=== PATIENT | female | born 1960 | race Two or more races ===

== ENCOUNTER 2017-02-20 11:14 | Inpatient (IN) | payer OTHER ==
[2017-02-20 12:19] VITALS: BMI 22.8
--- NOTE | 2017-02-20 14:28 | HP ---
CIWA Score - CIWA Score Nausea/Vomitin Muscle Tremors: 3 Anxiety: 3 Agitation: 3 Paroxysmal Sweats: 3 Orientation: 0-Oriented Tacttile Disturbances: 2-Mild Itch/Numbness/Burn Auditory Disturbances: 2-Mild Harshness/Frighten Visual Disturbances: 0-None Headache: 2-Mild CIWA-Ar Total Score: 21 Admission ROS BHS - HPI Chief Complaint: i need help to stop drinking alcohol,mmtp Allergies/Adverse Reactions: Allergies Allergy/AdvReac Type Severity Reaction Status Date / Time No Known Allergies Allergy Verified 02/20/17 14:02 History of Present Illness: this 56 years old female with alcohol depenence,seeking detox,withdrawal symptom ,mmtp 75 mgs/day, last medicated today, never been in detox before anxiety,depression,insomnia longest period of sobriety 20 years - Ebola screening Have you traveled outside of the country in the last 21 days: No (N) Have you had contact with anyone from an Ebola affected area: No Have you been sick,other than usual withdrawal symptoms: No Do you have a fever: No - Review of Systems Constitutional: No Symptoms Reported, Chills, Malaise, Night Sweats, Changes in sleep, Weakness, Unintentional Wgt. Loss EENT: reports: Nose Congestion Respiratory: reports: No Symptoms reported Cardiac: reports: No Symptoms Reported GI: reports: Diarrhea, Nausea, Poor Appetite, Vomiting, Abdominal cramping : reports: No Symptoms Reported Musculoskeletal: reports: Back Pain, Muscle Pain Integumentary: reports: Dryness Neuro: reports: Headache, Tremors Endocrine: reports: No Symptoms Reported Hematology: reports: No Symptoms Reported Psychiatric: reports: Anxious, Depressed Patient History - Patient Medical History Hx Asthma: No Hx Chronic Obstructive Pulmonary Disease (COPD): No Hx Cancer: No Hx Cardiac Disorders: No Hx Congestive Heart Failure: No Hx Hypertension: No Hx Hypercholesterolemia: No Hx Pacemaker: No HX Cerebrovascular Accident: No Hx Seizures: No Hx Dementia: No Hx Diabetes: No Hx Gastrointestinal Disorders: No Hx Genitourinary Disorders: No Hx Sexually Transmitted Disorders: No Hx Renal Disease (ESRD): No Hx Thyroid Disease: No Hx Human Immunodeficiency Virus (HIV): Yes (since 2009) Hx Hepatitis C: Yes Hx Depression: Yes (anxiety) Hx Suicide Attempt: No Hx Bipolar Disorder: No Hx Schizophrenia: No Other Medical History: n suicidal,no homicidal - Patient Surgical History Past Surgical History: No - PPD History Previous Implant?: Yes Documented Results: Negative w/o proof Implanted On Prior [facility] Admission?: No PPD to be Administered?: Yes - Reproductive History Patient : No - Smoking Cessation Smoking history: Current every day smoker Have you smoked in the past 12 months: Yes Aproximately how many cigarettes per day: 8 Hx Chewing Tobacco Use: No Initiated information on smoking cessation: Yes 'Breaking Loose' booklet given: 02/20/17 - Substance & Tx. History Hx Alcohol Use: Yes Hx Substance Use: Yes Substance Use Type: Alcohol, Heroin Hx Substance Use Treatment: No - Substances Abused Alcohol Route: Oral Frequency: Daily Amount used: 1 AND 1/2 PINTS VODKA Age of first use: 15 Date of Last Use: 02/20/17 Heroin Route: Inhalation Frequency: 1-3 times last 30 days Amount used: 1 BAG Age of first use: 25 Date of Last Use: 02/19/17 Family Disease History - Family Disease History Family Disease History: Other: Father (alcohol,), Mother ( hiv) Admission Physical Exam [facility] - Vital Signs Vital Signs: Vital Signs - 24 hr 02/20/17 12:17 Temperature 98 F Pulse Rate 83 Respiratory 18 Rate Blood Pressure 108/74 - Physical General Appearance: Yes: Moderate Distress, Tremorous, Irritable, Sweating HEENTM: Yes: Normal ENT Inspection, [place], Pharynx Normal Respiratory: Yes: Lungs Clear, Normal Breath Sounds, No Respiratory Distress Neck: Yes: Within Normal Limits, Supple, Trachea in good position Breast: Yes: Breast Exam Deferred Cardiology: Yes: Within Normal Limits, Regular Rhythm, Regular Rate, S1, S2 Abdominal: Yes: Within Normal Limits, Normal Bowel Sounds, Non Tender, Flat, Soft Genitourinary: Yes: Within Normal Limits Back: Yes: Muscle Spasm Musculoskeletal: Yes: Back pain, Muscle Pain Extremities: Yes: Tremors 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: Yes: client support coordinator II-XII NML intact, Fully Oriented, Alert, Motor Strength 5/5 Integumentary: Yes: Dry Lymphatic: Yes: Within Normal Limits - Diagnostic (1) Alcohol dependence with uncomplicated withdrawal Current Visit: Yes Status: Acute (2) Alcohol dependence with intoxication Current Visit: Yes Status: Acute (3) HIV (human immunodeficiency virus infection) Current Visit: Yes Status: Acute (4) Methadone maintenance therapy patient Current Visit: Yes Status: Acute (5) Weight loss Current Visit: Yes Status: Acute (6) Insomnia secondary to depression with anxiety Current Visit: Yes Status: Acute Cleared for Admission [facility] - Detox or Rehab [facility] Level of Care: Medically Managed Detox Regimen/Protocol: Librium [facility] Breath Alcohol Content Breath Alcohol Content: 0.464 Urine Pregancy Test - Result Urine Test Results: Negative- NO Line Present Urine Drug Screen - Results Drug Screen Negative: No Urine Drug Screen Results: OPI-Opiates, MTD-Methadone, TCA-Tricyclic Antidepress
[2017-02-20] MEDS ORDERED: MAGNESIUM CITRATE 300 ML BOTTLE PO PRN (14:38)
[2017-02-20] MEDS ORDERED: LOPERAMIDE HCL 2 MG CAPSULE PO PRN (14:38)
[2017-02-20] MEDS ORDERED: ACETAMINOPHEN 325 MG TABLET (FP) PO PRN (14:38)
[2017-02-20] MEDS ORDERED: MENTHOL/PHENOL 1 EACH UD MM PRN (14:38)
[2017-02-20] MEDS ORDERED: chlordiazePOXIDE HCL 25 MG CAPSULE PO PRN (14:38)
[2017-02-20] MEDS ORDERED: IBUPROFEN 400 MG TABLET (FP) PO PRN (14:38)
[2017-02-20] MEDS ORDERED: hydrOXYzine PAMOATE 25 MG CAPSULE (FP) PO PRN (14:38)
[2017-02-20] MEDS ORDERED: P-EPHED 60MG/TRIPROLIDI 2.5MG TABLET PO PRN (14:38)
[2017-02-20] MEDS ORDERED: guaiFENesin/D-METHORPHAN HB 10 ML UNIT-DOSE CUPS PO PRN (14:38)
[2017-02-20] MEDS ORDERED: MAGNESIUM HYDROX 2400MG/30ML ORAL SUSPENSION 30 ML CUP PO PRN (14:38)
[2017-02-20] MEDS ORDERED: MAG HYDROX/AL HYDROX/SIMETH 30 ML UNIT-DOSE CUP PO PRN (14:38)
[2017-02-20] MEDS ORDERED: chlordiazePOXIDE HCL 25 MG CAPSULE PO ONE (15:29)
[2017-02-20 16:56] LABS: URINE APPEARANCE CLEAR; URINE BILIRUBIN NEGATIVE (NEGATIVE); URINE BLOOD 1+ (NEGATIVE); URINE COLOR STRAW; URINE GLUCOSE (UA) NEGATIVE (NEGATIVE); URINE KETONE NEGATIVE (NEGATIVE); URINE LEUK ESTERASE NEGATIVE (NEGATIVE); URINE NITRITE NEGATIVE (NEGATIVE); URINE PROTEIN NEGATIVE (NEGATIVE); URINE UROBILINOGEN NEGATIVE mg/dL (0.2-1.0)
[2017-02-20] MEDS: chlordiazePOXIDE HCL 25 MG CAPSULE PO SCH ×2 (17:05→22:08)
[2017-02-20 17:08] LABS: EPI CELLS RARE /HPF (FEW)
[2017-02-20] MEDS: NICOTINE 14 MG/24 HOURS TOPICAL PATCH TD SCH (17:11)
--- NOTE | 2017-02-20 18:31 | CONSULT ---
[facility] Psychiatric Consult - Data Date of interview: 02/20/17 Admission source: [facility] Identifying data: Pt. is a 56 year old single, mother of two, and currently unemployed. This is patient's first admission to [facility]. Pt. admitted to for heroin and alcohol dependence. Substance Abuse History: Following information confirmed with Ms. Sequeira: - Smoking Cessation. Smoking history: Current every day smoker. Have you smoked in the past 12 months: Yes. Aproximately how many cigarettes per day: 8. Hx Chewing Tobacco Use: No. Initiated information on smoking cessation: Yes. ' Breaking Loose' booklet given: 02/20/17. - Substance & Tx. History. Hx Alcohol Use: Yes. Hx Substance Use: Yes. Substance Use Type: Alcohol, Heroin. Hx Substance Use Treatment: No. - Substances Abused. Alcohol. Route: Oral. Frequency: Daily. Amount used: 1 AND 1/2 PINTS VODKA. Age of first use : 15. Date of Last Use: 02/20/17. Heroin. Route: Inhalation. Frequency: 1 -3 times last 30 days. Amount used: 1 BAG. Age of first use: 25. Date of Last Use: 02/19/17 Medical History: Hep C, HIV Psychiatric History: Pt. denies h/o psychiatric hospitalizations. Reports seeing a psychiatrist at [facility], [place] on [address] [place] [address] 3-4 months ago but is currently looking for a new provider. Pt. is currently prescribed amitriptyline 25mg po daily (reports non adherent to amitriptyline), lexapro 20mg and trazodone 100mg (reports taking trazodone 50mg at home). Reports taking lexapro and trazodone two days ago. Pt. stated she was diagnosed as Bipolar diorder but disagreed with the diagnosis. Pt. denies h/o suicide attempt. Physical/Sexual Abuse/Trauma History: Denies. Mental Status Exam - Mental Status Exam Alert and Oriented to: Time, Place, Person Cognitive Function: Good Patient Appearance: Unkempt Mood: Euthymic Affect: Mood Congruent Patient Behavior: Talkative, Cooperative Speech Pattern: Appropriate Voice Loudness: Normal Thought Process: Circumstantial Thought Disorder: Not Present Hallucinations: Denies Suicidal Ideation: Denies Homicidal Ideation: Denies Insight/Judgement: Poor Sleep: Poorly Appetite: Fair Muscle strength/Tone: Normal Gait/Station: Normal Psychiatric Findings - Problem List ([place] 1, 2,3) (1) Alcohol dependence with uncomplicated withdrawal Current Visit: Yes Status: Acute (2) Opioid dependence Current Visit: Yes Status: Acute (3) Bipolar disorder Current Visit: Yes Status: Chronic Comment: Self reports. (4) Methadone maintenance therapy patient Current Visit: Yes Status: Acute - Initial Treatment Plan Initial Treatment Plan: Psychoeducation provided. Detoxification provided. Lexapro 20mg po daily + Trazodone 50mg qhs ordered for insomnia. Verbal consent given. Pharmacy claims reviewed. Benefits and side effects discussed. Will continue to monitor patient.
[2017-02-20] MEDS: THIAMINE HCL 100 MG TABLET (FP) PO SCH (22:08)
[2017-02-20] MEDS: traZODone HCL 50 MG TABLET (FP) PO SCH (22:08)
[2017-02-21] MEDS: chlordiazePOXIDE HCL 25 MG CAPSULE PO SCH ×4 (05:34→22:01)
--- NOTE | 2017-02-21 09:13 | EKG ---
Test Reason : Blood Pressure : / mmHG Vent. Rate : 081 BPM Atrial Rate : 081 BPM P-R Int : 176 ms QRS Dur : 080 ms QT Int : 388 ms P-R-T Axes : 061 062 061 degrees QTc Int : 450 ms NORMAL SINUS RHYTHM POSSIBLE LEFT ATRIAL ENLARGEMENT NONSPECIFIC ST ABNORMALITY ABNORMAL ECG NO PREVIOUS ECGS AVAILABLE Confirmed by DORY ELENA MD ([id number]) on 02/21/2017 9:12:51 AM Referred By: Confirmed By:DORY ELENA MD
[2017-02-21 09:51] LABS: HEMOGLOBIN 12.6 GM/dL (10.7-15.3); MCH 28.4 pg (25.7-33.7); MCHC 31.5 g/dl (32.0-36.0); MEAN CELL VOLUME 90.2 fl (80-96); MEAN PLT VOLUME 8.4 fl (7.5-11.1); PLATELET COUNT 195 K/MM3 (134-434); RBC 4.43 M/mm3 (3.60-5.2); WHITE BLOOD COUNT 3.7 K/mm3 (4.0-10.0)
[2017-02-21 10:05] LABS: CHLORIDE 103 mmol/L (98-107); POTASSIUM 4.6 mmol/L (3.5-5.1); SODIUM 139 mmol/L (136-145)
[2017-02-21 10:24] LABS: ALBUMIN 3.6 g/dl (3.4-5.0); ALK PHOS 108 U/L (45-117); ANION GAP 2 (8-16); BILIRUBIN,TOTAL 0.6 mg/dL (0.2-1.0); BLOOD UREA NITROGEN 19 mg/dL (7-18); CALCIUM 8.9 mg/dL (8.5-10.1); CO2 34 mmol/L (21-32); CREATININE 0.6 mg/dL (0.55-1.02); GLUCOSE,RANDOM 90 mg/dL (74-106); SGOT/AST 44 U/L (15-37); SGPT/ALT 56 U/L (12-78)
[2017-02-21] MEDS: PRENATAL VITAMINS W/ FOLIC ACID TABLET (FP) PO SCH (10:33)
[2017-02-21] MEDS: ESCITALOPRAM OXALATE 20 MG TABLET (FP) PO SCH (10:33)
[2017-02-21] MEDS: NICOTINE 14 MG/24 HOURS TOPICAL PATCH TD SCH (10:34)
[2017-02-21] MEDS ORDERED: METHADONE HCL 10 MG TABLET PO ONE (10:42)
[2017-02-21] MEDS ORDERED: METHADONE 40 MG, METHADONE 30 MG PO ONE (10:48)
[2017-02-21] MEDS ORDERED: METHADONE HCL 40 MG DISPERSABLE TABLET ONE (11:16)
[2017-02-21] MEDS ORDERED: METHADONE HCL 10 MG TABLET ONE (11:17)
--- NOTE | 2017-02-21 11:38 | PN ---
S CIWA - CIWA Score Nausea/Vomitin-No Nausea/No Vomiting Muscle Tremors: 4-Moderate,w/Arms Extend Anxiety: 3 Agitation: 3 Paroxysmal Sweats: 3 Orientation: 0-Oriented Tacttile Disturbances: 0-None Auditory Disturbances: 0-None Visual Disturbances: 0-None Headache: 1-Very Mild CIWA-Ar Total Score: 14 S Progress Note (SOAP) Subjective: agitation sweats shakes interrupted sleep body aches Objective: 02/21/17 11:37 Vital Signs Temperature 99.5 F 02/21/17 10:12 Pulse Rate 89 02/21/17 10:12 Respiratory Rate 18 02/21/17 10:12 Blood Pressure 113/82 02/21/17 10:12 O2 Sat by Pulse Oximetry (%) Laboratory Tests 02/20/17 02/21/17 02/21/17 15:00 07:00 07:00 WBC 3.7 L RBC 4.43 Hgb 12.6 Hct 40.0 MCV 90.2 MCH 28.4 MCHC 31.5 L RDW 15.0 Plt Count 195 MPV 8.4 Sodium 139 Potassium 4.6 Chloride 103 Carbon Dioxide 34 H Anion Gap 2 L BUN 19 H Creatinine 0.6 Creat Clearance w eGFR > 60 Random Glucose 90 Calcium 8.9 Total Bilirubin 0.6 AST 44 H ALT 56 Alkaline Phosphatase 108 Total Protein 7.0 Albumin 3.6 Urine Color Straw Urine Appearance Clear Urine pH 6.0 Ur Specific [place] 1.005 Urine Protein Negative Urine Glucose (UA) Negative Urine Ketones Negative Urine Blood 1+ H Urine Nitrite Negative Urine Bilirubin Negative Urine Urobilinogen Negative Ur Leukocyte Esterase Negative Urine WBC (Auto) <1 Urine RBC (Auto) None Ur Epithelial Cells Rare aaox3 ambulating no acute distress Assessment: 02/21/17 11:38 withdrawal sx Plan: continue detox increase fluids
[2017-02-21] MEDS: traZODone HCL 50 MG TABLET (FP) PO SCH (22:01)
[2017-02-21] MEDS: THIAMINE HCL 100 MG TABLET (FP) PO SCH (22:01)
[2017-02-22] MEDS ORDERED: METHADONE HCL 40 MG DISPERSABLE TABLET ONE (05:16)
[2017-02-22] MEDS ORDERED: METHADONE HCL 10 MG TABLET ONE (05:16)
[2017-02-22] MEDS: chlordiazePOXIDE HCL 25 MG CAPSULE PO SCH ×2 (05:46→10:31)
[2017-02-22] MEDS ORDERED: METHADONE 40 MG, METHADONE 30 MG PO SCH (06:00)
[2017-02-22] MEDS ORDERED: METHADONE HCL 40 MG DISPERSABLE TABLET PO SCH (06:00)
--- NOTE | 2017-02-22 10:19 | PN ---
S CIWA - CIWA Score Nausea/Vomitin Muscle Tremors: 3 Anxiety: 2 Agitation: 2 Paroxysmal Sweats: 1-Minimal Palms Moist Orientation: 0-Oriented Tacttile Disturbances: 1-Very Mild Itch/Numbness Auditory Disturbances: 1-Very Mild Visual Disturbances: 0-None Headache: 1-Very Mild CIWA-Ar Total Score: 14 BHS Progress Note (SOAP) Subjective: ALERT,IRRITABLE,LESS TREMOR,ANXIOUS Objective: 02/22/17 10:17 Vital Signs Temperature 98.1 F 02/22/17 06:00 Pulse Rate 65 02/22/17 06:00 Respiratory Rate 18 02/22/17 06:00 Blood Pressure 122/79 02/22/17 06:00 O2 Sat by Pulse Oximetry (%) Laboratory Last Values WBC 3.7 K/mm3 (4.0-10.0) L 02/21/17 07:00 RBC 4.43 M/mm3 (3.60-5.2) 02/21/17 07:00 Hgb 12.6 GM/dL (10.7-15.3) 02/21/17 07:00 Hct 40.0 % (32.4-45.2) 02/21/17 07:00 MCV 90.2 fl (80-96) 02/21/17 07:00 MCH 28.4 pg (25.7-33.7) 02/21/17 07:00 MCHC 31.5 g/dl (32.0-36.0) L 02/21/17 07:00 RDW 15.0 % (11.6-15.6) 02/21/17 07:00 Plt Count 195 K/MM3 (134-434) 02/21/17 07:00 MPV 8.4 fl (7.5-11.1) 02/21/17 07:00 Sodium 139 mmol/L (136-145) 02/21/17 07:00 Potassium 4.6 mmol/L (3.5-5.1) 02/21/17 07:00 Chloride 103 mmol/L (98-107) 02/21/17 07:00 Carbon Dioxide 34 mmol/L (21-32) H 02/21/17 07:00 Anion Gap 2 (8-16) L 02/21/17 07:00 BUN 19 mg/dL (7-18) H 02/21/17 07:00 Creatinine 0.6 mg/dL (0.55-1.02) 02/21/17 07:00 Creat Clearance w eGFR > 60 (>60) 02/21/17 07:00 Random Glucose 90 mg/dL (74-106) 02/21/17 07:00 Calcium 8.9 mg/dL (8.5-10.1) 02/21/17 07:00 Total Bilirubin 0.6 mg/dL (0.2-1.0) 02/21/17 07:00 AST 44 U/L (15-37) H 02/21/17 07:00 ALT 56 U/L (12-78) 02/21/17 07:00 Alkaline Phosphatase 108 U/L (45-117) 02/21/17 07:00 Total Protein 7.0 g/dl (6.4-8.2) 02/21/17 07:00 Albumin 3.6 g/dl (3.4-5.0) 02/21/17 07:00 Urine Color Straw 02/20/17 15:00 Urine Appearance Clear 02/20/17 15:00 Urine pH 6.0 (5.0-8.0) 02/20/17 15:00 Ur Specific [place] 1.005 (1.001-1.035) 02/20/17 15:00 Urine Protein Negative (NEGATIVE) 02/20/17 15:00 Urine Glucose (UA) Negative (NEGATIVE) 02/20/17 15:00 Urine Ketones Negative (NEGATIVE) 02/20/17 15:00 Urine Blood 1+ (NEGATIVE) H 02/20/17 15:00 Urine Nitrite Negative (NEGATIVE) 02/20/17 15:00 Urine Bilirubin Negative (NEGATIVE) 02/20/17 15:00 Urine Urobilinogen Negative mg/dL (0.2-1.0) 02/20/17 15:00 Ur Leukocyte Esterase Negative (NEGATIVE) 02/20/17 15:00 Urine WBC (Auto) <1 /hpf (3-5) 02/20/17 15:00 Urine RBC (Auto) None /hpf (0-3) 02/20/17 15:00 Ur Epithelial Cells Rare /HPF (FEW) 02/20/17 15:00 RPR Titer Nonreactive (NONREACTIVE) 02/21/17 07:00 Assessment: 02/22/17 10:18 WITHDRAWAL SYMPTOM Plan: CONTINUE DETOX,PATIENT IS ON METHADONE MAINTENANCE 70 MGS/DAY,WILL DISCHARGE PATIENT AT 0700AM ON 02/23/17 TO GET METHADONE DOSE FOR Saturday02/24/17 AND Sat02/25/17
[2017-02-22] MEDS: PRENATAL VITAMINS W/ FOLIC ACID TABLET (FP) PO SCH (10:30)
[2017-02-22] MEDS: ESCITALOPRAM OXALATE 20 MG TABLET (FP) PO SCH (10:30)
[2017-02-22] MEDS: NICOTINE 14 MG/24 HOURS TOPICAL PATCH TD SCH (10:31)
[2017-02-22 10:40] VITALS: BP 117/84; PULSE 94; TEMP 98.2
--- NOTE | 2017-02-22 11:12 | PN ---
[facility] Progress Note Note: PATIENT DID NOT WANT TO COMPLETE TREATMENT,SIGNED RELEASE AMA,SEEN BY COUNSELOR, DID NOT WANT TO WAIT
--- NOTE | 2017-02-22 11:16 | DS ---
[facility] Detox Discharge Summary Admission Date: 02/20/17 Discharge Date: 02/22/17 - History Present History: Alcohol Dependence, Sedative Dependence Additional Comments: PATIENT SIGNED RELEASE AMA,SEEN BY COUNSELOR,WILL FOLLOW UP WITH HER PMD Pertinent Past History: HIV MMTP WEIGHT LOSS INSOMNIA - Physical Exam Results Vital Signs: Vital Signs Temperature 98.2 F 02/22/17 10:39 Pulse Rate 94 H 02/22/17 10:39 Respiratory Rate 18 02/22/17 10:39 Blood Pressure 117/84 02/22/17 10:39 O2 Sat by Pulse Oximetry (%) Pertinent Admission Physical Exam Findings: WITHDRAWAL SYMPTOM AND FINDING - Treatment Patient has Accepted a Rehab Referral to: DECLINED - Medication Discharge Medications: Ambulatory Orders Amitriptyline HCl [Elavil -] 25 mg PO HS PRN 02/20/17 Escitalopram Oxalate [Lexapro -] 20 mg PO DAILY 02/20/17 Trazodone HCl [Desyrel -] 50 mg PO HS 02/20/17 - Diagnosis (1) Alcohol dependence with uncomplicated withdrawal Current Visit: Yes Status: Chronic (2) Alcohol dependence with intoxication Current Visit: Yes Status: Chronic Qualifiers: Complication of substance-induced condition: uncomplicated Qualified Code(s ): F10.220 - Alcohol dependence with intoxication, uncomplicated (3) HIV (human immunodeficiency virus infection) Current Visit: Yes Status: Chronic (4) Methadone maintenance therapy patient Current Visit: Yes Status: Chronic (5) Weight loss Current Visit: Yes Status: Acute (6) Insomnia secondary to depression with anxiety Current Visit: Yes Status: Acute - AMA Did Patient Leave Against Medical Advice: Yes
[2017-02-22] MEDS ORDERED: chlordiazePOXIDE 5 MG CAPSULE PO SCH (17:00)
[2017-02-23] MEDS ORDERED: chlordiazePOXIDE HCL 10 MG CAPSULE PO SCH (17:00)
== END 2017-02-22 11:30 | disposition home or self-care (01) | DRG 773 ==
LOC: YASAS 11:14 → Y6N 15:16
PROVIDERS: ADMIT Internal Medicine; ATTEND Internal Medicine
PROC: HZ2ZZZZ Detoxification Services for Substance Abuse Treatment (ICD-10-PCS; principal; 2017-02-20)
DX: F11.20 Opioid dependence, uncomplicated (principal); F10.230 Alcohol dependence with withdrawal, uncomplicated; F41.8 Other specified anxiety disorders; F31.9 Bipolar disorder, unspecified; B18.2 Chronic viral hepatitis C; Z21 Asymptomatic human immunodeficiency virus [HIV] infection status; R63.4 Abnormal weight loss; Z68.22 Body mass index [BMI] 22.0-22.9, adult
CPT/HCPCS: 36415; 80053; 81003; 81015; 85027; 86593; 93005; 93010

== ENCOUNTER 2017-05-15 14:20 | Inpatient (IN) | payer OTHER ==
[2017-05-15 16:27] VITALS: BMI 21.0
--- NOTE | 2017-05-15 17:21 | HP ---
CIWA Score - CIWA Score Nausea/Vomitin Muscle Tremors: 2 Anxiety: 2 Agitation: 2 Paroxysmal Sweats: 2 Orientation: 1-Uncertain about Date Tacttile Disturbances: 2-Mild Itch/Numbness/Burn Auditory Disturbances: 1-Very Mild Visual Disturbances: 1-Very Mild Sensitivity Headache: 2-Mild CIWA-Ar Total Score: 17 Admission ROS BHS - HPI Chief Complaint: WITHDRAWAL SYMPTOMS Allergies/Adverse Reactions: Allergies Allergy/AdvReac Type Severity Reaction Status Date / Time No Known Allergies Allergy Verified 02/20/17 14:02 History of Present Illness: 57 Y.O. WOMAN WITH AN EXTENSIVE HISTORY OF ALCOHOL ASSISTANCE IS HERE FOR DETOX. SHE WAS LAST HERE IN February, BUT LEFT AMA. LONGEST PERIOD SOBER HAS BEEN 10 YEARS AND REPORTS RELAPSING 1 YEAR AGO. SHE IS CURRENTLY ENROLLED AT [facility]S MMTP AND STATES LDM ON 05/15/17 AT 70MG. Exam Limitations: Intoxication - Ebola screening Have you traveled outside of the country in the last 21 days: No Have you had contact with anyone from an Ebola affected area: No Have you been sick,other than usual withdrawal symptoms: No Do you have a fever: No - Review of Systems Constitutional: Chills, Loss of Appetite, Unintentional Wgt. Loss EENT: reports: Nose Congestion Respiratory: reports: Shortness of Breath Cardiac: reports: No Symptoms Reported GI: reports: Nausea : reports: No Symptoms Reported Musculoskeletal: reports: Back Pain, Neck Pain Integumentary: reports: No Symptoms Reported Neuro: reports: Tremors Endocrine: reports: No Symptoms Reported Hematology: reports: Anemia Psychiatric: reports: Anxious Other Systems: Reviewed and Negative Patient History - Patient Medical History Hx Anemia: Yes (AILEEN ) Hx Asthma: No Hx Chronic Obstructive Pulmonary Disease (COPD): No Hx Cancer: No Hx Cardiac Disorders: No Hx Congestive Heart Failure: No Hx Hypertension: No Hx Hypercholesterolemia: No Hx Pacemaker: No HX Cerebrovascular Accident: No Hx Seizures: No Hx Dementia: No Hx Diabetes: No Hx Gastrointestinal Disorders: No Hx Liver Disease: Yes Hx Genitourinary Disorders: No Hx Sexually Transmitted Disorders: No Hx Renal Disease (ESRD): No Hx Thyroid Disease: No Hx Human Immunodeficiency Virus (HIV): Yes (since 2009) Hx Hepatitis C: Yes Hx Depression: Yes (anxiety) Hx Suicide Attempt: No Hx Bipolar Disorder: No Hx Schizophrenia: No - Patient Surgical History Past Surgical History: No - PPD History Previous Implant?: Yes Documented Results: Negative w/o proof Implanted On Prior R Admission?: No PPD to be Administered?: Yes - Reproductive History Patient is a Female of Child Bearing Age (11 -55 yrs old): No Patient : No - Smoking Cessation Smoking history: Current every day smoker Have you smoked in the past 12 months: Yes Aproximately how many cigarettes per day: 8 Hx Chewing Tobacco Use: No Initiated information on smoking cessation: Yes 'Breaking Loose' booklet given: 05/15/17 - Substance & Tx. History Hx Alcohol Use: Yes Hx Substance Use: Yes Substance Use Type: Alcohol Hx Substance Use Treatment: Yes (DETOX: 02/2017 LEFT AMA; MMTP ) - Substances Abused Alcohol Route: Oral Frequency: Daily Amount used: 1 PINT OF LIQUOR Age of first use: 14 Date of Last Use: 05/15/17 Family Disease History - Family Disease History Family Disease History: Other: Father (alcohol,), Mother ( hiv) Admission Physical Exam [facility] - Vital Signs Vital Signs: Vital Signs - 24 hr 05/15/17 16:26 Temperature 97.7 F Pulse Rate 85 Respiratory 18 Rate Blood Pressure 100/64 - Physical General Appearance: Yes: Disheveled, Intoxicated, Tremorous, Anxious HEENTM: Yes: Hearing grossly Normal, Normal ENT Inspection, Normocephalic, Rhinorrhea Respiratory: Yes: Chest Non-Tender, Lungs Clear, Normal Breath Sounds, No Respiratory Distress, No Accessory Muscle Use Neck: Yes: No masses,lesions,Nodules, Trachea in good position Breast: Yes: Breast Exam Deferred Cardiology: Yes: Regular Rhythm, Regular Rate Abdominal: Yes: Non Tender, Flat Genitourinary: Yes: Other (NO COMPLAINTS REPORTED) Back: Yes: Normal Inspection Musculoskeletal: Yes: full range of Motion, Gait Steady Extremities: Yes: Normal Inspection, Normal Range of Motion 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: Yes: Alert, Normal Response Integumentary: Yes: Dry, Warm Lymphatic: Yes: Within Normal Limits - Diagnostic (1) Nicotine dependence Current Visit: Yes Status: Chronic (2) Alcohol dependence with uncomplicated withdrawal Current Visit: Yes Status: Chronic (3) HIV (human immunodeficiency virus infection) Current Visit: Yes Status: Chronic (4) Methadone maintenance therapy patient Current Visit: Yes Status: Chronic Cleared for Admission [facility] - Detox or Rehab [facility] Level of Care: Medically Managed Detox Regimen/Protocol: Librium [facility] Breath Alcohol Content Breath Alcohol Content: 0.257 Urine Pregancy Test - Result Urine Test Results: Negative- NO Line Present Urine Drug Screen - Results Drug Screen Negative: No Urine Drug Screen Results: JAYLEN-Cocaine, OPI-Opiates, BZO-Benzodiazepines, MTD- Methadone
[2017-05-15] MEDS ORDERED: MAG HYDROX/AL HYDROX/SIMETH 30 ML UNIT-DOSE CUP PO PRN (17:36)
[2017-05-15] MEDS ORDERED: chlordiazePOXIDE HCL 25 MG CAPSULE PO PRN (17:36)
[2017-05-15] MEDS ORDERED: LOPERAMIDE HCL 2 MG CAPSULE PO PRN (17:36)
[2017-05-15] MEDS ORDERED: IBUPROFEN 400 MG TABLET (FP) PO PRN (17:36)
[2017-05-15] MEDS ORDERED: MENTHOL/PHENOL 1 EACH UD MM PRN (17:36)
[2017-05-15] MEDS ORDERED: MAGNESIUM CITRATE 300 ML BOTTLE PO PRN (17:36)
[2017-05-15] MEDS ORDERED: NICOTINE POLACRILEX 2 MG GUM BUC PRN (17:36)
[2017-05-15] MEDS ORDERED: ACETAMINOPHEN 325 MG TABLET (FP) PO PRN (17:36)
[2017-05-15] MEDS ORDERED: MAGNESIUM HYDROX 2400MG/30ML ORAL SUSPENSION 30 ML CUP PO PRN (17:36)
[2017-05-15] MEDS ORDERED: guaiFENesin/D-METHORPHAN HB 10 ML UNIT-DOSE CUPS PO PRN (17:36)
[2017-05-15] MEDS ORDERED: hydrOXYzine PAMOATE 50 MG CAPSULE (FP) PO PRN (17:36)
[2017-05-15] MEDS ORDERED: chlordiazePOXIDE HCL 25 MG CAPSULE PO ONE (17:36)
[2017-05-15] MEDS: P-EPHED 60MG/TRIPROLIDI 2.5MG TABLET PO PRN (20:10)
[2017-05-15] MEDS ORDERED: MELATONIN 5 MG TABLETS PO PRN (22:00)
[2017-05-15] MEDS: THIAMINE HCL 100 MG TABLET (FP) PO SCH (22:27)
[2017-05-15] MEDS: chlordiazePOXIDE HCL 25 MG CAPSULE PO SCH (22:27)
[2017-05-15 22:49] LABS: URINE APPEARANCE CLEAR; URINE BILIRUBIN NEGATIVE (<2.0 mg/dL); URINE BLOOD NEGATIVE (NEGATIVE); URINE COLOR LTYELLOW; URINE GLUCOSE (UA) NEGATIVE (NEGATIVE); URINE KETONE NEGATIVE (NEGATIVE); URINE LEUK ESTERASE TRACE (NEGATIVE); URINE NITRITE NEGATIVE (NEGATIVE); URINE PROTEIN NEGATIVE (NEGATIVE); URINE UROBILINOGEN NEGATIVE mg/dL (0.2-1.0)
[2017-05-15 22:55] LABS: EPI CELLS RARE /HPF (FEW); URINE BACTERIA RARE /hpf (NONE SEEN); URINE HYALINE CAST 10 /lpf; URINE MUCUS RARE
[2017-05-16] MEDS: chlordiazePOXIDE HCL 25 MG CAPSULE PO SCH ×4 (05:09→22:19)
--- NOTE | 2017-05-16 07:34 | CONSULT ---
[facility] Psychiatric Consult - Data Date of interview: 05/16/17 Admission source: [facility] Identifying data: This is 57 years old female, single mother of two, living with brother, unemployed , on SSI, with no psychiatric hospitalization history, is here for detox due to Alcohol intoxication,. Patient on MMTP, with history of Alcohol, Nicotine, Cocaine, Opioids, Benzo abuse/dependence as well. Substance Abuse History: Urine Drug Screen Results: JAYLEN-Cocaine, OPI-Opiates, BZO-Benzodiazepines, MTD-Methadone. Smoking history: Current every day smoker. Have you smoked in the past 12 months: Yes. Aproximately how many cigarettes per day: 8. Hx Chewing Tobacco Use: No. Initiated information on smoking cessation: Yes. 'Breaking Loose' booklet given: 05/15/17. - Substance & Tx. History. Hx Alcohol Use: Yes. Hx Substance Use: Yes. Substance Use Type: Alcohol. Hx Substance Use Treatment: Yes (DETOX: 02/2017 LEFT AMA; MMTP ). - Substances Abused. Alcohol. Route: Oral. Frequency: Daily. Amount used: 1 PINT OF LIQUOR. Age of first use: 14. Date of Last Use: 05/15/17 Medical History: MMTP 70mg per day, HIV+ history Psychiatric History: Patient reports anxiety and depression history, reports taking prior to admission: Lexapro 20mg poqd, as per computer has been on: Lexapro 20mg poqd. Trazodone 50mg po qhs. As per computer there is a history of Bipolar Disorder. Denies suicidal, Homicidal history. Elavil 25mg po qhs Physical/Sexual Abuse/Trauma History: Denies Additional Comment: Urine Drug Screen Results: JAYLEN-Cocaine, OPI-Opiates, BZO- Benzodiazepines, MTD-Methadone. Lexapro 20mg poqd. Trazodone 50mg po qhs. Elavil 25mg po qhs Mental Status Exam - Mental Status Exam Alert and Oriented to: Person Cognitive Function: Fair Patient Appearance: Unkempt Mood: Anxious Affect: Mood Congruent Patient Behavior: Cooperative Speech Pattern: Appropriate Voice Loudness: Mildly Soft/Quiet Thought Process: Circumstantial Thought Disorder: Being Controlled Hallucinations: Denies Suicidal Ideation: Denies Homicidal Ideation: Denies Insight/Judgement: Fair Sleep: Difficulty falling asleep Appetite: Fair Muscle strength/Tone: Normal Gait/Station: Shuffling Additional Comments: Lexapro 20mg poqd. Trazodone 50mg po qhs. Elavil 25mg po qhs Psychiatric Findings - Problem List ([place] 1, 2,3) (1) Drug-induced mood disorder Current Visit: Yes Status: Acute (2) Alcohol dependence with uncomplicated withdrawal Current Visit: Yes Status: Chronic (3) Methadone maintenance therapy patient Current Visit: Yes Status: Chronic (4) Alcohol dependence with intoxication Current Visit: No Status: Chronic Qualifiers: Complication of substance-induced condition: uncomplicated Qualified Code(s ): F10.220 - Alcohol dependence with intoxication, uncomplicated (5) Bipolar disorder Current Visit: No Status: Chronic Comment: Self reports. - Initial Treatment Plan Initial Treatment Plan: Lexapro 20mg poqd
[2017-05-16] MEDS ORDERED: METHADONE HCL 40 MG DISPERSABLE TABLET PO SCH (08:30)
[2017-05-16] MEDS ORDERED: METHADONE HCL 40 MG DISPERSABLE TABLET ONE (09:18)
[2017-05-16] MEDS ORDERED: METHADONE HCL 10 MG TABLET ONE (09:19)
--- NOTE | 2017-05-16 09:33 | PN ---
S CIWA - CIWA Score Nausea/Vomitin Muscle Tremors: 3 Anxiety: 3 Agitation: 2 Paroxysmal Sweats: 1-Minimal Palms Moist Orientation: 0-Oriented Tacttile Disturbances: 1-Very Mild Itch/Numbness Auditory Disturbances: 1-Very Mild Visual Disturbances: 0-None Headache: 2-Mild CIWA-Ar Total Score: 16 BHS Progress Note (SOAP) Subjective: ALERT,IRRITABLE,ANXIOUS,INTERRUPTED SLEEP,TREMOR,PAIN IN THE BODY AND BACK Objective: 05/16/17 09:31 Vital Signs Temperature 98.2 F 05/16/17 06:10 Pulse Rate 71 05/16/17 08:00 Respiratory Rate 18 05/16/17 08:00 Blood Pressure 135/81 05/16/17 06:10 O2 Sat by Pulse Oximetry (%) EKG NSR,NORMAL ECG 05/16/17 09:31 Laboratory Last Values Urine Color Ltyellow 05/15/17 22:30 Urine Appearance Clear 05/15/17 22:30 Urine pH 7.0 (5.0-8.0) 05/15/17 22:30 Ur Specific [place] 1.010 (1.001-1.035) 05/15/17 22:30 Urine Protein Negative (NEGATIVE) 05/15/17 22:30 Urine Glucose (UA) Negative (NEGATIVE) 05/15/17 22:30 Urine Ketones Negative (NEGATIVE) 05/15/17 22:30 Urine Blood Negative (NEGATIVE) 05/15/17 22:30 Urine Nitrite Negative (NEGATIVE) 05/15/17 22:30 Urine Bilirubin Negative (<2.0 mg/dL) 05/15/17 22:30 Urine Urobilinogen Negative mg/dL (0.2-1.0) 05/15/17 22:30 Ur Leukocyte Esterase Trace (NEGATIVE) 05/15/17 22:30 Urine WBC (Auto) 1 /hpf (3-5) 05/15/17 22:30 Urine RBC (Auto) None /hpf (0-3) 05/15/17 22:30 Ur Epithelial Cells Rare /HPF (FEW) 05/15/17 22:30 Urine Bacteria Rare /hpf (NONE SEEN) 05/15/17 22:30 Hyaline Casts 10 /lpf 05/15/17 22:30 Urine Mucus Rare 05/15/17 22:30 LABS PENDING Assessment: 05/16/17 09:32 WITHDRAWAL SYMPTOM Plan: CONTINUE DETOX
[2017-05-16] MEDS: METHADONE 40 MG, METHADONE 30 MG PO SCH (10:10)
[2017-05-16] MEDS: ESCITALOPRAM OXALATE 20 MG TABLET (FP) PO SCH (10:10)
[2017-05-16] MEDS: NICOTINE 14 MG/24 HOURS TOPICAL PATCH TD SCH (10:11)
[2017-05-16] MEDS: PRENATAL VITAMINS W/ FOLIC ACID TABLET (FP) PO SCH (10:11)
[2017-05-16 10:33] LABS: HEMATOCRIT 36.9 % (32.4-45.2); MCH 29.4 pg (25.7-33.7); MCHC 32.4 g/dl (32.0-36.0); MEAN CELL VOLUME 90.8 fl (80-96); MEAN PLT VOLUME 8.6 fl (7.5-11.1); PLATELET COUNT 189 K/MM3 (134-434); RBC 4.07 M/mm3 (3.60-5.2); RDW 15.4 % (11.6-15.6); WHITE BLOOD COUNT 3.6 K/mm3 (4.0-10.0)
[2017-05-16 10:57] LABS: ALBUMIN 3.5 g/dl (3.4-5.0); ALK PHOS 94 U/L (45-117); ANION GAP 7 (8-16); BILIRUBIN,TOTAL 0.3 mg/dL (0.2-1.0); BLOOD UREA NITROGEN 18 mg/dL (7-18); CALCIUM 9.1 mg/dL (8.5-10.1); CHLORIDE 104 mmol/L (98-107); CO2 33 mmol/L (21-32); CREATININE 0.6 mg/dL (0.55-1.02); GLUCOSE,RANDOM 80 mg/dL (74-106); POTASSIUM 4.8 mmol/L (3.5-5.1); SGOT/AST 29 U/L (15-37); SGPT/ALT 31 U/L (12-78); SODIUM 144 mmol/L (136-145); TOT PROT 6.8 g/dl (6.4-8.2)
--- NOTE | 2017-05-16 11:08 | EKG ---
Test Reason : Blood Pressure : / mmHG Vent. Rate : 079 BPM Atrial Rate : 079 BPM P-R Int : 138 ms QRS Dur : 086 ms QT Int : 382 ms P-R-T Axes : 071 071 062 degrees QTc Int : 438 ms NORMAL SINUS RHYTHM NORMAL ECG WHEN COMPARED WITH ECG OF 20-FEB-2017 17:00, NO SIGNIFICANT CHANGE WAS FOUND Confirmed by TIRSO CORDON MD ([id number]) on 05/16/2017 11:08:01 AM Referred By: Niranjan ROJAS Confirmed By:TIRSO CORDON MD
[2017-05-16] MEDS: THIAMINE HCL 100 MG TABLET (FP) PO SCH (22:19)
[2017-05-17] MEDS ORDERED: METHADONE HCL 40 MG DISPERSABLE TABLET ONE (04:40)
[2017-05-17] MEDS ORDERED: METHADONE HCL 10 MG TABLET ONE (04:41)
[2017-05-17] MEDS: chlordiazePOXIDE HCL 25 MG CAPSULE PO SCH ×3 (06:00→17:43)
[2017-05-17] MEDS: METHADONE 40 MG, METHADONE 30 MG PO SCH (06:00)
--- NOTE | 2017-05-17 10:10 | PN ---
S CIWA - CIWA Score Nausea/Vomitin Muscle Tremors: 3 Anxiety: 3 Agitation: 2 Paroxysmal Sweats: 1-Minimal Palms Moist Orientation: 0-Oriented Tacttile Disturbances: 1-Very Mild Itch/Numbness Auditory Disturbances: 1-Very Mild Visual Disturbances: 0-None Headache: 2-Mild CIWA-Ar Total Score: 16 BHS Progress Note (SOAP) Subjective: ALERT,IRRITABLE,ANXIOUS,INTERRUPTED SLEEP,TREMOR Objective: 05/17/17 10:09 Vital Signs Temperature 97.7 F 05/17/17 06:30 Pulse Rate 57 L 05/17/17 06:30 Respiratory Rate 18 05/17/17 06:30 Blood Pressure 119/77 05/17/17 06:30 O2 Sat by Pulse Oximetry (%) 05/17/17 10:09 Laboratory Last Values WBC 3.6 K/mm3 (4.0-10.0) L 05/16/17 07:00 RBC 4.07 M/mm3 (3.60-5.2) 05/16/17 07:00 Hgb 12.0 GM/dL (10.7-15.3) 05/16/17 07:00 Hct 36.9 % (32.4-45.2) 05/16/17 07:00 MCV 90.8 fl (80-96) 05/16/17 07:00 MCH 29.4 pg (25.7-33.7) 05/16/17 07:00 MCHC 32.4 g/dl (32.0-36.0) 05/16/17 07:00 RDW 15.4 % (11.6-15.6) 05/16/17 07:00 Plt Count 189 K/MM3 (134-434) 05/16/17 07:00 MPV 8.6 fl (7.5-11.1) 05/16/17 07:00 Sodium 144 mmol/L (136-145) 05/16/17 07:00 Potassium 4.8 mmol/L (3.5-5.1) 05/16/17 07:00 Chloride 104 mmol/L (98-107) 05/16/17 07:00 Carbon Dioxide 33 mmol/L (21-32) H 05/16/17 07:00 Anion Gap 7 (8-16) L 05/16/17 07:00 BUN 18 mg/dL (7-18) 05/16/17 07:00 Creatinine 0.6 mg/dL (0.55-1.02) 05/16/17 07:00 Creat Clearance w eGFR > 60 (>60) 05/16/17 07:00 Random Glucose 80 mg/dL (74-106) 05/16/17 07:00 Calcium 9.1 mg/dL (8.5-10.1) 05/16/17 07:00 Total Bilirubin 0.3 mg/dL (0.2-1.0) D 05/16/17 07:00 AST 29 U/L (15-37) 05/16/17 07:00 ALT 31 U/L (12-78) 05/16/17 07:00 Alkaline Phosphatase 94 U/L (45-117) 05/16/17 07:00 Total Protein 6.8 g/dl (6.4-8.2) 05/16/17 07:00 Albumin 3.5 g/dl (3.4-5.0) 05/16/17 07:00 Urine Color Ltyellow 05/15/17 22:30 Urine Appearance Clear 05/15/17 22:30 Urine pH 7.0 (5.0-8.0) 05/15/17 22:30 Ur Specific [place] 1.010 (1.001-1.035) 05/15/17 22:30 Urine Protein Negative (NEGATIVE) 05/15/17 22:30 Urine Glucose (UA) Negative (NEGATIVE) 05/15/17 22:30 Urine Ketones Negative (NEGATIVE) 05/15/17 22:30 Urine Blood Negative (NEGATIVE) 05/15/17 22:30 Urine Nitrite Negative (NEGATIVE) 05/15/17 22:30 Urine Bilirubin Negative (<2.0 mg/dL) 05/15/17 22:30 Urine Urobilinogen Negative mg/dL (0.2-1.0) 05/15/17 22:30 Ur Leukocyte Esterase Trace (NEGATIVE) 05/15/17 22:30 Urine WBC (Auto) 1 /hpf (3-5) 05/15/17 22:30 Urine RBC (Auto) None /hpf (0-3) 05/15/17 22:30 Ur Epithelial Cells Rare /HPF (FEW) 05/15/17 22:30 Urine Bacteria Rare /hpf (NONE SEEN) 05/15/17 22:30 Hyaline Casts 10 /lpf 05/15/17 22:30 Urine Mucus Rare 05/15/17 22:30 RPR Titer Nonreactive (NONREACTIVE) 05/16/17 07:00 Assessment: 05/17/17 10:10 WITHDRAWAL SYMPTOM Plan: CONTINUE DETOX
[2017-05-17] MEDS: ESCITALOPRAM OXALATE 20 MG TABLET (FP) PO SCH (10:31)
[2017-05-17] MEDS: NICOTINE 14 MG/24 HOURS TOPICAL PATCH TD SCH (10:31)
[2017-05-17] MEDS: PRENATAL VITAMINS W/ FOLIC ACID TABLET (FP) PO SCH (10:31)
[2017-05-17] MEDS: chlordiazePOXIDE 5 MG CAPSULE PO SCH (22:08)
[2017-05-17] MEDS: THIAMINE HCL 100 MG TABLET (FP) PO SCH (22:09)
[2017-05-18] MEDS ORDERED: METHADONE HCL 40 MG DISPERSABLE TABLET ONE (04:10)
[2017-05-18] MEDS ORDERED: METHADONE HCL 10 MG TABLET ONE (04:11)
[2017-05-18] MEDS: METHADONE 40 MG, METHADONE 30 MG PO SCH (05:19)
[2017-05-18] MEDS: chlordiazePOXIDE 5 MG CAPSULE PO SCH ×3 (05:20→17:51)
[2017-05-18] MEDS: ESCITALOPRAM OXALATE 20 MG TABLET (FP) PO SCH (10:16)
[2017-05-18] MEDS: PRENATAL VITAMINS W/ FOLIC ACID TABLET (FP) PO SCH (10:16)
[2017-05-18] MEDS: NICOTINE 14 MG/24 HOURS TOPICAL PATCH TD SCH (10:16)
--- NOTE | 2017-05-18 15:48 | PN ---
S Progress Note (SOAP) Subjective: Irritable, anxiety, interrupted sleep, generalized muscle aches Objective: 05/18/17 15:47 Vital Signs - 8 hr 05/18/17 05/18/17 10:00 15:09 Temperature 97.9 F 97.9 F Pulse Rate 72 65 Respiratory 16 20 Rate Blood Pressure 96/71 94/57 Laboratory Last Values WBC 3.6 K/mm3 (4.0-10.0) L 05/16/17 07:00 RBC 4.07 M/mm3 (3.60-5.2) 05/16/17 07:00 Hgb 12.0 GM/dL (10.7-15.3) 05/16/17 07:00 Hct 36.9 % (32.4-45.2) 05/16/17 07:00 MCV 90.8 fl (80-96) 05/16/17 07:00 MCH 29.4 pg (25.7-33.7) 05/16/17 07:00 MCHC 32.4 g/dl (32.0-36.0) 05/16/17 07:00 RDW 15.4 % (11.6-15.6) 05/16/17 07:00 Plt Count 189 K/MM3 (134-434) 05/16/17 07:00 MPV 8.6 fl (7.5-11.1) 05/16/17 07:00 Sodium 144 mmol/L (136-145) 05/16/17 07:00 Potassium 4.8 mmol/L (3.5-5.1) 05/16/17 07:00 Chloride 104 mmol/L (98-107) 05/16/17 07:00 Carbon Dioxide 33 mmol/L (21-32) H 05/16/17 07:00 Anion Gap 7 (8-16) L 05/16/17 07:00 BUN 18 mg/dL (7-18) 05/16/17 07:00 Creatinine 0.6 mg/dL (0.55-1.02) 05/16/17 07:00 Creat Clearance w eGFR > 60 (>60) 05/16/17 07:00 Random Glucose 80 mg/dL (74-106) 05/16/17 07:00 Calcium 9.1 mg/dL (8.5-10.1) 05/16/17 07:00 Total Bilirubin 0.3 mg/dL (0.2-1.0) D 05/16/17 07:00 AST 29 U/L (15-37) 05/16/17 07:00 ALT 31 U/L (12-78) 05/16/17 07:00 Alkaline Phosphatase 94 U/L (45-117) 05/16/17 07:00 Total Protein 6.8 g/dl (6.4-8.2) 05/16/17 07:00 Albumin 3.5 g/dl (3.4-5.0) 05/16/17 07:00 Urine Color Ltyellow 05/15/17 22:30 Urine Appearance Clear 05/15/17 22:30 Urine pH 7.0 (5.0-8.0) 05/15/17 22:30 Ur Specific [place] 1.010 (1.001-1.035) 05/15/17 22:30 Urine Protein Negative (NEGATIVE) 05/15/17 22:30 Urine Glucose (UA) Negative (NEGATIVE) 05/15/17 22:30 Urine Ketones Negative (NEGATIVE) 05/15/17 22:30 Urine Blood Negative (NEGATIVE) 05/15/17 22:30 Urine Nitrite Negative (NEGATIVE) 05/15/17 22:30 Urine Bilirubin Negative (<2.0 mg/dL) 05/15/17 22:30 Urine Urobilinogen Negative mg/dL (0.2-1.0) 05/15/17 22:30 Ur Leukocyte Esterase Trace (NEGATIVE) 05/15/17 22:30 Urine WBC (Auto) 1 /hpf (3-5) 05/15/17 22:30 Urine RBC (Auto) None /hpf (0-3) 05/15/17 22:30 Ur Epithelial Cells Rare /HPF (FEW) 05/15/17 22:30 Urine Bacteria Rare /hpf (NONE SEEN) 05/15/17 22:30 Hyaline Casts 10 /lpf 05/15/17 22:30 Urine Mucus Rare 05/15/17 22:30 RPR Titer Nonreactive (NONREACTIVE) 05/16/17 07:00 Labs noted Assessment: 05/18/17 15:47 Withdrawal sx Plan: Continue detox
[2017-05-18] MEDS: P-EPHED 60MG/TRIPROLIDI 2.5MG TABLET PO PRN (17:51)
[2017-05-18] MEDS: THIAMINE HCL 100 MG TABLET (FP) PO SCH (22:15)
[2017-05-18] MEDS: chlordiazePOXIDE HCL 10 MG CAPSULE PO SCH (22:15)
[2017-05-19] MEDS: chlordiazePOXIDE HCL 10 MG CAPSULE PO SCH (05:47)
[2017-05-19] MEDS ORDERED: METHADONE HCL 10 MG TABLET ONE (05:48)
[2017-05-19] MEDS ORDERED: METHADONE HCL 40 MG DISPERSABLE TABLET ONE (05:48)
[2017-05-19] MEDS: METHADONE 40 MG, METHADONE 30 MG PO SCH (05:48)
--- NOTE | 2017-05-19 09:05 | DS ---
[facility] Detox Discharge Summary Admission Date: 05/15/17 Discharge Date: 05/19/17 - History Present History: Alcohol Dependence Additional Comments: 57 years old female admitted for alcohol withdrawal completed detox regimen tolerated well denies alcohol withdrawal sx patient agrees to go to care counseling program patient is alert oriented x 3 no acute distress - Physical Exam Results Vital Signs: Vital Signs Temperature 97.7 F 05/19/17 06:00 Pulse Rate 74 05/19/17 06:00 Respiratory Rate 18 05/19/17 06:00 Blood Pressure 127/77 05/19/17 06:00 O2 Sat by Pulse Oximetry (%) Pertinent Admission Physical Exam Findings: withdrawal sx Vital Signs Temperature 97.7 F 05/19/17 06:00 Pulse Rate 74 05/19/17 06:00 Respiratory Rate 18 05/19/17 06:00 Blood Pressure 127/77 05/19/17 06:00 O2 Sat by Pulse Oximetry (%) Laboratory Last Values WBC 3.6 K/mm3 (4.0-10.0) L 05/16/17 07:00 RBC 4.07 M/mm3 (3.60-5.2) 05/16/17 07:00 Hgb 12.0 GM/dL (10.7-15.3) 05/16/17 07:00 Hct 36.9 % (32.4-45.2) 05/16/17 07:00 MCV 90.8 fl (80-96) 05/16/17 07:00 MCH 29.4 pg (25.7-33.7) 05/16/17 07:00 MCHC 32.4 g/dl (32.0-36.0) 05/16/17 07:00 RDW 15.4 % (11.6-15.6) 05/16/17 07:00 Plt Count 189 K/MM3 (134-434) 05/16/17 07:00 MPV 8.6 fl (7.5-11.1) 05/16/17 07:00 Sodium 144 mmol/L (136-145) 05/16/17 07:00 Potassium 4.8 mmol/L (3.5-5.1) 05/16/17 07:00 Chloride 104 mmol/L (98-107) 05/16/17 07:00 Carbon Dioxide 33 mmol/L (21-32) H 05/16/17 07:00 Anion Gap 7 (8-16) L 05/16/17 07:00 BUN 18 mg/dL (7-18) 05/16/17 07:00 Creatinine 0.6 mg/dL (0.55-1.02) 05/16/17 07:00 Creat Clearance w eGFR > 60 (>60) 05/16/17 07:00 Random Glucose 80 mg/dL (74-106) 05/16/17 07:00 Calcium 9.1 mg/dL (8.5-10.1) 05/16/17 07:00 Total Bilirubin 0.3 mg/dL (0.2-1.0) D 05/16/17 07:00 AST 29 U/L (15-37) 05/16/17 07:00 ALT 31 U/L (12-78) 05/16/17 07:00 Alkaline Phosphatase 94 U/L (45-117) 05/16/17 07:00 Total Protein 6.8 g/dl (6.4-8.2) 05/16/17 07:00 Albumin 3.5 g/dl (3.4-5.0) 05/16/17 07:00 Urine Color Ltyellow 05/15/17 22:30 Urine Appearance Clear 05/15/17 22:30 Urine pH 7.0 (5.0-8.0) 05/15/17 22:30 Ur Specific [place] 1.010 (1.001-1.035) 05/15/17 22:30 Urine Protein Negative (NEGATIVE) 05/15/17 22:30 Urine Glucose (UA) Negative (NEGATIVE) 05/15/17 22:30 Urine Ketones Negative (NEGATIVE) 05/15/17 22:30 Urine Blood Negative (NEGATIVE) 05/15/17 22:30 Urine Nitrite Negative (NEGATIVE) 05/15/17 22:30 Urine Bilirubin Negative (<2.0 mg/dL) 05/15/17 22:30 Urine Urobilinogen Negative mg/dL (0.2-1.0) 05/15/17 22:30 Ur Leukocyte Esterase Trace (NEGATIVE) 05/15/17 22:30 Urine WBC (Auto) 1 /hpf (3-5) 05/15/17 22:30 Urine RBC (Auto) None /hpf (0-3) 05/15/17 22:30 Ur Epithelial Cells Rare /HPF (FEW) 05/15/17 22:30 Urine Bacteria Rare /hpf (NONE SEEN) 05/15/17 22:30 Hyaline Casts 10 /lpf 05/15/17 22:30 Urine Mucus Rare 05/15/17 22:30 RPR Titer Nonreactive (NONREACTIVE) 05/16/17 07:00 lab noted - Treatment Hospital Course: Detox Protocol Followed, Detoxed Safely, Responded well, Discharged Condition Good, Rehab Referral Accepted Patient has Accepted a Rehab Referral to: care counseling intensive out patient program - Medication Discharge Medications: Ambulatory Orders Amitriptyline HCl [Elavil -] 25 mg PO HS PRN 02/20/17 traZODone HCL [Desyrel -] 50 mg PO HS 02/20/17 Escitalopram Oxalate [Lexapro -] 20 mg PO DAILY #30 tablet 05/16/17 Methadone [Dolophine -] 70 mg PO DAILY 05/19/17 - Diagnosis (1) Nicotine dependence Current Visit: Yes Status: Acute Qualifiers: Nicotine product type: cigarettes Substance use status: in withdrawal Qualified Code(s): F17.213 - Nicotine dependence, cigarettes, with withdrawal (2) Alcohol dependence with uncomplicated withdrawal Current Visit: Yes Status: Acute (3) Bipolar disorder Current Visit: Yes Status: Suspected Qualifiers: Active/Remission status: in partial remission Most recent bipolar episode type: mixed Qualified Code(s): F31.77 - Bipolar disorder, in partial remission , most recent episode mixed (4) HIV (human immunodeficiency virus infection) Current Visit: Yes Status: Chronic (5) Weight loss Current Visit: Yes Status: Acute - AMA Did Patient Leave Against Medical Advice: No
[2017-05-19 09:56] VITALS: BP 96/62; PULSE 76; TEMP 98.8
== END 2017-05-19 08:55 | disposition home or self-care (01) | DRG 773 ==
LOC: YASAS 14:20 → Y6N 18:47
PROVIDERS: ADMIT Internal Medicine; ATTEND Internal Medicine
PROC: HZ2ZZZZ Detoxification Services for Substance Abuse Treatment (ICD-10-PCS; principal; 2017-05-15)
DX: F11.20 Opioid dependence, uncomplicated (principal); F10.230 Alcohol dependence with withdrawal, uncomplicated; F17.213 Nicotine dependence, cigarettes, with withdrawal; F31.77 Bipolar disorder, in partial remission, most recent episode mixed; Z21 Asymptomatic human immunodeficiency virus [HIV] infection status; B18.2 Chronic viral hepatitis C; D50.8 Other iron deficiency anemias; R63.4 Abnormal weight loss; Z68.21 Body mass index [BMI] 21.0-21.9, adult
CPT/HCPCS: 36415; 80053; 81003; 81015; 85027; 86593; 93005; 93010

== ENCOUNTER 2017-06-29 10:05 | Inpatient (IN) | payer OTHER ==
[2017-06-29 11:12] VITALS: BMI 21.5
--- NOTE | 2017-06-29 17:28 | HP ---
CIWA Score - CIWA Score Nausea/Vomitin Muscle Tremors: 6 Anxiety: 4-Mod. Anxious/Guarded Agitation: 4-Moderately Restless Paroxysmal Sweats: 3 Orientation: 0-Oriented Tacttile Disturbances: 0-None Auditory Disturbances: 0-None Visual Disturbances: 0-None Headache: 1-Very Mild CIWA-Ar Total Score: 21 Admission ROS S - HPI Chief Complaint: "I can't do this no more Allergies/Adverse Reactions: Allergies Allergy/AdvReac Type Severity Reaction Status Date / Time No Known Allergies Allergy Verified 02/20/17 14:02 History of Present Illness: 57 y/o female with a very long history of alcohol addiction presents requesting detox from Alcohol. Pt not a good historian as her mood is labile and she keeps crying, getting agitated and raising her voice when asked question. HAs been to detox previously at [facility] Per Staff, pt keeps going to [employer] to go drink more. DRAGAN increased from .204 to ).322. Pt tremulous and has unsteady gait. Pt is on methadone therapy - 70mg daily (pending verification), states she was medicated today and presents with her dose from the program for tomorrow Denies SI/HI Denies med hx nor taking any medication although hx of HIV documented in system. Hx of anxiety but states she is not compliant of meds Exam Limitations: Intoxication - Ebola screening Have you traveled outside of the country in the last 21 days: No (N) Have you had contact with anyone from an Ebola affected area: No Have you been sick,other than usual withdrawal symptoms: No Do you have a fever: No - Review of Systems Constitutional: Loss of Appetite, Unintentional Wgt. Loss EENT: reports: Nose Congestion Respiratory: reports: No Symptoms reported Cardiac: reports: No Symptoms Reported GI: reports: Nausea : reports: No Symptoms Reported Musculoskeletal: reports: Joint Pain (Chronic R elbow pain) Neuro: reports: Unsteady Gait Endocrine: reports: No Symptoms Reported Hematology: reports: Anemia Psychiatric: reports: Agitated, Anxious, Depressed (crying at intake, denies SI) Other Systems: Reviewed and Negative Patient History - Patient Medical History Hx Anemia: Yes (AILEEN ) Hx Asthma: No Hx Chronic Obstructive Pulmonary Disease (COPD): No Hx Cancer: No Hx Cardiac Disorders: No Hx Congestive Heart Failure: No Hx Hypertension: No Hx Hypercholesterolemia: No Hx Pacemaker: No HX Cerebrovascular Accident: No Hx Seizures: No Hx Dementia: No Hx Diabetes: No Hx Gastrointestinal Disorders: No Hx Liver Disease: Yes Hx Genitourinary Disorders: No Hx Sexually Transmitted Disorders: No Hx Renal Disease (ESRD): No Hx Thyroid Disease: No Hx Human Immunodeficiency Virus (HIV): Yes (since 2009) Hx Hepatitis C: Yes Hx Depression: Yes Hx Suicide Attempt: No Hx Bipolar Disorder: No Hx Schizophrenia: No - Patient Surgical History Past Surgical History: No - PPD History Previous Implant?: Yes Documented Results: Negative w/proof Date: 05/17/17 PPD to be Administered?: No - Smoking Cessation Smoking history: Current every day smoker Have you smoked in the past 12 months: Yes Aproximately how many cigarettes per day: 8 Hx Chewing Tobacco Use: No Initiated information on smoking cessation: Yes 'Breaking Loose' booklet given: 06/29/17 - Substance & Tx. History Hx Alcohol Use: Yes Substance Use Type: Alcohol - Substances Abused Alcohol Route: Oral Frequency: Daily Amount used: 1 - 2 pints Age of first use: 12 Date of Last Use: 06/29/17 Family Disease History - Family Disease History Family Disease History: Other: Father (alcohol,), Mother ( hiv) Admission Physical Exam BHS - Vital Signs Vital Signs: Vital Signs - 24 hr 06/29/17 11:10 Temperature 96.8 F L Pulse Rate 76 Respiratory 18 Rate Blood Pressure 136/102 - Physical General Appearance: Yes: Disheveled, Alcohol on Breath, Intoxicated, Irritable HEENTM: Yes: Within Normal Limits Respiratory: Yes: Lungs Clear, Normal Breath Sounds, No Accessory Muscle Use Neck: Yes: No masses,lesions,Nodules, Trachea in good position Breast: Yes: Breast Exam Deferred Cardiology: Yes: Regular Rate Abdominal: Yes: Non Tender, Distended Genitourinary: Yes: Within Normal Limits Back: Yes: Normal Inspection Musculoskeletal: Yes: full range of Motion, Other (unsteady gait) Extremities: Yes: Normal Capillary Refill, Normal Inspection 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: Yes: Fully Oriented, Alert, Other (agitated) Integumentary: Yes: Mottled Lymphatic: Yes: Within Normal Limits - Diagnostic (1) Alcohol dependence with uncomplicated withdrawal Current Visit: Yes Status: Acute (2) Nicotine dependence Current Visit: Yes Status: Acute Qualifiers: Nicotine product type: cigarettes Substance use status: in withdrawal Qualified Code(s): F17.213 - Nicotine dependence, cigarettes, with withdrawal (3) Drug-induced mood disorder Current Visit: Yes Status: Suspected (4) Methadone maintenance therapy patient Current Visit: No Status: Chronic Cleared for Admission [facility] - Detox or Rehab [facility] Level of Care: Medically Managed Detox Regimen/Protocol: Librium [facility] Breath Alcohol Content Breath Alcohol Content: 0.204 Urine Pregancy Test - Result Urine Test Results: Negative- NO Line Present Urine Drug Screen - Results Drug Screen Negative: No Urine Drug Screen Results: OPI-Opiates, BZO-Benzodiazepines, MTD-Methadone
[2017-06-29] MEDS ORDERED: LOPERAMIDE HCL 2 MG CAPSULE PO PRN (18:11)
[2017-06-29] MEDS ORDERED: ACETAMINOPHEN 325 MG TABLET (FP) PO PRN (18:11)
[2017-06-29] MEDS ORDERED: MAGNESIUM CITRATE 300 ML BOTTLE PO PRN (18:11)
[2017-06-29] MEDS ORDERED: chlordiazePOXIDE HCL 25 MG CAPSULE PO ONE (18:11)
[2017-06-29] MEDS ORDERED: MAGNESIUM HYDROX 2400MG/30ML ORAL SUSPENSION 30 ML CUP PO PRN (18:11)
[2017-06-29] MEDS ORDERED: MAG HYDROX/AL HYDROX/SIMETH 30 ML UNIT-DOSE CUP PO PRN (18:11)
[2017-06-29] MEDS ORDERED: hydrOXYzine PAMOATE 50 MG CAPSULE (FP) PO PRN (18:11)
[2017-06-29] MEDS ORDERED: IBUPROFEN 400 MG TABLET (FP) PO PRN (18:11)
[2017-06-29] MEDS ORDERED: NICOTINE POLACRILEX 2 MG GUM BC PRN (18:11)
[2017-06-29] MEDS ORDERED: guaiFENesin/D-METHORPHAN HB 10 ML UNIT-DOSE CUPS PO PRN (18:11)
[2017-06-29] MEDS ORDERED: P-EPHED 60MG/TRIPROLIDI 2.5MG TABLET PO PRN (18:11)
[2017-06-29] MEDS ORDERED: chlordiazePOXIDE HCL 25 MG CAPSULE PO PRN (18:11)
[2017-06-29] MEDS ORDERED: MENTHOL/PHENOL 1 EACH UD MM PRN (18:11)
--- NOTE | 2017-06-29 18:17 | PN ---
BHS Progress Note Note: 70mg one methadone po one time ordered, to be given from pt's bottle that she brought in. Subsequent doses will be given upon verification on saturday
[2017-06-29] MEDS: NICOTINE 14 MG/24 HOURS TOPICAL PATCH TD SCH (19:26)
[2017-06-29] MEDS ORDERED: MELATONIN 5 MG TABLETS PO PRN (22:00)
[2017-06-29] MEDS: THIAMINE HCL 100 MG TABLET (FP) PO SCH (22:32)
[2017-06-29] MEDS: chlordiazePOXIDE HCL 25 MG CAPSULE PO SCH (22:33)
[2017-06-30] MEDS ORDERED: METHADONE HCL 10 MG TABLET PO ONE (06:00)
[2017-06-30] MEDS: chlordiazePOXIDE HCL 25 MG CAPSULE PO SCH ×4 (06:06→22:44)
[2017-06-30] MEDS: NICOTINE 14 MG/24 HOURS TOPICAL PATCH TD SCH (10:48)
[2017-06-30] MEDS: PRENATAL VITAMINS W/ FOLIC ACID TABLET (FP) PO SCH (10:48)
[2017-06-30 11:05] LABS: URINE APPEARANCE CLEAR; URINE BILIRUBIN NEGATIVE (<2.0 mg/dL); URINE BLOOD NEGATIVE (NEGATIVE); URINE COLOR STRAW; URINE GLUCOSE (UA) NEGATIVE (NEGATIVE); URINE KETONE NEGATIVE (NEGATIVE); URINE LEUK ESTERASE TRACE (NEGATIVE); URINE NITRITE NEGATIVE (NEGATIVE); URINE PROTEIN NEGATIVE (NEGATIVE); URINE UROBILINOGEN NEGATIVE mg/dL (0.2-1.0)
[2017-06-30 11:25] LABS: EPI CELLS FEW /HPF (FEW); URINE BACTERIA RARE /hpf (NONE SEEN)
--- NOTE | 2017-06-30 12:36 | PN ---
S CIWA - CIWA Score Nausea/Vomitin-No Nausea/No Vomiting Muscle Tremors: 3 Anxiety: 3 Agitation: 4-Moderately Restless Paroxysmal Sweats: 3 Orientation: 0-Oriented Tacttile Disturbances: 0-None Auditory Disturbances: 0-None Visual Disturbances: 0-None Headache: 0-None Present CIWA-Ar Total Score: 13 BHS Progress Note (SOAP) Subjective: sweats body aches interrupted sleep agitation Objective: 06/30/17 12:35 Vital Signs Temperature 98.2 F 06/30/17 10:28 Pulse Rate 73 06/30/17 10:30 Respiratory Rate 18 06/30/17 10:30 Blood Pressure 113/76 06/30/17 10:28 O2 Sat by Pulse Oximetry (%) Laboratory Tests 06/30/17 09:20 Urine Color Straw Urine Appearance Clear Urine pH 7.0 Ur Specific [place] 1.006 Urine Protein Negative Urine Glucose (UA) Negative Urine Ketones Negative Urine Blood Negative Urine Nitrite Negative Urine Bilirubin Negative Urine Urobilinogen Negative Ur Leukocyte Esterase Trace Urine WBC (Auto) <1 Urine RBC (Auto) 1 Ur Epithelial Cells Few Urine Bacteria Rare rest of labs pending aaox3 ambulating no acute distress Assessment: 06/30/17 12:36 withdrawal sx Plan: continue detox increase fluids f/u pending labs
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
[2017-06-30] MEDS: THIAMINE HCL 100 MG TABLET (FP) PO SCH (22:44)
[2017-07-01] MEDS: chlordiazePOXIDE HCL 25 MG CAPSULE PO SCH ×3 (05:50→17:32)
[2017-07-01] MEDS ORDERED: METHADONE HCL 40 MG DISPERSABLE TABLET PO SCH ×2 (08:47→10:00)
[2017-07-01] MEDS ORDERED: METHADONE HCL 40 MG DISPERSABLE TABLET ONE (09:08)
[2017-07-01] MEDS ORDERED: METHADONE HCL 10 MG TABLET ONE (09:08)
[2017-07-01] MEDS: METHADONE 40 MG, METHADONE 30 MG PO SCH (09:58)
[2017-07-01] MEDS: NICOTINE 14 MG/24 HOURS TOPICAL PATCH TD SCH (09:59)
[2017-07-01] MEDS: PRENATAL VITAMINS W/ FOLIC ACID TABLET (FP) PO SCH (09:59)
[2017-07-01 10:51] LABS: CHLORIDE 105 mmol/L (98-107); POTASSIUM 4.6 mmol/L (3.5-5.1); SODIUM 138 mmol/L (136-145)
[2017-07-01 10:57] LABS: ALBUMIN 3.6 g/dl (3.4-5.0); ALK PHOS 98 U/L (45-117); ANION GAP 4 (8-16); BILIRUBIN,TOTAL 0.6 mg/dL (0.2-1.0); BLOOD UREA NITROGEN 17 mg/dL (7-18); CALCIUM 9.2 mg/dL (8.5-10.1); CO2 29 mmol/L (21-32); CREATININE 0.6 mg/dL (0.55-1.02); GLUCOSE,RANDOM 87 mg/dL (74-106); SGOT/AST 23 U/L (15-37); SGPT/ALT 29 U/L (12-78)
[2017-07-01 10:58] LABS: BASO % 1.3 % (0-2.0); EOS % 3.6 % (0-4.5); HEMATOCRIT 38.1 % (32.4-45.2); HEMOGLOBIN 12.6 GM/dL (10.7-15.3); MCH 29.3 pg (25.7-33.7); MEAN CELL VOLUME 88.7 fl (80-96); MEAN PLT VOLUME 8.9 fl (7.5-11.1); MONO % 10.9 % (3.8-10.2); NEUT % 43.2 % (42.8-82.8); PLATELET COUNT 217 K/MM3 (134-434); RBC 4.29 M/mm3 (3.60-5.2); RDW 14.5 % (11.6-15.6); WHITE BLOOD COUNT 4.2 K/mm3 (4.0-10.0)
--- NOTE | 2017-07-01 12:05 | PN ---
S CIWA - CIWA Score Nausea/Vomitin-Mild Nausea/No Vomiting Muscle Tremors: 4-Moderate,w/Arms Extend Anxiety: 3 Agitation: 3 Paroxysmal Sweats: 1-Minimal Palms Moist Orientation: 0-Oriented Tacttile Disturbances: 0-None Auditory Disturbances: 0-None Visual Disturbances: 0-None Headache: 0-None Present CIWA-Ar Total Score: 12 BHS Progress Note (SOAP) Subjective: tremor sweat trouble sleep at night anxiety restlessness Objective: 07/01/17 12:04 Vital Signs Temperature 98.1 F 07/01/17 09:49 Pulse Rate 68 07/01/17 09:49 Respiratory Rate 18 07/01/17 09:49 Blood Pressure 96/75 07/01/17 09:49 O2 Sat by Pulse Oximetry (%) Laboratory Last Values WBC 4.2 K/mm3 (4.0-10.0) 07/01/17 07:00 RBC 4.29 M/mm3 (3.60-5.2) 07/01/17 07:00 Hgb 12.6 GM/dL (10.7-15.3) 07/01/17 07:00 Hct 38.1 % (32.4-45.2) 07/01/17 07:00 MCV 88.7 fl (80-96) 07/01/17 07:00 MCH 29.3 pg (25.7-33.7) 07/01/17 07:00 MCHC 33.0 g/dl (32.0-36.0) 07/01/17 07:00 RDW 14.5 % (11.6-15.6) 07/01/17 07:00 Plt Count 217 K/MM3 (134-434) 07/01/17 07:00 MPV 8.9 fl (7.5-11.1) 07/01/17 07:00 Neutrophils % 43.2 % (42.8-82.8) 07/01/17 07:00 Lymphocytes % 41.0 % (8-40) H 07/01/17 07:00 Monocytes % 10.9 % (3.8-10.2) H 07/01/17 07:00 Eosinophils % 3.6 % (0-4.5) 07/01/17 07:00 Basophils % 1.3 % (0-2.0) 07/01/17 07:00 Sodium 138 mmol/L (136-145) 07/01/17 07:00 Potassium 4.6 mmol/L (3.5-5.1) 07/01/17 07:00 Chloride 105 mmol/L (98-107) 07/01/17 07:00 Carbon Dioxide 29 mmol/L (21-32) 07/01/17 07:00 Anion Gap 4 (8-16) L 07/01/17 07:00 BUN 17 mg/dL (7-18) 07/01/17 07:00 Creatinine 0.6 mg/dL (0.55-1.02) 07/01/17 07:00 Creat Clearance w eGFR > 60 (>60) 07/01/17 07:00 Random Glucose 87 mg/dL (74-106) 07/01/17 07:00 Calcium 9.2 mg/dL (8.5-10.1) 07/01/17 07:00 Total Bilirubin 0.6 mg/dL (0.2-1.0) D 07/01/17 07:00 AST 23 U/L (15-37) 07/01/17 07:00 ALT 29 U/L (12-78) 07/01/17 07:00 Alkaline Phosphatase 98 U/L (45-117) 07/01/17 07:00 Total Protein 7.0 g/dl (6.4-8.2) 07/01/17 07:00 Albumin 3.6 g/dl (3.4-5.0) 07/01/17 07:00 Urine Color Straw 06/30/17 09:20 Urine Appearance Clear 06/30/17 09:20 Urine pH 7.0 (5.0-8.0) 06/30/17 09:20 Ur Specific [place] 1.006 (1.001-1.035) 06/30/17 09:20 Urine Protein Negative (NEGATIVE) 06/30/17 09:20 Urine Glucose (UA) Negative (NEGATIVE) 06/30/17 09:20 Urine Ketones Negative (NEGATIVE) 06/30/17 09:20 Urine Blood Negative (NEGATIVE) 06/30/17 09:20 Urine Nitrite Negative (NEGATIVE) 06/30/17 09:20 Urine Bilirubin Negative (<2.0 mg/dL) 06/30/17 09:20 Urine Urobilinogen Negative mg/dL (0.2-1.0) 06/30/17 09:20 Ur Leukocyte Esterase Trace (NEGATIVE) 06/30/17 09:20 Urine WBC (Auto) <1 /hpf (3-5) 06/30/17 09:20 Urine RBC (Auto) 1 /hpf (0-3) 06/30/17 09:20 Ur Epithelial Cells Few /HPF (FEW) 06/30/17 09:20 Urine Bacteria Rare /hpf (NONE SEEN) 06/30/17 09:20 RPR Titer Nonreactive (NONREACTIVE) 07/01/17 07:00 lab noted Assessment: 07/01/17 12:04 withdrawal sx Plan: continue detox
[2017-07-01] MEDS: THIAMINE HCL 100 MG TABLET (FP) PO SCH (22:38)
[2017-07-01] MEDS: chlordiazePOXIDE 5 MG CAPSULE PO SCH (22:38)
--- NOTE | 2017-07-02 00:50 | EKG ---
Test Reason : Blood Pressure : / mmHG Vent. Rate : 071 BPM Atrial Rate : 071 BPM P-R Int : 148 ms QRS Dur : 088 ms QT Int : 406 ms P-R-T Axes : 067 066 052 degrees QTc Int : 441 ms NORMAL SINUS RHYTHM NORMAL ECG WHEN COMPARED WITH ECG OF 15-MAY-2017 19:50, NO SIGNIFICANT CHANGE WAS FOUND Confirmed by JATINDER HERNANDEZ MD ([id number]) on 07/02/2017 12:50:38 AM Referred By: Confirmed By:JATINDER HERNANDEZ MD
[2017-07-02] MEDS ORDERED: METHADONE HCL 10 MG TABLET ONE (05:01)
[2017-07-02] MEDS ORDERED: METHADONE HCL 40 MG DISPERSABLE TABLET ONE (05:01)
[2017-07-02] MEDS: METHADONE 40 MG, METHADONE 30 MG PO SCH (06:06)
[2017-07-02] MEDS: chlordiazePOXIDE 5 MG CAPSULE PO SCH ×2 (06:06→10:41)
[2017-07-02] MEDS ORDERED: METHADONE HCL 40 MG DISPERSABLE TABLET PO SCH (08:38)
[2017-07-02 09:26] VITALS: BP 102/64; PULSE 75; TEMP 97.9
--- NOTE | 2017-07-02 09:51 | PN ---
[facility] Progress Note (SOAP) Subjective: feeling better no tremor less sweat social with peers in day room Objective: 07/02/17 09:49 Vital Signs Temperature 97.9 F 07/02/17 09:25 Pulse Rate 75 07/02/17 09:25 Respiratory Rate 20 07/02/17 09:25 Blood Pressure 102/64 07/02/17 09:25 O2 Sat by Pulse Oximetry (%) Laboratory Last Values WBC 4.2 K/mm3 (4.0-10.0) 07/01/17 07:00 RBC 4.29 M/mm3 (3.60-5.2) 07/01/17 07:00 Hgb 12.6 GM/dL (10.7-15.3) 07/01/17 07:00 Hct 38.1 % (32.4-45.2) 07/01/17 07:00 MCV 88.7 fl (80-96) 07/01/17 07:00 MCH 29.3 pg (25.7-33.7) 07/01/17 07:00 MCHC 33.0 g/dl (32.0-36.0) 07/01/17 07:00 RDW 14.5 % (11.6-15.6) 07/01/17 07:00 Plt Count 217 K/MM3 (134-434) 07/01/17 07:00 MPV 8.9 fl (7.5-11.1) 07/01/17 07:00 Neutrophils % 43.2 % (42.8-82.8) 07/01/17 07:00 Lymphocytes % 41.0 % (8-40) H 07/01/17 07:00 Monocytes % 10.9 % (3.8-10.2) H 07/01/17 07:00 Eosinophils % 3.6 % (0-4.5) 07/01/17 07:00 Basophils % 1.3 % (0-2.0) 07/01/17 07:00 Sodium 138 mmol/L (136-145) 07/01/17 07:00 Potassium 4.6 mmol/L (3.5-5.1) 07/01/17 07:00 Chloride 105 mmol/L (98-107) 07/01/17 07:00 Carbon Dioxide 29 mmol/L (21-32) 07/01/17 07:00 Anion Gap 4 (8-16) L 07/01/17 07:00 BUN 17 mg/dL (7-18) 07/01/17 07:00 Creatinine 0.6 mg/dL (0.55-1.02) 07/01/17 07:00 Creat Clearance w eGFR > 60 (>60) 07/01/17 07:00 Random Glucose 87 mg/dL (74-106) 07/01/17 07:00 Calcium 9.2 mg/dL (8.5-10.1) 07/01/17 07:00 Total Bilirubin 0.6 mg/dL (0.2-1.0) D 07/01/17 07:00 AST 23 U/L (15-37) 07/01/17 07:00 ALT 29 U/L (12-78) 07/01/17 07:00 Alkaline Phosphatase 98 U/L (45-117) 07/01/17 07:00 Total Protein 7.0 g/dl (6.4-8.2) 07/01/17 07:00 Albumin 3.6 g/dl (3.4-5.0) 07/01/17 07:00 Urine Color Straw 06/30/17 09:20 Urine Appearance Clear 06/30/17 09:20 Urine pH 7.0 (5.0-8.0) 06/30/17 09:20 Ur Specific [place] 1.006 (1.001-1.035) 06/30/17 09:20 Urine Protein Negative (NEGATIVE) 06/30/17 09:20 Urine Glucose (UA) Negative (NEGATIVE) 06/30/17 09:20 Urine Ketones Negative (NEGATIVE) 06/30/17 09:20 Urine Blood Negative (NEGATIVE) 06/30/17 09:20 Urine Nitrite Negative (NEGATIVE) 06/30/17 09:20 Urine Bilirubin Negative (<2.0 mg/dL) 06/30/17 09:20 Urine Urobilinogen Negative mg/dL (0.2-1.0) 06/30/17 09:20 Ur Leukocyte Esterase Trace (NEGATIVE) 06/30/17 09:20 Urine WBC (Auto) <1 /hpf (3-5) 06/30/17 09:20 Urine RBC (Auto) 1 /hpf (0-3) 06/30/17 09:20 Ur Epithelial Cells Few /HPF (FEW) 06/30/17 09:20 Urine Bacteria Rare /hpf (NONE SEEN) 06/30/17 09:20 RPR Titer Nonreactive (NONREACTIVE) 07/01/17 07:00 lab noted Assessment: 07/02/17 09:50 mild withdrawal sx Plan: medically supervised detox
[2017-07-02] MEDS: PRENATAL VITAMINS W/ FOLIC ACID TABLET (FP) PO SCH (10:41)
[2017-07-02] MEDS: NICOTINE 14 MG/24 HOURS TOPICAL PATCH TD SCH (10:42)
--- NOTE | 2017-07-02 13:18 | DS ---
[facility] Detox Discharge Summary Admission Date: 06/29/17 Discharge Date: 07/02/17 - History Present History: Alcohol Dependence Additional Comments: 57 years old female admitted 06/29/17 for alcohol withdrawal sx denies alcohol withdrawal sx after lunch wants to begin [facility] patient determines to maintain sober through recovery process - Physical Exam Results Vital Signs: Vital Signs Temperature 97.9 F 07/02/17 09:25 Pulse Rate 75 07/02/17 09:25 Respiratory Rate 20 07/02/17 09:25 Blood Pressure 102/64 07/02/17 09:25 O2 Sat by Pulse Oximetry (%) Pertinent Admission Physical Exam Findings: withdrawal sx Vital Signs Temperature 97.9 F 07/02/17 09:25 Pulse Rate 75 07/02/17 09:25 Respiratory Rate 20 07/02/17 09:25 Blood Pressure 102/64 07/02/17 09:25 O2 Sat by Pulse Oximetry (%) Laboratory Last Values WBC 4.2 K/mm3 (4.0-10.0) 07/01/17 07:00 RBC 4.29 M/mm3 (3.60-5.2) 07/01/17 07:00 Hgb 12.6 GM/dL (10.7-15.3) 07/01/17 07:00 Hct 38.1 % (32.4-45.2) 07/01/17 07:00 MCV 88.7 fl (80-96) 07/01/17 07:00 MCH 29.3 pg (25.7-33.7) 07/01/17 07:00 MCHC 33.0 g/dl (32.0-36.0) 07/01/17 07:00 RDW 14.5 % (11.6-15.6) 07/01/17 07:00 Plt Count 217 K/MM3 (134-434) 07/01/17 07:00 MPV 8.9 fl (7.5-11.1) 07/01/17 07:00 Neutrophils % 43.2 % (42.8-82.8) 07/01/17 07:00 Lymphocytes % 41.0 % (8-40) H 07/01/17 07:00 Monocytes % 10.9 % (3.8-10.2) H 07/01/17 07:00 Eosinophils % 3.6 % (0-4.5) 07/01/17 07:00 Basophils % 1.3 % (0-2.0) 07/01/17 07:00 Sodium 138 mmol/L (136-145) 07/01/17 07:00 Potassium 4.6 mmol/L (3.5-5.1) 07/01/17 07:00 Chloride 105 mmol/L (98-107) 07/01/17 07:00 Carbon Dioxide 29 mmol/L (21-32) 07/01/17 07:00 Anion Gap 4 (8-16) L 07/01/17 07:00 BUN 17 mg/dL (7-18) 07/01/17 07:00 Creatinine 0.6 mg/dL (0.55-1.02) 07/01/17 07:00 Creat Clearance w eGFR > 60 (>60) 07/01/17 07:00 Random Glucose 87 mg/dL (74-106) 07/01/17 07:00 Calcium 9.2 mg/dL (8.5-10.1) 07/01/17 07:00 Total Bilirubin 0.6 mg/dL (0.2-1.0) D 07/01/17 07:00 AST 23 U/L (15-37) 07/01/17 07:00 ALT 29 U/L (12-78) 07/01/17 07:00 Alkaline Phosphatase 98 U/L (45-117) 07/01/17 07:00 Total Protein 7.0 g/dl (6.4-8.2) 07/01/17 07:00 Albumin 3.6 g/dl (3.4-5.0) 07/01/17 07:00 Urine Color Straw 06/30/17 09:20 Urine Appearance Clear 06/30/17 09:20 Urine pH 7.0 (5.0-8.0) 06/30/17 09:20 Ur Specific [place] 1.006 (1.001-1.035) 06/30/17 09:20 Urine Protein Negative (NEGATIVE) 06/30/17 09:20 Urine Glucose (UA) Negative (NEGATIVE) 06/30/17 09:20 Urine Ketones Negative (NEGATIVE) 06/30/17 09:20 Urine Blood Negative (NEGATIVE) 06/30/17 09:20 Urine Nitrite Negative (NEGATIVE) 06/30/17 09:20 Urine Bilirubin Negative (<2.0 mg/dL) 06/30/17 09:20 Urine Urobilinogen Negative mg/dL (0.2-1.0) 06/30/17 09:20 Ur Leukocyte Esterase Trace (NEGATIVE) 06/30/17 09:20 Urine WBC (Auto) <1 /hpf (3-5) 06/30/17 09:20 Urine RBC (Auto) 1 /hpf (0-3) 06/30/17 09:20 Ur Epithelial Cells Few /HPF (FEW) 06/30/17 09:20 Urine Bacteria Rare /hpf (NONE SEEN) 06/30/17 09:20 RPR Titer Nonreactive (NONREACTIVE) 07/01/17 07:00 lab noted - Treatment Hospital Course: Detox Protocol Followed, Detoxed Safely, Responded well, Discharged Condition Good, Rehab Referral Accepted Patient has Accepted a Rehab Referral to: [facility] - Medication Discharge Medications: Ambulatory Orders Amitriptyline HCl [Elavil -] 25 mg PO HS PRN 02/20/17 Escitalopram Oxalate [Lexapro -] 20 mg PO DAILY #30 tablet 05/16/17 Methadone [Dolophine -] 70 mg PO DAILY 05/19/17 - Diagnosis (1) Alcohol dependence with uncomplicated withdrawal Current Visit: Yes Status: Acute (2) HIV (human immunodeficiency virus infection) Current Visit: Yes Status: Chronic (3) 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
[2017-07-02] MEDS ORDERED: chlordiazePOXIDE HCL 10 MG CAPSULE PO SCH (23:00)
== END 2017-07-02 13:30 | disposition home or self-care (01) | DRG 773 ==
LOC: YASAS 10:05 → Y6N 18:26
PROVIDERS: ADMIT Surgery; ATTEND Surgery
PROC: HZ2ZZZZ Detoxification Services for Substance Abuse Treatment (ICD-10-PCS; principal; 2017-06-29)
DX: F11.20 Opioid dependence, uncomplicated (principal); F10.230 Alcohol dependence with withdrawal, uncomplicated; F17.213 Nicotine dependence, cigarettes, with withdrawal; F19.24 Other psychoactive substance dependence with psychoactive substance-induced mood disorder; F32.9 Major depressive disorder, single episode, unspecified; F51.05 Insomnia due to other mental disorder; Z21 Asymptomatic human immunodeficiency virus [HIV] infection status; B18.2 Chronic viral hepatitis C
CPT/HCPCS: 36415; 80053; 81003; 81015; 85025; 86593; 93005; 93010

== ENCOUNTER 2017-08-21 11:55 | Inpatient (IN) | payer OTHER ==
[2017-08-21 12:56] VITALS: BMI 21.5
--- NOTE | 2017-08-21 13:06 | HP ---
CIWA Score - CIWA Score Nausea/Vomitin-Mild Nausea/No Vomiting Muscle Tremors: 2 Anxiety: 4-Mod. Anxious/Guarded Agitation: 4-Moderately Restless Paroxysmal Sweats: 1-Minimal Palms Moist Orientation: 2-Disoriented Date<2 days Tacttile Disturbances: 2-Mild Itch/Numbness/Burn Auditory Disturbances: 0-None Visual Disturbances: 0-None Headache: 0-None Present CIWA-Ar Total Score: 16 Admission ROS S - HPI Chief Complaint: alcohol withdrawal sx Allergies/Adverse Reactions: Allergies Allergy/AdvReac Type Severity Reaction Status Date / Time No Known Allergies Allergy Verified 08/21/17 13:09 History of Present Illness: 57 years old female with long history of alcohol nicotine dependence has hiv since 2001 no ART since the diagnosis weight loss gerd and bipolar methadone maintenance 70 mg po daily is admitted to detox Exam Limitations: No Limitations - Ebola screening Have you traveled outside of the country in the last 21 days: No (N) Have you had contact with anyone from an Ebola affected area: No Have you been sick,other than usual withdrawal symptoms: No Do you have a fever: No - Review of Systems Constitutional: Loss of Appetite, Changes in sleep, Unintentional Wgt. Loss, Unexplained wgt Loss EENT: reports: Blurred Vision (need eye glasses) Respiratory: reports: SOB with Exertion Cardiac: reports: No Symptoms Reported GI: reports: Nausea, Poor Appetite, Poor Fluid Intake, Indigestion, Abdominal cramping : reports: No Symptoms Reported Musculoskeletal: reports: No Symptoms Reported Integumentary: reports: No Symptoms Reported Neuro: reports: Tremors Endocrine: reports: No Symptoms Reported Hematology: reports: No Symptoms Reported Psychiatric: reports: Judgement Intact, Orientated x3, Anxious, Depressed Other Systems: Reviewed and Negative Patient History - Patient Medical History Hx Anemia: Yes (AILEEN ) Hx Asthma: No Hx Chronic Obstructive Pulmonary Disease (COPD): No Hx Cancer: No Hx Cardiac Disorders: No Hx Congestive Heart Failure: No Hx Hypertension: No Hx Hypercholesterolemia: No Hx Pacemaker: No HX Cerebrovascular Accident: No Hx Seizures: No Hx Dementia: No Hx Diabetes: No Hx Gastrointestinal Disorders: No Hx Liver Disease: Yes Hx Genitourinary Disorders: No Hx Sexually Transmitted Disorders: No Hx Renal Disease (ESRD): No Hx Thyroid Disease: No Hx Human Immunodeficiency Virus (HIV): Yes (since 2009) Hx Hepatitis C: No (negative at methadone maintenance program) Hx Depression: No Hx Suicide Attempt: No Hx Bipolar Disorder: Yes Hx Schizophrenia: No - Patient Surgical History Past Surgical History: No - PPD History Previous Implant?: Yes Documented Results: Negative w/proof Implanted On Prior [facility] Admission?: Yes Date: 05/17/17 Results: 0 mm PPD to be Administered?: No - Reproductive History Patient is a Female of Child Bearing Age (11 -55 yrs old): No Patient : No - Smoking Cessation Smoking history: Current every day smoker Have you smoked in the past 12 months: Yes Aproximately how many cigarettes per day: 8 Cigars Per Day: 0 Hx Chewing Tobacco Use: No Initiated information on smoking cessation: Yes 'Breaking Loose' booklet given: 08/21/17 - Substance & Tx. History Hx Alcohol Use: Yes Hx Substance Use: Yes Substance Use Type: Alcohol, Heroin, Opiates Hx Substance Use Treatment: Yes (06/2017 [facility] Family Disease History - Family Disease History Family Disease History: Other: Father (alcohol,), Mother ( hiv) , Sister (hiv ) Admission Physical Exam S - Vital Signs Vital Signs: Vital Signs - 24 hr 08/21/17 12:52 Temperature 97.2 F L Pulse Rate 79 Respiratory 16 Rate Blood Pressure 116/76 - Physical General Appearance: Yes: Appropriately Dressed, Mild Distress, Alcohol on Breath , Tremorous, Irritable, Sweating, Anxious HEENTM: Yes: Hearing grossly Normal, Normocephalic, Normal Voice Respiratory: Yes: Chest Non-Tender, No Respiratory Distress, No Accessory Muscle Use, Hyperresonant, Inspiration Neck: Yes: Supple, Trachea in good position Breast: Yes: Breasts Symetrical, No Discharge Cardiology: Yes: Regular Rhythm, Regular Rate, S1, S2 Abdominal: Yes: Non Tender, Flat, Increased Bowel Sounds Genitourinary: Yes: Within Normal Limits Back: Yes: Normal Inspection Musculoskeletal: Yes: full range of Motion, Gait Steady, Back pain (chronic), Muscle Pain (chronic right wrist) Extremities: Yes: Normal Inspection, Normal Range of Motion, Non-Tender, Tremors 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: Yes: Fully Oriented, Alert, Motor Strength 5/5, Normal Response, Depressed Affect Integumentary: Yes: Warm Lymphatic: Yes: Within Normal Limits - Diagnostic (1) Alcohol dependence with uncomplicated withdrawal Current Visit: Yes Status: Acute (2) Nicotine dependence Current Visit: Yes Status: Acute Qualifiers: Nicotine product type: cigarettes Substance use status: in withdrawal Qualified Code(s): F17.213 - Nicotine dependence, cigarettes, with withdrawal (3) Weight loss Current Visit: Yes Status: Acute (4) HIV (human immunodeficiency virus infection) Current Visit: Yes Status: Chronic Comment: no medication (5) Methadone maintenance therapy patient Current Visit: Yes Status: Chronic Comment: 70 mg daily (6) Bipolar disorder Current Visit: Yes Status: Suspected Qualifiers: Active/Remission status: in partial remission Most recent bipolar episode type: mixed Qualified Code(s): F31.77 - Bipolar disorder, in partial remission , most recent episode mixed Comment: Self reports. Cleared for Admission S - Detox or Rehab [facility] Level of Care: Medically Managed Detox Regimen/Protocol: Librium [facility] Breath Alcohol Content Breath Alcohol Content: 0.294 Urine Pregancy Test - Result Urine Test Results: Negative- NO Line Present Urine Drug Screen - Control Is Test Valid: Yes - Results Drug Screen Negative: No Urine Drug Screen Results: OPI-Opiates, BZO-Benzodiazepines, MTD-Methadone
[2017-08-21] MEDS ORDERED: guaiFENesin/D-METHORPHAN HB 10 ML UNIT-DOSE CUPS PO PRN (13:15)
[2017-08-21] MEDS ORDERED: LOPERAMIDE HCL 2 MG CAPSULE PO PRN (13:15)
[2017-08-21] MEDS ORDERED: MAGNESIUM CITRATE 300 ML BOTTLE PO PRN (13:15)
[2017-08-21] MEDS ORDERED: IBUPROFEN 400 MG TABLET (FP) PO PRN (13:15)
[2017-08-21] MEDS ORDERED: MAGNESIUM HYDROX 2400MG/30ML ORAL SUSPENSION 30 ML CUP PO PRN (13:15)
[2017-08-21] MEDS ORDERED: ACETAMINOPHEN 325 MG TABLET (FP) PO PRN (13:15)
[2017-08-21] MEDS ORDERED: MAG HYDROX/AL HYDROX/SIMETH 30 ML UNIT-DOSE CUP PO PRN (13:15)
[2017-08-21] MEDS ORDERED: MENTHOL/PHENOL 1 EACH UD MM PRN (13:15)
[2017-08-21] MEDS ORDERED: chlordiazePOXIDE HCL 25 MG CAPSULE PO PRN (13:15)
[2017-08-21] MEDS ORDERED: P-EPHED 60MG/TRIPROLIDI 2.5MG TABLET PO PRN (13:15)
[2017-08-21] MEDS ORDERED: NICOTINE POLACRILEX 2 MG GUM BUC PRN (13:18)
[2017-08-21] MEDS ORDERED: ALBUTEROL SO4 8 GM HFA INHALER IH PRN (13:18)
[2017-08-21] MEDS: RANITIDINE HCL 150 MG TABLET (FP) PO SCH ×2 (15:09→22:23)
[2017-08-21] MEDS: NICOTINE 14 MG/24 HOURS TOPICAL PATCH TD SCH (15:12)
[2017-08-21] MEDS: guaiFENesin 600 MG TABLET.ER (FP) PO SCH ×2 (15:36→22:23)
[2017-08-21] MEDS: chlordiazePOXIDE HCL 25 MG CAPSULE PO SCH ×2 (16:56→22:23)
[2017-08-21] MEDS ORDERED: MELATONIN 5 MG TABLETS PO PRN (22:00)
[2017-08-21] MEDS: THIAMINE HCL 100 MG TABLET (FP) PO SCH (22:23)
[2017-08-22] MEDS: chlordiazePOXIDE HCL 25 MG CAPSULE PO SCH ×4 (06:27→22:15)
--- NOTE | 2017-08-22 07:34 | CONSULT ---
[facility] Psychiatric Consult - Data Date of interview: 08/22/17 Admission source: [facility] Identifying data: This is 57 years old female, single mother of two, living with family, on SSI, with history of Bipolar nDisorder, with no psychiatric hospitalization history, with long history of alcohol nicotine dependence, reporting withdrawal symptoms and seeking for detox. Substance Abuse History: - Smoking Cessation. Smoking history: Current every day smoker. Have you smoked in the past 12 months: Yes. Aproximately how many cigarettes per day: 8. Cigars Per Day: 0. Hx Chewing Tobacco Use: No. Initiated information on smoking cessation: Yes. 'Breaking Loose' booklet given : 08/21/17. - Substance & Tx. History. Hx Alcohol Use: Yes. Hx Substance Use : Yes. Substance Use Type: Alcohol, Heroin, Opiates. Hx Substance Use Treatment: Yes (06/2017 [facility] Medical History: MMTP 70mg per day, Weight loss history, HIV+ history Psychiatric History: Patient reports history of Bipolar duisorder, reports no0 suicidal, homicidial history, reports taking prior to admission: Lexaoro 20mg poqd. Trazodone 100mg po qhs. Patient willing to restart above medications Physical/Sexual Abuse/Trauma History: Denies Additional Comment: Lexaoro 20mg poqd. Trazodone 100mg po qhs Mental Status Exam - Mental Status Exam Alert and Oriented to: Person Cognitive Function: Fair Patient Appearance: Well Groomed Mood: Apprehensive Affect: Mood Congruent Patient Behavior: Cooperative Speech Pattern: Appropriate Voice Loudness: Normal Thought Process: Goal Oriented Thought Disorder: Being Controlled Hallucinations: Denies Suicidal Ideation: Denies Homicidal Ideation: Denies Insight/Judgement: Fair Sleep: Difficulty falling asleep Appetite: Fair Muscle strength/Tone: Normal Gait/Station: Normal Additional Comments: Lexaoro 20mg poqd. Trazodone 100mg po qhs Psychiatric Findings - Problem List ([place] 1, 2,3) (1) Alcohol dependence with uncomplicated withdrawal Current Visit: Yes Status: Acute (2) Nicotine dependence Current Visit: Yes Status: Acute Qualifiers: Nicotine product type: cigarettes Substance use status: in withdrawal Qualified Code(s): F17.213 - Nicotine dependence, cigarettes, with withdrawal (3) Weight loss Current Visit: Yes Status: Acute (4) HIV (human immunodeficiency virus infection) Current Visit: Yes Status: Chronic Comment: no medication (5) Bipolar disorder Current Visit: Yes Status: Suspected Qualifiers: Active/Remission status: in partial remission Most recent bipolar episode type: mixed Qualified Code(s): F31.77 - Bipolar disorder, in partial remission , most recent episode mixed Comment: Self reports. (6) Alcohol dependence with intoxication Current Visit: No Status: Chronic Qualifiers: Complication of substance-induced condition: uncomplicated Qualified Code(s ): F10.220 - Alcohol dependence with intoxication, uncomplicated (7) Drug-induced mood disorder Current Visit: No Status: Suspected - Initial Treatment Plan Initial Treatment Plan: Lexaoro 20mg poqd. Trazodone 100mg po qhs
--- NOTE | 2017-08-22 09:25 | PN ---
[facility] CIWA - CIWA Score Nausea/Vomitin-Mild Nausea/No Vomiting Muscle Tremors: 4-Moderate,w/Arms Extend Anxiety: 4-Mod. Anxious/Guarded Agitation: 4-Moderately Restless Paroxysmal Sweats: 1-Minimal Palms Moist Orientation: 0-Oriented Tacttile Disturbances: 0-None Auditory Disturbances: 0-None Visual Disturbances: 0-None Headache: 0-None Present CIWA-Ar Total Score: 14 BHS Progress Note (SOAP) Subjective: sweat tremor anxiety restlessness irritable gi distress Objective: 08/22/17 09:27 Vital Signs Temperature 97.9 F 08/22/17 07:48 Pulse Rate 73 08/22/17 08:00 Respiratory Rate 18 08/22/17 08:00 Blood Pressure 133/80 08/22/17 07:48 O2 Sat by Pulse Oximetry (%) lab not available Assessment: 08/22/17 09:28 withdrawal sx Plan: continue detox
[2017-08-22] MEDS ORDERED: METHADONE HCL 40 MG DISPERSABLE TABLET PO SCH (10:00)
[2017-08-22 10:16] LABS: HEMATOCRIT 38.5 % (32.4-45.2); HEMOGLOBIN 12.5 GM/dL (10.7-15.3); MCH 29.1 pg (25.7-33.7); MCHC 32.4 g/dl (32.0-36.0); MEAN CELL VOLUME 89.7 fl (80-96); MEAN PLT VOLUME 8.5 fl (7.5-11.1); PLATELET COUNT 226 K/MM3 (134-434); RBC 4.29 M/mm3 (3.60-5.2); RDW 15.4 % (11.6-15.6); WHITE BLOOD COUNT 6.5 K/mm3 (4.0-10.0)
[2017-08-22] MEDS: guaiFENesin 600 MG TABLET.ER (FP) PO SCH ×2 (10:26→22:53)
[2017-08-22] MEDS: NICOTINE 14 MG/24 HOURS TOPICAL PATCH TD SCH (10:26)
[2017-08-22] MEDS: PRENATAL VITAMINS W/ FOLIC ACID TABLET (FP) PO SCH (10:26)
[2017-08-22] MEDS: ESCITALOPRAM OXALATE 20 MG TABLET (FP) PO SCH (10:26)
[2017-08-22] MEDS: RANITIDINE HCL 150 MG TABLET (FP) PO SCH ×2 (10:26→22:16)
[2017-08-22] MEDS ORDERED: METHADONE HCL 40 MG DISPERSABLE TABLET ONE (10:28)
[2017-08-22] MEDS ORDERED: METHADONE HCL 10 MG TABLET ONE (10:28)
[2017-08-22] MEDS: METHADONE 40 MG, METHADONE 30 MG PO SCH (10:29)
[2017-08-22 10:33] LABS: CHLORIDE 106 mmol/L (98-107); POTASSIUM 4.5 mmol/L (3.5-5.1); SODIUM 143 mmol/L (136-145)
[2017-08-22 10:54] LABS: URINE APPEARANCE SLCLOUDY; URINE BILIRUBIN NEGATIVE (<2.0 mg/dL); URINE COLOR AMBER; URINE GLUCOSE (UA) NEGATIVE (NEGATIVE); URINE KETONE NEGATIVE (NEGATIVE); URINE LEUK ESTERASE TRACE (NEGATIVE); URINE NITRITE NEGATIVE (NEGATIVE)
[2017-08-22 11:03] LABS: ALBUMIN 4.2 g/dl (3.4-5.0); ALK PHOS 129 U/L (45-117); ANION GAP 8 (8-16); BILIRUBIN,TOTAL 0.3 mg/dL (0.2-1.0); BLOOD UREA NITROGEN 19 mg/dL (7-18); CALCIUM 9.3 mg/dL (8.5-10.1); CO2 29 mmol/L (21-32); CREATININE 0.9 mg/dL (0.55-1.02); GLUCOSE,RANDOM 111 mg/dL (74-106); SGOT/AST 37 U/L (15-37); SGPT/ALT 44 U/L (12-78)
[2017-08-22 11:07] LABS: URINE PROTEIN 1+ (NEGATIVE)
[2017-08-22 11:32] LABS: CALCIUM OXALATE CRYSTALS MODERATE /hpf (NONE SEEN); EPI CELLS RARE /HPF (FEW); URINE HYALINE CAST 143 /lpf; URINE MUCUS RARE
--- NOTE | 2017-08-22 12:11 | EKG ---
Test Reason : Blood Pressure : / mmHG Vent. Rate : 076 BPM Atrial Rate : 076 BPM P-R Int : 150 ms QRS Dur : 084 ms QT Int : 380 ms P-R-T Axes : 070 067 039 degrees QTc Int : 427 ms NORMAL SINUS RHYTHM NORMAL ECG WHEN COMPARED WITH ECG OF 29-JUN-2017 19:29, NO SIGNIFICANT CHANGE WAS FOUND Confirmed by TIRSO CORDON MD ([id number]) on 08/22/2017 12:10:51 PM Referred By: Confirmed By:TIRSO CORDON MD
[2017-08-22] MEDS: THIAMINE HCL 100 MG TABLET (FP) PO SCH (22:15)
[2017-08-22] MEDS: traZODone HCL 50 MG TABLET (FP) PO SCH (22:15)
[2017-08-23] MEDS: chlordiazePOXIDE HCL 25 MG CAPSULE PO SCH ×2 (05:40→10:45)
--- NOTE | 2017-08-23 09:54 | PN ---
[facility] CIWA - CIWA Score Nausea/Vomitin-No Nausea/No Vomiting Muscle Tremors: 1-None Visible, but [place] Anxiety: 3 Agitation: 3 Paroxysmal Sweats: 1-Minimal Palms Moist Orientation: 0-Oriented Tacttile Disturbances: 1-Very Mild Itch/Numbness Auditory Disturbances: 0-None Visual Disturbances: 1-Very Mild Sensitivity Headache: 1-Very Mild CIWA-Ar Total Score: 11 S Progress Note (SOAP) Subjective: c/o anxious, interrupted sleep, chills Objective: 08/23/17 09:52 Vital Signs Temperature 97.9 F 08/23/17 07:46 Pulse Rate 60 08/23/17 07:46 Respiratory Rate 18 08/23/17 07:46 Blood Pressure 112/62 08/23/17 07:46 O2 Sat by Pulse Oximetry (%) Laboratory Last Values WBC 6.5 K/mm3 (4.0-10.0) 08/22/17 06:00 RBC 4.29 M/mm3 (3.60-5.2) 08/22/17 06:00 Hgb 12.5 GM/dL (10.7-15.3) 08/22/17 06:00 Hct 38.5 % (32.4-45.2) 08/22/17 06:00 MCV 89.7 fl (80-96) 08/22/17 06:00 MCH 29.1 pg (25.7-33.7) 08/22/17 06:00 MCHC 32.4 g/dl (32.0-36.0) 08/22/17 06:00 RDW 15.4 % (11.6-15.6) 08/22/17 06:00 Plt Count 226 K/MM3 (134-434) 08/22/17 06:00 MPV 8.5 fl (7.5-11.1) 08/22/17 06:00 Sodium 143 mmol/L (136-145) 08/22/17 06:00 Potassium 4.5 mmol/L (3.5-5.1) 08/22/17 06:00 Chloride 106 mmol/L (98-107) 08/22/17 06:00 Carbon Dioxide 29 mmol/L (21-32) 08/22/17 06:00 Anion Gap 8 (8-16) 08/22/17 06:00 BUN 19 mg/dL (7-18) H 08/22/17 06:00 Creatinine 0.9 mg/dL (0.55-1.02) 08/22/17 06:00 Creat Clearance w eGFR > 60 (>60) 08/22/17 06:00 Random Glucose 111 mg/dL (74-106) H 08/22/17 06:00 Calcium 9.3 mg/dL (8.5-10.1) 08/22/17 06:00 Total Bilirubin 0.3 mg/dL (0.2-1.0) 08/22/17 06:00 AST 37 U/L (15-37) 08/22/17 06:00 ALT 44 U/L (12-78) 08/22/17 06:00 Alkaline Phosphatase 129 U/L (45-117) H 08/22/17 06:00 Total Protein 8.0 g/dl (6.4-8.2) 08/22/17 06:00 Albumin 4.2 g/dl (3.4-5.0) 08/22/17 06:00 Urine Color [place] 08/22/17 08:30 Urine Appearance Slcloudy 08/22/17 08:30 Urine pH 6.0 (5.0-8.0) 08/22/17 08:30 Ur Specific [place] 1.023 (1.001-1.035) 08/22/17 08:30 Urine Protein 1+ (NEGATIVE) H 08/22/17 08:30 Urine Glucose (UA) Negative (NEGATIVE) 08/22/17 08:30 Urine Ketones Negative (NEGATIVE) 08/22/17 08:30 Urine Blood Negative (NEGATIVE) 08/22/17 08:30 Urine Nitrite Negative (NEGATIVE) 08/22/17 08:30 Urine Bilirubin Negative (<2.0 mg/dL) 08/22/17 08:30 Urine Urobilinogen 2.0 mg/dL (0.2-1.0) H 08/22/17 08:30 Ur Leukocyte Esterase Trace (NEGATIVE) 08/22/17 08:30 Urine WBC (Auto) None /hpf (3-5) 08/22/17 08:30 Urine RBC (Auto) 2 /hpf (0-3) 08/22/17 08:30 Ur Epithelial Cells Rare /HPF (FEW) 08/22/17 08:30 Calcium Oxalate Crystal Moderate /hpf (NONE SEEN) 08/22/17 08:30 Hyaline Casts 143 /lpf 08/22/17 08:30 Urine Mucus Rare 08/22/17 08:30 RPR Titer Nonreactive (NONREACTIVE) 08/22/17 06:00 08/23/17 09:53 AOx3 no distress no adventitious breath sounds ambulating in the unit without limitations Assessment: 08/23/17 09:53 withdrawal sx Plan: increase fluids continue to monitor
[2017-08-23] MEDS ORDERED: METHADONE HCL 40 MG DISPERSABLE TABLET ONE (10:04)
[2017-08-23] MEDS ORDERED: METHADONE HCL 10 MG TABLET ONE (10:04)
[2017-08-23] MEDS: PRENATAL VITAMINS W/ FOLIC ACID TABLET (FP) PO SCH (10:45)
[2017-08-23] MEDS: RANITIDINE HCL 150 MG TABLET (FP) PO SCH ×2 (10:45→22:18)
[2017-08-23] MEDS: guaiFENesin 600 MG TABLET.ER (FP) PO SCH ×2 (10:46→22:18)
[2017-08-23] MEDS: ESCITALOPRAM OXALATE 20 MG TABLET (FP) PO SCH (10:46)
[2017-08-23] MEDS: METHADONE 40 MG, METHADONE 30 MG PO SCH (10:46)
[2017-08-23] MEDS: NICOTINE 14 MG/24 HOURS TOPICAL PATCH TD SCH (10:46)
[2017-08-23] MEDS: chlordiazePOXIDE 5 MG CAPSULE PO SCH ×2 (17:18→22:18)
[2017-08-23] MEDS: THIAMINE HCL 100 MG TABLET (FP) PO SCH (22:17)
[2017-08-23] MEDS: traZODone HCL 50 MG TABLET (FP) PO SCH (22:18)
[2017-08-24] MEDS: chlordiazePOXIDE 5 MG CAPSULE PO SCH ×2 (05:30→10:49)
[2017-08-24] MEDS: ESCITALOPRAM OXALATE 20 MG TABLET (FP) PO SCH (10:49)
[2017-08-24] MEDS: PRENATAL VITAMINS W/ FOLIC ACID TABLET (FP) PO SCH (10:49)
[2017-08-24] MEDS: RANITIDINE HCL 150 MG TABLET (FP) PO SCH ×2 (10:49→23:13)
[2017-08-24] MEDS ORDERED: METHADONE HCL 10 MG TABLET ONE (10:51)
[2017-08-24] MEDS ORDERED: METHADONE HCL 40 MG DISPERSABLE TABLET ONE (10:51)
[2017-08-24] MEDS: METHADONE 40 MG, METHADONE 30 MG PO SCH (10:52)
[2017-08-24] MEDS: NICOTINE 14 MG/24 HOURS TOPICAL PATCH TD SCH (10:52)
[2017-08-24] MEDS: guaiFENesin 600 MG TABLET.ER (FP) PO SCH ×2 (14:48→23:13)
[2017-08-24] MEDS: chlordiazePOXIDE HCL 10 MG CAPSULE PO SCH ×2 (18:09→23:13)
--- NOTE | 2017-08-24 22:52 | PN ---
[facility] Progress Note (SOAP) Subjective: Shakes sleep disturbance sweats Objective: 08/24/17 In room sleeping Arouses to deep verbal stimuli Not in acute distress Vital Signs Vital Signs Temperature 98.1 F 08/24/17 22:17 Pulse Rate 65 08/24/17 22:17 Respiratory Rate 18 08/24/17 22:17 Blood Pressure 94/66 08/24/17 22:17 O2 Sat by Pulse Oximetry (%) Assessment: 08/24/17 withdrawal sx Plan: continue detox
[2017-08-24] MEDS: THIAMINE HCL 100 MG TABLET (FP) PO SCH (23:12)
[2017-08-24] MEDS: traZODone HCL 50 MG TABLET (FP) PO SCH (23:15)
[2017-08-25] MEDS: chlordiazePOXIDE HCL 10 MG CAPSULE PO SCH (06:10)
[2017-08-25 06:48] VITALS: BP 137/67; PULSE 68; TEMP 97.7
--- NOTE | 2017-08-25 08:30 | DS ---
[facility] Detox Discharge Summary Admission Date: 08/21/17 Discharge Date: 08/25/17 - History Present History: Alcohol Dependence Additional Comments: 57 years old female admitted on 08/21/17 for alcohol withdrawal sx completed alcohol detox regimen tolerated well denies alcohol withdrawal sx alert oriented x 3 no acute distress [facility] for medical mental and addiction issues - Physical Exam Results Vital Signs: Vital Signs Temperature 97.7 F 08/25/17 06:00 Pulse Rate 68 08/25/17 06:00 Respiratory Rate 18 08/25/17 06:00 Blood Pressure 137/67 08/25/17 06:00 O2 Sat by Pulse Oximetry (%) Pertinent Admission Physical Exam Findings: alcohol withdrawal sx Vital Signs Temperature 97.7 F 08/25/17 06:00 Pulse Rate 68 08/25/17 06:00 Respiratory Rate 18 08/25/17 06:00 Blood Pressure 137/67 08/25/17 06:00 O2 Sat by Pulse Oximetry (%) Laboratory Last Values WBC 6.5 K/mm3 (4.0-10.0) 08/22/17 06:00 RBC 4.29 M/mm3 (3.60-5.2) 08/22/17 06:00 Hgb 12.5 GM/dL (10.7-15.3) 08/22/17 06:00 Hct 38.5 % (32.4-45.2) 08/22/17 06:00 MCV 89.7 fl (80-96) 08/22/17 06:00 MCH 29.1 pg (25.7-33.7) 08/22/17 06:00 MCHC 32.4 g/dl (32.0-36.0) 08/22/17 06:00 RDW 15.4 % (11.6-15.6) 08/22/17 06:00 Plt Count 226 K/MM3 (134-434) 08/22/17 06:00 MPV 8.5 fl (7.5-11.1) 08/22/17 06:00 Sodium 143 mmol/L (136-145) 08/22/17 06:00 Potassium 4.5 mmol/L (3.5-5.1) 08/22/17 06:00 Chloride 106 mmol/L (98-107) 08/22/17 06:00 Carbon Dioxide 29 mmol/L (21-32) 08/22/17 06:00 Anion Gap 8 (8-16) 08/22/17 06:00 BUN 19 mg/dL (7-18) H 08/22/17 06:00 Creatinine 0.9 mg/dL (0.55-1.02) 08/22/17 06:00 Creat Clearance w eGFR > 60 (>60) 08/22/17 06:00 Random Glucose 111 mg/dL (74-106) H 08/22/17 06:00 Calcium 9.3 mg/dL (8.5-10.1) 08/22/17 06:00 Total Bilirubin 0.3 mg/dL (0.2-1.0) 08/22/17 06:00 AST 37 U/L (15-37) 08/22/17 06:00 ALT 44 U/L (12-78) 08/22/17 06:00 Alkaline Phosphatase 129 U/L (45-117) H 08/22/17 06:00 Total Protein 8.0 g/dl (6.4-8.2) 08/22/17 06:00 Albumin 4.2 g/dl (3.4-5.0) 08/22/17 06:00 Urine Color [place] 08/22/17 08:30 Urine Appearance Slcloudy 08/22/17 08:30 Urine pH 6.0 (5.0-8.0) 08/22/17 08:30 Ur Specific [place] 1.023 (1.001-1.035) 08/22/17 08:30 Urine Protein 1+ (NEGATIVE) H 08/22/17 08:30 Urine Glucose (UA) Negative (NEGATIVE) 08/22/17 08:30 Urine Ketones Negative (NEGATIVE) 08/22/17 08:30 Urine Blood Negative (NEGATIVE) 08/22/17 08:30 Urine Nitrite Negative (NEGATIVE) 08/22/17 08:30 Urine Bilirubin Negative (<2.0 mg/dL) 08/22/17 08:30 Urine Urobilinogen 2.0 mg/dL (0.2-1.0) H 08/22/17 08:30 Ur Leukocyte Esterase Trace (NEGATIVE) 08/22/17 08:30 Urine WBC (Auto) None /hpf (3-5) 08/22/17 08:30 Urine RBC (Auto) 2 /hpf (0-3) 08/22/17 08:30 Ur Epithelial Cells Rare /HPF (FEW) 08/22/17 08:30 Calcium Oxalate Crystal Moderate /hpf (NONE SEEN) 08/22/17 08:30 Hyaline Casts 143 /lpf 08/22/17 08:30 Urine Mucus Rare 08/22/17 08:30 RPR Titer Nonreactive (NONREACTIVE) 08/22/17 06:00 lab noted increase oral fluid - Treatment Hospital Course: Detox Protocol Followed, Detoxed Safely, Responded well, Discharged Condition Good, Rehab Referral Accepted Patient has Accepted a [facility] - Medication Discharge Medications: Ambulatory Orders Escitalopram Oxalate [Lexapro -] 20 mg PO DAILY #30 tablet 05/16/17 Methadone [Dolophine -] 70 mg PO DAILY 05/19/17 Escitalopram Oxalate [Lexapro -] 20 mg PO DAILY #30 tablet 08/22/17 Trazodone HCl 50 mg PO HS #30 tablet 08/22/17 - Diagnosis (1) Alcohol dependence with uncomplicated withdrawal Status: Acute (2) Nicotine dependence Status: Acute Qualifiers: Nicotine product type: cigarettes Substance use status: in withdrawal Qualified Code(s): F17.213 - Nicotine dependence, cigarettes, with withdrawal (3) Weight loss Status: Acute (4) HIV (human immunodeficiency virus infection) Status: Chronic (5) Methadone maintenance therapy patient Status: Chronic (6) Bipolar disorder Status: Suspected Qualifiers: Active/Remission status: in partial remission Most recent bipolar episode type: mixed Qualified Code(s): F31.77 - Bipolar disorder, in partial remission , most recent episode mixed - AMA Did Patient Leave Against Medical Advice: No
[2017-08-25] MEDS ORDERED: METHADONE HCL 40 MG DISPERSABLE TABLET ONE (08:57)
[2017-08-25] MEDS ORDERED: METHADONE HCL 10 MG TABLET ONE (08:58)
[2017-08-25] MEDS: PRENATAL VITAMINS W/ FOLIC ACID TABLET (FP) PO SCH (09:17)
[2017-08-25] MEDS: METHADONE 40 MG, METHADONE 30 MG PO SCH (09:17)
[2017-08-25] MEDS: guaiFENesin 600 MG TABLET.ER (FP) PO SCH (09:17)
[2017-08-25] MEDS: RANITIDINE HCL 150 MG TABLET (FP) PO SCH (09:17)
[2017-08-25] MEDS: ESCITALOPRAM OXALATE 20 MG TABLET (FP) PO SCH (09:17)
== END 2017-08-25 09:24 | disposition home or self-care (01) | DRG 773 ==
LOC: YASAS 11:55 → Y6N 13:49
PROVIDERS: ADMIT Surgery; ATTEND Surgery
PROC: HZ2ZZZZ Detoxification Services for Substance Abuse Treatment (ICD-10-PCS; principal; 2017-08-21)
DX: F10.230 Alcohol dependence with withdrawal, uncomplicated (principal); F11.20 Opioid dependence, uncomplicated; F17.210 Nicotine dependence, cigarettes, uncomplicated; F19.24 Other psychoactive substance dependence with psychoactive substance-induced mood disorder; F31.77 Bipolar disorder, in partial remission, most recent episode mixed; F32.9 Major depressive disorder, single episode, unspecified; Z21 Asymptomatic human immunodeficiency virus [HIV] infection status; R63.4 Abnormal weight loss; Z68.21 Body mass index [BMI] 21.0-21.9, adult; D50.9 Iron deficiency anemia, unspecified
CPT/HCPCS: 36415; 80053; 81003; 81015; 85027; 86593; 93005; 93010

== ENCOUNTER 2017-11-13 14:59 | Inpatient (IN) | payer OTHER ==
[2017-11-13 15:25] VITALS: BMI 21.5
--- NOTE | 2017-11-13 16:29 | HP ---
CIWA Score - CIWA Score Nausea/Vomitin Muscle Tremors: 2 Anxiety: 4-Mod. Anxious/Guarded Agitation: 3 Paroxysmal Sweats: 1-Minimal Palms Moist Orientation: 1-Uncertain about Date (no distress) Tacttile Disturbances: 1-Very Mild Itch/Numbness Auditory Disturbances: 0-None Visual Disturbances: 1-Very Mild Sensitivity Headache: 0-None Present CIWA-Ar Total Score: 16 Admission ROS BHS - HPI Chief Complaint: alcohol withdrawal symptoms Allergies/Adverse Reactions: Allergies Allergy/AdvReac Type Severity Reaction Status Date / Time No Known Allergies Allergy Verified 09/20/17 11:06 History of Present Illness: 57 yo female with hx of nicotine, heroin (nasal), and alcohol dependence is here seeking detox, this is one of multiple admissions. Last detox [facility] 09/20/17 -09/24/17. MMTP: [facility] on methadone 70 mg , last mediated today. Dose pending verification. Hx: HIV+ (declines tx), Anemia, depression and anxiety. Denies suicidal / homicidal ideation. Denies hx of seizures or blackouts. Hx of overdose x 1, one two months ago. Denies any legal troubles at this time. Denies any significant period of sobriety. Exam Limitations: No Limitations - Ebola screening Have you traveled outside of the country in the last 21 days: No Have you had contact with anyone from an Ebola affected area: No Have you been sick,other than usual withdrawal symptoms: No - Review of Systems Constitutional: Chills, Loss of Appetite, Other (weight fluctuates) EENT: reports: Hearing Loss (right ear), Other (nose bleeds in AM) Respiratory: reports: No Symptoms reported Cardiac: reports: No Symptoms Reported GI: reports: Nausea, Poor Fluid Intake, Indigestion, Abdominal cramping : reports: No Symptoms Reported Musculoskeletal: reports: No Symptoms Reported Integumentary: reports: Pruritus Neuro: reports: No Symptoms reported Endocrine: reports: Increased Thirst Hematology: reports: See HPI Psychiatric: reports: Orientated x3, Anxious, other (anxiety accompanied with chest pain and SOB, non-adherent with psych treatment) Other Systems: Reviewed and Negative Patient History - Patient Medical History Hx Anemia: Yes (AILEEN non compliance) Hx Asthma: No Hx Chronic Obstructive Pulmonary Disease (COPD): No Hx Cancer: No Hx Cardiac Disorders: No Hx Congestive Heart Failure: No Hx Hypertension: No Hx Hypercholesterolemia: No Hx Pacemaker: No HX Cerebrovascular Accident: No Hx Seizures: No Hx Dementia: No Hx Diabetes: No Hx Gastrointestinal Disorders: No Hx Liver Disease: Yes Hx Genitourinary Disorders: No Hx Sexually Transmitted Disorders: No Hx Renal Disease (ESRD): No Hx Thyroid Disease: No Hx Human Immunodeficiency Virus (HIV): Yes (since 2001, declines medication tx) Hx Hepatitis C: No (negative at methadone maintenance program) Hx Depression: Yes Hx Suicide Attempt: No Hx Bipolar Disorder: Yes Hx Schizophrenia: No - Patient Surgical History Past Surgical History: No Hx Neurologic Surgery: No Hx Cataract Extraction: No Hx Cardiac Surgery: No Hx Lung Surgery: No Hx Breast Surgery: No Hx Breast Biopsy: No Hx Abdominal Surgery: No Hx Appendectomy: No Hx Cholecystectomy: No Hx Genitourinary Surgery: No Hx Section: No Hx Orthopedic Surgery: Yes (fx right hand 2018) Anesthesia Reaction: No - PPD History Previous Implant?: No Documented Results: Negative w/proof Date: 05/17/17 Results: 0mm PPD to be Administered?: No - Smoking Cessation Smoking history: Current every day smoker Have you smoked in the past 12 months: Yes Aproximately how many cigarettes per day: 10 Cigars Per Day: 0 Hx Chewing Tobacco Use: No Initiated information on smoking cessation: Yes 'Breaking Loose' booklet given: 11/13/17 - Substance & Tx. History Hx Alcohol Use: Yes Hx Substance Use: Yes Substance Use Type: Alcohol Hx Substance Use Treatment: Yes ([facility] 09/20/17 -09/24/17) - Substances Abused Alcohol Route: Oral Frequency: Daily Amount used: 1.5 pint Liquor Age of first use: 13 Date of Last Use: 11/13/17 Cocaine Route: Inhalation Frequency: 1-3 times last 30 days Amount used: $10 Age of first use: 57 Date of Last Use: 11/10/17 Family Disease History - Family Disease History Family Disease History: Other: Father (alcohol,), Mother ( hiv) , Sister (hiv ) Admission Physical Exam BHS - Vital Signs Vital Signs: Vital Signs - 24 hr 11/13/17 15:16 Temperature 99.1 F Pulse Rate 80 Respiratory 18 Rate Blood Pressure 96/60 - Physical General Appearance: Yes: Disheveled, Mild Distress, Irritable, Anxious, Other ( unkempt) HEENTM: Yes: EOMI, Normal ENT Inspection, Normal Voice, [place], Pharynx Normal, Tm 's normal, Other ([place] right ear) Respiratory: Yes: Chest Non-Tender, Lungs Clear, Normal Breath Sounds, No Respiratory Distress, No Accessory Muscle Use Neck: Yes: Within Normal Limits Breast: Yes: Breast Exam Deferred Cardiology: Yes: Regular Rhythm, Regular Rate Abdominal: Yes: Within Normal Limits Genitourinary: Yes: Within Normal Limits Back: Yes: Normal Inspection Musculoskeletal: Yes: full range of Motion, Gait Steady, Pelvis Stable Extremities: Yes: Normal Capillary Refill, Normal Inspection, Normal Range of Motion, Non-Tender 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: Yes: client care representative II-XII NML intact, Fully Oriented, Alert, Motor Strength 5/5, Depressed Affect Integumentary: Yes: Normal Color, Warm, Moist Lymphatic: Yes: Within Normal Limits - Diagnostic (1) Opioid dependence on agonist therapy Current Visit: Yes Status: Chronic Comment: On Methadone 70 mg qd, dose pending verification (2) Alcohol dependence with uncomplicated withdrawal Current Visit: Yes Status: Acute (3) HIV (human immunodeficiency virus infection) Current Visit: Yes Status: Chronic Comment: Patient reports she does not want treatment (4) Nicotine dependence Current Visit: Yes Status: Chronic Qualifiers: Nicotine product type: cigarettes Substance use status: uncomplicated Qualified Code(s): F17.210 - Nicotine dependence, cigarettes, uncomplicated Cleared for Admission [facility] - Detox or Rehab [facility] Level of Care: Medically Managed Detox Regimen/Protocol: Librium [facility] Breath Alcohol Content Breath Alcohol Content: 0.256 Urine Pregancy Test - Result Urine Test Results: Negative- NO Line Present Urine Drug Screen - Results Drug Screen Negative: No Urine Drug Screen Results: JAYLEN-Cocaine, OPI-Opiates, BZO-Benzodiazepines, MTD- Methadone, OXY-Oxycodone, FEN-Fentanyl
[2017-11-13] MEDS ORDERED: LOPERAMIDE HCL 2 MG CAPSULE PO PRN (16:38)
[2017-11-13] MEDS ORDERED: ACETAMINOPHEN 325 MG TABLET (FP) PO PRN (16:38)
[2017-11-13] MEDS ORDERED: chlordiazePOXIDE HCL 25 MG CAPSULE PO PRN (16:38)
[2017-11-13] MEDS ORDERED: MAGNESIUM HYDROX 2400MG/30ML ORAL SUSPENSION 30 ML CUP PO PRN (16:38)
[2017-11-13] MEDS ORDERED: IBUPROFEN 400 MG TABLET (FP) PO PRN (16:38)
[2017-11-13] MEDS ORDERED: MAG HYDROX/AL HYDROX/SIMETH 30 ML UNIT-DOSE CUP PO PRN (16:38)
[2017-11-13] MEDS ORDERED: MENTHOL/PHENOL 1 EACH UD MM PRN (16:38)
[2017-11-13] MEDS ORDERED: MAGNESIUM CITRATE 300 ML BOTTLE PO PRN (16:38)
[2017-11-13] MEDS ORDERED: hydrOXYzine PAMOATE 50 MG CAPSULE (FP) PO PRN (16:38)
[2017-11-13] MEDS ORDERED: NICOTINE POLACRILEX 2 MG GUM BC PRN (16:38)
[2017-11-13] MEDS ORDERED: guaiFENesin/D-METHORPHAN HB 10 ML UNIT-DOSE CUPS PO PRN (16:38)
[2017-11-13] MEDS ORDERED: chlordiazePOXIDE HCL 25 MG CAPSULE PO ONE (18:00)
[2017-11-13] MEDS: P-EPHED 60MG/TRIPROLIDI 2.5MG TABLET PO PRN (19:56)
[2017-11-13] MEDS ORDERED: MELATONIN 5 MG TABLETS PO PRN (22:00)
[2017-11-13] MEDS: chlordiazePOXIDE HCL 25 MG CAPSULE PO SCH (22:10)
[2017-11-13] MEDS: THIAMINE HCL 100 MG TABLET (FP) PO SCH (22:10)
[2017-11-14] MEDS: chlordiazePOXIDE HCL 25 MG CAPSULE PO SCH ×4 (06:19→22:27)
--- NOTE | 2017-11-14 08:39 | PN ---
S Progress Note Note: Vital Signs Temperature 97.9 F 11/14/17 06:49 Pulse Rate 74 11/14/17 07:59 Respiratory Rate 16 11/14/17 07:59 Blood Pressure 133/78 11/14/17 06:49 O2 Sat by Pulse Oximetry (%) MMTP: [facility] , on methadone dose 70 mg, last medicated 11/13/17. Dose verified by Keren Thomas with Mina Edward RN
[2017-11-14] MEDS ORDERED: METHADONE HCL 10 MG TABLET PO SCH (08:45)
[2017-11-14] MEDS ORDERED: METHADONE HCL 40 MG DISPERSABLE TABLET ONE (09:09)
[2017-11-14] MEDS ORDERED: METHADONE HCL 10 MG TABLET ONE (09:10)
[2017-11-14] MEDS: METHADONE 40 MG, METHADONE 30 MG PO SCH (09:21)
[2017-11-14 09:52] LABS: URINE APPEARANCE CLEAR; URINE BILIRUBIN NEGATIVE (<2.0 mg/dL); URINE COLOR YELLOW; URINE GLUCOSE (UA) NEGATIVE (NEGATIVE); URINE KETONE NEGATIVE (NEGATIVE); URINE LEUK ESTERASE NEGATIVE (NEGATIVE); URINE NITRITE NEGATIVE (NEGATIVE); URINE PROTEIN NEGATIVE (NEGATIVE); URINE UROBILINOGEN NEGATIVE mg/dL (0.2-1.0)
[2017-11-14 09:58] LABS: HEMATOCRIT 38.5 % (32.4-45.2); HEMOGLOBIN 12.1 GM/dL (10.7-15.3); MCH 28.2 pg (25.7-33.7); MCHC 31.5 g/dl (32.0-36.0); MEAN CELL VOLUME 89.6 fl (80-96); MEAN PLT VOLUME 8.4 fl (7.5-11.1); PLATELET COUNT 212 K/MM3 (134-434); RDW 15.5 % (11.6-15.6); WHITE BLOOD COUNT 4.1 K/mm3 (4.0-10.0)
--- NOTE | 2017-11-14 10:00 | PN ---
S CIWA - CIWA Score Nausea/Vomitin-No Nausea/No Vomiting Muscle Tremors: 3 Anxiety: 3 Agitation: 3 Paroxysmal Sweats: 2 Orientation: 0-Oriented Tacttile Disturbances: 1-Very Mild Itch/Numbness Auditory Disturbances: 0-None Visual Disturbances: 0-None Headache: 0-None Present CIWA-Ar Total Score: 12 BHS Progress Note (SOAP) Subjective: c/o of feeling anxious, interrupted sleep, chills and sweats Objective: 11/14/17 09:58 Vital Signs Temperature 98.2 F 11/14/17 09:57 Pulse Rate 67 11/14/17 09:57 Respiratory Rate 18 11/14/17 09:57 Blood Pressure 126/85 11/14/17 09:57 O2 Sat by Pulse Oximetry (%) Laboratory Last Values Urine Color Yellow 11/14/17 07:00 Urine Appearance Clear 11/14/17 07:00 Urine pH 7.0 (5.0-8.0) 11/14/17 07:00 Ur Specific [place] 1.019 (1.001-1.035) 11/14/17 07:00 Urine Protein Negative (NEGATIVE) 11/14/17 07:00 Urine Glucose (UA) Negative (NEGATIVE) 11/14/17 07:00 Urine Ketones Negative (NEGATIVE) 11/14/17 07:00 Urine Blood Negative (NEGATIVE) 11/14/17 07:00 Urine Nitrite Negative (NEGATIVE) 11/14/17 07:00 Urine Bilirubin Negative (<2.0 mg/dL) 11/14/17 07:00 Urine Urobilinogen Negative mg/dL (0.2-1.0) 11/14/17 07:00 Ur Leukocyte Esterase Negative (NEGATIVE) 11/14/17 07:00 additional labs pending Aox3 anxious, pacing, no distress no adventitious breath sounds full ROM ambulating in the unit independently Assessment: 11/14/17 09:59 withdrawal sx Plan: continue detox increase PO fluids continue to monitor
[2017-11-14 10:08] LABS: ALBUMIN 3.7 g/dl (3.4-5.0); ALK PHOS 105 U/L (45-117); ANION GAP 5 MMOL/L (8-16); BILIRUBIN,TOTAL 0.4 mg/dL (0.2-1); BLOOD UREA NITROGEN 15 mg/dL (7-18); CALCIUM 9.8 mg/dL (8.5-10.1); CHLORIDE 100 mmol/L (98-107); CO2 34 mmol/L (21-32); CREATININE 0.6 mg/dL (0.55-1.3); GLUCOSE,RANDOM 79 mg/dL (74-106); POTASSIUM 4.9 mmol/L (3.5-5.1); SGOT/AST 29 U/L (15-37); SGPT/ALT 34 U/L (13-61); SODIUM 140 mmol/L (136-145); TOT PROT 7.6 g/dl (6.4-8.2)
[2017-11-14] MEDS: PRENATAL VITAMINS W/ FOLIC ACID TABLET (FP) PO SCH (10:28)
[2017-11-14] MEDS: NICOTINE 14 MG/24 HOURS TOPICAL PATCH TD SCH (10:28)
--- NOTE | 2017-11-14 14:10 | CONSULT ---
[facility] Psychiatric Consult - Data Date of interview: 11/14/17 Admission source: [facility] Identifying data: Patient is a 57 year old single female, mother of two, domiciled, unemployed, and is supported by [facility]. This is one of multiple admissions for patient. Patient admitted to for alcohol dependence. Substance Abuse History: Smoking Cessation. Smoking history: Current every day smoker. Have you smoked in the past 12 months: Yes. Aproximately how many cigarettes per day: 10. Cigars Per Day: 0. Hx Chewing Tobacco Use: No. Initiated information on smoking cessation: Yes. 'Breaking Loose' booklet given : 11/13/17. - Substance & Tx. History. Hx Alcohol Use: Yes. Hx Substance Use : Yes. Substance Use Type: Alcohol. Hx Substance Use Treatment: Yes ([facility] 09/20 -09/24/17). - Substances Abused. Alcohol. Route: Oral. Frequency: Daily. Amount used: 1.5 pint Liquor. Age of first use: 13. Date of Last Use: 11/13/17. Cocaine. Route: Inhalation. Frequency: 1-3 times last 30 days. Amount used: $10. Age of first use: 57. Date of Last Use: 11/10/17 Medical History: Anemia, HIV, fracture right hand (2018) Psychiatric History: Patient's first psychiatric contact was in 2004 for depression at an outpatient clinic. Most recent outpatient psychiatric care was provided three months ago at the [facility] in [place]. During previous detox admission in september 2017 patient stated 2017 was her most recent OPD. Patient is on methadone maintenance of 70mg daily at [facility]. She receives refill from her primary care physician. Most recent prescription of lexapro and amitriptyline was sent to patient's pharmacy in October of 2017. Patient denies h/o suicide attempt. Physical/Sexual Abuse/Trauma History: denies. Mental Status Exam - Mental Status Exam Alert and Oriented to: Time, Place, Person Cognitive Function: Good Patient Appearance: Well Groomed Mood: Euthymic Affect: Mood Congruent Patient Behavior: Appropriate, Cooperative Speech Pattern: Appropriate Voice Loudness: Normal Thought Process: Intact, Goal Oriented Thought Disorder: Not Present Hallucinations: Denies Suicidal Ideation: Denies Homicidal Ideation: Denies Insight/Judgement: Poor Sleep: Poorly Appetite: Fair Muscle strength/Tone: Normal Gait/Station: Normal Psychiatric Findings - Problem List ([place] 1, 2,3) (1) Substance induced mood disorder Current Visit: Yes Status: Acute (2) Alcohol dependence with uncomplicated withdrawal Current Visit: Yes Status: Acute (3) Opioid dependence on agonist therapy Current Visit: Yes Status: Chronic Comment: On Methadone 70 mg qd, dose pending verification (4) Substance-induced sleep disorder Current Visit: Yes Status: Acute (5) Mood disorder Current Visit: Yes Status: Chronic (6) Cocaine dependence Current Visit: No Status: Chronic - Initial Treatment Plan Initial Treatment Plan: Psychoeducation provided. Detoxification in progress. Will order lexapro 20mg + trazodone 50mg qhs. (Pt refusing to accept amitriptyline) Benefits and side effects discussed. Verbal consent given.
[2017-11-14] MEDS: ESCITALOPRAM OXALATE 20 MG TABLET (FP) PO SCH (14:32)
--- NOTE | 2017-11-14 22:20 | EKG ---
Test Reason : Blood Pressure : / mmHG Vent. Rate : 082 BPM Atrial Rate : 082 BPM P-R Int : 144 ms QRS Dur : 088 ms QT Int : 396 ms P-R-T Axes : 062 068 062 degrees QTc Int : 462 ms NORMAL SINUS RHYTHM NORMAL ECG WHEN COMPARED WITH ECG OF 20-SEP-2017 13:49, NO SIGNIFICANT CHANGE WAS FOUND Confirmed by ALICE JEONG MD ([id number]) on 11/14/2017 10:19:46 PM Referred By: Confirmed By:ALICE JEONG MD
[2017-11-14] MEDS: THIAMINE HCL 100 MG TABLET (FP) PO SCH (22:27)
[2017-11-14] MEDS: traZODone HCL 50 MG TABLET (FP) PO SCH (22:27)
[2017-11-15] MEDS ORDERED: METHADONE HCL 40 MG DISPERSABLE TABLET ONE (05:03)
[2017-11-15] MEDS ORDERED: METHADONE HCL 10 MG TABLET ONE (05:04)
[2017-11-15] MEDS: chlordiazePOXIDE HCL 25 MG CAPSULE PO SCH ×3 (05:32→17:26)
[2017-11-15] MEDS: METHADONE 40 MG, METHADONE 30 MG PO SCH (05:32)
[2017-11-15] MEDS: ESCITALOPRAM OXALATE 20 MG TABLET (FP) PO SCH (10:17)
[2017-11-15] MEDS: NICOTINE 14 MG/24 HOURS TOPICAL PATCH TD SCH (10:17)
[2017-11-15] MEDS: PRENATAL VITAMINS W/ FOLIC ACID TABLET (FP) PO SCH (10:17)
--- NOTE | 2017-11-15 13:46 | PN ---
S CIWA - CIWA Score Nausea/Vomitin-No Nausea/No Vomiting Muscle Tremors: 2 Anxiety: 1-Mildly Anxious Agitation: 1-Slight > Activity Paroxysmal Sweats: No Perspiration Orientation: 0-Oriented Tacttile Disturbances: 0-None Auditory Disturbances: 0-None Visual Disturbances: 0-None Headache: 1-Very Mild CIWA-Ar Total Score: 5 BHS Progress Note (SOAP) Subjective: PATIENT MILDLY ANXIOUS, PACING ON UNIT. C/O MILD SHAKES Objective: 11/15/17 13:43 Vital Signs Temperature 97.9 F 11/15/17 09:34 Pulse Rate 71 11/15/17 09:34 Respiratory Rate 18 11/15/17 09:34 Blood Pressure 116/78 11/15/17 09:34 O2 Sat by Pulse Oximetry (%) Laboratory Tests 11/14/17 11/14/17 11/14/17 07:00 07:00 07:00 WBC 4.1 RBC 4.30 Hgb 12.1 Hct 38.5 MCV 89.6 MCH 28.2 MCHC 31.5 L RDW 15.5 Plt Count 212 MPV 8.4 Sodium 140 Potassium 4.9 Chloride 100 Carbon Dioxide 34 H Anion Gap 5 L BUN 15 Creatinine 0.6 Creat Clearance w eGFR > 60 Random Glucose 79 Calcium 9.8 Total Bilirubin 0.4 AST 29 ALT 34 Alkaline Phosphatase 105 Total Protein 7.6 Albumin 3.7 Urine Color Urine Appearance Urine pH Ur Specific [place] Urine Protein Urine Glucose (UA) Urine Ketones Urine Blood Urine Nitrite Urine Bilirubin Urine Urobilinogen Ur Leukocyte Esterase RPR Titer Nonreactive 11/14/17 07:00 WBC RBC Hgb Hct MCV MCH MCHC RDW Plt Count MPV Sodium Potassium Chloride Carbon Dioxide Anion Gap BUN Creatinine Creat Clearance w eGFR Random Glucose Calcium Total Bilirubin AST ALT Alkaline Phosphatase Total Protein Albumin Urine Color Yellow Urine Appearance Clear Urine pH 7.0 Ur Specific [place] 1.019 Urine Protein Negative Urine Glucose (UA) Negative Urine Ketones Negative Urine Blood Negative Urine Nitrite Negative Urine Bilirubin Negative Urine Urobilinogen Negative Ur Leukocyte Esterase Negative RPR Titer ALERT AND ORIENTED SKIN WARM AND DRY AMB AD SALONI EXT MILD TREMORS Assessment: 11/15/17 13:45 WITHDRAWAL SYNDROME Plan: DETOX CONTINUED ENSURE 120ML PO BID CONTINUE TO MONITOR
[2017-11-15] MEDS: traZODone HCL 50 MG TABLET (FP) PO SCH (22:28)
[2017-11-15] MEDS: chlordiazePOXIDE 5 MG CAPSULE PO SCH (22:28)
[2017-11-15] MEDS: THIAMINE HCL 100 MG TABLET (FP) PO SCH (22:28)
[2017-11-16] MEDS ORDERED: METHADONE HCL 10 MG TABLET ONE (05:35)
[2017-11-16] MEDS ORDERED: METHADONE HCL 40 MG DISPERSABLE TABLET ONE (05:35)
[2017-11-16] MEDS: METHADONE 40 MG, METHADONE 30 MG PO SCH (05:53)
[2017-11-16] MEDS: chlordiazePOXIDE 5 MG CAPSULE PO SCH ×3 (05:53→17:15)
[2017-11-16] MEDS: PRENATAL VITAMINS W/ FOLIC ACID TABLET (FP) PO SCH (10:08)
[2017-11-16] MEDS: ESCITALOPRAM OXALATE 20 MG TABLET (FP) PO SCH (10:09)
[2017-11-16] MEDS: NICOTINE 14 MG/24 HOURS TOPICAL PATCH TD SCH (10:11)
--- NOTE | 2017-11-16 13:47 | PN ---
BHS Progress Note Note: PATIENT FEELS WELL. MILDLY ANXIOUS. Vital Signs Temperature 99.0 F 11/16/17 10:42 Pulse Rate 78 11/16/17 10:42 Respiratory Rate 18 11/16/17 10:42 Blood Pressure 96/76 11/16/17 10:42 O2 Sat by Pulse Oximetry (%) Laboratory Tests 11/14/17 11/14/17 11/14/17 07:00 07:00 07:00 WBC 4.1 RBC 4.30 Hgb 12.1 Hct 38.5 MCV 89.6 MCH 28.2 MCHC 31.5 L RDW 15.5 Plt Count 212 MPV 8.4 Sodium 140 Potassium 4.9 Chloride 100 Carbon Dioxide 34 H Anion Gap 5 L BUN 15 Creatinine 0.6 Creat Clearance w eGFR > 60 Random Glucose 79 Calcium 9.8 Total Bilirubin 0.4 AST 29 ALT 34 Alkaline Phosphatase 105 Total Protein 7.6 Albumin 3.7 Urine Color Urine Appearance Urine pH Ur Specific [place] Urine Protein Urine Glucose (UA) Urine Ketones Urine Blood Urine Nitrite Urine Bilirubin Urine Urobilinogen Ur Leukocyte Esterase RPR Titer Nonreactive 11/14/17 07:00 WBC RBC Hgb Hct MCV MCH MCHC RDW Plt Count MPV Sodium Potassium Chloride Carbon Dioxide Anion Gap BUN Creatinine Creat Clearance w eGFR Random Glucose Calcium Total Bilirubin AST ALT Alkaline Phosphatase Total Protein Albumin Urine Color Yellow Urine Appearance Clear Urine pH 7.0 Ur Specific [place] 1.019 Urine Protein Negative Urine Glucose (UA) Negative Urine Ketones Negative Urine Blood Negative Urine Nitrite Negative Urine Bilirubin Negative Urine Urobilinogen Negative Ur Leukocyte Esterase Negative RPR Titer ALERT AND ORIENTED SKIN WARM AND DRY AMB AD SALONI EXT NO TREMORS OR EDEMA
[2017-11-16] MEDS: traZODone HCL 50 MG TABLET (FP) PO SCH (22:33)
[2017-11-16] MEDS: chlordiazePOXIDE HCL 10 MG CAPSULE PO SCH (22:34)
[2017-11-16] MEDS: THIAMINE HCL 100 MG TABLET (FP) PO SCH (22:34)
[2017-11-16] MEDS: P-EPHED 60MG/TRIPROLIDI 2.5MG TABLET PO PRN (23:31)
[2017-11-17] MEDS ORDERED: METHADONE HCL 40 MG DISPERSABLE TABLET ONE (04:30)
[2017-11-17] MEDS ORDERED: METHADONE HCL 10 MG TABLET ONE (04:30)
[2017-11-17] MEDS: METHADONE 40 MG, METHADONE 30 MG PO SCH (05:26)
[2017-11-17] MEDS: chlordiazePOXIDE HCL 10 MG CAPSULE PO SCH ×2 (05:27→10:28)
[2017-11-17] MEDS: ESCITALOPRAM OXALATE 20 MG TABLET (FP) PO SCH (10:28)
[2017-11-17] MEDS: PRENATAL VITAMINS W/ FOLIC ACID TABLET (FP) PO SCH (10:28)
[2017-11-17] MEDS: NICOTINE 14 MG/24 HOURS TOPICAL PATCH TD SCH (10:29)
[2017-11-17 10:38] VITALS: BP 104/75; PULSE 85; TEMP 98.1
--- NOTE | 2017-11-17 11:22 | DS ---
[facility] Detox Discharge Summary Admission Date: 11/13/17 Discharge Date: 11/17/17 - History Present History: Alcohol Dependence Additional Comments: 57 years old female admitted 11/15/17 for alcohol withdrawal sx completed alcohol detox regimen tolerated well denies alcohol withdrawal sx alert oriented x 3 no acute distress aftercare [facility] - Physical Exam Results Vital Signs: Vital Signs Temperature 98.1 F 11/17/17 10:37 Pulse Rate 85 11/17/17 10:37 Respiratory Rate 18 11/17/17 10:37 Blood Pressure 104/75 11/17/17 10:37 O2 Sat by Pulse Oximetry (%) Pertinent Admission Physical Exam Findings: alcohol withdrawal sx Vital Signs Temperature 98.1 F 11/17/17 10:37 Pulse Rate 85 11/17/17 10:37 Respiratory Rate 18 11/17/17 10:37 Blood Pressure 104/75 11/17/17 10:37 O2 Sat by Pulse Oximetry (%) Laboratory Last Values WBC 4.1 K/mm3 (4.0-10.0) 11/14/17 07:00 RBC 4.30 M/mm3 (3.60-5.2) 11/14/17 07:00 Hgb 12.1 GM/dL (10.7-15.3) 11/14/17 07:00 Hct 38.5 % (32.4-45.2) 11/14/17 07:00 MCV 89.6 fl (80-96) 11/14/17 07:00 MCH 28.2 pg (25.7-33.7) 11/14/17 07:00 MCHC 31.5 g/dl (32.0-36.0) L 11/14/17 07:00 RDW 15.5 % (11.6-15.6) 11/14/17 07:00 Plt Count 212 K/MM3 (134-434) 11/14/17 07:00 MPV 8.4 fl (7.5-11.1) 11/14/17 07:00 Sodium 140 mmol/L (136-145) 11/14/17 07:00 Potassium 4.9 mmol/L (3.5-5.1) 11/14/17 07:00 Chloride 100 mmol/L (98-107) 11/14/17 07:00 Carbon Dioxide 34 mmol/L (21-32) H 10/04/18 07:00 Anion Gap 5 MMOL/L (8-16) L 11/14/17 07:00 BUN 15 mg/dL (7-18) 11/14/17 07:00 Creatinine 0.6 mg/dL (0.55-1.3) 11/14/17 07:00 Creat Clearance w eGFR > 60 (>60) 11/14/17 07:00 Random Glucose 79 mg/dL (74-106) 11/14/17 07:00 Calcium 9.8 mg/dL (8.5-10.1) 11/14/17 07:00 Total Bilirubin 0.4 mg/dL (0.2-1) 11/14/17 07:00 AST 29 U/L (15-37) 11/14/17 07:00 ALT 34 U/L (13-61) 11/14/17 07:00 Alkaline Phosphatase 105 U/L (45-117) 11/14/17 07:00 Total Protein 7.6 g/dl (6.4-8.2) 11/14/17 07:00 Albumin 3.7 g/dl (3.4-5.0) 11/14/17 07:00 Urine Color Yellow 11/14/17 07:00 Urine Appearance Clear 11/14/17 07:00 Urine pH 7.0 (5.0-8.0) 11/14/17 07:00 Ur Specific [place] 1.019 (1.001-1.035) 11/14/17 07:00 Urine Protein Negative (NEGATIVE) 11/14/17 07:00 Urine Glucose (UA) Negative (NEGATIVE) 11/14/17 07:00 Urine Ketones Negative (NEGATIVE) 11/14/17 07:00 Urine Blood Negative (NEGATIVE) 11/14/17 07:00 Urine Nitrite Negative (NEGATIVE) 11/14/17 07:00 Urine Bilirubin Negative (<2.0 mg/dL) 11/14/17 07:00 Urine Urobilinogen Negative mg/dL (0.2-1.0) 11/14/17 07:00 Ur Leukocyte Esterase Negative (NEGATIVE) 11/14/17 07:00 RPR Titer Nonreactive (NONREACTIVE) 11/14/17 07:00 lab noted - Treatment Hospital Course: Detox Protocol Followed Patient has Accepted a Rehab Referral to: [facility] - Medication Discharge Medications: Ambulatory Orders Methadone [Dolophine -] 70 mg PO DAILY 05/19/17 Escitalopram Oxalate [Lexapro -] 20 mg PO DAILY #30 tablet 08/22/17 traZODone HCL [Trazodone HCl] 50 mg PO HS 09/20/17 - Diagnosis (1) Alcohol dependence with uncomplicated withdrawal Status: Acute (2) Substance induced mood disorder Status: Suspected (3) Weight loss Status: Acute (4) HIV (human immunodeficiency virus infection) Status: Chronic (5) Methadone maintenance therapy patient Status: Chronic (6) Nicotine dependence Status: Acute Qualifiers: Nicotine product type: cigarettes Substance use status: in withdrawal Qualified Code(s): F17.213 - Nicotine dependence, cigarettes, with withdrawal - AMA Did Patient Leave Against Medical Advice: No
== END 2017-11-17 11:00 | disposition other institution (70) | DRG 773 ==
LOC: YASAS 14:59 → Y6N 17:43
PROC: HZ2ZZZZ Detoxification Services for Substance Abuse Treatment (ICD-10-PCS; principal; 2017-11-13)
DX: F10.230 Alcohol dependence with withdrawal, uncomplicated (principal); F14.20 Cocaine dependence, uncomplicated; F11.20 Opioid dependence, uncomplicated; F17.213 Nicotine dependence, cigarettes, with withdrawal; F19.282 Other psychoactive substance dependence with psychoactive substance-induced sleep disorder; F19.24 Other psychoactive substance dependence with psychoactive substance-induced mood disorder; F31.9 Bipolar disorder, unspecified; F39 Unspecified mood [affective] disorder; Z21 Asymptomatic human immunodeficiency virus [HIV] infection status; D50.9 Iron deficiency anemia, unspecified; R63.4 Abnormal weight loss; Z68.21 Body mass index [BMI] 21.0-21.9, adult; Z87.81 Personal history of (healed) traumatic fracture
CPT/HCPCS: 36415; 80053; 81003; 85027; 86593; 93005; 93010

== ENCOUNTER 2017-11-17 11:09 | Inpatient (IN) | payer OTHER ==
--- NOTE | 2017-11-17 11:23 | HP ---
[facility] Rehab Assess/Revision - Admission History Admitted to Rehab from: [facility] Date of Admission to Rehab: 11/17/17 - Vital signs Vital Signs: Vital Signs Period Temp Pulse Resp BP Sys/Castaneda Pulse Ox Last 24 Hr 98.1 F 67 18 108/73 - Findings Detox History & Physical reviewed: Yes Concur with findings: Yes Comments/Additional Findings: transferred from detox to rehab admission as per protocol Inpatient Rehab Admission - Initial Determination Are CD services needed?: Yes Free of communicable disease: Yes Not in need of hospitalization: Yes - Rehab Admission Criteria Previous failed treatment: Yes Poor recovery environment: Yes Comorbidities: Yes Lacks judgement: No Patient is meeting Inpatient Rehab admission criteria:: Yes
[2017-11-17 11:24] VITALS: BMI 22.8
[2017-11-17] MEDS ORDERED: MAGNESIUM CITRATE 300 ML BOTTLE PO PRN (14:04)
[2017-11-17] MEDS ORDERED: MENTHOL/PHENOL 1 EACH UD MM PRN (14:04)
[2017-11-17] MEDS ORDERED: LOPERAMIDE HCL 2 MG CAPSULE PO PRN (14:04)
[2017-11-17] MEDS ORDERED: P-EPHED 60MG/TRIPROLIDI 2.5MG TABLET PO PRN (14:04)
[2017-11-17] MEDS ORDERED: NICOTINE POLACRILEX 2 MG GUM BUC PRN (14:04)
[2017-11-17] MEDS ORDERED: MAGNESIUM HYDROX 2400MG/30ML ORAL SUSPENSION 30 ML CUP PO PRN (14:04)
[2017-11-17] MEDS ORDERED: MAG HYDROX/AL HYDROX/SIMETH 30 ML UNIT-DOSE CUP PO PRN (14:04)
[2017-11-17] MEDS ORDERED: IBUPROFEN 400 MG TABLET (FP) PO PRN (14:04)
[2017-11-17] MEDS ORDERED: NICOTINE 14 MG/24 HOURS TOPICAL PATCH TD PRN (14:04)
[2017-11-17] MEDS ORDERED: guaiFENesin/D-METHORPHAN HB 10 ML UNIT-DOSE CUPS PO PRN (14:04)
[2017-11-17] MEDS ORDERED: ACETAMINOPHEN 325 MG TABLET (FP) PO PRN (14:04)
[2017-11-17] MEDS: THIAMINE HCL 100 MG TABLET (FP) PO SCH (21:04)
[2017-11-17] MEDS: traZODone HCL 50 MG TABLET (FP) PO SCH (21:04)
[2017-11-17] MEDS ORDERED: MELATONIN 5 MG TABLETS PO PRN (22:00)
[2017-11-18] MEDS: PRENATAL VITAMINS W/ FOLIC ACID TABLET (FP) PO SCH (09:30)
[2017-11-18] MEDS: ESCITALOPRAM OXALATE 20 MG TABLET (FP) PO SCH (09:30)
[2017-11-18] MEDS ORDERED: METHADONE HCL 40 MG DISPERSABLE TABLET PO SCH (10:00)
[2017-11-18] MEDS ORDERED: METHADONE HCL 10 MG TABLET ONE (10:30)
[2017-11-18] MEDS ORDERED: METHADONE HCL 40 MG DISPERSABLE TABLET ONE (10:30)
[2017-11-18] MEDS: METHADONE 40 MG, METHADONE 30 MG PO SCH (10:32)
--- NOTE | 2017-11-18 11:47 | HP ---
Psychiatrist Admission - Data Date of interview: 11/18/17 Admission source: [address] [place] [address] Identifying data: Jill cuello the first admission to [address] [place] [address] rehabilitation for this single H mother of 2 sons,resides with familiy, supported by [facility]. Medical History: Significant for HIV+. Vital Signs: Vital Signs - 24 hr 11/18/17 11/18/17 11/18/17 00:30 03:30 06:52 Temperature 97.7 F Pulse Rate 70 Respiratory 16 16 16 Rate Blood Pressure 99/67 Allergies/Adverse Reactions: Allergies Allergy/AdvReac Type Severity Reaction Status Date / Time No Known Allergies Allergy Verified 09/20/17 11:06 Date of last physical exam: 11/20/17 Concur with the findings of this exam: Yes - Substance Abuse/Tx History Hx Alcohol Use: Yes (drinking since 17 yo,vodka,beer) Hx Substance Use: Yes (cocaine since 20 yp,heroin since 20 1 bag daily,MMT 70 mg ) Substance Use Type: Alcohol, Cocaine, Opiates Hx Substance Use Treatment: Yes (this is the first inpatient group home ) Mental Status Exam - Mental Status Exam Alert and Oriented to: Time, Place, Person Cognitive Function: Grossly Intact Patient Appearance: Unkempt Mood: Anxious Affect: Labile Patient Behavior: Cooperative Speech Pattern: Clear Voice Loudness: Normal Thought Process: Goal Oriented Thought Disorder: Not Present Hallucinations: Denies Suicidal Ideation: Denies Homicidal Ideation: Denies Insight/Judgement: Fair Sleep: Fair Appetite: Fair Muscle strength/Tone: Normal Gait/Station: Normal Psychiatric Findings - Problem List ([place] 1, 2,3) (1) Nicotine dependence Current Visit: Yes Status: Chronic Qualifiers: Nicotine product type: cigarettes Substance use status: in withdrawal Qualified Code(s): F17.213 - Nicotine dependence, cigarettes, with withdrawal (2) Opiate dependence Current Visit: Yes Status: Chronic (3) Cocaine dependence Current Visit: Yes Status: Chronic (4) Bipolar disorder Current Visit: Yes Status: Chronic (5) Opioid dependence on agonist therapy Current Visit: Yes Status: Chronic Comment: On Methadone 70 mg qd, dose pending verification (6) HIV (human immunodeficiency virus infection) Current Visit: Yes Status: Acute - Initial Treatment Plan Initial Treatment Plan: Continue current medications as per plan.
[2017-11-18] MEDS ORDERED: hydrOXYzine PAMOATE 50 MG CAPSULE (FP) PO PRN (11:49)
[2017-11-18] MEDS: traZODone HCL 50 MG TABLET (FP) PO SCH (21:15)
[2017-11-18] MEDS: THIAMINE HCL 100 MG TABLET (FP) PO SCH (21:15)
[2017-11-19 06:45] VITALS: BP 107/71; PULSE 71; TEMP 97.9
[2017-11-19] MEDS ORDERED: METHADONE HCL 40 MG DISPERSABLE TABLET ONE (09:08)
[2017-11-19] MEDS ORDERED: METHADONE HCL 10 MG TABLET ONE (09:08)
[2017-11-19] MEDS: PRENATAL VITAMINS W/ FOLIC ACID TABLET (FP) PO SCH (09:10)
[2017-11-19] MEDS: ESCITALOPRAM OXALATE 20 MG TABLET (FP) PO SCH (09:10)
[2017-11-19] MEDS: METHADONE 40 MG, METHADONE 30 MG PO SCH (09:10)
== END 2017-11-19 10:14 | disposition left against medical advice (07) | DRG 770 ==
LOC: YASAS 11:09 → Y3E 11:10
PROVIDERS: ADMIT Psychiatry & Neurology Psychiatry; ATTEND Psychiatry & Neurology Psychiatry
PROC: HZ42ZZZ Group Counseling for Substance Abuse Treatment, Cognitive-Behavioral (ICD-10-PCS; principal; 2017-11-17)
DX: F11.20 Opioid dependence, uncomplicated (principal); F14.20 Cocaine dependence, uncomplicated; F17.213 Nicotine dependence, cigarettes, with withdrawal; F31.9 Bipolar disorder, unspecified; Z21 Asymptomatic human immunodeficiency virus [HIV] infection status

== ENCOUNTER 2017-12-21 14:24 | Inpatient (IN) | payer OTHER ==
[2017-12-21 14:38] VITALS: BMI 23.3
--- NOTE | 2017-12-21 14:42 | HP ---
CIWA Score Nausea/Vomitin Muscle Tremors: 2 Anxiety: 2 Agitation: 2 Paroxysmal Sweats: No Perspiration Orientation: 0-Oriented Tacttile Disturbances: 1-Very Mild Itch/Numbness Auditory Disturbances: 1-Very Mild Visual Disturbances: 1-Very Mild Sensitivity Headache: 2-Mild CIWA-Ar Total Score: 13 - Admission Criteria OASAS Guidelines: Admission for Medically Managed Detox: Requires at least one of the followin. CIWA greater than 12 2. Seizures within the past 24 hours 3. Delirium tremens within the past 24 hours 4. Hallucinations within the past 24 hours 5. Acute intervention needed for co occurring medical disorder 6. Acute intervention needed for co occurring psychiatric disorder 7. Severe withdrawal that cannot be handled at a lower level of care (continued vomiting, continued diarrhea, abnormal vital signs) requiring intravenous medication and/or fluids 8. Patient presents the following: CIWA greater than 12 Admission Criteria Met: Admission criteria met Admission ROS [facility] - HPI Chief Complaint: i need help to stop drinking alcohol Allergies/Adverse Reactions: Allergies Allergy/AdvReac Type Severity Reaction Status Date / Time No Known Allergies Allergy Verified 12/21/17 15:05 History of Present Illness: this 57 years old female with alcohol dependence,seeking detox,withdrawal symptom,last detox 11/13/17 to 11/17/17 [facility] and rehab not completed on methadone maintenance 70 mgs/day,last medicated today,has bottle to take home for tomorrow bipolar and insomnia nicotine dependence weight loss no significant period of sobriety Exam Limitations: No Limitations - Ebola screening Have you traveled outside of the country in the last 21 days: No - Review of Systems Constitutional: Loss of Appetite, Malaise, Night Sweats, Changes in sleep, Weakness, Unintentional Wgt. Loss EENT: reports: Nose Congestion Respiratory: reports: No Symptoms reported Cardiac: reports: Palpitations GI: reports: Nausea, Poor Appetite, Abdominal cramping : reports: No Symptoms Reported Musculoskeletal: reports: Back Pain, Muscle Pain Integumentary: reports: Dryness Neuro: reports: Headache, Tremors Endocrine: reports: No Symptoms Reported Hematology: reports: Anemia Psychiatric: reports: No Sypmtoms Reported, Judgement Intact, Mood/Affect Appropiate, Orientated x3, Anxious (insomnia,bipolar disorder), Depressed Patient History - Patient Medical History Hx Anemia: Yes (non compliance) Hx Asthma: No Hx Chronic Obstructive Pulmonary Disease (COPD): No Hx Cancer: No Hx Cardiac Disorders: No Hx Congestive Heart Failure: No Hx Hypertension: No Hx Hypercholesterolemia: No Hx Pacemaker: No HX Cerebrovascular Accident: No Hx Seizures: No Hx Dementia: No Hx Diabetes: No Hx Gastrointestinal Disorders: No Hx Liver Disease: Yes Hx Genitourinary Disorders: No Hx Sexually Transmitted Disorders: Yes (HIV + since 2001) Hx Renal Disease (ESRD): No Hx Thyroid Disease: No Hx Human Immunodeficiency Virus (HIV): Yes (since 2001, declines medication tx) Hx Hepatitis C: No (negative at methadone maintenance program) Hx Depression: Yes Hx Suicide Attempt: No Hx Bipolar Disorder: Yes Hx Schizophrenia: No Other Medical History: no suicidal,no homicidal - Patient Surgical History Past Surgical History: No Hx Neurologic Surgery: No Hx Cataract Extraction: No Hx Cardiac Surgery: No Hx Lung Surgery: No Hx Breast Surgery: No Hx Breast Biopsy: No Hx Abdominal Surgery: No Hx Appendectomy: No Hx Cholecystectomy: No Hx Genitourinary Surgery: No Hx Section: No Hx Orthopedic Surgery: Yes (fx right hand 2018) Anesthesia Reaction: No - PPD History Previous Implant?: Yes Documented Results: Negative w/proof Implanted On Prior [facility] Admission?: Yes Date: 05/17/17 Results: 0mm PPD to be Administered?: No - Reproductive History Patient is a Female of Child Bearing Age (11 -55 yrs old): No Patient : No - Smoking Cessation Smoking history: Current every day smoker Have you smoked in the past 12 months: Yes Aproximately how many cigarettes per day: 10 Cigars Per Day: 0 Hx Chewing Tobacco Use: No Initiated information on smoking cessation: Yes 'Breaking Loose' booklet given: 12/21/17 - Substance & Tx. History Hx Alcohol Use: Yes Hx Substance Use: No Substance Use Type: Alcohol Hx Substance Use Treatment: Yes ([facility] 11/13/17 to 11/17/17) - Substances Abused Alcohol Route: Oral Frequency: Daily Amount used: 2pints of vodka Age of first use: 15 Date of Last Use: 12/21/17 Family Disease History - Family Disease History Family Disease History: Other: Father (alcohol,), Mother ( hiv) , Sister (hiv ) Admission Physical Exam [facility] - Vital Signs Vital Signs: Vital Signs Temperature 98 F 12/21/17 14:36 Pulse Rate 91 H 11/10/18 14:36 Respiratory Rate 18 12/21/17 14:36 Blood Pressure 127/72 12/21/17 14:36 O2 Sat by Pulse Oximetry (%) - Physical General Appearance: Yes: Moderate Distress, Tremorous, Irritable, Anxious HEENTM: Yes: Normal ENT Inspection, [place], Pharynx Normal Respiratory: Yes: Within Normal Limits, Lungs Clear, Normal Breath Sounds Neck: Yes: Within Normal Limits, Supple, Trachea in good position Breast: Yes: Breast Exam Deferred Cardiology: Yes: Within Normal Limits, Regular Rhythm, Regular Rate, S1, S2 Abdominal: Yes: Within Normal Limits, Normal Bowel Sounds, Non Tender, Flat, Soft Genitourinary: Yes: Within Normal Limits Back: Yes: Muscle Spasm Musculoskeletal: Yes: Back pain, Muscle Pain Extremities: Yes: Tremors 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, Fully Oriented, Alert, Motor Strength 5/5 Integumentary: Yes: Dry Lymphatic: Yes: Within Normal Limits - Diagnostic (1) Alcohol dependence with uncomplicated withdrawal Current Visit: No Status: Acute (2) Weight loss Current Visit: No Status: Acute (3) Alcohol dependence with intoxication Current Visit: No Status: Chronic Qualifiers: Complication of substance-induced condition: uncomplicated Qualified Code(s ): F10.220 - Alcohol dependence with intoxication, uncomplicated (4) Bipolar disorder Current Visit: No Status: Chronic (5) HIV (human immunodeficiency virus infection) Current Visit: No Status: Chronic Comment: Patient reports she does not want treatment (6) Methadone maintenance therapy patient Current Visit: No Status: Chronic Comment: 70 mg daily (7) Nicotine dependence Current Visit: No Status: Chronic Qualifiers: Nicotine product type: cigarettes Substance use status: in withdrawal Qualified Code(s): F17.213 - Nicotine dependence, cigarettes, with withdrawal Cleared for Admission [facility] - Detox or Rehab [facility] Level of Care: Medically Managed Detox Regimen/Protocol: Librium [facility] Breath Alcohol Content Breath Alcohol Content: 0.310
[2017-12-21] MEDS ORDERED: P-EPHED 60MG/TRIPROLIDI 2.5MG TABLET PO PRN (15:34)
[2017-12-21] MEDS ORDERED: guaiFENesin/D-METHORPHAN HB 10 ML UNIT-DOSE CUPS PO PRN (15:34)
[2017-12-21] MEDS ORDERED: MENTHOL/PHENOL 1 EACH UD MM PRN (15:34)
[2017-12-21] MEDS ORDERED: MAGNESIUM CITRATE 300 ML BOTTLE PO PRN (15:34)
[2017-12-21] MEDS ORDERED: ACETAMINOPHEN 325 MG TABLET (FP) PO PRN (15:34)
[2017-12-21] MEDS ORDERED: MAG HYDROX/AL HYDROX/SIMETH 30 ML UNIT-DOSE CUP PO PRN (15:34)
[2017-12-21] MEDS ORDERED: hydrOXYzine PAMOATE 25 MG CAPSULE (FP) PO PRN (15:34)
[2017-12-21] MEDS ORDERED: IBUPROFEN 400 MG TABLET (FP) PO PRN (15:34)
[2017-12-21] MEDS ORDERED: MAGNESIUM HYDROX 2400MG/30ML ORAL SUSPENSION 30 ML CUP PO PRN (15:34)
[2017-12-21] MEDS ORDERED: chlordiazePOXIDE HCL 25 MG CAPSULE PO PRN (15:34)
[2017-12-21] MEDS ORDERED: LOPERAMIDE HCL 2 MG CAPSULE PO PRN (15:34)
[2017-12-21] MEDS: chlordiazePOXIDE HCL 25 MG CAPSULE PO SCH ×2 (17:41→22:13)
[2017-12-21] MEDS: NICOTINE 21 MG/24 HOURS TOPICAL PATCH TD SCH (17:45)
[2017-12-21] MEDS: THIAMINE HCL 100 MG TABLET (FP) PO SCH (22:13)
[2017-12-21] MEDS: MELATONIN 5 MG TABLETS PO PRN (22:13)
[2017-12-22 01:48] LABS: URINE APPEARANCE CLOUDY; URINE BILIRUBIN NEGATIVE (<2.0 mg/dL); URINE COLOR YELLOW; URINE GLUCOSE (UA) NEGATIVE (NEGATIVE); URINE KETONE NEGATIVE (NEGATIVE); URINE LEUK ESTERASE NEGATIVE (NEGATIVE); URINE NITRITE NEGATIVE (NEGATIVE); URINE PROTEIN NEGATIVE (NEGATIVE); URINE UROBILINOGEN NEGATIVE mg/dL (0.2-1.0)
[2017-12-22] MEDS: chlordiazePOXIDE HCL 25 MG CAPSULE PO SCH ×4 (05:54→22:39)
[2017-12-22] MEDS ORDERED: METHADONE HCL 10 MG TABLET PO ONE (06:00)
[2017-12-22] MEDS ORDERED: METHADONE 40 MG, METHADONE 30 MG PO ONE (06:45)
[2017-12-22] MEDS ORDERED: METHADONE HCL 40 MG DISPERSABLE TABLET ONE (06:58)
[2017-12-22] MEDS ORDERED: METHADONE HCL 10 MG TABLET ONE (06:58)
[2017-12-22] MEDS: NICOTINE 21 MG/24 HOURS TOPICAL PATCH TD SCH (10:32)
[2017-12-22] MEDS: PRENATAL VITAMINS W/ FOLIC ACID TABLET (FP) PO SCH (10:32)
[2017-12-22 10:53] LABS: HEMOGLOBIN 12.3 GM/dL (10.7-15.3); MCH 28.2 pg (25.7-33.7); MCHC 31.6 g/dl (32.0-36.0); MEAN CELL VOLUME 89.5 fl (80-96); MEAN PLT VOLUME 8.2 fl (7.5-11.1); PLATELET COUNT 208 K/MM3 (134-434); RBC 4.36 M/mm3 (3.60-5.2); RDW 15.9 % (11.6-15.6); WHITE BLOOD COUNT 3.7 K/mm3 (4.0-10.0)
[2017-12-22 10:56] LABS: ALBUMIN 3.8 g/dl (3.4-5.0); ALK PHOS 125 U/L (45-117); ANION GAP 4 MMOL/L (8-16); BILIRUBIN,TOTAL 0.4 mg/dL (0.2-1); BLOOD UREA NITROGEN 17 mg/dL (7-18); CALCIUM 9.3 mg/dL (8.5-10.1); CHLORIDE 100 mmol/L (98-107); CO2 35 mmol/L (21-32); CREATININE 0.7 mg/dL (0.55-1.3); GLUCOSE,RANDOM 89 mg/dL (74-106); POTASSIUM 4.5 mmol/L (3.5-5.1); SGOT/AST 39 U/L (15-37); SGPT/ALT 38 U/L (13-61); SODIUM 138 mmol/L (136-145); TOT PROT 7.5 g/dl (6.4-8.2)
--- NOTE | 2017-12-22 15:03 | PN ---
[facility] CIWA - CIWA Score Nausea/Vomitin-Mild Nausea/No Vomiting Muscle Tremors: 2 Anxiety: 2 Agitation: 3 Paroxysmal Sweats: 1-Minimal Palms Moist Orientation: 1-Uncertain about Date Tacttile Disturbances: 0-None Auditory Disturbances: 0-None Visual Disturbances: 0-None Headache: 0-None Present CIWA-Ar Total Score: 10 S Progress Note (SOAP) Subjective: 8th admission for alcohol withdrawal sx mostly weekend admission AMA from rehab +HIV but not taking medication stated that she has ID follow up routinely for virus load patient is in methadone program of 70 mg po daily Objective: 12/22/17 15:06 Vital Signs Temperature 98.0 F 12/22/17 14:22 Pulse Rate 77 12/22/17 14:22 Respiratory Rate 16 12/22/17 14:22 Blood Pressure 126/81 12/22/17 14:22 O2 Sat by Pulse Oximetry (%) Laboratory Last Values WBC 3.7 K/mm3 (4.0-10.0) L 12/22/17 07:30 RBC 4.36 M/mm3 (3.60-5.2) 12/22/17 07:30 Hgb 12.3 GM/dL (10.7-15.3) 12/22/17 07:30 Hct 39.0 % (32.4-45.2) 12/22/17 07:30 MCV 89.5 fl (80-96) 12/22/17 07:30 MCH 28.2 pg (25.7-33.7) 12/22/17 07:30 MCHC 31.6 g/dl (32.0-36.0) L 12/22/17 07:30 RDW 15.9 % (11.6-15.6) H 12/22/17 07:30 Plt Count 208 K/MM3 (134-434) 12/22/17 07:30 MPV 8.2 fl (7.5-11.1) 12/22/17 07:30 Sodium 138 mmol/L (136-145) 12/22/17 07:30 Potassium 4.5 mmol/L (3.5-5.1) 12/22/17 07:30 Chloride 100 mmol/L (98-107) 12/22/17 07:30 Carbon Dioxide 35 mmol/L (21-32) H 12/22/17 07:30 Anion Gap 4 MMOL/L (8-16) L 12/22/17 07:30 BUN 17 mg/dL (7-18) 12/22/17 07:30 Creatinine 0.7 mg/dL (0.55-1.3) 12/22/17 07:30 Creat Clearance w eGFR > 60 (>60) 12/22/17 07:30 Random Glucose 89 mg/dL (74-106) 12/22/17 07:30 Calcium 9.3 mg/dL (8.5-10.1) 12/22/17 07:30 Total Bilirubin 0.4 mg/dL (0.2-1) 12/22/17 07:30 AST 39 U/L (15-37) H 12/22/17 07:30 ALT 38 U/L (13-61) 12/22/17 07:30 Alkaline Phosphatase 125 U/L (45-117) H 12/22/17 07:30 Total Protein 7.5 g/dl (6.4-8.2) 12/22/17 07:30 Albumin 3.8 g/dl (3.4-5.0) 12/22/17 07:30 Urine Color Yellow 12/21/17 23:31 Urine Appearance Cloudy 12/21/17 23:31 Urine pH 7.0 (5.0-8.0) 12/21/17 23:31 Ur Specific [place] 1.016 (1.010-1.035) 12/21/17 23:31 Urine Protein Negative (NEGATIVE) 12/21/17 23:31 Urine Glucose (UA) Negative (NEGATIVE) 12/21/17 23:31 Urine Ketones Negative (NEGATIVE) 12/21/17 23:31 Urine Blood Negative (NEGATIVE) 12/21/17 23:31 Urine Nitrite Negative (NEGATIVE) 12/21/17 23:31 Urine Bilirubin Negative (<2.0 mg/dL) 12/21/17 23:31 Urine Urobilinogen Negative mg/dL (0.2-1.0) 12/21/17 23:31 Ur Leukocyte Esterase Negative (NEGATIVE) 12/21/17 23:31 RPR Titer Nonreactive (NONREACTIVE) 12/22/17 07:30 lab noted Assessment: 12/22/17 15:06 withdrawal sx Plan: continue detox
--- NOTE | 2017-12-22 19:31 | EKG ---
Test Reason : Blood Pressure : / mmHG Vent. Rate : 085 BPM Atrial Rate : 085 BPM P-R Int : 146 ms QRS Dur : 086 ms QT Int : 372 ms P-R-T Axes : 067 064 060 degrees QTc Int : 442 ms NORMAL SINUS RHYTHM NORMAL ECG WHEN COMPARED WITH ECG OF 13-NOV-2017 18:03, NO SIGNIFICANT CHANGE WAS FOUND Confirmed by JATINDER HERNANDEZ MD ([id number]) on 12/22/2017 7:31:32 PM Referred By: Nikki Fried Confirmed By:JATINDER HERNANDEZ MD
[2017-12-22] MEDS: THIAMINE HCL 100 MG TABLET (FP) PO SCH (22:39)
[2017-12-22] MEDS: MELATONIN 5 MG TABLETS PO PRN (22:39)
[2017-12-23] MEDS: chlordiazePOXIDE HCL 25 MG CAPSULE PO SCH ×2 (05:39→10:34)
[2017-12-23 09:51] VITALS: BP 117/84; PULSE 76; TEMP 98.2
[2017-12-23] MEDS: PRENATAL VITAMINS W/ FOLIC ACID TABLET (FP) PO SCH (10:34)
[2017-12-23] MEDS: NICOTINE 21 MG/24 HOURS TOPICAL PATCH TD SCH (10:35)
--- NOTE | 2017-12-23 10:42 | PN ---
[facility] CIWA - CIWA Score Nausea/Vomitin-No Nausea/No Vomiting Muscle Tremors: 3 Anxiety: 3 Agitation: 3 Paroxysmal Sweats: 3 Orientation: 0-Oriented Tacttile Disturbances: 0-None Auditory Disturbances: 0-None Visual Disturbances: 0-None Headache: 0-None Present CIWA-Ar Total Score: 12 [facility] Progress Note (SOAP) Subjective: agitation sweats chills body aches Objective: 12/23/17 10:41 Vital Signs Temperature 98.2 F 12/23/17 09:50 Pulse Rate 76 12/23/17 09:50 Respiratory Rate 16 12/23/17 09:50 Blood Pressure 117/84 12/23/17 09:50 O2 Sat by Pulse Oximetry (%) Laboratory Tests 12/21/17 12/22/17 12/22/17 23:31 07:30 07:30 WBC 3.7 L RBC 4.36 Hgb 12.3 Hct 39.0 MCV 89.5 MCH 28.2 MCHC 31.6 L RDW 15.9 H Plt Count 208 MPV 8.2 Sodium 138 Potassium 4.5 Chloride 100 Carbon Dioxide 35 H Anion Gap 4 L BUN 17 Creatinine 0.7 Creat Clearance w eGFR > 60 Random Glucose 89 Calcium 9.3 Total Bilirubin 0.4 AST 39 H ALT 38 Alkaline Phosphatase 125 H Total Protein 7.5 Albumin 3.8 Urine Color Yellow Urine Appearance Cloudy Urine pH 7.0 Ur Specific [place] 1.016 Urine Protein Negative Urine Glucose (UA) Negative Urine Ketones Negative Urine Blood Negative Urine Nitrite Negative Urine Bilirubin Negative Urine Urobilinogen Negative Ur Leukocyte Esterase Negative RPR Titer 12/22/17 07:30 WBC RBC Hgb Hct MCV MCH MCHC RDW Plt Count MPV Sodium Potassium Chloride Carbon Dioxide Anion Gap BUN Creatinine Creat Clearance w eGFR Random Glucose Calcium Total Bilirubin AST ALT Alkaline Phosphatase Total Protein Albumin Urine Color Urine Appearance Urine pH Ur Specific [place] Urine Protein Urine Glucose (UA) Urine Ketones Urine Blood Urine Nitrite Urine Bilirubin Urine Urobilinogen Ur Leukocyte Esterase RPR Titer Nonreactive aaox3 ambulating no acute distress Assessment: 12/23/17 10:41 withdrawal sx Plan: continue detox increase fluids d/c in am
--- NOTE | 2017-12-23 15:29 | DS ---
[facility] Detox Discharge Summary Admission Date: 12/21/17 - History Present History: Alcohol Dependence - Physical Exam Results Vital Signs: Vital Signs Temperature 98.2 F 12/23/17 09:50 Pulse Rate 76 12/23/17 09:50 Respiratory Rate 16 12/23/17 09:50 Blood Pressure 117/84 12/23/17 09:50 O2 Sat by Pulse Oximetry (%) - Treatment Hospital Course: Responded well, Discharged Condition Good - Medication Discharge Medications: Ambulatory Orders Methadone [Dolophine -] 70 mg PO DAILY 05/19/17 Escitalopram Oxalate [Lexapro -] 20 mg PO DAILY #30 tablet 08/22/17 traZODone HCL [Trazodone HCl] 50 mg PO HS 09/20/17 - AMA Did Patient Leave Against Medical Advice: Yes (going home then to her MMTP program)
--- NOTE | 2017-12-23 15:29 | PN ---
[facility] Progress Note Note: pt is on a MMTP program last medicated at her program on saturday with a take home bottle for saturday. Pt was pending methadone verification and RN tried to call her program several times with no avail. Pt signed out today and will be going to her program for reinstatement. Pt states she felt fine no s/s of withdrawal at this time. Pt also states her PCP ordered librium for her in the past and has medication at home if she needed to take librium. Pt signed out AMA.
[2017-12-23] MEDS ORDERED: chlordiazePOXIDE 5 MG CAPSULE PO SCH (17:00)
[2017-12-24] MEDS ORDERED: chlordiazePOXIDE HCL 10 MG CAPSULE PO SCH (17:00)
== END 2017-12-23 11:31 | disposition left against medical advice (07) | DRG 770 ==
LOC: YASAS 14:24 → Y6N 15:30
PROC: HZ2ZZZZ Detoxification Services for Substance Abuse Treatment (ICD-10-PCS; principal; 2017-12-21)
DX: F10.230 Alcohol dependence with withdrawal, uncomplicated (principal); F11.20 Opioid dependence, uncomplicated; F17.210 Nicotine dependence, cigarettes, uncomplicated; F31.9 Bipolar disorder, unspecified; G47.00 Insomnia, unspecified; Z21 Asymptomatic human immunodeficiency virus [HIV] infection status; D64.9 Anemia, unspecified; R63.4 Abnormal weight loss; Z68.23 Body mass index [BMI] 23.0-23.9, adult
CPT/HCPCS: 36415; 80053; 81003; 85027; 86593; 93005; 93010

== ENCOUNTER 2018-02-21 10:14 | Inpatient (IN) | payer OTHER ==
[2018-02-21 12:22] VITALS: BMI 21.9
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
[2018-02-21] MEDS ORDERED: chlordiazePOXIDE HCL 25 MG CAPSULE PO PRN (14:30)
[2018-02-21] MEDS ORDERED: MAGNESIUM CITRATE 300 ML BOTTLE PO PRN (14:30)
[2018-02-21] MEDS ORDERED: MAGNESIUM HYDROX 2400MG/30ML ORAL SUSPENSION 30 ML CUP PO PRN (14:30)
[2018-02-21] MEDS ORDERED: MAG HYDROX/AL HYDROX/SIMETH 30 ML UNIT-DOSE CUP PO PRN (14:30)
[2018-02-21] MEDS ORDERED: P-EPHED 60MG/TRIPROLIDI 2.5MG TABLET PO PRN (14:30)
[2018-02-21] MEDS ORDERED: ACETAMINOPHEN 325 MG TABLET (FP) PO PRN (14:30)
[2018-02-21] MEDS ORDERED: guaiFENesin/D-METHORPHAN HB 10 ML UNIT-DOSE CUPS PO PRN (14:30)
[2018-02-21] MEDS ORDERED: NICOTINE POLACRILEX 2 MG GUM BUC PRN (14:30)
[2018-02-21] MEDS ORDERED: MENTHOL/PHENOL 1 EACH UD MM PRN (14:30)
[2018-02-21] MEDS ORDERED: IBUPROFEN 400 MG TABLET (FP) PO PRN (14:30)
[2018-02-21] MEDS ORDERED: ALBUTEROL SO4 0.083% IH SOL 2.5 MG/3 ML VIAL.NEB. NEB PRN (14:32)
[2018-02-21] MEDS: chlordiazePOXIDE HCL 25 MG CAPSULE PO SCH ×2 (17:44→22:05)
[2018-02-21] MEDS: AMOX TR/POT CLAV 875MG/125MG TABLETS (FP) PO SCH (17:44)
[2018-02-21] MEDS ORDERED: MELATONIN 5 MG TABLETS PO PRN (22:00)
[2018-02-21] MEDS: THIAMINE HCL 100 MG TABLET (FP) PO SCH (22:05)
[2018-02-21] MEDS: traZODone HCL 50 MG TABLET (FP) PO SCH (22:06)
[2018-02-21] MEDS: ALBUTEROL SO4 8 GM HFA INHALER IH PRN (22:08)
[2018-02-22] MEDS ORDERED: METHADONE HCL 10 MG TABLET ONE (04:06)
[2018-02-22] MEDS ORDERED: METHADONE HCL 40 MG DISPERSABLE TABLET ONE (04:07)
[2018-02-22] MEDS: METHADONE 40 MG, METHADONE 20 MG PO SCH (05:55)
[2018-02-22] MEDS: chlordiazePOXIDE HCL 25 MG CAPSULE PO SCH ×4 (05:56→22:04)
[2018-02-22] MEDS ORDERED: METHADONE HCL 10 MG TABLET PO SCH (06:00)
[2018-02-22] MEDS: AMOX TR/POT CLAV 875MG/125MG TABLETS (FP) PO SCH ×2 (07:22→17:50)
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
[2018-02-22] MEDS: PRENATAL VITAMINS W/ FOLIC ACID TABLET (FP) PO SCH (10:34)
[2018-02-22 11:05] LABS: HEMATOCRIT 40.2 % (32.4-45.2); HEMOGLOBIN 12.5 GM/dL (10.7-15.3); MCH 28.3 pg (25.7-33.7); MCHC 31.2 g/dl (32.0-36.0); MEAN CELL VOLUME 90.9 fl (80-96); MEAN PLT VOLUME 8.8 fl (7.5-11.1); PLATELET COUNT 214 K/MM3 (134-434); RBC 4.43 M/mm3 (3.60-5.2); RDW 16.3 % (11.6-15.6)
[2018-02-22 11:06] LABS: ALBUMIN 4.5 g/dl (3.4-5.0); ALK PHOS 140 U/L (45-117); ANION GAP 9 MMOL/L (8-16); BILIRUBIN,TOTAL 0.4 mg/dL (0.2-1); BLOOD UREA NITROGEN 12 mg/dL (7-18); CALCIUM 9.6 mg/dL (8.5-10.1); CHLORIDE 105 mmol/L (98-107); CO2 28 mmol/L (21-32); CREATININE 0.7 mg/dL (0.55-1.3); GLUCOSE,RANDOM 89 mg/dL (74-106); POTASSIUM 4.1 mmol/L (3.5-5.1); SGOT/AST 38 U/L (15-37); SGPT/ALT 39 U/L (13-61); SODIUM 142 mmol/L (136-145); TOT PROT 8.2 g/dl (6.4-8.2)
[2018-02-22] MEDS: ESCITALOPRAM OXALATE 20 MG TABLET (FP) PO SCH (12:36)
[2018-02-22] MEDS: NICOTINE 14 MG/24 HOURS TOPICAL PATCH TD SCH (13:21)
--- NOTE | 2018-02-22 16:13 | PN ---
[facility] CIWA - CIWA Score Nausea/Vomitin-No Nausea/No Vomiting Muscle Tremors: None Anxiety: 2 Agitation: 0-Normal Activity Paroxysmal Sweats: 3 Orientation: 2-Disoriented Date<2 days Tacttile Disturbances: 0-None Auditory Disturbances: 1-Very Mild Visual Disturbances: 3-Moderate Sensitivity Headache: 0-None Present CIWA-Ar Total Score: 11 S Progress Note (SOAP) Subjective: Constipation, Body Aches, Sweating. Objective: PATIENT A & O X 2 (UNCERTAIN ABOUT CURRENT DAY / DATE). PATIENT OBSERVED AMBULATING ON UNIT. IN NO ACUTE DISTRESS. 02/22/18 16:11 Vital Signs Temperature 97.9 F 02/22/18 13:56 Pulse Rate 69 02/22/18 15:30 Respiratory Rate 18 02/22/18 15:30 Blood Pressure 123/76 02/22/18 13:56 O2 Sat by Pulse Oximetry (%) Laboratory Tests 02/22/18 02/22/18 05:40 05:40 WBC 5.0 RBC 4.43 Hgb 12.5 Hct 40.2 MCV 90.9 MCH 28.3 MCHC 31.2 L RDW 16.3 H Plt Count 214 MPV 8.8 Sodium 142 Potassium 4.1 Chloride 105 Carbon Dioxide 28 Anion Gap 9 BUN 12 Creatinine 0.7 Creat Clearance w eGFR > 60 Random Glucose 89 Calcium 9.6 Total Bilirubin 0.4 AST 38 H ALT 39 Alkaline Phosphatase 140 H Total Protein 8.2 Albumin 4.5 LABS NOTED. ADMISSION RPR RESULT PENDING. 02/22/18 16:12 Assessment: 02/22/18 16:11 WITHDRAWAL SYMPTOMS. Plan: CONTINUE DETOX. INCREASE DAILY PO FLUID INTAKE. PRN MOM FOR CONSTIPATION.
[2018-02-22] MEDS: ALBUTEROL SO4 8 GM HFA INHALER IH PRN (20:40)
[2018-02-22] MEDS: traZODone HCL 50 MG TABLET (FP) PO SCH (22:04)
[2018-02-22] MEDS: THIAMINE HCL 100 MG TABLET (FP) PO SCH (22:04)
[2018-02-23] MEDS ORDERED: METHADONE HCL 40 MG DISPERSABLE TABLET ONE (04:48)
[2018-02-23] MEDS ORDERED: METHADONE HCL 10 MG TABLET ONE (04:48)
[2018-02-23] MEDS: METHADONE 40 MG, METHADONE 20 MG PO SCH (05:22)
[2018-02-23] MEDS: chlordiazePOXIDE HCL 25 MG CAPSULE PO SCH ×2 (05:22→10:08)
[2018-02-23] MEDS: AMOX TR/POT CLAV 875MG/125MG TABLETS (FP) PO SCH ×2 (07:26→16:55)
[2018-02-23] MEDS: ESCITALOPRAM OXALATE 20 MG TABLET (FP) PO SCH (10:08)
[2018-02-23] MEDS: NICOTINE 14 MG/24 HOURS TOPICAL PATCH TD SCH (10:08)
[2018-02-23] MEDS: PRENATAL VITAMINS W/ FOLIC ACID TABLET (FP) PO SCH (10:08)
[2018-02-23] MEDS: chlordiazePOXIDE 5 MG CAPSULE PO SCH ×2 (16:55→22:00)
--- NOTE | 2018-02-23 17:29 | PN ---
S CIWA - CIWA Score Nausea/Vomitin Muscle Tremors: 3 Anxiety: 3 Agitation: 3 Paroxysmal Sweats: 3 Orientation: 0-Oriented Tacttile Disturbances: 0-None Auditory Disturbances: 0-None Visual Disturbances: 0-None Headache: 0-None Present CIWA-Ar Total Score: 14 BHS Progress Note (SOAP) Subjective: Anxious, sweating, interrupted sleep Objective: 02/23/18 17:28 Last Vital Signs Temp Pulse Resp BP Pulse Ox 98.6 F 67 20 102/74 02/23/18 14:25 02/23/18 14:25 02/23/18 14:25 02/23/18 14:25 Laboratory Tests 02/22/18 02/22/18 02/22/18 05:40 05:40 05:40 WBC 5.0 RBC 4.43 Hgb 12.5 Hct 40.2 MCV 90.9 MCH 28.3 MCHC 31.2 L RDW 16.3 H Plt Count 214 MPV 8.8 Sodium 142 Potassium 4.1 Chloride 105 Carbon Dioxide 28 Anion Gap 9 BUN 12 Creatinine 0.7 Creat Clearance w eGFR > 60 Random Glucose 89 Calcium 9.6 Total Bilirubin 0.4 AST 38 H ALT 39 Alkaline Phosphatase 140 H Total Protein 8.2 Albumin 4.5 RPR Titer Nonreactive Labs reviewed Assessment: 02/23/18 17:28 Withdrawal symptoms Plan: Continue detox Encouraged PO water intake
[2018-02-23] MEDS: THIAMINE HCL 100 MG TABLET (FP) PO SCH (22:00)
[2018-02-23] MEDS: traZODone HCL 50 MG TABLET (FP) PO SCH (22:00)
[2018-02-24] MEDS ORDERED: METHADONE HCL 10 MG TABLET ONE (04:18)
[2018-02-24] MEDS ORDERED: METHADONE HCL 40 MG DISPERSABLE TABLET ONE (04:19)
[2018-02-24] MEDS: chlordiazePOXIDE 5 MG CAPSULE PO SCH ×2 (05:50→10:15)
[2018-02-24] MEDS: METHADONE 40 MG, METHADONE 20 MG PO SCH (05:51)
[2018-02-24] MEDS: AMOX TR/POT CLAV 875MG/125MG TABLETS (FP) PO SCH ×2 (07:20→17:05)
[2018-02-24] MEDS: ESCITALOPRAM OXALATE 20 MG TABLET (FP) PO SCH (10:15)
[2018-02-24] MEDS: NICOTINE 14 MG/24 HOURS TOPICAL PATCH TD SCH (10:15)
[2018-02-24] MEDS: PRENATAL VITAMINS W/ FOLIC ACID TABLET (FP) PO SCH (10:15)
--- NOTE | 2018-02-24 11:01 | PN ---
[facility] Progress Note (SOAP) Subjective: feeling better mild tremor less sweat no gi distress discuss aftercare with staff Objective: 02/24/18 10:59 Vital Signs Temperature 98.2 F 02/24/18 09:31 Pulse Rate 76 02/24/18 09:31 Respiratory Rate 18 02/24/18 09:31 Blood Pressure 96/72 02/24/18 09:31 O2 Sat by Pulse Oximetry (%) Laboratory Last Values WBC 5.0 K/mm3 (4.0-10.0) 02/22/18 05:40 RBC 4.43 M/mm3 (3.60-5.2) 02/22/18 05:40 Hgb 12.5 GM/dL (10.7-15.3) 02/22/18 05:40 Hct 40.2 % (32.4-45.2) 02/22/18 05:40 MCV 90.9 fl (80-96) 02/22/18 05:40 MCH 28.3 pg (25.7-33.7) 02/22/18 05:40 MCHC 31.2 g/dl (32.0-36.0) L 02/22/18 05:40 RDW 16.3 % (11.6-15.6) H 02/22/18 05:40 Plt Count 214 K/MM3 (134-434) 02/22/18 05:40 MPV 8.8 fl (7.5-11.1) 02/22/18 05:40 Sodium 142 mmol/L (136-145) 02/22/18 05:40 Potassium 4.1 mmol/L (3.5-5.1) 02/22/18 05:40 Chloride 105 mmol/L (98-107) 02/22/18 05:40 Carbon Dioxide 28 mmol/L (21-32) 02/22/18 05:40 Anion Gap 9 MMOL/L (8-16) 02/22/18 05:40 BUN 12 mg/dL (7-18) 02/22/18 05:40 Creatinine 0.7 mg/dL (0.55-1.3) 02/22/18 05:40 Creat Clearance w eGFR > 60 (>60) 02/22/18 05:40 Random Glucose 89 mg/dL (74-106) 02/22/18 05:40 Calcium 9.6 mg/dL (8.5-10.1) 02/22/18 05:40 Total Bilirubin 0.4 mg/dL (0.2-1) 02/22/18 05:40 AST 38 U/L (15-37) H 02/22/18 05:40 ALT 39 U/L (13-61) 02/22/18 05:40 Alkaline Phosphatase 140 U/L (45-117) H 02/22/18 05:40 Total Protein 8.2 g/dl (6.4-8.2) 02/22/18 05:40 Albumin 4.5 g/dl (3.4-5.0) 02/22/18 05:40 RPR Titer Nonreactive (NONREACTIVE) 02/22/18 05:40 lab noted Assessment: 02/24/18 11:00 mild withdrawal sx chronic bp below 100 Plan: continue detox increase oral fluid
[2018-02-24] MEDS: chlordiazePOXIDE HCL 10 MG CAPSULE PO SCH ×2 (17:05→22:00)
[2018-02-24] MEDS: THIAMINE HCL 100 MG TABLET (FP) PO SCH (22:00)
[2018-02-24] MEDS: traZODone HCL 50 MG TABLET (FP) PO SCH (22:00)
[2018-02-25] MEDS ORDERED: METHADONE HCL 10 MG TABLET ONE (04:24)
[2018-02-25] MEDS ORDERED: METHADONE HCL 40 MG DISPERSABLE TABLET ONE (04:24)
[2018-02-25] MEDS: chlordiazePOXIDE HCL 10 MG CAPSULE PO SCH (05:36)
[2018-02-25] MEDS: METHADONE 40 MG, METHADONE 20 MG PO SCH (05:36)
[2018-02-25 06:19] VITALS: BP 103/70; PULSE 66; TEMP 97.3
[2018-02-25] MEDS: AMOX TR/POT CLAV 875MG/125MG TABLETS (FP) PO SCH (07:32)
--- NOTE | 2018-02-25 17:08 | DS ---
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 THUS, PRE- DISCHARGE MEDICAL ASSESSMENT UNABLE TO BE DONE. PER PATIENT'S COUNSELOR ( KELLY GAINES), PATIENT DECLINED AFTERCARE REFERRAL. Pertinent Past History: History of Anemia, Asthma, H.I.V., History of Liver Disease, History of Depression, History of Bipolar Disorder, Nicotine Dependence, M.M.T.P. - Physical Exam Results Vital Signs: Vital Signs Temperature 97.3 F L 02/25/18 06:18 Pulse Rate 66 02/25/18 06:18 Respiratory Rate 18 02/25/18 06:18 Blood Pressure 103/70 02/25/18 06:18 O2 Sat by Pulse Oximetry (%) Pertinent Admission Physical Exam Findings: WITHDRAWAL SYMPTOMS. Laboratory Tests 02/22/18 02/22/18 02/22/18 05:40 05:40 05:40 WBC 5.0 RBC 4.43 Hgb 12.5 Hct 40.2 MCV 90.9 MCH 28.3 MCHC 31.2 L RDW 16.3 H Plt Count 214 MPV 8.8 Sodium 142 Potassium 4.1 Chloride 105 Carbon Dioxide 28 Anion Gap 9 BUN 12 Creatinine 0.7 Creat Clearance w eGFR > 60 Random Glucose 89 Calcium 9.6 Total Bilirubin 0.4 AST 38 H ALT 39 Alkaline Phosphatase 140 H Total Protein 8.2 Albumin 4.5 RPR Titer Nonreactive LABS NOTED. - Treatment Hospital Course: Detox Protocol Followed, Responded well Patient has Accepted a Rehab Referral to: PATIENT DECLINED AFTERCARE REFERRAL. - Medication Discharge Medications: Ambulatory Orders Escitalopram Oxalate [Lexapro -] 20 mg PO DAILY #30 tablet 08/22/17 traZODone HCL [Trazodone HCl] 50 mg PO HS 09/20/17 Albuterol Sulfate Inhaler - [Ventolin HFA Inhaler -] 2 inh PO Q4H PRN #1 inhaler 02/24/18 - Diagnosis (1) Alcohol dependence with uncomplicated withdrawal Status: Acute (2) Asthma Status: Acute Qualifiers: Asthma severity: mild Asthma persistence: intermittent (3) Opioid dependence on agonist therapy Status: Acute (4) HIV (human immunodeficiency virus infection) Status: Chronic (5) Methadone maintenance therapy patient Status: Chronic (6) Nicotine dependence Status: Chronic Qualifiers: Nicotine product type: cigarettes Substance use status: in withdrawal Qualified Code(s): F17.213 - Nicotine dependence, cigarettes, with withdrawal (7) Alcohol dependence with intoxication Status: Acute Qualifiers: Complication of substance-induced condition: uncomplicated Qualified Code(s ): F10.220 - Alcohol dependence with intoxication, uncomplicated (8) Substance-induced sleep disorder Status: Acute (9) Depression Status: Chronic Qualifiers: Depression Type: unspecified Qualified Code(s): F32.9 - Major depressive disorder, single episode, unspecified - AMA Did Patient Leave Against Medical Advice: No
== END 2018-02-25 08:42 | disposition home or self-care (01) | DRG 773 ==
LOC: YASAS 10:14 → Y3N 14:36
PROC: HZ2ZZZZ Detoxification Services for Substance Abuse Treatment (ICD-10-PCS; principal; 2018-02-21)
DX: F10.230 Alcohol dependence with withdrawal, uncomplicated (principal); F11.20 Opioid dependence, uncomplicated; F17.213 Nicotine dependence, cigarettes, with withdrawal; F19.282 Other psychoactive substance dependence with psychoactive substance-induced sleep disorder; F31.9 Bipolar disorder, unspecified; Z21 Asymptomatic human immunodeficiency virus [HIV] infection status; J45.20 Mild intermittent asthma, uncomplicated; Z86.2 Personal history of diseases of the blood and blood-forming organs and certain disorders involving the immune mechanism; Z87.19 Personal history of other diseases of the digestive system
CPT/HCPCS: 36415; 80053; 85027; 86593

== ENCOUNTER 2018-03-28 10:46 | Inpatient (IN) | payer OTHER ==
[2018-03-28 11:05] VITALS: BMI 22.6
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
[2018-03-28] MEDS ORDERED: chlordiazePOXIDE HCL 25 MG CAPSULE PO PRN (11:54)
[2018-03-28] MEDS ORDERED: ACETAMINOPHEN 325 MG TABLET (FP) PO PRN (11:54)
[2018-03-28] MEDS ORDERED: MAGNESIUM CITRATE 300 ML BOTTLE PO PRN (11:54)
[2018-03-28] MEDS ORDERED: MAGNESIUM HYDROX 2400MG/30ML ORAL SUSPENSION 30 ML CUP PO PRN (11:54)
[2018-03-28] MEDS ORDERED: MENTHOL/PHENOL 1 EACH UD MM PRN (11:54)
[2018-03-28] MEDS ORDERED: guaiFENesin/D-METHORPHAN HB 10 ML UNIT-DOSE CUPS PO PRN (11:54)
[2018-03-28] MEDS ORDERED: IBUPROFEN 400 MG TABLET (FP) PO PRN (11:54)
[2018-03-28] MEDS ORDERED: MAG HYDROX/AL HYDROX/SIMETH 30 ML UNIT-DOSE CUP PO PRN (11:54)
[2018-03-28] MEDS ORDERED: NICOTINE POLACRILEX 2 MG GUM BUC PRN (11:54)
[2018-03-28] MEDS: chlordiazePOXIDE HCL 25 MG CAPSULE PO SCH ×2 (17:11→22:11)
[2018-03-28] MEDS ORDERED: ALBUTEROL SO4 0.083% IH SOL 2.5 MG/3 ML VIAL.NEB. NEB PRN (18:56)
[2018-03-28] MEDS: P-EPHED 60MG/TRIPROLIDI 2.5MG TABLET PO PRN (20:06)
[2018-03-28] MEDS: ALBUTEROL SO4 8 GM HFA INHALER IH PRN (20:07)
[2018-03-28] MEDS: MELATONIN 5 MG TABLETS PO PRN (22:11)
[2018-03-28] MEDS: THIAMINE HCL 100 MG TABLET (FP) PO SCH (22:11)
[2018-03-29] MEDS: chlordiazePOXIDE HCL 25 MG CAPSULE PO SCH ×4 (06:46→22:11)
[2018-03-29] MEDS ORDERED: METHADONE HCL 5 MG TABLET PO SCH ×2 (10:00→10:19)
--- NOTE | 2018-03-29 10:00 | PN ---
S CIWA - CIWA Score Nausea/Vomitin-Mild Nausea/No Vomiting Muscle Tremors: 1-None Visible, but [place] Anxiety: 1-Mildly Anxious Agitation: 1-Slight > Activity Paroxysmal Sweats: No Perspiration Orientation: 0-Oriented Tacttile Disturbances: 0-None Auditory Disturbances: 0-None Visual Disturbances: 0-None Headache: 0-None Present CIWA-Ar Total Score: 4 BHS Progress Note (SOAP) Subjective: pt states would like nicotine patch 7mg, and would like to continue trazodone and lexapro-was getting this as outpt O: Vital Signs - 24 hr 03/28/18 03/28/18 03/28/18 11:01 16:00 16:30 Temperature 97.7 F Pulse Rate 86 90 88 Respiratory 20 18 Rate Blood Pressure 143/80 03/28/18 03/28/18 03/28/18 17:00 17:30 18:00 Temperature 98.4 F Pulse Rate 86 82 82 Respiratory 18 18 18 Rate Blood Pressure 107/69 03/28/18 03/28/18 03/28/18 18:30 19:00 19:30 Temperature Pulse Rate 88 84 82 Respiratory 18 18 18 Rate Blood Pressure 03/28/18 03/28/18 03/28/18 20:00 20:30 21:00 Temperature Pulse Rate 82 82 77 Respiratory 18 Rate Blood Pressure 03/28/18 03/28/18 03/28/18 21:30 22:00 22:30 Temperature Pulse Rate 77 77 76 Respiratory Rate Blood Pressure 03/28/18 03/28/18 03/28/18 22:48 23:00 23:30 Temperature 98.8 F Pulse Rate 77 76 75 Respiratory 18 18 18 Rate Blood Pressure 157/98 03/29/18 03/29/18 03/29/18 00:00 00:16 00:30 Temperature Pulse Rate 75 75 74 Respiratory 18 18 18 Rate Blood Pressure 141/95 03/29/18 03/29/18 03/29/18 01:00 01:30 02:00 Temperature Pulse Rate 74 78 78 Respiratory 18 18 18 Rate Blood Pressure 03/29/18 03/29/18 03/29/18 02:30 03:00 03:30 Temperature Pulse Rate 77 77 75 Respiratory 18 18 18 Rate Blood Pressure 02/16/19 02/16/19 02/16/19 04:00 04:30 05:00 Temperature Pulse Rate 75 74 74 Respiratory 18 18 18 Rate Blood Pressure 03/29/18 03/29/18 03/29/18 05:30 06:00 06:30 Temperature Pulse Rate 75 75 75 Respiratory Rate Blood Pressure 03/29/18 03/29/18 03/29/18 07:00 07:30 08:00 Temperature Pulse Rate 74 74 74 Respiratory Rate Blood Pressure 03/29/18 03/29/18 08:51 09:50 Temperature 97.9 F 98 F Pulse Rate 74 80 Respiratory 16 18 Rate Blood Pressure 121/81 149/97 labs- pedning a/p: continue alcohol detox protocol- pt doing well, nicotine patch 7mg, lexapro and trazodone ordered
[2018-03-29] MEDS: PRENATAL VITAMINS W/ FOLIC ACID TABLET (FP) PO SCH (10:13)
[2018-03-29] MEDS ORDERED: METHADONE HCL 40 MG DISPERSABLE TABLET PO SCH (10:45)
[2018-03-29] MEDS: ESCITALOPRAM OXALATE 20 MG TABLET (FP) PO SCH (11:24)
[2018-03-29] MEDS: NICOTINE 7 MG/24 HOURS TOPICAL PATCH TD SCH (11:25)
[2018-03-29 11:28] LABS: ALBUMIN 4.2 g/dl (3.4-5.0); ALK PHOS 118 U/L (45-117); ANION GAP 7 MMOL/L (8-16); BILIRUBIN,TOTAL 0.2 mg/dL (0.2-1); BLOOD UREA NITROGEN 15 mg/dL (7-18); CALCIUM 9.6 mg/dL (8.5-10.1); CHLORIDE 106 mmol/L (98-107); CO2 30 mmol/L (21-32); CREATININE 0.6 mg/dL (0.55-1.3); GLUCOSE,RANDOM 103 mg/dL (74-106); SGOT/AST 34 U/L (15-37); SGPT/ALT 38 U/L (13-61); SODIUM 143 mmol/L (136-145); TOT PROT 7.7 g/dl (6.4-8.2)
[2018-03-29 11:29] LABS: HEMATOCRIT 36.9 % (32.4-45.2); HEMOGLOBIN 12.5 GM/dL (10.7-15.3); MCH 30.7 pg (25.7-33.7); MCHC 33.9 g/dl (32.0-36.0); MEAN CELL VOLUME 90.5 fl (80-96); MEAN PLT VOLUME 8.7 fl (7.5-11.1); PLATELET COUNT 215 K/MM3 (134-434); RBC 4.08 M/mm3 (3.60-5.2); RDW 15.6 % (11.6-15.6); WHITE BLOOD COUNT 4.2 K/mm3 (4.0-10.0)
[2018-03-29] MEDS ORDERED: METHADONE HCL 10 MG TABLET PO ONE (11:30)
[2018-03-29] MEDS: ALBUTEROL SO4 8 GM HFA INHALER IH PRN (21:24)
[2018-03-29] MEDS: P-EPHED 60MG/TRIPROLIDI 2.5MG TABLET PO PRN (21:26)
[2018-03-29] MEDS: THIAMINE HCL 100 MG TABLET (FP) PO SCH (22:11)
[2018-03-29] MEDS: traZODone HCL 50 MG TABLET (FP) PO SCH (22:12)
[2018-03-29] MEDS: MELATONIN 5 MG TABLETS PO PRN (22:12)
[2018-03-30] MEDS ORDERED: METHADONE HCL 40 MG DISPERSABLE TABLET ONE (04:55)
[2018-03-30] MEDS ORDERED: METHADONE HCL 10 MG TABLET ONE (04:56)
[2018-03-30] MEDS: METHADONE 40 MG, METHADONE 10 MG PO SCH (05:38)
[2018-03-30] MEDS: chlordiazePOXIDE HCL 25 MG CAPSULE PO SCH ×2 (05:39→10:16)
[2018-03-30] MEDS ORDERED: METHADONE HCL 5 MG TABLET PO SCH (06:00)
[2018-03-30] MEDS: ESCITALOPRAM OXALATE 20 MG TABLET (FP) PO SCH (10:15)
[2018-03-30] MEDS: PRENATAL VITAMINS W/ FOLIC ACID TABLET (FP) PO SCH (10:15)
[2018-03-30] MEDS: NICOTINE 7 MG/24 HOURS TOPICAL PATCH TD SCH (10:16)
--- NOTE | 2018-03-30 13:48 | PN ---
S CIWA - CIWA Score Nausea/Vomitin-No Nausea/No Vomiting Muscle Tremors: None Anxiety: 2 Agitation: 3 Paroxysmal Sweats: 2 Orientation: 0-Oriented Tacttile Disturbances: 2-Mild Itch/Numbness/Burn Auditory Disturbances: 0-None Visual Disturbances: 0-None Headache: 1-Very Mild CIWA-Ar Total Score: 10 BHS Progress Note (SOAP) Subjective: PATIENT C/O MILD HEADACHE, NUMBNESS/TINGLING TO EXTEMITIES AND ANXIETY Objective: 03/30/18 13:47 Laboratory Tests 03/29/18 03/29/18 03/29/18 06:00 06:00 06:00 WBC 4.2 RBC 4.08 Hgb 12.5 Hct 36.9 MCV 90.5 MCH 30.7 MCHC 33.9 RDW 15.6 Plt Count 215 MPV 8.7 Sodium 143 Potassium 4.0 Chloride 106 Carbon Dioxide 30 Anion Gap 7 L BUN 15 Creatinine 0.6 Creat Clearance w eGFR > 60 Random Glucose 103 Calcium 9.6 Total Bilirubin 0.2 AST 34 ALT 38 Alkaline Phosphatase 118 H Total Protein 7.7 Albumin 4.2 RPR Titer Nonreactive Laboratory Tests 03/29/18 03/29/18 03/29/18 06:00 06:00 06:00 WBC 4.2 RBC 4.08 Hgb 12.5 Hct 36.9 MCV 90.5 MCH 30.7 MCHC 33.9 RDW 15.6 Plt Count 215 MPV 8.7 Sodium 143 Potassium 4.0 Chloride 106 Carbon Dioxide 30 Anion Gap 7 L BUN 15 Creatinine 0.6 Creat Clearance w eGFR > 60 Random Glucose 103 Calcium 9.6 Total Bilirubin 0.2 AST 34 ALT 38 Alkaline Phosphatase 118 H Total Protein 7.7 Albumin 4.2 RPR Titer Nonreactive Vital Signs Temperature 98.1 F 03/30/18 09:40 Pulse Rate 84 03/30/18 09:40 Respiratory Rate 16 03/30/18 09:40 Blood Pressure 106/77 03/30/18 09:40 O2 Sat by Pulse Oximetry (%) PE: ALERT AND ORIENTED X 3 SKIN WARM AND DRY EXT NO VISIBLE EDEMA/TREMORS AMB AD SALONI MILDLY ANXIOUS Assessment: 03/30/18 13:48 ETOH WITHDRAWAL SX Plan: CONTINUE DETOX ENCOURAGE FLUIDS CONTINUE TO MONITOR CLINICALLY
[2018-03-30] MEDS: chlordiazePOXIDE 5 MG CAPSULE PO SCH ×2 (17:16→22:07)
[2018-03-30] MEDS: P-EPHED 60MG/TRIPROLIDI 2.5MG TABLET PO PRN (17:38)
[2018-03-30] MEDS: THIAMINE HCL 100 MG TABLET (FP) PO SCH (22:07)
[2018-03-30] MEDS: ALBUTEROL SO4 8 GM HFA INHALER IH PRN (22:07)
[2018-03-30] MEDS: MELATONIN 5 MG TABLETS PO PRN (22:07)
[2018-03-30] MEDS: traZODone HCL 50 MG TABLET (FP) PO SCH (22:07)
[2018-03-31] MEDS ORDERED: METHADONE HCL 10 MG TABLET ONE (04:24)
[2018-03-31] MEDS ORDERED: METHADONE HCL 40 MG DISPERSABLE TABLET ONE (04:24)
[2018-03-31] MEDS: chlordiazePOXIDE 5 MG CAPSULE PO SCH ×2 (05:33→10:05)
[2018-03-31] MEDS: METHADONE 40 MG, METHADONE 10 MG PO SCH (05:33)
[2018-03-31] MEDS: ESCITALOPRAM OXALATE 20 MG TABLET (FP) PO SCH (10:05)
[2018-03-31] MEDS: PRENATAL VITAMINS W/ FOLIC ACID TABLET (FP) PO SCH (10:05)
--- NOTE | 2018-03-31 11:09 | PN ---
BHS Progress Note (SOAP) Subjective: sweats anxiety Objective: 03/31/18 11:08 Vital Signs Temperature 98.1 F 03/31/18 09:58 Pulse Rate 80 03/31/18 09:58 Respiratory Rate 16 03/31/18 09:58 Blood Pressure 111/72 03/31/18 09:58 O2 Sat by Pulse Oximetry (%) aaox3 ambulating no acute distress Assessment: 03/31/18 11:08 mild withdrawal sx Plan: continue detox increase fluids d/c in am
[2018-03-31] MEDS: NICOTINE 7 MG/24 HOURS TOPICAL PATCH TD SCH (12:12)
[2018-03-31] MEDS: chlordiazePOXIDE HCL 10 MG CAPSULE PO SCH ×2 (17:12→22:18)
[2018-03-31] MEDS: ALBUTEROL SO4 8 GM HFA INHALER IH PRN (22:18)
[2018-03-31] MEDS: THIAMINE HCL 100 MG TABLET (FP) PO SCH (22:19)
[2018-03-31] MEDS: MELATONIN 5 MG TABLETS PO PRN (22:19)
[2018-03-31] MEDS: traZODone HCL 50 MG TABLET (FP) PO SCH (22:19)
[2018-04-01] MEDS ORDERED: METHADONE HCL 10 MG TABLET ONE (03:01)
[2018-04-01] MEDS ORDERED: METHADONE HCL 40 MG DISPERSABLE TABLET ONE (03:01)
[2018-04-01] MEDS: METHADONE 40 MG, METHADONE 10 MG PO SCH (05:51)
[2018-04-01] MEDS: chlordiazePOXIDE HCL 10 MG CAPSULE PO SCH (05:51)
[2018-04-01 06:34] VITALS: BP 110/64; PULSE 69; TEMP 97.9
--- NOTE | 2018-04-01 09:53 | DS ---
[facility] Detox Discharge Summary Admission Date: 03/28/18 Discharge Date: 04/01/18 - History Present History: Alcohol Dependence, Cocaine Dependence, Opioid Dependence, MMTP - Physical Exam Results Vital Signs: Vital Signs Temperature 97.9 F 04/01/18 06:00 Pulse Rate 69 04/01/18 06:00 Respiratory Rate 16 04/01/18 06:00 Blood Pressure 110/64 04/01/18 06:00 O2 Sat by Pulse Oximetry (%) - Treatment Hospital Course: Detox Protocol Followed, Detoxed Safely, Responded well, Discharged Condition Good, Rehab Referral Accepted - Medication Discharge Medications: Ambulatory Orders Escitalopram Oxalate [Lexapro -] 20 mg PO DAILY #30 tablet 08/22/17 traZODone HCL [Trazodone HCl] 50 mg PO HS 09/20/17 Albuterol Sulfate Inhaler - [Ventolin HFA Inhaler -] 2 inh PO Q4H PRN #1 inhaler 02/24/18 - Diagnosis (1) Alcohol dependence with uncomplicated withdrawal Current Visit: Yes Status: Chronic (2) Asthma Current Visit: Yes Status: Chronic Qualifiers: Asthma severity: mild Asthma persistence: intermittent (3) Insomnia secondary to depression with anxiety Current Visit: Yes Status: Chronic (4) Bipolar disorder Current Visit: No Status: Chronic (5) Cocaine dependence Current Visit: Yes Status: Chronic Qualifiers: Substance use status: uncomplicated Qualified Code(s): F14.20 - Cocaine dependence, uncomplicated (6) HIV (human immunodeficiency virus infection) Current Visit: Yes Status: Chronic Qualifiers: HIV symptom status: unspecified Qualified Code(s): B20 - Human immunodeficiency virus [HIV] disease (7) MDD (major depressive disorder) Current Visit: No Status: Chronic (8) Methadone maintenance therapy patient Current Visit: Yes Status: Chronic (9) Mood disorder Current Visit: No Status: Chronic (10) Nicotine dependence Current Visit: Yes Status: Chronic Qualifiers: Nicotine product type: cigarettes Substance use status: uncomplicated Qualified Code(s): F17.210 - Nicotine dependence, cigarettes, uncomplicated (11) Bipolar disorder Current Visit: No Status: Suspected Qualifiers: Active/Remission status: in partial remission Most recent bipolar episode type: mixed Qualified Code(s): F31.77 - Bipolar disorder, in partial remission , most recent episode mixed (12) Drug-induced mood disorder Current Visit: No Status: Suspected (13) Substance induced mood disorder Current Visit: No Status: Suspected - AMA Did Patient Leave Against Medical Advice: No (referred to MMTP program)
== END 2018-04-01 09:11 | disposition home or self-care (01) | DRG 773 ==
LOC: YASAS 10:46 → Y6N 13:00
PROVIDERS: ADMIT Surgery; ATTEND Surgery
PROC: HZ2ZZZZ Detoxification Services for Substance Abuse Treatment (ICD-10-PCS; principal; 2018-03-28)
DX: F10.230 Alcohol dependence with withdrawal, uncomplicated (principal); F10.220 Alcohol dependence with intoxication, uncomplicated; F11.20 Opioid dependence, uncomplicated; F14.20 Cocaine dependence, uncomplicated; F17.210 Nicotine dependence, cigarettes, uncomplicated; F51.05 Insomnia due to other mental disorder; F33.9 Major depressive disorder, recurrent, unspecified; F39 Unspecified mood [affective] disorder; F19.24 Other psychoactive substance dependence with psychoactive substance-induced mood disorder; Z21 Asymptomatic human immunodeficiency virus [HIV] infection status; J45.909 Unspecified asthma, uncomplicated; D64.9 Anemia, unspecified; Z91.14 Patient's other noncompliance with medication regimen
CPT/HCPCS: 36415; 80053; 85027; 86593

== ENCOUNTER 2018-05-14 12:31 | Inpatient (IN) | payer OTHER ==
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
[2018-05-14] MEDS ORDERED: MAG HYDROX/AL HYDROX/SIMETH 30 ML UNIT-DOSE CUP PO PRN (14:41)
[2018-05-14] MEDS ORDERED: ACETAMINOPHEN 325 MG TABLET (FP) PO PRN ×2 (14:41)
[2018-05-14] MEDS ORDERED: chlordiazePOXIDE HCL 25 MG CAPSULE PO PRN (14:41)
[2018-05-14] MEDS ORDERED: IBUPROFEN 400 MG TABLET (FP) PO PRN (14:41)
[2018-05-14] MEDS ORDERED: MAGNESIUM HYDROX 2400MG/30ML ORAL SUSPENSION 30 ML CUP PO PRN (14:41)
[2018-05-14] MEDS ORDERED: BISMUTH SUBSALICYLATE 524 MG/30 ML UD PO PRN (14:41)
[2018-05-14] MEDS ORDERED: NICOTINE POLACRILEX 2 MG GUM BUC PRN (14:41)
[2018-05-14] MEDS ORDERED: MELATONIN 5 MG TABLETS PO PRN (14:41)
[2018-05-14] MEDS ORDERED: MENTHOL/PHENOL 1 EACH UD MM PRN (14:41)
[2018-05-14] MEDS ORDERED: hydrOXYzine PAMOATE 25 MG CAPSULE (FP) PO PRN (14:41)
[2018-05-14] MEDS ORDERED: MAGNESIUM CITRATE 300 ML BOTTLE PO PRN (14:41)
[2018-05-14] MEDS ORDERED: METHOCARBAMOL 500 MG TABLET PO PRN (14:41)
[2018-05-14] MEDS: NICOTINE 14 MG/24 HOURS TOPICAL PATCH TD SCH (16:01)
[2018-05-14 17:05] LABS: HEMATOCRIT 38.4 % (32.4-45.2); HEMOGLOBIN 12.4 GM/dL (10.7-15.3); MCH 29.6 pg (25.7-33.7); MCHC 32.4 g/dl (32.0-36.0); MEAN CELL VOLUME 91.2 fl (80-96); MEAN PLT VOLUME 8.5 fl (7.5-11.1); PLATELET COUNT 187 K/MM3 (134-434); RBC 4.21 M/mm3 (3.60-5.2); RDW 16.2 % (11.6-15.6); WHITE BLOOD COUNT 4.8 K/mm3 (4.0-10.0)
[2018-05-14 17:12] LABS: ALK PHOS 117 U/L (45-117); ANION GAP 9 MMOL/L (8-16); BILIRUBIN,TOTAL 0.2 mg/dL (0.2-1); BLOOD UREA NITROGEN 17 mg/dL (7-18); CHLORIDE 104 mmol/L (98-107); CO2 30 mmol/L (21-32); CREATININE 0.9 mg/dL (0.55-1.3); GLUCOSE,RANDOM 96 mg/dL (74-106); POTASSIUM 4.1 mmol/L (3.5-5.1); SGOT/AST 38 U/L (15-37); SGPT/ALT 40 U/L (13-61); SODIUM 143 mmol/L (136-145); TOT PROT 7.7 g/dl (6.4-8.2)
[2018-05-14 17:38] LABS: URINE APPEARANCE CLEAR; URINE BILIRUBIN NEGATIVE (NEGATIVE); URINE COLOR YELLOW; URINE GLUCOSE (UA) NEGATIVE (NEGATIVE); URINE KETONE NEGATIVE (NEGATIVE); URINE LEUK ESTERASE TRACE (NEGATIVE); URINE NITRITE NEGATIVE (NEGATIVE); URINE PROTEIN NEGATIVE (NEGATIVE); URINE UROBILINOGEN 0.2 mg/dL (0.2-1.0)
[2018-05-14] MEDS: chlordiazePOXIDE HCL 25 MG CAPSULE PO SCH ×2 (17:45→22:21)
[2018-05-14 18:13] LABS: URINE RBC 2.4 /hpf (0-4)
[2018-05-14 18:14] LABS: EPI CELLS 7.3 /HPF (0-5); URINE BACTERIA 11.5 /hpf (NEGATIVE); URINE CASTS NONE SEEN /hpf (0-8)
[2018-05-14] MEDS: THIAMINE HCL 100 MG TABLET (FP) PO SCH (22:21)
[2018-05-14] MEDS: traZODone HCL 50 MG TABLET (FP) PO SCH (22:21)
[2018-05-14] MEDS: ALBUTEROL SO4 8 GM HFA INHALER IH PRN (22:22)
[2018-05-15] MEDS: chlordiazePOXIDE HCL 25 MG CAPSULE PO SCH ×4 (05:53→22:26)
[2018-05-15] MEDS: NICOTINE 14 MG/24 HOURS TOPICAL PATCH TD SCH (10:27)
[2018-05-15] MEDS: ESCITALOPRAM OXALATE 20 MG TABLET (FP) PO SCH (10:27)
[2018-05-15] MEDS: PRENATAL VITAMINS W/ FOLIC ACID TABLET (FP) PO SCH (10:27)
--- NOTE | 2018-05-15 10:45 | PN ---
[facility] CIWA - CIWA Score Nausea/Vomitin-No Nausea/No Vomiting Muscle Tremors: 3 Anxiety: 3 Agitation: 3 Paroxysmal Sweats: 3 Orientation: 0-Oriented Tacttile Disturbances: 0-None Auditory Disturbances: 0-None Visual Disturbances: 0-None Headache: 0-None Present CIWA-Ar Total Score: 12 S Progress Note (SOAP) Subjective: sweats shakes interrupted sleep body aches Objective: 05/15/18 11:08 Vital Signs Temperature 98.3 F 05/15/18 10:33 Pulse Rate 77 05/15/18 10:33 Respiratory Rate 18 05/15/18 10:33 Blood Pressure 114/78 05/15/18 10:33 O2 Sat by Pulse Oximetry (%) Laboratory Tests 05/14/18 05/14/18 05/14/18 14:10 14:10 14:10 WBC 4.8 RBC 4.21 Hgb 12.4 Hct 38.4 MCV 91.2 MCH 29.6 MCHC 32.4 RDW 16.2 H Plt Count 187 MPV 8.5 Sodium 143 Potassium 4.1 Chloride 104 Carbon Dioxide 30 Anion Gap 9 BUN 17 Creatinine 0.9 Creat Clearance w eGFR 64.09 Random Glucose 96 Calcium 9.0 Total Bilirubin 0.2 AST 38 H ALT 40 Alkaline Phosphatase 117 Total Protein 7.7 Albumin 4.0 Urine Color Urine Appearance Urine pH Ur Specific [place] Urine Protein Urine Glucose (UA) Urine Ketones Urine Blood Urine Nitrite Urine Bilirubin Urine Urobilinogen Ur Leukocyte Esterase Urine WBC (Auto) Urine RBC (Auto) Urine Casts (Auto) U Epithel Cells (Auto) Urine Bacteria (Auto) RPR Titer Nonreactive 05/14/18 15:40 WBC RBC Hgb Hct MCV MCH MCHC RDW Plt Count MPV Sodium Potassium Chloride Carbon Dioxide Anion Gap BUN Creatinine Creat Clearance w eGFR Random Glucose Calcium Total Bilirubin AST ALT Alkaline Phosphatase Total Protein Albumin Urine Color Yellow Urine Appearance Clear Urine pH 7.0 Ur Specific [place] 1.010 Urine Protein Negative Urine Glucose (UA) Negative Urine Ketones Negative Urine Blood Negative Urine Nitrite Negative Urine Bilirubin Negative Urine Urobilinogen 0.2 Ur Leukocyte Esterase Trace Urine WBC (Auto) 1.0 Urine RBC (Auto) 2.4 Urine Casts (Auto) None seen U Epithel Cells (Auto) 7.3 Urine Bacteria (Auto) 11.5 RPR Titer aaox3 ambulating no acute distress Assessment: 05/15/18 11:08 withdrawal sx Plan: continue detox increase fluids
[2018-05-15] MEDS ORDERED: PNEUMOC 13-VAL CONJ-DIP CRM/PF 0.5 ML DISP.SYRIN IM ONE (12:00)
[2018-05-15] MEDS ORDERED: METHADONE HCL 10 MG TABLET PO ONE (12:22)
[2018-05-15] MEDS ORDERED: METHADONE 40 MG, METHADONE 30 MG PO ONE (12:45)
[2018-05-15] MEDS ORDERED: METHADONE HCL 40 MG DISPERSABLE TABLET ONE (12:46)
[2018-05-15] MEDS ORDERED: METHADONE HCL 10 MG TABLET ONE (12:46)
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
[2018-05-15] MEDS: ALBUTEROL SO4 8 GM HFA INHALER IH PRN ×2 (18:18→22:25)
[2018-05-15] MEDS: traZODone HCL 50 MG TABLET (FP) PO SCH (22:26)
[2018-05-15] MEDS: THIAMINE HCL 100 MG TABLET (FP) PO SCH (22:26)
[2018-05-16] MEDS ORDERED: METHADONE HCL 40 MG DISPERSABLE TABLET ONE (04:34)
[2018-05-16] MEDS ORDERED: METHADONE HCL 10 MG TABLET ONE (04:34)
[2018-05-16] MEDS: METHADONE 40 MG, METHADONE 30 MG PO SCH (05:14)
[2018-05-16] MEDS: chlordiazePOXIDE HCL 25 MG CAPSULE PO SCH ×2 (05:14→10:16)
[2018-05-16] MEDS ORDERED: METHADONE HCL 40 MG DISPERSABLE TABLET PO SCH (06:00)
[2018-05-16] MEDS: ESCITALOPRAM OXALATE 20 MG TABLET (FP) PO SCH (10:16)
[2018-05-16] MEDS: NICOTINE 14 MG/24 HOURS TOPICAL PATCH TD SCH (10:16)
[2018-05-16] MEDS: PRENATAL VITAMINS W/ FOLIC ACID TABLET (FP) PO SCH (10:16)
--- NOTE | 2018-05-16 14:06 | PN ---
[facility] CIWA - CIWA Score Nausea/Vomitin-No Nausea/No Vomiting Muscle Tremors: 3 Anxiety: 1-Mildly Anxious Agitation: 2 Paroxysmal Sweats: 3 Orientation: 0-Oriented Tacttile Disturbances: 0-None Auditory Disturbances: 0-None Visual Disturbances: 0-None Headache: 0-None Present CIWA-Ar Total Score: 9 BHS Progress Note (SOAP) Subjective: anxiety sweats interrupted sleep Objective: 05/16/18 14:05 Vital Signs Temperature 98.1 F 05/16/18 13:42 Pulse Rate 65 05/16/18 13:42 Respiratory Rate 17 05/16/18 13:42 Blood Pressure 101/70 05/16/18 13:42 O2 Sat by Pulse Oximetry (%) Laboratory Tests 05/14/18 05/14/18 05/14/18 14:10 14:10 14:10 WBC 4.8 RBC 4.21 Hgb 12.4 Hct 38.4 MCV 91.2 MCH 29.6 MCHC 32.4 RDW 16.2 H Plt Count 187 MPV 8.5 Sodium 143 Potassium 4.1 Chloride 104 Carbon Dioxide 30 Anion Gap 9 BUN 17 Creatinine 0.9 Creat Clearance w eGFR 64.09 Random Glucose 96 Calcium 9.0 Total Bilirubin 0.2 AST 38 H ALT 40 Alkaline Phosphatase 117 Total Protein 7.7 Albumin 4.0 Urine Color Urine Appearance Urine pH Ur Specific [place] Urine Protein Urine Glucose (UA) Urine Ketones Urine Blood Urine Nitrite Urine Bilirubin Urine Urobilinogen Ur Leukocyte Esterase Urine WBC (Auto) Urine RBC (Auto) Urine Casts (Auto) U Epithel Cells (Auto) Urine Bacteria (Auto) RPR Titer Nonreactive 05/14/18 15:40 WBC RBC Hgb Hct MCV MCH MCHC RDW Plt Count MPV Sodium Potassium Chloride Carbon Dioxide Anion Gap BUN Creatinine Creat Clearance w eGFR Random Glucose Calcium Total Bilirubin AST ALT Alkaline Phosphatase Total Protein Albumin Urine Color Yellow Urine Appearance Clear Urine pH 7.0 Ur Specific [place] 1.010 Urine Protein Negative Urine Glucose (UA) Negative Urine Ketones Negative Urine Blood Negative Urine Nitrite Negative Urine Bilirubin Negative Urine Urobilinogen 0.2 Ur Leukocyte Esterase Trace Urine WBC (Auto) 1.0 Urine RBC (Auto) 2.4 Urine Casts (Auto) None seen U Epithel Cells (Auto) 7.3 Urine Bacteria (Auto) 11.5 RPR Titer labs noted aaox3 ambulating no acute distress Assessment: 05/16/18 14:06 mild withdrawal sx Plan: continue detox increase fluids
[2018-05-16] MEDS ORDERED: chlordiazePOXIDE HCL 10 MG CAPSULE PO PRN (17:00)
[2018-05-16] MEDS: chlordiazePOXIDE HCL 10 MG CAPSULE PO SCH ×2 (17:24→22:33)
[2018-05-16] MEDS: traZODone HCL 50 MG TABLET (FP) PO SCH (22:33)
[2018-05-16] MEDS: THIAMINE HCL 100 MG TABLET (FP) PO SCH (22:33)
[2018-05-17] MEDS ORDERED: METHADONE HCL 40 MG DISPERSABLE TABLET ONE (04:46)
[2018-05-17] MEDS ORDERED: METHADONE HCL 10 MG TABLET ONE (04:47)
[2018-05-17] MEDS: chlordiazePOXIDE HCL 10 MG CAPSULE PO SCH ×3 (05:32→17:41)
[2018-05-17] MEDS: METHADONE 40 MG, METHADONE 30 MG PO SCH (05:32)
[2018-05-17] MEDS: PRENATAL VITAMINS W/ FOLIC ACID TABLET (FP) PO SCH (10:05)
[2018-05-17] MEDS: NICOTINE 14 MG/24 HOURS TOPICAL PATCH TD SCH (10:05)
[2018-05-17] MEDS: ESCITALOPRAM OXALATE 20 MG TABLET (FP) PO SCH (10:06)
--- NOTE | 2018-05-17 18:17 | PN ---
[facility] Progress Note (SOAP) Subjective: sweats requesting to be discharged tomorrow so she can get to her methadone program on saturday Explained to her that tomorrow is her discharge date. Objective: 05/17/18 18:16 A & O x 3 gait steady Vital Signs Temperature 98.2 F 05/17/18 17:51 Pulse Rate 67 05/17/18 17:51 Respiratory Rate 18 05/17/18 17:51 Blood Pressure 110/66 05/17/18 17:51 O2 Sat by Pulse Oximetry (%) Assessment: 05/17/18 18:16 withdrawal sx Plan: continue detox for d/c in the a.m
[2018-05-17] MEDS: traZODone HCL 50 MG TABLET (FP) PO SCH (22:22)
[2018-05-17] MEDS: THIAMINE HCL 100 MG TABLET (FP) PO SCH (22:22)
[2018-05-18] MEDS: chlordiazePOXIDE HCL 10 MG CAPSULE PO SCH (05:34)
[2018-05-18] MEDS: METHADONE 40 MG, METHADONE 30 MG PO SCH (05:35)
[2018-05-18] MEDS ORDERED: METHADONE HCL 40 MG DISPERSABLE TABLET ONE (05:35)
[2018-05-18] MEDS ORDERED: METHADONE HCL 10 MG TABLET ONE (05:35)
[2018-05-18 09:34] VITALS: BP 91/66; PULSE 70; TEMP 98.1
--- NOTE | 2018-05-18 12:26 | DS ---
[facility] Detox Discharge Summary Admission Date: 05/14/18 Discharge Date: 05/18/18 - History Present History: Alcohol Dependence, MMTP Additional Comments: Patient completed detox successfully and was discharged safely. Patient is A/A/ Ox3, in nad, vss, ambulatory. Patient instructed to follow up with her PCP within 1-2 weeks in which she verbalized understanding. Noted with hypotension: asymptomatic, encouraged PO water hydration and follow up with PCP. Pertinent Past History: Alcohol dependence Opioid dependence on MMTP Nicotine dependence Anemia Asthma, mild intermittent Liver disease HIV disease Depression - Physical Exam Results Vital Signs: Vital Signs Temperature 98.1 F 05/18/18 09:34 Pulse Rate 70 05/18/18 09:34 Respiratory Rate 18 05/18/18 09:34 Blood Pressure 91/66 05/18/18 09:34 O2 Sat by Pulse Oximetry (%) Pertinent Admission Physical Exam Findings: Withdrawal symptoms Laboratory Tests 05/14/18 05/14/18 05/14/18 14:10 14:10 14:10 WBC 4.8 RBC 4.21 Hgb 12.4 Hct 38.4 MCV 91.2 MCH 29.6 MCHC 32.4 RDW 16.2 H Plt Count 187 MPV 8.5 Sodium 143 Potassium 4.1 Chloride 104 Carbon Dioxide 30 Anion Gap 9 BUN 17 Creatinine 0.9 Creat Clearance w eGFR 64.09 Random Glucose 96 Calcium 9.0 Total Bilirubin 0.2 AST 38 H ALT 40 Alkaline Phosphatase 117 Total Protein 7.7 Albumin 4.0 Urine Color Urine Appearance Urine pH Ur Specific [place] Urine Protein Urine Glucose (UA) Urine Ketones Urine Blood Urine Nitrite Urine Bilirubin Urine Urobilinogen Ur Leukocyte Esterase Urine WBC (Auto) Urine RBC (Auto) Urine Casts (Auto) U Epithel Cells (Auto) Urine Bacteria (Auto) RPR Titer Nonreactive 05/14/18 15:40 WBC RBC Hgb Hct MCV MCH MCHC RDW Plt Count MPV Sodium Potassium Chloride Carbon Dioxide Anion Gap BUN Creatinine Creat Clearance w eGFR Random Glucose Calcium Total Bilirubin AST ALT Alkaline Phosphatase Total Protein Albumin Urine Color Yellow Urine Appearance Clear Urine pH 7.0 Ur Specific [place] 1.010 Urine Protein Negative Urine Glucose (UA) Negative Urine Ketones Negative Urine Blood Negative Urine Nitrite Negative Urine Bilirubin Negative Urine Urobilinogen 0.2 Ur Leukocyte Esterase Trace Urine WBC (Auto) 1.0 Urine RBC (Auto) 2.4 Urine Casts (Auto) None seen U Epithel Cells (Auto) 7.3 Urine Bacteria (Auto) 11.5 RPR Titer Labs reviewed - Treatment Hospital Course: Detox Protocol Followed, Detoxed Safely, Responded well, Discharged Condition Good - Medication Discharge Medications: Ambulatory Orders Escitalopram Oxalate [Lexapro -] 20 mg PO DAILY #30 tablet 08/22/17 traZODone HCL [Trazodone HCl] 50 mg PO HS 09/20/17 Albuterol Sulfate Inhaler - [Ventolin HFA Inhaler -] 2 inh PO Q4H PRN #1 inhaler 02/24/18 Tuberculin Ppd 5 Tu/0.1ML [Tubersol ([facility] Only)] 250 tu ID ONCE #1 unit 04/29 - Diagnosis (1) Anemia Status: Chronic (2) 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 (3) Alcohol dependence with uncomplicated withdrawal Status: Acute (4) Asthma Status: Chronic Qualifiers: Asthma severity: mild Asthma persistence: intermittent (5) HIV (human immunodeficiency virus infection) Status: Chronic Qualifiers: HIV symptom status: unspecified Qualified Code(s): B20 - Human immunodeficiency virus [HIV] disease (6) Nicotine dependence Status: Chronic Qualifiers: Nicotine product type: cigarettes Substance use status: uncomplicated Qualified Code(s): F17.210 - Nicotine dependence, cigarettes, uncomplicated (7) Opioid dependence on agonist therapy Status: Chronic (8) Hypotension Status: Acute - AMA Did Patient Leave Against Medical Advice: No (F/U with PCP within 1-2 weeks)
== END 2018-05-18 09:40 | disposition home or self-care (01) | DRG 773 ==
LOC: YASAS 12:31 → Y6N 15:33
PROVIDERS: ADMIT Surgery; ATTEND Surgery
PROC: HZ2ZZZZ Detoxification Services for Substance Abuse Treatment (ICD-10-PCS; principal; 2018-05-14)
DX: F10.230 Alcohol dependence with withdrawal, uncomplicated (principal); F11.20 Opioid dependence, uncomplicated; F17.210 Nicotine dependence, cigarettes, uncomplicated; F31.77 Bipolar disorder, in partial remission, most recent episode mixed; F19.24 Other psychoactive substance dependence with psychoactive substance-induced mood disorder; Z21 Asymptomatic human immunodeficiency virus [HIV] infection status; I95.9 Hypotension, unspecified; J45.20 Mild intermittent asthma, uncomplicated; D64.9 Anemia, unspecified; K70.9 Alcoholic liver disease, unspecified; R63.4 Abnormal weight loss; Z68.21 Body mass index [BMI] 21.0-21.9, adult
CPT/HCPCS: 36415; 80053; 81003; 85027; 86593

== ENCOUNTER 2018-06-02 22:42 | Inpatient (IN) | payer OTHER ==
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
[2018-06-03] MEDS ORDERED: MAG HYDROX/AL HYDROX/SIMETH 30 ML UNIT-DOSE CUP PO PRN (01:12)
[2018-06-03] MEDS ORDERED: MAGNESIUM CITRATE 300 ML BOTTLE PO PRN (01:12)
[2018-06-03] MEDS ORDERED: IBUPROFEN 400 MG TABLET (FP) PO PRN (01:12)
[2018-06-03] MEDS ORDERED: ALBUTEROL SO4 8 GM HFA INHALER IH PRN (01:12)
[2018-06-03] MEDS ORDERED: NICOTINE POLACRILEX 2 MG GUM BUC PRN (01:12)
[2018-06-03] MEDS ORDERED: ACETAMINOPHEN 325 MG TABLET (FP) PO PRN ×2 (01:12)
[2018-06-03] MEDS ORDERED: BISMUTH SUBSALICYLATE 524 MG/30 ML UD PO PRN (01:12)
[2018-06-03] MEDS ORDERED: hydrOXYzine PAMOATE 25 MG CAPSULE (FP) PO PRN (01:12)
[2018-06-03] MEDS ORDERED: MAGNESIUM HYDROX 2400MG/30ML ORAL SUSPENSION 30 ML CUP PO PRN (01:12)
[2018-06-03] MEDS ORDERED: MENTHOL/PHENOL 1 EACH UD MM PRN (01:12)
[2018-06-03] MEDS ORDERED: METHOCARBAMOL 500 MG TABLET PO PRN (01:12)
[2018-06-03] MEDS ORDERED: chlordiazePOXIDE HCL 25 MG CAPSULE PO PRN (01:12)
[2018-06-03] MEDS: chlordiazePOXIDE HCL 25 MG CAPSULE PO SCH ×4 (06:44→22:02)
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
[2018-06-03] MEDS ORDERED: METHADONE HCL 10 MG TABLET PO ONE (08:36)
[2018-06-03] MEDS ORDERED: METHADONE 40 MG, METHADONE 20 MG PO ONE (09:00)
[2018-06-03] MEDS ORDERED: METHADONE HCL 10 MG TABLET ONE (09:29)
[2018-06-03] MEDS ORDERED: METHADONE HCL 40 MG DISPERSABLE TABLET ONE (09:29)
[2018-06-03] MEDS: NICOTINE 14 MG/24 HOURS TOPICAL PATCH TD SCH (10:05)
[2018-06-03] MEDS: PRENATAL VITAMINS W/ FOLIC ACID TABLET (FP) PO SCH (10:05)
[2018-06-03] MEDS: ESCITALOPRAM OXALATE 20 MG TABLET (FP) PO SCH (11:29)
--- NOTE | 2018-06-03 13:52 | PN ---
S CIWA - CIWA Score Nausea/Vomitin-No Nausea/No Vomiting Muscle Tremors: 3 Anxiety: 3 Agitation: 4-Moderately Restless Paroxysmal Sweats: 3 Orientation: 0-Oriented Tacttile Disturbances: 0-None Auditory Disturbances: 0-None Visual Disturbances: 0-None Headache: 0-None Present CIWA-Ar Total Score: 13 BHS Progress Note (SOAP) Subjective: irritable agitation sweats shakes body aches Objective: 06/03/18 13:51 Vital Signs Temperature 98.1 F 06/03/18 13:16 Pulse Rate 75 06/03/18 13:16 Respiratory Rate 18 06/03/18 13:16 Blood Pressure 149/89 06/03/18 13:16 O2 Sat by Pulse Oximetry (%) labs pending aaox3 ambulating no acute distress Assessment: 06/03/18 13:52 withdrawal sx Plan: continue detox increase fluids pending labs
[2018-06-03] MEDS: traZODone HCL 50 MG TABLET (FP) PO SCH (22:02)
[2018-06-03] MEDS: THIAMINE HCL 100 MG TABLET (FP) PO SCH (22:02)
[2018-06-04] MEDS ORDERED: METHADONE HCL 10 MG TABLET ONE (05:03)
[2018-06-04] MEDS ORDERED: METHADONE HCL 40 MG DISPERSABLE TABLET ONE (05:03)
[2018-06-04] MEDS: chlordiazePOXIDE HCL 25 MG CAPSULE PO SCH ×4 (06:00→22:23)
[2018-06-04] MEDS ORDERED: METHADONE HCL 40 MG DISPERSABLE TABLET PO SCH (06:00)
[2018-06-04] MEDS: METHADONE 40 MG, METHADONE 20 MG PO SCH (06:00)
[2018-06-04] MEDS: PRENATAL VITAMINS W/ FOLIC ACID TABLET (FP) PO SCH (10:25)
[2018-06-04] MEDS: ESCITALOPRAM OXALATE 20 MG TABLET (FP) PO SCH (10:25)
[2018-06-04] MEDS: NICOTINE 14 MG/24 HOURS TOPICAL PATCH TD SCH (10:26)
--- NOTE | 2018-06-04 12:01 | PN ---
S CIWA - CIWA Score Nausea/Vomitin-No Nausea/No Vomiting Muscle Tremors: 3 Anxiety: 3 Agitation: 3 Paroxysmal Sweats: 3 Orientation: 0-Oriented Tacttile Disturbances: 0-None Auditory Disturbances: 0-None Visual Disturbances: 0-None Headache: 0-None Present CIWA-Ar Total Score: 12 BHS Progress Note (SOAP) Subjective: sweats chills body aches irritable Objective: 06/04/18 12:02 Vital Signs Temperature 98.4 F 06/04/18 10:39 Pulse Rate 71 06/04/18 10:39 Respiratory Rate 18 06/04/18 10:39 Blood Pressure 111/71 06/04/18 10:39 O2 Sat by Pulse Oximetry (%) Laboratory Tests 06/03/18 00:55 POC Urine HCG, Qual Negative rest of labs pending aaox3 ambulating no acute distress Assessment: 06/04/18 12:02 withdrawal sx Plan: continue detox increase fluids pending labs
[2018-06-04 12:08] LABS: HEMATOCRIT 40.3 % (32.4-45.2); HEMOGLOBIN 13.1 GM/dL (10.7-15.3); MCH 29.8 pg (25.7-33.7); MCHC 32.6 g/dl (32.0-36.0); MEAN CELL VOLUME 91.2 fl (80-96); MEAN PLT VOLUME 8.5 fl (7.5-11.1); PLATELET COUNT 240 K/MM3 (134-434); RBC 4.42 M/mm3 (3.60-5.2); RDW 15.1 % (11.6-15.6)
[2018-06-04 12:22] LABS: ALBUMIN 3.9 g/dl (3.4-5.0); ALK PHOS 122 U/L (45-117); ANION GAP 5 MMOL/L (8-16); BILIRUBIN,TOTAL 0.7 mg/dL (0.2-1); BLOOD UREA NITROGEN 11 mg/dL (7-18); CHLORIDE 99 mmol/L (98-107); CO2 33 mmol/L (21-32); CREATININE 0.7 mg/dL (0.55-1.3); GLUCOSE,RANDOM 118 mg/dL (74-106); POTASSIUM 4.2 mmol/L (3.5-5.1); SGOT/AST 33 U/L (15-37); SGPT/ALT 37 U/L (13-61); SODIUM 137 mmol/L (136-145); TOT PROT 7.8 g/dl (6.4-8.2)
[2018-06-04] MEDS: THIAMINE HCL 100 MG TABLET (FP) PO SCH (22:23)
[2018-06-04] MEDS: traZODone HCL 50 MG TABLET (FP) PO SCH (22:24)
[2018-06-05] MEDS ORDERED: chlordiazePOXIDE HCL 10 MG CAPSULE PO PRN (05:00)
[2018-06-05] MEDS ORDERED: METHADONE HCL 10 MG TABLET ONE (05:38)
[2018-06-05] MEDS ORDERED: METHADONE HCL 40 MG DISPERSABLE TABLET ONE (05:39)
[2018-06-05] MEDS: METHADONE 40 MG, METHADONE 20 MG PO SCH (05:40)
[2018-06-05] MEDS: chlordiazePOXIDE HCL 10 MG CAPSULE PO SCH ×4 (05:40→22:09)
[2018-06-05] MEDS: ESCITALOPRAM OXALATE 20 MG TABLET (FP) PO SCH (10:06)
[2018-06-05] MEDS: NICOTINE 14 MG/24 HOURS TOPICAL PATCH TD SCH (10:06)
[2018-06-05] MEDS: PRENATAL VITAMINS W/ FOLIC ACID TABLET (FP) PO SCH (10:06)
--- NOTE | 2018-06-05 12:19 | PN ---
S CIWA - CIWA Score Nausea/Vomitin-No Nausea/No Vomiting Muscle Tremors: 3 Anxiety: 2 Agitation: 2 Paroxysmal Sweats: 1-Minimal Palms Moist Orientation: 0-Oriented Tacttile Disturbances: 0-None Auditory Disturbances: 0-None Visual Disturbances: 0-None Headache: 0-None Present CIWA-Ar Total Score: 8 BHS Progress Note (SOAP) Subjective: sweats anxiety Objective: 06/05/18 12:19 Vital Signs Temperature 98.2 F 06/05/18 11:08 Pulse Rate 73 06/05/18 11:08 Respiratory Rate 18 06/05/18 11:08 Blood Pressure 116/53 L 06/05/18 11:08 O2 Sat by Pulse Oximetry (%) aaox3 ambulating no acute distress Assessment: 06/05/18 12:19 mild withdrawal sx Plan: continue detox increase fluids
[2018-06-05] MEDS: THIAMINE HCL 100 MG TABLET (FP) PO SCH (22:09)
[2018-06-05] MEDS: MELATONIN 5 MG TABLETS PO PRN (22:10)
[2018-06-05] MEDS: traZODone HCL 50 MG TABLET (FP) PO SCH (22:10)
[2018-06-06] MEDS ORDERED: METHADONE HCL 10 MG TABLET ONE (04:58)
[2018-06-06] MEDS ORDERED: METHADONE HCL 40 MG DISPERSABLE TABLET ONE (04:58)
[2018-06-06] MEDS: chlordiazePOXIDE HCL 10 MG CAPSULE PO SCH ×2 (05:48→17:42)
[2018-06-06] MEDS: METHADONE 40 MG, METHADONE 20 MG PO SCH (05:48)
[2018-06-06] MEDS: PRENATAL VITAMINS W/ FOLIC ACID TABLET (FP) PO SCH (10:08)
[2018-06-06] MEDS: NICOTINE 14 MG/24 HOURS TOPICAL PATCH TD SCH (10:08)
[2018-06-06] MEDS: ESCITALOPRAM OXALATE 20 MG TABLET (FP) PO SCH (10:08)
--- NOTE | 2018-06-06 11:24 | PN ---
S CIWA - CIWA Score Nausea/Vomitin-No Nausea/No Vomiting Muscle Tremors: 1-None Visible, but [place] Anxiety: 1-Mildly Anxious Agitation: 2 Paroxysmal Sweats: No Perspiration Orientation: 0-Oriented Tacttile Disturbances: 0-None Auditory Disturbances: 0-None Visual Disturbances: 0-None Headache: 0-None Present CIWA-Ar Total Score: 4 BHS Progress Note (SOAP) Subjective: anxiety Objective: 06/06/18 11:22 Vital Signs Temperature 98.6 F 06/06/18 09:25 Pulse Rate 86 06/06/18 09:25 Respiratory Rate 18 06/06/18 09:25 Blood Pressure 92/64 06/06/18 09:25 O2 Sat by Pulse Oximetry (%) aaox3 ambulating no acute distress Assessment: 06/06/18 11:22 mild withdrawal sx Plan: d/c in am at 7am as per pt request pt want to reinstate tomorrow at her [facility] program to bulk picker her saturday bottle.
[2018-06-06] MEDS: THIAMINE HCL 100 MG TABLET (FP) PO SCH (22:15)
[2018-06-06] MEDS: MELATONIN 5 MG TABLETS PO PRN (22:16)
[2018-06-06] MEDS: traZODone HCL 50 MG TABLET (FP) PO SCH (22:17)
[2018-06-07] MEDS ORDERED: METHADONE HCL 10 MG TABLET ONE (04:50)
[2018-06-07] MEDS ORDERED: METHADONE HCL 40 MG DISPERSABLE TABLET ONE (04:50)
[2018-06-07] MEDS: METHADONE 40 MG, METHADONE 20 MG PO SCH (06:05)
[2018-06-07] MEDS: chlordiazePOXIDE HCL 10 MG CAPSULE PO SCH (06:06)
[2018-06-07 07:01] VITALS: BP 123/66; PULSE 74; TEMP 98.1
--- NOTE | 2018-06-07 09:46 | DS ---
[facility] Detox Discharge Summary Admission Date: 06/03/18 Discharge Date: 06/07/18 - History Present History: Alcohol Dependence, [facility] - Physical Exam Results Vital Signs: Vital Signs Temperature 98.1 F 06/07/18 07:00 Pulse Rate 74 06/07/18 07:00 Respiratory Rate 16 06/07/18 07:00 Blood Pressure 123/66 06/07/18 07:00 O2 Sat by Pulse Oximetry (%) - Treatment Hospital Course: Detox Protocol Followed, Detoxed Safely, Responded well, Discharged Condition Good, Rehab Referral Accepted - Medication Discharge Medications: Ambulatory Orders Escitalopram Oxalate [Lexapro -] 20 mg PO DAILY #30 tablet 08/22/17 traZODone HCL [Trazodone HCl] 50 mg PO HS 09/20/17 Albuterol Sulfate Inhaler - [Ventolin HFA Inhaler -] 2 inh PO Q4H PRN #1 inhaler 02/24/18 Tuberculin Ppd 5 Tu/0.1ML [Tubersol ([facility] Only)] 250 tu ID ONCE #1 unit 04/29 - Diagnosis (1) Alcohol dependence with uncomplicated intoxication Status: Chronic (2) Alcohol-induced mood disorder Status: Acute (3) Alcohol-induced sleep disorder Status: Acute (4) Substance induced mood disorder Status: Acute (5) Weight loss Status: Acute (6) Anemia Status: Chronic (7) Asthma Status: Chronic Qualifiers: Asthma severity: mild Asthma persistence: intermittent (8) Bipolar disorder Status: Chronic (9) Cocaine dependence Status: Chronic Qualifiers: Substance use status: uncomplicated Qualified Code(s): F14.20 - Cocaine dependence, uncomplicated (10) Depressive disorder Status: Chronic (11) HIV (human immunodeficiency virus infection) Status: Chronic Qualifiers: HIV symptom status: unspecified Qualified Code(s): B20 - Human immunodeficiency virus [HIV] disease (12) Insomnia secondary to depression with anxiety Status: Chronic (13) 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 (14) MDD (major depressive disorder) Status: Chronic (15) MDD (major depressive disorder) Status: Chronic (16) Methadone maintenance therapy patient Status: Chronic (17) Mood disorder Status: Chronic (18) Nicotine dependence Status: Chronic Qualifiers: Nicotine product type: cigarettes Substance use status: uncomplicated Qualified Code(s): F17.210 - Nicotine dependence, cigarettes, uncomplicated (19) Opioid dependence on agonist therapy Status: Chronic (20) Bipolar disorder Status: Suspected Qualifiers: Active/Remission status: in partial remission Most recent bipolar episode type: mixed Qualified Code(s): F31.77 - Bipolar disorder, in partial remission , most recent episode mixed (21) Drug-induced mood disorder Status: Suspected - AMA Did Patient Leave Against Medical Advice: No (referred to [facility])
== END 2018-06-07 07:23 | disposition home or self-care (01) | DRG 773 ==
LOC: YASAS 22:42 → Y6N 06-03 01:20
PROVIDERS: ADMIT Surgery; ATTEND Surgery
PROC: HZ2ZZZZ Detoxification Services for Substance Abuse Treatment (ICD-10-PCS; principal; 2018-06-03)
DX: F10.230 Alcohol dependence with withdrawal, uncomplicated (principal); F14.20 Cocaine dependence, uncomplicated; F11.20 Opioid dependence, uncomplicated; F17.210 Nicotine dependence, cigarettes, uncomplicated; F10.282 Alcohol dependence with alcohol-induced sleep disorder; F10.24 Alcohol dependence with alcohol-induced mood disorder; F19.24 Other psychoactive substance dependence with psychoactive substance-induced mood disorder; F31.77 Bipolar disorder, in partial remission, most recent episode mixed; F51.05 Insomnia due to other mental disorder; D64.9 Anemia, unspecified; J45.20 Mild intermittent asthma, uncomplicated; K70.9 Alcoholic liver disease, unspecified; R63.4 Abnormal weight loss; Z68.21 Body mass index [BMI] 21.0-21.9, adult
CPT/HCPCS: 36415; 80053; 81025; 85027; 86593

== ENCOUNTER 2018-06-30 12:50 | Inpatient (IN) | payer OTHER ==
[2018-06-30 15:58] VITALS: BMI 21.2
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
[2018-06-30] MEDS ORDERED: IBUPROFEN 400 MG TABLET (FP) PO PRN (18:33)
[2018-06-30] MEDS ORDERED: chlordiazePOXIDE HCL 25 MG CAPSULE PO PRN (18:33)
[2018-06-30] MEDS ORDERED: MENTHOL/PHENOL 1 EACH UD MM PRN (18:33)
[2018-06-30] MEDS ORDERED: chlordiazePOXIDE HCL 25 MG CAPSULE PO ONE (18:33)
[2018-06-30] MEDS ORDERED: hydrOXYzine PAMOATE 25 MG CAPSULE (FP) PO PRN (18:33)
[2018-06-30] MEDS ORDERED: traZODone HCL 50 MG TABLET (FP) PO PRN (18:33)
[2018-06-30] MEDS ORDERED: METHOCARBAMOL 500 MG TABLET PO PRN (18:33)
[2018-06-30] MEDS ORDERED: MAG HYDROX/AL HYDROX/SIMETH 30 ML UNIT-DOSE CUP PO PRN (18:33)
[2018-06-30] MEDS ORDERED: MAGNESIUM CITRATE 300 ML BOTTLE PO PRN (18:33)
[2018-06-30] MEDS ORDERED: BISMUTH SUBSALICYLATE 524 MG/30 ML UD PO PRN (18:33)
[2018-06-30] MEDS ORDERED: ACETAMINOPHEN 325 MG TABLET (FP) PO PRN ×2 (18:33)
[2018-06-30] MEDS ORDERED: MELATONIN 5 MG TABLETS PO PRN (18:33)
[2018-06-30] MEDS ORDERED: MAGNESIUM HYDROX 2400MG/30ML ORAL SUSPENSION 30 ML CUP PO PRN (18:33)
[2018-06-30] MEDS ORDERED: ONDANSETRON *ODT* 4 MG TABLET SL ONE (22:43)
[2018-06-30] MEDS: THIAMINE HCL 100 MG TABLET (FP) PO SCH (23:07)
[2018-06-30] MEDS: chlordiazePOXIDE HCL 25 MG CAPSULE PO SCH (23:07)
[2018-07-01] MEDS: chlordiazePOXIDE HCL 25 MG CAPSULE PO SCH ×4 (05:34→22:05)
[2018-07-01] MEDS ORDERED: ESCITALOPRAM OXALATE 10 MG TABLET (FP) ONE (08:12)
[2018-07-01] MEDS ORDERED: METHADONE HCL 10 MG TABLET ONE (09:51)
[2018-07-01] MEDS ORDERED: METHADONE HCL 40 MG DISPERSABLE TABLET ONE (09:52)
[2018-07-01] MEDS ORDERED: METHADONE HCL 10 MG TABLET PO ONE (10:00)
[2018-07-01] MEDS ORDERED: METHADONE 40 MG, METHADONE 30 MG PO ONE (10:00)
[2018-07-01] MEDS: PRENATAL VITAMINS W/ FOLIC ACID TABLET (FP) PO SCH (10:03)
[2018-07-01] MEDS: ESCITALOPRAM OXALATE 20 MG TABLET (FP) PO SCH (10:03)
[2018-07-01 10:04] LABS: HEMATOCRIT 39.5 % (32.4-45.2); HEMOGLOBIN 12.8 GM/dL (10.7-15.3); MCH 29.4 pg (25.7-33.7); MCHC 32.4 g/dl (32.0-36.0); MEAN CELL VOLUME 90.8 fl (80-96); MEAN PLT VOLUME 8.5 fl (7.5-11.1); PLATELET COUNT 198 K/MM3 (134-434); RBC 4.36 M/mm3 (3.60-5.2); RDW 16.1 % (11.6-15.6); WHITE BLOOD COUNT 3.4 K/mm3 (4.0-10.0)
[2018-07-01] MEDS: NICOTINE 14 MG/24 HOURS TOPICAL PATCH TD SCH (10:04)
[2018-07-01 10:11] LABS: BILIRUBIN,TOTAL 0.8 mg/dL (0.2-1); CALCIUM 9.6 mg/dL (8.5-10.1); CREATININE 0.8 mg/dL (0.55-1.3); TOT PROT 7.8 g/dl (6.4-8.2)
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
--- NOTE | 2018-07-01 12:45 | PN ---
[facility] CIWA - CIWA Score Nausea/Vomitin-Mild Nausea/No Vomiting Muscle Tremors: 4-Moderate,w/Arms Extend Anxiety: 3 Agitation: 4-Moderately Restless Paroxysmal Sweats: 1-Minimal Palms Moist Orientation: 2-Disoriented Date<2 days Tacttile Disturbances: 0-None Auditory Disturbances: 0-None Visual Disturbances: 0-None Headache: 1-Very Mild CIWA-Ar Total Score: 16 S Progress Note (SOAP) Subjective: doing ok with librium detox protocol headaches tired low energy tremor Objective: 07/01/18 12:46 Vital Signs Temperature 97.7 F 07/01/18 09:14 Pulse Rate 80 07/01/18 11:00 Respiratory Rate 18 07/01/18 11:00 Blood Pressure 114/70 07/01/18 09:14 O2 Sat by Pulse Oximetry (%) Laboratory Last Values WBC 3.4 K/mm3 (4.0-10.0) L 07/01/18 07:00 RBC 4.36 M/mm3 (3.60-5.2) 07/01/18 07:00 Hgb 12.8 GM/dL (10.7-15.3) 07/01/18 07:00 Hct 39.5 % (32.4-45.2) 07/01/18 07:00 MCV 90.8 fl (80-96) 07/01/18 07:00 MCH 29.4 pg (25.7-33.7) 07/01/18 07:00 MCHC 32.4 g/dl (32.0-36.0) 07/01/18 07:00 RDW 16.1 % (11.6-15.6) H 07/01/18 07:00 Plt Count 198 K/MM3 (134-434) 07/01/18 07:00 MPV 8.5 fl (7.5-11.1) 07/01/18 07:00 Sodium 137 mmol/L (136-145) 07/01/18 07:00 Potassium 5.0 mmol/L (3.5-5.1) 07/01/18 07:00 Chloride 99 mmol/L (98-107) 07/01/18 07:00 Carbon Dioxide 35 mmol/L (21-32) H 07/01/18 07:00 Anion Gap 2 MMOL/L (8-16) L 07/01/18 07:00 BUN 18 mg/dL (7-18) 07/01/18 07:00 Creatinine 0.8 mg/dL (0.55-1.3) 07/01/18 07:00 Est GFR (CKD-EPI)AfAm 93.53 07/01/18 07:00 Est GFR (CKD-EPI)NonAf 80.70 07/01/18 07:00 Random Glucose 121 mg/dL (74-106) H 07/01/18 07:00 Calcium 9.6 mg/dL (8.5-10.1) 07/01/18 07:00 Total Bilirubin 0.8 mg/dL (0.2-1) 07/01/18 07:00 AST 44 U/L (15-37) H 07/01/18 07:00 ALT 43 U/L (13-61) 07/01/18 07:00 Alkaline Phosphatase 126 U/L (45-117) H 07/01/18 07:00 Total Protein 7.8 g/dl (6.4-8.2) 07/01/18 07:00 Albumin 4.0 g/dl (3.4-5.0) 07/01/18 07:00 RPR Titer Nonreactive (NONREACTIVE) 07/01/18 07:00 lab noted Assessment: 07/01/18 12:46 withdrawal sx Plan: continue detox methadone 70 mg po daily
[2018-07-01 13:39] LABS: EPI CELLS 0.2 /HPF (0-5/HPF); HYALINE CASTS 2 /lpf (0-8); URINE APPEARANCE CLEAR; URINE BACTERIA 2.4 /hpf (NEGATIVE); URINE BILIRUBIN NEGATIVE (NEGATIVE); URINE COLOR YELLOW; URINE GLUCOSE (UA) NEGATIVE (NEGATIVE); URINE KETONE NEGATIVE (NEGATIVE); URINE LEUK ESTERASE NEGATIVE (NEGATIVE); URINE NITRITE NEGATIVE (NEGATIVE); URINE PROTEIN NEGATIVE (NEGATIVE); URINE RBC 2 /hpf (0-4); URINE UROBILINOGEN 0.2 mg/dL (0.2-1.0); URINE WBC 1 /hpf (0-5)
[2018-07-01 13:40] LABS: HCG,QUALITATIVE URINE NEGATIVE
[2018-07-01] MEDS ORDERED: guaiFENesin 200 MG/10 ML 10 ML UNIT-DOSE CUPS PO PRN (17:15)
[2018-07-01] MEDS: ALBUTEROL SO4 8 GM HFA INHALER IH PRN (19:13)
[2018-07-01] MEDS: traZODone HCL 50 MG TABLET (FP) PO SCH (22:05)
[2018-07-01] MEDS: THIAMINE HCL 100 MG TABLET (FP) PO SCH (22:06)
[2018-07-02] MEDS ORDERED: METHADONE HCL 40 MG DISPERSABLE TABLET ONE (04:02)
[2018-07-02] MEDS ORDERED: METHADONE HCL 10 MG TABLET ONE (04:02)
[2018-07-02] MEDS ORDERED: METHADONE HCL 10 MG TABLET PO SCH (06:00)
[2018-07-02] MEDS: chlordiazePOXIDE HCL 25 MG CAPSULE PO SCH ×3 (06:08→17:24)
[2018-07-02] MEDS: METHADONE 40 MG, METHADONE 30 MG PO SCH (06:08)
[2018-07-02] MEDS ORDERED: ESCITALOPRAM OXALATE 10 MG TABLET (FP) ONE (09:48)
[2018-07-02] MEDS: ESCITALOPRAM OXALATE 20 MG TABLET (FP) PO SCH (10:01)
[2018-07-02] MEDS: PRENATAL VITAMINS W/ FOLIC ACID TABLET (FP) PO SCH (10:01)
[2018-07-02] MEDS: NICOTINE 14 MG/24 HOURS TOPICAL PATCH TD SCH (10:01)
--- NOTE | 2018-07-02 12:27 | PN ---
[facility] CIWA - CIWA Score Nausea/Vomitin-No Nausea/No Vomiting Muscle Tremors: None Anxiety: 2 Agitation: 0-Normal Activity Paroxysmal Sweats: 2 Orientation: 0-Oriented Tacttile Disturbances: 1-Very Mild Itch/Numbness Auditory Disturbances: 2-Mild Harshness/Frighten Visual Disturbances: 2-Mild Sensitivity Headache: 0-None Present CIWA-Ar Total Score: 9 S Progress Note (SOAP) Subjective: Constipation, Stomach Cramping, Sweating. Objective: PATIENT A & O X 3, OBSERVED AMBULATING ON UNIT UNASSISTED. IN NO ACUTE DISTRESS. 07/02/18 12:25 Vital Signs Temperature 96.2 F L 07/02/18 09:33 Pulse Rate 62 07/02/18 09:33 Respiratory Rate 18 07/02/18 09:33 Blood Pressure 114/72 07/02/18 09:33 O2 Sat by Pulse Oximetry (%) Laboratory Tests 06/30/18 07/01/18 07/01/18 10:48 07:00 07:00 WBC 3.4 L RBC 4.36 Hgb 12.8 Hct 39.5 MCV 90.8 MCH 29.4 MCHC 32.4 RDW 16.1 H Plt Count 198 MPV 8.5 Sodium 137 Potassium 5.0 Chloride 99 Carbon Dioxide 35 H Anion Gap 2 L BUN 18 Creatinine 0.8 Est GFR (CKD-EPI)AfAm 93.53 Est GFR (CKD-EPI)NonAf 80.70 Random Glucose 121 H Calcium 9.6 Total Bilirubin 0.8 AST 44 H ALT 43 Alkaline Phosphatase 126 H Total Protein 7.8 Albumin 4.0 Urine Color Yellow Urine Appearance Clear Urine pH 5.0 D Ur Specific [place] 1.009 L Urine Protein Negative Urine Glucose (UA) Negative Urine Ketones Negative Urine Blood Trace Urine Nitrite Negative Urine Bilirubin Negative Urine Urobilinogen 0.2 Ur Leukocyte Esterase Negative Urine WBC (Auto) 1 Urine RBC (Auto) 2 Urine Casts (Auto) 2 U Epithel Cells (Auto) 0.2 Urine Bacteria (Auto) 2.4 Urine HCG, Qual Negative RPR Titer 07/01/18 07:00 WBC RBC Hgb Hct MCV MCH MCHC RDW Plt Count MPV Sodium Potassium Chloride Carbon Dioxide Anion Gap BUN Creatinine Est GFR (CKD-EPI)AfAm Est GFR (CKD-EPI)NonAf Random Glucose Calcium Total Bilirubin AST ALT Alkaline Phosphatase Total Protein Albumin Urine Color Urine Appearance Urine pH Ur Specific [place] Urine Protein Urine Glucose (UA) Urine Ketones Urine Blood Urine Nitrite Urine Bilirubin Urine Urobilinogen Ur Leukocyte Esterase Urine WBC (Auto) Urine RBC (Auto) Urine Casts (Auto) U Epithel Cells (Auto) Urine Bacteria (Auto) Urine HCG, Qual RPR Titer Nonreactive LABS NOTED. PATIENT HAS HAD LOW WBC AND ELEVATED LIVER ENZYME LEVELS ON PREVIOUS ADMISSIONS. 07/02/18 12:28 Assessment: 07/02/18 12:25 WITHDRAWAL SYMPTOMS. LEUKOPENIA. ELEVATED LIVER ENZYMES (AST, AP). 07/02/18 12:28 Plan: CONTINUE DETOX. INCREASE DAILY PO FLUID / WATER INTAKE. PRN MOM FOR CONSTIPATION.
[2018-07-02] MEDS: THIAMINE HCL 100 MG TABLET (FP) PO SCH (22:27)
[2018-07-02] MEDS: traZODone HCL 50 MG TABLET (FP) PO SCH (22:27)
[2018-07-02] MEDS: chlordiazePOXIDE HCL 10 MG CAPSULE PO SCH (22:27)
[2018-07-02] MEDS ORDERED: chlordiazePOXIDE HCL 10 MG CAPSULE PO PRN (23:00)
[2018-07-03] MEDS ORDERED: METHADONE HCL 10 MG TABLET ONE (04:38)
[2018-07-03] MEDS ORDERED: METHADONE HCL 40 MG DISPERSABLE TABLET ONE (04:39)
[2018-07-03] MEDS: METHADONE 40 MG, METHADONE 30 MG PO SCH (05:57)
[2018-07-03] MEDS: chlordiazePOXIDE HCL 10 MG CAPSULE PO SCH ×4 (05:57→22:21)
[2018-07-03] MEDS ORDERED: ESCITALOPRAM OXALATE 10 MG TABLET (FP) ONE (09:45)
[2018-07-03] MEDS: PRENATAL VITAMINS W/ FOLIC ACID TABLET (FP) PO SCH (10:18)
[2018-07-03] MEDS: ESCITALOPRAM OXALATE 20 MG TABLET (FP) PO SCH (10:18)
[2018-07-03] MEDS: ALBUTEROL SO4 8 GM HFA INHALER IH PRN (10:19)
[2018-07-03] MEDS: NICOTINE 14 MG/24 HOURS TOPICAL PATCH TD SCH (10:20)
--- NOTE | 2018-07-03 16:06 | PN ---
S CIWA - CIWA Score Nausea/Vomitin-Mild Nausea/No Vomiting Muscle Tremors: 2 Anxiety: 1-Mildly Anxious Agitation: 1-Slight > Activity Paroxysmal Sweats: 1-Minimal Palms Moist Orientation: 0-Oriented Tacttile Disturbances: 0-None Auditory Disturbances: 0-None Visual Disturbances: 0-None Headache: 0-None Present CIWA-Ar Total Score: 6 BHS Progress Note (SOAP) Subjective: doing better today social with peers in day room tolerate food and fluid well Objective: 07/03/18 16:06 Vital Signs Temperature 97.7 F 07/03/18 13:28 Pulse Rate 71 07/03/18 13:28 Respiratory Rate 18 07/03/18 13:28 Blood Pressure 107/71 07/03/18 13:28 O2 Sat by Pulse Oximetry (%) Laboratory Last Values WBC 3.4 K/mm3 (4.0-10.0) L 07/01/18 07:00 RBC 4.36 M/mm3 (3.60-5.2) 07/01/18 07:00 Hgb 12.8 GM/dL (10.7-15.3) 07/01/18 07:00 Hct 39.5 % (32.4-45.2) 07/01/18 07:00 MCV 90.8 fl (80-96) 07/01/18 07:00 MCH 29.4 pg (25.7-33.7) 07/01/18 07:00 MCHC 32.4 g/dl (32.0-36.0) 07/01/18 07:00 RDW 16.1 % (11.6-15.6) H 07/01/18 07:00 Plt Count 198 K/MM3 (134-434) 07/01/18 07:00 MPV 8.5 fl (7.5-11.1) 07/01/18 07:00 Sodium 137 mmol/L (136-145) 07/01/18 07:00 Potassium 5.0 mmol/L (3.5-5.1) 07/01/18 07:00 Chloride 99 mmol/L (98-107) 07/01/18 07:00 Carbon Dioxide 35 mmol/L (21-32) H 07/01/18 07:00 Anion Gap 2 MMOL/L (8-16) L 07/01/18 07:00 BUN 18 mg/dL (7-18) 07/01/18 07:00 Creatinine 0.8 mg/dL (0.55-1.3) 07/01/18 07:00 Est GFR (CKD-EPI)AfAm 93.53 07/01/18 07:00 Est GFR (CKD-EPI)NonAf 80.70 07/01/18 07:00 Random Glucose 121 mg/dL (74-106) H 07/01/18 07:00 Calcium 9.6 mg/dL (8.5-10.1) 07/01/18 07:00 Total Bilirubin 0.8 mg/dL (0.2-1) 07/01/18 07:00 AST 44 U/L (15-37) H 07/01/18 07:00 ALT 43 U/L (13-61) 07/01/18 07:00 Alkaline Phosphatase 126 U/L (45-117) H 07/01/18 07:00 Total Protein 7.8 g/dl (6.4-8.2) 07/01/18 07:00 Albumin 4.0 g/dl (3.4-5.0) 07/01/18 07:00 Urine Color Yellow 06/30/18 10:48 Urine Appearance Clear 06/30/18 10:48 Urine pH 5.0 (5.0-8.0) D 06/30/18 10:48 Ur Specific [place] 1.009 (1.010-1.035) L 06/30/18 10:48 Urine Protein Negative (NEGATIVE) 06/30/18 10:48 Urine Glucose (UA) Negative (NEGATIVE) 06/30/18 10:48 Urine Ketones Negative (NEGATIVE) 06/30/18 10:48 Urine Blood Trace (NEGATIVE) 06/30/18 10:48 Urine Nitrite Negative (NEGATIVE) 06/30/18 10:48 Urine Bilirubin Negative (NEGATIVE) 06/30/18 10:48 Urine Urobilinogen 0.2 mg/dL (0.2-1.0) 06/30/18 10:48 Ur Leukocyte Esterase Negative (NEGATIVE) 06/30/18 10:48 Urine WBC (Auto) 1 /hpf (0-5) 06/30/18 10:48 Urine RBC (Auto) 2 /hpf (0-4) 06/30/18 10:48 Urine Casts (Auto) 2 /lpf (0-8) 06/30/18 10:48 U Epithel Cells (Auto) 0.2 /HPF (0-5/HPF) 06/30/18 10:48 Urine Bacteria (Auto) 2.4 /hpf (NEGATIVE) 06/30/18 10:48 Urine HCG, Qual Negative 06/30/18 10:48 RPR Titer Nonreactive (NONREACTIVE) 07/01/18 07:00 lab noted patient agrees to bring in lab report to infectious disease specialist for low wbc follow up 07/03/18 16:07 Assessment: 07/03/18 16:07 withdrawal sx Plan: continue detox
[2018-07-03] MEDS: THIAMINE HCL 100 MG TABLET (FP) PO SCH (22:20)
[2018-07-03] MEDS: traZODone HCL 50 MG TABLET (FP) PO SCH (22:23)
[2018-07-04] MEDS ORDERED: METHADONE HCL 40 MG DISPERSABLE TABLET ONE (04:44)
[2018-07-04] MEDS ORDERED: METHADONE HCL 10 MG TABLET ONE (04:44)
[2018-07-04] MEDS: METHADONE 40 MG, METHADONE 30 MG PO SCH (05:30)
[2018-07-04 06:37] VITALS: TEMP 97.5
[2018-07-04] MEDS ORDERED: ESCITALOPRAM OXALATE 10 MG TABLET (FP) ONE (08:12)
[2018-07-04 09:16] VITALS: BP 91/65; PULSE 72
[2018-07-04] MEDS: ESCITALOPRAM OXALATE 20 MG TABLET (FP) PO SCH (10:11)
[2018-07-04] MEDS: chlordiazePOXIDE HCL 10 MG CAPSULE PO SCH (10:11)
[2018-07-04] MEDS: PRENATAL VITAMINS W/ FOLIC ACID TABLET (FP) PO SCH (10:11)
[2018-07-04] MEDS: NICOTINE 14 MG/24 HOURS TOPICAL PATCH TD SCH (10:12)
--- NOTE | 2018-07-04 14:42 | DS ---
[facility] Detox Discharge Summary Admission Date: 06/30/18 Discharge Date: 07/04/18 - History Present History: Alcohol Dependence, Opioid Dependence, MMTP Additional Comments: PATIENT GOING TO [facility] ([facility]) FOR AFTERCARE. PATIENT WAS DISCHARGED FROM DETOX UNIT TO BE TAKEN OVER TO REHAB UNIT IN STABLE MEDICAL CONDITION. Pertinent Past History: Asthma, History Of Major Depressive Disorder, H.I.V., Nicotine Dependence, History Of Liver Disease, M.M.T.P. - Physical Exam Results Vital Signs: Vital Signs Temperature 97.5 F L 07/04/18 09:16 Pulse Rate 72 07/04/18 09:16 Respiratory Rate 18 07/04/18 09:16 Blood Pressure 91/65 07/04/18 09:16 O2 Sat by Pulse Oximetry (%) Pertinent Admission Physical Exam Findings: WITHDRAWAL SYMPTOMS. Laboratory Tests 06/30/18 07/01/18 07/01/18 10:48 07:00 07:00 WBC 3.4 L RBC 4.36 Hgb 12.8 Hct 39.5 MCV 90.8 MCH 29.4 MCHC 32.4 RDW 16.1 H Plt Count 198 MPV 8.5 Sodium 137 Potassium 5.0 Chloride 99 Carbon Dioxide 35 H Anion Gap 2 L BUN 18 Creatinine 0.8 Est GFR (CKD-EPI)AfAm 93.53 Est GFR (CKD-EPI)NonAf 80.70 Random Glucose 121 H Calcium 9.6 Total Bilirubin 0.8 AST 44 H ALT 43 Alkaline Phosphatase 126 H Total Protein 7.8 Albumin 4.0 Urine Color Yellow Urine Appearance Clear Urine pH 5.0 D Ur Specific [place] 1.009 L Urine Protein Negative Urine Glucose (UA) Negative Urine Ketones Negative Urine Blood Trace Urine Nitrite Negative Urine Bilirubin Negative Urine Urobilinogen 0.2 Ur Leukocyte Esterase Negative Urine WBC (Auto) 1 Urine RBC (Auto) 2 Urine Casts (Auto) 2 U Epithel Cells (Auto) 0.2 Urine Bacteria (Auto) 2.4 Urine HCG, Qual Negative RPR Titer 07/01/18 07:00 WBC RBC Hgb Hct MCV MCH MCHC RDW Plt Count MPV Sodium Potassium Chloride Carbon Dioxide Anion Gap BUN Creatinine Est GFR (CKD-EPI)AfAm Est GFR (CKD-EPI)NonAf Random Glucose Calcium Total Bilirubin AST ALT Alkaline Phosphatase Total Protein Albumin Urine Color Urine Appearance Urine pH Ur Specific [place] Urine Protein Urine Glucose (UA) Urine Ketones Urine Blood Urine Nitrite Urine Bilirubin Urine Urobilinogen Ur Leukocyte Esterase Urine WBC (Auto) Urine RBC (Auto) Urine Casts (Auto) U Epithel Cells (Auto) Urine Bacteria (Auto) Urine HCG, Qual RPR Titer Nonreactive LABS NOTED. - Treatment Hospital Course: Detox Protocol Followed, Detoxed Safely, Responded well, Discharged Condition Good, Rehab Referral Accepted Patient has Accepted a Rehab Referral to: [facility] ([place], [place]). - Medication Discharge Medications: Ambulatory Orders Escitalopram Oxalate [Lexapro -] 20 mg PO DAILY #30 tablet 08/22/17 traZODone HCL [Trazodone HCl] 50 mg PO HS 09/20/17 Albuterol Sulfate Inhaler - [Ventolin HFA Inhaler -] 2 inh PO Q4H PRN #1 inhaler 02/24/18 Methadone [Dolophine -] 70 mg PO DAILY 06/30/18 - Diagnosis (1) Alcohol dependence with uncomplicated intoxication Status: Chronic (2) Asthma Status: Chronic Qualifiers: Asthma severity: mild Asthma persistence: intermittent Asthma complication type: uncomplicated Qualified Code(s): J45.20 - Mild intermittent asthma, uncomplicated (3) HIV (human immunodeficiency virus infection) Status: Chronic Qualifiers: HIV symptom status: unspecified Qualified Code(s): B20 - Human immunodeficiency virus [HIV] disease (4) 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 (5) MDD (major depressive disorder) Status: Chronic Qualifiers: Major depression recurrence: unspecified whether recurrent Active/ Remission status: remission status unspecified Qualified Code(s): F32.9 - Major depressive disorder, single episode, unspecified (6) Methadone maintenance therapy patient Status: Chronic (7) Nicotine dependence Status: Chronic Qualifiers: Nicotine product type: cigarettes Substance use status: uncomplicated Qualified Code(s): F17.210 - Nicotine dependence, cigarettes, uncomplicated (8) Insomnia Status: Chronic Qualifiers: Insomnia type: unspecified Qualified Code(s): G47.00 - Insomnia, unspecified (9) MDD (major depressive disorder) Status: Chronic Qualifiers: Major depression recurrence: unspecified whether recurrent (10) Substance induced mood disorder Status: Chronic (11) Opioid dependence on agonist therapy Status: Chronic - AMA Did Patient Leave Against Medical Advice: No
== END 2018-07-04 12:01 | disposition other institution (70) | DRG 773 ==
LOC: YASAS 12:50 → Y3N 19:36
PROVIDERS: ADMIT Surgery; ATTEND Surgery
PROC: HZ2ZZZZ Detoxification Services for Substance Abuse Treatment (ICD-10-PCS; principal; 2018-06-30)
DX: F10.230 Alcohol dependence with withdrawal, uncomplicated (principal); F11.20 Opioid dependence, uncomplicated; F17.210 Nicotine dependence, cigarettes, uncomplicated; F33.9 Major depressive disorder, recurrent, unspecified; F19.24 Other psychoactive substance dependence with psychoactive substance-induced mood disorder; F31.9 Bipolar disorder, unspecified; Z21 Asymptomatic human immunodeficiency virus [HIV] infection status; J45.20 Mild intermittent asthma, uncomplicated; K70.9 Alcoholic liver disease, unspecified; G47.00 Insomnia, unspecified; R94.5 Abnormal results of liver function studies; D72.818 Other decreased white blood cell count; D64.9 Anemia, unspecified
CPT/HCPCS: 36415; 80053; 81003; 84703; 85027; 86593; Q0162

== ENCOUNTER 2018-07-04 11:52 | Inpatient (IN) | payer OTHER | END 2018-07-04 17:05 | disposition left against medical advice (07) | LOC: YASAS 11:52 → Y3E 11:53 ==

== ENCOUNTER 2018-08-02 09:34 | Inpatient (IN) | payer OTHER ==
[2018-08-02 11:49] VITALS: BMI 21.0
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
[2018-08-02] MEDS ORDERED: METHOCARBAMOL 500 MG TABLET PO PRN (12:52)
[2018-08-02] MEDS ORDERED: chlordiazePOXIDE HCL 25 MG CAPSULE PO PRN (12:52)
[2018-08-02] MEDS ORDERED: IBUPROFEN 400 MG TABLET (FP) PO PRN (12:52)
[2018-08-02] MEDS ORDERED: BISMUTH SUBSALICYLATE 524 MG/30 ML UD PO PRN (12:52)
[2018-08-02] MEDS ORDERED: MENTHOL/PHENOL 1 EACH UD MM PRN (12:52)
[2018-08-02] MEDS ORDERED: MAGNESIUM CITRATE 300 ML BOTTLE PO PRN (12:52)
[2018-08-02] MEDS ORDERED: MAG HYDROX/AL HYDROX/SIMETH 30 ML UNIT-DOSE CUP PO PRN (12:52)
[2018-08-02] MEDS ORDERED: hydrOXYzine PAMOATE 25 MG CAPSULE (FP) PO PRN (12:52)
[2018-08-02] MEDS ORDERED: ACETAMINOPHEN 325 MG TABLET (FP) PO PRN ×2 (12:52)
[2018-08-02] MEDS: NICOTINE 14 MG/24 HOURS TOPICAL PATCH TD SCH (15:02)
[2018-08-02] MEDS: chlordiazePOXIDE HCL 25 MG CAPSULE PO SCH ×2 (17:42→22:06)
[2018-08-02] MEDS: MELATONIN 5 MG TABLETS PO PRN (22:06)
[2018-08-02] MEDS: THIAMINE HCL 100 MG TABLET (FP) PO SCH (22:06)
[2018-08-02] MEDS ORDERED: cloNIDine HCL 0.1 MG TABLET PO ONE (23:31)
--- NOTE | 2018-08-02 23:33 | PN ---
S Progress Note Note: Patient's blood pressure is B/P 155/101. Patient is asymptomatic Vital Signs Temperature 98.1 F 08/02/18 22:06 Pulse Rate 82 08/02/18 23:28 Respiratory Rate 16 08/02/18 23:28 Blood Pressure 155/101 H 08/02/18 23:28 O2 Sat by Pulse Oximetry (%) Action: Clonidine 0.1mg tablet oral ordered
[2018-08-03] MEDS ORDERED: METHADONE HCL 40 MG DISPERSABLE TABLET ONE (04:14)
[2018-08-03] MEDS ORDERED: METHADONE HCL 10 MG TABLET ONE (04:14)
[2018-08-03] MEDS: chlordiazePOXIDE HCL 25 MG CAPSULE PO SCH ×4 (05:42→22:14)
[2018-08-03] MEDS ORDERED: METHADONE 40 MG, METHADONE 30 MG PO ONE (06:00)
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
[2018-08-03] MEDS ORDERED: METHADONE HCL 40 MG DISPERSABLE TABLET PO SCH (10:00)
[2018-08-03] MEDS ORDERED: METHADONE 40 MG, METHADONE 30 MG PO SCH (10:00)
[2018-08-03] MEDS: NICOTINE 14 MG/24 HOURS TOPICAL PATCH TD SCH (10:28)
[2018-08-03] MEDS: PRENATAL VITAMINS W/ FOLIC ACID TABLET (FP) PO SCH (10:29)
[2018-08-03 10:43] LABS: HEMATOCRIT 36.6 % (32.4-45.2); HEMOGLOBIN 12.1 GM/dL (10.7-15.3); MCH 29.4 pg (25.7-33.7); MCHC 33.1 g/dl (32.0-36.0); MEAN CELL VOLUME 88.7 fl (80-96); MEAN PLT VOLUME 8.3 fl (7.5-11.1); PLATELET COUNT 250 K/MM3 (134-434); RBC 4.12 M/mm3 (3.60-5.2); RDW 15.1 % (11.6-15.6); WHITE BLOOD COUNT 3.8 K/mm3 (4.0-10.0)
[2018-08-03 10:48] LABS: ALBUMIN 3.9 g/dl (3.4-5.0); BILIRUBIN,TOTAL 0.6 mg/dL (0.2-1); BLOOD UREA NITROGEN 14.6 mg/dL (7-18); CALCIUM 9.9 mg/dL (8.5-10.1); CREATININE 0.6 mg/dL (0.55-1.3); POTASSIUM 4.5 mmol/L (3.5-5.1); TOT PROT 7.4 g/dl (6.4-8.2)
[2018-08-03] MEDS: MAGNESIUM HYDROX 2400MG/30ML ORAL SUSPENSION 30 ML CUP PO PRN (14:18)
[2018-08-03] MEDS: ALBUTEROL SO4 8 GM HFA INHALER IH PRN (15:17)
--- NOTE | 2018-08-03 16:49 | PN ---
[facility] CIWA - CIWA Score Nausea/Vomitin-Mild Nausea/No Vomiting Muscle Tremors: 4-Moderate,w/Arms Extend Anxiety: 4-Mod. Anxious/Guarded Agitation: 3 Paroxysmal Sweats: 3 Orientation: 0-Oriented Tacttile Disturbances: 0-None Auditory Disturbances: 0-None Visual Disturbances: 0-None Headache: 0-None Present CIWA-Ar Total Score: 15 BHS Progress Note (SOAP) Subjective: Sweating, anxious, restless, interrupted sleep; c/o urgency and frequency with micturition Objective: 08/03/18 16:44 Last Vital Signs Temp Pulse Resp BP Pulse Ox 97.9 F 69 18 109/76 08/03/18 14:24 08/03/18 14:24 08/03/18 14:24 08/03/18 14:24 Laboratory Tests 08/03/18 08/03/18 08/03/18 08:00 08:00 08:00 WBC 3.8 L RBC 4.12 Hgb 12.1 Hct 36.6 MCV 88.7 MCH 29.4 MCHC 33.1 RDW 15.1 Plt Count 250 D MPV 8.3 Sodium 136 Potassium 4.5 Chloride 100 Carbon Dioxide 29 Anion Gap 7 L BUN 14.6 Creatinine 0.6 Est GFR (CKD-EPI)AfAm 115.63 Est GFR (CKD-EPI)NonAf 99.77 Random Glucose 91 Calcium 9.9 Total Bilirubin 0.6 AST 28 ALT 31 Alkaline Phosphatase 114 Total Protein 7.4 Albumin 3.9 RPR Titer Nonreactive Labs reviewed Assessment: 08/03/18 16:46 Withdrawal symptoms C/O urgency and frequency with urination Plan: Continue detox Encouraged PO water intake Polyuria: send UA and Urine cx stat to rule out UTI
[2018-08-03] MEDS: THIAMINE HCL 100 MG TABLET (FP) PO SCH (22:14)
[2018-08-03] MEDS: traZODone HCL 50 MG TABLET (FP) PO SCH (22:14)
[2018-08-03 23:18] LABS: EPI CELLS 11.3 /HPF (0-5/HPF); HYALINE CASTS 0 /lpf (0-8); URINE APPEARANCE CLEAR; URINE BACTERIA 225.7 /hpf (NEGATIVE); URINE BILIRUBIN NEGATIVE (NEGATIVE); URINE COLOR YELLOW; URINE GLUCOSE (UA) NEGATIVE (NEGATIVE); URINE KETONE NEGATIVE (NEGATIVE); URINE LEUK ESTERASE TRACE (NEGATIVE); URINE NITRITE NEGATIVE (NEGATIVE); URINE PROTEIN NEGATIVE (NEGATIVE); URINE RBC 1 /hpf (0-4); URINE WBC 4 /hpf (0-5)
[2018-08-04] MEDS: chlordiazePOXIDE HCL 25 MG CAPSULE PO SCH ×2 (05:26→11:13)
[2018-08-04] MEDS ORDERED: METHADONE HCL 10 MG TABLET PO ONE (09:06)
[2018-08-04] MEDS ORDERED: METHADONE 40 MG, METHADONE 30 MG PO ONE (09:20)
[2018-08-04] MEDS ORDERED: METHADONE HCL 10 MG TABLET ONE (09:48)
[2018-08-04] MEDS ORDERED: METHADONE HCL 40 MG DISPERSABLE TABLET ONE (09:49)
[2018-08-04] MEDS: PRENATAL VITAMINS W/ FOLIC ACID TABLET (FP) PO SCH (11:13)
[2018-08-04] MEDS: NICOTINE 14 MG/24 HOURS TOPICAL PATCH TD SCH (11:13)
--- NOTE | 2018-08-04 14:00 | PN ---
[facility] CIWA - CIWA Score Nausea/Vomitin-No Nausea/No Vomiting Muscle Tremors: 2 Anxiety: 3 Agitation: 3 Paroxysmal Sweats: 2 Orientation: 0-Oriented Tacttile Disturbances: 0-None Auditory Disturbances: 0-None Visual Disturbances: 0-None Headache: 0-None Present CIWA-Ar Total Score: 10 S Progress Note (SOAP) Subjective: sweats body aches chills interrupted sleep Objective: 08/04/18 13:57 Vital Signs Temperature 97.7 F 08/04/18 09:23 Pulse Rate 79 08/04/18 09:23 Respiratory Rate 18 08/04/18 09:23 Blood Pressure 108/80 08/04/18 09:23 O2 Sat by Pulse Oximetry (%) Laboratory Tests 08/03/18 08/03/18 08/03/18 08:00 08:00 08:00 WBC 3.8 L RBC 4.12 Hgb 12.1 Hct 36.6 MCV 88.7 MCH 29.4 MCHC 33.1 RDW 15.1 Plt Count 250 D MPV 8.3 Sodium 136 Potassium 4.5 Chloride 100 Carbon Dioxide 29 Anion Gap 7 L BUN 14.6 Creatinine 0.6 Est GFR (CKD-EPI)AfAm 115.63 Est GFR (CKD-EPI)NonAf 99.77 Random Glucose 91 Calcium 9.9 Total Bilirubin 0.6 AST 28 ALT 31 Alkaline Phosphatase 114 Total Protein 7.4 Albumin 3.9 Urine Color Urine Appearance Urine pH Ur Specific [place] Urine Protein Urine Glucose (UA) Urine Ketones Urine Blood Urine Nitrite Urine Bilirubin Urine Urobilinogen Ur Leukocyte Esterase Urine WBC (Auto) Urine RBC (Auto) Urine Casts (Auto) U Epithel Cells (Auto) Urine Bacteria (Auto) RPR Titer Nonreactive 08/03/18 23:09 WBC RBC Hgb Hct MCV MCH MCHC RDW Plt Count MPV Sodium Potassium Chloride Carbon Dioxide Anion Gap BUN Creatinine Est GFR (CKD-EPI)AfAm Est GFR (CKD-EPI)NonAf Random Glucose Calcium Total Bilirubin AST ALT Alkaline Phosphatase Total Protein Albumin Urine Color Yellow Urine Appearance Clear Urine pH 8.0 D Ur Specific [place] 1.014 Urine Protein Negative Urine Glucose (UA) Negative Urine Ketones Negative Urine Blood Negative Urine Nitrite Negative Urine Bilirubin Negative Urine Urobilinogen 1.0 Ur Leukocyte Esterase Trace Urine WBC (Auto) 4 Urine RBC (Auto) 1 Urine Casts (Auto) 0 U Epithel Cells (Auto) 11.3 Urine Bacteria (Auto) 225.7 RPR Titer u/a culture results pending labs noted aaox3 ambulating no acute distress Assessment: 08/04/18 14:00 withdrawal sx Plan: continue detox increase fluids
[2018-08-04] MEDS ORDERED: chlordiazePOXIDE HCL 10 MG CAPSULE PO PRN (17:00)
[2018-08-04] MEDS: chlordiazePOXIDE HCL 10 MG CAPSULE PO SCH ×2 (17:39→22:45)
[2018-08-04] MEDS: traZODone HCL 50 MG TABLET (FP) PO SCH (22:05)
[2018-08-04] MEDS: THIAMINE HCL 100 MG TABLET (FP) PO SCH (22:05)
[2018-08-04] MEDS: ALBUTEROL SO4 8 GM HFA INHALER IH PRN (22:05)
[2018-08-04] MEDS: MAGNESIUM HYDROX 2400MG/30ML ORAL SUSPENSION 30 ML CUP PO PRN (22:07)
[2018-08-05] MEDS ORDERED: METHADONE HCL 10 MG TABLET ONE (05:08)
[2018-08-05] MEDS ORDERED: METHADONE HCL 40 MG DISPERSABLE TABLET ONE (05:08)
[2018-08-05] MEDS: METHADONE 40 MG, METHADONE 30 MG PO SCH (05:35)
[2018-08-05] MEDS: chlordiazePOXIDE HCL 10 MG CAPSULE PO SCH ×3 (05:35→17:57)
[2018-08-05] MEDS ORDERED: METHADONE HCL 40 MG DISPERSABLE TABLET PO SCH (06:00)
[2018-08-05] MEDS: PRENATAL VITAMINS W/ FOLIC ACID TABLET (FP) PO SCH (10:39)
[2018-08-05] MEDS: NICOTINE 14 MG/24 HOURS TOPICAL PATCH TD SCH (10:41)
--- NOTE | 2018-08-05 11:27 | PN ---
[facility] CIWA - CIWA Score Nausea/Vomitin-No Nausea/No Vomiting Muscle Tremors: 3 Anxiety: 2 Agitation: 2 Paroxysmal Sweats: 1-Minimal Palms Moist Orientation: 0-Oriented Tacttile Disturbances: 0-None Auditory Disturbances: 0-None Visual Disturbances: 0-None Headache: 0-None Present CIWA-Ar Total Score: 8 BHS Progress Note (SOAP) Subjective: constipation sweats i need my lexapro Objective: 08/05/18 11:24 Vital Signs Temperature 97.9 F 08/05/18 09:50 Pulse Rate 76 08/05/18 09:50 Respiratory Rate 16 08/05/18 09:50 Blood Pressure 98/64 08/05/18 09:50 O2 Sat by Pulse Oximetry (%) Laboratory Tests 08/02/18 08/03/18 08/03/18 12:06 08:00 08:00 WBC 3.8 L RBC 4.12 Hgb 12.1 Hct 36.6 MCV 88.7 MCH 29.4 MCHC 33.1 RDW 15.1 Plt Count 250 D MPV 8.3 Sodium 136 Potassium 4.5 Chloride 100 Carbon Dioxide 29 Anion Gap 7 L BUN 14.6 Creatinine 0.6 Est GFR (CKD-EPI)AfAm 115.63 Est GFR (CKD-EPI)NonAf 99.77 Random Glucose 91 Calcium 9.9 Total Bilirubin 0.6 AST 28 ALT 31 Alkaline Phosphatase 114 Total Protein 7.4 Albumin 3.9 Urine Color Urine Appearance Urine pH Ur Specific [place] Urine Protein Urine Glucose (UA) Urine Ketones Urine Blood Urine Nitrite Urine Bilirubin Urine Urobilinogen Ur Leukocyte Esterase Urine WBC (Auto) Urine RBC (Auto) Urine Casts (Auto) U Epithel Cells (Auto) Urine Bacteria (Auto) POC Urine HCG, Qual Negative RPR Titer 08/03/18 08/03/18 08:00 23:09 WBC RBC Hgb Hct MCV MCH MCHC RDW Plt Count MPV Sodium Potassium Chloride Carbon Dioxide Anion Gap BUN Creatinine Est GFR (CKD-EPI)AfAm Est GFR (CKD-EPI)NonAf Random Glucose Calcium Total Bilirubin AST ALT Alkaline Phosphatase Total Protein Albumin Urine Color Yellow Urine Appearance Clear Urine pH 8.0 D Ur Specific [place] 1.014 Urine Protein Negative Urine Glucose (UA) Negative Urine Ketones Negative Urine Blood Negative Urine Nitrite Negative Urine Bilirubin Negative Urine Urobilinogen 1.0 Ur Leukocyte Esterase Trace Urine WBC (Auto) 4 Urine RBC (Auto) 1 Urine Casts (Auto) 0 U Epithel Cells (Auto) 11.3 Urine Bacteria (Auto) 225.7 POC Urine HCG, Qual RPR Titer Nonreactive aaox3 ambulating no acute distress pt denies any c/o of uti Assessment: 08/05/18 11:26 mild withdrawal sx Plan: continue detox increase fluids psych ordered for lexapro
--- NOTE | 2018-08-05 14:42 | PN ---
[facility] Progress Note Note: Patient requesting to have Lexapro ordered. She was seen by Dr Ayoub on and according to notes, she is on Lexapro 20 mg/day and Trazadone 50 mg/hs. Only trazadone was ordered. Will resume Lexapro 20mg/day
[2018-08-05] MEDS: ESCITALOPRAM OXALATE 20 MG TABLET (FP) PO SCH (16:01)
[2018-08-05 21:00] VITALS: PULSE 76
[2018-08-05] MEDS: traZODone HCL 50 MG TABLET (FP) PO SCH (22:35)
[2018-08-05] MEDS: MELATONIN 5 MG TABLETS PO PRN (22:35)
[2018-08-05] MEDS: THIAMINE HCL 100 MG TABLET (FP) PO SCH (22:35)
[2018-08-06] MEDS ORDERED: METHADONE HCL 10 MG TABLET ONE (04:42)
[2018-08-06] MEDS ORDERED: METHADONE HCL 40 MG DISPERSABLE TABLET ONE (04:43)
[2018-08-06] MEDS: METHADONE 40 MG, METHADONE 30 MG PO SCH (05:49)
[2018-08-06] MEDS: chlordiazePOXIDE HCL 10 MG CAPSULE PO SCH (07:33)
[2018-08-06 07:35] VITALS: BP 85/60; TEMP 97.7
--- NOTE | 2018-08-06 09:25 | DS ---
[facility] Detox Discharge Summary Admission Date: 08/02/18 Discharge Date: 08/06/18 - History Present History: Alcohol Dependence, MMTP - Physical Exam Results Vital Signs: Vital Signs Temperature 97.7 F 08/06/18 07:34 Pulse Rate 76 08/06/18 07:34 Respiratory Rate 16 08/06/18 07:34 Blood Pressure 85/60 L 08/06/18 07:34 O2 Sat by Pulse Oximetry (%) - Treatment Hospital Course: Detox Protocol Followed, Detoxed Safely, Responded well, Discharged Condition Good, Rehab Referral Accepted - Medication Discharge Medications: Ambulatory Orders Escitalopram Oxalate [Lexapro -] 20 mg PO DAILY #30 tablet 08/22/17 traZODone HCL [Trazodone HCl] 50 mg PO HS 09/20/17 Albuterol Sulfate Inhaler - [Ventolin HFA Inhaler -] 2 inh PO Q4H PRN #1 inhaler 02/24/18 Methadone [Dolophine -] 70 mg PO DAILY 06/30/18 - Diagnosis (1) Alcohol dependence with uncomplicated withdrawal Current Visit: Yes Status: Chronic (2) HIV (human immunodeficiency virus infection) Current Visit: Yes Status: Chronic Qualifiers: HIV symptom status: unspecified Qualified Code(s): B20 - Human immunodeficiency virus [HIV] disease (3) Methadone maintenance therapy patient Current Visit: Yes Status: Chronic (4) Nicotine dependence Current Visit: Yes Status: Chronic Qualifiers: Nicotine product type: cigarettes Substance use status: uncomplicated Qualified Code(s): F17.210 - Nicotine dependence, cigarettes, uncomplicated (5) Alcohol-induced mood disorder Current Visit: No Status: Acute (6) Alcohol-induced sleep disorder Current Visit: No Status: Acute (7) Anemia Current Visit: No Status: Chronic (8) Asthma Current Visit: Yes Status: Chronic Qualifiers: Asthma severity: mild Asthma persistence: intermittent Asthma complication type: uncomplicated Qualified Code(s): J45.20 - Mild intermittent asthma, uncomplicated (9) Bipolar disorder Current Visit: No Status: Chronic (10) Cocaine dependence Current Visit: Yes Status: Chronic Qualifiers: Substance use status: uncomplicated Qualified Code(s): F14.20 - Cocaine dependence, uncomplicated (11) Insomnia Current Visit: Yes Status: Chronic Qualifiers: Insomnia type: unspecified Qualified Code(s): G47.00 - Insomnia, unspecified (12) Insomnia secondary to depression with anxiety Current Visit: No Status: Chronic (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
[2018-08-06] MEDS: ESCITALOPRAM OXALATE 20 MG TABLET (FP) PO SCH (10:34)
[2018-08-06] MEDS: PRENATAL VITAMINS W/ FOLIC ACID TABLET (FP) PO SCH (10:34)
[2018-08-06] MEDS: NICOTINE 14 MG/24 HOURS TOPICAL PATCH TD SCH (10:34)
== END 2018-08-06 11:45 | disposition other institution (70) | DRG 773 ==
LOC: YASAS 09:34 → Y6N 12:56
PROVIDERS: ADMIT Surgery; ATTEND Surgery
PROC: HZ2ZZZZ Detoxification Services for Substance Abuse Treatment (ICD-10-PCS; principal; 2018-08-02)
DX: F10.230 Alcohol dependence with withdrawal, uncomplicated (principal); F10.24 Alcohol dependence with alcohol-induced mood disorder; F10.282 Alcohol dependence with alcohol-induced sleep disorder; F11.20 Opioid dependence, uncomplicated; F14.20 Cocaine dependence, uncomplicated; F17.210 Nicotine dependence, cigarettes, uncomplicated; F32.9 Major depressive disorder, single episode, unspecified; F51.05 Insomnia due to other mental disorder; F39 Unspecified mood [affective] disorder; F19.24 Other psychoactive substance dependence with psychoactive substance-induced mood disorder; Z21 Asymptomatic human immunodeficiency virus [HIV] infection status; D64.9 Anemia, unspecified; J45.20 Mild intermittent asthma, uncomplicated; G47.00 Insomnia, unspecified; K70.9 Alcoholic liver disease, unspecified; R39.15 Urgency of urination; R35.0 Frequency of micturition; R63.4 Abnormal weight loss; I49.9 Cardiac arrhythmia, unspecified; Z91.5 Personal history of self-harm
CPT/HCPCS: 36415; 80053; 81003; 81025; 85027; 86593; 87086; J0735

== ENCOUNTER 2018-08-06 11:32 | Inpatient (IN) | payer OTHER ==
[2018-08-06] MEDS ORDERED: LOPERAMIDE HCL 2 MG CAPSULE PO PRN (14:14)
[2018-08-06] MEDS ORDERED: MAGNESIUM HYDROX 2400MG/30ML ORAL SUSPENSION 30 ML CUP PO PRN (14:14)
[2018-08-06] MEDS ORDERED: guaiFENesin 200 MG/10 ML 10 ML UNIT-DOSE CUPS PO PRN (14:14)
[2018-08-06] MEDS ORDERED: NICOTINE POLACRILEX 4 MG GUM BUC PRN (14:14)
[2018-08-06] MEDS ORDERED: ACETAMINOPHEN 325 MG TABLET (FP) PO PRN (14:14)
[2018-08-06] MEDS ORDERED: hydrOXYzine PAMOATE 50 MG CAPSULE (FP) PO PRN (14:14)
[2018-08-06] MEDS ORDERED: MENTHOL/PHENOL 1 EACH UD MM PRN (14:14)
[2018-08-06] MEDS ORDERED: MAGNESIUM CITRATE 300 ML BOTTLE PO PRN (14:14)
[2018-08-06] MEDS ORDERED: MAG HYDROX/AL HYDROX/SIMETH 30 ML UNIT-DOSE CUP PO PRN (14:14)
[2018-08-06] MEDS ORDERED: P-EPHED 60MG/TRIPROLIDI 2.5MG TABLET PO PRN (14:14)
--- NOTE | 2018-08-06 14:14 | HP ---
[facility] Rehab Assess/Revision - Admission History Admitted to Rehab from: [address] - Vital signs Vital Signs: Vital Signs Period Temp Pulse Resp BP Sys/Castaneda Pulse Ox Last 24 Hr 97.9 F 61 18 101/68 - Findings Detox History & Physical reviewed: Yes Concur with findings: Yes Inpatient Rehab Admission - Rehab Decision to Admit Inpatient rehab admission?: Yes - Initial Determination Are CD services needed?: Yes Free of communicable disease: Yes Not in need of hospitalization: Yes - Rehab Admission Criteria Previous failed treatment: Yes Poor recovery environment: Yes Comorbidities: Yes Lacks judgement: Yes Patient is meeting Inpatient Rehab admission criteria:: Yes
[2018-08-06] MEDS ORDERED: ALBUTEROL SO4 8 GM HFA INHALER IH PRN (14:15)
[2018-08-06] MEDS: traZODone HCL 50 MG TABLET (FP) PO SCH (21:42)
[2018-08-06] MEDS: THIAMINE HCL 100 MG TABLET (FP) PO SCH (21:42)
[2018-08-06] MEDS ORDERED: MELATONIN 5 MG TABLETS PO PRN (22:00)
[2018-08-07] MEDS ORDERED: METHADONE HCL 10 MG TABLET PO SCH (06:00)
[2018-08-07] MEDS ORDERED: METHADONE HCL 10 MG TABLET ONE (06:24)
[2018-08-07] MEDS ORDERED: METHADONE HCL 40 MG DISPERSABLE TABLET ONE (06:24)
[2018-08-07] MEDS: METHADONE 40 MG, METHADONE 30 MG PO SCH (06:25)
[2018-08-07] MEDS ORDERED: ESCITALOPRAM OXALATE 10 MG TABLET (FP) ONE (08:50)
[2018-08-07] MEDS: NICOTINE 21 MG/24 HOURS TOPICAL PATCH TD SCH (10:09)
[2018-08-07] MEDS: PRENATAL VITAMINS W/ FOLIC ACID TABLET (FP) PO SCH (10:09)
[2018-08-07] MEDS: ESCITALOPRAM OXALATE 20 MG TABLET (FP) PO SCH (10:09)
[2018-08-07] MEDS: THIAMINE HCL 100 MG TABLET (FP) PO SCH (21:53)
[2018-08-07] MEDS: traZODone HCL 50 MG TABLET (FP) PO SCH (21:54)
[2018-08-08] MEDS ORDERED: METHADONE HCL 40 MG DISPERSABLE TABLET ONE (06:28)
[2018-08-08] MEDS ORDERED: METHADONE HCL 10 MG TABLET ONE (06:28)
[2018-08-08] MEDS: METHADONE 40 MG, METHADONE 30 MG PO SCH (06:59)
[2018-08-08] MEDS ORDERED: ESCITALOPRAM OXALATE 10 MG TABLET (FP) ONE (09:01)
[2018-08-08] MEDS: PRENATAL VITAMINS W/ FOLIC ACID TABLET (FP) PO SCH (10:01)
[2018-08-08] MEDS: ESCITALOPRAM OXALATE 20 MG TABLET (FP) PO SCH (10:01)
[2018-08-08] MEDS: NICOTINE 21 MG/24 HOURS TOPICAL PATCH TD SCH (10:02)
[2018-08-08] MEDS: IBUPROFEN 400 MG TABLET (FP) PO PRN (10:02)
[2018-08-08] MEDS ORDERED: COLLOIDAL OATMEAL 1 BAR EACH TP PRN (10:55)
[2018-08-08] MEDS: THIAMINE HCL 100 MG TABLET (FP) PO SCH (21:19)
[2018-08-08] MEDS: traZODone HCL 50 MG TABLET (FP) PO SCH (21:19)
[2018-08-09] MEDS: METHADONE 40 MG, METHADONE 30 MG PO SCH (06:05)
[2018-08-09] MEDS ORDERED: METHADONE HCL 10 MG TABLET ONE (06:05)
[2018-08-09] MEDS ORDERED: METHADONE HCL 40 MG DISPERSABLE TABLET ONE (06:05)
[2018-08-09] MEDS: PRENATAL VITAMINS W/ FOLIC ACID TABLET (FP) PO SCH (09:23)
[2018-08-09] MEDS: ESCITALOPRAM OXALATE 20 MG TABLET (FP) PO SCH (09:23)
[2018-08-09] MEDS: NICOTINE 21 MG/24 HOURS TOPICAL PATCH TD SCH (09:23)
[2018-08-09] MEDS: traZODone HCL 50 MG TABLET (FP) PO SCH (21:35)
[2018-08-09] MEDS: THIAMINE HCL 100 MG TABLET (FP) PO SCH (21:35)
[2018-08-10] MEDS ORDERED: METHADONE HCL 10 MG TABLET ONE (05:56)
[2018-08-10] MEDS ORDERED: METHADONE HCL 40 MG DISPERSABLE TABLET ONE (05:57)
[2018-08-10] MEDS: METHADONE 40 MG, METHADONE 30 MG PO SCH (06:06)
[2018-08-10 07:19] VITALS: PULSE 71
[2018-08-10] MEDS: ESCITALOPRAM OXALATE 20 MG TABLET (FP) PO SCH (09:59)
[2018-08-10] MEDS: PRENATAL VITAMINS W/ FOLIC ACID TABLET (FP) PO SCH (09:59)
[2018-08-10] MEDS: NICOTINE 21 MG/24 HOURS TOPICAL PATCH TD SCH (09:59)
[2018-08-10] MEDS: IBUPROFEN 400 MG TABLET (FP) PO PRN (11:55)
[2018-08-10] MEDS: traZODone HCL 50 MG TABLET (FP) PO SCH (21:34)
[2018-08-10] MEDS: THIAMINE HCL 100 MG TABLET (FP) PO SCH (21:34)
[2018-08-11] MEDS ORDERED: METHADONE HCL 10 MG TABLET ONE (05:51)
[2018-08-11] MEDS ORDERED: METHADONE HCL 40 MG DISPERSABLE TABLET ONE (05:51)
[2018-08-11] MEDS: METHADONE 40 MG, METHADONE 30 MG PO SCH (06:17)
[2018-08-11] MEDS: ESCITALOPRAM OXALATE 20 MG TABLET (FP) PO SCH (10:10)
[2018-08-11] MEDS: PRENATAL VITAMINS W/ FOLIC ACID TABLET (FP) PO SCH (10:10)
[2018-08-11] MEDS: NICOTINE 21 MG/24 HOURS TOPICAL PATCH TD SCH (10:10)
[2018-08-11] MEDS ORDERED: COLLOIDAL OATMEAL 1 BAR EACH TP PRN (11:59)
[2018-08-11] MEDS: THIAMINE HCL 100 MG TABLET (FP) PO SCH (21:23)
[2018-08-11] MEDS: traZODone HCL 50 MG TABLET (FP) PO SCH (21:23)
[2018-08-12] MEDS ORDERED: METHADONE HCL 10 MG TABLET ONE (06:24)
[2018-08-12] MEDS ORDERED: METHADONE HCL 40 MG DISPERSABLE TABLET ONE (06:24)
[2018-08-12] MEDS: METHADONE 40 MG, METHADONE 30 MG PO SCH (06:25)
[2018-08-12] MEDS ORDERED: METHADONE 40 MG, METHADONE 30 MG PO SCH (06:52)
[2018-08-12] MEDS: PRENATAL VITAMINS W/ FOLIC ACID TABLET (FP) PO SCH (10:10)
[2018-08-12] MEDS: NICOTINE 21 MG/24 HOURS TOPICAL PATCH TD SCH (10:10)
[2018-08-12] MEDS: ESCITALOPRAM OXALATE 20 MG TABLET (FP) PO SCH (10:11)
--- NOTE | 2018-08-12 15:58 | PN ---
[facility] Progress Note (SOAP) Subjective: Patient to be discharged tomorrow. Objective: A+O X3, no neurological deficits noted. Heart sounds regular, lungs clear, abd soft, non-tender, non-distended, +BS. 08/12/18 15:56 Vital Signs (72 hours) 08/10/18 08/10/18 08/10/18 00:30 03:30 07:19 Temperature 98 F Pulse Rate 71 Respiratory 18 18 16 Rate Blood Pressure 122/72 08/11/18 08/11/18 08/11/18 00:30 03:30 07:20 Temperature 97.7 F Pulse Rate 71 Respiratory 18 18 18 Rate Blood Pressure 105/74 08/12/18 08/12/18 08/12/18 00:30 03:30 07:20 Temperature 98.0 F Pulse Rate 71 Respiratory 18 18 18 Rate Blood Pressure 105/79 Assessment: Medically stable for discharge Discharge Dx: HIV infection Cocaine Dependence MMTP 08/12/18 15:58 Plan: Discharge Plan: Patient will [facility]. She will also attend NA meetings and get a sponsor. She receives medical care from [facility] in [facility]. Patient does not need any prescriptions transmitted to the pharmacy.
[2018-08-12] MEDS: traZODone HCL 50 MG TABLET (FP) PO SCH (21:27)
[2018-08-12] MEDS: THIAMINE HCL 100 MG TABLET (FP) PO SCH (21:27)
[2018-08-13] MEDS ORDERED: METHADONE HCL 10 MG TABLET ONE (05:59)
[2018-08-13] MEDS ORDERED: METHADONE HCL 40 MG DISPERSABLE TABLET ONE (05:59)
[2018-08-13] MEDS ORDERED: METHADONE 40 MG, METHADONE 30 MG PO SCH (06:00)
[2018-08-13 07:16] VITALS: BP 121/82; TEMP 98.1
--- NOTE | 2018-08-13 08:38 | PN ---
[facility] Progress Note Note: Patient is scheduled for discharge today. Scripts for 30 days supply of medications(Lexapro 20 mg/day, Trazadone 50 mg/hs) are electronically transmitted to [facility] at [address] [place] [id number]
[2018-08-13] MEDS: PRENATAL VITAMINS W/ FOLIC ACID TABLET (FP) PO SCH (09:18)
[2018-08-13] MEDS: NICOTINE 21 MG/24 HOURS TOPICAL PATCH TD SCH (09:18)
[2018-08-13] MEDS: ESCITALOPRAM OXALATE 20 MG TABLET (FP) PO SCH (09:18)
== END 2018-08-13 09:35 | disposition home or self-care (01) | DRG 772 ==
LOC: YASAS 11:32 → Y3E 11:33
PROVIDERS: ADMIT Neuromusculoskeletal Medicine & OMM; ATTEND Neuromusculoskeletal Medicine & OMM
PROC: HZ42ZZZ Group Counseling for Substance Abuse Treatment, Cognitive-Behavioral (ICD-10-PCS; principal; 2018-08-06)
DX: F14.20 Cocaine dependence, uncomplicated (principal); F11.20 Opioid dependence, uncomplicated; Z21 Asymptomatic human immunodeficiency virus [HIV] infection status

== ENCOUNTER 2018-10-01 12:57 | Inpatient (IN) | payer OTHER ==
[2018-10-01 14:31] VITALS: BMI 21.2
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
[2018-10-01] MEDS ORDERED: METHOCARBAMOL 500 MG TABLET PO PRN (16:29)
[2018-10-01] MEDS ORDERED: IBUPROFEN 400 MG TABLET (FP) PO PRN (16:29)
[2018-10-01] MEDS ORDERED: MAGNESIUM CITRATE 300 ML BOTTLE PO PRN (16:29)
[2018-10-01] MEDS ORDERED: NICOTINE POLACRILEX 2 MG GUM BUC PRN (16:29)
[2018-10-01] MEDS ORDERED: hydrOXYzine PAMOATE 25 MG CAPSULE (FP) PO PRN (16:29)
[2018-10-01] MEDS ORDERED: MAG HYDROX/AL HYDROX/SIMETH 30 ML UNIT-DOSE CUP PO PRN (16:29)
[2018-10-01] MEDS ORDERED: BISMUTH SUBSALICYLATE 524 MG/30 ML UD PO PRN (16:29)
[2018-10-01] MEDS ORDERED: chlordiazePOXIDE HCL 25 MG CAPSULE PO PRN (16:29)
[2018-10-01] MEDS ORDERED: MENTHOL/PHENOL 1 EACH UD MM PRN (16:29)
[2018-10-01] MEDS ORDERED: ACETAMINOPHEN 325 MG TABLET (FP) PO PRN ×2 (16:29)
[2018-10-01] MEDS ORDERED: ALBUTEROL SO4 8 GM HFA INHALER IH PRN (16:31)
[2018-10-01] MEDS: chlordiazePOXIDE HCL 25 MG CAPSULE PO SCH ×2 (17:21→22:06)
[2018-10-01] MEDS: THIAMINE HCL 100 MG TABLET (FP) PO SCH (22:06)
[2018-10-01] MEDS: MELATONIN 5 MG TABLETS PO PRN (22:07)
[2018-10-02] MEDS: chlordiazePOXIDE HCL 25 MG CAPSULE PO SCH ×4 (05:35→22:22)
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
[2018-10-02] MEDS ORDERED: ESCITALOPRAM OXALATE 10 MG TABLET (FP) ONE (09:47)
[2018-10-02] MEDS ORDERED: METHADONE HCL 10 MG TABLET PO ONE (10:12)
[2018-10-02] MEDS ORDERED: METHADONE 40 MG, METHADONE 30 MG PO ONE (10:25)
[2018-10-02] MEDS: NICOTINE 14 MG/24 HOURS TOPICAL PATCH TD SCH (10:53)
[2018-10-02] MEDS: PRENATAL VITAMINS W/ FOLIC ACID TABLET (FP) PO SCH (10:53)
[2018-10-02] MEDS: ESCITALOPRAM OXALATE 20 MG TABLET (FP) PO SCH (10:54)
[2018-10-02] MEDS ORDERED: METHADONE HCL 10 MG TABLET ONE (10:55)
[2018-10-02] MEDS ORDERED: METHADONE HCL 40 MG DISPERSABLE TABLET ONE (10:56)
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
[2018-10-02 12:24] LABS: ALBUMIN 3.5 g/dl (3.4-5.0); BILIRUBIN,TOTAL 0.4 mg/dL (0.2-1); BLOOD UREA NITROGEN 14.7 mg/dL (7-18); CALCIUM 9.7 mg/dL (8.5-10.1); CREATININE 0.7 mg/dL (0.55-1.3); POTASSIUM 4.4 mmol/L (3.5-5.1); TOT PROT 7.1 g/dl (6.4-8.2)
[2018-10-02 13:17] LABS: URINE APPEARANCE CLEAR; URINE BILIRUBIN NEGATIVE (NEGATIVE); URINE COLOR YELLOW; URINE GLUCOSE (UA) NEGATIVE (NEGATIVE); URINE KETONE NEGATIVE (NEGATIVE); URINE LEUK ESTERASE NEGATIVE (NEGATIVE); URINE NITRITE NEGATIVE (NEGATIVE); URINE PROTEIN NEGATIVE (NEGATIVE); URINE UROBILINOGEN 0.2 mg/dL (0.2-1.0)
[2018-10-02 13:19] LABS: HEMATOCRIT 36.7 % (32.4-45.2); HEMOGLOBIN 12.1 GM/dL (10.7-15.3); MCH 28.9 pg (25.7-33.7); MCHC 32.8 g/dl (32.0-36.0); MEAN CELL VOLUME 88.1 fl (80-96); MEAN PLT VOLUME 8.4 fl (7.5-11.1); PLATELET COUNT 279 K/MM3 (134-434); RBC 4.17 M/mm3 (3.60-5.2); RDW 15.9 % (11.6-15.6); WHITE BLOOD COUNT 4.2 K/mm3 (4.0-10.0)
[2018-10-02] MEDS: MAGNESIUM HYDROX 2400MG/30ML ORAL SUSPENSION 30 ML CUP PO PRN (17:14)
[2018-10-02] MEDS ORDERED: P-EPHED 60MG/TRIPROLIDI 2.5MG TABLET PO PRN (17:32)
[2018-10-02] MEDS: THIAMINE HCL 100 MG TABLET (FP) PO SCH (22:22)
[2018-10-02] MEDS: traZODone HCL 50 MG TABLET (FP) PO SCH (22:23)
[2018-10-03] MEDS ORDERED: METHADONE HCL 10 MG TABLET ONE (04:42)
[2018-10-03] MEDS ORDERED: METHADONE HCL 40 MG DISPERSABLE TABLET ONE (04:43)
[2018-10-03] MEDS: chlordiazePOXIDE HCL 25 MG CAPSULE PO SCH ×4 (05:52→23:07)
[2018-10-03] MEDS: METHADONE 40 MG, METHADONE 30 MG PO SCH (05:52)
[2018-10-03] MEDS ORDERED: METHADONE HCL 10 MG TABLET PO SCH (06:00)
[2018-10-03] MEDS: NICOTINE 14 MG/24 HOURS TOPICAL PATCH TD SCH (10:30)
[2018-10-03] MEDS: PRENATAL VITAMINS W/ FOLIC ACID TABLET (FP) PO SCH (10:30)
[2018-10-03] MEDS: ESCITALOPRAM OXALATE 20 MG TABLET (FP) PO SCH (10:30)
--- NOTE | 2018-10-03 17:19 | PN ---
S CIWA - CIWA Score Nausea/Vomitin-No Nausea/No Vomiting Muscle Tremors: 3 Anxiety: 3 Agitation: 2 Paroxysmal Sweats: 1-Minimal Palms Moist Orientation: 0-Oriented Tacttile Disturbances: 0-None Auditory Disturbances: 1-Very Mild Visual Disturbances: 0-None Headache: 2-Mild CIWA-Ar Total Score: 12 BHS Progress Note (SOAP) Subjective: Anxious, Tremors, Sweating, H/A. Objective: PATIENT PATIENT A & O X 3, OBSERVED AMBULATING ON UNIT UNASSISTED. IN NO ACUTE DISTRESS. 10/03/18 17:19 Vital Signs Temperature 98.1 F 10/03/18 13:22 Pulse Rate 60 10/03/18 13:22 Respiratory Rate 16 10/03/18 13:22 Blood Pressure 112/76 10/03/18 13:22 O2 Sat by Pulse Oximetry (%) Laboratory Tests 10/02/18 10/02/18 10/02/18 07:30 07:30 07:30 WBC 4.2 RBC 4.17 Hgb 12.1 Hct 36.7 MCV 88.1 MCH 28.9 MCHC 32.8 RDW 15.9 H Plt Count 279 MPV 8.4 Sodium 142 Potassium 4.4 Chloride 102 Carbon Dioxide 34 H Anion Gap 6 L BUN 14.7 Creatinine 0.7 Est GFR (CKD-EPI)AfAm 109.91 Est GFR (CKD-EPI)NonAf 94.84 Random Glucose 66 L Calcium 9.7 Total Bilirubin 0.4 AST 23 ALT 21 Alkaline Phosphatase 110 Total Protein 7.1 Albumin 3.5 Urine Color Urine Appearance Urine pH Ur Specific [place] Urine Protein Urine Glucose (UA) Urine Ketones Urine Blood Urine Nitrite Urine Bilirubin Urine Urobilinogen Ur Leukocyte Esterase RPR Titer Nonreactive 10/02/18 09:00 WBC RBC Hgb Hct MCV MCH MCHC RDW Plt Count MPV Sodium Potassium Chloride Carbon Dioxide Anion Gap BUN Creatinine Est GFR (CKD-EPI)AfAm Est GFR (CKD-EPI)NonAf Random Glucose Calcium Total Bilirubin AST ALT Alkaline Phosphatase Total Protein Albumin Urine Color Yellow Urine Appearance Clear Urine pH 7.0 Ur Specific [place] 1.020 Urine Protein Negative Urine Glucose (UA) Negative Urine Ketones Negative Urine Blood Negative Urine Nitrite Negative Urine Bilirubin Negative Urine Urobilinogen 0.2 Ur Leukocyte Esterase Negative RPR Titer LABS NOTED. Assessment: 10/03/18 17:19 WITHDRAWAL SYMPTOMS. Plan: CONTINUE DETOX.
[2018-10-03] MEDS: MELATONIN 5 MG TABLETS PO PRN (23:07)
[2018-10-03] MEDS: THIAMINE HCL 100 MG TABLET (FP) PO SCH (23:07)
[2018-10-03] MEDS: traZODone HCL 50 MG TABLET (FP) PO SCH (23:07)
[2018-10-03] MEDS: MAGNESIUM HYDROX 2400MG/30ML ORAL SUSPENSION 30 ML CUP PO PRN (23:12)
[2018-10-04] MEDS ORDERED: chlordiazePOXIDE HCL 10 MG CAPSULE PO PRN
[2018-10-04] MEDS ORDERED: METHADONE HCL 10 MG TABLET ONE (05:04)
[2018-10-04] MEDS ORDERED: METHADONE HCL 40 MG DISPERSABLE TABLET ONE (05:04)
[2018-10-04] MEDS: chlordiazePOXIDE HCL 10 MG CAPSULE PO SCH ×4 (05:36→22:33)
[2018-10-04] MEDS: METHADONE 40 MG, METHADONE 30 MG PO SCH (05:36)
[2018-10-04] MEDS: ESCITALOPRAM OXALATE 20 MG TABLET (FP) PO SCH (10:20)
[2018-10-04] MEDS: PRENATAL VITAMINS W/ FOLIC ACID TABLET (FP) PO SCH (10:20)
[2018-10-04] MEDS: NICOTINE 14 MG/24 HOURS TOPICAL PATCH TD SCH (10:21)
--- NOTE | 2018-10-04 16:19 | PN ---
[facility] CIWA - CIWA Score Nausea/Vomitin-No Nausea/No Vomiting Muscle Tremors: 2 Anxiety: 4-Mod. Anxious/Guarded Agitation: 1-Slight > Activity Paroxysmal Sweats: 2 Orientation: 0-Oriented Tacttile Disturbances: 1-Very Mild Itch/Numbness Auditory Disturbances: 0-None Visual Disturbances: 1-Very Mild Sensitivity Headache: 0-None Present CIWA-Ar Total Score: 11 BHS Progress Note (SOAP) Subjective: Anxious, Tremors, Sweating, Constipation. Objective: PATIENT A & O X 3, OBSERVED AMBULATING ON UNIT UNASSISTED. IN NO ACUTE DISTRESS. 10/04/18 16:20 Vital Signs Temperature 97.8 F 10/04/18 13:30 Pulse Rate 68 10/04/18 13:30 Respiratory Rate 16 10/04/18 13:30 Blood Pressure 119/76 10/04/18 13:30 O2 Sat by Pulse Oximetry (%) Laboratory Tests 10/02/18 10/02/18 10/02/18 07:30 07:30 07:30 WBC 4.2 RBC 4.17 Hgb 12.1 Hct 36.7 MCV 88.1 MCH 28.9 MCHC 32.8 RDW 15.9 H Plt Count 279 MPV 8.4 Sodium 142 Potassium 4.4 Chloride 102 Carbon Dioxide 34 H Anion Gap 6 L BUN 14.7 Creatinine 0.7 Est GFR (CKD-EPI)AfAm 109.91 Est GFR (CKD-EPI)NonAf 94.84 Random Glucose 66 L Calcium 9.7 Total Bilirubin 0.4 AST 23 ALT 21 Alkaline Phosphatase 110 Total Protein 7.1 Albumin 3.5 Urine Color Urine Appearance Urine pH Ur Specific [place] Urine Protein Urine Glucose (UA) Urine Ketones Urine Blood Urine Nitrite Urine Bilirubin Urine Urobilinogen Ur Leukocyte Esterase RPR Titer Nonreactive 10/02/18 09:00 WBC RBC Hgb Hct MCV MCH MCHC RDW Plt Count MPV Sodium Potassium Chloride Carbon Dioxide Anion Gap BUN Creatinine Est GFR (CKD-EPI)AfAm Est GFR (CKD-EPI)NonAf Random Glucose Calcium Total Bilirubin AST ALT Alkaline Phosphatase Total Protein Albumin Urine Color Yellow Urine Appearance Clear Urine pH 7.0 Ur Specific [place] 1.020 Urine Protein Negative Urine Glucose (UA) Negative Urine Ketones Negative Urine Blood Negative Urine Nitrite Negative Urine Bilirubin Negative Urine Urobilinogen 0.2 Ur Leukocyte Esterase Negative RPR Titer LABS NOTED. Assessment: 10/04/18 16:20 WITHDRAWAL SYMPTOMS. Plan: CONTINUE DETOX. INCREASE DAILY PO WATER INTAKE. PRN MOM FOR CONSTIPATION.
[2018-10-04] MEDS: traZODone HCL 50 MG TABLET (FP) PO SCH (22:33)
[2018-10-04] MEDS: THIAMINE HCL 100 MG TABLET (FP) PO SCH (22:33)
[2018-10-05] MEDS ORDERED: METHADONE HCL 10 MG TABLET ONE (04:56)
[2018-10-05] MEDS ORDERED: METHADONE HCL 40 MG DISPERSABLE TABLET ONE (04:56)
[2018-10-05] MEDS: chlordiazePOXIDE HCL 10 MG CAPSULE PO SCH ×2 (05:40→17:28)
[2018-10-05] MEDS: METHADONE 40 MG, METHADONE 30 MG PO SCH (05:40)
[2018-10-05] MEDS: NICOTINE 14 MG/24 HOURS TOPICAL PATCH TD SCH (10:41)
[2018-10-05] MEDS: ESCITALOPRAM OXALATE 20 MG TABLET (FP) PO SCH (10:41)
[2018-10-05] MEDS: PRENATAL VITAMINS W/ FOLIC ACID TABLET (FP) PO SCH (10:42)
--- NOTE | 2018-10-05 14:43 | PN ---
S CIWA - CIWA Score Nausea/Vomitin-No Nausea/No Vomiting Muscle Tremors: 2 Anxiety: 2 Agitation: 2 Paroxysmal Sweats: 1-Minimal Palms Moist Orientation: 0-Oriented Tacttile Disturbances: 0-None Auditory Disturbances: 0-None Visual Disturbances: 0-None Headache: 0-None Present CIWA-Ar Total Score: 7 S Progress Note (SOAP) Subjective: 58 years old female admitted on 10/01/18 for acute alcohol withdrawal sx management doing well with libirum detox regimen seen by psychiatrist castro lexapro and trazodone feeling better well rested patient prefers returning to [facility] where he attended currently Objective: 10/05/18 14:46 Vital Signs Temperature 98.1 F 10/05/18 13:24 Pulse Rate 72 10/05/18 13:24 Respiratory Rate 18 10/05/18 13:24 Blood Pressure 120/80 10/05/18 13:24 O2 Sat by Pulse Oximetry (%) Laboratory Last Values WBC 4.2 K/mm3 (4.0-10.0) 10/02/18 07:30 RBC 4.17 M/mm3 (3.60-5.2) 10/02/18 07:30 Hgb 12.1 GM/dL (10.7-15.3) 10/02/18 07:30 Hct 36.7 % (32.4-45.2) 10/02/18 07:30 MCV 88.1 fl (80-96) 10/02/18 07:30 MCH 28.9 pg (25.7-33.7) 10/02/18 07:30 MCHC 32.8 g/dl (32.0-36.0) 10/02/18 07:30 RDW 15.9 % (11.6-15.6) H 10/02/18 07:30 Plt Count 279 K/MM3 (134-434) 10/02/18 07:30 MPV 8.4 fl (7.5-11.1) 10/02/18 07:30 Sodium 142 mmol/L (136-145) 10/02/18 07:30 Potassium 4.4 mmol/L (3.5-5.1) 10/02/18 07:30 Chloride 102 mmol/L (98-107) 10/02/18 07:30 Carbon Dioxide 34 mmol/L (21-32) H 10/02/18 07:30 Anion Gap 6 MMOL/L (8-16) L 10/02/18 07:30 BUN 14.7 mg/dL (7-18) 10/02/18 07:30 Creatinine 0.7 mg/dL (0.55-1.3) 10/02/18 07:30 Est GFR (CKD-EPI)AfAm 109.91 10/02/18 07:30 Est GFR (CKD-EPI)NonAf 94.84 10/02/18 07:30 Random Glucose 66 mg/dL (74-106) L 10/02/18 07:30 Calcium 9.7 mg/dL (8.5-10.1) 10/02/18 07:30 Total Bilirubin 0.4 mg/dL (0.2-1) 10/02/18 07:30 AST 23 U/L (15-37) 10/02/18 07:30 ALT 21 U/L (13-61) 10/02/18 07:30 Alkaline Phosphatase 110 U/L (45-117) 10/02/18 07:30 Total Protein 7.1 g/dl (6.4-8.2) 10/02/18 07:30 Albumin 3.5 g/dl (3.4-5.0) 10/02/18 07:30 Urine Color Yellow 10/02/18 09:00 Urine Appearance Clear 10/02/18 09:00 Urine pH 7.0 (5.0-8.0) 10/02/18 09:00 Ur Specific [place] 1.020 (1.010-1.035) 10/02/18 09:00 Urine Protein Negative (NEGATIVE) 10/02/18 09:00 Urine Glucose (UA) Negative (NEGATIVE) 10/02/18 09:00 Urine Ketones Negative (NEGATIVE) 10/02/18 09:00 Urine Blood Negative (NEGATIVE) 10/02/18 09:00 Urine Nitrite Negative (NEGATIVE) 10/02/18 09:00 Urine Bilirubin Negative (NEGATIVE) 10/02/18 09:00 Urine Urobilinogen 0.2 mg/dL (0.2-1.0) 10/02/18 09:00 Ur Leukocyte Esterase Negative (NEGATIVE) 10/02/18 09:00 RPR Titer Nonreactive (NONREACTIVE) 10/02/18 07:30 lab noted Assessment: 10/05/18 14:46 alcohol withdrawal sx Plan: continue librium detox regimen
[2018-10-05] MEDS: THIAMINE HCL 100 MG TABLET (FP) PO SCH (22:38)
[2018-10-05] MEDS: traZODone HCL 50 MG TABLET (FP) PO SCH (22:38)
[2018-10-06] MEDS ORDERED: METHADONE HCL 10 MG TABLET ONE (04:50)
[2018-10-06] MEDS ORDERED: METHADONE HCL 40 MG DISPERSABLE TABLET ONE (04:50)
[2018-10-06] MEDS ORDERED: chlordiazePOXIDE HCL 10 MG CAPSULE PO ONE (05:00)
[2018-10-06] MEDS: METHADONE 40 MG, METHADONE 30 MG PO SCH (05:36)
[2018-10-06 06:34] VITALS: BP 116/78; PULSE 74; TEMP 97.5
--- NOTE | 2018-10-06 12:16 | DS ---
[facility] Detox Discharge Summary Admission Date: 10/01/18 Discharge Date: 10/06/18 - History Present History: Alcohol Dependence Additional Comments: 58 years old female admitted on 10/01/18 for acute alcohol withdrawal sx management doing well with libirum detox regimen no complication through out the detox stay alert oriented x 3 speech clearly no shortness of breath skin warm dry steady gait no nausea no vomiting - Physical Exam Results Vital Signs: Vital Signs Temperature 97.5 F L 10/06/18 06:34 Pulse Rate 74 10/06/18 06:34 Respiratory Rate 18 10/06/18 06:34 Blood Pressure 116/78 10/06/18 06:34 O2 Sat by Pulse Oximetry (%) Pertinent Admission Physical Exam Findings: alcohol withdrawal sx Laboratory Last Values WBC 4.2 K/mm3 (4.0-10.0) 10/02/18 07:30 RBC 4.17 M/mm3 (3.60-5.2) 10/02/18 07:30 Hgb 12.1 GM/dL (10.7-15.3) 10/02/18 07:30 Hct 36.7 % (32.4-45.2) 10/02/18 07:30 MCV 88.1 fl (80-96) 10/02/18 07:30 MCH 28.9 pg (25.7-33.7) 10/02/18 07:30 MCHC 32.8 g/dl (32.0-36.0) 10/02/18 07:30 RDW 15.9 % (11.6-15.6) H 10/02/18 07:30 Plt Count 279 K/MM3 (134-434) 10/02/18 07:30 MPV 8.4 fl (7.5-11.1) 10/02/18 07:30 Sodium 142 mmol/L (136-145) 10/02/18 07:30 Potassium 4.4 mmol/L (3.5-5.1) 10/02/18 07:30 Chloride 102 mmol/L (98-107) 10/02/18 07:30 Carbon Dioxide 34 mmol/L (21-32) H 10/02/18 07:30 Anion Gap 6 MMOL/L (8-16) L 10/02/18 07:30 BUN 14.7 mg/dL (7-18) 10/02/18 07:30 Creatinine 0.7 mg/dL (0.55-1.3) 10/02/18 07:30 Est GFR (CKD-EPI)AfAm 109.91 10/02/18 07:30 Est GFR (CKD-EPI)NonAf 94.84 10/02/18 07:30 Random Glucose 66 mg/dL (74-106) L 10/02/18 07:30 Calcium 9.7 mg/dL (8.5-10.1) 10/02/18 07:30 Total Bilirubin 0.4 mg/dL (0.2-1) 10/02/18 07:30 AST 23 U/L (15-37) 10/02/18 07:30 ALT 21 U/L (13-61) 10/02/18 07:30 Alkaline Phosphatase 110 U/L (45-117) 10/02/18 07:30 Total Protein 7.1 g/dl (6.4-8.2) 10/02/18 07:30 Albumin 3.5 g/dl (3.4-5.0) 10/02/18 07:30 Urine Color Yellow 10/02/18 09:00 Urine Appearance Clear 10/02/18 09:00 Urine pH 7.0 (5.0-8.0) 10/02/18 09:00 Ur Specific [place] 1.020 (1.010-1.035) 10/02/18 09:00 Urine Protein Negative (NEGATIVE) 10/02/18 09:00 Urine Glucose (UA) Negative (NEGATIVE) 10/02/18 09:00 Urine Ketones Negative (NEGATIVE) 10/02/18 09:00 Urine Blood Negative (NEGATIVE) 10/02/18 09:00 Urine Nitrite Negative (NEGATIVE) 10/02/18 09:00 Urine Bilirubin Negative (NEGATIVE) 10/02/18 09:00 Urine Urobilinogen 0.2 mg/dL (0.2-1.0) 10/02/18 09:00 Ur Leukocyte Esterase Negative (NEGATIVE) 10/02/18 09:00 RPR Titer Nonreactive (NONREACTIVE) 10/02/18 07:30 Vital Signs lab noted - Treatment Hospital Course: Detox Protocol Followed, Detoxed Safely, Responded well, Discharged Condition Good, Rehab Referral Accepted Patient has Accepted a Rehab Referral to: return to methadone program - Medication Discharge Medications: Ambulatory Orders traZODone HCL [Trazodone HCl] 50 mg PO HS 09/20/17 Methadone [Dolophine -] 70 mg PO DAILY 06/30/18 Escitalopram Oxalate [Lexapro -] 20 mg PO DAILY #30 tablet 08/13/18 Albuterol Sulfate Inhaler - [Ventolin HFA Inhaler -] 2 inh PO Q4H PRN #1 inhaler 10/05/18 - Diagnosis (1) Alcohol dependence with uncomplicated withdrawal Status: Acute (2) Asthma Status: Chronic Qualifiers: Asthma severity: mild Asthma persistence: intermittent Asthma complication type: uncomplicated Qualified Code(s): J45.20 - Mild intermittent asthma, uncomplicated (3) HIV (human immunodeficiency virus infection) Status: Chronic Qualifiers: HIV symptom status: asymptomatic Qualified Code(s): Z21 - Asymptomatic human immunodeficiency virus [HIV] infection status (4) Methadone maintenance therapy patient Status: Chronic (5) Nicotine dependence Status: Acute Qualifiers: Nicotine product type: cigarettes Substance use status: in withdrawal Qualified Code(s): F17.213 - Nicotine dependence, cigarettes, with withdrawal (6) Substance induced mood disorder Status: Suspected - AMA Did Patient Leave Against Medical Advice: No
== END 2018-10-06 09:00 | disposition home or self-care (01) | DRG 773 ==
LOC: YASAS 12:57 → Y3N 16:45
PROVIDERS: ADMIT Surgery; ATTEND Surgery
PROC: HZ2ZZZZ Detoxification Services for Substance Abuse Treatment (ICD-10-PCS; principal; 2018-10-01)
DX: F10.230 Alcohol dependence with withdrawal, uncomplicated (principal); F14.20 Cocaine dependence, uncomplicated; F11.20 Opioid dependence, uncomplicated; F17.213 Nicotine dependence, cigarettes, with withdrawal; F10.24 Alcohol dependence with alcohol-induced mood disorder; F10.282 Alcohol dependence with alcohol-induced sleep disorder; F19.24 Other psychoactive substance dependence with psychoactive substance-induced mood disorder; F31.9 Bipolar disorder, unspecified; Z21 Asymptomatic human immunodeficiency virus [HIV] infection status; D64.9 Anemia, unspecified; G47.00 Insomnia, unspecified; K59.00 Constipation, unspecified; J45.20 Mild intermittent asthma, uncomplicated; Z91.5 Personal history of self-harm
CPT/HCPCS: 36415; 80053; 81003; 85027; 86593

== ENCOUNTER 2018-11-03 13:30 | Inpatient (IN) | payer OTHER ==
[2018-11-03 15:23] VITALS: BMI 20.8
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
[2018-11-03] MEDS ORDERED: ACETAMINOPHEN 325 MG TABLET (FP) PO PRN ×2 (17:27)
[2018-11-03] MEDS ORDERED: MAGNESIUM CITRATE 300 ML BOTTLE PO PRN (17:27)
[2018-11-03] MEDS ORDERED: P-EPHED 60MG/TRIPROLIDI 2.5MG TABLET PO PRN (17:27)
[2018-11-03] MEDS ORDERED: MAG HYDROX/AL HYDROX/SIMETH 30 ML UNIT-DOSE CUP PO PRN (17:27)
[2018-11-03] MEDS ORDERED: MENTHOL/PHENOL 1 EACH UD MM PRN (17:27)
[2018-11-03] MEDS ORDERED: MELATONIN 5 MG TABLETS PO PRN (17:27)
[2018-11-03] MEDS ORDERED: METHOCARBAMOL 500 MG TABLET PO PRN (17:27)
[2018-11-03] MEDS ORDERED: NICOTINE POLACRILEX 2 MG GUM BUC PRN (17:27)
[2018-11-03] MEDS ORDERED: IBUPROFEN 400 MG TABLET (FP) PO PRN (17:27)
[2018-11-03] MEDS ORDERED: BISMUTH SUBSALICYLATE 524 MG/30 ML UD PO PRN (17:27)
[2018-11-03] MEDS ORDERED: ALBUTEROL SO4 8 GM HFA INHALER IH PRN (17:30)
[2018-11-03] MEDS: chlordiazePOXIDE HCL 25 MG CAPSULE PO PRN (18:54)
[2018-11-03] MEDS: THIAMINE HCL 100 MG TABLET (FP) PO SCH (22:17)
[2018-11-03] MEDS: chlordiazePOXIDE HCL 25 MG CAPSULE PO SCH (22:17)
[2018-11-03] MEDS: traZODone HCL 50 MG TABLET (FP) PO SCH (22:17)
[2018-11-04] MEDS: chlordiazePOXIDE HCL 25 MG CAPSULE PO SCH ×4 (05:42→22:09)
--- NOTE | 2018-11-04 09:57 | PN ---
S CIWA - CIWA Score Nausea/Vomitin-Mild Nausea/No Vomiting Muscle Tremors: 3 Anxiety: 4-Mod. Anxious/Guarded Agitation: 2 Paroxysmal Sweats: 2 Orientation: 0-Oriented Tacttile Disturbances: 1-Very Mild Itch/Numbness Auditory Disturbances: 0-None Visual Disturbances: 0-None Headache: 0-None Present CIWA-Ar Total Score: 13 BHS Progress Note (SOAP) Subjective: resting on bed limited conversation with staff methadone 60 mg po waiting to be verified emotional assurance that methadone will be dispensed once verification completed Objective: 11/04/18 09:56 Vital Signs Temperature 97.7 F 11/04/18 09:23 Pulse Rate 86 11/04/18 09:23 Respiratory Rate 18 11/04/18 09:23 Blood Pressure 131/96 11/04/18 09:23 O2 Sat by Pulse Oximetry (%) 11/04/18 09:57 lab pending Assessment: 11/04/18 09:57 alcohol withdrawal sx Plan: continue librium detox regimen
[2018-11-04] MEDS: NICOTINE 7 MG/24 HOURS TOPICAL PATCH TD SCH (10:09)
[2018-11-04] MEDS: PRENATAL VITAMINS W/ FOLIC ACID TABLET (FP) PO SCH (10:09)
[2018-11-04] MEDS ORDERED: METHADONE HCL 10 MG TABLET PO ONE (10:15)
[2018-11-04 10:39] LABS: BILIRUBIN,TOTAL 0.4 mg/dL (0.2-1); BLOOD UREA NITROGEN 15.4 mg/dL (7-18); CALCIUM 9.9 mg/dL (8.5-10.1); CREATININE 0.7 mg/dL (0.55-1.3); POTASSIUM 4.7 mmol/L (3.5-5.1); TOT PROT 7.4 g/dl (6.4-8.2)
[2018-11-04 10:41] LABS: HEMOGLOBIN 12.6 GM/dL (10.7-15.3); MCH 28.6 pg (25.7-33.7); MCHC 32.3 g/dl (32.0-36.0); MEAN CELL VOLUME 88.5 fl (80-96); MEAN PLT VOLUME 8.5 fl (7.5-11.1); PLATELET COUNT 229 K/MM3 (134-434); RBC 4.41 M/mm3 (3.60-5.2); RDW 16.6 % (11.6-15.6); WHITE BLOOD COUNT 3.8 K/mm3 (4.0-10.0)
[2018-11-04] MEDS ORDERED: METHADONE 40 MG, METHADONE 20 MG PO ONE (10:45)
[2018-11-04] MEDS ORDERED: METHADONE HCL 10 MG TABLET ONE (11:04)
[2018-11-04] MEDS ORDERED: METHADONE HCL 40 MG DISPERSABLE TABLET ONE (11:06)
--- NOTE | 2018-11-04 14:03 | CONSULT ---
Consultation: REQUESTING PROVIDER: CONSULT REQUEST: We have been asked to medically evaluate this patient for ( specify). HISTORY OF PRESENT ILLNESS: REVIEW OF SYSTEMS: CONSTITUTIONAL: Absent: fever, chills, diaphoresis, generalized weakness, malaise, loss of appetite, weight change HEENT: Absent: rhinorrhea, nasal congestion, throat pain, throat swelling, difficulty swallowing, mouth swelling, ear pain, eye pain, visual changes CARDIOVASCULAR: Absent: chest pain, syncope, palpitations, irregular heart rate, lightheadedness , peripheral edema RESPIRATORY: Absent: cough, shortness of breath, dyspnea with exertion, orthopnea, wheezing, stridor, hemoptysis GASTROINTESTINAL: Absent: abdominal pain, abdominal distension, nausea, vomiting, diarrhea, constipation, melena, hematochezia GENITOURINARY: Absent: dysuria, frequency, urgency, hesitancy, hematuria, flank pain, genital pain MUSCULOSKELETAL: Absent: myalgia, arthralgia, joint swelling, back pain, neck pain SKIN: Absent: rash, itching, pallor HEMATOLOGIC/IMMUNOLOGIC: Absent: easy bleeding, easy bruising, lymphadenopathy, frequent infections ENDOCRINE: Absent: unexplained weight gain, unexplained weight loss, heat intolerance, cold intolerance NEUROLOGIC: Absent: headache, focal weakness or paresthesias, dizziness, unsteady gait, seizure, mental status changes, bladder or bowel incontinence PSYCHIATRIC: Absent: anxiety, depression, suicidal or homicidal ideation, hallucinations. PHYSICAL EXAMINATION Vital Signs - 24 hr 11/03/18 11/03/18 11/03/18 15:13 18:36 21:25 Temperature 97.1 F L 98.3 F 97.3 F L Pulse Rate 82 78 83 Respiratory 16 18 18 Rate Blood Pressure 121/73 148/92 144/88 11/04/18 11/04/18 11/04/18 00:30 03:30 06:20 Temperature 98.1 F Pulse Rate 71 Respiratory 18 18 18 Rate Blood Pressure 142/86 11/04/18 11/04/18 09:23 13:43 Temperature 97.7 F 98 F Pulse Rate 86 72 Respiratory 18 18 Rate Blood Pressure 131/96 152/84 GENERAL: Awake, alert, and fully oriented, in no acute distress. HEAD: Normal with no signs of trauma. EYES: Pupils equal, round and reactive to light, extraocular movements intact, sclera anicteric, conjunctiva clear. No lid lag. EARS, NOSE, THROAT: Ears normal, nares patent, oropharynx clear without exudates. Moist mucous membranes. NECK: Normal range of motion, supple without lymphadenopathy, JVD, or masses. LUNGS: Breath sounds equal, clear to auscultation bilaterally. No wheezes, and no crackles. No accessory muscle use. HEART: Regular rate and rhythm, normal S1 and S2 without murmur, rub or gallop. ABDOMEN: Soft, nontender, not distended, normoactive bowel sounds, no guarding, no rebound, no masses. No hepatomegaly or splenomegaly. MUSCULOSKELETAL: Normal range of motion at all joints. No bony deformities or tenderness. No CVA tenderness. UPPER EXTREMITIES: 2+ pulses, warm, well-perfused. No cyanosis. No clubbing. Cap refill <2 seconds. No peripheral edema. LOWER EXTREMITIES: 2+ pulses, warm, well-perfused. No calf tenderness. No peripheral edema. NEUROLOGICAL: Cranial nerves II-XII intact. Normal speech. Normal gait. PSYCHIATRIC: Cooperative. Good eye contact. Appropriate mood and affect. SKIN: Warm, dry, normal turgor, no rashes or lesions noted. Laboratory Results - last 24 hr 11/04/18 11/04/18 08:15 08:15 WBC 3.8 L RBC 4.41 Hgb 12.6 Hct 39.0 MCV 88.5 MCH 28.6 MCHC 32.3 RDW 16.6 H Plt Count 229 MPV 8.5 Sodium 140 Potassium 4.7 Chloride 103 Carbon Dioxide 32 Anion Gap 5 L BUN 15.4 Creatinine 0.7 Est GFR (CKD-EPI)AfAm 109.91 Est GFR (CKD-EPI)NonAf 94.84 Random Glucose 92 Calcium 9.9 Total Bilirubin 0.4 AST 22 ALT 26 Alkaline Phosphatase 103 Total Protein 7.4 Albumin 4.0 Active Medications Generic Name Dose Route Start Last Admin Trade Name Freq PRN Reason Stop Dose Admin Acetaminophen 650 mg 11/03/18 17:27 Tylenol - PO Q6H PRN PAIN LEVEL 4 - 6 Acetaminophen 650 mg 11/03/18 17:27 Tylenol - PO Q6H PRN FEVER Al Hydroxide/Mg Hydroxide 30 ml 11/03/18 17:27 Mylanta Oral Suspension - PO Q6H PRN DYSPEPSIA Albuterol Sulfate 2 puff 11/03/18 17:30 Ventolin Hfa Inhaler - IH Q4H PRN ASTHMA Bismuth Subsalicylate 524 mg 11/03/18 17:27 Pepto-Bismol - PO Q1H PRN DIARRHEA Chlordiazepoxide HCl 10 mg 11/06/18 05:00 Librium - PO 11/06/18 23:01 [id number] BETSEY Chlordiazepoxide HCl 10 mg 11/07/18 05:00 Librium - PO 11/07/18 17:01 Q12H BETSEY Chlordiazepoxide HCl 10 mg 11/06/18 00:00 Librium - PO 11/07/18 00:00 Q4H PRN WITHDRAWAL(CONT SUBST) Chlordiazepoxide HCl 10 mg 11/08/18 05:00 Librium - PO 11/08/18 05:01 ONCE@0500 ONE Chlordiazepoxide HCl 50 mg 11/03/18 23:00 11/04/18 10:10 Librium - PO 11/04/18 23:01 50 mg [id number] BETSEY Administration Chlordiazepoxide HCl 25 mg 11/05/18 05:00 Librium - PO 11/05/18 23:01 [id number] BETSEY Chlordiazepoxide HCl 25 mg 11/03/18 17:27 11/03/18 18:54 Librium - PO 11/05/18 23:59 25 mg Q4H PRN Administration WITHDRAWAL(CONT SUBST) Eucalyptus/Menthol/Phenol/Sorbitol 1 each 11/03/18 17:27 Cepastat Lozenge - MM 11/09/18 17:27 Q4H PRN SORE THROAT Ibuprofen 400 mg 11/03/18 17:27 Motrin - PO Q6H PRN PAIN LEVEL 1 - 3 Magnesium Citrate 300 ml 11/03/18 17:27 Citroma - PO Q48H PRN CONSTIPATION Magnesium Hydroxide 30 ml 11/03/18 17:27 Milk Of Magnesia - PO PRN PRN CONSTIPATION Melatonin 5 mg 11/03/18 17:27 Melatonin PO HS PRN INSOMNIA Methadone HCl 40 mg/ Methadone 60 mg 11/05/18 06:00 HCl 20 mg PO 11/11/18 05:59 DAILY@0600 BETSEY Methocarbamol 500 mg 11/03/18 17:27 Robaxin - PO 11/09/18 17:27 Q6H PRN MUSCLE SPASMS Nicotine 7 mg 11/04/18 10:00 11/04/18 10:09 Nicoderm Patch - TD 7 mg DAILY BETSEY Administration Nicotine Polacrilex 2 mg 11/03/18 17:27 Nicorette Gum - BUC Q2H PRN NICOTINE REPLACEMENT RX Multivit/Folic Acid/Iron 1 tab 11/04/18 10:00 11/04/18 10:09 Vitamins (Sjr) - PO 1 tab DAILY BETSEY Administration Pseudoephedrine/Triprolidine 1 combo 11/03/18 17:27 Actifed - PO 11/09/18 17:29 Q6H PRN NASAL CONGESTION Thiamine HCl 100 mg 11/03/18 22:00 11/03/18 22:17 Vitamin B1 - PO 100 mg HS BETSEY Administration Trazodone HCl 50 mg 11/03/18 22:00 11/03/18 22:17 Desyrel - PO 50 mg HS BETSEY Administration ASSESSMENT/PLAN: Dispo: We will continue to follow the patient. Thank you for this consultative opportunity. ATTENDING PHYSICIAN STATEMENT I saw and evaluated the patient. I reviewed the resident's note and discussed the case with the resident. I agree with the resident's findings and plan as documented. SUBJECTIVE: OBJECTIVE: ASSESSMENT AND PLAN:
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
[2018-11-04] MEDS: MAGNESIUM HYDROX 2400MG/30ML ORAL SUSPENSION 30 ML CUP PO PRN (17:32)
[2018-11-04] MEDS: chlordiazePOXIDE HCL 25 MG CAPSULE PO PRN (19:29)
[2018-11-04] MEDS: THIAMINE HCL 100 MG TABLET (FP) PO SCH (22:08)
[2018-11-04] MEDS: traZODone HCL 50 MG TABLET (FP) PO SCH (22:09)
[2018-11-05] MEDS ORDERED: METHADONE HCL 10 MG TABLET ONE (04:15)
[2018-11-05] MEDS ORDERED: METHADONE HCL 40 MG DISPERSABLE TABLET ONE (04:16)
[2018-11-05] MEDS: chlordiazePOXIDE HCL 25 MG CAPSULE PO SCH ×4 (05:52→22:11)
[2018-11-05] MEDS: METHADONE 40 MG, METHADONE 20 MG PO SCH (05:52)
[2018-11-05] MEDS ORDERED: METHADONE HCL 10 MG TABLET PO SCH (06:00)
[2018-11-05] MEDS: NICOTINE 7 MG/24 HOURS TOPICAL PATCH TD SCH (10:21)
[2018-11-05] MEDS: PRENATAL VITAMINS W/ FOLIC ACID TABLET (FP) PO SCH (10:21)
--- NOTE | 2018-11-05 13:40 | PN ---
[facility] CIWA - CIWA Score Nausea/Vomitin-Mild Nausea/No Vomiting Muscle Tremors: 1-None Visible, but [place] Anxiety: 2 Agitation: 2 Paroxysmal Sweats: No Perspiration Orientation: 0-Oriented Tacttile Disturbances: 1-Very Mild Itch/Numbness Auditory Disturbances: 0-None Visual Disturbances: 0-None Headache: 1-Very Mild CIWA-Ar Total Score: 8 BHS Progress Note (SOAP) Subjective: alert,irritable,anxious,interrupted sleep,pain in the body Objective: 11/05/18 13:39 Vital Signs Temperature 96 F L 11/05/18 09:15 Pulse Rate 73 11/05/18 09:15 Respiratory Rate 20 11/05/18 09:15 Blood Pressure 120/70 11/05/18 09:15 O2 Sat by Pulse Oximetry (%) 11/05/18 13:39 Laboratory Last Values WBC 3.8 K/mm3 (4.0-10.0) L 11/04/18 08:15 RBC 4.41 M/mm3 (3.60-5.2) 11/04/18 08:15 Hgb 12.6 GM/dL (10.7-15.3) 11/04/18 08:15 Hct 39.0 % (32.4-45.2) 11/04/18 08:15 MCV 88.5 fl (80-96) 11/04/18 08:15 MCH 28.6 pg (25.7-33.7) 11/04/18 08:15 MCHC 32.3 g/dl (32.0-36.0) 11/04/18 08:15 RDW 16.6 % (11.6-15.6) H 11/04/18 08:15 Plt Count 229 K/MM3 (134-434) 11/04/18 08:15 MPV 8.5 fl (7.5-11.1) 11/04/18 08:15 Sodium 140 mmol/L (136-145) 11/04/18 08:15 Potassium 4.7 mmol/L (3.5-5.1) 11/04/18 08:15 Chloride 103 mmol/L (98-107) 11/04/18 08:15 Carbon Dioxide 32 mmol/L (21-32) 11/04/18 08:15 Anion Gap 5 MMOL/L (8-16) L 11/04/18 08:15 BUN 15.4 mg/dL (7-18) 11/04/18 08:15 Creatinine 0.7 mg/dL (0.55-1.3) 11/04/18 08:15 Est GFR (CKD-EPI)AfAm 109.91 11/04/18 08:15 Est GFR (CKD-EPI)NonAf 94.84 11/04/18 08:15 Random Glucose 92 mg/dL (74-106) 11/04/18 08:15 Calcium 9.9 mg/dL (8.5-10.1) 11/04/18 08:15 Total Bilirubin 0.4 mg/dL (0.2-1) 11/04/18 08:15 AST 22 U/L (15-37) 11/04/18 08:15 ALT 26 U/L (13-61) 11/04/18 08:15 Alkaline Phosphatase 103 U/L (45-117) 11/04/18 08:15 Total Protein 7.4 g/dl (6.4-8.2) 11/04/18 08:15 Albumin 4.0 g/dl (3.4-5.0) 11/04/18 08:15 Assessment: 11/05/18 13:39 withdrawal symptom Plan: continue detox librium regimen
[2018-11-05] MEDS: MAGNESIUM HYDROX 2400MG/30ML ORAL SUSPENSION 30 ML CUP PO PRN (18:24)
[2018-11-05] MEDS: THIAMINE HCL 100 MG TABLET (FP) PO SCH (22:10)
[2018-11-05] MEDS: traZODone HCL 50 MG TABLET (FP) PO SCH (22:11)
[2018-11-06] MEDS ORDERED: chlordiazePOXIDE HCL 10 MG CAPSULE PO PRN
[2018-11-06] MEDS ORDERED: METHADONE HCL 10 MG TABLET ONE (05:12)
[2018-11-06] MEDS ORDERED: METHADONE HCL 40 MG DISPERSABLE TABLET ONE (05:13)
[2018-11-06] MEDS: METHADONE 40 MG, METHADONE 20 MG PO SCH (05:39)
[2018-11-06] MEDS: chlordiazePOXIDE HCL 10 MG CAPSULE PO SCH ×4 (05:40→22:15)
[2018-11-06] MEDS: PRENATAL VITAMINS W/ FOLIC ACID TABLET (FP) PO SCH (10:43)
[2018-11-06] MEDS: NICOTINE 7 MG/24 HOURS TOPICAL PATCH TD SCH (10:44)
--- NOTE | 2018-11-06 13:55 | PN ---
[facility] CIWA - CIWA Score Nausea/Vomitin-No Nausea/No Vomiting Muscle Tremors: 1-None Visible, but [place] Anxiety: 1-Mildly Anxious Agitation: 1-Slight > Activity Paroxysmal Sweats: 1-Minimal Palms Moist Orientation: 0-Oriented Tacttile Disturbances: 0-None Auditory Disturbances: 0-None Visual Disturbances: 0-None Headache: 0-None Present CIWA-Ar Total Score: 4 S Progress Note (SOAP) Subjective: doing well with librium detox regimen seen by psychiatrist no medical treatment recommended patient prefers return to methadone program as aftercare plan of care patient would like to leave the unit around 7 am policy on discharge hours explained to the patient Objective: 11/06/18 13:54 Vital Signs Temperature 97.7 F 11/06/18 13:14 Pulse Rate 62 11/06/18 13:14 Respiratory Rate 18 11/06/18 13:14 Blood Pressure 122/84 11/06/18 13:14 O2 Sat by Pulse Oximetry (%) Laboratory Last Values WBC 3.8 K/mm3 (4.0-10.0) L 11/04/18 08:15 RBC 4.41 M/mm3 (3.60-5.2) 11/04/18 08:15 Hgb 12.6 GM/dL (10.7-15.3) 11/04/18 08:15 Hct 39.0 % (32.4-45.2) 11/04/18 08:15 MCV 88.5 fl (80-96) 11/04/18 08:15 MCH 28.6 pg (25.7-33.7) 11/04/18 08:15 MCHC 32.3 g/dl (32.0-36.0) 11/04/18 08:15 RDW 16.6 % (11.6-15.6) H 11/04/18 08:15 Plt Count 229 K/MM3 (134-434) 11/04/18 08:15 MPV 8.5 fl (7.5-11.1) 11/04/18 08:15 Sodium 140 mmol/L (136-145) 11/04/18 08:15 Potassium 4.7 mmol/L (3.5-5.1) 11/04/18 08:15 Chloride 103 mmol/L (98-107) 11/04/18 08:15 Carbon Dioxide 32 mmol/L (21-32) 11/04/18 08:15 Anion Gap 5 MMOL/L (8-16) L 11/04/18 08:15 BUN 15.4 mg/dL (7-18) 11/04/18 08:15 Creatinine 0.7 mg/dL (0.55-1.3) 11/04/18 08:15 Est GFR (CKD-EPI)AfAm 109.91 11/04/18 08:15 Est GFR (CKD-EPI)NonAf 94.84 11/04/18 08:15 Random Glucose 92 mg/dL (74-106) 11/04/18 08:15 Calcium 9.9 mg/dL (8.5-10.1) 11/04/18 08:15 Total Bilirubin 0.4 mg/dL (0.2-1) 11/04/18 08:15 AST 22 U/L (15-37) 11/04/18 08:15 ALT 26 U/L (13-61) 11/04/18 08:15 Alkaline Phosphatase 103 U/L (45-117) 11/04/18 08:15 Total Protein 7.4 g/dl (6.4-8.2) 11/04/18 08:15 Albumin 4.0 g/dl (3.4-5.0) 11/04/18 08:15 lab noted Assessment: 11/06/18 13:54 alcohol withdrawal sx Plan: continue librium detox regimen
[2018-11-06] MEDS: THIAMINE HCL 100 MG TABLET (FP) PO SCH (22:15)
[2018-11-06] MEDS: traZODone HCL 50 MG TABLET (FP) PO SCH (22:15)
[2018-11-07] MEDS ORDERED: METHADONE HCL 10 MG TABLET ONE (04:15)
[2018-11-07] MEDS ORDERED: METHADONE HCL 40 MG DISPERSABLE TABLET ONE (04:15)
[2018-11-07] MEDS ORDERED: chlordiazePOXIDE HCL 10 MG CAPSULE PO SCH (05:00)
[2018-11-07] MEDS: METHADONE 40 MG, METHADONE 20 MG PO SCH (05:24)
[2018-11-07 06:28] VITALS: BP 109/74; PULSE 70; TEMP 97.6
--- NOTE | 2018-11-07 18:35 | DS ---
[facility] Detox Discharge Summary Admission Date: 11/03/18 Discharge Date: 11/07/18 - History Present History: Alcohol Dependence, Opioid Dependence Additional Comments: PATIENT RETURNING TO [facility] ([place], [place] WHERE SHE HAS PREVIOUSLY BEEN A CLIENT, FOR AFTERCARE. PATIENT WAS DISCHARGED FROM DETOX UNIT IN STABLE MEDICAL CONDITION. Pertinent Past History: Asthma, Anxiety, Depression, H.I.V., Swollen Lip, Bipolar disorder, M.M.T.P., Nicotine Dependence. - Physical Exam Results Vital Signs: Vital Signs Temperature 97.6 F 11/07/18 06:27 Pulse Rate 70 11/07/18 06:27 Respiratory Rate 18 11/07/18 06:27 Blood Pressure 109/74 11/07/18 06:27 O2 Sat by Pulse Oximetry (%) Pertinent Admission Physical Exam Findings: WITHDRAWAL SYMPTOMS. Laboratory Tests 11/04/18 11/04/18 08:15 08:15 WBC 3.8 L RBC 4.41 Hgb 12.6 Hct 39.0 MCV 88.5 MCH 28.6 MCHC 32.3 RDW 16.6 H Plt Count 229 MPV 8.5 Sodium 140 Potassium 4.7 Chloride 103 Carbon Dioxide 32 Anion Gap 5 L BUN 15.4 Creatinine 0.7 Est GFR (CKD-EPI)AfAm 109.91 Est GFR (CKD-EPI)NonAf 94.84 Random Glucose 92 Calcium 9.9 Total Bilirubin 0.4 AST 22 ALT 26 Alkaline Phosphatase 103 Total Protein 7.4 Albumin 4.0 LABS NOTED. - Treatment Hospital Course: Detox Protocol Followed, Detoxed Safely, Responded well, Discharged Condition Good Patient has Accepted a Rehab Referral to: PATIENT RETURNING TO [facility] ([place] - Medication Discharge Medications: Ambulatory Orders traZODone HCL [Trazodone HCl] 50 mg PO HS 09/20/17 Escitalopram Oxalate [Lexapro -] 20 mg PO DAILY #30 tablet 08/13/18 Albuterol Sulfate Inhaler - [Ventolin HFA Inhaler -] 2 inh PO PRN PRN #1 inhaler 11/06/18 - Diagnosis (1) Alcohol dependence with uncomplicated withdrawal Status: Acute (2) Swollen lip Status: Acute (3) Asthma Status: Chronic Qualifiers: Asthma severity: mild Asthma persistence: intermittent Asthma complication type: uncomplicated Qualified Code(s): J45.20 - Mild intermittent asthma, uncomplicated (4) HIV (human immunodeficiency virus infection) Status: Chronic Qualifiers: HIV symptom status: asymptomatic Qualified Code(s): Z21 - Asymptomatic human immunodeficiency virus [HIV] infection status (5) Methadone maintenance therapy patient Status: Chronic (6) Nicotine dependence Status: Chronic Qualifiers: Nicotine product type: cigarettes Substance use status: in withdrawal Qualified Code(s): F17.213 - Nicotine dependence, cigarettes, with withdrawal (7) Opioid use disorder Status: Chronic (8) Substance induced mood disorder Status: Chronic - AMA Did Patient Leave Against Medical Advice: No BHS CIWA - CIWA Score Nausea/Vomitin-No Nausea/No Vomiting Muscle Tremors: None Anxiety: 2 Agitation: 1-Slight > Activity Paroxysmal Sweats: No Perspiration Orientation: 0-Oriented Tacttile Disturbances: 0-None Auditory Disturbances: 0-None Visual Disturbances: 0-None Headache: 0-None Present CIWA-Ar Total Score: 3
[2018-11-08] MEDS ORDERED: chlordiazePOXIDE HCL 10 MG CAPSULE PO ONE (05:00)
== END 2018-11-07 08:50 | disposition home or self-care (01) | DRG 773 ==
LOC: YASAS 13:30 → Y3N 17:13
PROVIDERS: ADMIT Surgery; ATTEND Surgery
PROC: HZ2ZZZZ Detoxification Services for Substance Abuse Treatment (ICD-10-PCS; principal; 2018-11-03)
DX: F10.230 Alcohol dependence with withdrawal, uncomplicated (principal); F11.20 Opioid dependence, uncomplicated; F17.213 Nicotine dependence, cigarettes, with withdrawal; F19.24 Other psychoactive substance dependence with psychoactive substance-induced mood disorder; J45.20 Mild intermittent asthma, uncomplicated; R22.0 Localized swelling, mass and lump, head
CPT/HCPCS: 36415; 80053; 85027

== ENCOUNTER 2018-12-02 16:40 | Inpatient (IN) | payer OTHER ==
[2018-12-02 17:21] VITALS: BMI 21.0
[2018-12-02] MEDS ORDERED: ALBUTEROL SO4 8 GM HFA INHALER IH PRN (18:20)
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
[2018-12-02] MEDS ORDERED: chlordiazePOXIDE HCL 10 MG CAPSULE PO PRN (18:22)
[2018-12-02] MEDS ORDERED: MAGNESIUM HYDROX 2400MG/30ML ORAL SUSPENSION 30 ML CUP PO PRN (18:23)
[2018-12-02] MEDS ORDERED: MAGNESIUM CITRATE 300 ML BOTTLE PO PRN (18:23)
[2018-12-02] MEDS ORDERED: BISMUTH SUBSALICYLATE 524 MG/30 ML UD PO PRN (18:23)
[2018-12-02] MEDS ORDERED: hydrOXYzine PAMOATE 25 MG CAPSULE (FP) PO PRN (18:23)
[2018-12-02] MEDS ORDERED: MENTHOL/PHENOL 1 EACH UD MM PRN (18:23)
[2018-12-02] MEDS ORDERED: ACETAMINOPHEN 325 MG TABLET (FP) PO PRN ×2 (18:23)
[2018-12-02] MEDS ORDERED: MAG HYDROX/AL HYDROX/SIMETH 30 ML UNIT-DOSE CUP PO PRN (18:23)
[2018-12-02] MEDS ORDERED: IBUPROFEN 400 MG TABLET (FP) PO PRN (18:23)
[2018-12-02] MEDS ORDERED: ALBUTEROL SO4 0.083% IH SOL 2.5 MG/3 ML VIAL.NEB. NEB PRN (18:30)
[2018-12-02] MEDS: THIAMINE HCL 100 MG TABLET (FP) PO SCH (21:11)
[2018-12-02] MEDS: chlordiazePOXIDE HCL 25 MG CAPSULE PO SCH (21:11)
[2018-12-02] MEDS: MELATONIN 5 MG TABLETS PO PRN (21:14)
[2018-12-02] MEDS ORDERED: ASPIRIN 81 MG CHEWABLE TABLETS PO ONE (21:43)
[2018-12-02] MEDS ORDERED: cloNIDine HCL 0.1 MG TABLET PO ONE (23:19)
--- NOTE | 2018-12-02 23:19 | PN ---
Lori Progress Note Note: Patient complained of chest pain. Blood pressure B/P 162/96 Vital Signs Temperature 98.3 F 12/02/18 20:56 Pulse Rate 90 12/02/18 20:56 Respiratory Rate 18 12/02/18 20:56 Blood Pressure 162/96 12/02/18 20:56 O2 Sat by Pulse Oximetry (%) Action: EKG stat Aspirin 81mg tablet 0ral Clonidine 0.1mg tablet oral daily
[2018-12-03] MEDS: chlordiazePOXIDE HCL 25 MG CAPSULE PO SCH ×3 (05:48→22:13)
--- NOTE | 2018-12-03 09:43 | EKG ---
Test Reason : Blood Pressure : / mmHG Vent. Rate : 074 BPM Atrial Rate : 074 BPM P-R Int : 148 ms QRS Dur : 082 ms QT Int : 392 ms P-R-T Axes : 071 061 057 degrees QTc Int : 435 ms NORMAL SINUS RHYTHM POSSIBLE LEFT ATRIAL ENLARGEMENT LEFT VENTRICULAR HYPERTROPHY ABNORMAL ECG WHEN COMPARED WITH ECG OF 21-DEC-2017 18:30, T WAVE AMPLITUDE HAS INCREASED IN LATERAL LEADS Confirmed by ULICES METZ, DORY ([id number]) on 12/03/2018 9:43:28 AM Referred By: Confirmed By:DORY ELENA MD
--- NOTE | 2018-12-03 10:03 | PN ---
[facility] CIWA - CIWA Score Nausea/Vomitin-Mild Nausea/No Vomiting Muscle Tremors: 3 Anxiety: 4-Mod. Anxious/Guarded Agitation: 3 Paroxysmal Sweats: 2 Orientation: 2-Disoriented Date<2 days (date of week day of month) Tacttile Disturbances: 0-None Auditory Disturbances: 0-None Visual Disturbances: 0-None Headache: 0-None Present CIWA-Ar Total Score: 15 S Progress Note (SOAP) Subjective: 58 years old female multiple patient [facility] detox admission taking methadone 70 mg po daily tremor anxiety restlessness Objective: 12/03/18 10:04 Vital Signs Temperature 97.8 F 12/03/18 09:25 Pulse Rate 86 12/03/18 09:25 Respiratory Rate 18 12/03/18 09:25 Blood Pressure 131/91 12/03/18 09:25 O2 Sat by Pulse Oximetry (%) 12/03/18 10:05 lab see 11/04/18 result no indication for repeat admission lab Assessment: 12/03/18 10:06 alcohol withdrawal sx Plan: continue librium detox regimen
[2018-12-03] MEDS: PRENATAL VITAMINS W/ FOLIC ACID TABLET (FP) PO SCH (10:07)
[2018-12-03] MEDS ORDERED: METHADONE HCL 10 MG TABLET PO ONE (11:27)
[2018-12-03] MEDS ORDERED: METHADONE HCL 40 MG DISPERSABLE TABLET ONE (12:29)
[2018-12-03] MEDS ORDERED: METHADONE HCL 10 MG TABLET ONE (12:29)
[2018-12-03] MEDS ORDERED: METHADONE 40 MG, METHADONE 30 MG PO ONE (12:30)
[2018-12-03] MEDS: amLODIPine BESYLATE 10 MG TABLET (FP) PO SCH (12:35)
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
[2018-12-03] MEDS: MELATONIN 5 MG TABLETS PO PRN (22:14)
[2018-12-03] MEDS: THIAMINE HCL 100 MG TABLET (FP) PO SCH (22:14)
[2018-12-03] MEDS: traZODone HCL 50 MG TABLET (FP) PO SCH (22:15)
[2018-12-04] MEDS ORDERED: METHADONE HCL 40 MG DISPERSABLE TABLET ONE (05:05)
[2018-12-04] MEDS ORDERED: METHADONE HCL 10 MG TABLET ONE (05:05)
[2018-12-04] MEDS: chlordiazePOXIDE 5 MG CAPSULE PO SCH ×3 (05:18→22:18)
[2018-12-04] MEDS: METHADONE 40 MG, METHADONE 30 MG PO SCH (05:18)
[2018-12-04] MEDS ORDERED: METHADONE HCL 10 MG TABLET PO SCH (06:00)
[2018-12-04] MEDS ORDERED: ESCITALOPRAM OXALATE 10 MG TABLET (FP) ONE (09:16)
[2018-12-04] MEDS: amLODIPine BESYLATE 10 MG TABLET (FP) PO SCH (10:12)
[2018-12-04] MEDS: ESCITALOPRAM OXALATE 20 MG TABLET (FP) PO SCH (10:12)
[2018-12-04] MEDS: PRENATAL VITAMINS W/ FOLIC ACID TABLET (FP) PO SCH (10:13)
--- NOTE | 2018-12-04 13:53 | PN ---
[facility] CIWA - CIWA Score Nausea/Vomitin-Mild Nausea/No Vomiting Muscle Tremors: 2 Anxiety: 2 Agitation: 2 Paroxysmal Sweats: No Perspiration Orientation: 0-Oriented Tacttile Disturbances: 1-Very Mild Itch/Numbness Auditory Disturbances: 0-None Visual Disturbances: 0-None Headache: 2-Mild CIWA-Ar Total Score: 10 BHS COWS - Scale Resting Pulse: 0= NC 80 or Below Sweatin= No chills or Flushing Restless Observation: 1= Difficult to Sit Still Pupil Size: 1= Pupils >than Normal Bone or Joint Aches: 1= Mild Discomfort Runny Nose/ Eye Tearin= Nasal Congestion GI Upset > 30mins: 1= Stomach Cramp Tremor Observation of Outstretched Hands: 1= Tremor [place], Not Seen Yawning Observation: 1= 1-2x During Session Anxiety or Irritability: 2=Irritable/Anxious Goose Flesh Skin: 0=Smooth Skin COWS Score: 9 BHS Progress Note (SOAP) Subjective: alert,irritable,anxious,interrupted sleep,tremor,pain in the body and back Objective: 12/04/18 13:51 Vital Signs Temperature 97.5 F L 12/04/18 09:31 Pulse Rate 72 12/04/18 09:31 Respiratory Rate 18 12/04/18 09:31 Blood Pressure 120/86 12/04/18 09:31 O2 Sat by Pulse Oximetry (%) Assessment: 12/04/18 13:51 withdrawal symptom Plan: continue detox methadone and librium regimen
[2018-12-04] MEDS: THIAMINE HCL 100 MG TABLET (FP) PO SCH (22:18)
[2018-12-04] MEDS: traZODone HCL 50 MG TABLET (FP) PO SCH (22:18)
[2018-12-05] MEDS ORDERED: chlordiazePOXIDE HCL 10 MG CAPSULE PO PRN
[2018-12-05] MEDS ORDERED: METHADONE HCL 40 MG DISPERSABLE TABLET ONE (04:08)
[2018-12-05] MEDS ORDERED: METHADONE HCL 10 MG TABLET ONE (04:08)
[2018-12-05] MEDS ORDERED: chlordiazePOXIDE HCL 10 MG CAPSULE PO SCH (05:00)
[2018-12-05] MEDS: METHADONE 40 MG, METHADONE 30 MG PO SCH (06:12)
[2018-12-05] MEDS ORDERED: ESCITALOPRAM OXALATE 10 MG TABLET (FP) ONE (08:26)
[2018-12-05 09:10] VITALS: BP 94/71; PULSE 87; TEMP 98.8
[2018-12-05] MEDS ORDERED: NICOTINE 21 MG/24 HOURS TOPICAL PATCH TD SCH (10:15)
[2018-12-05] MEDS: ESCITALOPRAM OXALATE 20 MG TABLET (FP) PO SCH (10:17)
[2018-12-05] MEDS: PRENATAL VITAMINS W/ FOLIC ACID TABLET (FP) PO SCH (10:17)
[2018-12-05] MEDS: amLODIPine BESYLATE 10 MG TABLET (FP) PO SCH (10:17)
--- NOTE | 2018-12-05 11:39 | PN ---
S CIWA - CIWA Score Nausea/Vomitin-No Nausea/No Vomiting Muscle Tremors: 1-None Visible, but [place] Anxiety: 1-Mildly Anxious Agitation: 1-Slight > Activity Paroxysmal Sweats: No Perspiration Orientation: 0-Oriented Tacttile Disturbances: 0-None Auditory Disturbances: 0-None Visual Disturbances: 0-None Headache: 1-Very Mild CIWA-Ar Total Score: 4 BHS Progress Note (SOAP) Subjective: alert,anxious Objective: 12/05/18 11:37 Vital Signs Temperature 98.8 F 12/05/18 09:09 Pulse Rate 87 12/05/18 09:09 Respiratory Rate 18 12/05/18 09:09 Blood Pressure 94/71 12/05/18 09:09 O2 Sat by Pulse Oximetry (%) Assessment: 12/05/18 11:37 no withdrawal symptom Plan: stable for discharge today,follow up with methadone maintenance program
--- NOTE | 2018-12-05 11:41 | DS ---
[facility] Detox Discharge Summary Admission Date: 12/02/18 Discharge Date: 12/05/18 - History Present History: Alcohol Dependence, Opioid Dependence, MMTP Additional Comments: stable for dischare,follow up with methadone maintenance program and pmd for medical problem Pertinent Past History: asthma hypertension mmtp nicotine dependence hiv - Physical Exam Results Vital Signs: Vital Signs Temperature 98.8 F 12/05/18 09:09 Pulse Rate 87 12/05/18 09:09 Respiratory Rate 18 12/05/18 09:09 Blood Pressure 94/71 12/05/18 09:09 O2 Sat by Pulse Oximetry (%) Pertinent Admission Physical Exam Findings: withdrawal symptom Vital Signs Temperature 98.8 F 12/05/18 09:09 Pulse Rate 87 12/05/18 09:09 Respiratory Rate 18 12/05/18 09:09 Blood Pressure 94/71 12/05/18 09:09 O2 Sat by Pulse Oximetry (%) - Treatment Hospital Course: Detox Protocol Followed, Detoxed Safely, Responded well, Discharged Condition Good Patient has Accepted a Rehab Referral to: declined - Medication Discharge Medications: Ambulatory Orders traZODone HCL [Trazodone HCl] 50 mg PO HS 09/20/17 Escitalopram Oxalate [Lexapro -] 20 mg PO DAILY #30 tablet 08/13/18 Albuterol Sulfate Inhaler - [Ventolin HFA Inhaler -] 2 inh PO PRN PRN #1 inhaler 11/06/18 - Diagnosis (1) Alcohol dependence with uncomplicated withdrawal Current Visit: Yes Status: Acute (2) Nicotine dependence Current Visit: Yes Status: Chronic Qualifiers: Nicotine product type: cigarettes (3) Opioid dependence on agonist therapy Current Visit: Yes Status: Chronic (4) HIV (human immunodeficiency virus infection) Current Visit: No Status: Chronic Qualifiers: HIV symptom status: asymptomatic Qualified Code(s): Z21 - Asymptomatic human immunodeficiency virus [HIV] infection status - AMA Did Patient Leave Against Medical Advice: No
[2018-12-06] MEDS ORDERED: chlordiazePOXIDE HCL 10 MG CAPSULE PO ONE (05:00)
== END 2018-12-05 11:54 | disposition home or self-care (01) | DRG 773 ==
LOC: YASAS 16:40 → Y3N 18:51
PROVIDERS: ADMIT Allergy & Immunology; ATTEND Allergy & Immunology
PROC: HZ2ZZZZ Detoxification Services for Substance Abuse Treatment (ICD-10-PCS; principal; 2018-12-02)
DX: F10.230 Alcohol dependence with withdrawal, uncomplicated (principal); F11.20 Opioid dependence, uncomplicated; F14.20 Cocaine dependence, uncomplicated; F17.210 Nicotine dependence, cigarettes, uncomplicated; F19.24 Other psychoactive substance dependence with psychoactive substance-induced mood disorder; Z21 Asymptomatic human immunodeficiency virus [HIV] infection status; G47.00 Insomnia, unspecified; R07.9 Chest pain, unspecified; Z91.5 Personal history of self-harm
CPT/HCPCS: 93005; 93010; J0735

== ENCOUNTER 2019-03-15 13:42 | Inpatient (IN) | payer OTHER ==
[2019-03-15 15:04] VITALS: BMI 23.0
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
[2019-03-15] MEDS ORDERED: ALBUTEROL SO4 2.5/IPRATROPIUM 0.5 INH SOL 3 ML VIAL.NEB. NEB PRN (15:46)
[2019-03-15] MEDS ORDERED: ALBUTEROL SO4 8 GM HFA INHALER IH PRN ×2 (15:46→18:24)
[2019-03-15] MEDS ORDERED: MELATONIN 5 MG TABLETS PO PRN (15:47)
[2019-03-15] MEDS ORDERED: MAG HYDROX/AL HYDROX/SIMETH 30 ML UNIT-DOSE CUP PO PRN (15:47)
[2019-03-15] MEDS ORDERED: guaiFENesin 200 MG/10 ML 10 ML UNIT-DOSE CUPS PO PRN (15:47)
[2019-03-15] MEDS ORDERED: MENTHOL/PHENOL 1 EACH UD MM PRN (15:47)
[2019-03-15] MEDS ORDERED: MAGNESIUM CITRATE 300 ML BOTTLE PO PRN (15:47)
[2019-03-15] MEDS ORDERED: ACETAMINOPHEN 325 MG TABLET (FP) PO PRN ×2 (15:47)
[2019-03-15] MEDS ORDERED: IBUPROFEN 400 MG TABLET (FP) PO PRN (15:47)
[2019-03-15] MEDS ORDERED: P-EPHED 60MG/TRIPROLIDI 2.5MG TABLET PO PRN (15:47)
[2019-03-15] MEDS ORDERED: MAGNESIUM HYDROX 2400MG/30ML ORAL SUSPENSION 30 ML CUP PO PRN (15:47)
[2019-03-15] MEDS ORDERED: hydrOXYzine PAMOATE 25 MG CAPSULE (FP) PO PRN (15:47)
[2019-03-15] MEDS ORDERED: BISMUTH SUBSALICYLATE 524 MG/30 ML UD PO PRN (15:47)
[2019-03-15] MEDS ORDERED: chlordiazePOXIDE HCL 25 MG CAPSULE PO PRN (15:53)
[2019-03-15] MEDS ORDERED: ASPIRIN 81 MG CHEWABLE TABLETS PO ONE (16:00)
[2019-03-15] MEDS: chlordiazePOXIDE HCL 25 MG CAPSULE PO SCH ×2 (17:27→22:04)
[2019-03-15] MEDS: THIAMINE HCL 100 MG TABLET (FP) PO SCH (22:04)
[2019-03-16] MEDS: chlordiazePOXIDE HCL 25 MG CAPSULE PO SCH ×4 (06:21→22:14)
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
[2019-03-16] MEDS ORDERED: METHADONE HCL 10 MG TABLET PO ONE (09:23)
[2019-03-16] MEDS ORDERED: METHADONE 40 MG, METHADONE 30 MG PO ONE (09:40)
[2019-03-16] MEDS ORDERED: METHADONE HCL 40 MG DISPERSABLE TABLET ONE (10:05)
[2019-03-16] MEDS ORDERED: METHADONE HCL 10 MG TABLET ONE (10:05)
[2019-03-16] MEDS ORDERED: ESCITALOPRAM OXALATE 10 MG TABLET ONE (10:06)
[2019-03-16 10:08] LABS: HEMATOCRIT 37.7 % (32.4-45.2); HEMOGLOBIN 12.1 GM/dL (10.7-15.3); MCHC 32.1 g/dl (32.0-36.0); MEAN CELL VOLUME 90.3 fl (80-96); MEAN PLT VOLUME 8.5 fl (7.5-11.1); PLATELET COUNT 228 K/MM3 (134-434); RBC 4.17 M/mm3 (3.60-5.2); RDW 17.1 % (11.6-15.6); WHITE BLOOD COUNT 3.1 K/mm3 (4.0-10.0)
[2019-03-16] MEDS: ESCITALOPRAM OXALATE 20 MG TABLET PO SCH (10:22)
[2019-03-16] MEDS: PRENATAL VITAMINS W/ FOLIC ACID TABLET (FP) PO SCH (10:22)
[2019-03-16 10:36] LABS: ALBUMIN 3.8 g/dl (3.4-5.0); BILIRUBIN,TOTAL 0.5 mg/dL (0.2-1); CALCIUM 9.2 mg/dL (8.5-10.1); CREATININE 0.6 mg/dL (0.55-1.3); POTASSIUM 4.8 mmol/L (3.5-5.1); TOT PROT 7.3 g/dl (6.4-8.2)
[2019-03-16] MEDS ORDERED: NICOTINE POLACRILEX 2 MG GUM BUC PRN (12:13)
[2019-03-16] MEDS: NICOTINE 14 MG/24 HOURS TOPICAL PATCH TD SCH (12:45)
--- NOTE | 2019-03-16 15:30 | PN ---
S CIWA - CIWA Score Nausea/Vomitin-Mild Nausea/No Vomiting Muscle Tremors: 2 Anxiety: 3 Agitation: 1-Slight > Activity Paroxysmal Sweats: 2 Orientation: 0-Oriented Tacttile Disturbances: 0-None Auditory Disturbances: 0-None Visual Disturbances: 1-Very Mild Sensitivity Headache: 2-Mild CIWA-Ar Total Score: 12 BHS Progress Note (SOAP) Subjective: 58 years old female admitted on 03/15/19 for alcohol withdrawal sx management treating with librium detox regiment stated having hypertension x 2 years treated with amlodipine 10 mg po reports only when drinking alcohol the bp goes up Objective: 03/16/19 15:44 Vital Signs Temperature 96.6 F L 03/16/19 12:42 Pulse Rate 77 03/16/19 12:42 Respiratory Rate 16 03/16/19 12:42 Blood Pressure 123/84 03/16/19 12:42 O2 Sat by Pulse Oximetry (%) Laboratory Last Values WBC 3.1 K/mm3 (4.0-10.0) L 03/16/19 07:30 RBC 4.17 M/mm3 (3.60-5.2) 03/16/19 07:30 Hgb 12.1 GM/dL (10.7-15.3) 03/16/19 07:30 Hct 37.7 % (32.4-45.2) 03/16/19 07:30 MCV 90.3 fl (80-96) 03/16/19 07:30 MCH 29.0 pg (25.7-33.7) 03/16/19 07:30 MCHC 32.1 g/dl (32.0-36.0) 03/16/19 07:30 RDW 17.1 % (11.6-15.6) H 03/16/19 07:30 Plt Count 228 K/MM3 (134-434) 03/16/19 07:30 MPV 8.5 fl (7.5-11.1) 03/16/19 07:30 Sodium 137 mmol/L (136-145) 03/16/19 07:30 Potassium 4.8 mmol/L (3.5-5.1) 03/16/19 07:30 Chloride 100 mmol/L (98-107) 03/16/19 07:30 Carbon Dioxide 35 mmol/L (21-32) H 03/16/19 07:30 Anion Gap 2 MMOL/L (8-16) L 03/16/19 07:30 BUN 18.0 mg/dL (7-18) 03/16/19 07:30 Creatinine 0.6 mg/dL (0.55-1.3) 03/16/19 07:30 Est GFR (CKD-EPI)AfAm 115.63 03/16/19 07:30 Est GFR (CKD-EPI)NonAf 99.77 03/16/19 07:30 Random Glucose 101 mg/dL (74-106) 03/16/19 07:30 Calcium 9.2 mg/dL (8.5-10.1) 03/16/19 07:30 Total Bilirubin 0.5 mg/dL (0.2-1) 03/16/19 07:30 AST 26 U/L (15-37) 03/16/19 07:30 ALT 27 U/L (13-61) 03/16/19 07:30 Alkaline Phosphatase 116 U/L (45-117) 03/16/19 07:30 Total Protein 7.3 g/dl (6.4-8.2) 03/16/19 07:30 Albumin 3.8 g/dl (3.4-5.0) 03/16/19 07:30 RPR Titer Nonreactive (NONREACTIVE) 03/16/19 07:30 lab noted Assessment: 03/16/19 15:45 alcohol withdrawal Plan: librium regiment methadone 70 mg po
[2019-03-16] MEDS: amLODIPine BESYLATE 10 MG TABLET (FP) PO SCH (18:04)
[2019-03-16] MEDS: THIAMINE HCL 100 MG TABLET (FP) PO SCH (22:14)
[2019-03-17] MEDS ORDERED: METHADONE HCL 10 MG TABLET ONE (04:41)
[2019-03-17] MEDS ORDERED: METHADONE HCL 40 MG DISPERSABLE TABLET ONE (04:42)
[2019-03-17] MEDS: chlordiazePOXIDE HCL 25 MG CAPSULE PO SCH ×4 (05:17→22:06)
[2019-03-17] MEDS: METHADONE 40 MG, METHADONE 30 MG PO SCH (05:17)
[2019-03-17] MEDS ORDERED: METHADONE HCL 40 MG DISPERSABLE TABLET PO SCH (06:00)
[2019-03-17] MEDS ORDERED: ESCITALOPRAM OXALATE 10 MG TABLET ONE (09:32)
[2019-03-17] MEDS: NICOTINE 14 MG/24 HOURS TOPICAL PATCH TD SCH (10:12)
[2019-03-17] MEDS: amLODIPine BESYLATE 10 MG TABLET (FP) PO SCH (10:13)
[2019-03-17] MEDS: ESCITALOPRAM OXALATE 20 MG TABLET PO SCH (10:13)
[2019-03-17] MEDS: PRENATAL VITAMINS W/ FOLIC ACID TABLET (FP) PO SCH (10:13)
--- NOTE | 2019-03-17 11:20 | PN ---
S CIWA - CIWA Score Nausea/Vomitin-No Nausea/No Vomiting Muscle Tremors: 3 Anxiety: 2 Agitation: 0-Normal Activity Paroxysmal Sweats: 2 Orientation: 0-Oriented Tacttile Disturbances: 0-None Auditory Disturbances: 0-None Visual Disturbances: 1-Very Mild Sensitivity Headache: 1-Very Mild CIWA-Ar Total Score: 9 S Progress Note (SOAP) Subjective: 58 years old female admitted on 04/02/19 for alcohol withdrawal sx management treating with librium detox regiment requests to be seen by a psychiatrist for psychotropic medication dosage adjustment psychiatric referral reports trouble sleep at night belsomra 5 mg po x 1 hs Objective: 03/17/19 13:42 Vital Signs Temperature 97.8 F 03/17/19 12:32 Pulse Rate 71 03/17/19 12:32 Respiratory Rate 18 03/17/19 12:32 Blood Pressure 106/74 03/17/19 12:32 O2 Sat by Pulse Oximetry (%) Laboratory Last Values WBC 3.1 K/mm3 (4.0-10.0) L 03/16/19 07:30 RBC 4.17 M/mm3 (3.60-5.2) 03/16/19 07:30 Hgb 12.1 GM/dL (10.7-15.3) 03/16/19 07:30 Hct 37.7 % (32.4-45.2) 03/16/19 07:30 MCV 90.3 fl (80-96) 03/16/19 07:30 MCH 29.0 pg (25.7-33.7) 03/16/19 07:30 MCHC 32.1 g/dl (32.0-36.0) 03/16/19 07:30 RDW 17.1 % (11.6-15.6) H 03/16/19 07:30 Plt Count 228 K/MM3 (134-434) 03/16/19 07:30 MPV 8.5 fl (7.5-11.1) 03/16/19 07:30 Sodium 137 mmol/L (136-145) 03/16/19 07:30 Potassium 4.8 mmol/L (3.5-5.1) 03/16/19 07:30 Chloride 100 mmol/L (98-107) 03/16/19 07:30 Carbon Dioxide 35 mmol/L (21-32) H 03/16/19 07:30 Anion Gap 2 MMOL/L (8-16) L 03/16/19 07:30 BUN 18.0 mg/dL (7-18) 03/16/19 07:30 Creatinine 0.6 mg/dL (0.55-1.3) 03/16/19 07:30 Est GFR (CKD-EPI)AfAm 115.63 03/16/19 07:30 Est GFR (CKD-EPI)NonAf 99.77 03/16/19 07:30 Random Glucose 101 mg/dL (74-106) 03/16/19 07:30 Calcium 9.2 mg/dL (8.5-10.1) 03/16/19 07:30 Total Bilirubin 0.5 mg/dL (0.2-1) 03/16/19 07:30 AST 26 U/L (15-37) 03/16/19 07:30 ALT 27 U/L (13-61) 03/16/19 07:30 Alkaline Phosphatase 116 U/L (45-117) 03/16/19 07:30 Total Protein 7.3 g/dl (6.4-8.2) 03/16/19 07:30 Albumin 3.8 g/dl (3.4-5.0) 03/16/19 07:30 RPR Titer Nonreactive (NONREACTIVE) 03/16/19 07:30 lab noted Assessment: 03/17/19 13:43 alcohol withdrawal methadone 70 mg po daily Plan: librium regiment
[2019-03-17] MEDS ORDERED: SUVOREXANT 5 MG TABLET PO ONE (22:00)
[2019-03-17] MEDS: THIAMINE HCL 100 MG TABLET (FP) PO SCH (22:06)
[2019-03-17] MEDS: MELATONIN 5 MG TABLETS PO PRN (22:06)
[2019-03-18] MEDS ORDERED: chlordiazePOXIDE HCL 10 MG CAPSULE PO PRN
[2019-03-18] MEDS ORDERED: METHADONE HCL 10 MG TABLET ONE (04:58)
[2019-03-18] MEDS ORDERED: METHADONE HCL 40 MG DISPERSABLE TABLET ONE (04:58)
[2019-03-18] MEDS: chlordiazePOXIDE HCL 10 MG CAPSULE PO SCH ×4 (05:12→22:05)
[2019-03-18] MEDS: METHADONE 40 MG, METHADONE 30 MG PO SCH (05:13)
[2019-03-18] MEDS ORDERED: ESCITALOPRAM OXALATE 10 MG TABLET ONE (09:30)
[2019-03-18] MEDS: PRENATAL VITAMINS W/ FOLIC ACID TABLET (FP) PO SCH (10:31)
[2019-03-18] MEDS: amLODIPine BESYLATE 10 MG TABLET (FP) PO SCH (10:31)
[2019-03-18] MEDS: ESCITALOPRAM OXALATE 20 MG TABLET PO SCH (10:31)
[2019-03-18] MEDS: NICOTINE 14 MG/24 HOURS TOPICAL PATCH TD SCH (10:32)
--- NOTE | 2019-03-18 12:21 | PN ---
S CIWA - CIWA Score Nausea/Vomitin-No Nausea/No Vomiting Muscle Tremors: 2 Anxiety: 2 Agitation: 1-Slight > Activity Paroxysmal Sweats: 1-Minimal Palms Moist Orientation: 0-Oriented Tacttile Disturbances: 0-None Auditory Disturbances: 0-None Visual Disturbances: 0-None Headache: 0-None Present CIWA-Ar Total Score: 6 BHS Progress Note (SOAP) Subjective: 58 years old female admitted on 03/15/19 for alcohol withdrawal sx management treating with librium detox regiment had citroma last night with good result patient requests imodium health teaching on GI track resting with oral fluid negative consequences of citroma with imodium Objective: 03/18/19 12:21 Vital Signs Temperature 97.7 F 03/18/19 08:45 Pulse Rate 61 03/18/19 08:45 Respiratory Rate 18 03/18/19 08:45 Blood Pressure 110/70 03/18/19 08:45 O2 Sat by Pulse Oximetry (%) Laboratory Last Values WBC 3.1 K/mm3 (4.0-10.0) L 03/16/19 07:30 RBC 4.17 M/mm3 (3.60-5.2) 03/16/19 07:30 Hgb 12.1 GM/dL (10.7-15.3) 03/16/19 07:30 Hct 37.7 % (32.4-45.2) 03/16/19 07:30 MCV 90.3 fl (80-96) 03/16/19 07:30 MCH 29.0 pg (25.7-33.7) 03/16/19 07:30 MCHC 32.1 g/dl (32.0-36.0) 03/16/19 07:30 RDW 17.1 % (11.6-15.6) H 03/16/19 07:30 Plt Count 228 K/MM3 (134-434) 03/16/19 07:30 MPV 8.5 fl (7.5-11.1) 03/16/19 07:30 Sodium 137 mmol/L (136-145) 03/16/19 07:30 Potassium 4.8 mmol/L (3.5-5.1) 03/16/19 07:30 Chloride 100 mmol/L (98-107) 03/16/19 07:30 Carbon Dioxide 35 mmol/L (21-32) H 03/16/19 07:30 Anion Gap 2 MMOL/L (8-16) L 03/16/19 07:30 BUN 18.0 mg/dL (7-18) 03/16/19 07:30 Creatinine 0.6 mg/dL (0.55-1.3) 03/16/19 07:30 Est GFR (CKD-EPI)AfAm 115.63 03/16/19 07:30 Est GFR (CKD-EPI)NonAf 99.77 03/16/19 07:30 Random Glucose 101 mg/dL (74-106) 03/16/19 07:30 Calcium 9.2 mg/dL (8.5-10.1) 03/16/19 07:30 Total Bilirubin 0.5 mg/dL (0.2-1) 03/16/19 07:30 AST 26 U/L (15-37) 03/16/19 07:30 ALT 27 U/L (13-61) 03/16/19 07:30 Alkaline Phosphatase 116 U/L (45-117) 03/16/19 07:30 Total Protein 7.3 g/dl (6.4-8.2) 03/16/19 07:30 Albumin 3.8 g/dl (3.4-5.0) 03/16/19 07:30 RPR Titer Nonreactive (NONREACTIVE) 03/16/19 07:30 lab noted Assessment: 03/18/19 12:21 alcohol withdrawal Plan: librium regiment
[2019-03-18] MEDS ORDERED: SUVOREXANT 10 MG TABLET PO ONE (22:00)
[2019-03-18] MEDS: THIAMINE HCL 100 MG TABLET (FP) PO SCH (22:05)
[2019-03-18] MEDS: MELATONIN 5 MG TABLETS PO PRN (22:08)
[2019-03-19] MEDS ORDERED: METHADONE HCL 40 MG DISPERSABLE TABLET ONE (04:49)
[2019-03-19] MEDS ORDERED: METHADONE HCL 10 MG TABLET ONE (04:49)
[2019-03-19] MEDS ORDERED: chlordiazePOXIDE HCL 10 MG CAPSULE PO SCH (05:00)
[2019-03-19] MEDS: METHADONE 40 MG, METHADONE 30 MG PO SCH (05:42)
[2019-03-19 09:31] VITALS: BP 112/78; PULSE 84; TEMP 99
[2019-03-19] MEDS: ESCITALOPRAM OXALATE 20 MG TABLET PO SCH (09:42)
[2019-03-19] MEDS: PRENATAL VITAMINS W/ FOLIC ACID TABLET (FP) PO SCH (09:42)
[2019-03-19] MEDS: NICOTINE 14 MG/24 HOURS TOPICAL PATCH TD SCH (09:42)
[2019-03-19] MEDS: amLODIPine BESYLATE 10 MG TABLET (FP) PO SCH (09:42)
--- NOTE | 2019-03-19 13:58 | DS ---
[facility] Detox Discharge Summary Admission Date: 03/15/19 Discharge Date: 03/19/19 - History Present History: Alcohol Dependence Additional Comments: 58 years old female admitted on 03/15/19 for alcohol withdrawal sx management treated with librium detox regiment patient prefers to leave the dotox unit today than as per estimated discharge of 03/20/19 patient is alert oriented x 3 speech clearly coherently ambulating steady gait case discussed with the nurse routine discharge is appropriated cardiac s1s2 regular rate rhythm respiratory clear lungs bilaterally on auscultation extremities full range of motion Pertinent Past History: time for discharge: 25 minutes - Physical Exam Results Vital Signs: Vital Signs Temperature 99.0 F 03/19/19 09:07 Pulse Rate 84 03/19/19 09:07 Respiratory Rate 18 03/19/19 09:07 Blood Pressure 112/78 03/19/19 09:07 O2 Sat by Pulse Oximetry (%) Pertinent Admission Physical Exam Findings: alcohol withdrawal Laboratory Last Values WBC 3.1 K/mm3 (4.0-10.0) L 03/16/19 07:30 RBC 4.17 M/mm3 (3.60-5.2) 03/16/19 07:30 Hgb 12.1 GM/dL (10.7-15.3) 03/16/19 07:30 Hct 37.7 % (32.4-45.2) 03/16/19 07:30 MCV 90.3 fl (80-96) 03/16/19 07:30 MCH 29.0 pg (25.7-33.7) 03/16/19 07:30 MCHC 32.1 g/dl (32.0-36.0) 03/16/19 07:30 RDW 17.1 % (11.6-15.6) H 03/16/19 07:30 Plt Count 228 K/MM3 (134-434) 03/16/19 07:30 MPV 8.5 fl (7.5-11.1) 03/16/19 07:30 Sodium 137 mmol/L (136-145) 03/16/19 07:30 Potassium 4.8 mmol/L (3.5-5.1) 03/16/19 07:30 Chloride 100 mmol/L (98-107) 03/16/19 07:30 Carbon Dioxide 35 mmol/L (21-32) H 03/16/19 07:30 Anion Gap 2 MMOL/L (8-16) L 03/16/19 07:30 BUN 18.0 mg/dL (7-18) 03/16/19 07:30 Creatinine 0.6 mg/dL (0.55-1.3) 03/16/19 07:30 Est GFR (CKD-EPI)AfAm 115.63 03/16/19 07:30 Est GFR (CKD-EPI)NonAf 99.77 03/16/19 07:30 Random Glucose 101 mg/dL (74-106) 03/16/19 07:30 Calcium 9.2 mg/dL (8.5-10.1) 03/16/19 07:30 Total Bilirubin 0.5 mg/dL (0.2-1) 03/16/19 07:30 AST 26 U/L (15-37) 03/16/19 07:30 ALT 27 U/L (13-61) 03/16/19 07:30 Alkaline Phosphatase 116 U/L (45-117) 03/16/19 07:30 Total Protein 7.3 g/dl (6.4-8.2) 03/16/19 07:30 Albumin 3.8 g/dl (3.4-5.0) 03/16/19 07:30 RPR Titer Nonreactive (NONREACTIVE) 03/16/19 07:30 lab noted - Treatment Hospital Course: Detox Protocol Followed, Detoxed Safely, Responded well, Discharged Condition Good, Rehab Referral Accepted Patient has Accepted a Rehab Referral to: [facility] - Medication Discharge Medications: Ambulatory Orders Escitalopram Oxalate [Lexapro -] 20 mg PO DAILY #30 tablet 08/13/18 Albuterol Sulfate Inhaler - [Ventolin HFA Inhaler -] 2 puff IH PRN PRN #1 inhaler 12/05/18 Amlodipine Besylate [Norvasc -] 10 mg PO DAILY #30 tablet 12/05/18 Aspirin [ASA -] 81 mg PO ONCE #30 tab.chew 12/05/18 Methadone [Dolophine -] 70 mg PO DAILY 03/15/19 - Diagnosis (1) Alcohol dependence with uncomplicated withdrawal Status: Acute (2) Alcohol-induced mood disorder Status: Suspected (3) Asthma Status: Chronic Qualifiers: Asthma severity: mild Asthma persistence: intermittent Asthma complication type: uncomplicated Qualified Code(s): J45.20 - Mild intermittent asthma, uncomplicated (4) HIV (human immunodeficiency virus infection) Status: Chronic Qualifiers: HIV symptom status: asymptomatic Qualified Code(s): Z21 - Asymptomatic human immunodeficiency virus [HIV] infection status (5) Methadone maintenance therapy patient Status: Chronic - AMA Did Patient Leave Against Medical Advice: No CIWA Score - CIWA Score Nausea/Vomitin-No Nausea/No Vomiting Muscle Tremors: 1-None Visible, but [place] Anxiety: 1-Mildly Anxious Agitation: 1-Slight > Activity Paroxysmal Sweats: 4-Forehead w/Sweat Beads Orientation: 0-Oriented Tacttile Disturbances: 0-None Auditory Disturbances: 0-None Visual Disturbances: 0-None Headache: 0-None Present CIWA-Ar Total Score: 7
[2019-03-20] MEDS ORDERED: chlordiazePOXIDE HCL 10 MG CAPSULE PO ONE (05:00)
== END 2019-03-19 09:35 | disposition home or self-care (01) | DRG 773 ==
LOC: YASAS 13:42 → Y3N 16:41
PROVIDERS: ADMIT Allergy & Immunology; ATTEND Allergy & Immunology
PROC: HZ2ZZZZ Detoxification Services for Substance Abuse Treatment (ICD-10-PCS; principal; 2019-03-15)
DX: F10.230 Alcohol dependence with withdrawal, uncomplicated (principal); F10.220 Alcohol dependence with intoxication, uncomplicated; F10.24 Alcohol dependence with alcohol-induced mood disorder; F10.282 Alcohol dependence with alcohol-induced sleep disorder; F11.20 Opioid dependence, uncomplicated; F17.210 Nicotine dependence, cigarettes, uncomplicated; F32.9 Major depressive disorder, single episode, unspecified; D64.9 Anemia, unspecified; Z21 Asymptomatic human immunodeficiency virus [HIV] infection status; J45.20 Mild intermittent asthma, uncomplicated; H91.91 Unspecified hearing loss, right ear; Z91.5 Personal history of self-harm
CPT/HCPCS: 36415; 80053; 85027; 86593

== ENCOUNTER 2019-04-10 12:26 | Inpatient (IN) | payer OTHER ==
--- NOTE | 2019-04-10 14:08 | BHS.RME ---
Substance Use & Tx History - Substance Use History Alcohol Substance amount: 2 pints Frequency of use: Daily Substance route: Oral Date of Last Use: 04/10/19 Nicotine Substance amount: 7 Frequency of use: Daily Substance route: Smoking Date of Last Use: 04/10/19 Physical/Psych/Mental Status - Behavior General Behavior: Increased activity (restlessness, agitation) Eye Contact: Decreased - Cooperativeness Cooperativeness: Cooperative - Thinking Thought Processes: Loosened - Physical Health Problems Is patient presently having any pain?: Yes (stomach) Does patient presently have any injuries (include location): No Does patient currently have a fever: No Is patient : No CIWA Nausea/Vomitin-Mild Nausea/No Vomiting Muscle Tremors: 1-None Visible, but [place] Anxiety: 2 Agitation: 2 Paroxysmal Sweats: 2 Orientation: 0-Oriented Tacttile Disturbances: 0-None Auditory Disturbances: 2-Mild Harshness/Frighten Visual Disturbances: 2-Mild Sensitivity Headache: 3-Moderate CIWA-Ar Total Score: 15
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
[2019-04-10] MEDS ORDERED: MENTHOL/PHENOL 1 EACH UD MM PRN (14:31)
[2019-04-10] MEDS ORDERED: BISMUTH SUBSALICYLATE 262 MG/15 ML BTL PO PRN (14:31)
[2019-04-10] MEDS ORDERED: MAGNESIUM CITRATE 300 ML BOTTLE PO PRN (14:31)
[2019-04-10] MEDS ORDERED: ACETAMINOPHEN 325 MG TABLET (FP) PO PRN ×2 (14:31)
[2019-04-10] MEDS ORDERED: IBUPROFEN 400 MG TABLET (FP) PO PRN (14:31)
[2019-04-10] MEDS ORDERED: chlordiazePOXIDE HCL 25 MG CAPSULE PO PRN (14:31)
[2019-04-10] MEDS ORDERED: METHOCARBAMOL 500 MG TABLET PO PRN (14:31)
[2019-04-10 15:09] VITALS: BMI 23.2
[2019-04-10] MEDS ORDERED: ASPIRIN 81 MG CHEWABLE TABLETS PO SCH (15:45)
[2019-04-10] MEDS: amLODIPine BESYLATE 10 MG TABLET (FP) PO SCH (17:06)
[2019-04-10] MEDS: chlordiazePOXIDE HCL 25 MG CAPSULE PO SCH ×2 (17:06→22:07)
[2019-04-10] MEDS: NICOTINE 14 MG/24 HOURS TOPICAL PATCH TD SCH (17:07)
[2019-04-10 17:33] LABS: HEMATOCRIT 37.7 % (32.4-45.2); HEMOGLOBIN 12.3 GM/dL (10.7-15.3); MCH 29.2 pg (25.7-33.7); MCHC 32.7 g/dl (32.0-36.0); MEAN CELL VOLUME 89.2 fl (80-96); MEAN PLT VOLUME 8.3 fl (7.5-11.1); PLATELET COUNT 283 K/MM3 (134-434); RBC 4.22 M/mm3 (3.60-5.2); RDW 16.9 % (11.6-15.6); WHITE BLOOD COUNT 6.5 K/mm3 (4.0-10.0)
[2019-04-10 17:50] LABS: ALBUMIN 4.4 g/dl (3.4-5.0); BILIRUBIN,TOTAL 0.4 mg/dL (0.2-1); BLOOD UREA NITROGEN 22.9 mg/dL (7-18); CALCIUM 9.3 mg/dL (8.5-10.1); CREATININE 0.9 mg/dL (0.55-1.3); POTASSIUM 4.5 mmol/L (3.5-5.1); TOT PROT 8.4 g/dl (6.4-8.2)
[2019-04-10] MEDS: MAG HYDROX/AL HYDROX/SIMETH 30 ML UNIT-DOSE CUP PO PRN (19:28)
[2019-04-10] MEDS: THIAMINE HCL 100 MG TABLET (FP) PO SCH (22:07)
[2019-04-10] MEDS: MELATONIN 5 MG TABLETS PO PRN (22:08)
[2019-04-11] MEDS: chlordiazePOXIDE HCL 25 MG CAPSULE PO SCH ×4 (05:49→22:13)
[2019-04-11] MEDS ORDERED: METHADONE HCL 40 MG DISPERSABLE TABLET ONE (09:04)
[2019-04-11] MEDS ORDERED: METHADONE HCL 10 MG TABLET ONE (09:04)
[2019-04-11] MEDS: PRENATAL VITAMINS W/ FOLIC ACID TABLET (FP) PO SCH (09:07)
[2019-04-11] MEDS: METHADONE 40 MG, METHADONE 30 MG PO SCH (09:07)
[2019-04-11] MEDS: amLODIPine BESYLATE 10 MG TABLET (FP) PO SCH (09:07)
[2019-04-11] MEDS ORDERED: METHADONE HCL 40 MG DISPERSABLE TABLET PO SCH (10:00)
[2019-04-11] MEDS: NICOTINE 14 MG/24 HOURS TOPICAL PATCH TD SCH (10:42)
[2019-04-11] MEDS: MAG HYDROX/AL HYDROX/SIMETH 30 ML UNIT-DOSE CUP PO PRN (10:42)
[2019-04-11] MEDS: SODIUM CHLORIDE NASAL SPRAY 44 ML BOTTLE NS PRN ×2 (14:24→22:14)
[2019-04-11] MEDS: MAGNESIUM HYDROX 2400MG/30ML ORAL SUSPENSION 30 ML CUP PO PRN ×2 (14:25→17:59)
--- NOTE | 2019-04-11 15:17 | PN ---
S CIWA - CIWA Score Nausea/Vomitin-No Nausea/No Vomiting Muscle Tremors: 3 Anxiety: 3 Agitation: 2 Paroxysmal Sweats: 1-Minimal Palms Moist Orientation: 2-Disoriented Date<2 days Tacttile Disturbances: 1-Very Mild Itch/Numbness Auditory Disturbances: 0-None Visual Disturbances: 0-None Headache: 0-None Present CIWA-Ar Total Score: 12 BHS Progress Note (SOAP) Subjective: Anxious, Tremors, Interrupted Sleep. Objective: PATIENT A & O X 2 (UNCERTAIN ABOUT CURRENT DAY/ DATE). PATIENT OBSERVED AMBULATING ON DETOX UNIT UNASSISTED. IN NO ACUTE DISTRESS. 04/11/19 15:18 Vital Signs Temperature 98.1 F 04/11/19 08:33 Pulse Rate 83 04/11/19 08:33 Respiratory Rate 16 04/11/19 08:33 Blood Pressure 122/75 04/11/19 08:33 O2 Sat by Pulse Oximetry (%) Laboratory Tests 04/10/19 04/10/19 04/10/19 14:25 14:25 14:25 WBC 6.5 RBC 4.22 Hgb 12.3 Hct 37.7 MCV 89.2 MCH 29.2 MCHC 32.7 RDW 16.9 H Plt Count 283 D MPV 8.3 Sodium 141 Potassium 4.5 Chloride 106 Carbon Dioxide 31 Anion Gap 5 L BUN 22.9 H Creatinine 0.9 Est GFR (CKD-EPI)AfAm 81.11 Est GFR (CKD-EPI)NonAf 69.99 Random Glucose 99 Calcium 9.3 Total Bilirubin 0.4 AST 29 ALT 30 Alkaline Phosphatase 121 H Total Protein 8.4 H Albumin 4.4 RPR Titer Nonreactive LABS NOTED. Assessment: 04/11/19 15:19 WITHDRAWAL SYMPTOMS. Plan: CONTINUE DETOX. INCREASE DAILY ORAL WATER INTAKE.
[2019-04-11] MEDS: ASPIRIN 81 MG CHEWABLE TABLETS PO SCH (15:27)
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
[2019-04-11] MEDS: THIAMINE HCL 100 MG TABLET (FP) PO SCH (22:14)
[2019-04-11] MEDS: MELATONIN 5 MG TABLETS PO PRN (22:14)
[2019-04-11] MEDS: ALBUTEROL SO4 HFA INHALER IH PRN (22:16)
[2019-04-12] MEDS ORDERED: METHADONE HCL 10 MG TABLET ONE (05:21)
[2019-04-12] MEDS ORDERED: METHADONE HCL 40 MG DISPERSABLE TABLET ONE (05:21)
[2019-04-12] MEDS: METHADONE 40 MG, METHADONE 30 MG PO SCH (06:01)
[2019-04-12] MEDS: chlordiazePOXIDE HCL 25 MG CAPSULE PO SCH ×4 (06:01→22:00)
[2019-04-12] MEDS: NICOTINE 14 MG/24 HOURS TOPICAL PATCH TD SCH (10:42)
[2019-04-12] MEDS: ASPIRIN 81 MG CHEWABLE TABLETS PO SCH (10:43)
[2019-04-12] MEDS: amLODIPine BESYLATE 10 MG TABLET (FP) PO SCH (10:43)
[2019-04-12] MEDS: hydrOXYzine PAMOATE 25 MG CAPSULE (FP) PO PRN (10:43)
[2019-04-12] MEDS: ESCITALOPRAM OXALATE 20 MG TABLET PO SCH (10:44)
[2019-04-12] MEDS: PRENATAL VITAMINS W/ FOLIC ACID TABLET (FP) PO SCH (10:44)
--- NOTE | 2019-04-12 14:06 | PN ---
Psychiatric Progress Note Vital Signs: Vital Signs Period Temp Pulse Resp BP Sys/Castaneda Pulse Ox Last 24 Hr 97.3 F-98.2 F 74-77 16-19 114-135/51-81 Date of Session: 04/12/19 Chief Complaint:: "i'm not sleeping. Melatonin is not working." HPI: Patient admitted to for alcohol, heroin, and nicotine dependence. Consultation ordered to address insomnia. ROS: Patient presents as fatigue, alert + oriented X3. Current Medications: Active Medications Generic Name Dose Route Start Last Admin Trade Name Freq PRN Reason Stop Dose Admin Acetaminophen 650 mg 04/10/19 14:31 04/12/19 12:46 Tylenol - PO 650 mg Q6H PRN Administration PAIN LEVEL 4 - 6 Acetaminophen 650 mg 04/10/19 14:31 Tylenol - PO Q6H PRN FEVER Al Hydroxide/Mg Hydroxide 30 ml 04/10/19 14:31 04/11/19 10:42 Mylanta Oral Suspension - PO 30 ml Q6H PRN Administration DYSPEPSIA Albuterol Sulfate 2 puff 04/10/19 14:32 04/11/19 22:16 Ventolin Hfa Inhaler - IH 2 puff PRN PRN Administration ASTHMA Amlodipine Besylate 10 mg 04/10/19 15:45 04/12/19 10:43 Norvasc - PO 10 mg DAILY BETSEY Administration Aspirin 81 mg 04/11/19 15:30 04/12/19 10:43 Asa - PO 81 mg DAILY BETSEY Administration Bismuth Subsalicylate 30 ml 04/10/19 14:31 Pepto-Bismol Liquid - PO Q1H PRN DIARRHEA Chlordiazepoxide HCl 10 mg 04/13/19 05:00 Librium - PO 04/13/19 23:01 [id number] BETSEY Chlordiazepoxide HCl 10 mg 04/14/19 05:00 Librium - PO 04/14/19 17:01 Q12H BETSEY Chlordiazepoxide HCl 10 mg 04/13/19 00:00 Librium - PO 04/14/19 00:00 Q4H PRN WITHDRAWAL(CONT SUBST) Chlordiazepoxide HCl 10 mg 04/15/19 05:00 Librium - PO 04/15/19 05:01 ONCE@0500 ONE Chlordiazepoxide HCl 25 mg 04/12/19 05:00 04/12/19 12:47 Librium - PO 04/12/19 23:01 25 mg [id number] BETSEY Administration Chlordiazepoxide HCl 25 mg 04/10/19 14:31 Librium - PO 04/12/19 23:59 Q4H PRN WITHDRAWAL(CONT SUBST) Escitalopram Oxalate 20 mg 04/12/19 10:00 04/12/19 10:44 Lexapro - PO 20 mg DAILY BETSEY Administration Eucalyptus/Menthol/Phenol/Sorbitol 1 each 04/10/19 14:31 Cepastat Lozenge - MM 04/16/19 14:31 Q4H PRN SORE THROAT Hydroxyzine Pamoate 25 mg 04/10/19 14:31 04/12/19 10:43 Vistaril - PO 04/16/19 14:31 25 mg Q6H PRN Administration For Anxiety Ibuprofen 400 mg 04/10/19 14:31 Motrin - PO Q6H PRN PAIN LEVEL 1 - 3 Magnesium Citrate 300 ml 04/10/19 14:31 Citroma - PO Q48H PRN CONSTIPATION Magnesium Hydroxide 30 ml 04/10/19 14:31 04/11/19 17:59 Milk Of Magnesia - PO 30 ml PRN PRN Administration CONSTIPATION Melatonin 5 mg 04/10/19 14:31 04/11/19 22:14 Melatonin PO 5 mg HS PRN Administration INSOMNIA Methadone HCl 40 mg/ Methadone 70 mg 04/11/19 10:00 04/12/19 06:01 HCl 30 mg PO 70 mg DAILY@0600 BETSEY Administration Methocarbamol 500 mg 04/10/19 14:31 04/10/19 22:07 Robaxin - PO 04/16/19 14:31 500 mg Q6H PRN Administration MUSCLE SPASMS Nicotine 14 mg 04/10/19 15:25 04/12/19 10:42 Nicoderm Patch - TD 14 mg DAILY BETSEY Administration Multivit/Folic Acid/Iron 1 tab 04/11/19 10:00 04/12/19 10:44 Vitamins (Sjr) - PO 1 tab DAILY BETSEY Administration Sodium Chloride 2 spray 04/11/19 13:43 04/11/19 22:14 [place] Nasal [place] - NS 2 spr BID PRN Administration NASAL CONGESTION Thiamine HCl 100 mg 04/10/19 22:00 04/11/19 22:14 Vitamin B1 - PO 100 mg HS BETSEY Administration Medication(s) Change(s): Yes. Will order Trazodone 50mg HS. Current Side Effect: No Lab tests ordered: No Lab tests reviewed: Yes Provider note:: Patient seen by Dr. Alarcon. Dr. Alarcon note read and appreciated. Patient reports poor sleep which is unresolved with melatonin. Ms. Sequeira is requesting trazodone for insomnia which she reports being effective in the past. Patient also educated on the importance of proper sleep hygiene. Will order trazodone 50mg HS. Benefits and side effects discussed. Verbal consent given. Total face to face time:: 25 Mental Status Exam - Mental Status Exam Alert and Oriented to: Time, Place, Person Cognitive Function: Good Patient Appearance: Well Groomed Mood: Withdrawn Affect: Mood Congruent Patient Behavior: Fatigued, Cooperative Speech Pattern: Appropriate Voice Loudness: Mildly Soft/Quiet Thought Process: Goal Oriented Thought Disorder: Not Present Hallucinations: Denies Suicidal Ideation: Denies Homicidal Ideation: Denies Insight/Judgement: Poor Sleep: Poorly Appetite: Fair Muscle strength/Tone: Normal Gait/Station: Normal Psychiatric Treatment Plan - Problem List (1) Alcohol dependence with uncomplicated withdrawal Current Visit: Yes (2) MDD (major depressive disorder) Current Visit: Yes Qualifiers: Major depression recurrence: unspecified whether recurrent Active/ Remission status: remission status unspecified Qualified Code(s): F32.9 - Major depressive disorder, single episode, unspecified (3) Opioid dependence on agonist therapy Current Visit: Yes (4) Substance induced mood disorder Current Visit: Yes (5) Substance-induced sleep disorder Current Visit: Yes
--- NOTE | 2019-04-12 17:14 | PN ---
[facility] CIWA - CIWA Score Nausea/Vomitin-Mild Nausea/No Vomiting Muscle Tremors: 2 Anxiety: 3 Agitation: 2 Paroxysmal Sweats: 2 Orientation: 0-Oriented Tacttile Disturbances: 0-None Auditory Disturbances: 0-None Visual Disturbances: 0-None Headache: 0-None Present CIWA-Ar Total Score: 10 S Progress Note (SOAP) Subjective: Interrupted sleep, sweating, chills Objective: 04/12/19 17:12 Last Vital Signs Temp Pulse Resp BP Pulse Ox 98.1 F 78 16 101/63 04/12/19 12:34 04/12/19 12:34 04/12/19 12:34 04/12/19 12:34 Laboratory Tests 04/10/19 04/10/19 04/10/19 14:25 14:25 14:25 WBC 6.5 RBC 4.22 Hgb 12.3 Hct 37.7 MCV 89.2 MCH 29.2 MCHC 32.7 RDW 16.9 H Plt Count 283 D MPV 8.3 Sodium 141 Potassium 4.5 Chloride 106 Carbon Dioxide 31 Anion Gap 5 L BUN 22.9 H Creatinine 0.9 Est GFR (CKD-EPI)AfAm 81.11 Est GFR (CKD-EPI)NonAf 69.99 Random Glucose 99 Calcium 9.3 Total Bilirubin 0.4 AST 29 ALT 30 Alkaline Phosphatase 121 H Total Protein 8.4 H Albumin 4.4 RPR Titer Nonreactive Labs reviewed: bun 22.9 (high) Assessment: 04/12/19 17:13 Withdrawal sxs Azotemia noted Plan: Continue detox Azotemia: encouraged PO water intake
[2019-04-12] MEDS: THIAMINE HCL 100 MG TABLET (FP) PO SCH (22:00)
[2019-04-12] MEDS: traZODone HCL 50 MG TABLET (FP) PO SCH (22:00)
[2019-04-13] MEDS ORDERED: chlordiazePOXIDE HCL 10 MG CAPSULE PO PRN
[2019-04-13] MEDS ORDERED: METHADONE HCL 10 MG TABLET ONE (05:04)
[2019-04-13] MEDS ORDERED: METHADONE HCL 40 MG DISPERSABLE TABLET ONE (05:04)
[2019-04-13] MEDS: METHADONE 40 MG, METHADONE 30 MG PO SCH (06:36)
[2019-04-13] MEDS: chlordiazePOXIDE HCL 10 MG CAPSULE PO SCH ×4 (06:37→22:13)
[2019-04-13] MEDS: ESCITALOPRAM OXALATE 20 MG TABLET PO SCH (10:26)
[2019-04-13] MEDS: amLODIPine BESYLATE 10 MG TABLET (FP) PO SCH (10:28)
[2019-04-13] MEDS: PRENATAL VITAMINS W/ FOLIC ACID TABLET (FP) PO SCH (10:28)
[2019-04-13] MEDS: NICOTINE 14 MG/24 HOURS TOPICAL PATCH TD SCH (10:28)
[2019-04-13] MEDS: ASPIRIN 81 MG CHEWABLE TABLETS PO SCH (10:28)
--- NOTE | 2019-04-13 12:08 | PN ---
S CIWA - CIWA Score Nausea/Vomitin-No Nausea/No Vomiting Muscle Tremors: 2 Anxiety: 1-Mildly Anxious Agitation: 2 Paroxysmal Sweats: 1-Minimal Palms Moist Orientation: 0-Oriented Tacttile Disturbances: 0-None Auditory Disturbances: 0-None Visual Disturbances: 0-None Headache: 0-None Present CIWA-Ar Total Score: 6 BHS Progress Note (SOAP) Subjective: headache sweats feeling better Objective: 04/13/19 12:07 Vital Signs Temperature 96.8 F L 04/13/19 08:48 Pulse Rate 75 04/13/19 08:48 Respiratory Rate 18 04/13/19 08:48 Blood Pressure 105/57 L 04/13/19 08:48 O2 Sat by Pulse Oximetry (%) aaox3 ambulating no acute distress Assessment: 04/13/19 12:07 mild withdrawal Plan: continue detox motrin/tylenol prn
[2019-04-13] MEDS: ALBUTEROL SO4 HFA INHALER IH PRN (16:37)
[2019-04-13] MEDS: MAG HYDROX/AL HYDROX/SIMETH 30 ML UNIT-DOSE CUP PO PRN (21:52)
[2019-04-13] MEDS: traZODone HCL 50 MG TABLET (FP) PO SCH (21:52)
[2019-04-13] MEDS: THIAMINE HCL 100 MG TABLET (FP) PO SCH (21:52)
[2019-04-14] MEDS ORDERED: METHADONE HCL 10 MG TABLET ONE (04:24)
[2019-04-14] MEDS ORDERED: METHADONE HCL 40 MG DISPERSABLE TABLET ONE (04:24)
[2019-04-14] MEDS: METHADONE 40 MG, METHADONE 30 MG PO SCH (06:29)
[2019-04-14] MEDS: chlordiazePOXIDE HCL 10 MG CAPSULE PO SCH ×2 (06:39→17:50)
[2019-04-14] MEDS: amLODIPine BESYLATE 10 MG TABLET (FP) PO SCH (10:29)
[2019-04-14] MEDS: ESCITALOPRAM OXALATE 20 MG TABLET PO SCH (10:30)
[2019-04-14] MEDS: ASPIRIN 81 MG CHEWABLE TABLETS PO SCH (10:30)
[2019-04-14] MEDS: NICOTINE 14 MG/24 HOURS TOPICAL PATCH TD SCH (10:30)
[2019-04-14] MEDS: PRENATAL VITAMINS W/ FOLIC ACID TABLET (FP) PO SCH (10:30)
[2019-04-14] MEDS: SODIUM CHLORIDE NASAL SPRAY 44 ML BOTTLE NS PRN (10:31)
--- NOTE | 2019-04-14 10:40 | PN ---
[facility] CIWA - CIWA Score Nausea/Vomitin-No Nausea/No Vomiting Muscle Tremors: 1-None Visible, but [place] Anxiety: 1-Mildly Anxious Agitation: 1-Slight > Activity Paroxysmal Sweats: 1-Minimal Palms Moist Orientation: 0-Oriented Tacttile Disturbances: 0-None Auditory Disturbances: 0-None Visual Disturbances: 0-None Headache: 0-None Present CIWA-Ar Total Score: 4 BHS Progress Note (SOAP) Subjective: insomnia Objective: 04/14/19 10:40 Vital Signs Temperature 99.1 F 04/14/19 08:34 Pulse Rate 87 04/14/19 08:34 Respiratory Rate 16 04/14/19 08:34 Blood Pressure 109/58 L 04/14/19 08:34 O2 Sat by Pulse Oximetry (%) aaox3 ambulating no acute distress Assessment: 04/14/19 10:40 mild withdrawals Plan: trazadone 50mg as ordered d/c in am
[2019-04-14] MEDS: MAG HYDROX/AL HYDROX/SIMETH 30 ML UNIT-DOSE CUP PO PRN (13:00)
[2019-04-14] MEDS: traZODone HCL 50 MG TABLET (FP) PO SCH (21:41)
[2019-04-14] MEDS: hydrOXYzine PAMOATE 25 MG CAPSULE (FP) PO PRN (21:41)
[2019-04-14] MEDS: THIAMINE HCL 100 MG TABLET (FP) PO SCH (21:41)
[2019-04-15] MEDS ORDERED: METHADONE HCL 10 MG TABLET ONE (04:26)
[2019-04-15] MEDS ORDERED: METHADONE HCL 40 MG DISPERSABLE TABLET ONE (04:27)
[2019-04-15] MEDS ORDERED: chlordiazePOXIDE HCL 10 MG CAPSULE PO ONE (05:00)
[2019-04-15] MEDS: METHADONE 40 MG, METHADONE 30 MG PO SCH (06:02)
--- NOTE | 2019-04-15 09:23 | DS ---
[facility] Detox Discharge Summary Admission Date: 04/10/19 Discharge Date: 04/15/19 - History Present History: Alcohol Dependence, Cocaine Dependence, MMTP - Physical Exam Results Vital Signs: Vital Signs Temperature 98.1 F 04/15/19 06:00 Pulse Rate 82 04/15/19 06:00 Respiratory Rate 16 04/15/19 06:00 Blood Pressure 118/77 04/15/19 06:00 O2 Sat by Pulse Oximetry (%) Pertinent Admission Physical Exam Findings: Vital Signs Temperature 98.1 F 04/15/19 06:00 Pulse Rate 82 04/15/19 06:00 Respiratory Rate 16 04/15/19 06:00 Blood Pressure 118/77 04/15/19 06:00 O2 Sat by Pulse Oximetry (%) Laboratory Tests 04/10/19 04/10/19 04/10/19 14:25 14:25 14:25 WBC 6.5 RBC 4.22 Hgb 12.3 Hct 37.7 MCV 89.2 MCH 29.2 MCHC 32.7 RDW 16.9 H Plt Count 283 D MPV 8.3 Sodium 141 Potassium 4.5 Chloride 106 Carbon Dioxide 31 Anion Gap 5 L BUN 22.9 H Creatinine 0.9 Est GFR (CKD-EPI)AfAm 81.11 Est GFR (CKD-EPI)NonAf 69.99 Random Glucose 99 Calcium 9.3 Total Bilirubin 0.4 AST 29 ALT 30 Alkaline Phosphatase 121 H Total Protein 8.4 H Albumin 4.4 RPR Titer Nonreactive aaox3 ambulating no acute distress +lungs CTA - Treatment Hospital Course: Detox Protocol Followed, Detoxed Safely, Responded well, Discharged Condition Good, Rehab Referral Accepted Patient has Accepted a Rehab Referral to: pt declined - Medication Discharge Medications: Ambulatory Orders Escitalopram Oxalate [Lexapro -] 20 mg PO DAILY #30 tablet 08/13/18 Albuterol Sulfate Inhaler - [Ventolin HFA Inhaler -] 2 puff IH PRN PRN #1 inhaler 12/05/18 Amlodipine Besylate [Norvasc -] 10 mg PO DAILY #30 tablet 12/05/18 Aspirin [ASA -] 81 mg PO ONCE #30 tab.chew 12/05/18 Methadone [Dolophine -] 70 mg PO DAILY 03/15/19 - Diagnosis (1) Alcohol dependence with uncomplicated withdrawal Current Visit: Yes Status: Chronic (2) Alcohol-induced mood disorder Current Visit: Yes Status: Acute (3) Alcohol-induced sleep disorder Current Visit: Yes Status: Acute (4) Substance-induced sleep disorder Current Visit: Yes Status: Acute (5) Anemia Current Visit: Yes Status: Chronic Qualifiers: Anemia type: unspecified type Qualified Code(s): D64.9 - Anemia, unspecified (6) Asthma Current Visit: Yes Status: Chronic Qualifiers: Asthma severity: mild Asthma persistence: intermittent Asthma complication type: uncomplicated Qualified Code(s): J45.20 - Mild intermittent asthma, uncomplicated (7) Bipolar disorder Current Visit: Yes Status: Chronic (8) Cocaine dependence Current Visit: Yes Status: Chronic Qualifiers: Substance use status: uncomplicated Qualified Code(s): F14.20 - Cocaine dependence, uncomplicated (9) Depressive disorder Current Visit: Yes Status: Chronic (10) HIV (human immunodeficiency virus infection) Current Visit: Yes Status: Chronic Qualifiers: HIV symptom status: asymptomatic Qualified Code(s): Z21 - Asymptomatic human immunodeficiency virus [HIV] infection status (11) Insomnia Current Visit: Yes Status: Chronic Qualifiers: Insomnia type: unspecified Qualified Code(s): G47.00 - Insomnia, unspecified (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: Chronic (13) MDD (major depressive disorder) Current Visit: Yes Status: Chronic Qualifiers: Major depression recurrence: unspecified whether recurrent Active/ Remission status: remission status unspecified Qualified Code(s): F32.9 - Major depressive disorder, single episode, unspecified (14) Methadone maintenance therapy patient Current Visit: Yes Status: Chronic (15) Nicotine dependence Current Visit: Yes Status: Chronic Qualifiers: Nicotine product type: cigarettes Substance use status: uncomplicated Qualified Code(s): F17.210 - Nicotine dependence, cigarettes, uncomplicated (16) Opioid dependence on agonist therapy Current Visit: Yes Status: Chronic (17) Substance induced mood disorder Current Visit: Yes Status: Chronic (18) Alcohol intoxication Current Visit: No Status: Acute Qualifiers: Complication of substance-induced condition: uncomplicated Qualified Code(s ): F10.920 - Alcohol use, unspecified with intoxication, uncomplicated (19) Alcohol-induced sleep disorder Current Visit: No Status: Acute (20) Alcohol use disorder Current Visit: No Status: Chronic (21) History of HIV infection Current Visit: No Status: Chronic (22) History of asthma Current Visit: No Status: Chronic (23) History of depression Current Visit: No Status: Chronic (24) Insomnia secondary to depression with anxiety Current Visit: No Status: Chronic (25) Mood disorder Current Visit: No Status: Chronic (26) Opioid use disorder Current Visit: No Status: Chronic (27) Alcohol-induced mood disorder Current Visit: No Status: Suspected (28) Drug-induced mood disorder Current Visit: No Status: Suspected (29) MDD (major depressive disorder) Current Visit: No Status: Ruled-out - AMA Did Patient Leave Against Medical Advice: No
[2019-04-15 09:41] VITALS: BP 101/58; PULSE 80; TEMP 98.8
== END 2019-04-15 09:35 | disposition home or self-care (01) | DRG 773 ==
LOC: YASAS 12:26 → Y3N 15:19 → Y6N 18:22
PROVIDERS: ADMIT Allergy & Immunology; ATTEND Allergy & Immunology
PROC: HZ2ZZZZ Detoxification Services for Substance Abuse Treatment (ICD-10-PCS; principal; 2019-04-10)
DX: F10.230 Alcohol dependence with withdrawal, uncomplicated (principal); F11.20 Opioid dependence, uncomplicated; F14.20 Cocaine dependence, uncomplicated; F17.210 Nicotine dependence, cigarettes, uncomplicated; F10.24 Alcohol dependence with alcohol-induced mood disorder; F10.282 Alcohol dependence with alcohol-induced sleep disorder; F19.24 Other psychoactive substance dependence with psychoactive substance-induced mood disorder; F19.282 Other psychoactive substance dependence with psychoactive substance-induced sleep disorder; F31.9 Bipolar disorder, unspecified; F33.9 Major depressive disorder, recurrent, unspecified; F51.05 Insomnia due to other mental disorder; Z21 Asymptomatic human immunodeficiency virus [HIV] infection status; D64.9 Anemia, unspecified; J45.20 Mild intermittent asthma, uncomplicated; K70.9 Alcoholic liver disease, unspecified
CPT/HCPCS: 36415; 80053; 85027; 86593

== ENCOUNTER 2019-08-04 09:41 | Inpatient (IN) | payer OTHER ==
--- NOTE | 2019-08-04 10:28 | BHS.RME ---
Substance Use & Tx History - Substance Use History Alcohol Substance amount: 1 pint Frequency of use: Daily Substance route: Oral Date of Last Use: 08/04/19 Heroin Substance amount: 1 bag Frequency of use: Less than 3 times per week Substance route: Inhalation (ex: sniffing or snorting) Date of Last Use: 07/31/19 Physical/Psych/Mental Status - Behavior General Behavior: Increased activity (restlessness, agitation) Eye Contact: Normal - Cooperativeness Cooperativeness: Cooperative - Thinking Thought Processes: Tight, Logical, Goal Directed - Physical Health Problems Is patient presently having any pain?: No Does patient presently have any injuries (include location): No Does patient currently have a fever: No Is patient : No CIWA Nausea/Vomitin-Mild Nausea/No Vomiting Muscle Tremors: 2 Anxiety: 4-Mod. Anxious/Guarded Agitation: 4-Moderately Restless Paroxysmal Sweats: 1-Minimal Palms Moist Orientation: 1-Uncertain about Date Tacttile Disturbances: 0-None Auditory Disturbances: 0-None Visual Disturbances: 0-None Headache: 1-Very Mild CIWA-Ar Total Score: 14
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
[2019-08-04] MEDS ORDERED: NICOTINE POLACRILEX 2 MG GUM BUC PRN (11:45)
[2019-08-04] MEDS ORDERED: BISMUTH SUBSALICYLATE 262 MG/15 ML BTL PO PRN (11:45)
[2019-08-04] MEDS ORDERED: MAGNESIUM HYDROX 2400MG/30ML ORAL SUSPENSION 30 ML CUP PO PRN (11:45)
[2019-08-04] MEDS ORDERED: IBUPROFEN 400 MG TABLET (FP) PO PRN (11:45)
[2019-08-04] MEDS ORDERED: ONDANSETRON *ODT* 4 MG TABLET SL ONE (11:45)
[2019-08-04] MEDS ORDERED: chlordiazePOXIDE HCL 25 MG CAPSULE PO PRN (11:45)
[2019-08-04] MEDS ORDERED: ACETAMINOPHEN 325 MG TABLET (FP) PO PRN ×2 (11:45)
[2019-08-04] MEDS ORDERED: MENTHOL/PHENOL 1 EACH UD MM PRN (11:45)
[2019-08-04] MEDS ORDERED: MAGNESIUM CITRATE 300 ML BOTTLE PO PRN (11:45)
[2019-08-04 12:02] VITALS: BMI 22.8
[2019-08-04] MEDS: NICOTINE 7 MG/24 HOURS TOPICAL PATCH TD SCH (13:08)
[2019-08-04] MEDS: chlordiazePOXIDE HCL 25 MG CAPSULE PO SCH ×3 (13:08→22:25)
[2019-08-04] MEDS: PRENATAL VITAMINS W/ FOLIC ACID TABLET (FP) PO SCH (13:09)
[2019-08-04] MEDS ORDERED: hydrOXYzine PAMOATE 25 MG CAPSULE (FP) PO SCH (14:00)
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
[2019-08-04 14:29] LABS: HEMATOCRIT 38.1 % (32.4-45.2); MCHC 31.5 g/dl (32.0-36.0); MEAN PLT VOLUME 8.6 fl (7.5-11.1); PLATELET COUNT 234 K/MM3 (134-434); RBC 4.28 M/mm3 (3.60-5.2); RDW 16.8 % (11.6-15.6); WHITE BLOOD COUNT 5.2 K/mm3 (4.0-10.0)
[2019-08-04 14:42] LABS: ALBUMIN 4.3 g/dl (3.4-5.0); BILIRUBIN,TOTAL 0.9 mg/dL (0.2-1); CALCIUM 9.8 mg/dL (8.5-10.1); CREATININE 1.1 mg/dL (0.55-1.3); POTASSIUM 4.1 mmol/L (3.5-5.1)
[2019-08-04] MEDS: hydrOXYzine PAMOATE 25 MG CAPSULE (FP) PO PRN (18:15)
[2019-08-04] MEDS ORDERED: MELATONIN 5 MG TABLETS PO SCH (22:00)
[2019-08-04] MEDS: THIAMINE HCL 100 MG TABLET (FP) PO SCH (22:25)
[2019-08-04] MEDS: METHOCARBAMOL 500 MG TABLET PO PRN (22:25)
[2019-08-04] MEDS: ALBUTEROL SO4 HFA INHALER IH PRN (22:25)
[2019-08-05] MEDS: chlordiazePOXIDE HCL 25 MG CAPSULE PO SCH ×4 (05:36→22:28)
[2019-08-05] MEDS ORDERED: METHADONE HCL 10 MG TABLET PO ONE (09:38)
[2019-08-05] MEDS ORDERED: METHADONE 40 MG, METHADONE 30 MG PO ONE (09:38)
[2019-08-05] MEDS: NICOTINE 7 MG/24 HOURS TOPICAL PATCH TD SCH (10:19)
[2019-08-05] MEDS: PRENATAL VITAMINS W/ FOLIC ACID TABLET (FP) PO SCH (10:19)
[2019-08-05] MEDS: ESCITALOPRAM OXALATE 20 MG TABLET PO SCH (10:20)
--- NOTE | 2019-08-05 10:58 | PN ---
S CIWA - CIWA Score Nausea/Vomitin-No Nausea/No Vomiting Muscle Tremors: 4-Moderate,w/Arms Extend Anxiety: 3 Agitation: 3 Paroxysmal Sweats: 3 Orientation: 0-Oriented Tacttile Disturbances: 0-None Auditory Disturbances: 0-None Visual Disturbances: 0-None Headache: 0-None Present CIWA-Ar Total Score: 13 BHS Progress Note (SOAP) Subjective: sweats shakes body aches interrupted sleep irritable Objective: 08/05/19 10:58 Vital Signs Temperature 96.3 F L 08/05/19 08:50 Pulse Rate 74 08/05/19 08:50 Respiratory Rate 18 08/05/19 08:50 Blood Pressure 140/79 08/05/19 08:50 O2 Sat by Pulse Oximetry (%) 95 08/05/19 05:31 Laboratory Tests 08/04/19 08/04/19 08/04/19 12:00 12:00 12:00 WBC 5.2 RBC 4.28 Hgb 12.0 Hct 38.1 MCV 89.0 MCH 28.0 MCHC 31.5 L RDW 16.8 H Plt Count 234 MPV 8.6 Sodium 140 Potassium 4.1 Chloride 104 Carbon Dioxide 29 Anion Gap 8 BUN 19.0 H Creatinine 1.1 Est GFR (CKD-EPI)AfAm 63.20 Est GFR (CKD-EPI)NonAf 54.53 Random Glucose 110 H Calcium 9.8 Total Bilirubin 0.9 AST 63 H ALT 83 H Alkaline Phosphatase 119 H Total Protein 8.0 Albumin 4.3 Syphilis Serology Non-reactive labs noted aaox3 ambulating no acute distress Assessment: 08/05/19 10:58 withdrawals Plan: continue detox
[2019-08-05] MEDS ORDERED: METHADONE HCL 10 MG TABLET ONE (10:59)
[2019-08-05] MEDS ORDERED: METHADONE HCL 40 MG DISPERSABLE TABLET ONE (10:59)
[2019-08-05] MEDS: THIAMINE HCL 100 MG TABLET (FP) PO SCH (22:28)
[2019-08-05] MEDS: MELATONIN 5 MG TABLETS PO PRN (22:29)
[2019-08-06] MEDS ORDERED: METHADONE HCL 10 MG TABLET ONE (04:15)
[2019-08-06] MEDS ORDERED: METHADONE HCL 40 MG DISPERSABLE TABLET ONE (04:15)
[2019-08-06] MEDS ORDERED: METHADONE HCL 40 MG DISPERSABLE TABLET PO SCH (06:00)
[2019-08-06] MEDS: chlordiazePOXIDE HCL 25 MG CAPSULE PO SCH ×4 (06:22→22:04)
[2019-08-06] MEDS: METHADONE 40 MG, METHADONE 30 MG PO SCH (06:22)
[2019-08-06] MEDS: PRENATAL VITAMINS W/ FOLIC ACID TABLET (FP) PO SCH (10:43)
[2019-08-06] MEDS: NICOTINE 7 MG/24 HOURS TOPICAL PATCH TD SCH (10:43)
[2019-08-06] MEDS: ESCITALOPRAM OXALATE 20 MG TABLET PO SCH (10:43)
--- NOTE | 2019-08-06 12:11 | PN ---
S CIWA - CIWA Score Nausea/Vomitin-No Nausea/No Vomiting Muscle Tremors: 3 Anxiety: 1-Mildly Anxious Agitation: 2 Paroxysmal Sweats: 2 Orientation: 0-Oriented Tacttile Disturbances: 0-None Auditory Disturbances: 0-None Visual Disturbances: 0-None Headache: 0-None Present CIWA-Ar Total Score: 8 BHS Progress Note (SOAP) Subjective: sweats body aches irritable Objective: 08/06/19 12:10 Vital Signs Temperature 97.7 F 08/06/19 08:50 Pulse Rate 71 08/06/19 08:50 Respiratory Rate 18 08/06/19 08:50 Blood Pressure 119/72 08/06/19 08:50 O2 Sat by Pulse Oximetry (%) 99 08/06/19 05:55 Laboratory Tests 08/04/19 08/04/19 08/04/19 12:00 12:00 12:00 WBC 5.2 RBC 4.28 Hgb 12.0 Hct 38.1 MCV 89.0 MCH 28.0 MCHC 31.5 L RDW 16.8 H Plt Count 234 MPV 8.6 Sodium 140 Potassium 4.1 Chloride 104 Carbon Dioxide 29 Anion Gap 8 BUN 19.0 H Creatinine 1.1 Est GFR (CKD-EPI)AfAm 63.20 Est GFR (CKD-EPI)NonAf 54.53 Random Glucose 110 H Calcium 9.8 Total Bilirubin 0.9 AST 63 H ALT 83 H Alkaline Phosphatase 119 H Total Protein 8.0 Albumin 4.3 Syphilis Serology Non-reactive COVID-19 (JANETTE) 08/04/19 12:40 WBC RBC Hgb Hct MCV MCH MCHC RDW Plt Count MPV Sodium Potassium Chloride Carbon Dioxide Anion Gap BUN Creatinine Est GFR (CKD-EPI)AfAm Est GFR (CKD-EPI)NonAf Random Glucose Calcium Total Bilirubin AST ALT Alkaline Phosphatase Total Protein Albumin Syphilis Serology COVID-19 (JANETTE) Not detected labs noted aaox3 ambulating no acute distress Assessment: 08/06/19 12:10 withdrawals Plan: continue detox
[2019-08-06] MEDS: THIAMINE HCL 100 MG TABLET (FP) PO SCH (22:04)
[2019-08-06] MEDS: MELATONIN 5 MG TABLETS PO PRN (22:04)
[2019-08-07] MEDS ORDERED: chlordiazePOXIDE HCL 10 MG CAPSULE PO PRN
[2019-08-07] MEDS ORDERED: METHADONE HCL 10 MG TABLET ONE (03:48)
[2019-08-07] MEDS ORDERED: METHADONE HCL 40 MG DISPERSABLE TABLET ONE (03:48)
[2019-08-07] MEDS: METHADONE 40 MG, METHADONE 30 MG PO SCH (06:05)
[2019-08-07] MEDS: chlordiazePOXIDE HCL 10 MG CAPSULE PO SCH ×4 (06:06→22:03)
[2019-08-07] MEDS: ESCITALOPRAM OXALATE 20 MG TABLET PO SCH (11:00)
[2019-08-07] MEDS: PRENATAL VITAMINS W/ FOLIC ACID TABLET (FP) PO SCH (11:00)
[2019-08-07] MEDS: NICOTINE 7 MG/24 HOURS TOPICAL PATCH TD SCH (11:01)
[2019-08-07] MEDS: MAG HYDROX/AL HYDROX/SIMETH 30 ML UNIT-DOSE CUP PO PRN ×2 (11:17→23:42)
--- NOTE | 2019-08-07 12:07 | PN ---
S CIWA - CIWA Score Nausea/Vomitin-No Nausea/No Vomiting Muscle Tremors: 2 Anxiety: 1-Mildly Anxious Agitation: 2 Paroxysmal Sweats: No Perspiration Orientation: 0-Oriented Tacttile Disturbances: 0-None Auditory Disturbances: 0-None Visual Disturbances: 0-None Headache: 0-None Present CIWA-Ar Total Score: 5 BHS Progress Note (SOAP) Subjective: feeling so much better anxiety Objective: 08/07/19 12:06 Vital Signs Temperature 97.5 F L 08/07/19 09:00 Pulse Rate 73 08/07/19 09:00 Respiratory Rate 17 08/07/19 09:00 Blood Pressure 120/71 08/07/19 09:00 O2 Sat by Pulse Oximetry (%) 96 08/07/19 06:41 aaox3 ambulating no acute distress Assessment: 08/07/19 12:07 mild withdrawals Plan: continue detox
[2019-08-07] MEDS: THIAMINE HCL 100 MG TABLET (FP) PO SCH (22:03)
[2019-08-07] MEDS: hydrOXYzine PAMOATE 25 MG CAPSULE (FP) PO PRN (22:03)
[2019-08-07] MEDS: MELATONIN 5 MG TABLETS PO PRN (22:03)
[2019-08-08] MEDS ORDERED: METHADONE HCL 10 MG TABLET ONE (04:43)
[2019-08-08] MEDS ORDERED: METHADONE HCL 40 MG DISPERSABLE TABLET ONE (04:44)
[2019-08-08] MEDS: METHADONE 40 MG, METHADONE 30 MG PO SCH (05:35)
[2019-08-08] MEDS: chlordiazePOXIDE HCL 10 MG CAPSULE PO SCH ×2 (05:35→17:25)
[2019-08-08] MEDS: PRENATAL VITAMINS W/ FOLIC ACID TABLET (FP) PO SCH (10:23)
[2019-08-08] MEDS: NICOTINE 7 MG/24 HOURS TOPICAL PATCH TD SCH (10:23)
[2019-08-08] MEDS: ESCITALOPRAM OXALATE 20 MG TABLET PO SCH (10:23)
--- NOTE | 2019-08-08 17:37 | PN ---
S CIWA - CIWA Score Nausea/Vomitin-No Nausea/No Vomiting Muscle Tremors: None Anxiety: 0-No Anxiety, at Ease Agitation: 1-Slight > Activity Paroxysmal Sweats: No Perspiration Orientation: 0-Oriented Tacttile Disturbances: 0-None Auditory Disturbances: 0-None Visual Disturbances: 0-None Headache: 0-None Present CIWA-Ar Total Score: 1 BHS Progress Note (SOAP) Subjective: Patient denies current Withdrawal / Detox symptoms and reports that she feels well overall at this time. Objective: Patient A & O X 3, Observed Ambulating on Detox Unit Unassisted. In No Acute Distress. 08/08/19 17:34 Vital Signs Temperature 98.6 F 08/08/19 12:35 Pulse Rate 64 08/08/19 12:35 Respiratory Rate 18 08/08/19 12:35 Blood Pressure 102/63 08/08/19 12:35 O2 Sat by Pulse Oximetry (%) 99 08/08/19 12:35 Laboratory Tests 08/04/19 08/04/19 08/04/19 12:00 12:00 12:00 WBC 5.2 RBC 4.28 Hgb 12.0 Hct 38.1 MCV 89.0 MCH 28.0 MCHC 31.5 L RDW 16.8 H Plt Count 234 MPV 8.6 Sodium 140 Potassium 4.1 Chloride 104 Carbon Dioxide 29 Anion Gap 8 BUN 19.0 H Creatinine 1.1 Est GFR (CKD-EPI)AfAm 63.20 Est GFR (CKD-EPI)NonAf 54.53 Random Glucose 110 H Calcium 9.8 Total Bilirubin 0.9 AST 63 H ALT 83 H Alkaline Phosphatase 119 H Total Protein 8.0 Albumin 4.3 Syphilis Serology Non-reactive COVID-19 (JANETTE) 08/04/19 12:40 WBC RBC Hgb Hct MCV MCH MCHC RDW Plt Count MPV Sodium Potassium Chloride Carbon Dioxide Anion Gap BUN Creatinine Est GFR (CKD-EPI)AfAm Est GFR (CKD-EPI)NonAf Random Glucose Calcium Total Bilirubin AST ALT Alkaline Phosphatase Total Protein Albumin Syphilis Serology COVID-19 (JANETTE) Not detected Lab Results noted. Assessment: 08/08/19 17:34 WITHDRAWAL SYMPTOMS. ELEVATED AST LEVEL ELEVATED ALT LEVEL ELEVATED AP LEVEL 08/08/19 17:35 Plan: Continue Detox. Patient scheduled for D/C from detox unit tomorrow.
[2019-08-08] MEDS: THIAMINE HCL 100 MG TABLET (FP) PO SCH (22:17)
[2019-08-08] MEDS: hydrOXYzine PAMOATE 25 MG CAPSULE (FP) PO PRN (22:17)
[2019-08-08] MEDS: METHOCARBAMOL 500 MG TABLET PO PRN (22:17)
[2019-08-08] MEDS: ALBUTEROL SO4 HFA INHALER IH PRN (22:19)
[2019-08-09] MEDS ORDERED: METHADONE HCL 10 MG TABLET ONE (04:44)
[2019-08-09] MEDS ORDERED: METHADONE HCL 40 MG DISPERSABLE TABLET ONE (04:44)
[2019-08-09] MEDS ORDERED: chlordiazePOXIDE HCL 10 MG CAPSULE PO ONE (05:00)
[2019-08-09] MEDS: METHADONE 40 MG, METHADONE 30 MG PO SCH (05:56)
[2019-08-09 06:23] VITALS: BP 127/94; PULSE 77; TEMP 97.7
--- NOTE | 2019-08-09 12:14 | DS ---
[facility] Detox Discharge Summary Admission Date: 08/04/19 Discharge Date: 08/09/19 - History Present History: Alcohol Dependence, Opioid Dependence Additional Comments: Patient completed detox successfully, stable for discharge, discharged safely. Instructed to follow up with PCP within 1-2 weeks. Pertinent Past History: Asthma HTN HIV Liver cirrhosis Nicotine dependence Alcohol dependence Opioid dependence - Physical Exam Results Vital Signs: Vital Signs Temperature 97.7 F 08/09/19 05:43 Pulse Rate 77 08/09/19 05:43 Respiratory Rate 16 08/09/19 05:43 Blood Pressure 127/94 08/09/19 05:43 O2 Sat by Pulse Oximetry (%) 99 08/09/19 05:43 Pertinent Admission Physical Exam Findings: Withdrawal sxs Laboratory Tests 08/04/19 08/04/19 08/04/19 12:00 12:00 12:00 WBC 5.2 RBC 4.28 Hgb 12.0 Hct 38.1 MCV 89.0 MCH 28.0 MCHC 31.5 L RDW 16.8 H Plt Count 234 MPV 8.6 Sodium 140 Potassium 4.1 Chloride 104 Carbon Dioxide 29 Anion Gap 8 BUN 19.0 H: Creatinine 1.1 Est GFR (CKD-EPI)AfAm 63.20 Est GFR (CKD-EPI)NonAf 54.53 Random Glucose 110 H Calcium 9.8 Total Bilirubin 0.9 AST 63 H ALT 83 H Alkaline Phosphatase 119 H Total Protein 8.0 Albumin 4.3 Syphilis Serology Non-reactive COVID-19 (JANETTE) 08/04/19 12:40 WBC RBC Hgb Hct MCV MCH MCHC RDW Plt Count MPV Sodium Potassium Chloride Carbon Dioxide Anion Gap BUN Creatinine Est GFR (CKD-EPI)AfAm Est GFR (CKD-EPI)NonAf Random Glucose Calcium Total Bilirubin AST ALT Alkaline Phosphatase Total Protein Albumin Syphilis Serology COVID-19 (JANETTE) Not detected Labs reviewed: elevated LFTs noted most likely due to alcoholism - Treatment Hospital Course: Detox Protocol Followed, Detoxed Safely, Responded well, Discharged Condition Good - Medication Discharge Medications: Ambulatory Orders Escitalopram Oxalate [Lexapro -] 20 mg PO DAILY #30 tablet 08/13/18 Albuterol Sulfate Inhaler - [Ventolin HFA Inhaler -] 2 puff IH PRN PRN #1 inhaler 12/05/18 Methadone [Dolophine -] 70 mg PO DAILY 02/02/20 Aspirin [ASA -] 81 mg PO ASDIR 05/10/19 Melatonin 5 mg PO HS 06/29/19 - Diagnosis (1) HTN (hypertension), benign Status: Chronic (2) Alcohol dependence with uncomplicated withdrawal Status: Acute (3) Asthma Status: Chronic Qualifiers: Asthma severity: mild Asthma persistence: intermittent Asthma complication type: uncomplicated Qualified Code(s): J45.20 - Mild intermittent asthma, uncomplicated (4) Bipolar disorder Status: Chronic Qualifiers: Active/Remission status: remission status unspecified Qualified Code(s): F31.9 - Bipolar disorder, unspecified (5) HIV (human immunodeficiency virus infection) Status: Chronic Qualifiers: HIV symptom status: asymptomatic Qualified Code(s): Z21 - Asymptomatic human immunodeficiency virus [HIV] infection status (6) History of depression Status: Chronic (7) Insomnia Status: Chronic Qualifiers: Insomnia type: unspecified Qualified Code(s): G47.00 - Insomnia, unspecified (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
== END 2019-08-09 09:17 | disposition home or self-care (01) | DRG 773 ==
LOC: YASAS 09:41 → Y6N 11:56
PROVIDERS: ADMIT Allergy & Immunology; ATTEND Allergy & Immunology
PROC: HZ2ZZZZ Detoxification Services for Substance Abuse Treatment (ICD-10-PCS; principal; 2019-08-04)
DX: F10.230 Alcohol dependence with withdrawal, uncomplicated (principal); F11.20 Opioid dependence, uncomplicated; F17.210 Nicotine dependence, cigarettes, uncomplicated; F31.9 Bipolar disorder, unspecified; F19.24 Other psychoactive substance dependence with psychoactive substance-induced mood disorder; F19.282 Other psychoactive substance dependence with psychoactive substance-induced sleep disorder; I10 Essential (primary) hypertension; J45.20 Mild intermittent asthma, uncomplicated; G47.00 Insomnia, unspecified; K74.60 Unspecified cirrhosis of liver; R74.0 Nonspecific elevation of levels of transaminase and lactic acid dehydrogenase [LDH]; Z21 Asymptomatic human immunodeficiency virus [HIV] infection status; Z91.14 Patient's other noncompliance with medication regimen; Z91.5 Personal history of self-harm
CPT/HCPCS: 36415; 80053; 85027; 86780; U0003

== ENCOUNTER 2019-09-15 14:36 | Inpatient (IN) | payer OTHER ==
--- NOTE | 2019-09-15 15:03 | BHS.RME ---
Substance Use & Tx History - Substance Use History Alcohol Substance amount: 1 pint vodka Frequency of use: Daily Substance route: Oral Date of Last Use: 09/15/19 Heroin Substance amount: 1 bag Frequency of use: Once a month Substance route: Inhalation (ex: sniffing or snorting) Date of Last Use: 09/12/19 Nicotine Substance amount: 1/2 pack Frequency of use: Daily Substance route: Smoking Date of Last Use: 09/15/19 Physical/Psych/Mental Status - Behavior General Behavior: Increased activity (restlessness, agitation) Eye Contact: Normal - Cooperativeness Cooperativeness: Cooperative - Thinking Thought Processes: Tight, Logical, Goal Directed - Physical Health Problems Is patient presently having any pain?: No Does patient presently have any injuries (include location): No Does patient currently have a fever: No Is patient : No CIWA Nausea/Vomitin Muscle Tremors: 3 Anxiety: 3 Agitation: 3 Paroxysmal Sweats: 1-Minimal Palms Moist Orientation: 0-Oriented Tacttile Disturbances: 0-None Auditory Disturbances: 0-None Visual Disturbances: 0-None Headache: 2-Mild CIWA-Ar Total Score: 14
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
[2019-09-15] MEDS ORDERED: MAGNESIUM CITRATE 300 ML BOTTLE PO PRN (16:00)
[2019-09-15] MEDS ORDERED: ACETAMINOPHEN 325 MG TABLET (FP) PO PRN ×2 (16:00)
[2019-09-15] MEDS ORDERED: IBUPROFEN 400 MG TABLET (FP) PO PRN (16:00)
[2019-09-15] MEDS ORDERED: MAG HYDROX/AL HYDROX/SIMETH 30 ML UNIT-DOSE CUP PO PRN (16:00)
[2019-09-15] MEDS ORDERED: chlordiazePOXIDE HCL 25 MG CAPSULE PO PRN (16:00)
[2019-09-15] MEDS ORDERED: NICOTINE POLACRILEX 2 MG GUM BUC PRN (16:00)
[2019-09-15] MEDS ORDERED: METHOCARBAMOL 500 MG TABLET PO PRN (16:00)
[2019-09-15] MEDS ORDERED: ONDANSETRON *ODT* 4 MG TABLET SL ONE (16:00)
[2019-09-15] MEDS ORDERED: MENTHOL/PHENOL 1 EACH UD MM PRN (16:00)
[2019-09-15 16:01] VITALS: BMI 23.6
[2019-09-15] MEDS ORDERED: ALBUTEROL SO4 HFA INHALER IH PRN (16:03)
[2019-09-15] MEDS ORDERED: ASPIRIN 81 MG CHEWABLE TABLETS PO SCH (16:15)
[2019-09-15] MEDS: PRENATAL VITAMINS W/ FOLIC ACID TABLET (FP) PO SCH (17:34)
[2019-09-15] MEDS: NICOTINE 7 MG/24 HOURS TOPICAL PATCH TD SCH (17:34)
[2019-09-15] MEDS: chlordiazePOXIDE HCL 25 MG CAPSULE PO SCH ×2 (17:35→22:17)
[2019-09-15] MEDS: hydrOXYzine PAMOATE 25 MG CAPSULE (FP) PO SCH ×2 (17:35→22:17)
[2019-09-15] MEDS: THIAMINE HCL 100 MG TABLET (FP) PO SCH (22:17)
[2019-09-15] MEDS: MELATONIN 5 MG TABLETS PO SCH (22:17)
[2019-09-15] MEDS: MAGNESIUM HYDROX 2400MG/30ML ORAL SUSPENSION 30 ML CUP PO PRN (22:18)
[2019-09-16] MEDS: chlordiazePOXIDE HCL 25 MG CAPSULE PO SCH ×4 (05:41→22:17)
[2019-09-16] MEDS: hydrOXYzine PAMOATE 25 MG CAPSULE (FP) PO SCH ×5 (05:42→22:18)
[2019-09-16] MEDS ORDERED: METHADONE HCL 10 MG TABLET PO ONE (09:18)
[2019-09-16] MEDS ORDERED: METHADONE 40 MG, METHADONE 30 MG PO ONE (09:18)
[2019-09-16] MEDS ORDERED: METHADONE HCL 40 MG DISPERSABLE TABLET ONE (09:49)
[2019-09-16] MEDS ORDERED: METHADONE HCL 10 MG TABLET ONE (09:49)
[2019-09-16] MEDS: ASPIRIN 81 MG CHEWABLE TABLETS PO SCH (10:11)
[2019-09-16] MEDS: PRENATAL VITAMINS W/ FOLIC ACID TABLET (FP) PO SCH (10:12)
[2019-09-16] MEDS: NICOTINE 7 MG/24 HOURS TOPICAL PATCH TD SCH (10:12)
[2019-09-16 11:52] LABS: HEMATOCRIT 35.2 % (32.4-45.2); HEMOGLOBIN 11.3 GM/dL (10.7-15.3); MCH 29.3 pg (25.7-33.7); MEAN CELL VOLUME 91.6 fl (80-96); MEAN PLT VOLUME 8.7 fl (7.5-11.1); PLATELET COUNT 163 K/MM3 (134-434); RBC 3.84 M/mm3 (3.60-5.2); RDW 17.8 % (11.6-15.6)
[2019-09-16 12:00] LABS: ALBUMIN 3.5 g/dl (3.4-5.0); CREATININE 0.7 mg/dL (0.55-1.3); POTASSIUM 4.5 mmol/L (3.5-5.1)
[2019-09-16 12:02] LABS: BILIRUBIN,TOTAL 0.4 mg/dL (0.2-1); TOT PROT 6.7 g/dl (6.4-8.2)
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
--- NOTE | 2019-09-16 12:51 | PN ---
S CIWA - CIWA Score Nausea/Vomitin-Mild Nausea/No Vomiting Muscle Tremors: 2 Anxiety: 3 Agitation: 0-Normal Activity Paroxysmal Sweats: 1-Minimal Palms Moist Orientation: 0-Oriented Tacttile Disturbances: 1-Very Mild Itch/Numbness Auditory Disturbances: 0-None Visual Disturbances: 2-Mild Sensitivity Headache: 2-Mild CIWA-Ar Total Score: 12 BHS Progress Note (SOAP) Subjective: 59 years old female admitted on 09/15/19 for alcohol withdrawal sx management treating with librium detox regiment sitting on the edge of the bed eating breakfast irritable agitative at time emotional assurance given Objective: 09/16/19 13:55 Vital Signs - 24 hr 09/15/19 09/15/19 09/15/19 16:00 16:11 16:42 Temperature 96.6 F L 96.6 F L 97.5 F L Pulse Rate 87 87 66 Respiratory 12 12 18 Rate Blood Pressure 125/83 125/83 114/73 O2 Sat by Pulse Oximetry (%) 09/15/19 09/16/19 09/16/19 20:30 06:17 08:40 Temperature 98.0 F 97.8 F 98.6 F Pulse Rate 74 72 73 Respiratory 18 16 16 Rate Blood Pressure 116/73 134/86 110/60 O2 Sat by Pulse 96 96 96 Oximetry (%) 09/16/19 12:37 Temperature 97.8 F Pulse Rate 71 Respiratory 16 Rate Blood Pressure 125/75 O2 Sat by Pulse 96 Oximetry (%) Laboratory Tests 09/16/19 09/16/19 09/16/19 08:00 08:00 08:00 WBC 3.0 L RBC 3.84 Hgb 11.3 Hct 35.2 MCV 91.6 MCH 29.3 MCHC 32.0 RDW 17.8 H Plt Count 163 D MPV 8.7 Sodium 141 Potassium 4.5 Chloride 103 Carbon Dioxide 35 H Anion Gap 3 L BUN 20.0 H Creatinine 0.7 Est GFR (CKD-EPI)AfAm 109.15 Est GFR (CKD-EPI)NonAf 94.17 Random Glucose 85 Calcium 9.0 Total Bilirubin 0.4 AST 55 H ALT 53 Alkaline Phosphatase 94 Total Protein 6.7 Albumin 3.5 Syphilis Serology Non-reactive lab noted Assessment: 09/16/19 13:57 alcohol withdrawal methadone maintenance program Plan: librium regiment received 70mg po of methadone
[2019-09-16] MEDS: MAGNESIUM HYDROX 2400MG/30ML ORAL SUSPENSION 30 ML CUP PO PRN (17:28)
[2019-09-16] MEDS: traZODone HCL 50 MG TABLET (FP) PO SCH (22:18)
[2019-09-16] MEDS: THIAMINE HCL 100 MG TABLET (FP) PO SCH (22:18)
[2019-09-16] MEDS: MELATONIN 5 MG TABLETS PO SCH (22:18)
[2019-09-17] MEDS ORDERED: METHADONE HCL 10 MG TABLET ONE (04:07)
[2019-09-17] MEDS ORDERED: METHADONE HCL 40 MG DISPERSABLE TABLET ONE (04:08)
[2019-09-17] MEDS: chlordiazePOXIDE HCL 25 MG CAPSULE PO SCH ×4 (05:45→22:05)
[2019-09-17] MEDS: hydrOXYzine PAMOATE 25 MG CAPSULE (FP) PO SCH ×5 (05:46→22:05)
[2019-09-17] MEDS: METHADONE 40 MG, METHADONE 30 MG PO SCH (05:46)
[2019-09-17] MEDS ORDERED: METHADONE HCL 10 MG TABLET PO SCH (06:00)
[2019-09-17] MEDS ORDERED: MAGNESIUM CITRATE 300 ML BOTTLE PO ONE (10:05)
--- NOTE | 2019-09-17 10:08 | PN ---
S CIWA - CIWA Score Nausea/Vomitin-Mild Nausea/No Vomiting Muscle Tremors: 3 Anxiety: 3 Agitation: 1-Slight > Activity Paroxysmal Sweats: 2 Orientation: 0-Oriented Tacttile Disturbances: 0-None Auditory Disturbances: 0-None Visual Disturbances: 0-None Headache: 0-None Present CIWA-Ar Total Score: 10 S Progress Note (SOAP) Subjective: 59 years old female admitted on 09/15/19 for alcohol withdrawal sx management treating with librium detox regiment reports trouble defecation received one dose MOM had little success abdomen soft bowel sounds present denies abdominal pain denies vomiting citroma 300ml x 1 Objective: 09/17/19 10:11 Vital Signs - 24 hr 09/16/19 09/16/19 09/16/19 12:37 16:44 20:37 Temperature 97.8 F 97.8 F 97.5 F L Pulse Rate 71 57 L 60 Respiratory 16 18 18 Rate Blood Pressure 125/75 148/85 140/87 O2 Sat by Pulse 96 95 Oximetry (%) 09/17/19 09/17/19 06:20 09:08 Temperature 97.1 F L 97.3 F L Pulse Rate 61 70 Respiratory 18 18 Rate Blood Pressure 142/71 118/81 O2 Sat by Pulse 97 Oximetry (%) Laboratory Tests 09/15/19 09/16/19 09/16/19 16:20 08:00 08:00 WBC 3.0 L RBC 3.84 Hgb 11.3 Hct 35.2 MCV 91.6 MCH 29.3 MCHC 32.0 RDW 17.8 H Plt Count 163 D MPV 8.7 Sodium 141 Potassium 4.5 Chloride 103 Carbon Dioxide 35 H Anion Gap 3 L BUN 20.0 H Creatinine 0.7 Est GFR (CKD-EPI)AfAm 109.15 Est GFR (CKD-EPI)NonAf 94.17 Random Glucose 85 Calcium 9.0 Total Bilirubin 0.4 AST 55 H ALT 53 Alkaline Phosphatase 94 Total Protein 6.7 Albumin 3.5 Syphilis Serology COVID-19 (JANETTE) Not detected 09/16/19 08:00 WBC RBC Hgb Hct MCV MCH MCHC RDW Plt Count MPV Sodium Potassium Chloride Carbon Dioxide Anion Gap BUN Creatinine Est GFR (CKD-EPI)AfAm Est GFR (CKD-EPI)NonAf Random Glucose Calcium Total Bilirubin AST ALT Alkaline Phosphatase Total Protein Albumin Syphilis Serology Non-reactive COVID-19 (JANETTE) lab noted Assessment: 09/17/19 10:12 alcohol withdrawal Plan: librium regiment
[2019-09-17] MEDS: ESCITALOPRAM OXALATE 10 MG TABLET PO SCH (10:19)
[2019-09-17] MEDS: ASPIRIN 81 MG CHEWABLE TABLETS PO SCH (10:19)
[2019-09-17] MEDS: PRENATAL VITAMINS W/ FOLIC ACID TABLET (FP) PO SCH (10:19)
[2019-09-17] MEDS: NICOTINE 7 MG/24 HOURS TOPICAL PATCH TD SCH (10:21)
[2019-09-17] MEDS: THIAMINE HCL 100 MG TABLET (FP) PO SCH (22:05)
[2019-09-17] MEDS: traZODone HCL 50 MG TABLET (FP) PO SCH (22:06)
[2019-09-17] MEDS: MELATONIN 5 MG TABLETS PO SCH (22:06)
[2019-09-18] MEDS ORDERED: chlordiazePOXIDE HCL 10 MG CAPSULE PO PRN
[2019-09-18] MEDS ORDERED: METHADONE HCL 40 MG DISPERSABLE TABLET ONE (04:07)
[2019-09-18] MEDS ORDERED: METHADONE HCL 10 MG TABLET ONE (04:07)
[2019-09-18] MEDS: METHADONE 40 MG, METHADONE 30 MG PO SCH (06:37)
[2019-09-18] MEDS: chlordiazePOXIDE HCL 10 MG CAPSULE PO SCH ×4 (06:38→22:10)
[2019-09-18] MEDS: hydrOXYzine PAMOATE 25 MG CAPSULE (FP) PO SCH ×5 (06:38→22:10)
[2019-09-18] MEDS: ESCITALOPRAM OXALATE 10 MG TABLET PO SCH (10:28)
[2019-09-18] MEDS: PRENATAL VITAMINS W/ FOLIC ACID TABLET (FP) PO SCH (10:28)
[2019-09-18] MEDS: ASPIRIN 81 MG CHEWABLE TABLETS PO SCH (10:28)
[2019-09-18] MEDS: NICOTINE 7 MG/24 HOURS TOPICAL PATCH TD SCH (10:29)
--- NOTE | 2019-09-18 12:04 | PN ---
[facility] CIWA - CIWA Score Nausea/Vomitin-No Nausea/No Vomiting Muscle Tremors: None Anxiety: 1-Mildly Anxious Agitation: 1-Slight > Activity Paroxysmal Sweats: No Perspiration Orientation: 3-Disoriented Date>2 days Tacttile Disturbances: 0-None Auditory Disturbances: 0-None Visual Disturbances: 0-None Headache: 0-None Present CIWA-Ar Total Score: 5 BHS Progress Note (SOAP) Subjective: Pt has mild anxiety Objective: 09/18/19 12:02 PE Gnl: WDWN, in no distress MS: nl mentation, mildly anxious Motor: moves limbs well Coord;nl Gait; steady Laboratory Tests 09/15/19 09/16/19 09/16/19 16:20 08:00 08:00 WBC 3.0 L RBC 3.84 Hgb 11.3 Hct 35.2 MCV 91.6 MCH 29.3 MCHC 32.0 RDW 17.8 H Plt Count 163 D MPV 8.7 Sodium 141 Potassium 4.5 Chloride 103 Carbon Dioxide 35 H Anion Gap 3 L BUN 20.0 H Creatinine 0.7 Est GFR (CKD-EPI)AfAm 109.15 Est GFR (CKD-EPI)NonAf 94.17 Random Glucose 85 Calcium 9.0 Total Bilirubin 0.4 AST 55 H ALT 53 Alkaline Phosphatase 94 Total Protein 6.7 Albumin 3.5 Syphilis Serology COVID-19 (JANETTE) Not detected 09/16/19 08:00 WBC RBC Hgb Hct MCV MCH MCHC RDW Plt Count MPV Sodium Potassium Chloride Carbon Dioxide Anion Gap BUN Creatinine Est GFR (CKD-EPI)AfAm Est GFR (CKD-EPI)NonAf Random Glucose Calcium Total Bilirubin AST ALT Alkaline Phosphatase Total Protein Albumin Syphilis Serology Non-reactive COVID-19 (JANETTE) Home Medication List Medication Instructions Recorded Confirmed Type Methadone [Dolophine -] 70 mg PO DAILY 03/15/19 09/15/19 History Aspirin [ASA -] 81 mg PO ASDIR 05/10/19 09/15/19 History Melatonin 5 mg PO HS 06/29/19 09/15/19 History Active Medications Generic Name Dose Route Start Last Admin Trade Name Freq PRN Reason Stop Dose Admin Acetaminophen 650 mg 09/15/19 16:00 Tylenol - PO Q6H PRN PAIN LEVEL 4 - 6 Acetaminophen 650 mg 09/15/19 16:00 Tylenol - PO Q6H PRN FEVER Al Hydroxide/Mg Hydroxide 30 ml 09/15/19 16:00 Mylanta Oral Suspension - PO Q6H PRN DYSPEPSIA Albuterol Sulfate 2 puff 09/15/19 16:03 Ventolin Hfa Inhaler - IH Q8H PRN ASTHMA Aspirin 81 mg 09/16/19 10:00 09/18/19 10:28 Asa - PO 81 mg DAILY BETSEY Administration Bismuth Subsalicylate 524 mg 09/15/19 16:00 Pepto-Bismol - PO Q1H PRN DIARRHEA Chlordiazepoxide HCl 10 mg 09/18/19 05:00 09/18/19 10:29 Librium - PO 09/18/19 23:01 10 mg [id number] BETSEY Administration Chlordiazepoxide HCl 10 mg 09/19/19 05:00 Librium - PO 09/19/19 17:01 Q12H BETSEY Chlordiazepoxide HCl 10 mg 09/18/19 00:00 Librium - PO 09/19/19 00:00 Q4H PRN WITHDRAWAL(CONT SUBST) Chlordiazepoxide HCl 10 mg 09/20/19 05:00 Librium - PO 09/20/19 05:01 ONCE@0500 ONE Escitalopram Oxalate 10 mg 09/17/19 10:00 09/18/19 10:28 Lexapro - PO 10 mg DAILY BETSEY Administration Eucalyptus/Menthol/Phenol/Sorbitol 1 each 09/15/19 16:00 Cepastat Lozenge - MM 09/21/19 16:01 Q4H PRN SORE THROAT Hydroxyzine Pamoate 25 mg 09/15/19 18:00 09/18/19 10:29 Vistaril - PO 09/21/19 16:01 25 mg Q4HWA BETSYE Administration Ibuprofen 400 mg 09/15/19 16:00 Motrin - PO Q6H PRN PAIN LEVEL 1 - 3 Magnesium Citrate 300 ml 09/15/19 16:00 09/17/19 10:21 Citroma - PO 300 ml Q48H PRN Administration CONSTIPATION Magnesium Hydroxide 30 ml 09/15/19 16:00 09/16/19 17:28 Milk Of Magnesia - PO 30 ml PRN PRN Administration CONSTIPATION Melatonin 5 mg 09/15/19 22:00 08/06/20 22:06 Melatonin PO 5 mg HS BETSEY Administration Methadone HCl 40 mg/ Methadone 70 mg 09/17/19 06:00 09/18/19 06:37 HCl 30 mg PO 09/23/19 05:59 70 mg DAILY@0600 BETSEY Administration Methocarbamol 500 mg 09/15/19 16:00 Robaxin - PO 09/21/19 16:01 Q6H PRN MUSCLE SPASMS Nicotine 7 mg 09/15/19 16:15 09/18/19 10:29 Nicoderm Patch - TD Not Given DAILY BETSEY Nicotine Polacrilex 2 mg 09/15/19 16:00 Nicorette Gum - BUC Q2H PRN NICOTINE REPLACEMENT RX Multivit/Folic Acid/Iron 1 tab 09/15/19 16:15 09/18/19 10:28 Vitamins (Sjr) - PO 1 tab DAILY BETSEY Administration Thiamine HCl 100 mg 09/15/19 22:00 09/17/19 22:05 Vitamin B1 - PO 100 mg HS BETSEY Administration Trazodone HCl 25 mg 09/16/19 22:00 09/17/19 22:06 Desyrel - PO 25 mg HS BETSEY Administration Vital Signs Temperature 97.1 F L 09/18/19 08:38 Pulse Rate 75 09/18/19 08:38 Respiratory Rate 16 09/18/19 08:38 Blood Pressure 107/72 09/18/19 08:38 O2 Sat by Pulse Oximetry (%) 96 09/18/19 08:38 Assessment: 09/18/19 12:03 1. Alcohol use disorder 2. Opioid use disorder, on maintenance therapy Plan: 1. Librium detox, projected completion 09/19 2. continue Methadone 40 mg daily
[2019-09-18] MEDS: BISMUTH SUBSALICYLATE 524 MG/30 ML UD PO PRN (15:19)
[2019-09-18] MEDS: THIAMINE HCL 100 MG TABLET (FP) PO SCH (22:10)
[2019-09-18] MEDS: traZODone HCL 50 MG TABLET (FP) PO SCH (22:11)
[2019-09-18] MEDS: MELATONIN 5 MG TABLETS PO SCH (22:11)
[2019-09-19] MEDS ORDERED: METHADONE HCL 40 MG DISPERSABLE TABLET ONE (04:21)
[2019-09-19] MEDS ORDERED: METHADONE HCL 10 MG TABLET ONE (04:21)
[2019-09-19] MEDS: chlordiazePOXIDE HCL 10 MG CAPSULE PO SCH ×2 (05:35→17:55)
[2019-09-19] MEDS: hydrOXYzine PAMOATE 25 MG CAPSULE (FP) PO SCH ×5 (05:35→22:19)
[2019-09-19] MEDS: METHADONE 40 MG, METHADONE 30 MG PO SCH (05:35)
[2019-09-19] MEDS: PRENATAL VITAMINS W/ FOLIC ACID TABLET (FP) PO SCH (10:27)
[2019-09-19] MEDS: NICOTINE 7 MG/24 HOURS TOPICAL PATCH TD SCH (10:27)
[2019-09-19] MEDS: ASPIRIN 81 MG CHEWABLE TABLETS PO SCH (10:27)
[2019-09-19] MEDS: ESCITALOPRAM OXALATE 10 MG TABLET PO SCH (10:27)
--- NOTE | 2019-09-19 12:55 | PN ---
[facility] CIWA - CIWA Score Nausea/Vomitin-No Nausea/No Vomiting Muscle Tremors: None Anxiety: 2 Agitation: 0-Normal Activity Paroxysmal Sweats: 2 Orientation: 0-Oriented Tacttile Disturbances: 0-None Auditory Disturbances: 0-None Visual Disturbances: 0-None Headache: 0-None Present CIWA-Ar Total Score: 4 BHS Progress Note (SOAP) Subjective: c/o mild withdrawal symptoms. Objective: 09/19/19 12:54 Vital Signs 09/19/19 09/19/19 06:47 08:40 Temperature 97.3 F L 97.3 F L Pulse Rate 81 58 L Respiratory 18 18 Rate Blood Pressure 119/76 102/61 O2 Sat by Pulse 100 100 Oximetry (%) Laboratory Last Values WBC 3.0 K/mm3 (4.0-10.0) L 09/16/19 08:00 RBC 3.84 M/mm3 (3.60-5.2) 09/16/19 08:00 Hgb 11.3 GM/dL (10.7-15.3) 09/16/19 08:00 Hct 35.2 % (32.4-45.2) 09/16/19 08:00 MCV 91.6 fl (80-96) 09/16/19 08:00 MCH 29.3 pg (25.7-33.7) 09/16/19 08:00 MCHC 32.0 g/dl (32.0-36.0) 09/16/19 08:00 RDW 17.8 % (11.6-15.6) H 09/16/19 08:00 Plt Count 163 K/MM3 (134-434) D 09/16/19 08:00 MPV 8.7 fl (7.5-11.1) 09/16/19 08:00 Sodium 141 mmol/L (136-145) 09/16/19 08:00 Potassium 4.5 mmol/L (3.5-5.1) 09/16/19 08:00 Chloride 103 mmol/L (98-107) 09/16/19 08:00 Carbon Dioxide 35 mmol/L (21-32) H 09/16/19 08:00 Anion Gap 3 MMOL/L (8-16) L 09/16/19 08:00 BUN 20.0 mg/dL (7-18) H 09/16/19 08:00 Creatinine 0.7 mg/dL (0.55-1.3) 09/16/19 08:00 Est GFR (CKD-EPI)AfAm 109.15 09/16/19 08:00 Est GFR (CKD-EPI)NonAf 94.17 09/16/19 08:00 Random Glucose 85 mg/dL (74-106) 09/16/19 08:00 Calcium 9.0 mg/dL (8.5-10.1) 09/16/19 08:00 Total Bilirubin 0.4 mg/dL (0.2-1) 09/16/19 08:00 AST 55 U/L (15-37) H 09/16/19 08:00 ALT 53 U/L (13-61) 09/16/19 08:00 Alkaline Phosphatase 94 U/L (45-117) 09/16/19 08:00 Total Protein 6.7 g/dl (6.4-8.2) 09/16/19 08:00 Albumin 3.5 g/dl (3.4-5.0) 09/16/19 08:00 Syphilis Serology Non-reactive (NONREACTIVE) 09/16/19 08:00 COVID-19 (JANETTE) Not detected (Not Detected) 09/15/19 16:20 Labs noted. Assessment: 09/19/19 12:55 AOX3 and in no acute respiratory distress. Full ROM, ambulating in the unit. Mild Withdrawal symptoms. For d/c in AM. Plan: continue detox. D/C in AM.
[2019-09-19] MEDS: BISMUTH SUBSALICYLATE 524 MG/30 ML UD PO PRN (16:50)
[2019-09-19] MEDS: THIAMINE HCL 100 MG TABLET (FP) PO SCH (22:19)
[2019-09-19] MEDS: traZODone HCL 50 MG TABLET (FP) PO SCH (22:19)
[2019-09-19] MEDS: MELATONIN 5 MG TABLETS PO SCH (22:20)
[2019-09-20] MEDS ORDERED: METHADONE HCL 40 MG DISPERSABLE TABLET ONE (03:59)
[2019-09-20] MEDS ORDERED: METHADONE HCL 10 MG TABLET ONE (03:59)
[2019-09-20] MEDS ORDERED: chlordiazePOXIDE HCL 10 MG CAPSULE PO ONE (05:00)
[2019-09-20] MEDS: METHADONE 40 MG, METHADONE 30 MG PO SCH (05:35)
[2019-09-20] MEDS: hydrOXYzine PAMOATE 25 MG CAPSULE (FP) PO SCH (05:36)
--- NOTE | 2019-09-20 08:22 | DS ---
[facility] Detox Discharge Summary Admission Date: 09/15/19 Discharge Date: 09/20/19 - History Present History: Alcohol Dependence, MMTP Additional Comments: 59 years old female admitted on 09/15/19 for alcohol withdrawal sx management treated with librium detox regiment seen by psychiatrist castro servin ms roberts has completed the librium regiment and is tolerated well alert oriented x 3 speech clearly coherently ambulating steady gaits General Appearance: Yes: Alcohol on Breath, Intoxicated, Thin, Tremorous, Irritable, Sweating, Anxious HEENTM: Yes: EOMI, Hearing grossly Normal, Normal ENT Inspection, Normocephalic, Normal Voice, [place], Pharynx Normal, Tm's normal Respiratory: Yes: Chest Non-Tender, Lungs Clear, Normal Breath Sounds, No Respiratory Distress, No Accessory Muscle Use Neck: Yes: No masses,lesions,Nodules, Supple, Trachea in good position Breast: Yes: Breast Exam Deferred Cardiology: Yes: Regular Rhythm, Regular Rate, S1, S2 Abdominal: Yes: Normal Bowel Sounds, Non Tender, Flat, Soft Genitourinary: Yes: Within Normal Limits Back: Yes: Normal Inspection Musculoskeletal: Yes: full range of Motion, Gait Steady, Pelvis Stable Extremities: Yes: Normal Capillary Refill, Normal Inspection, Normal Range of Motion, Non-Tender 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: Yes: visitor services information assistant II-XII NML intact, Fully Oriented, Alert, Motor Strength 5/5, Normal Mood/Affect, Normal Response Integumentary: Yes: Normal Color, Dry, Warm Lymphatic: Yes: Within Normal Limits Pertinent Past History: time for discharge 33 minutes - Physical Exam Results Vital Signs: Vital Signs Temperature 96.6 F L 09/20/19 05:33 Pulse Rate 64 09/20/19 05:33 Respiratory Rate 16 09/20/19 05:33 Blood Pressure 105/71 09/20/19 05:33 O2 Sat by Pulse Oximetry (%) 96 09/20/19 05:33 Pertinent Admission Physical Exam Findings: alcohol withdrawal Laboratory Tests 09/15/19 09/16/19 09/16/19 16:20 08:00 08:00 WBC 3.0 L RBC 3.84 Hgb 11.3 Hct 35.2 MCV 91.6 MCH 29.3 MCHC 32.0 RDW 17.8 H Plt Count 163 D MPV 8.7 Sodium 141 Potassium 4.5 Chloride 103 Carbon Dioxide 35 H Anion Gap 3 L BUN 20.0 H Creatinine 0.7 Est GFR (CKD-EPI)AfAm 109.15 Est GFR (CKD-EPI)NonAf 94.17 Random Glucose 85 Calcium 9.0 Total Bilirubin 0.4 AST 55 H ALT 53 Alkaline Phosphatase 94 Total Protein 6.7 Albumin 3.5 Syphilis Serology COVID-19 (JANETTE) Not detected 09/16/19 08:00 WBC RBC Hgb Hct MCV MCH MCHC RDW Plt Count MPV Sodium Potassium Chloride Carbon Dioxide Anion Gap BUN Creatinine Est GFR (CKD-EPI)AfAm Est GFR (CKD-EPI)NonAf Random Glucose Calcium Total Bilirubin AST ALT Alkaline Phosphatase Total Protein Albumin Syphilis Serology Non-reactive COVID-19 (JANETTE) long history of hiv with low wbc ms roberts will return to methadone program for abnormal lab follow up - Treatment Hospital Course: Detox Protocol Followed, Detoxed Safely, Responded well, Discharged Condition Good, Rehab Referral Accepted Patient has Accepted a Rehab Referral to: [facility] - Medication Discharge Medications: Ambulatory Orders Escitalopram Oxalate [Lexapro -] 20 mg PO DAILY #30 tablet 08/13/18 Albuterol Sulfate Inhaler - [Ventolin HFA Inhaler -] 2 puff IH PRN PRN #1 inhaler 12/05/18 Methadone [Dolophine -] 70 mg PO DAILY 03/15/19 Aspirin [ASA -] 81 mg PO ASDIR 05/10/19 Melatonin 5 mg PO HS 06/29/19 - Diagnosis (1) HIV (human immunodeficiency virus infection) Status: Chronic Qualifiers: HIV symptom status: asymptomatic (2) Methadone maintenance therapy patient Status: Chronic (3) Substance induced mood disorder Status: Suspected (4) Asthma Status: Chronic Qualifiers: Asthma severity: mild Asthma persistence: intermittent Asthma complication type: with status asthmaticus Qualified Code(s): J45.22 - Mild intermittent asthma with status asthmaticus (5) Nicotine dependence Status: Acute Qualifiers: Nicotine product type: cigarettes Substance use status: in withdrawal Qualified Code(s): F17.213 - Nicotine dependence, cigarettes, with withdrawal (6) Alcohol dependence with uncomplicated withdrawal Status: Acute (7) Substance induced mood disorder Status: Suspected (8) Substance induced mood disorder Status: Suspected (9) HTN (hypertension), benign Status: Chronic - AMA Did Patient Leave Against Medical Advice: No CIWA Score - CIWA Score Nausea/Vomitin-No Nausea/No Vomiting Muscle Tremors: None Anxiety: 1-Mildly Anxious Agitation: 0-Normal Activity Paroxysmal Sweats: 1-Minimal Palms Moist Orientation: 0-Oriented Tacttile Disturbances: 0-None Auditory Disturbances: 0-None Visual Disturbances: 0-None Headache: 0-None Present CIWA-Ar Total Score: 2
[2019-09-20 09:19] VITALS: BP 97/65; PULSE 62; TEMP 97.3
== END 2019-09-20 09:04 | disposition home or self-care (01) | DRG 773 ==
LOC: YASAS 14:36 → Y3N 16:16
PROVIDERS: ADMIT Allergy & Immunology; ATTEND Allergy & Immunology
PROC: HZ2ZZZZ Detoxification Services for Substance Abuse Treatment (ICD-10-PCS; principal; 2019-09-15)
DX: F10.230 Alcohol dependence with withdrawal, uncomplicated (principal); F10.24 Alcohol dependence with alcohol-induced mood disorder; F11.20 Opioid dependence, uncomplicated; F17.213 Nicotine dependence, cigarettes, with withdrawal; F19.24 Other psychoactive substance dependence with psychoactive substance-induced mood disorder; F32.9 Major depressive disorder, single episode, unspecified; I10 Essential (primary) hypertension; Z21 Asymptomatic human immunodeficiency virus [HIV] infection status; J45.20 Mild intermittent asthma, uncomplicated; K70.9 Alcoholic liver disease, unspecified
CPT/HCPCS: 36415; 80053; 85027; 86780; Q0162; U0003

== ENCOUNTER 2019-10-15 13:38 | Inpatient (IN) | payer OTHER ==
--- NOTE | 2019-10-15 14:17 | BHS.RME ---
Substance Use & Tx History - Substance Use History Alcohol Substance amount: 1 pint vodka Frequency of use: Daily Substance route: Oral Date of Last Use: 10/15/19 Heroin Substance amount: 1 bag Frequency of use: Once a month Substance route: Inhalation (ex: sniffing or snorting) Date of Last Use: 10/14/19 Nicotine Substance amount: 1/2 pack Frequency of use: Daily Substance route: Smoking Date of Last Use: 10/15/19 Physical/Psych/Mental Status - Behavior General Behavior: Increased activity (restlessness, agitation) Eye Contact: Normal - Cooperativeness Cooperativeness: Cooperative - Thinking Thought Processes: Tight, Logical, Goal Directed - Physical Health Problems Is patient presently having any pain?: No Does patient presently have any injuries (include location): No Does patient currently have a fever: No Is patient : No CIWA Nausea/Vomitin-Mild Nausea/No Vomiting Muscle Tremors: 3 Anxiety: 3 Agitation: 3 Paroxysmal Sweats: 3 Orientation: 1-Uncertain about Date Tacttile Disturbances: 0-None Auditory Disturbances: 0-None Visual Disturbances: 4-Moderate Hallucinations Headache: 1-Very Mild CIWA-Ar Total Score: 19
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
[2019-10-15 15:30] VITALS: BMI 23.0
[2019-10-15] MEDS ORDERED: MAG HYDROX/AL HYDROX/SIMETH 30 ML UNIT-DOSE CUP PO PRN (15:30)
[2019-10-15] MEDS ORDERED: METHOCARBAMOL 500 MG TABLET PO PRN (15:30)
[2019-10-15] MEDS ORDERED: MAGNESIUM CITRATE 300 ML BOTTLE PO PRN (15:30)
[2019-10-15] MEDS ORDERED: chlordiazePOXIDE HCL 25 MG CAPSULE PO PRN (15:30)
[2019-10-15] MEDS ORDERED: MENTHOL/PHENOL 1 EACH UD MM PRN (15:30)
[2019-10-15] MEDS ORDERED: ACETAMINOPHEN 325 MG TABLET (FP) PO PRN (15:30)
[2019-10-15] MEDS ORDERED: NICOTINE POLACRILEX 2 MG GUM BUC PRN (15:30)
[2019-10-15] MEDS ORDERED: MAGNESIUM HYDROX 2400MG/30ML ORAL SUSPENSION 30 ML CUP PO PRN (15:30)
[2019-10-15] MEDS ORDERED: IBUPROFEN 400 MG TABLET (FP) PO PRN (15:30)
[2019-10-15] MEDS ORDERED: BISMUTH SUBSALICYLATE 524 MG/30 ML UD PO PRN (15:30)
[2019-10-15] MEDS ORDERED: ALBUTEROL SO4 HFA INHALER IH PRN (15:32)
[2019-10-15] MEDS ORDERED: ONDANSETRON *ODT* 4 MG TABLET SL ONE (16:15)
[2019-10-15] MEDS ORDERED: MASKS NR ONE (16:56)
[2019-10-15 17:08] LABS: HEMATOCRIT 35.3 % (32.4-45.2); HEMOGLOBIN 11.8 GM/dL (10.7-15.3); MCH 29.6 pg (25.7-33.7); MCHC 33.4 g/dl (32.0-36.0); MEAN CELL VOLUME 88.6 fl (80-96); MEAN PLT VOLUME 8.5 fl (7.5-11.1); PLATELET COUNT 275 K/MM3 (134-434); RBC 3.98 M/mm3 (3.60-5.2); RDW 16.2 % (11.6-15.6); WHITE BLOOD COUNT 4.8 K/mm3 (4.0-10.0)
[2019-10-15 17:25] LABS: BILIRUBIN,TOTAL 0.2 mg/dL (0.2-1); BLOOD UREA NITROGEN 16.1 mg/dL (7-18); CALCIUM 9.3 mg/dL (8.5-10.1); CREATININE 1.2 mg/dL (0.55-1.3); POTASSIUM 4.2 mmol/L (3.5-5.1); TOT PROT 8.3 g/dl (6.4-8.2)
[2019-10-15] MEDS: ASPIRIN 81 MG CHEWABLE TABLETS PO SCH (17:55)
[2019-10-15] MEDS: chlordiazePOXIDE HCL 25 MG CAPSULE PO SCH ×2 (17:55→22:35)
[2019-10-15] MEDS: PRENATAL VITAMINS W/ FOLIC ACID TABLET (FP) PO SCH (17:56)
[2019-10-15] MEDS: hydrOXYzine PAMOATE 25 MG CAPSULE (FP) PO SCH ×2 (17:57→22:35)
[2019-10-15] MEDS: NICOTINE 7 MG/24 HOURS TOPICAL PATCH TD SCH (17:57)
[2019-10-15] MEDS: MELATONIN 5 MG TABLETS PO SCH (22:35)
[2019-10-15] MEDS: BACITRACIN 0.9 GM PACKET TP SCH (22:35)
[2019-10-15] MEDS: THIAMINE HCL 100 MG TABLET (FP) PO SCH (22:35)
[2019-10-16] MEDS: chlordiazePOXIDE HCL 25 MG CAPSULE PO SCH ×4 (05:36→22:23)
[2019-10-16] MEDS: hydrOXYzine PAMOATE 25 MG CAPSULE (FP) PO SCH (05:36)
[2019-10-16] MEDS: ACETAMINOPHEN 325 MG TABLET (FP) PO PRN (06:39)
[2019-10-16] MEDS ORDERED: hydrOXYzine PAMOATE 25 MG CAPSULE (FP) PO PRN (08:38)
[2019-10-16] MEDS ORDERED: METHADONE HCL 10 MG TABLET PO ONE (08:39)
[2019-10-16] MEDS ORDERED: METHADONE HCL 40 MG DISPERSABLE TABLET PO SCH (10:00)
[2019-10-16] MEDS: ASPIRIN 81 MG CHEWABLE TABLETS PO SCH (11:33)
[2019-10-16] MEDS: BACITRACIN 0.9 GM PACKET TP SCH ×2 (11:33→22:23)
[2019-10-16] MEDS: NICOTINE 7 MG/24 HOURS TOPICAL PATCH TD SCH (11:34)
[2019-10-16] MEDS: PRENATAL VITAMINS W/ FOLIC ACID TABLET (FP) PO SCH (11:34)
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
--- NOTE | 2019-10-16 12:30 | PN ---
S CIWA - CIWA Score Nausea/Vomitin-No Nausea/No Vomiting Muscle Tremors: 3 Anxiety: 3 Agitation: 3 Paroxysmal Sweats: 3 Orientation: 0-Oriented Tacttile Disturbances: 0-None Auditory Disturbances: 0-None Visual Disturbances: 0-None Headache: 0-None Present CIWA-Ar Total Score: 12 S Progress Note (SOAP) Subjective: sweats chills interrupted sleep tired agitation Objective: 10/16/19 12:30 Vital Signs Temperature 98.4 F 10/16/19 08:54 Pulse Rate 73 10/16/19 08:54 Respiratory Rate 16 10/16/19 08:54 Blood Pressure 103/71 10/16/19 08:54 O2 Sat by Pulse Oximetry (%) 93 L 10/16/19 07:06 Laboratory Tests 10/15/19 10/15/19 10/15/19 15:15 15:15 15:15 WBC 4.8 RBC 3.98 Hgb 11.8 Hct 35.3 MCV 88.6 MCH 29.6 MCHC 33.4 RDW 16.2 H Plt Count 275 D MPV 8.5 Sodium 142 Potassium 4.2 Chloride 106 Carbon Dioxide 31 Anion Gap 6 L BUN 16.1 Creatinine 1.2 Est GFR (CKD-EPI)AfAm 56.89 Est GFR (CKD-EPI)NonAf 49.08 Random Glucose 88 Calcium 9.3 Total Bilirubin 0.2 AST 53 H ALT 55 Alkaline Phosphatase 128 H Total Protein 8.3 H Albumin 4.0 Syphilis Serology Non-reactive labs noted aaox3 ambulating no acute distress Assessment: 10/16/19 12:30 withdrawals Plan: continue detox
[2019-10-16] MEDS: ESCITALOPRAM OXALATE 10 MG TABLET PO SCH (13:06)
[2019-10-16] MEDS: THIAMINE HCL 100 MG TABLET (FP) PO SCH (22:24)
[2019-10-16] MEDS: MELATONIN 5 MG TABLETS PO SCH (22:24)
[2019-10-16] MEDS: traZODone HCL 50 MG TABLET (FP) PO SCH (22:24)
[2019-10-17] MEDS ORDERED: METHADONE HCL 10 MG TABLET ONE (04:28)
[2019-10-17] MEDS ORDERED: METHADONE HCL 40 MG DISPERSABLE TABLET ONE (04:29)
[2019-10-17] MEDS: METHADONE 40 MG, METHADONE 30 MG PO SCH (05:25)
[2019-10-17] MEDS: chlordiazePOXIDE HCL 25 MG CAPSULE PO SCH ×4 (05:25→22:37)
[2019-10-17] MEDS ORDERED: METHADONE HCL 10 MG TABLET PO SCH (06:00)
[2019-10-17] MEDS: ASPIRIN 81 MG CHEWABLE TABLETS PO SCH (10:32)
[2019-10-17] MEDS: ESCITALOPRAM OXALATE 10 MG TABLET PO SCH (10:33)
[2019-10-17] MEDS: PRENATAL VITAMINS W/ FOLIC ACID TABLET (FP) PO SCH (10:33)
[2019-10-17] MEDS: NICOTINE 7 MG/24 HOURS TOPICAL PATCH TD SCH (10:33)
[2019-10-17] MEDS: BACITRACIN 0.9 GM PACKET TP SCH (10:33)
--- NOTE | 2019-10-17 13:37 | PN ---
[facility] CIWA - CIWA Score Nausea/Vomitin-No Nausea/No Vomiting Muscle Tremors: 3 Anxiety: 3 Agitation: 2 Paroxysmal Sweats: 2 Orientation: 0-Oriented Tacttile Disturbances: 0-None Auditory Disturbances: 0-None Visual Disturbances: 0-None Headache: 0-None Present CIWA-Ar Total Score: 10 S Progress Note (SOAP) Subjective: Complaints of sweats, anxiety, tremors and agitation. Objective: 10/17/19 13:35 Vital Signs 10/17/19 09:29 Temperature 97.5 F L Pulse Rate 63 Respiratory 20 Rate Blood Pressure 119/71 O2 Sat by Pulse 98 Oximetry (%) Laboratory Last Values WBC 4.8 K/mm3 (4.0-10.0) 10/15/19 15:15 RBC 3.98 M/mm3 (3.60-5.2) 10/15/19 15:15 Hgb 11.8 GM/dL (10.7-15.3) 10/15/19 15:15 Hct 35.3 % (32.4-45.2) 10/15/19 15:15 MCV 88.6 fl (80-96) 10/15/19 15:15 MCH 29.6 pg (25.7-33.7) 10/15/19 15:15 MCHC 33.4 g/dl (32.0-36.0) 10/15/19 15:15 RDW 16.2 % (11.6-15.6) H 10/15/19 15:15 Plt Count 275 K/MM3 (134-434) D 10/15/19 15:15 MPV 8.5 fl (7.5-11.1) 10/15/19 15:15 Sodium 142 mmol/L (136-145) 10/15/19 15:15 Potassium 4.2 mmol/L (3.5-5.1) 10/15/19 15:15 Chloride 106 mmol/L (98-107) 10/15/19 15:15 Carbon Dioxide 31 mmol/L (21-32) 10/15/19 15:15 Anion Gap 6 MMOL/L (8-16) L 10/15/19 15:15 BUN 16.1 mg/dL (7-18) 10/15/19 15:15 Creatinine 1.2 mg/dL (0.55-1.3) 10/15/19 15:15 Est GFR (CKD-EPI)AfAm 56.89 10/15/19 15:15 Est GFR (CKD-EPI)NonAf 49.08 10/15/19 15:15 Random Glucose 88 mg/dL (74-106) 10/15/19 15:15 Calcium 9.3 mg/dL (8.5-10.1) 10/15/19 15:15 Total Bilirubin 0.2 mg/dL (0.2-1) 10/15/19 15:15 AST 53 U/L (15-37) H 10/15/19 15:15 ALT 55 U/L (13-61) 10/15/19 15:15 Alkaline Phosphatase 128 U/L (45-117) H 10/15/19 15:15 Total Protein 8.3 g/dl (6.4-8.2) H 10/15/19 15:15 Albumin 4.0 g/dl (3.4-5.0) 10/15/19 15:15 Syphilis Serology Non-reactive (NONREACTIVE) 10/15/19 15:15 COVID-19 (JANETTE) Not detected (Not Detected) 10/15/19 16:10 Labs noted. Assessment: 10/17/19 13:36 Alert and oriented x 3, in no acute respiratory distress. Full ROM, ambulating in unit without assistance. Skin warm to touch without any lesions. Withdrawal symptoms. Plan: Continue detox protocol. Continue MMTP dosage.
[2019-10-17] MEDS: THIAMINE HCL 100 MG TABLET (FP) PO SCH (22:37)
[2019-10-17] MEDS: MELATONIN 5 MG TABLETS PO SCH (22:37)
[2019-10-17] MEDS: traZODone HCL 50 MG TABLET (FP) PO SCH (22:37)
[2019-10-17] MEDS: ACETAMINOPHEN 325 MG TABLET (FP) PO PRN (22:40)
[2019-10-18] MEDS ORDERED: chlordiazePOXIDE HCL 10 MG CAPSULE PO PRN
[2019-10-18] MEDS: BACITRACIN 0.9 GM PACKET TP SCH ×3 (00:13→22:16)
[2019-10-18] MEDS ORDERED: METHADONE HCL 10 MG TABLET ONE (03:31)
[2019-10-18] MEDS ORDERED: METHADONE HCL 40 MG DISPERSABLE TABLET ONE (03:31)
[2019-10-18] MEDS: chlordiazePOXIDE HCL 10 MG CAPSULE PO SCH ×4 (05:59→22:15)
[2019-10-18] MEDS: METHADONE 40 MG, METHADONE 30 MG PO SCH (05:59)
[2019-10-18] MEDS: NICOTINE 7 MG/24 HOURS TOPICAL PATCH TD SCH (10:48)
[2019-10-18] MEDS: ASPIRIN 81 MG CHEWABLE TABLETS PO SCH (10:48)
[2019-10-18] MEDS: ESCITALOPRAM OXALATE 10 MG TABLET PO SCH (10:48)
[2019-10-18] MEDS: PRENATAL VITAMINS W/ FOLIC ACID TABLET (FP) PO SCH (10:48)
--- NOTE | 2019-10-18 12:35 | PN ---
S CIWA - CIWA Score Nausea/Vomitin-No Nausea/No Vomiting Muscle Tremors: 2 Anxiety: 2 Agitation: 2 Paroxysmal Sweats: 2 Orientation: 0-Oriented Tacttile Disturbances: 0-None Auditory Disturbances: 0-None Visual Disturbances: 0-None Headache: 0-None Present CIWA-Ar Total Score: 8 BHS Progress Note (SOAP) Subjective: C/O sweats, agitation,tremors, and anxiety. Objective: 10/18/19 12:34 Vital Signs 10/18/19 10/18/19 05:58 09:08 Temperature 97.1 F L 97.1 F L Pulse Rate 68 64 Respiratory 16 64 H Rate Blood Pressure 137/82 126/77 O2 Sat by Pulse 96 97 Oximetry (%) Laboratory Last Values WBC 4.8 K/mm3 (4.0-10.0) 10/15/19 15:15 RBC 3.98 M/mm3 (3.60-5.2) 10/15/19 15:15 Hgb 11.8 GM/dL (10.7-15.3) 10/15/19 15:15 Hct 35.3 % (32.4-45.2) 10/15/19 15:15 MCV 88.6 fl (80-96) 10/15/19 15:15 MCH 29.6 pg (25.7-33.7) 10/15/19 15:15 MCHC 33.4 g/dl (32.0-36.0) 10/15/19 15:15 RDW 16.2 % (11.6-15.6) H 10/15/19 15:15 Plt Count 275 K/MM3 (134-434) D 10/15/19 15:15 MPV 8.5 fl (7.5-11.1) 10/15/19 15:15 Sodium 142 mmol/L (136-145) 10/15/19 15:15 Potassium 4.2 mmol/L (3.5-5.1) 10/15/19 15:15 Chloride 106 mmol/L (98-107) 10/15/19 15:15 Carbon Dioxide 31 mmol/L (21-32) 10/15/19 15:15 Anion Gap 6 MMOL/L (8-16) L 10/15/19 15:15 BUN 16.1 mg/dL (7-18) 10/15/19 15:15 Creatinine 1.2 mg/dL (0.55-1.3) 10/15/19 15:15 Est GFR (CKD-EPI)AfAm 56.89 10/15/19 15:15 Est GFR (CKD-EPI)NonAf 49.08 10/15/19 15:15 Random Glucose 88 mg/dL (74-106) 10/15/19 15:15 Calcium 9.3 mg/dL (8.5-10.1) 10/15/19 15:15 Total Bilirubin 0.2 mg/dL (0.2-1) 10/15/19 15:15 AST 53 U/L (15-37) H 10/15/19 15:15 ALT 55 U/L (13-61) 10/15/19 15:15 Alkaline Phosphatase 128 U/L (45-117) H 10/15/19 15:15 Total Protein 8.3 g/dl (6.4-8.2) H 10/15/19 15:15 Albumin 4.0 g/dl (3.4-5.0) 10/15/19 15:15 Syphilis Serology Non-reactive (NONREACTIVE) 10/15/19 15:15 COVID-19 (JANETTE) Not detected (Not Detected) 10/15/19 16:10 Labs noted. Assessment: 10/18/19 12:34 Alert and oriented x 3, in no acute respiratory distress. Full ROM, ambulatory in unit without any assistance. Skin warm to touch without any lesions. Withdrawal symptoms. Plan: Continue detox protocol.
[2019-10-18] MEDS: THIAMINE HCL 100 MG TABLET (FP) PO SCH (22:15)
[2019-10-18] MEDS: MELATONIN 5 MG TABLETS PO SCH (22:15)
[2019-10-18] MEDS: traZODone HCL 50 MG TABLET (FP) PO SCH (22:16)
[2019-10-19] MEDS ORDERED: METHADONE HCL 40 MG DISPERSABLE TABLET ONE (04:11)
[2019-10-19] MEDS ORDERED: METHADONE HCL 10 MG TABLET ONE (04:11)
[2019-10-19] MEDS ORDERED: chlordiazePOXIDE HCL 10 MG CAPSULE PO SCH (05:00)
[2019-10-19] MEDS: METHADONE 40 MG, METHADONE 30 MG PO SCH (05:38)
[2019-10-19 09:31] VITALS: TEMP 98.1
--- NOTE | 2019-10-19 09:54 | PN ---
[facility] Progress Note Note: Patient is scheduled for discharge tomorrow. Scripts for 30 days supply of medications(Lexapro 10 mg/day, Trazadone 50 mg/hs) will be electronically transmitted to [facility], [address] [place] [id number]
[2019-10-19] MEDS: PRENATAL VITAMINS W/ FOLIC ACID TABLET (FP) PO SCH (09:56)
[2019-10-19] MEDS: BACITRACIN 0.9 GM PACKET TP SCH (09:56)
[2019-10-19] MEDS: ESCITALOPRAM OXALATE 10 MG TABLET PO SCH (09:56)
[2019-10-19] MEDS: ASPIRIN 81 MG CHEWABLE TABLETS PO SCH (09:56)
--- NOTE | 2019-10-19 09:56 | PN ---
[facility] CIWA - CIWA Score Nausea/Vomitin-No Nausea/No Vomiting Muscle Tremors: None Anxiety: 2 Agitation: 0-Normal Activity Paroxysmal Sweats: 2 Orientation: 0-Oriented Tacttile Disturbances: 0-None Auditory Disturbances: 0-None Visual Disturbances: 0-None Headache: 0-None Present CIWA-Ar Total Score: 4 BHS Progress Note (SOAP) Subjective: c/o mild withdrawal symptoms. Objective: 10/19/19 09:55 Vital Signs 10/19/19 10/19/19 05:47 08:21 Temperature 97.7 F 98.1 F Pulse Rate 64 78 Respiratory 18 16 Rate Blood Pressure 140/90 143/75 O2 Sat by Pulse 97 Oximetry (%) Laboratory Last Values WBC 4.8 K/mm3 (4.0-10.0) 10/15/19 15:15 RBC 3.98 M/mm3 (3.60-5.2) 10/15/19 15:15 Hgb 11.8 GM/dL (10.7-15.3) 10/15/19 15:15 Hct 35.3 % (32.4-45.2) 10/15/19 15:15 MCV 88.6 fl (80-96) 10/15/19 15:15 MCH 29.6 pg (25.7-33.7) 10/15/19 15:15 MCHC 33.4 g/dl (32.0-36.0) 10/15/19 15:15 RDW 16.2 % (11.6-15.6) H 10/15/19 15:15 Plt Count 275 K/MM3 (134-434) D 10/15/19 15:15 MPV 8.5 fl (7.5-11.1) 10/15/19 15:15 Sodium 142 mmol/L (136-145) 10/15/19 15:15 Potassium 4.2 mmol/L (3.5-5.1) 10/15/19 15:15 Chloride 106 mmol/L (98-107) 10/15/19 15:15 Carbon Dioxide 31 mmol/L (21-32) 10/15/19 15:15 Anion Gap 6 MMOL/L (8-16) L 10/15/19 15:15 BUN 16.1 mg/dL (7-18) 10/15/19 15:15 Creatinine 1.2 mg/dL (0.55-1.3) 10/15/19 15:15 Est GFR (CKD-EPI)AfAm 56.89 10/15/19 15:15 Est GFR (CKD-EPI)NonAf 49.08 10/15/19 15:15 Random Glucose 88 mg/dL (74-106) 10/15/19 15:15 Calcium 9.3 mg/dL (8.5-10.1) 10/15/19 15:15 Total Bilirubin 0.2 mg/dL (0.2-1) 10/15/19 15:15 AST 53 U/L (15-37) H 10/15/19 15:15 ALT 55 U/L (13-61) 10/15/19 15:15 Alkaline Phosphatase 128 U/L (45-117) H 10/15/19 15:15 Total Protein 8.3 g/dl (6.4-8.2) H 10/15/19 15:15 Albumin 4.0 g/dl (3.4-5.0) 10/15/19 15:15 Syphilis Serology Non-reactive (NONREACTIVE) 10/15/19 15:15 COVID-19 (JANETTE) Not detected (Not Detected) 10/15/19 16:10 Labs noted. Assessment: 10/19/19 09:55 AOX3, in no acute respiratory distress. Full ROM, ambulating in the unit. Mild Withdrawal symptoms. For d/c tomorrow. Plan: Continue detox. D/C in AM.
[2019-10-19] MEDS: NICOTINE 7 MG/24 HOURS TOPICAL PATCH TD SCH (09:57)
--- NOTE | 2019-10-19 13:31 | DS ---
[facility] Detox Discharge Summary Admission Date: 10/15/19 Discharge Date: 10/19/19 - History Present History: Alcohol Dependence, Opioid Dependence, MMTP Additional Comments: Pt is medically cleared and discharged today. Pt completed the detox protocol. Pt is encouraged to follow-up with an outpatient CD program and also to follow- up with her pmd which she verbalized understanding. Pt is AOX3, in no acute respiratory distress, Full ROM, and ambulatory. Pertinent Past History: h/o alcohol and heroin use disorder. - Physical Exam Results Vital Signs: Vital Signs Temperature 98.1 F 10/19/19 08:21 Pulse Rate 78 10/19/19 08:21 Respiratory Rate 16 10/19/19 08:21 Blood Pressure 143/75 10/19/19 08:21 O2 Sat by Pulse Oximetry (%) 97 10/19/19 05:47 Vital Signs 10/19/19 10/19/19 05:47 08:21 Temperature 97.7 F 98.1 F Pulse Rate 64 78 Respiratory 18 16 Rate Blood Pressure 140/90 143/75 O2 Sat by Pulse 97 Oximetry (%) Laboratory Last Values WBC 4.8 K/mm3 (4.0-10.0) 10/15/19 15:15 RBC 3.98 M/mm3 (3.60-5.2) 10/15/19 15:15 Hgb 11.8 GM/dL (10.7-15.3) 10/15/19 15:15 Hct 35.3 % (32.4-45.2) 10/15/19 15:15 MCV 88.6 fl (80-96) 10/15/19 15:15 MCH 29.6 pg (25.7-33.7) 10/15/19 15:15 MCHC 33.4 g/dl (32.0-36.0) 10/15/19 15:15 RDW 16.2 % (11.6-15.6) H 10/15/19 15:15 Plt Count 275 K/MM3 (134-434) D 10/15/19 15:15 MPV 8.5 fl (7.5-11.1) 10/15/19 15:15 Sodium 142 mmol/L (136-145) 10/15/19 15:15 Potassium 4.2 mmol/L (3.5-5.1) 10/15/19 15:15 Chloride 106 mmol/L (98-107) 10/15/19 15:15 Carbon Dioxide 31 mmol/L (21-32) 10/15/19 15:15 Anion Gap 6 MMOL/L (8-16) L 10/15/19 15:15 BUN 16.1 mg/dL (7-18) 10/15/19 15:15 Creatinine 1.2 mg/dL (0.55-1.3) 10/15/19 15:15 Est GFR (CKD-EPI)AfAm 56.89 10/15/19 15:15 Est GFR (CKD-EPI)NonAf 49.08 10/15/19 15:15 Random Glucose 88 mg/dL (74-106) 10/15/19 15:15 Calcium 9.3 mg/dL (8.5-10.1) 10/15/19 15:15 Total Bilirubin 0.2 mg/dL (0.2-1) 10/15/19 15:15 AST 53 U/L (15-37) H 10/15/19 15:15 ALT 55 U/L (13-61) 10/15/19 15:15 Alkaline Phosphatase 128 U/L (45-117) H 10/15/19 15:15 Total Protein 8.3 g/dl (6.4-8.2) H 10/15/19 15:15 Albumin 4.0 g/dl (3.4-5.0) 10/15/19 15:15 Syphilis Serology Non-reactive (NONREACTIVE) 10/15/19 15:15 COVID-19 (JANETTE) Not detected (Not Detected) 10/15/19 16:10 Labs noted. Pertinent Admission Physical Exam Findings: withdrawal symptoms. - Treatment Hospital Course: Detox Protocol Followed, Detoxed Safely, Responded well, Discharged Condition Good - Medication Discharge Medications: Ambulatory Orders Escitalopram Oxalate [Lexapro -] 20 mg PO DAILY #30 tablet 08/13/18 Albuterol Sulfate Inhaler - [Ventolin HFA Inhaler -] 2 puff IH PRN PRN #1 inhaler 12/05/18 Methadone [Dolophine -] 70 mg PO DAILY 03/15/19 Aspirin [ASA -] 81 mg PO ASDIR 05/10/19 Melatonin 5 mg PO HS 06/29/19 Escitalopram Oxalate [Lexapro -] 10 mg PO DAILY #30 tablet 10/19/19 traZODone HCL [Desyrel -] 50 mg PO HS #30 tablet 10/19/19 - Diagnosis (1) Alcohol dependence with uncomplicated withdrawal Current Visit: Yes Status: Acute (2) Asthma Current Visit: Yes Status: Chronic Qualifiers: Asthma severity: mild Asthma persistence: intermittent Asthma complication type: with status asthmaticus Qualified Code(s): J45.22 - Mild intermittent asthma with status asthmaticus (3) HIV (human immunodeficiency virus infection) Current Visit: Yes Status: Chronic Qualifiers: HIV symptom status: asymptomatic Qualified Code(s): Z21 - Asymptomatic human immunodeficiency virus [HIV] infection status (4) History of asthma Current Visit: Yes Status: Chronic (5) HTN (hypertension), benign Current Visit: No Status: Chronic - AMA Did Patient Leave Against Medical Advice: No
[2019-10-19 13:40] VITALS: BP 104/61; PULSE 72
[2019-10-20] MEDS ORDERED: chlordiazePOXIDE HCL 10 MG CAPSULE PO ONE (05:00)
== END 2019-10-19 13:40 | disposition home or self-care (01) | DRG 773 ==
LOC: YASAS 13:38 → Y6N 15:55
PROVIDERS: ADMIT Allergy & Immunology; ATTEND Allergy & Immunology
PROC: HZ2ZZZZ Detoxification Services for Substance Abuse Treatment (ICD-10-PCS; principal; 2019-10-15)
DX: F10.230 Alcohol dependence with withdrawal, uncomplicated (principal); F11.20 Opioid dependence, uncomplicated; F17.210 Nicotine dependence, cigarettes, uncomplicated; F19.282 Other psychoactive substance dependence with psychoactive substance-induced sleep disorder; F19.24 Other psychoactive substance dependence with psychoactive substance-induced mood disorder; F31.9 Bipolar disorder, unspecified; Z21 Asymptomatic human immunodeficiency virus [HIV] infection status; I10 Essential (primary) hypertension; J45.909 Unspecified asthma, uncomplicated; K74.60 Unspecified cirrhosis of liver; Z86.2 Personal history of diseases of the blood and blood-forming organs and certain disorders involving the immune mechanism; Z87.81 Personal history of (healed) traumatic fracture; Z56.0 Unemployment, unspecified
CPT/HCPCS: 36415; 80053; 85027; 86780; Q0162; U0003

== ENCOUNTER 2020-03-09 13:07 | Inpatient (IN) | payer OTHER ==
[2020-03-09 14:01] VITALS: BMI 23.2
[2020-03-09] MEDS ORDERED: ALBUTEROL SO4 HFA INHALER IH PRN (14:29)
[2020-03-09] MEDS ORDERED: chlordiazePOXIDE HCL 25 MG CAPSULE PO PRN (14:30)
[2020-03-09] MEDS ORDERED: MAG HYDROX/AL HYDROX/SIMETH 30 ML UNIT-DOSE CUP PO PRN (14:30)
[2020-03-09] MEDS ORDERED: NICOTINE POLACRILEX 2 MG GUM BUC PRN (14:30)
[2020-03-09] MEDS ORDERED: ONDANSETRON *ODT* 4 MG TABLET SL PRN (14:30)
[2020-03-09] MEDS ORDERED: MAGNESIUM CITRATE 300 ML BOTTLE PO PRN (14:30)
[2020-03-09] MEDS ORDERED: MENTHOL/PHENOL 1 EACH UD MM PRN (14:30)
[2020-03-09] MEDS ORDERED: ACETAMINOPHEN 325 MG TABLET (FP) PO PRN ×2 (14:30)
[2020-03-09] MEDS ORDERED: BISMUTH SUBSALICYLATE 262 MG/15 ML BTL PO PRN (14:30)
[2020-03-09] MEDS: NICOTINE 7 MG/24 HOURS TOPICAL PATCH TD SCH (15:18)
[2020-03-09] MEDS: IBUPROFEN 400 MG TABLET (FP) PO PRN (15:19)
[2020-03-09] MEDS: METHOCARBAMOL 500 MG TABLET PO PRN (15:19)
[2020-03-09] MEDS: chlordiazePOXIDE HCL 25 MG CAPSULE PO SCH ×2 (16:59→22:26)
[2020-03-09] MEDS: hydrOXYzine PAMOATE 25 MG CAPSULE (FP) PO SCH ×2 (16:59→22:26)
[2020-03-09] MEDS ORDERED: MELATONIN 5 MG TABLETS PO SCH (22:00)
[2020-03-09] MEDS: THIAMINE HCL 100 MG TABLET (FP) PO SCH (22:26)
[2020-03-10] MEDS: chlordiazePOXIDE HCL 25 MG CAPSULE PO SCH ×4 (05:47→22:14)
[2020-03-10] MEDS: hydrOXYzine PAMOATE 25 MG CAPSULE (FP) PO SCH ×5 (05:47→22:13)
[2020-03-10] MEDS: METHOCARBAMOL 500 MG TABLET PO PRN ×2 (05:48→17:43)
[2020-03-10] MEDS ORDERED: METHADONE HCL 10 MG TABLET PO SCH (10:15)
[2020-03-10] MEDS ORDERED: METHADONE HCL 40 MG DISPERSABLE TABLET ONE (10:28)
[2020-03-10] MEDS: PRENATAL VITAMINS W/ FOLIC ACID TABLET (FP) PO SCH (10:28)
[2020-03-10] MEDS ORDERED: METHADONE HCL 10 MG TABLET ONE (10:28)
[2020-03-10] MEDS: ASPIRIN 81 MG CHEWABLE TABLETS PO SCH (10:28)
[2020-03-10] MEDS: NICOTINE 7 MG/24 HOURS TOPICAL PATCH TD SCH (10:28)
[2020-03-10] MEDS: METHADONE 40 MG, METHADONE 30 MG PO SCH (10:29)
[2020-03-10] MEDS: ESCITALOPRAM OXALATE 20 MG TABLET PO SCH (10:49)
[2020-03-10] MEDS: MAGNESIUM HYDROX 2400MG/30ML ORAL SUSPENSION 30 ML CUP PO PRN ×2 (13:34→22:15)
[2020-03-10] MEDS: THIAMINE HCL 100 MG TABLET (FP) PO SCH (22:13)
[2020-03-10] MEDS: MELATONIN 5 MG TABLETS PO PRN (22:13)
[2020-03-11] MEDS ORDERED: METHADONE HCL 40 MG DISPERSABLE TABLET ONE (03:59)
[2020-03-11] MEDS ORDERED: METHADONE HCL 10 MG TABLET ONE (03:59)
[2020-03-11] MEDS: METHADONE 40 MG, METHADONE 30 MG PO SCH (05:56)
[2020-03-11] MEDS: chlordiazePOXIDE HCL 25 MG CAPSULE PO SCH ×4 (05:56→22:32)
[2020-03-11] MEDS: hydrOXYzine PAMOATE 25 MG CAPSULE (FP) PO SCH ×5 (05:57→22:32)
[2020-03-11] MEDS: IBUPROFEN 400 MG TABLET (FP) PO PRN (06:52)
[2020-03-11] MEDS: ESCITALOPRAM OXALATE 20 MG TABLET PO SCH (10:24)
[2020-03-11] MEDS: ASPIRIN 81 MG CHEWABLE TABLETS PO SCH (10:24)
[2020-03-11] MEDS: PRENATAL VITAMINS W/ FOLIC ACID TABLET (FP) PO SCH (10:24)
[2020-03-11] MEDS: MAGNESIUM HYDROX 2400MG/30ML ORAL SUSPENSION 30 ML CUP PO PRN (10:27)
[2020-03-11] MEDS: NICOTINE 7 MG/24 HOURS TOPICAL PATCH TD SCH (10:28)
[2020-03-11 12:36] LABS: HEMATOCRIT 36.7 % (32.4-45.2); HEMOGLOBIN 11.1 GM/dL (10.7-15.3); MCH 27.4 pg (25.7-33.7); MCHC 30.4 g/dl (32.0-36.0); MEAN CELL VOLUME 90.2 fl (80-96); MEAN PLT VOLUME 9.6 fl (7.5-11.1); PLATELET COUNT 160 K/MM3 (134-434); RBC 4.07 M/mm3 (3.60-5.2); RDW 18.7 % (11.6-15.6); WHITE BLOOD COUNT 5.2 K/mm3 (4.0-10.0)
[2020-03-11 12:43] LABS: ALBUMIN 3.9 g/dl (3.4-5.0); CALCIUM 9.6 mg/dL (8.5-10.1)
[2020-03-11 12:44] LABS: BLOOD UREA NITROGEN 17.7 mg/dL (7-18)
[2020-03-11 12:45] LABS: BILIRUBIN,TOTAL 0.5 mg/dL (0.2-1); TOT PROT 7.4 g/dl (6.4-8.2)
[2020-03-11 12:46] LABS: CREATININE 0.9 mg/dL (0.55-1.3)
[2020-03-11 16:12] LABS: URINE APPEARANCE CLEAR; URINE BILIRUBIN NEGATIVE (NEGATIVE); URINE COLOR YELLOW; URINE GLUCOSE (UA) NEGATIVE (NEGATIVE); URINE KETONE NEGATIVE (NEGATIVE); URINE LEUK ESTERASE NEGATIVE (NEGATIVE); URINE NITRITE NEGATIVE (NEGATIVE); URINE PROTEIN NEGATIVE (NEGATIVE); URINE UROBILINOGEN 0.2 mg/dL (0.2-1.0)
[2020-03-11] MEDS: METHOCARBAMOL 500 MG TABLET PO PRN (17:47)
[2020-03-11] MEDS: MELATONIN 5 MG TABLETS PO PRN ×2 (22:31→22:33)
[2020-03-11] MEDS: THIAMINE HCL 100 MG TABLET (FP) PO SCH (22:31)
[2020-03-12] MEDS ORDERED: chlordiazePOXIDE HCL 10 MG CAPSULE PO PRN
[2020-03-12] MEDS ORDERED: METHADONE HCL 10 MG TABLET ONE (04:43)
[2020-03-12] MEDS ORDERED: METHADONE HCL 40 MG DISPERSABLE TABLET ONE (04:43)
[2020-03-12] MEDS: METHADONE 40 MG, METHADONE 30 MG PO SCH (06:24)
[2020-03-12] MEDS: chlordiazePOXIDE HCL 10 MG CAPSULE PO SCH ×4 (06:24→22:19)
[2020-03-12] MEDS: IBUPROFEN 400 MG TABLET (FP) PO PRN ×2 (06:29→17:51)
[2020-03-12] MEDS: hydrOXYzine PAMOATE 25 MG CAPSULE (FP) PO SCH ×5 (06:59→22:20)
[2020-03-12] MEDS: METHOCARBAMOL 500 MG TABLET PO PRN (07:12)
[2020-03-12] MEDS: ASPIRIN 81 MG CHEWABLE TABLETS PO SCH (10:17)
[2020-03-12] MEDS: ESCITALOPRAM OXALATE 20 MG TABLET PO SCH (10:17)
[2020-03-12] MEDS: PRENATAL VITAMINS W/ FOLIC ACID TABLET (FP) PO SCH (10:17)
[2020-03-12] MEDS: NICOTINE 7 MG/24 HOURS TOPICAL PATCH TD SCH (10:17)
[2020-03-12] MEDS: BACITRACIN 15 GM TUBE TOPICAL OINTMENT TP SCH ×2 (13:25→22:20)
[2020-03-12] MEDS: MELATONIN 5 MG TABLETS PO PRN (22:19)
[2020-03-12] MEDS: THIAMINE HCL 100 MG TABLET (FP) PO SCH (22:19)
[2020-03-13] MEDS ORDERED: METHADONE HCL 40 MG DISPERSABLE TABLET ONE (05:02)
[2020-03-13] MEDS ORDERED: METHADONE HCL 10 MG TABLET ONE (05:02)
[2020-03-13] MEDS: chlordiazePOXIDE HCL 10 MG CAPSULE PO SCH ×2 (05:18→17:55)
[2020-03-13] MEDS: METHADONE 40 MG, METHADONE 30 MG PO SCH (05:18)
[2020-03-13] MEDS: hydrOXYzine PAMOATE 25 MG CAPSULE (FP) PO SCH ×3 (05:19→13:35)
[2020-03-13] MEDS: IBUPROFEN 400 MG TABLET (FP) PO PRN (06:16)
[2020-03-13] MEDS: ASPIRIN 81 MG CHEWABLE TABLETS PO SCH (10:07)
[2020-03-13] MEDS: ESCITALOPRAM OXALATE 20 MG TABLET PO SCH (10:07)
[2020-03-13] MEDS: NICOTINE 7 MG/24 HOURS TOPICAL PATCH TD SCH (10:07)
[2020-03-13] MEDS: PRENATAL VITAMINS W/ FOLIC ACID TABLET (FP) PO SCH (10:08)
[2020-03-13] MEDS: BACITRACIN 15 GM TUBE TOPICAL OINTMENT TP SCH ×2 (10:08→22:01)
[2020-03-13] MEDS ORDERED: diphenhydrAMINE HCL 25 MG CAPSULE (FP) PO ONE (15:30)
[2020-03-13] MEDS ORDERED: HYDROCORTISONE 1% TOPICAL CREAM 30 GM TUBE TP ONE (15:46)
[2020-03-13] MEDS: HYDROCORTISONE 1% TOPICAL CREAM 30 GM TUBE TP SCH ×3 (19:25→22:02)
[2020-03-13] MEDS: diphenhydrAMINE HCL 25 MG CAPSULE (FP) PO SCH (22:01)
[2020-03-13] MEDS: THIAMINE HCL 100 MG TABLET (FP) PO SCH (22:02)
[2020-03-14] MEDS ORDERED: METHADONE HCL 10 MG TABLET ONE (03:45)
[2020-03-14] MEDS ORDERED: METHADONE HCL 40 MG DISPERSABLE TABLET ONE (03:45)
[2020-03-14] MEDS ORDERED: chlordiazePOXIDE HCL 10 MG CAPSULE PO ONE (05:00)
[2020-03-14] MEDS: METHADONE 40 MG, METHADONE 30 MG PO SCH (06:19)
[2020-03-14 09:41] VITALS: BP 119/74; PULSE 73; TEMP 97.7
[2020-03-14] MEDS: HYDROCORTISONE 1% TOPICAL CREAM 30 GM TUBE TP SCH (10:02)
[2020-03-14] MEDS: ESCITALOPRAM OXALATE 20 MG TABLET PO SCH (10:02)
[2020-03-14] MEDS: diphenhydrAMINE HCL 25 MG CAPSULE (FP) PO SCH (10:02)
[2020-03-14] MEDS: ASPIRIN 81 MG CHEWABLE TABLETS PO SCH (10:02)
[2020-03-14] MEDS: BACITRACIN 15 GM TUBE TOPICAL OINTMENT TP SCH (10:02)
[2020-03-14] MEDS: NICOTINE 7 MG/24 HOURS TOPICAL PATCH TD SCH (10:03)
[2020-03-14] MEDS: PRENATAL VITAMINS W/ FOLIC ACID TABLET (FP) PO SCH (10:03)
== END 2020-03-14 11:59 | disposition other institution (70) | DRG 773 ==
LOC: YASAS 13:07 → Y6N 14:33
PROVIDERS: ADMIT Allergy & Immunology; ATTEND Allergy & Immunology
PROC: HZ2ZZZZ Detoxification Services for Substance Abuse Treatment (ICD-10-PCS; principal; 2020-03-09)
DX: F10.230 Alcohol dependence with withdrawal, uncomplicated (principal); F14.20 Cocaine dependence, uncomplicated; F11.20 Opioid dependence, uncomplicated; F17.210 Nicotine dependence, cigarettes, uncomplicated; F19.282 Other psychoactive substance dependence with psychoactive substance-induced sleep disorder; F19.280 Other psychoactive substance dependence with psychoactive substance-induced anxiety disorder; F19.24 Other psychoactive substance dependence with psychoactive substance-induced mood disorder; Z21 Asymptomatic human immunodeficiency virus [HIV] infection status; G47.00 Insomnia, unspecified; H02.844 Edema of left upper eyelid; J45.909 Unspecified asthma, uncomplicated; K59.00 Constipation, unspecified; Z87.440 Personal history of urinary (tract) infections; Z86.2 Personal history of diseases of the blood and blood-forming organs and certain disorders involving the immune mechanism
CPT/HCPCS: 36415; 80053; 81003; 82550; 85027; 86780; C9803; U0003

== ENCOUNTER 2020-03-14 12:15 | Inpatient (IN) | payer OTHER ==
[2020-03-14] MEDS ORDERED: MENTHOL/PHENOL 1 EACH UD MM PRN (14:56)
[2020-03-14] MEDS ORDERED: guaiFENesin 200 MG/10 ML 10 ML UNIT-DOSE CUPS PO PRN (14:56)
[2020-03-14] MEDS ORDERED: ACETAMINOPHEN 325 MG TABLET (FP) PO PRN (14:56)
[2020-03-14] MEDS ORDERED: P-EPHED 60MG/TRIPROLIDI 2.5MG TABLET PO PRN (14:56)
[2020-03-14] MEDS ORDERED: MAG HYDROX/AL HYDROX/SIMETH 30 ML UNIT-DOSE CUP PO PRN (14:56)
[2020-03-14] MEDS ORDERED: NICOTINE POLACRILEX 2 MG GUM BUC PRN (14:56)
[2020-03-14] MEDS ORDERED: LOPERAMIDE HCL 2 MG CAPSULE PO PRN (14:56)
[2020-03-14] MEDS ORDERED: MAGNESIUM CITRATE 300 ML BOTTLE PO PRN (14:56)
[2020-03-14] MEDS: IBUPROFEN 400 MG TABLET (FP) PO PRN (17:31)
[2020-03-14] MEDS: MELATONIN 5 MG TABLETS PO SCH (21:26)
[2020-03-14] MEDS: THIAMINE HCL 100 MG TABLET (FP) PO SCH (21:26)
[2020-03-15] MEDS ORDERED: METHADONE HCL 10 MG TABLET PO SCH (06:00)
[2020-03-15] MEDS: IBUPROFEN 400 MG TABLET (FP) PO PRN ×2 (06:05→14:14)
[2020-03-15] MEDS: METHADONE 40 MG, METHADONE 30 MG PO SCH (07:38)
[2020-03-15] MEDS ORDERED: METHADONE HCL 10 MG TABLET ONE (07:38)
[2020-03-15] MEDS ORDERED: METHADONE HCL 40 MG DISPERSABLE TABLET ONE (07:38)
[2020-03-15] MEDS: PRENATAL VITAMINS W/ FOLIC ACID TABLET (FP) PO SCH (10:31)
[2020-03-15] MEDS: ASPIRIN 81 MG CHEWABLE TABLETS PO SCH (10:31)
[2020-03-15] MEDS: NICOTINE 7 MG/24 HOURS TOPICAL PATCH TD SCH (10:31)
[2020-03-15] MEDS: ESCITALOPRAM OXALATE 20 MG TABLET PO SCH (10:31)
[2020-03-15] MEDS: hydrOXYzine PAMOATE 25 MG CAPSULE (FP) PO PRN (10:31)
[2020-03-15] MEDS: MAGNESIUM HYDROX 2400MG/30ML ORAL SUSPENSION 30 ML CUP PO PRN (14:14)
[2020-03-15] MEDS: MELATONIN 5 MG TABLETS PO SCH (21:19)
[2020-03-15] MEDS: THIAMINE HCL 100 MG TABLET (FP) PO SCH (21:19)
[2020-03-16] MEDS ORDERED: METHADONE HCL 10 MG TABLET ONE (03:17)
[2020-03-16] MEDS ORDERED: METHADONE HCL 40 MG DISPERSABLE TABLET ONE (03:17)
[2020-03-16] MEDS: METHADONE 40 MG, METHADONE 30 MG PO SCH (06:16)
[2020-03-16] MEDS: NICOTINE 7 MG/24 HOURS TOPICAL PATCH TD SCH (10:31)
[2020-03-16] MEDS: PRENATAL VITAMINS W/ FOLIC ACID TABLET (FP) PO SCH (10:31)
[2020-03-16] MEDS: ESCITALOPRAM OXALATE 20 MG TABLET PO SCH (10:32)
[2020-03-16] MEDS: ASPIRIN 81 MG CHEWABLE TABLETS PO SCH (10:32)
[2020-03-16] MEDS: IBUPROFEN 400 MG TABLET (FP) PO PRN ×2 (10:33→21:25)
[2020-03-16] MEDS: MELATONIN 5 MG TABLETS PO SCH (21:24)
[2020-03-16] MEDS: THIAMINE HCL 100 MG TABLET (FP) PO SCH (21:24)
[2020-03-17] MEDS ORDERED: METHADONE HCL 40 MG DISPERSABLE TABLET ONE (03:37)
[2020-03-17] MEDS ORDERED: METHADONE HCL 10 MG TABLET ONE (03:37)
[2020-03-17] MEDS: METHADONE 40 MG, METHADONE 30 MG PO SCH (06:12)
[2020-03-17] MEDS: ESCITALOPRAM OXALATE 20 MG TABLET PO SCH (10:35)
[2020-03-17] MEDS: PRENATAL VITAMINS W/ FOLIC ACID TABLET (FP) PO SCH (10:35)
[2020-03-17] MEDS: ASPIRIN 81 MG CHEWABLE TABLETS PO SCH (10:35)
[2020-03-17] MEDS: hydrOXYzine PAMOATE 25 MG CAPSULE (FP) PO PRN (10:35)
[2020-03-17] MEDS: IBUPROFEN 400 MG TABLET (FP) PO PRN (10:36)
[2020-03-17] MEDS: NICOTINE 7 MG/24 HOURS TOPICAL PATCH TD SCH (10:42)
[2020-03-17] MEDS: THIAMINE HCL 100 MG TABLET (FP) PO SCH (21:22)
[2020-03-17] MEDS: MELATONIN 5 MG TABLETS PO SCH (21:22)
[2020-03-18] MEDS ORDERED: METHADONE HCL 40 MG DISPERSABLE TABLET ONE (03:14)
[2020-03-18] MEDS ORDERED: METHADONE HCL 10 MG TABLET ONE (03:14)
[2020-03-18] MEDS: METHADONE 40 MG, METHADONE 30 MG PO SCH (06:39)
[2020-03-18] MEDS: IBUPROFEN 400 MG TABLET (FP) PO PRN (06:41)
[2020-03-18] MEDS: ASPIRIN 81 MG CHEWABLE TABLETS PO SCH (10:23)
[2020-03-18] MEDS: hydrOXYzine PAMOATE 25 MG CAPSULE (FP) PO PRN ×2 (10:23→14:12)
[2020-03-18] MEDS: ESCITALOPRAM OXALATE 20 MG TABLET PO SCH (10:23)
[2020-03-18] MEDS: NICOTINE 7 MG/24 HOURS TOPICAL PATCH TD SCH (10:23)
[2020-03-18] MEDS: PRENATAL VITAMINS W/ FOLIC ACID TABLET (FP) PO SCH (10:23)
[2020-03-18] MEDS: METHOCARBAMOL 500 MG TABLET PO SCH ×2 (14:12→21:04)
[2020-03-18] MEDS: THIAMINE HCL 100 MG TABLET (FP) PO SCH (21:04)
[2020-03-18] MEDS: MELATONIN 5 MG TABLETS PO SCH (21:04)
[2020-03-19] MEDS ORDERED: METHADONE HCL 10 MG TABLET ONE (03:11)
[2020-03-19] MEDS ORDERED: METHADONE HCL 40 MG DISPERSABLE TABLET ONE (03:11)
[2020-03-19] MEDS: METHOCARBAMOL 500 MG TABLET PO SCH ×3 (06:28→21:10)
[2020-03-19] MEDS: METHADONE 40 MG, METHADONE 30 MG PO SCH (06:29)
[2020-03-19] MEDS: ASPIRIN 81 MG CHEWABLE TABLETS PO SCH (10:39)
[2020-03-19] MEDS: PRENATAL VITAMINS W/ FOLIC ACID TABLET (FP) PO SCH (10:40)
[2020-03-19] MEDS: ESCITALOPRAM OXALATE 20 MG TABLET PO SCH (10:40)
[2020-03-19] MEDS: NICOTINE 7 MG/24 HOURS TOPICAL PATCH TD SCH (10:40)
[2020-03-19] MEDS: ALBUTEROL SO4 HFA INHALER IH PRN (12:04)
[2020-03-19] MEDS: THIAMINE HCL 100 MG TABLET (FP) PO SCH (21:10)
[2020-03-19] MEDS: MELATONIN 5 MG TABLETS PO SCH (21:10)
[2020-03-20] MEDS ORDERED: METHADONE HCL 40 MG DISPERSABLE TABLET ONE (03:16)
[2020-03-20] MEDS ORDERED: METHADONE HCL 10 MG TABLET ONE (03:17)
[2020-03-20] MEDS: METHADONE 40 MG, METHADONE 30 MG PO SCH (06:12)
[2020-03-20] MEDS: METHOCARBAMOL 500 MG TABLET PO SCH ×3 (06:12→21:22)
[2020-03-20] MEDS: ESCITALOPRAM OXALATE 20 MG TABLET PO SCH (10:23)
[2020-03-20] MEDS: ASPIRIN 81 MG CHEWABLE TABLETS PO SCH (10:23)
[2020-03-20] MEDS: NICOTINE 7 MG/24 HOURS TOPICAL PATCH TD SCH (10:23)
[2020-03-20] MEDS: PRENATAL VITAMINS W/ FOLIC ACID TABLET (FP) PO SCH (10:23)
[2020-03-20] MEDS: IBUPROFEN 400 MG TABLET (FP) PO PRN (10:25)
[2020-03-20] MEDS: ALBUTEROL SO4 HFA INHALER IH PRN (10:26)
[2020-03-20] MEDS: MAGNESIUM HYDROX 2400MG/30ML ORAL SUSPENSION 30 ML CUP PO PRN (12:58)
[2020-03-20] MEDS: THIAMINE HCL 100 MG TABLET (FP) PO SCH (21:22)
[2020-03-20] MEDS: MELATONIN 5 MG TABLETS PO SCH (21:22)
[2020-03-21] MEDS ORDERED: METHADONE HCL 10 MG TABLET ONE (03:11)
[2020-03-21] MEDS ORDERED: METHADONE HCL 40 MG DISPERSABLE TABLET ONE (03:11)
[2020-03-21] MEDS: METHOCARBAMOL 500 MG TABLET PO SCH (05:55)
[2020-03-21] MEDS: METHADONE 40 MG, METHADONE 30 MG PO SCH (05:55)
[2020-03-21 07:04] VITALS: BP 99/69; PULSE 65; TEMP 98.1
[2020-03-21] MEDS: ASPIRIN 81 MG CHEWABLE TABLETS PO SCH (09:57)
[2020-03-21] MEDS: PRENATAL VITAMINS W/ FOLIC ACID TABLET (FP) PO SCH (09:58)
[2020-03-21] MEDS: hydrOXYzine PAMOATE 25 MG CAPSULE (FP) PO PRN (09:58)
[2020-03-21] MEDS: ESCITALOPRAM OXALATE 20 MG TABLET PO SCH (09:58)
[2020-03-21] MEDS: NICOTINE 7 MG/24 HOURS TOPICAL PATCH TD SCH (09:59)
== END 2020-03-21 10:20 | disposition home or self-care (01) | DRG 772 ==
LOC: YASAS 12:15 → Y3W 12:16
PROVIDERS: ADMIT Allergy & Immunology; ATTEND Allergy & Immunology
PROC: HZ42ZZZ Group Counseling for Substance Abuse Treatment, Cognitive-Behavioral (ICD-10-PCS; principal; 2020-03-14)
DX: F10.20 Alcohol dependence, uncomplicated (principal); F14.20 Cocaine dependence, uncomplicated; F11.20 Opioid dependence, uncomplicated; F17.210 Nicotine dependence, cigarettes, uncomplicated; Z21 Asymptomatic human immunodeficiency virus [HIV] infection status; I10 Essential (primary) hypertension; J45.20 Mild intermittent asthma, uncomplicated
CPT/HCPCS: C9803; U0003

== ENCOUNTER 2020-04-20 13:57 | Inpatient (IN) | payer OTHER ==
[2020-04-20 15:22] VITALS: BMI 22.8
[2020-04-20] MEDS ORDERED: ACETAMINOPHEN 325 MG TABLET (FP) ONE (15:32)
[2020-04-20] MEDS ORDERED: ACETAMINOPHEN 325 MG TABLET (FP) PO ONE (15:33)
[2020-04-20] MEDS ORDERED: ACETAMINOPHEN 325 MG TABLET (FP) PO PRN ×2 (16:23)
[2020-04-20] MEDS ORDERED: MAG HYDROX/AL HYDROX/SIMETH 30 ML UNIT-DOSE CUP PO PRN (16:23)
[2020-04-20] MEDS ORDERED: IBUPROFEN 400 MG TABLET (FP) PO PRN (16:23)
[2020-04-20] MEDS ORDERED: MAGNESIUM CITRATE 300 ML BOTTLE PO PRN (16:23)
[2020-04-20] MEDS ORDERED: ONDANSETRON *ODT* 4 MG TABLET SL PRN (16:23)
[2020-04-20] MEDS ORDERED: BISMUTH SUBSALICYLATE 524 MG/30 ML UD PO PRN (16:23)
[2020-04-20] MEDS ORDERED: NICOTINE POLACRILEX 2 MG GUM BUC PRN (16:23)
[2020-04-20] MEDS ORDERED: MAGNESIUM HYDROX 2400MG/30ML ORAL SUSPENSION 30 ML CUP PO PRN (16:23)
[2020-04-20] MEDS ORDERED: MENTHOL/PHENOL 1 EACH UD MM PRN (16:23)
[2020-04-20] MEDS ORDERED: chlordiazePOXIDE HCL 25 MG CAPSULE PO PRN (16:24)
[2020-04-20] MEDS: chlordiazePOXIDE HCL 25 MG CAPSULE PO SCH ×2 (17:32→22:25)
[2020-04-20] MEDS: NICOTINE 14 MG/24 HOURS TOPICAL PATCH TD SCH (17:34)
[2020-04-20] MEDS: hydrOXYzine PAMOATE 25 MG CAPSULE (FP) PO SCH ×2 (18:42→22:25)
[2020-04-20] MEDS: THIAMINE HCL 100 MG TABLET (FP) PO SCH (22:25)
[2020-04-20] MEDS: MELATONIN 5 MG TABLETS PO SCH (22:25)
[2020-04-21] MEDS: chlordiazePOXIDE HCL 25 MG CAPSULE PO SCH ×4 (06:37→23:31)
[2020-04-21] MEDS: hydrOXYzine PAMOATE 25 MG CAPSULE (FP) PO SCH (06:37)
[2020-04-21] MEDS ORDERED: METHADONE HCL 10 MG TABLET PO ONE (09:33)
[2020-04-21] MEDS ORDERED: METHADONE 40 MG, METHADONE 30 MG PO ONE (09:55)
[2020-04-21] MEDS ORDERED: METHADONE HCL 10 MG TABLET ONE (10:43)
[2020-04-21] MEDS ORDERED: METHADONE HCL 40 MG DISPERSABLE TABLET ONE (10:44)
[2020-04-21] MEDS: PRENATAL VITAMINS W/ FOLIC ACID TABLET (FP) PO SCH (11:00)
[2020-04-21] MEDS: NICOTINE 14 MG/24 HOURS TOPICAL PATCH TD SCH (11:01)
[2020-04-21 12:58] LABS: HEMATOCRIT 37.2 % (32.4-45.2); HEMOGLOBIN 12.2 GM/dL (10.7-15.3); MCH 29.1 pg (25.7-33.7); MCHC 32.8 g/dl (32.0-36.0); MEAN CELL VOLUME 88.8 fl (80-96); MEAN PLT VOLUME 7.9 fl (7.5-11.1); PLATELET COUNT 233 K/MM3 (134-434); RBC 4.19 M/mm3 (3.60-5.2); RDW 17.7 % (11.6-15.6)
[2020-04-21 13:03] LABS: WHITE BLOOD COUNT 1.9 K/mm3 (4.0-10.0)
[2020-04-21 13:04] LABS: POTASSIUM 4.1 mmol/L (3.5-5.1)
[2020-04-21 13:08] LABS: BLOOD UREA NITROGEN 13.5 mg/dL (7-18)
[2020-04-21 13:12] LABS: ALBUMIN 3.5 g/dl (3.4-5.0)
[2020-04-21 13:15] LABS: CREATININE 0.8 mg/dL (0.55-1.3)
[2020-04-21 13:16] LABS: BILIRUBIN,TOTAL 0.8 mg/dL (0.2-1); TOT PROT 7.3 g/dl (6.4-8.2)
[2020-04-21 13:18] LABS: CALCIUM 9.5 mg/dL (8.5-10.1)
[2020-04-21] MEDS: METHOCARBAMOL 500 MG TABLET PO PRN (17:43)
[2020-04-21] MEDS ORDERED: MASKS NR ONE (18:24)
[2020-04-21] MEDS: MELATONIN 5 MG TABLETS PO SCH (23:32)
[2020-04-21] MEDS: THIAMINE HCL 100 MG TABLET (FP) PO SCH (23:32)
[2020-04-22] MEDS ORDERED: METHADONE HCL 10 MG TABLET ONE (04:06)
[2020-04-22] MEDS ORDERED: METHADONE HCL 40 MG DISPERSABLE TABLET ONE (04:07)
[2020-04-22] MEDS ORDERED: METHADONE HCL 40 MG DISPERSABLE TABLET PO SCH (06:00)
[2020-04-22] MEDS: chlordiazePOXIDE HCL 25 MG CAPSULE PO SCH ×4 (06:58→22:56)
[2020-04-22] MEDS: METHADONE 40 MG, METHADONE 30 MG PO SCH (06:59)
[2020-04-22 09:52] LABS: EOS % 1.1 % (0-4.5); HEMATOCRIT 36.8 % (32.4-45.2); HEMOGLOBIN 11.9 GM/dL (10.7-15.3); LYMPH % 48.8 % (8-40); MCH 29.2 pg (25.7-33.7); MCHC 32.4 g/dl (32.0-36.0); MEAN CELL VOLUME 90.1 fl (80-96); MEAN PLT VOLUME 8.4 fl (7.5-11.1); MONO % 20.2 % (3.8-10.2); NEUT % 28.9 % (42.8-82.8); PLATELET COUNT 220 K/MM3 (134-434); RBC 4.09 M/mm3 (3.60-5.2); RDW 17.7 % (11.6-15.6)
[2020-04-22] MEDS: NICOTINE 14 MG/24 HOURS TOPICAL PATCH TD SCH (11:31)
[2020-04-22] MEDS: hydrOXYzine PAMOATE 25 MG CAPSULE (FP) PO PRN ×3 (11:32→22:54)
[2020-04-22] MEDS: PRENATAL VITAMINS W/ FOLIC ACID TABLET (FP) PO SCH (11:32)
[2020-04-22 13:06] LABS: ANISOCYTOSIS 1+; MACROCYTOSIS 0; PLATELET ESTIMATE NORMAL
[2020-04-22] MEDS: METHOCARBAMOL 500 MG TABLET PO PRN (18:47)
[2020-04-22] MEDS: MELATONIN 5 MG TABLETS PO SCH (22:53)
[2020-04-22] MEDS: THIAMINE HCL 100 MG TABLET (FP) PO SCH (22:53)
[2020-04-23] MEDS ORDERED: chlordiazePOXIDE HCL 10 MG CAPSULE PO PRN
[2020-04-23] MEDS ORDERED: METHADONE HCL 10 MG TABLET ONE (04:27)
[2020-04-23] MEDS ORDERED: METHADONE HCL 40 MG DISPERSABLE TABLET ONE (04:27)
[2020-04-23] MEDS: chlordiazePOXIDE HCL 10 MG CAPSULE PO SCH ×2 (06:56→11:16)
[2020-04-23] MEDS: METHADONE 40 MG, METHADONE 30 MG PO SCH (06:57)
[2020-04-23 10:46] LABS: EOS % 1.9 % (0-4.5); HEMATOCRIT 38.2 % (32.4-45.2); HEMOGLOBIN 12.6 GM/dL (10.7-15.3); LYMPH % 47.6 % (8-40); MCH 29.5 pg (25.7-33.7); MCHC 33.1 g/dl (32.0-36.0); MEAN CELL VOLUME 89.3 fl (80-96); MEAN PLT VOLUME 8.5 fl (7.5-11.1); MONO % 15.5 % (3.8-10.2); PLATELET COUNT 234 K/MM3 (134-434); RBC 4.28 M/mm3 (3.60-5.2); RDW 17.4 % (11.6-15.6); WHITE BLOOD COUNT 2.5 K/mm3 (4.0-10.0)
[2020-04-23] MEDS: NICOTINE 14 MG/24 HOURS TOPICAL PATCH TD SCH (11:17)
[2020-04-23] MEDS: PRENATAL VITAMINS W/ FOLIC ACID TABLET (FP) PO SCH (11:17)
[2020-04-23] MEDS: METHOCARBAMOL 500 MG TABLET PO PRN (11:19)
[2020-04-23 11:30] LABS: ALBUMIN 3.4 g/dl (3.4-5.0); BLOOD UREA NITROGEN 11.3 mg/dL (7-18); CALCIUM 9.5 mg/dL (8.5-10.1)
[2020-04-23 11:34] LABS: CREATININE 0.8 mg/dL (0.55-1.3)
[2020-04-23 11:35] LABS: BILIRUBIN,TOTAL 0.4 mg/dL (0.2-1); TOT PROT 7.2 g/dl (6.4-8.2)
[2020-04-23] MEDS ORDERED: P-EPHED 60MG/TRIPROLIDI 2.5MG TABLET PO PRN (11:58)
[2020-04-23 13:34] VITALS: BP 119/76; PULSE 79; TEMP 97.5
[2020-04-24] MEDS ORDERED: chlordiazePOXIDE HCL 10 MG CAPSULE PO SCH (05:00)
[2020-04-25] MEDS ORDERED: chlordiazePOXIDE HCL 10 MG CAPSULE PO ONE (05:00)
== END 2020-04-23 15:49 | disposition left against medical advice (07) | DRG 770 ==
LOC: YASAS 13:57 → Y3N 15:29
PROVIDERS: ADMIT Allergy & Immunology; ATTEND Allergy & Immunology
PROC: HZ2ZZZZ Detoxification Services for Substance Abuse Treatment (ICD-10-PCS; principal; 2020-04-20)
DX: F10.230 Alcohol dependence with withdrawal, uncomplicated (principal); F12.20 Cannabis dependence, uncomplicated; F17.210 Nicotine dependence, cigarettes, uncomplicated; F41.9 Anxiety disorder, unspecified; U07.1 COVID-19; Z21 Asymptomatic human immunodeficiency virus [HIV] infection status; I10 Essential (primary) hypertension; J45.909 Unspecified asthma, uncomplicated; H91.91 Unspecified hearing loss, right ear
CPT/HCPCS: 36415; 80053; 85025; 85027; 86780; C9803; U0003

== ENCOUNTER 2020-07-06 11:17 | Inpatient (IN) | payer OTHER ==
[2020-07-06 11:41] VITALS: BMI 24.5
[2020-07-06] MEDS ORDERED: MAGNESIUM HYDROX 2400MG/30ML ORAL SUSPENSION 30 ML CUP PO PRN (12:15)
[2020-07-06] MEDS ORDERED: NICOTINE POLACRILEX 2 MG GUM BUC PRN (12:15)
[2020-07-06] MEDS ORDERED: BISMUTH SUBSALICYLATE 524 MG/30 ML PO PRN (12:15)
[2020-07-06] MEDS ORDERED: MAGNESIUM CITRATE 300 ML BOTTLE PO PRN (12:15)
[2020-07-06] MEDS ORDERED: LORazepam 1 MG TABLET PO PRN (12:15)
[2020-07-06] MEDS ORDERED: ACETAMINOPHEN 325 MG TABLET (FP) PO PRN ×2 (12:15)
[2020-07-06] MEDS ORDERED: ONDANSETRON *ODT* 4 MG TABLET SL PRN (12:15)
[2020-07-06] MEDS ORDERED: METHOCARBAMOL 500 MG TABLET PO PRN (12:15)
[2020-07-06] MEDS ORDERED: MAG HYDROX/AL HYDROX/SIMETH 30 ML UNIT-DOSE CUP PO PRN (12:15)
[2020-07-06] MEDS ORDERED: MENTHOL/PHENOL 1 EACH UD MM PRN (12:15)
[2020-07-06] MEDS: ASPIRIN 81 MG CHEWABLE TABLETS PO SCH (13:20)
[2020-07-06] MEDS: NICOTINE 14 MG/24 HOURS TOPICAL PATCH TD SCH (13:20)
[2020-07-06] MEDS: hydrOXYzine PAMOATE 25 MG CAPSULE (FP) PO SCH ×3 (13:20→22:02)
[2020-07-06] MEDS: PRENATAL VITAMINS W/ FOLIC ACID TABLET (FP) PO SCH (13:21)
[2020-07-06 15:12] LABS: BLOOD UREA NITROGEN 16.6 mg/dL (7-18)
[2020-07-06 15:16] LABS: CREATININE 0.7 mg/dL (0.55-1.3)
[2020-07-06 15:17] LABS: TOT PROT 7.8 g/dl (6.4-8.2)
[2020-07-06] MEDS: ALBUTEROL SO4 HFA INHALER IH PRN (16:25)
[2020-07-06 16:53] LABS: HEMATOCRIT 35.4 % (32.4-45.2); HEMOGLOBIN 11.5 GM/dL (10.7-15.3); MCHC 32.5 g/dl (32.0-36.0); MEAN CELL VOLUME 89.1 fl (80-96); MEAN PLT VOLUME 8.5 fl (7.5-11.1); PLATELET COUNT 251 K/MM3 (134-434); RBC 3.98 M/mm3 (3.60-5.2); RDW 16.5 % (11.6-15.6); WHITE BLOOD COUNT 4.8 K/mm3 (4.0-10.0)
[2020-07-06] MEDS: LORazepam 2 MG TABLET PO SCH ×2 (17:32→22:02)
[2020-07-06] MEDS ORDERED: MELATONIN 5 MG TABLETS PO SCH ×2 (22:00)
[2020-07-06] MEDS: THIAMINE HCL 100 MG TABLET (FP) PO SCH (22:02)
[2020-07-06] MEDS: MELATONIN 5 MG TABLETS PO PRN (22:03)
[2020-07-07] MEDS ORDERED: METHADONE HCL 10 MG TABLET ONE (04:01)
[2020-07-07] MEDS ORDERED: METHADONE HCL 40 MG DISPERSABLE TABLET ONE (04:01)
[2020-07-07] MEDS: LORazepam 2 MG TABLET PO SCH ×4 (05:46→22:05)
[2020-07-07] MEDS: METHADONE 40 MG, METHADONE 20 MG PO SCH (05:47)
[2020-07-07] MEDS: hydrOXYzine PAMOATE 25 MG CAPSULE (FP) PO SCH ×5 (05:51→22:04)
[2020-07-07] MEDS ORDERED: METHADONE HCL 10 MG TABLET PO SCH (06:00)
[2020-07-07] MEDS ORDERED: ESCITALOPRAM OXALATE 10 MG TABLET ONE (09:22)
[2020-07-07] MEDS: PRENATAL VITAMINS W/ FOLIC ACID TABLET (FP) PO SCH (10:35)
[2020-07-07] MEDS: ASPIRIN 81 MG CHEWABLE TABLETS PO SCH (10:35)
[2020-07-07] MEDS: NICOTINE 14 MG/24 HOURS TOPICAL PATCH TD SCH (10:35)
[2020-07-07] MEDS: ESCITALOPRAM OXALATE 20 MG TABLET PO SCH (10:36)
[2020-07-07] MEDS: IBUPROFEN 400 MG TABLET (FP) PO PRN (10:38)
[2020-07-07] MEDS: THIAMINE HCL 100 MG TABLET (FP) PO SCH (22:04)
[2020-07-07] MEDS: MELATONIN 5 MG TABLETS PO PRN (22:05)
[2020-07-08] MEDS ORDERED: METHADONE HCL 10 MG TABLET ONE (03:53)
[2020-07-08] MEDS ORDERED: METHADONE HCL 40 MG DISPERSABLE TABLET ONE (03:53)
[2020-07-08] MEDS: METHADONE 40 MG, METHADONE 20 MG PO SCH (06:12)
[2020-07-08] MEDS: LORazepam 1 MG TABLET PO SCH ×4 (06:13→22:07)
[2020-07-08] MEDS: hydrOXYzine PAMOATE 25 MG CAPSULE (FP) PO SCH ×5 (06:13→22:06)
[2020-07-08] MEDS ORDERED: ESCITALOPRAM OXALATE 10 MG TABLET ONE (09:06)
[2020-07-08] MEDS: PRENATAL VITAMINS W/ FOLIC ACID TABLET (FP) PO SCH (10:10)
[2020-07-08] MEDS: ASPIRIN 81 MG CHEWABLE TABLETS PO SCH (10:10)
[2020-07-08] MEDS: ESCITALOPRAM OXALATE 20 MG TABLET PO SCH (10:11)
[2020-07-08] MEDS: NICOTINE 14 MG/24 HOURS TOPICAL PATCH TD SCH (10:11)
[2020-07-08] MEDS: IBUPROFEN 400 MG TABLET (FP) PO PRN (10:12)
[2020-07-08] MEDS: ALBUTEROL SO4 HFA INHALER IH PRN (17:21)
[2020-07-08] MEDS: THIAMINE HCL 100 MG TABLET (FP) PO SCH (22:06)
[2020-07-08] MEDS: MELATONIN 5 MG TABLETS PO PRN (22:07)
[2020-07-09] MEDS ORDERED: LORazepam 0.5 MG TABLET PO PRN
[2020-07-09] MEDS ORDERED: METHADONE HCL 40 MG DISPERSABLE TABLET ONE (03:48)
[2020-07-09] MEDS ORDERED: METHADONE HCL 10 MG TABLET ONE (03:48)
[2020-07-09] MEDS: METHADONE 40 MG, METHADONE 20 MG PO SCH (05:40)
[2020-07-09] MEDS: hydrOXYzine PAMOATE 25 MG CAPSULE (FP) PO SCH ×5 (05:41→22:04)
[2020-07-09] MEDS: LORazepam 0.5 MG TABLET PO SCH ×4 (05:41→22:05)
[2020-07-09] MEDS ORDERED: ESCITALOPRAM OXALATE 10 MG TABLET ONE (09:32)
[2020-07-09 10:07] LABS: SARS-CoV-2 NAA Not Detected (Not Detected)
[2020-07-09] MEDS: ESCITALOPRAM OXALATE 20 MG TABLET PO SCH (10:20)
[2020-07-09] MEDS: ASPIRIN 81 MG CHEWABLE TABLETS PO SCH (10:20)
[2020-07-09] MEDS: PRENATAL VITAMINS W/ FOLIC ACID TABLET (FP) PO SCH (10:21)
[2020-07-09] MEDS: NICOTINE 14 MG/24 HOURS TOPICAL PATCH TD SCH (10:22)
[2020-07-09] MEDS: IBUPROFEN 400 MG TABLET (FP) PO PRN (14:22)
[2020-07-09] MEDS: THIAMINE HCL 100 MG TABLET (FP) PO SCH (22:05)
[2020-07-10] MEDS ORDERED: METHADONE HCL 10 MG TABLET ONE (03:40)
[2020-07-10] MEDS ORDERED: METHADONE HCL 40 MG DISPERSABLE TABLET ONE (03:41)
[2020-07-10] MEDS ORDERED: LORazepam 0.5 MG TABLET PO ONE (05:00)
[2020-07-10] MEDS: METHADONE 40 MG, METHADONE 20 MG PO SCH (06:06)
[2020-07-10] MEDS: hydrOXYzine PAMOATE 25 MG CAPSULE (FP) PO SCH ×3 (06:07→13:54)
[2020-07-10 06:31] VITALS: BP 131/88; PULSE 80; TEMP 96.6
[2020-07-10] MEDS ORDERED: ESCITALOPRAM OXALATE 10 MG TABLET ONE (09:21)
[2020-07-10] MEDS: PRENATAL VITAMINS W/ FOLIC ACID TABLET (FP) PO SCH (10:17)
[2020-07-10] MEDS: ASPIRIN 81 MG CHEWABLE TABLETS PO SCH (10:17)
[2020-07-10] MEDS: NICOTINE 14 MG/24 HOURS TOPICAL PATCH TD SCH (10:17)
[2020-07-10] MEDS: ESCITALOPRAM OXALATE 20 MG TABLET PO SCH (10:18)
== END 2020-07-10 15:53 | disposition other institution (70) | DRG 773 ==
LOC: YASAS 11:17 → Y3N 11:48
PROVIDERS: ADMIT Allergy & Immunology; ATTEND Allergy & Immunology
PROC: HZ2ZZZZ Detoxification Services for Substance Abuse Treatment (ICD-10-PCS; principal; 2020-07-06)
DX: F10.230 Alcohol dependence with withdrawal, uncomplicated (principal); F11.20 Opioid dependence, uncomplicated; F14.20 Cocaine dependence, uncomplicated; F12.10 Cannabis abuse, uncomplicated; F17.210 Nicotine dependence, cigarettes, uncomplicated; F19.282 Other psychoactive substance dependence with psychoactive substance-induced sleep disorder; F19.280 Other psychoactive substance dependence with psychoactive substance-induced anxiety disorder; F19.24 Other psychoactive substance dependence with psychoactive substance-induced mood disorder; F31.9 Bipolar disorder, unspecified; F41.9 Anxiety disorder, unspecified; F32.9 Major depressive disorder, single episode, unspecified; Z21 Asymptomatic human immunodeficiency virus [HIV] infection status; I10 Essential (primary) hypertension; J45.909 Unspecified asthma, uncomplicated; Z86.16 Personal history of COVID-19
CPT/HCPCS: 36415; 80053; 85027; 86780; C9803; Q0162; U0003; U0005

== ENCOUNTER 2020-07-10 15:35 | Inpatient (IN) | payer OTHER ==
[2020-07-10] MEDS ORDERED: MAGNESIUM HYDROX 2400MG/30ML ORAL SUSPENSION 30 ML CUP PO PRN (17:17)
[2020-07-10] MEDS ORDERED: LOPERAMIDE HCL 2 MG CAPSULE PO PRN (17:17)
[2020-07-10] MEDS ORDERED: ACETAMINOPHEN 325 MG TABLET (FP) PO PRN (17:17)
[2020-07-10] MEDS ORDERED: MAGNESIUM CITRATE 300 ML BOTTLE PO PRN (17:17)
[2020-07-10] MEDS ORDERED: guaiFENesin 200 MG/10 ML 10 ML UNIT-DOSE CUPS PO PRN (17:17)
[2020-07-10] MEDS ORDERED: P-EPHED 60MG/TRIPROLIDI 2.5MG TABLET PO PRN (17:17)
[2020-07-10] MEDS ORDERED: MENTHOL/PHENOL 1 EACH UD MM PRN (17:17)
[2020-07-10] MEDS ORDERED: ALBUTEROL SO4 HFA INHALER IH PRN (17:18)
[2020-07-10] MEDS: THIAMINE HCL 100 MG TABLET (FP) PO SCH (21:43)
[2020-07-10] MEDS: MELATONIN 5 MG TABLETS PO SCH (21:43)
[2020-07-11] MEDS ORDERED: METHADONE HCL 40 MG DISPERSABLE TABLET PO SCH (06:00)
[2020-07-11] MEDS ORDERED: METHADONE HCL 40 MG DISPERSABLE TABLET ONE (06:24)
[2020-07-11] MEDS: METHADONE 40 MG, METHADONE 20 MG PO SCH (06:24)
[2020-07-11] MEDS ORDERED: METHADONE HCL 10 MG TABLET ONE (06:24)
[2020-07-11] MEDS: MAG HYDROX/AL HYDROX/SIMETH 30 ML UNIT-DOSE CUP PO PRN (06:35)
[2020-07-11] MEDS: PRENATAL VITAMINS W/ FOLIC ACID TABLET (FP) PO SCH (10:23)
[2020-07-11] MEDS: ASPIRIN 81 MG CHEWABLE TABLETS PO SCH (10:23)
[2020-07-11] MEDS: IBUPROFEN 400 MG TABLET (FP) PO PRN (10:32)
[2020-07-11] MEDS: METHOCARBAMOL 500 MG TABLET PO PRN ×2 (13:08→21:27)
[2020-07-11] MEDS: ESCITALOPRAM OXALATE 20 MG TABLET PO SCH (14:55)
[2020-07-11] MEDS: hydrOXYzine PAMOATE 25 MG CAPSULE (FP) PO PRN ×2 (14:56→21:26)
[2020-07-11] MEDS: THIAMINE HCL 100 MG TABLET (FP) PO SCH (21:27)
[2020-07-11] MEDS: MELATONIN 5 MG TABLETS PO SCH (21:27)
[2020-07-12] MEDS ORDERED: METHADONE HCL 10 MG TABLET ONE (04:10)
[2020-07-12] MEDS ORDERED: METHADONE HCL 40 MG DISPERSABLE TABLET ONE (04:11)
[2020-07-12] MEDS: METHADONE 40 MG, METHADONE 20 MG PO SCH (06:15)
[2020-07-12] MEDS: MAG HYDROX/AL HYDROX/SIMETH 30 ML UNIT-DOSE CUP PO PRN (06:15)
[2020-07-12] MEDS: METHOCARBAMOL 500 MG TABLET PO PRN (06:16)
[2020-07-12] MEDS ORDERED: MELATONIN 5 MG TABLETS PO PRN (08:40)
[2020-07-12] MEDS: ESCITALOPRAM OXALATE 20 MG TABLET PO SCH (10:14)
[2020-07-12] MEDS: PRENATAL VITAMINS W/ FOLIC ACID TABLET (FP) PO SCH (10:14)
[2020-07-12] MEDS: ASPIRIN 81 MG CHEWABLE TABLETS PO SCH (10:14)
[2020-07-12] MEDS: IBUPROFEN 400 MG TABLET (FP) PO PRN (10:15)
[2020-07-12] MEDS: THIAMINE HCL 100 MG TABLET (FP) PO SCH (21:33)
[2020-07-12] MEDS: traZODone HCL 50 MG TABLET (FP) PO SCH (21:33)
[2020-07-13] MEDS ORDERED: METHADONE HCL 10 MG TABLET ONE (06:06)
[2020-07-13] MEDS: IBUPROFEN 400 MG TABLET (FP) PO PRN (06:07)
[2020-07-13] MEDS: METHADONE 40 MG, METHADONE 20 MG PO SCH (06:07)
[2020-07-13] MEDS ORDERED: METHADONE HCL 40 MG DISPERSABLE TABLET ONE (06:07)
[2020-07-13] MEDS: METHOCARBAMOL 500 MG TABLET PO PRN (06:08)
[2020-07-13] MEDS: PRENATAL VITAMINS W/ FOLIC ACID TABLET (FP) PO SCH (09:52)
[2020-07-13] MEDS: ASPIRIN 81 MG CHEWABLE TABLETS PO SCH (09:53)
[2020-07-13] MEDS: ESCITALOPRAM OXALATE 20 MG TABLET PO SCH (09:53)
[2020-07-13] MEDS: THIAMINE HCL 100 MG TABLET (FP) PO SCH (21:29)
[2020-07-13] MEDS: traZODone HCL 50 MG TABLET (FP) PO SCH (21:29)
[2020-07-14] MEDS ORDERED: METHADONE HCL 40 MG DISPERSABLE TABLET ONE (03:23)
[2020-07-14] MEDS ORDERED: METHADONE HCL 10 MG TABLET ONE (03:23)
[2020-07-14] MEDS: METHOCARBAMOL 500 MG TABLET PO PRN (06:11)
[2020-07-14] MEDS: METHADONE 40 MG, METHADONE 20 MG PO SCH (06:12)
[2020-07-14] MEDS: ESCITALOPRAM OXALATE 20 MG TABLET PO SCH (10:24)
[2020-07-14] MEDS: ASPIRIN 81 MG CHEWABLE TABLETS PO SCH (10:24)
[2020-07-14] MEDS: PRENATAL VITAMINS W/ FOLIC ACID TABLET (FP) PO SCH (10:24)
[2020-07-14 14:12] LABS: SARS-CoV-2 NAA Not Detected (Not Detected)
[2020-07-14] MEDS: traZODone HCL 50 MG TABLET (FP) PO SCH (21:43)
[2020-07-14] MEDS: THIAMINE HCL 100 MG TABLET (FP) PO SCH (21:43)
[2020-07-15] MEDS ORDERED: METHADONE HCL 40 MG DISPERSABLE TABLET ONE (04:03)
[2020-07-15] MEDS ORDERED: METHADONE HCL 10 MG TABLET ONE (04:03)
[2020-07-15] MEDS: METHADONE 40 MG, METHADONE 20 MG PO SCH (06:14)
[2020-07-15 07:24] VITALS: BP 122/78; PULSE 66; TEMP 97.1
[2020-07-15] MEDS: ESCITALOPRAM OXALATE 20 MG TABLET PO SCH (09:23)
[2020-07-15] MEDS: PRENATAL VITAMINS W/ FOLIC ACID TABLET (FP) PO SCH (09:23)
[2020-07-15] MEDS: ASPIRIN 81 MG CHEWABLE TABLETS PO SCH (09:23)
== END 2020-07-15 09:40 | disposition home or self-care (01) | DRG 772 ==
LOC: YASAS 15:35 → Y5N 15:36
PROVIDERS: ADMIT Allergy & Immunology; ATTEND Allergy & Immunology
PROC: HZ42ZZZ Group Counseling for Substance Abuse Treatment, Cognitive-Behavioral (ICD-10-PCS; principal; 2020-07-10)
DX: F10.20 Alcohol dependence, uncomplicated (principal); F11.20 Opioid dependence, uncomplicated; F14.20 Cocaine dependence, uncomplicated; F19.280 Other psychoactive substance dependence with psychoactive substance-induced anxiety disorder; F19.282 Other psychoactive substance dependence with psychoactive substance-induced sleep disorder; F19.24 Other psychoactive substance dependence with psychoactive substance-induced mood disorder; F31.9 Bipolar disorder, unspecified; Z21 Asymptomatic human immunodeficiency virus [HIV] infection status; I10 Essential (primary) hypertension; I83.93 Asymptomatic varicose veins of bilateral lower extremities; J45.909 Unspecified asthma, uncomplicated; K70.9 Alcoholic liver disease, unspecified
CPT/HCPCS: C9803; U0003; U0005

== ENCOUNTER 2020-08-24 13:03 | Inpatient (IN) | payer OTHER ==
[2020-08-24] MEDS ORDERED: NICOTINE POLACRILEX 2 MG GUM BUC PRN (15:06)
[2020-08-24] MEDS ORDERED: ONDANSETRON *ODT* 4 MG TABLET SL PRN (15:06)
[2020-08-24] MEDS ORDERED: MAGNESIUM CITRATE 300 ML BOTTLE PO PRN (15:06)
[2020-08-24] MEDS ORDERED: MAG HYDROX/AL HYDROX/SIMETH 30 ML UNIT-DOSE CUP PO PRN (15:06)
[2020-08-24] MEDS ORDERED: MAGNESIUM HYDROX 2400MG/30ML ORAL SUSPENSION 30 ML CUP PO PRN (15:06)
[2020-08-24] MEDS ORDERED: IBUPROFEN 400 MG TABLET (FP) PO PRN (15:06)
[2020-08-24] MEDS ORDERED: ACETAMINOPHEN 325 MG TABLET (FP) PO PRN ×2 (15:06)
[2020-08-24] MEDS ORDERED: MENTHOL/PHENOL 1 EACH UD MM PRN (15:06)
[2020-08-24] MEDS ORDERED: LORazepam 1 MG TABLET PO PRN (15:06)
[2020-08-24] MEDS ORDERED: METHOCARBAMOL 500 MG TABLET PO PRN (15:06)
[2020-08-24] MEDS ORDERED: BISMUTH SUBSALICYLATE 524 MG/30 ML PO PRN (15:06)
[2020-08-24 15:24] VITALS: BMI 23.2
[2020-08-24] MEDS: LORazepam 2 MG TABLET PO SCH ×2 (18:07→22:21)
[2020-08-24] MEDS: hydrOXYzine PAMOATE 25 MG CAPSULE (FP) PO SCH ×2 (18:07→22:21)
[2020-08-24] MEDS: THIAMINE HCL 100 MG TABLET (FP) PO SCH (22:21)
[2020-08-24] MEDS: MELATONIN 5 MG TABLETS PO SCH (22:21)
[2020-08-25] MEDS: LORazepam 2 MG TABLET PO SCH ×4 (05:55→22:25)
[2020-08-25] MEDS: hydrOXYzine PAMOATE 25 MG CAPSULE (FP) PO SCH ×5 (05:58→22:24)
[2020-08-25] MEDS ORDERED: methaDONE HCL 40 MG DISPERSABLE TABLET PO ONE (08:41)
[2020-08-25 09:41] LABS: URINE APPEARANCE CLOUDY; URINE BILIRUBIN NEGATIVE (NEGATIVE); URINE COLOR YELLOW; URINE GLUCOSE (UA) NEGATIVE (NEGATIVE); URINE KETONE NEGATIVE (NEGATIVE); URINE LEUK ESTERASE NEGATIVE (NEGATIVE); URINE NITRITE NEGATIVE (NEGATIVE); URINE PROTEIN NEGATIVE (NEGATIVE); URINE UROBILINOGEN 0.2 mg/dL (0.2-1.0)
[2020-08-25] MEDS: PRENATAL VITAMINS W/ FOLIC ACID TABLET (FP) PO SCH (10:51)
[2020-08-25 13:24] LABS: HEMATOCRIT 38.2 % (32.4-45.2); MCH 27.7 pg (25.7-33.7); MCHC 31.5 g/dl (32.0-36.0); MEAN CELL VOLUME 88.1 fl (80-96); MEAN PLT VOLUME 8.9 fl (7.5-11.1); PLATELET COUNT 246 10^3/uL (134-434); RBC 4.33 M/mm3 (3.60-5.2); RDW 15.9 % (11.6-15.6); WHITE BLOOD COUNT 5.2 K/mm3 (4.0-10.0)
[2020-08-25 13:42] LABS: ALBUMIN 4.3 g/dl (3.4-5.0); BLOOD UREA NITROGEN 17.4 mg/dL (7-18); CALCIUM 9.8 mg/dL (8.5-10.1)
[2020-08-25 13:44] LABS: CREATININE 1.4 mg/dL (0.55-1.3)
[2020-08-25 13:46] LABS: BILIRUBIN,TOTAL 0.3 mg/dL (0.2-1)
[2020-08-25] MEDS: traZODone HCL 50 MG TABLET (FP) PO SCH (22:24)
[2020-08-25] MEDS: MELATONIN 5 MG TABLETS PO SCH (22:24)
[2020-08-25] MEDS: THIAMINE HCL 100 MG TABLET (FP) PO SCH (22:24)
[2020-08-26] MEDS: LORazepam 1 MG TABLET PO SCH ×4 (06:30→22:03)
[2020-08-26] MEDS: hydrOXYzine PAMOATE 25 MG CAPSULE (FP) PO SCH ×5 (06:31→22:02)
[2020-08-26] MEDS: methaDONE HCL 40 MG DISPERSABLE TABLET PO SCH (06:31)
[2020-08-26] MEDS: ESCITALOPRAM OXALATE 10 MG TABLET PO SCH (10:22)
[2020-08-26] MEDS: PRENATAL VITAMINS W/ FOLIC ACID TABLET (FP) PO SCH (10:23)
[2020-08-26] MEDS: THIAMINE HCL 100 MG TABLET (FP) PO SCH (22:02)
[2020-08-26] MEDS: traZODone HCL 50 MG TABLET (FP) PO SCH (22:02)
[2020-08-26] MEDS: MELATONIN 5 MG TABLETS PO SCH (22:03)
[2020-08-27] MEDS ORDERED: LORazepam 0.5 MG TABLET PO PRN
[2020-08-27] MEDS: LORazepam 0.5 MG TABLET PO SCH ×4 (06:36→22:41)
[2020-08-27] MEDS: methaDONE HCL 40 MG DISPERSABLE TABLET PO SCH (06:37)
[2020-08-27] MEDS: hydrOXYzine PAMOATE 25 MG CAPSULE (FP) PO SCH ×5 (06:56→22:41)
[2020-08-27] MEDS: ESCITALOPRAM OXALATE 10 MG TABLET PO SCH (10:10)
[2020-08-27] MEDS: PRENATAL VITAMINS W/ FOLIC ACID TABLET (FP) PO SCH (10:10)
[2020-08-27] MEDS: MELATONIN 5 MG TABLETS PO SCH (22:41)
[2020-08-27] MEDS: THIAMINE HCL 100 MG TABLET (FP) PO SCH (22:41)
[2020-08-27] MEDS: traZODone HCL 50 MG TABLET (FP) PO SCH (22:41)
[2020-08-28] MEDS ORDERED: LORazepam 0.5 MG TABLET PO ONE (05:00)
[2020-08-28] MEDS: methaDONE HCL 40 MG DISPERSABLE TABLET PO SCH (07:14)
[2020-08-28] MEDS: hydrOXYzine PAMOATE 25 MG CAPSULE (FP) PO SCH ×2 (07:14→09:29)
[2020-08-28 08:55] VITALS: BP 105/76; PULSE 87; TEMP 98.6
[2020-08-28] MEDS: PRENATAL VITAMINS W/ FOLIC ACID TABLET (FP) PO SCH (09:29)
[2020-08-28] MEDS: ESCITALOPRAM OXALATE 10 MG TABLET PO SCH (09:29)
== END 2020-08-28 10:05 | disposition home or self-care (01) | DRG 773 ==
LOC: YASAS 13:03 → Y3N 15:38
PROVIDERS: ADMIT Allergy & Immunology; ATTEND Allergy & Immunology
PROC: HZ2ZZZZ Detoxification Services for Substance Abuse Treatment (ICD-10-PCS; principal; 2020-08-24)
DX: F10.230 Alcohol dependence with withdrawal, uncomplicated (principal); F11.23 Opioid dependence with withdrawal; F17.210 Nicotine dependence, cigarettes, uncomplicated; F19.24 Other psychoactive substance dependence with psychoactive substance-induced mood disorder; F32.9 Major depressive disorder, single episode, unspecified; F41.9 Anxiety disorder, unspecified; Z21 Asymptomatic human immunodeficiency virus [HIV] infection status; G47.00 Insomnia, unspecified; I12.9 Hypertensive chronic kidney disease with stage 1 through stage 4 chronic kidney disease, or unspecified chronic kidney disease; N18.9 Chronic kidney disease, unspecified; J45.909 Unspecified asthma, uncomplicated
CPT/HCPCS: 36415; 80053; 81003; 85027; 86780; C9803; Q0162; U0003; U0005

== ENCOUNTER 2020-09-28 14:36 | Inpatient (IN) | payer OTHER ==
[2020-09-28 18:04] VITALS: BMI 23.0
[2020-09-28] MEDS ORDERED: LORazepam 1 MG TABLET PO PRN (18:28)
[2020-09-28] MEDS ORDERED: MENTHOL/PHENOL 1 EACH UD MM PRN (18:28)
[2020-09-28] MEDS ORDERED: MAGNESIUM HYDROX 2400MG/30ML ORAL SUSPENSION 30 ML CUP PO PRN (18:28)
[2020-09-28] MEDS ORDERED: METHOCARBAMOL 500 MG TABLET PO PRN (18:28)
[2020-09-28] MEDS ORDERED: IBUPROFEN 400 MG TABLET (FP) PO PRN (18:28)
[2020-09-28] MEDS ORDERED: ONDANSETRON *ODT* 4 MG TABLET SL PRN (18:28)
[2020-09-28] MEDS ORDERED: MAGNESIUM CITRATE 300 ML BOTTLE PO PRN (18:28)
[2020-09-28] MEDS ORDERED: LORazepam 2 MG TABLET PO ONE (18:28)
[2020-09-28] MEDS ORDERED: NICOTINE 10 MG CARTRIDGE (INHALER) IH PRN (18:28)
[2020-09-28] MEDS ORDERED: BISMUTH SUBSALICYLATE 524 MG/30 ML PO PRN (18:28)
[2020-09-28] MEDS ORDERED: ACETAMINOPHEN 325 MG TABLET (FP) PO PRN ×2 (18:28)
[2020-09-28] MEDS ORDERED: MAG HYDROX/AL HYDROX/SIMETH 30 ML UNIT-DOSE CUP PO PRN (18:28)
[2020-09-28] MEDS ORDERED: LORazepam 2 MG TABLET ONE (19:45)
[2020-09-28] MEDS ORDERED: MELATONIN 5 MG TABLETS PO SCH (22:00)
[2020-09-28] MEDS ORDERED: traZODone HCL 50 MG TABLET (FP) PO ONE (22:00)
[2020-09-28] MEDS: LORazepam 2 MG TABLET PO SCH (22:31)
[2020-09-28] MEDS: hydrOXYzine PAMOATE 25 MG CAPSULE (FP) PO SCH (22:31)
[2020-09-28] MEDS: THIAMINE HCL 100 MG TABLET (FP) PO SCH (22:31)
[2020-09-29] MEDS: hydrOXYzine PAMOATE 25 MG CAPSULE (FP) PO SCH ×5 (06:27→22:30)
[2020-09-29] MEDS: LORazepam 2 MG TABLET PO SCH ×4 (06:27→22:30)
[2020-09-29] MEDS ORDERED: methaDONE HCL 10 MG TABLET PO SCH (10:00)
[2020-09-29] MEDS ORDERED: methaDONE HCL 10 MG TABLET ONE (10:45)
[2020-09-29] MEDS: methaDONE 40 MG, methaDONE 30 MG PO SCH (10:46)
[2020-09-29] MEDS ORDERED: methaDONE HCL 40 MG DISPERSABLE TABLET ONE (10:46)
[2020-09-29] MEDS: PRENATAL VITAMINS W/ FOLIC ACID TABLET (FP) PO SCH (10:47)
[2020-09-29] MEDS: NICOTINE 14 MG/24 HOURS TOPICAL PATCH TD SCH (10:48)
[2020-09-29 13:54] LABS: HEMATOCRIT 36.7 % (32.4-45.2); HEMOGLOBIN 12.3 GM/dL (10.7-15.3); MCH 29.7 pg (25.7-33.7); MCHC 33.6 g/dl (32.0-36.0); MEAN CELL VOLUME 88.4 fl (80-96); MEAN PLT VOLUME 8.1 fl (7.5-11.1); PLATELET COUNT 222 10^3/uL (134-434); RBC 4.15 M/mm3 (3.60-5.2); RDW 16.4 % (11.6-15.6); WHITE BLOOD COUNT 3.7 K/mm3 (4.0-10.0)
[2020-09-29 14:22] LABS: CALCIUM 9.6 mg/dL (8.5-10.1)
[2020-09-29 14:23] LABS: ALBUMIN 3.7 g/dl (3.4-5.0); BLOOD UREA NITROGEN 17.5 mg/dL (7-18)
[2020-09-29 14:26] LABS: CREATININE 0.7 mg/dL (0.55-1.3)
[2020-09-29 14:28] LABS: BILIRUBIN,TOTAL 0.5 mg/dL (0.2-1); TOT PROT 7.3 g/dl (6.4-8.2)
[2020-09-29] MEDS: traZODone HCL 50 MG TABLET (FP) PO SCH (22:30)
[2020-09-29] MEDS: THIAMINE HCL 100 MG TABLET (FP) PO SCH (22:30)
[2020-09-30] MEDS ORDERED: methaDONE HCL 10 MG TABLET ONE ×2 (04:29→04:38)
[2020-09-30] MEDS ORDERED: methaDONE HCL 40 MG DISPERSABLE TABLET ONE ×2 (04:30→04:39)
[2020-09-30] MEDS: methaDONE 40 MG, methaDONE 30 MG PO SCH (06:27)
[2020-09-30] MEDS: LORazepam 1 MG TABLET PO SCH ×4 (06:27→22:02)
[2020-09-30] MEDS: hydrOXYzine PAMOATE 25 MG CAPSULE (FP) PO SCH ×2 (06:27→10:06)
[2020-09-30] MEDS: ESCITALOPRAM OXALATE 10 MG TABLET PO SCH (10:06)
[2020-09-30] MEDS: PRENATAL VITAMINS W/ FOLIC ACID TABLET (FP) PO SCH (10:06)
[2020-09-30] MEDS: NICOTINE 14 MG/24 HOURS TOPICAL PATCH TD SCH (10:06)
[2020-09-30] MEDS ORDERED: hydrOXYzine PAMOATE 25 MG CAPSULE (FP) PO PRN (12:50)
[2020-09-30] MEDS: THIAMINE HCL 100 MG TABLET (FP) PO SCH (22:02)
[2020-09-30] MEDS: traZODone HCL 50 MG TABLET (FP) PO SCH (22:02)
[2020-10-01] MEDS ORDERED: LORazepam 0.5 MG TABLET PO PRN
[2020-10-01] MEDS ORDERED: methaDONE HCL 10 MG TABLET ONE (04:32)
[2020-10-01] MEDS ORDERED: methaDONE HCL 40 MG DISPERSABLE TABLET ONE (04:32)
[2020-10-01] MEDS: methaDONE 40 MG, methaDONE 30 MG PO SCH (06:13)
[2020-10-01] MEDS: LORazepam 0.5 MG TABLET PO SCH ×4 (06:14→22:29)
[2020-10-01] MEDS: NICOTINE 14 MG/24 HOURS TOPICAL PATCH TD SCH (10:38)
[2020-10-01] MEDS: PRENATAL VITAMINS W/ FOLIC ACID TABLET (FP) PO SCH (10:38)
[2020-10-01] MEDS: ESCITALOPRAM OXALATE 10 MG TABLET PO SCH (10:40)
[2020-10-01] MEDS: THIAMINE HCL 100 MG TABLET (FP) PO SCH (22:29)
[2020-10-01] MEDS: traZODone HCL 50 MG TABLET (FP) PO SCH (22:29)
[2020-10-02] MEDS ORDERED: methaDONE HCL 10 MG TABLET ONE (03:58)
[2020-10-02] MEDS ORDERED: methaDONE HCL 40 MG DISPERSABLE TABLET ONE (04:01)
[2020-10-02] MEDS ORDERED: LORazepam 0.5 MG TABLET PO ONE (05:00)
[2020-10-02] MEDS: methaDONE 40 MG, methaDONE 30 MG PO SCH (05:32)
[2020-10-02 10:05] VITALS: BP 102/60; PULSE 78; TEMP 96.1
== END 2020-10-02 10:55 | disposition home or self-care (01) | DRG 773 ==
LOC: YASAS 14:36 → Y3N 20:16
PROVIDERS: ADMIT Allergy & Immunology; ATTEND Allergy & Immunology
PROC: HZ2ZZZZ Detoxification Services for Substance Abuse Treatment (ICD-10-PCS; principal; 2020-09-28)
DX: F10.230 Alcohol dependence with withdrawal, uncomplicated (principal); F11.20 Opioid dependence, uncomplicated; F12.10 Cannabis abuse, uncomplicated; F17.210 Nicotine dependence, cigarettes, uncomplicated; F19.282 Other psychoactive substance dependence with psychoactive substance-induced sleep disorder; F19.24 Other psychoactive substance dependence with psychoactive substance-induced mood disorder; F41.9 Anxiety disorder, unspecified; F32.9 Major depressive disorder, single episode, unspecified; Z21 Asymptomatic human immunodeficiency virus [HIV] infection status; I10 Essential (primary) hypertension; J45.20 Mild intermittent asthma, uncomplicated
CPT/HCPCS: 36415; 80053; 81025; 85027; 86780; C9803; U0003; U0005

== ENCOUNTER 2020-11-20 09:32 | Inpatient (IN) | payer OTHER ==
[2020-11-20 11:19] VITALS: BMI 21.9
[2020-11-20] MEDS ORDERED: BISMUTH SUBSALICYLATE 524 MG/30 ML PO PRN (11:55)
[2020-11-20] MEDS ORDERED: ONDANSETRON *ODT* 4 MG TABLET SL PRN (11:55)
[2020-11-20] MEDS ORDERED: NICOTINE 10 MG CARTRIDGE (INHALER) IH PRN (11:55)
[2020-11-20] MEDS ORDERED: MENTHOL/PHENOL 1 EACH UD MM PRN (11:55)
[2020-11-20] MEDS ORDERED: ACETAMINOPHEN 325 MG TABLET (FP) PO PRN (11:55)
[2020-11-20] MEDS ORDERED: IBUPROFEN 400 MG TABLET (FP) PO PRN (11:55)
[2020-11-20] MEDS ORDERED: MAG HYDROX/AL HYDROX/SIMETH 30 ML UNIT-DOSE CUP PO PRN (11:55)
[2020-11-20] MEDS ORDERED: LORazepam 1 MG TABLET PO PRN (11:55)
[2020-11-20] MEDS ORDERED: MAGNESIUM CITRATE 300 ML BOTTLE PO PRN (11:55)
[2020-11-20] MEDS ORDERED: METHOCARBAMOL 500 MG TABLET PO PRN (11:55)
[2020-11-20] MEDS: hydrOXYzine PAMOATE 25 MG CAPSULE (FP) PO SCH ×3 (13:04→22:38)
[2020-11-20] MEDS ORDERED: ALBUTEROL SO4 HFA INHALER IH PRN (13:51)
[2020-11-20] MEDS: FAMOTIDINE 20 MG TABLET PO SCH ×2 (14:14→22:38)
[2020-11-20] MEDS: LORazepam 2 MG TABLET PO SCH ×2 (17:45→22:38)
[2020-11-20] MEDS: THIAMINE HCL 100 MG TABLET (FP) PO SCH (22:38)
[2020-11-20] MEDS: MELATONIN 5 MG TABLETS PO SCH (22:38)
[2020-11-21] MEDS: hydrOXYzine PAMOATE 25 MG CAPSULE (FP) PO SCH ×5 (06:18→22:05)
[2020-11-21] MEDS: LORazepam 2 MG TABLET PO SCH ×4 (06:19→22:02)
[2020-11-21] MEDS ORDERED: methaDONE HCL 10 MG TABLET ONE (09:56)
[2020-11-21] MEDS ORDERED: methaDONE HCL 40 MG DISPERSABLE TABLET ONE (09:57)
[2020-11-21] MEDS ORDERED: methaDONE HCL 10 MG TABLET PO ONE (10:00)
[2020-11-21] MEDS: PRENATAL VITAMINS W/ FOLIC ACID TABLET (FP) PO SCH (10:22)
[2020-11-21] MEDS: FAMOTIDINE 20 MG TABLET PO SCH ×2 (10:23→22:02)
[2020-11-21] MEDS: methaDONE 40 MG, methaDONE 20 MG PO SCH (10:23)
[2020-11-21] MEDS: NICOTINE 21 MG/24 HOURS TOPICAL PATCH TD SCH (10:23)
[2020-11-21 10:34] LABS: ALBUMIN 3.3 g/dl (3.4-5.0); CALCIUM 9.4 mg/dL (8.5-10.1)
[2020-11-21 10:35] LABS: BLOOD UREA NITROGEN 13.8 mg/dL (7-18)
[2020-11-21 10:38] LABS: CREATININE 0.8 mg/dL (0.55-1.3)
[2020-11-21 10:39] LABS: BILIRUBIN,TOTAL 0.4 mg/dL (0.2-1); TOT PROT 7.1 g/dl (6.4-8.2)
[2020-11-21] MEDS: ESCITALOPRAM OXALATE 20 MG TABLET PO SCH (12:22)
[2020-11-21] MEDS: MAGNESIUM HYDROX 2400MG/30ML ORAL SUSPENSION 30 ML CUP PO PRN (12:23)
[2020-11-21] MEDS: NICOTINE POLACRILEX 4 MG GUM BUC PRN (15:35)
[2020-11-21] MEDS: ACETAMINOPHEN 325 MG TABLET (FP) PO PRN (17:49)
[2020-11-21] MEDS: THIAMINE HCL 100 MG TABLET (FP) PO SCH (22:02)
[2020-11-21] MEDS: traZODone HCL 50 MG TABLET (FP) PO SCH (22:02)
[2020-11-21] MEDS: MELATONIN 5 MG TABLETS PO SCH (22:03)
[2020-11-22] MEDS ORDERED: methaDONE HCL 10 MG TABLET ONE (04:20)
[2020-11-22] MEDS ORDERED: methaDONE HCL 40 MG DISPERSABLE TABLET ONE (04:20)
[2020-11-22] MEDS: methaDONE 40 MG, methaDONE 20 MG PO SCH (05:18)
[2020-11-22] MEDS: hydrOXYzine PAMOATE 25 MG CAPSULE (FP) PO SCH ×5 (05:19→22:14)
[2020-11-22] MEDS: LORazepam 1 MG TABLET PO SCH ×4 (05:19→22:14)
[2020-11-22] MEDS ORDERED: methaDONE HCL 10 MG TABLET PO SCH (06:00)
[2020-11-22] MEDS: FAMOTIDINE 20 MG TABLET PO SCH ×2 (10:17→22:14)
[2020-11-22] MEDS: ESCITALOPRAM OXALATE 20 MG TABLET PO SCH (10:17)
[2020-11-22] MEDS: PRENATAL VITAMINS W/ FOLIC ACID TABLET (FP) PO SCH (10:17)
[2020-11-22] MEDS: NICOTINE 21 MG/24 HOURS TOPICAL PATCH TD SCH (10:18)
[2020-11-22] MEDS: NICOTINE POLACRILEX 4 MG GUM BUC PRN (13:41)
[2020-11-22] MEDS: MELATONIN 5 MG TABLETS PO SCH (22:14)
[2020-11-22] MEDS: traZODone HCL 50 MG TABLET (FP) PO SCH (22:14)
[2020-11-22] MEDS: THIAMINE HCL 100 MG TABLET (FP) PO SCH (22:14)
[2020-11-23] MEDS ORDERED: LORazepam 0.5 MG TABLET PO PRN
[2020-11-23] MEDS ORDERED: methaDONE HCL 10 MG TABLET ONE (04:19)
[2020-11-23] MEDS ORDERED: methaDONE HCL 40 MG DISPERSABLE TABLET ONE (04:19)
[2020-11-23] MEDS: methaDONE 40 MG, methaDONE 20 MG PO SCH (06:08)
[2020-11-23] MEDS: hydrOXYzine PAMOATE 25 MG CAPSULE (FP) PO SCH ×5 (06:09→22:11)
[2020-11-23] MEDS: LORazepam 0.5 MG TABLET PO SCH ×4 (06:09→22:11)
[2020-11-23] MEDS: ESCITALOPRAM OXALATE 20 MG TABLET PO SCH (10:42)
[2020-11-23] MEDS: PRENATAL VITAMINS W/ FOLIC ACID TABLET (FP) PO SCH (10:45)
[2020-11-23] MEDS: NICOTINE 21 MG/24 HOURS TOPICAL PATCH TD SCH (10:45)
[2020-11-23] MEDS: FAMOTIDINE 20 MG TABLET PO SCH ×2 (10:45→22:11)
[2020-11-23] MEDS: ACETAMINOPHEN 325 MG TABLET (FP) PO PRN (10:46)
[2020-11-23] MEDS: NICOTINE POLACRILEX 4 MG GUM BUC PRN (10:46)
[2020-11-23] MEDS: MAGNESIUM HYDROX 2400MG/30ML ORAL SUSPENSION 30 ML CUP PO PRN (11:03)
[2020-11-23 12:56] VITALS: TEMP 97.7
[2020-11-23] MEDS: traZODone HCL 50 MG TABLET (FP) PO SCH (22:10)
[2020-11-23] MEDS: THIAMINE HCL 100 MG TABLET (FP) PO SCH (22:11)
[2020-11-23] MEDS: MELATONIN 5 MG TABLETS PO SCH (22:11)
[2020-11-24] MEDS ORDERED: methaDONE HCL 10 MG TABLET ONE (04:59)
[2020-11-24] MEDS ORDERED: methaDONE HCL 40 MG DISPERSABLE TABLET ONE (04:59)
[2020-11-24] MEDS ORDERED: LORazepam 0.5 MG TABLET PO ONE (05:00)
[2020-11-24] MEDS: methaDONE 40 MG, methaDONE 20 MG PO SCH (06:08)
[2020-11-24] MEDS: hydrOXYzine PAMOATE 25 MG CAPSULE (FP) PO SCH (06:10)
[2020-11-24 06:39] VITALS: BP 122/97; PULSE 78
== END 2020-11-24 09:36 | disposition home or self-care (01) | DRG 773 ==
LOC: YASAS 09:32 → Y6N 12:31
PROVIDERS: ADMIT Allergy & Immunology; ATTEND Allergy & Immunology
PROC: HZ2ZZZZ Detoxification Services for Substance Abuse Treatment (ICD-10-PCS; principal; 2020-11-20)
DX: F10.230 Alcohol dependence with withdrawal, uncomplicated (principal); F11.20 Opioid dependence, uncomplicated; F14.20 Cocaine dependence, uncomplicated; F17.213 Nicotine dependence, cigarettes, with withdrawal; F19.280 Other psychoactive substance dependence with psychoactive substance-induced anxiety disorder; F19.282 Other psychoactive substance dependence with psychoactive substance-induced sleep disorder; F31.9 Bipolar disorder, unspecified; F41.8 Other specified anxiety disorders; I10 Essential (primary) hypertension; J45.909 Unspecified asthma, uncomplicated; K21.9 Gastro-esophageal reflux disease without esophagitis; H91.91 Unspecified hearing loss, right ear; R63.4 Abnormal weight loss; Z68.21 Body mass index [BMI] 21.0-21.9, adult; Z91.410 Personal history of adult physical and sexual abuse
CPT/HCPCS: 36415; 80053; 82962; 86780; C9803; U0003; U0005

== ENCOUNTER 2021-03-15 13:36 | Inpatient (IN) | payer OTHER ==
[2021-03-15] MEDS ORDERED: ACETAMINOPHEN 325 MG TABLET (FP) PO PRN ×2 (14:46)
[2021-03-15] MEDS ORDERED: chlordiazePOXIDE HCL 25 MG CAPSULE PO PRN (14:46)
[2021-03-15] MEDS ORDERED: MAG HYDROX/AL HYDROX/SIMETH 30 ML UNIT-DOSE CUP PO PRN (14:46)
[2021-03-15] MEDS ORDERED: ONDANSETRON *ODT* 4 MG TABLET SL PRN (14:46)
[2021-03-15] MEDS ORDERED: NICOTINE 10 MG CARTRIDGE (INHALER) IH PRN (14:46)
[2021-03-15] MEDS ORDERED: BISMUTH SUBSALICYLATE 262 MG/15 ML BTL PO PRN (14:46)
[2021-03-15] MEDS ORDERED: MAGNESIUM CITRATE 300 ML BOTTLE PO PRN (14:46)
[2021-03-15] MEDS ORDERED: MENTHOL/PHENOL 1 EACH UD MM PRN (14:46)
[2021-03-15] MEDS ORDERED: IBUPROFEN 400 MG TABLET (FP) PO PRN (14:46)
[2021-03-15] MEDS ORDERED: guaiFENesin 200 MG/10 ML 10 ML UNIT-DOSE CUPS PO PRN (14:51)
[2021-03-15 15:35] VITALS: BMI 22.3
[2021-03-15] MEDS: chlordiazePOXIDE HCL 25 MG CAPSULE PO SCH ×2 (17:33→23:03)
[2021-03-15] MEDS: hydrOXYzine PAMOATE 25 MG CAPSULE (FP) PO SCH ×2 (17:35→22:31)
[2021-03-15] MEDS: MELATONIN 5 MG TABLETS PO SCH (22:30)
[2021-03-15] MEDS: THIAMINE HCL 100 MG TABLET (FP) PO SCH (22:31)
[2021-03-15] MEDS: METHOCARBAMOL 500 MG TABLET PO PRN (22:32)
[2021-03-16] MEDS: hydrOXYzine PAMOATE 25 MG CAPSULE (FP) PO SCH ×5 (05:38→22:18)
[2021-03-16] MEDS: chlordiazePOXIDE HCL 25 MG CAPSULE PO SCH ×4 (05:38→22:18)
[2021-03-16] MEDS: PRENATAL VITAMINS W/ FOLIC ACID TABLET (FP) PO SCH (10:08)
[2021-03-16] MEDS: METHOCARBAMOL 500 MG TABLET PO PRN (10:09)
[2021-03-16 10:17] LABS: HEMATOCRIT 35.2 % (32.4-45.2); HEMOGLOBIN 11.4 GM/dL (10.7-15.3); MCH 27.6 pg (25.7-33.7); MCHC 32.5 g/dl (32.0-36.0); MEAN PLT VOLUME 7.9 fl (7.5-11.1); PLATELET COUNT 205 10^3/uL (134-434); RBC 4.14 M/mm3 (3.60-5.2); RDW 17.8 % (11.6-15.6); WHITE BLOOD COUNT 2.9 K/mm3 (4.0-10.0)
[2021-03-16 10:30] LABS: CALCIUM 9.3 mg/dL (8.5-10.1)
[2021-03-16 10:31] LABS: ALBUMIN 3.3 g/dl (3.4-5.0); BLOOD UREA NITROGEN 14.6 mg/dL (7-18)
[2021-03-16 10:34] LABS: CREATININE 0.7 mg/dL (0.55-1.3)
[2021-03-16 10:35] LABS: TOT PROT 7.6 g/dl (6.4-8.2)
[2021-03-16 10:36] LABS: BILIRUBIN,TOTAL 0.4 mg/dL (0.2-1)
[2021-03-16] MEDS ORDERED: methaDONE HCL 10 MG TABLET PO ONE (11:12)
[2021-03-16] MEDS ORDERED: methaDONE 40 MG, methaDONE 30 MG PO ONE (11:19)
[2021-03-16] MEDS ORDERED: methaDONE HCL 10 MG TABLET ONE (11:30)
[2021-03-16] MEDS ORDERED: methaDONE HCL 40 MG DISPERSABLE TABLET ONE (11:31)
[2021-03-16] MEDS: traZODone HCL 50 MG TABLET (FP) PO SCH (22:18)
[2021-03-16] MEDS: THIAMINE HCL 100 MG TABLET (FP) PO SCH (22:18)
[2021-03-16] MEDS: MELATONIN 5 MG TABLETS PO SCH (22:18)
[2021-03-17] MEDS ORDERED: methaDONE HCL 10 MG TABLET ONE (04:30)
[2021-03-17] MEDS ORDERED: methaDONE HCL 40 MG DISPERSABLE TABLET ONE (04:31)
[2021-03-17] MEDS: chlordiazePOXIDE HCL 25 MG CAPSULE PO SCH ×4 (05:55→22:38)
[2021-03-17] MEDS: hydrOXYzine PAMOATE 25 MG CAPSULE (FP) PO SCH ×5 (05:56→22:38)
[2021-03-17] MEDS: methaDONE 40 MG, methaDONE 30 MG PO SCH (05:56)
[2021-03-17] MEDS ORDERED: methaDONE HCL 10 MG TABLET PO SCH (06:00)
[2021-03-17] MEDS: MAGNESIUM HYDROX 2400MG/30ML ORAL SUSPENSION 30 ML CUP PO PRN (06:08)
[2021-03-17] MEDS: METHOCARBAMOL 500 MG TABLET PO PRN (07:46)
[2021-03-17] MEDS: PRENATAL VITAMINS W/ FOLIC ACID TABLET (FP) PO SCH (10:42)
[2021-03-17] MEDS ORDERED: ALBUTEROL SO4 2.5/IPRATROPIUM 0.5 INH SOL 3 ML VIAL.NEB. NEB ONE (19:19)
[2021-03-17] MEDS: THIAMINE HCL 100 MG TABLET (FP) PO SCH (22:38)
[2021-03-17] MEDS: traZODone HCL 50 MG TABLET (FP) PO SCH (22:38)
[2021-03-17] MEDS: MELATONIN 5 MG TABLETS PO SCH (22:38)
[2021-03-17] MEDS: ALBUTEROL SO4 HFA INHALER IH PRN (22:38)
[2021-03-18] MEDS ORDERED: chlordiazePOXIDE HCL 10 MG CAPSULE PO PRN
[2021-03-18] MEDS ORDERED: methaDONE HCL 10 MG TABLET ONE (03:25)
[2021-03-18] MEDS ORDERED: methaDONE HCL 40 MG DISPERSABLE TABLET ONE (03:25)
[2021-03-18] MEDS: chlordiazePOXIDE HCL 10 MG CAPSULE PO SCH ×4 (06:09→22:07)
[2021-03-18] MEDS: hydrOXYzine PAMOATE 25 MG CAPSULE (FP) PO SCH ×5 (06:09→22:09)
[2021-03-18] MEDS: methaDONE 40 MG, methaDONE 30 MG PO SCH (06:11)
[2021-03-18] MEDS: PRENATAL VITAMINS W/ FOLIC ACID TABLET (FP) PO SCH (10:26)
[2021-03-18] MEDS: MAGNESIUM HYDROX 2400MG/30ML ORAL SUSPENSION 30 ML CUP PO PRN (10:28)
[2021-03-18 13:57] LABS: HEMATOCRIT 37.5 % (32.4-45.2); HEMOGLOBIN 12.4 GM/dL (10.7-15.3); MCH 28.1 pg (25.7-33.7); MCHC 33.2 g/dl (32.0-36.0); MEAN CELL VOLUME 84.7 fl (80-96); MEAN PLT VOLUME 8.1 fl (7.5-11.1); PLATELET COUNT 174 10^3/uL (134-434); RBC 4.42 M/mm3 (3.60-5.2); RDW 17.5 % (11.6-15.6); WHITE BLOOD COUNT 3.3 K/mm3 (4.0-10.0)
[2021-03-18 14:48] LABS: ANISOCYTOSIS 0; HELMET CELLS 0; HOWELL-JOLLY BODIES 0; MACROCYTOSIS 0; OVALOCYTE 0; PLATELET ESTIMATE NORMAL; ROULEAU 0; SICKELED CELLS 0; TARGET CELLS 0; TEAR DROP CELLS 0; TOXIC GRANULATION 0
[2021-03-18] MEDS: MELATONIN 5 MG TABLETS PO SCH (22:07)
[2021-03-18] MEDS: THIAMINE HCL 100 MG TABLET (FP) PO SCH (22:07)
[2021-03-18] MEDS: traZODone HCL 50 MG TABLET (FP) PO SCH (22:07)
[2021-03-19] MEDS ORDERED: methaDONE HCL 40 MG DISPERSABLE TABLET ONE (04:14)
[2021-03-19] MEDS ORDERED: methaDONE HCL 10 MG TABLET ONE (04:14)
[2021-03-19] MEDS: methaDONE 40 MG, methaDONE 30 MG PO SCH (06:17)
[2021-03-19] MEDS: chlordiazePOXIDE HCL 10 MG CAPSULE PO SCH ×2 (06:18→17:46)
[2021-03-19] MEDS: hydrOXYzine PAMOATE 25 MG CAPSULE (FP) PO SCH ×5 (06:18→22:48)
[2021-03-19] MEDS: PRENATAL VITAMINS W/ FOLIC ACID TABLET (FP) PO SCH (10:40)
[2021-03-19] MEDS ORDERED: chlordiazePOXIDE 5 MG CAPSULE PO ONE (11:00)
[2021-03-19] MEDS: METHOCARBAMOL 500 MG TABLET PO PRN (18:46)
[2021-03-19] MEDS: ALBUTEROL SO4 HFA INHALER IH PRN (22:47)
[2021-03-19] MEDS: traZODone HCL 50 MG TABLET (FP) PO SCH (22:48)
[2021-03-19] MEDS: MELATONIN 5 MG TABLETS PO SCH (22:48)
[2021-03-19] MEDS: THIAMINE HCL 100 MG TABLET (FP) PO SCH (22:49)
[2021-03-20] MEDS ORDERED: methaDONE HCL 10 MG TABLET ONE (04:21)
[2021-03-20] MEDS ORDERED: methaDONE HCL 40 MG DISPERSABLE TABLET ONE (04:21)
[2021-03-20] MEDS ORDERED: chlordiazePOXIDE HCL 10 MG CAPSULE PO ONE (05:00)
[2021-03-20] MEDS: methaDONE 40 MG, methaDONE 30 MG PO SCH (06:03)
[2021-03-20] MEDS: hydrOXYzine PAMOATE 25 MG CAPSULE (FP) PO SCH ×3 (06:03→13:36)
[2021-03-20] MEDS: PRENATAL VITAMINS W/ FOLIC ACID TABLET (FP) PO SCH (10:37)
[2021-03-20] MEDS ORDERED: NICOTINE 21 MG/24 HOURS TOPICAL PATCH TD SCH (12:10)
[2021-03-20 13:19] VITALS: BP 110/62; PULSE 87; TEMP 97.8
== END 2021-03-20 13:53 | disposition other institution (70) | DRG 773 ==
LOC: YASAS 13:36 → Y6N 16:11
PROVIDERS: ADMIT Allergy & Immunology; ATTEND Allergy & Immunology
PROC: HZ2ZZZZ Detoxification Services for Substance Abuse Treatment (ICD-10-PCS; principal; 2021-03-15)
DX: F10.230 Alcohol dependence with withdrawal, uncomplicated (principal); F11.20 Opioid dependence, uncomplicated; F14.20 Cocaine dependence, uncomplicated; F17.213 Nicotine dependence, cigarettes, with withdrawal; F10.280 Alcohol dependence with alcohol-induced anxiety disorder; F19.282 Other psychoactive substance dependence with psychoactive substance-induced sleep disorder; F34.1 Dysthymic disorder; Z21 Asymptomatic human immunodeficiency virus [HIV] infection status; I10 Essential (primary) hypertension; J45.20 Mild intermittent asthma, uncomplicated; K21.9 Gastro-esophageal reflux disease without esophagitis; H91.91 Unspecified hearing loss, right ear; D72.819 Decreased white blood cell count, unspecified; R63.4 Abnormal weight loss; Z68.22 Body mass index [BMI] 22.0-22.9, adult; Z91.410 Personal history of adult physical and sexual abuse
CPT/HCPCS: 36415; 80053; 82962; 85025; 85027; 86780; C9803; U0003; U0005

== ENCOUNTER 2021-03-20 14:21 | Inpatient (IN) | payer OTHER ==
[2021-03-20] MEDS ORDERED: MENTHOL/PHENOL 1 EACH UD MM PRN (15:12)
[2021-03-20] MEDS ORDERED: LOPERAMIDE HCL 2 MG CAPSULE PO PRN (15:12)
[2021-03-20] MEDS ORDERED: MAGNESIUM CITRATE 300 ML BOTTLE PO PRN (15:12)
[2021-03-20] MEDS ORDERED: guaiFENesin 200 MG/10 ML 10 ML UNIT-DOSE CUPS PO PRN (15:12)
[2021-03-20] MEDS ORDERED: P-EPHED 60MG/TRIPROLIDI 2.5MG TABLET PO PRN (15:12)
[2021-03-20] MEDS: MAG HYDROX/AL HYDROX/SIMETH 30 ML UNIT-DOSE CUP PO PRN (19:42)
[2021-03-20] MEDS: MELATONIN 5 MG TABLETS PO SCH (21:42)
[2021-03-20] MEDS: hydrOXYzine PAMOATE 25 MG CAPSULE (FP) PO PRN (21:42)
[2021-03-20] MEDS: THIAMINE HCL 100 MG TABLET (FP) PO SCH (21:42)
[2021-03-20] MEDS: traZODone HCL 50 MG TABLET (FP) PO SCH (21:42)
[2021-03-21] MEDS ORDERED: methaDONE HCL 10 MG TABLET PO SCH (06:00)
[2021-03-21] MEDS: NICOTINE 10 MG CARTRIDGE (INHALER) IH PRN (06:30)
[2021-03-21] MEDS: ACETAMINOPHEN 325 MG TABLET (FP) PO PRN (06:34)
[2021-03-21] MEDS ORDERED: methaDONE HCL 10 MG TABLET ONE (10:12)
[2021-03-21] MEDS ORDERED: methaDONE HCL 40 MG DISPERSABLE TABLET ONE (10:12)
[2021-03-21] MEDS: methaDONE 40 MG, methaDONE 30 MG PO SCH (10:36)
[2021-03-21] MEDS: PRENATAL VITAMINS W/ FOLIC ACID TABLET (FP) PO SCH (10:37)
[2021-03-21] MEDS: FLUoxetine HCL 20 MG CAPSULE PO SCH (10:37)
[2021-03-21] MEDS: NICOTINE 7 MG/24 HOURS TOPICAL PATCH TD SCH (10:38)
[2021-03-21] MEDS: ALBUTEROL SO4 HFA INHALER IH PRN ×2 (10:40→21:49)
[2021-03-21] MEDS: traZODone HCL 50 MG TABLET (FP) PO SCH (21:49)
[2021-03-21] MEDS: THIAMINE HCL 100 MG TABLET (FP) PO SCH (21:49)
[2021-03-21] MEDS: MELATONIN 5 MG TABLETS PO SCH (21:49)
[2021-03-21] MEDS: OLANZapine 10 MG TABLET PO SCH (22:24)
[2021-03-22] MEDS ORDERED: methaDONE HCL 40 MG DISPERSABLE TABLET ONE (02:48)
[2021-03-22] MEDS ORDERED: methaDONE HCL 10 MG TABLET ONE (02:48)
[2021-03-22] MEDS: methaDONE 40 MG, methaDONE 30 MG PO SCH (06:57)
[2021-03-22] MEDS: PRENATAL VITAMINS W/ FOLIC ACID TABLET (FP) PO SCH (10:27)
[2021-03-22] MEDS: FLUoxetine HCL 20 MG CAPSULE PO SCH (10:28)
[2021-03-22] MEDS: NICOTINE 7 MG/24 HOURS TOPICAL PATCH TD SCH (10:28)
[2021-03-22] MEDS: MELATONIN 5 MG TABLETS PO SCH (21:38)
[2021-03-22] MEDS: OLANZapine 10 MG TABLET PO SCH (21:38)
[2021-03-22] MEDS: traZODone HCL 50 MG TABLET (FP) PO SCH (21:38)
[2021-03-22] MEDS: THIAMINE HCL 100 MG TABLET (FP) PO SCH (21:38)
[2021-03-23] MEDS ORDERED: methaDONE HCL 10 MG TABLET ONE (02:59)
[2021-03-23] MEDS ORDERED: methaDONE HCL 40 MG DISPERSABLE TABLET ONE (02:59)
[2021-03-23] MEDS: methaDONE 40 MG, methaDONE 30 MG PO SCH (06:36)
[2021-03-23] MEDS: FLUoxetine HCL 20 MG CAPSULE PO SCH (10:59)
[2021-03-23] MEDS: PRENATAL VITAMINS W/ FOLIC ACID TABLET (FP) PO SCH (10:59)
[2021-03-23] MEDS: NICOTINE 7 MG/24 HOURS TOPICAL PATCH TD SCH (11:00)
[2021-03-23] MEDS: NICOTINE 10 MG CARTRIDGE (INHALER) IH PRN (11:00)
[2021-03-23] MEDS: hydrOXYzine PAMOATE 25 MG CAPSULE (FP) PO PRN ×2 (11:01→21:45)
[2021-03-23] MEDS: OLANZapine 10 MG TABLET PO SCH (21:45)
[2021-03-23] MEDS: THIAMINE HCL 100 MG TABLET (FP) PO SCH (21:45)
[2021-03-23] MEDS: traZODone HCL 50 MG TABLET (FP) PO SCH (21:45)
[2021-03-23] MEDS: MELATONIN 5 MG TABLETS PO SCH (21:45)
[2021-03-24] MEDS ORDERED: methaDONE HCL 10 MG TABLET ONE (05:48)
[2021-03-24] MEDS ORDERED: methaDONE HCL 40 MG DISPERSABLE TABLET ONE (05:48)
[2021-03-24] MEDS: methaDONE 40 MG, methaDONE 30 MG PO SCH (06:02)
[2021-03-24] MEDS: IBUPROFEN 400 MG TABLET (FP) PO PRN ×2 (06:04→16:55)
[2021-03-24] MEDS: hydrOXYzine PAMOATE 25 MG CAPSULE (FP) PO PRN ×3 (10:20→22:16)
[2021-03-24] MEDS: FLUoxetine HCL 20 MG CAPSULE PO SCH (10:20)
[2021-03-24] MEDS: PRENATAL VITAMINS W/ FOLIC ACID TABLET (FP) PO SCH (10:20)
[2021-03-24] MEDS: NICOTINE 7 MG/24 HOURS TOPICAL PATCH TD SCH (10:21)
[2021-03-24] MEDS: NICOTINE 10 MG CARTRIDGE (INHALER) IH PRN (10:22)
[2021-03-24] MEDS: MELATONIN 5 MG TABLETS PO SCH (22:16)
[2021-03-24] MEDS: THIAMINE HCL 100 MG TABLET (FP) PO SCH (22:16)
[2021-03-24] MEDS: OLANZapine 10 MG TABLET PO SCH (22:16)
[2021-03-24] MEDS: traZODone HCL 50 MG TABLET (FP) PO SCH (22:16)
[2021-03-25] MEDS ORDERED: methaDONE HCL 40 MG DISPERSABLE TABLET ONE (03:34)
[2021-03-25] MEDS ORDERED: methaDONE HCL 10 MG TABLET ONE (03:34)
[2021-03-25] MEDS: IBUPROFEN 400 MG TABLET (FP) PO PRN ×2 (05:56→21:29)
[2021-03-25] MEDS: methaDONE 40 MG, methaDONE 30 MG PO SCH (05:57)
[2021-03-25] MEDS: ALBUTEROL SO4 HFA INHALER IH PRN (10:03)
[2021-03-25] MEDS: PRENATAL VITAMINS W/ FOLIC ACID TABLET (FP) PO SCH (10:04)
[2021-03-25] MEDS: FLUoxetine HCL 20 MG CAPSULE PO SCH (10:04)
[2021-03-25] MEDS: NICOTINE 7 MG/24 HOURS TOPICAL PATCH TD SCH (10:04)
[2021-03-25] MEDS: hydrOXYzine PAMOATE 25 MG CAPSULE (FP) PO PRN ×2 (10:05→21:29)
[2021-03-25] MEDS: MAG HYDROX/AL HYDROX/SIMETH 30 ML UNIT-DOSE CUP PO PRN (10:06)
[2021-03-25] MEDS: traZODone HCL 50 MG TABLET (FP) PO SCH (21:29)
[2021-03-25] MEDS: THIAMINE HCL 100 MG TABLET (FP) PO SCH (21:29)
[2021-03-25] MEDS: MELATONIN 5 MG TABLETS PO SCH (21:29)
[2021-03-25] MEDS: OLANZapine 10 MG TABLET PO SCH (22:36)
[2021-03-26] MEDS ORDERED: methaDONE HCL 10 MG TABLET ONE (04:40)
[2021-03-26] MEDS ORDERED: methaDONE HCL 40 MG DISPERSABLE TABLET ONE (04:40)
[2021-03-26] MEDS: IBUPROFEN 400 MG TABLET (FP) PO PRN ×2 (06:01→17:12)
[2021-03-26] MEDS: methaDONE 40 MG, methaDONE 30 MG PO SCH (06:02)
[2021-03-26] MEDS: hydrOXYzine PAMOATE 25 MG CAPSULE (FP) PO PRN ×2 (10:33→22:00)
[2021-03-26] MEDS: PRENATAL VITAMINS W/ FOLIC ACID TABLET (FP) PO SCH (10:34)
[2021-03-26] MEDS: FLUoxetine HCL 20 MG CAPSULE PO SCH (10:34)
[2021-03-26] MEDS: NICOTINE 7 MG/24 HOURS TOPICAL PATCH TD SCH (10:35)
[2021-03-26] MEDS: NICOTINE 10 MG CARTRIDGE (INHALER) IH PRN (13:59)
[2021-03-26] MEDS: OLANZapine 10 MG TABLET PO SCH (22:00)
[2021-03-26] MEDS: MELATONIN 5 MG TABLETS PO SCH (22:00)
[2021-03-26] MEDS: traZODone HCL 50 MG TABLET (FP) PO SCH (22:00)
[2021-03-26] MEDS: THIAMINE HCL 100 MG TABLET (FP) PO SCH (22:00)
[2021-03-27] MEDS ORDERED: methaDONE HCL 40 MG DISPERSABLE TABLET ONE (02:58)
[2021-03-27] MEDS ORDERED: methaDONE HCL 10 MG TABLET ONE (02:58)
[2021-03-27] MEDS: IBUPROFEN 400 MG TABLET (FP) PO PRN ×2 (06:03→19:15)
[2021-03-27] MEDS: methaDONE 40 MG, methaDONE 30 MG PO SCH (06:04)
[2021-03-27] MEDS: NICOTINE 7 MG/24 HOURS TOPICAL PATCH TD SCH (10:28)
[2021-03-27] MEDS: PRENATAL VITAMINS W/ FOLIC ACID TABLET (FP) PO SCH (10:28)
[2021-03-27] MEDS: FLUoxetine HCL 20 MG CAPSULE PO SCH (10:29)
[2021-03-27] MEDS: hydrOXYzine PAMOATE 25 MG CAPSULE (FP) PO PRN ×2 (10:29→21:36)
[2021-03-27] MEDS: MELATONIN 5 MG TABLETS PO SCH (21:36)
[2021-03-27] MEDS: THIAMINE HCL 100 MG TABLET (FP) PO SCH (21:36)
[2021-03-27] MEDS: traZODone HCL 50 MG TABLET (FP) PO SCH (21:36)
[2021-03-27] MEDS: OLANZapine 10 MG TABLET PO SCH (21:37)
[2021-03-27] MEDS: NICOTINE POLACRILEX 4 MG GUM BUC PRN (21:38)
[2021-03-27] MEDS: ALBUTEROL SO4 HFA INHALER IH PRN (23:17)
[2021-03-28] MEDS: methaDONE 40 MG, methaDONE 30 MG PO SCH (06:00)
[2021-03-28] MEDS ORDERED: methaDONE HCL 10 MG TABLET ONE (06:00)
[2021-03-28] MEDS ORDERED: methaDONE HCL 40 MG DISPERSABLE TABLET ONE (06:00)
[2021-03-28] MEDS: IBUPROFEN 400 MG TABLET (FP) PO PRN ×2 (06:02→17:43)
[2021-03-28] MEDS: ALBUTEROL SO4 HFA INHALER IH PRN ×2 (09:39→20:30)
[2021-03-28] MEDS: NICOTINE 7 MG/24 HOURS TOPICAL PATCH TD SCH (09:40)
[2021-03-28] MEDS: FLUoxetine HCL 20 MG CAPSULE PO SCH (09:40)
[2021-03-28] MEDS: PRENATAL VITAMINS W/ FOLIC ACID TABLET (FP) PO SCH (09:40)
[2021-03-28] MEDS: hydrOXYzine PAMOATE 25 MG CAPSULE (FP) PO PRN ×2 (09:40→21:36)
[2021-03-28] MEDS: traZODone HCL 50 MG TABLET (FP) PO SCH (21:36)
[2021-03-28] MEDS: MAGNESIUM HYDROX 2400MG/30ML ORAL SUSPENSION 30 ML CUP PO PRN (21:36)
[2021-03-28] MEDS: THIAMINE HCL 100 MG TABLET (FP) PO SCH (21:36)
[2021-03-28] MEDS: MELATONIN 5 MG TABLETS PO SCH (21:37)
[2021-03-29] MEDS ORDERED: methaDONE HCL 40 MG DISPERSABLE TABLET ONE (02:43)
[2021-03-29] MEDS ORDERED: methaDONE HCL 10 MG TABLET ONE (02:43)
[2021-03-29] MEDS: IBUPROFEN 400 MG TABLET (FP) PO PRN (06:21)
[2021-03-29] MEDS: methaDONE 40 MG, methaDONE 30 MG PO SCH (06:21)
[2021-03-29] MEDS: NICOTINE POLACRILEX 4 MG GUM BUC PRN (10:05)
[2021-03-29] MEDS: PRENATAL VITAMINS W/ FOLIC ACID TABLET (FP) PO SCH (10:05)
[2021-03-29] MEDS: NICOTINE 7 MG/24 HOURS TOPICAL PATCH TD SCH (10:05)
[2021-03-29] MEDS: hydrOXYzine PAMOATE 25 MG CAPSULE (FP) PO PRN ×2 (10:06→21:31)
[2021-03-29] MEDS: ALBUTEROL SO4 HFA INHALER IH PRN ×2 (10:06→13:25)
[2021-03-29] MEDS: traZODone HCL 50 MG TABLET (FP) PO SCH (21:30)
[2021-03-29] MEDS: THIAMINE HCL 100 MG TABLET (FP) PO SCH (21:30)
[2021-03-29] MEDS: MELATONIN 5 MG TABLETS PO SCH (21:30)
[2021-03-29] MEDS: ACETAMINOPHEN 325 MG TABLET (FP) PO PRN (21:31)
[2021-03-30] MEDS ORDERED: methaDONE HCL 10 MG TABLET ONE (03:03)
[2021-03-30] MEDS ORDERED: methaDONE HCL 40 MG DISPERSABLE TABLET ONE (03:03)
[2021-03-30] MEDS: methaDONE 40 MG, methaDONE 30 MG PO SCH (06:00)
[2021-03-30] MEDS: IBUPROFEN 400 MG TABLET (FP) PO PRN (06:00)
[2021-03-30] MEDS: PRENATAL VITAMINS W/ FOLIC ACID TABLET (FP) PO SCH (10:18)
[2021-03-30] MEDS: ACETAMINOPHEN 325 MG TABLET (FP) PO PRN ×2 (10:19→21:28)
[2021-03-30] MEDS: hydrOXYzine PAMOATE 25 MG CAPSULE (FP) PO PRN ×2 (10:19→21:28)
[2021-03-30] MEDS: NICOTINE 7 MG/24 HOURS TOPICAL PATCH TD SCH (10:21)
[2021-03-30] MEDS: NICOTINE POLACRILEX 4 MG GUM BUC PRN (10:22)
[2021-03-30] MEDS: ALBUTEROL SO4 HFA INHALER IH PRN (13:43)
[2021-03-30] MEDS: THIAMINE HCL 100 MG TABLET (FP) PO SCH (21:28)
[2021-03-30] MEDS: MELATONIN 5 MG TABLETS PO SCH (21:28)
[2021-03-30] MEDS: traZODone HCL 50 MG TABLET (FP) PO SCH (21:28)
[2021-03-31] MEDS ORDERED: methaDONE HCL 40 MG DISPERSABLE TABLET ONE (05:14)
[2021-03-31] MEDS ORDERED: methaDONE HCL 10 MG TABLET ONE (05:14)
[2021-03-31] MEDS: ACETAMINOPHEN 325 MG TABLET (FP) PO PRN ×2 (06:02→10:20)
[2021-03-31] MEDS: methaDONE 40 MG, methaDONE 30 MG PO SCH (06:02)
[2021-03-31] MEDS: MAGNESIUM HYDROX 2400MG/30ML ORAL SUSPENSION 30 ML CUP PO PRN (06:36)
[2021-03-31] MEDS: ALBUTEROL SO4 HFA INHALER IH PRN (07:18)
[2021-03-31] MEDS: PRENATAL VITAMINS W/ FOLIC ACID TABLET (FP) PO SCH (10:18)
[2021-03-31] MEDS: NICOTINE 7 MG/24 HOURS TOPICAL PATCH TD SCH (10:18)
[2021-03-31] MEDS: hydrOXYzine PAMOATE 25 MG CAPSULE (FP) PO PRN (10:18)
[2021-03-31] MEDS: NICOTINE POLACRILEX 4 MG GUM BUC PRN (10:20)
[2021-03-31] MEDS: traZODone HCL 50 MG TABLET (FP) PO SCH (21:36)
[2021-03-31] MEDS: IBUPROFEN 400 MG TABLET (FP) PO PRN (21:36)
[2021-03-31] MEDS: MELATONIN 5 MG TABLETS PO SCH (21:36)
[2021-03-31] MEDS: THIAMINE HCL 100 MG TABLET (FP) PO SCH (21:36)
[2021-04-01] MEDS ORDERED: methaDONE HCL 10 MG TABLET ONE (02:50)
[2021-04-01] MEDS ORDERED: methaDONE HCL 40 MG DISPERSABLE TABLET ONE (02:50)
[2021-04-01] MEDS: IBUPROFEN 400 MG TABLET (FP) PO PRN ×2 (06:05→14:34)
[2021-04-01] MEDS: methaDONE 40 MG, methaDONE 30 MG PO SCH (06:05)
[2021-04-01] MEDS: hydrOXYzine PAMOATE 25 MG CAPSULE (FP) PO PRN ×2 (10:02→14:34)
[2021-04-01] MEDS: NICOTINE 7 MG/24 HOURS TOPICAL PATCH TD SCH (10:02)
[2021-04-01] MEDS: PRENATAL VITAMINS W/ FOLIC ACID TABLET (FP) PO SCH (10:02)
[2021-04-01] MEDS: ACETAMINOPHEN 325 MG TABLET (FP) PO PRN (10:03)
[2021-04-01] MEDS: NICOTINE POLACRILEX 4 MG GUM BUC PRN (10:04)
[2021-04-01] MEDS: ALBUTEROL SO4 HFA INHALER IH PRN (13:44)
[2021-04-01] MEDS: MAG HYDROX/AL HYDROX/SIMETH 30 ML UNIT-DOSE CUP PO PRN (21:34)
[2021-04-01] MEDS: traZODone HCL 50 MG TABLET (FP) PO SCH (21:34)
[2021-04-01] MEDS: MELATONIN 5 MG TABLETS PO SCH (21:34)
[2021-04-01] MEDS: THIAMINE HCL 100 MG TABLET (FP) PO SCH (21:35)
[2021-04-02] MEDS ORDERED: methaDONE HCL 10 MG TABLET ONE (02:47)
[2021-04-02] MEDS ORDERED: methaDONE HCL 40 MG DISPERSABLE TABLET ONE (02:47)
[2021-04-02] MEDS: IBUPROFEN 400 MG TABLET (FP) PO PRN (05:58)
[2021-04-02] MEDS: methaDONE 40 MG, methaDONE 30 MG PO SCH (05:59)
[2021-04-02] MEDS: NICOTINE 7 MG/24 HOURS TOPICAL PATCH TD SCH (10:15)
[2021-04-02] MEDS: PRENATAL VITAMINS W/ FOLIC ACID TABLET (FP) PO SCH (10:15)
[2021-04-02] MEDS: ACETAMINOPHEN 325 MG TABLET (FP) PO PRN (10:16)
[2021-04-02] MEDS: hydrOXYzine PAMOATE 25 MG CAPSULE (FP) PO PRN ×2 (10:16→21:44)
[2021-04-02] MEDS: ALBUTEROL SO4 HFA INHALER IH PRN ×2 (11:04→21:44)
[2021-04-02] MEDS: traZODone HCL 50 MG TABLET (FP) PO SCH (21:44)
[2021-04-02] MEDS: MELATONIN 5 MG TABLETS PO SCH (21:44)
[2021-04-02] MEDS: THIAMINE HCL 100 MG TABLET (FP) PO SCH (21:44)
[2021-04-03] MEDS ORDERED: methaDONE HCL 10 MG TABLET ONE (05:03)
[2021-04-03] MEDS ORDERED: methaDONE HCL 40 MG DISPERSABLE TABLET ONE (05:03)
[2021-04-03] MEDS: IBUPROFEN 400 MG TABLET (FP) PO PRN ×2 (05:55→21:37)
[2021-04-03] MEDS: methaDONE 40 MG, methaDONE 30 MG PO SCH (05:55)
[2021-04-03] MEDS: PRENATAL VITAMINS W/ FOLIC ACID TABLET (FP) PO SCH (10:18)
[2021-04-03] MEDS: hydrOXYzine PAMOATE 25 MG CAPSULE (FP) PO PRN ×3 (10:20→21:37)
[2021-04-03] MEDS: ACETAMINOPHEN 325 MG TABLET (FP) PO PRN (10:20)
[2021-04-03] MEDS: NICOTINE 7 MG/24 HOURS TOPICAL PATCH TD SCH (10:21)
[2021-04-03] MEDS: NICOTINE POLACRILEX 4 MG GUM BUC PRN (10:22)
[2021-04-03] MEDS: ALBUTEROL SO4 HFA INHALER IH PRN (13:40)
[2021-04-03] MEDS: traZODone HCL 50 MG TABLET (FP) PO SCH (21:37)
[2021-04-03] MEDS: MELATONIN 5 MG TABLETS PO SCH (21:37)
[2021-04-03] MEDS: THIAMINE HCL 100 MG TABLET (FP) PO SCH (21:37)
[2021-04-03] MEDS: MAGNESIUM HYDROX 2400MG/30ML ORAL SUSPENSION 30 ML CUP PO PRN (21:39)
[2021-04-04] MEDS ORDERED: methaDONE 40 MG, methaDONE 30 MG PO SCH (06:00)
[2021-04-04] MEDS ORDERED: methaDONE HCL 40 MG DISPERSABLE TABLET ONE (06:03)
[2021-04-04] MEDS ORDERED: methaDONE HCL 10 MG TABLET ONE (06:03)
[2021-04-04] MEDS: IBUPROFEN 400 MG TABLET (FP) PO PRN (06:04)
[2021-04-04 07:23] VITALS: BP 129/82; PULSE 79; TEMP 97
[2021-04-04] MEDS: NICOTINE 7 MG/24 HOURS TOPICAL PATCH TD SCH (09:21)
[2021-04-04] MEDS: PRENATAL VITAMINS W/ FOLIC ACID TABLET (FP) PO SCH (09:22)
[2021-04-04] MEDS: hydrOXYzine PAMOATE 25 MG CAPSULE (FP) PO PRN (09:22)
[2021-04-04] MEDS: NICOTINE POLACRILEX 4 MG GUM BUC PRN (09:23)
== END 2021-04-04 09:50 | disposition home or self-care (01) | DRG 773 ==
LOC: YASAS 14:21 → Y5N 14:22
PROVIDERS: ADMIT Allergy & Immunology; ATTEND Allergy & Immunology
PROC: HZ2ZZZZ Detoxification Services for Substance Abuse Treatment (ICD-10-PCS; principal; 2021-03-20)
DX: F10.20 Alcohol dependence, uncomplicated (principal); F11.20 Opioid dependence, uncomplicated; F14.20 Cocaine dependence, uncomplicated; F17.210 Nicotine dependence, cigarettes, uncomplicated; F19.280 Other psychoactive substance dependence with psychoactive substance-induced anxiety disorder; F19.282 Other psychoactive substance dependence with psychoactive substance-induced sleep disorder; F32.9 Major depressive disorder, single episode, unspecified; Z21 Asymptomatic human immunodeficiency virus [HIV] infection status; I10 Essential (primary) hypertension; J45.20 Mild intermittent asthma, uncomplicated; K21.9 Gastro-esophageal reflux disease without esophagitis; H91.91 Unspecified hearing loss, right ear; R63.4 Abnormal weight loss; Z68.1 Body mass index [BMI] 19.9 or less, adult; Z91.14 Patient's other noncompliance with medication regimen
CPT/HCPCS: C9803; U0003; U0005

== ENCOUNTER 2021-04-25 10:36 | Inpatient (IN) | payer OTHER ==
[2021-04-25] MEDS ORDERED: MAGNESIUM CITRATE 300 ML BOTTLE PO PRN (11:21)
[2021-04-25] MEDS ORDERED: LORazepam 1 MG TABLET PO PRN (11:21)
[2021-04-25] MEDS ORDERED: ACETAMINOPHEN 325 MG TABLET (FP) PO PRN ×2 (11:21)
[2021-04-25] MEDS ORDERED: ONDANSETRON *ODT* 4 MG TABLET SL PRN (11:21)
[2021-04-25] MEDS ORDERED: IBUPROFEN 400 MG TABLET (FP) PO PRN (11:21)
[2021-04-25] MEDS ORDERED: BISMUTH SUBSALICYLATE 262 MG/15 ML BTL PO PRN (11:21)
[2021-04-25] MEDS ORDERED: MAGNESIUM HYDROX 2400MG/30ML ORAL SUSPENSION 30 ML CUP PO PRN (11:21)
[2021-04-25] MEDS ORDERED: NICOTINE 10 MG CARTRIDGE (INHALER) IH PRN (11:21)
[2021-04-25] MEDS ORDERED: LOPERAMIDE HCL 2 MG CAPSULE PO PRN (11:21)
[2021-04-25] MEDS ORDERED: MENTHOL/PHENOL 1 EACH UD MM PRN (11:21)
[2021-04-25] MEDS ORDERED: MAG HYDROX/AL HYDROX/SIMETH 30 ML UNIT-DOSE CUP PO PRN (11:21)
[2021-04-25 12:06] VITALS: BMI 22.6
[2021-04-25] MEDS: LORazepam 2 MG TABLET PO SCH ×3 (12:37→22:26)
[2021-04-25] MEDS: PRENATAL VITAMINS W/ FOLIC ACID TABLET (FP) PO SCH (12:39)
[2021-04-25] MEDS: NICOTINE 14 MG/24 HOURS TOPICAL PATCH TD SCH (12:39)
[2021-04-25] MEDS ORDERED: ALBUTEROL SO4 HFA INHALER IH PRN (14:43)
[2021-04-25] MEDS: hydrOXYzine PAMOATE 25 MG CAPSULE (FP) PO SCH ×3 (15:07→22:27)
[2021-04-25 15:30] LABS: HEMATOCRIT 34.8 % (32.4-45.2); HEMOGLOBIN 11.4 GM/dL (10.7-15.3); MCH 27.5 pg (25.7-33.7); MCHC 32.7 g/dl (32.0-36.0); MEAN CELL VOLUME 84.4 fl (80-96); MEAN PLT VOLUME 7.4 fl (7.5-11.1); PLATELET COUNT 219 10^3/uL (134-434); RBC 4.12 M/mm3 (3.60-5.2); RDW 18.4 % (11.6-15.6); WHITE BLOOD COUNT 4.6 K/mm3 (4.0-10.0)
[2021-04-25 15:47] LABS: BLOOD UREA NITROGEN 12.6 mg/dL (7-18)
[2021-04-25 15:50] LABS: CREATININE 0.8 mg/dL (0.55-1.3)
[2021-04-25 15:51] LABS: BILIRUBIN,TOTAL 0.6 mg/dL (0.2-1)
[2021-04-25 15:52] LABS: TOT PROT 8.2 g/dl (6.4-8.2)
[2021-04-25] MEDS: METHOCARBAMOL 500 MG TABLET PO PRN (22:26)
[2021-04-25] MEDS: THIAMINE HCL 100 MG TABLET (FP) PO SCH (22:27)
[2021-04-25] MEDS: MELATONIN 5 MG TABLETS PO SCH (22:27)
[2021-04-26] MEDS: LORazepam 2 MG TABLET PO SCH ×4 (05:53→22:09)
[2021-04-26] MEDS: hydrOXYzine PAMOATE 25 MG CAPSULE (FP) PO SCH ×5 (05:53→22:10)
[2021-04-26] MEDS: PRENATAL VITAMINS W/ FOLIC ACID TABLET (FP) PO SCH (10:15)
[2021-04-26] MEDS: NICOTINE 14 MG/24 HOURS TOPICAL PATCH TD SCH (10:16)
[2021-04-26] MEDS ORDERED: methaDONE HCL 10 MG TABLET PO SCH (11:00)
[2021-04-26] MEDS ORDERED: methaDONE HCL 10 MG TABLET ONE (11:26)
[2021-04-26] MEDS ORDERED: methaDONE HCL 40 MG DISPERSABLE TABLET ONE (11:27)
[2021-04-26] MEDS: methaDONE 40 MG, methaDONE 30 MG PO SCH (11:29)
[2021-04-26] MEDS: MELATONIN 5 MG TABLETS PO SCH (22:10)
[2021-04-26] MEDS: THIAMINE HCL 100 MG TABLET (FP) PO SCH (22:10)
[2021-04-26] MEDS: traZODone HCL 50 MG TABLET (FP) PO SCH (22:10)
[2021-04-27] MEDS ORDERED: methaDONE HCL 10 MG TABLET ONE (04:36)
[2021-04-27] MEDS ORDERED: methaDONE HCL 40 MG DISPERSABLE TABLET ONE (04:37)
[2021-04-27] MEDS: methaDONE 40 MG, methaDONE 30 MG PO SCH (06:22)
[2021-04-27] MEDS: LORazepam 1 MG TABLET PO SCH ×4 (06:22→22:10)
[2021-04-27] MEDS: hydrOXYzine PAMOATE 25 MG CAPSULE (FP) PO SCH ×5 (06:23→22:10)
[2021-04-27] MEDS: PRENATAL VITAMINS W/ FOLIC ACID TABLET (FP) PO SCH (10:26)
[2021-04-27] MEDS: ESCITALOPRAM OXALATE 10 MG TABLET PO SCH (10:26)
[2021-04-27] MEDS: NICOTINE 14 MG/24 HOURS TOPICAL PATCH TD SCH (10:54)
[2021-04-27 14:08] LABS: SARS-CoV-2 NAA Not Detected (Not Detected)
[2021-04-27] MEDS: METHOCARBAMOL 500 MG TABLET PO PRN (17:41)
[2021-04-27] MEDS: MELATONIN 5 MG TABLETS PO SCH (22:11)
[2021-04-27] MEDS: THIAMINE HCL 100 MG TABLET (FP) PO SCH (22:11)
[2021-04-27] MEDS: traZODone HCL 50 MG TABLET (FP) PO SCH (22:11)
[2021-04-28] MEDS ORDERED: LORazepam 0.5 MG TABLET PO PRN
[2021-04-28] MEDS ORDERED: methaDONE HCL 40 MG DISPERSABLE TABLET ONE (04:47)
[2021-04-28] MEDS ORDERED: methaDONE HCL 10 MG TABLET ONE (04:47)
[2021-04-28] MEDS: methaDONE 40 MG, methaDONE 30 MG PO SCH (06:32)
[2021-04-28] MEDS: LORazepam 0.5 MG TABLET PO SCH ×4 (06:33→22:16)
[2021-04-28] MEDS: hydrOXYzine PAMOATE 25 MG CAPSULE (FP) PO SCH ×5 (06:33→22:16)
[2021-04-28] MEDS: NICOTINE 14 MG/24 HOURS TOPICAL PATCH TD SCH (10:22)
[2021-04-28] MEDS: ESCITALOPRAM OXALATE 10 MG TABLET PO SCH (10:23)
[2021-04-28] MEDS: PRENATAL VITAMINS W/ FOLIC ACID TABLET (FP) PO SCH (10:23)
[2021-04-28] MEDS: traZODone HCL 50 MG TABLET (FP) PO SCH (22:16)
[2021-04-28] MEDS: MELATONIN 5 MG TABLETS PO SCH (22:16)
[2021-04-28] MEDS: THIAMINE HCL 100 MG TABLET (FP) PO SCH (22:16)
[2021-04-29] MEDS ORDERED: methaDONE HCL 10 MG TABLET ONE (04:42)
[2021-04-29] MEDS ORDERED: methaDONE HCL 40 MG DISPERSABLE TABLET ONE (04:43)
[2021-04-29] MEDS ORDERED: LORazepam 0.5 MG TABLET PO ONE (05:00)
[2021-04-29] MEDS: hydrOXYzine PAMOATE 25 MG CAPSULE (FP) PO SCH (05:35)
[2021-04-29] MEDS: methaDONE 40 MG, methaDONE 30 MG PO SCH (05:36)
[2021-04-29 08:42] VITALS: BP 123/83; PULSE 82; TEMP 98.1
== END 2021-04-29 09:12 | disposition home or self-care (01) | DRG 773 ==
LOC: YASAS 10:36 → Y3N 11:49
PROVIDERS: ADMIT Allergy & Immunology; ATTEND Allergy & Immunology
PROC: HZ2ZZZZ Detoxification Services for Substance Abuse Treatment (ICD-10-PCS; principal; 2021-04-25)
DX: F10.230 Alcohol dependence with withdrawal, uncomplicated (principal); F11.20 Opioid dependence, uncomplicated; F14.20 Cocaine dependence, uncomplicated; F17.210 Nicotine dependence, cigarettes, uncomplicated; F34.1 Dysthymic disorder; Z21 Asymptomatic human immunodeficiency virus [HIV] infection status; H91.91 Unspecified hearing loss, right ear; J45.20 Mild intermittent asthma, uncomplicated; K21.9 Gastro-esophageal reflux disease without esophagitis
CPT/HCPCS: 36415; 80053; 85027; 86780; 87811; C9803-CS; U0003; U0005

== ENCOUNTER 2021-07-09 08:37 | Inpatient (IN) | payer OTHER ==
[2021-07-09] MEDS ORDERED: ALBUTEROL SO4 HFA INHALER IH PRN (09:22)
[2021-07-09] MEDS ORDERED: MAGNESIUM CITRATE 300 ML BOTTLE PO PRN (09:23)
[2021-07-09] MEDS ORDERED: MAGNESIUM HYDROX 2400MG/30ML ORAL SUSPENSION 30 ML CUP PO PRN (09:23)
[2021-07-09] MEDS ORDERED: BENZOCAINE/MENTHOL (CHLORASEPTIC ) LOZENGE MM PRN (09:23)
[2021-07-09] MEDS ORDERED: BISMUTH SUBSALICYLATE 524 MG/30 ML PO PRN (09:23)
[2021-07-09] MEDS ORDERED: ACETAMINOPHEN 325 MG TABLET (FP) PO PRN ×2 (09:23)
[2021-07-09] MEDS ORDERED: METHOCARBAMOL 500 MG TABLET PO PRN (09:23)
[2021-07-09] MEDS ORDERED: LOPERAMIDE HCL 2 MG CAPSULE PO PRN (09:23)
[2021-07-09] MEDS ORDERED: MAG HYDROX/AL HYDROX/SIMETH 30 ML UNIT-DOSE CUP PO PRN (09:23)
[2021-07-09] MEDS ORDERED: MELATONIN 5 MG TABLETS PO PRN (09:23)
[2021-07-09] MEDS ORDERED: ONDANSETRON *ODT* 4 MG TABLET SL PRN (09:23)
[2021-07-09] MEDS ORDERED: DICYCLOMINE HCL 10 MG CAPSULE PO PRN (09:23)
[2021-07-09] MEDS ORDERED: NICOTINE POLACRILEX 2 MG GUM BUC PRN (09:23)
[2021-07-09] MEDS ORDERED: NICOTINE 7 MG/24 HOURS TOPICAL PATCH TD PRN (09:25)
[2021-07-09] MEDS ORDERED: diazePAM 5 MG TABLET PO PRN (09:25)
[2021-07-09 09:27] VITALS: BMI 22.3
[2021-07-09] MEDS ORDERED: diazePAM 5 MG TABLET PO SCH (11:00)
[2021-07-09] MEDS ORDERED: diazePAM 5 MG TABLET ONE (12:08)
[2021-07-09] MEDS ORDERED: LORazepam 1 MG TABLET PO PRN (12:12)
[2021-07-09] MEDS: PANTOPRAZOLE 40 MG TABLET PO SCH (12:58)
[2021-07-09] MEDS: ASPIRIN COATED 81 MG TABLET.EC PO SCH (12:58)
[2021-07-09] MEDS: PRENATAL VITAMINS W/ FOLIC ACID TABLET (FP) PO SCH (12:59)
[2021-07-09] MEDS: IBUPROFEN 400 MG TABLET (FP) PO PRN (18:13)
[2021-07-09] MEDS: LORazepam 2 MG TABLET PO SCH ×2 (18:15→22:20)
[2021-07-09] MEDS: THIAMINE HCL 100 MG TABLET (FP) PO SCH (22:20)
[2021-07-10] MEDS: hydrOXYzine PAMOATE 25 MG CAPSULE (FP) PO PRN (06:11)
[2021-07-10] MEDS: LORazepam 2 MG TABLET PO SCH ×4 (06:11→22:16)
[2021-07-10] MEDS: IBUPROFEN 400 MG TABLET (FP) PO PRN (06:14)
[2021-07-10] MEDS ORDERED: methaDONE HCL 10 MG TABLET PO ONE (09:51)
[2021-07-10] MEDS ORDERED: amLODIPine BESYLATE 5 MG TABLET (FP) PO SCH (10:00)
[2021-07-10] MEDS: PANTOPRAZOLE 40 MG TABLET PO SCH (10:22)
[2021-07-10] MEDS: ASPIRIN COATED 81 MG TABLET.EC PO SCH (10:22)
[2021-07-10] MEDS: PRENATAL VITAMINS W/ FOLIC ACID TABLET (FP) PO SCH (10:23)
[2021-07-10] MEDS ORDERED: traZODone HCL 50 MG TABLET (FP) PO SCH (22:00)
[2021-07-10] MEDS: THIAMINE HCL 100 MG TABLET (FP) PO SCH (22:16)
[2021-07-11] MEDS: LORazepam 1 MG TABLET PO SCH ×2 (05:24→10:20)
[2021-07-11] MEDS: hydrOXYzine PAMOATE 25 MG CAPSULE (FP) PO PRN (05:24)
[2021-07-11] MEDS ORDERED: diazePAM 5 MG TABLET PO SCH (06:00)
[2021-07-11] MEDS ORDERED: methaDONE HCL 40 MG DISPERSABLE TABLET PO SCH (07:30)
[2021-07-11] MEDS ORDERED: methaDONE 40 MG, methaDONE 30 MG PO SCH (08:10)
[2021-07-11] MEDS ORDERED: methaDONE HCL 10 MG TABLET ONE (08:35)
[2021-07-11] MEDS ORDERED: methaDONE HCL 40 MG DISPERSABLE TABLET ONE (08:36)
[2021-07-11 08:49] VITALS: BP 123/75; PULSE 64; TEMP 98.2
[2021-07-11] MEDS ORDERED: amLODIPine BESYLATE 2.5 MG TABLET (FP) PO SCH (10:00)
[2021-07-11] MEDS: PANTOPRAZOLE 40 MG TABLET PO SCH (10:19)
[2021-07-11] MEDS: ASPIRIN COATED 81 MG TABLET.EC PO SCH (10:19)
[2021-07-11] MEDS: PRENATAL VITAMINS W/ FOLIC ACID TABLET (FP) PO SCH (10:19)
[2021-07-11 12:21] LABS: HEMOGLOBIN 13.2 GM/dL (10.7-15.3); MCH 28.5 pg (25.7-33.7); MCHC 32.9 g/dl (32.0-36.0); MEAN CELL VOLUME 86.5 fl (80-96); MEAN PLT VOLUME 8.1 fl (7.5-11.1); PLATELET COUNT 261 10^3/uL (134-434); RBC 4.63 M/mm3 (3.60-5.2); RDW 17.1 % (11.6-15.6); WHITE BLOOD COUNT 3.7 K/mm3 (4.0-10.0)
[2021-07-11 12:22] LABS: CALCIUM 10.1 mg/dL (8.5-10.1)
[2021-07-11 12:25] LABS: ALBUMIN 3.7 g/dl (3.4-5.0)
[2021-07-11 12:26] LABS: CREATININE 0.8 mg/dL (0.55-1.3)
[2021-07-11 12:27] LABS: BILIRUBIN,TOTAL 0.4 mg/dL (0.2-1)
[2021-07-12] MEDS ORDERED: LORazepam 0.5 MG TABLET PO PRN
[2021-07-12] MEDS ORDERED: LORazepam 0.5 MG TABLET PO SCH (05:00)
[2021-07-12] MEDS ORDERED: diazePAM 5 MG TABLET PO SCH (06:00)
[2021-07-13] MEDS ORDERED: LORazepam 0.5 MG TABLET PO ONE (05:00)
[2021-07-13] MEDS ORDERED: diazePAM 5 MG TABLET PO ONE (06:00)
== END 2021-07-11 12:23 | disposition left against medical advice (07) | DRG 770 ==
LOC: YASAS 08:37 → Y3N 12:04
PROVIDERS: ADMIT Allergy & Immunology; ATTEND Surgery
PROC: HZ2ZZZZ Detoxification Services for Substance Abuse Treatment (ICD-10-PCS; principal; 2021-07-09)
DX: F10.230 Alcohol dependence with withdrawal, uncomplicated (principal); F11.20 Opioid dependence, uncomplicated; F14.20 Cocaine dependence, uncomplicated; F12.20 Cannabis dependence, uncomplicated; F17.210 Nicotine dependence, cigarettes, uncomplicated; F33.9 Major depressive disorder, recurrent, unspecified; F19.282 Other psychoactive substance dependence with psychoactive substance-induced sleep disorder; F19.280 Other psychoactive substance dependence with psychoactive substance-induced anxiety disorder; F19.24 Other psychoactive substance dependence with psychoactive substance-induced mood disorder; Z21 Asymptomatic human immunodeficiency virus [HIV] infection status; I10 Essential (primary) hypertension; J45.20 Mild intermittent asthma, uncomplicated; K21.9 Gastro-esophageal reflux disease without esophagitis; H91.91 Unspecified hearing loss, right ear
CPT/HCPCS: 36415; 80053; 85027; 86780; C9803-CS; U0003; U0005

== ENCOUNTER 2022-01-02 13:31 | Inpatient (IN) | payer OTHER ==
[2022-01-02 14:37] VITALS: BMI 21.2
[2022-01-02] MEDS ORDERED: POLYETHYLENE GLYCOL (HEALTHYLAX) 3350 17 GM PACKET PO PRN (15:35)
[2022-01-02] MEDS ORDERED: DICYCLOMINE HCL 10 MG CAPSULE PO PRN (15:35)
[2022-01-02] MEDS ORDERED: BISMUTH SUBSALICYLATE 524 MG/30 ML PO PRN (15:35)
[2022-01-02] MEDS ORDERED: IBUPROFEN 600 MG TABLET (FP) PO PRN (15:35)
[2022-01-02] MEDS ORDERED: ACETAMINOPHEN 325 MG TABLET (FP) PO PRN ×2 (15:35)
[2022-01-02] MEDS ORDERED: NALOXONE HCL (KLOXXADO) 8 MG SPRAY NS PRN (15:35)
[2022-01-02] MEDS ORDERED: NICOTINE 10 MG CARTRIDGE (INHALER) IH PRN (15:35)
[2022-01-02] MEDS ORDERED: ONDANSETRON *ODT* 4 MG TABLET SL PRN (15:35)
[2022-01-02] MEDS ORDERED: MAG HYDROX/AL HYDROX/SIMETH 30 ML UNIT-DOSE CUP PO PRN (15:35)
[2022-01-02] MEDS ORDERED: LOPERAMIDE HCL 2 MG CAPSULE PO PRN (15:35)
[2022-01-02] MEDS ORDERED: IBUPROFEN 400 MG TABLET (FP) PO PRN (15:35)
[2022-01-02] MEDS: amLODIPine BESYLATE 5 MG TABLET (FP) PO SCH ×3 (17:31→18:02)
[2022-01-02] MEDS: PRENATAL VITAMINS W/ FOLIC ACID TABLET (FP) PO SCH (17:51)
[2022-01-02] MEDS: NICOTINE 7 MG/24 HOURS TOPICAL PATCH TD SCH (17:51)
[2022-01-02] MEDS: ASPIRIN COATED 81 MG TABLET.EC PO SCH (17:52)
[2022-01-02] MEDS: hydrOXYzine PAMOATE 25 MG CAPSULE (FP) PO PRN ×2 (17:53→22:25)
[2022-01-02] MEDS: METHOCARBAMOL 500 MG TABLET PO PRN (17:53)
[2022-01-02] MEDS: PANTOPRAZOLE 40 MG TABLET PO SCH (17:53)
[2022-01-02] MEDS: ALBUTEROL SO4 HFA INHALER IH PRN (20:34)
[2022-01-02] MEDS: MELATONIN 5 MG TABLETS PO SCH (22:25)
[2022-01-02] MEDS: guaiFENesin 200 MG/10 ML 10 ML UNIT-DOSE CUPS PO PRN (22:26)
[2022-01-02] MEDS: THIAMINE HCL 100 MG TABLET (FP) PO SCH (22:26)
[2022-01-03] MEDS ORDERED: chlordiazePOXIDE HCL 25 MG CAPSULE PO PRN (09:22)
[2022-01-03] MEDS ORDERED: diazePAM 5 MG TABLET PO PRN (09:33)
[2022-01-03] MEDS ORDERED: methaDONE HCL 10 MG TABLET PO ONE (10:01)
[2022-01-03] MEDS: ASPIRIN COATED 81 MG TABLET.EC PO SCH (10:25)
[2022-01-03] MEDS: PRENATAL VITAMINS W/ FOLIC ACID TABLET (FP) PO SCH (10:25)
[2022-01-03] MEDS: ALBUTEROL SO4 HFA INHALER IH PRN ×2 (10:25→22:32)
[2022-01-03] MEDS: ESCITALOPRAM OXALATE 20 MG TABLET PO SCH (10:26)
[2022-01-03] MEDS: amLODIPine BESYLATE 5 MG TABLET (FP) PO SCH (10:26)
[2022-01-03] MEDS: NICOTINE 7 MG/24 HOURS TOPICAL PATCH TD SCH (10:26)
[2022-01-03] MEDS: PANTOPRAZOLE 40 MG TABLET PO SCH (10:26)
[2022-01-03] MEDS: BENZOCAINE/MENTHOL (CHLORASEPTIC ) LOZENGE MM PRN (10:46)
[2022-01-03] MEDS: guaiFENesin 200 MG/10 ML 10 ML UNIT-DOSE CUPS PO PRN (10:46)
[2022-01-03] MEDS ORDERED: diazePAM 5 MG TABLET PO SCH (11:00)
[2022-01-03] MEDS ORDERED: chlordiazePOXIDE HCL 25 MG CAPSULE PO SCH (11:00)
[2022-01-03] MEDS: chlordiazePOXIDE HCL 25 MG CAPSULE PO SCH ×3 (11:56→22:29)
[2022-01-03 12:47] LABS: CHLORIDE 101 mmol/L (98-107); SODIUM 137 mmol/L (136-145)
[2022-01-03 12:52] LABS: ALBUMIN 3.3 g/dl (3.4-5.0); CALCIUM 9.4 mg/dL (8.5-10.1); CO2 29 mmol/L (21-32); GLUCOSE,RANDOM 124 mg/dL (74-106)
[2022-01-03 12:53] LABS: BLOOD UREA NITROGEN 19.8 mg/dL (7-18); HEMATOCRIT 35.4 % (32.4-45.2); HEMOGLOBIN 11.7 GM/dL (10.7-15.3); MCH 29.1 pg (25.7-33.7); MCHC 32.9 g/dl (32.0-36.0); MEAN CELL VOLUME 88.4 fl (80-96); MEAN PLT VOLUME 8.5 fl (7.5-11.1); PLATELET COUNT 261 10^3/uL (134-434); RBC 4.01 M/mm3 (3.60-5.2); RDW 16.3 % (11.6-15.6); WHITE BLOOD COUNT 3.2 K/mm3 (4.0-10.0)
[2022-01-03 12:55] LABS: CREATININE 0.7 mg/dL (0.55-1.3)
[2022-01-03 12:56] LABS: SGOT/AST 50 U/L (15-37); SGPT/ALT 23 U/L (13-61)
[2022-01-03 12:57] LABS: BILIRUBIN,TOTAL 0.6 mg/dL (0.2-1); TOT PROT 7.4 g/dl (6.4-8.2)
[2022-01-03 12:58] LABS: ALK PHOS 100 U/L (45-117)
[2022-01-03 12:59] LABS: ANION GAP 7 MMOL/L (8-16)
[2022-01-03] MEDS: METHOCARBAMOL 500 MG TABLET PO PRN (17:43)
[2022-01-03] MEDS: hydrOXYzine PAMOATE 25 MG CAPSULE (FP) PO PRN ×2 (17:43→22:28)
[2022-01-03] MEDS: MELATONIN 5 MG TABLETS PO SCH (22:28)
[2022-01-03] MEDS: THIAMINE HCL 100 MG TABLET (FP) PO SCH (22:29)
[2022-01-03] MEDS: traZODone HCL 50 MG TABLET (FP) PO SCH (22:29)
[2022-01-04] MEDS: chlordiazePOXIDE HCL 25 MG CAPSULE PO SCH ×4 (05:18→22:25)
[2022-01-04] MEDS ORDERED: methaDONE HCL 40 MG DISPERSABLE TABLET PO SCH (06:00)
[2022-01-04] MEDS: ASPIRIN COATED 81 MG TABLET.EC PO SCH (10:11)
[2022-01-04] MEDS: PRENATAL VITAMINS W/ FOLIC ACID TABLET (FP) PO SCH (10:11)
[2022-01-04] MEDS: amLODIPine BESYLATE 5 MG TABLET (FP) PO SCH (10:11)
[2022-01-04] MEDS: PANTOPRAZOLE 40 MG TABLET PO SCH (10:11)
[2022-01-04] MEDS: ESCITALOPRAM OXALATE 20 MG TABLET PO SCH (10:13)
[2022-01-04] MEDS: ALBUTEROL SO4 HFA INHALER IH PRN ×2 (10:15→22:29)
[2022-01-04 10:29] LABS: CALCIUM 9.5 mg/dL (8.5-10.1)
[2022-01-04 10:30] LABS: ALBUMIN 3.1 g/dl (3.4-5.0); BLOOD UREA NITROGEN 13.1 mg/dL (7-18)
[2022-01-04 10:33] LABS: CREATININE 0.7 mg/dL (0.55-1.3)
[2022-01-04 10:34] LABS: BILIRUBIN,TOTAL 0.6 mg/dL (0.2-1)
[2022-01-04 10:35] LABS: TOT PROT 6.8 g/dl (6.4-8.2)
[2022-01-04] MEDS: NICOTINE 7 MG/24 HOURS TOPICAL PATCH TD SCH (11:10)
[2022-01-04] MEDS: MAGNESIUM HYDROX 2400MG/30ML ORAL SUSPENSION 30 ML CUP PO PRN (16:38)
[2022-01-04] MEDS: hydrOXYzine PAMOATE 25 MG CAPSULE (FP) PO PRN ×2 (17:27→22:24)
[2022-01-04] MEDS: traZODone HCL 50 MG TABLET (FP) PO SCH (22:24)
[2022-01-04] MEDS: THIAMINE HCL 100 MG TABLET (FP) PO SCH (22:24)
[2022-01-04] MEDS: METHOCARBAMOL 500 MG TABLET PO PRN (22:24)
[2022-01-04] MEDS: MELATONIN 5 MG TABLETS PO SCH (22:24)
[2022-01-04] MEDS: guaiFENesin 200 MG/10 ML 10 ML UNIT-DOSE CUPS PO PRN (22:30)
[2022-01-05] MEDS ORDERED: chlordiazePOXIDE HCL 10 MG CAPSULE PO PRN
[2022-01-05] MEDS ORDERED: chlordiazePOXIDE HCL 25 MG CAPSULE PO SCH (05:00)
[2022-01-05] MEDS: chlordiazePOXIDE HCL 10 MG CAPSULE PO SCH ×4 (05:39→22:01)
[2022-01-05] MEDS ORDERED: diazePAM 5 MG TABLET PO SCH (06:00)
[2022-01-05] MEDS: ESCITALOPRAM OXALATE 20 MG TABLET PO SCH (10:10)
[2022-01-05] MEDS: PRENATAL VITAMINS W/ FOLIC ACID TABLET (FP) PO SCH (10:10)
[2022-01-05] MEDS: ASPIRIN COATED 81 MG TABLET.EC PO SCH (10:10)
[2022-01-05] MEDS: amLODIPine BESYLATE 5 MG TABLET (FP) PO SCH (10:10)
[2022-01-05] MEDS: PANTOPRAZOLE 40 MG TABLET PO SCH (10:10)
[2022-01-05] MEDS: NICOTINE 7 MG/24 HOURS TOPICAL PATCH TD SCH (10:11)
[2022-01-05] MEDS: MAGNESIUM HYDROX 2400MG/30ML ORAL SUSPENSION 30 ML CUP PO PRN (11:00)
[2022-01-05] MEDS: guaiFENesin 200 MG/10 ML 10 ML UNIT-DOSE CUPS PO PRN (14:33)
[2022-01-05] MEDS: BENZOCAINE/MENTHOL (CHLORASEPTIC ) LOZENGE MM PRN (14:35)
[2022-01-05] MEDS: MELATONIN 5 MG TABLETS PO SCH (22:01)
[2022-01-05] MEDS: traZODone HCL 50 MG TABLET (FP) PO SCH (22:01)
[2022-01-05] MEDS: THIAMINE HCL 100 MG TABLET (FP) PO SCH (22:02)
[2022-01-06] MEDS ORDERED: diazePAM 5 MG TABLET PO SCH (06:00)
[2022-01-06] MEDS: chlordiazePOXIDE HCL 10 MG CAPSULE PO SCH ×2 (06:01→17:39)
[2022-01-06] MEDS: ESCITALOPRAM OXALATE 20 MG TABLET PO SCH (09:46)
[2022-01-06] MEDS: ASPIRIN COATED 81 MG TABLET.EC PO SCH (09:46)
[2022-01-06] MEDS: amLODIPine BESYLATE 5 MG TABLET (FP) PO SCH (09:47)
[2022-01-06] MEDS: NICOTINE 7 MG/24 HOURS TOPICAL PATCH TD SCH (09:47)
[2022-01-06] MEDS: PANTOPRAZOLE 40 MG TABLET PO SCH (09:47)
[2022-01-06] MEDS: PRENATAL VITAMINS W/ FOLIC ACID TABLET (FP) PO SCH (09:47)
[2022-01-06] MEDS: hydrOXYzine PAMOATE 25 MG CAPSULE (FP) PO PRN ×2 (17:38→22:25)
[2022-01-06] MEDS: MELATONIN 5 MG TABLETS PO SCH (22:25)
[2022-01-06] MEDS: THIAMINE HCL 100 MG TABLET (FP) PO SCH (22:25)
[2022-01-06] MEDS: traZODone HCL 50 MG TABLET (FP) PO SCH (22:25)
[2022-01-06] MEDS: METHOCARBAMOL 500 MG TABLET PO PRN (22:26)
[2022-01-06] MEDS: guaiFENesin 200 MG/10 ML 10 ML UNIT-DOSE CUPS PO PRN (22:29)
[2022-01-06] MEDS: ALBUTEROL SO4 HFA INHALER IH PRN (22:30)
[2022-01-07] MEDS ORDERED: chlordiazePOXIDE HCL 10 MG CAPSULE PO ONE (05:00)
[2022-01-07] MEDS ORDERED: diazePAM 5 MG TABLET PO ONE (06:00)
[2022-01-07] MEDS: NICOTINE 7 MG/24 HOURS TOPICAL PATCH TD SCH (09:36)
[2022-01-07] MEDS: PANTOPRAZOLE 40 MG TABLET PO SCH (09:36)
[2022-01-07] MEDS: ASPIRIN COATED 81 MG TABLET.EC PO SCH (09:36)
[2022-01-07] MEDS: ESCITALOPRAM OXALATE 20 MG TABLET PO SCH (09:36)
[2022-01-07] MEDS: amLODIPine BESYLATE 5 MG TABLET (FP) PO SCH (09:37)
[2022-01-07] MEDS: PRENATAL VITAMINS W/ FOLIC ACID TABLET (FP) PO SCH (09:39)
[2022-01-07 10:08] VITALS: RESP 18; TEMP 98
[2022-01-07 10:16] VITALS: BP 131/61; PULSE 62
== END 2022-01-07 09:58 | disposition home or self-care (01) | DRG 773 ==
LOC: YASAS 13:31 → Y6N 16:01
PROVIDERS: ADMIT Allergy & Immunology; ATTEND Surgery
PROC: HZ2ZZZZ Detoxification Services for Substance Abuse Treatment (ICD-10-PCS; principal; 2022-01-02)
DX: F10.230 Alcohol dependence with withdrawal, uncomplicated (principal); F11.23 Opioid dependence with withdrawal; F14.20 Cocaine dependence, uncomplicated; F12.20 Cannabis dependence, uncomplicated; F17.210 Nicotine dependence, cigarettes, uncomplicated; F19.282 Other psychoactive substance dependence with psychoactive substance-induced sleep disorder; F19.280 Other psychoactive substance dependence with psychoactive substance-induced anxiety disorder; F19.24 Other psychoactive substance dependence with psychoactive substance-induced mood disorder; F41.9 Anxiety disorder, unspecified; F32.A Depression, unspecified; Z21 Asymptomatic human immunodeficiency virus [HIV] infection status; J45.20 Mild intermittent asthma, uncomplicated; K21.9 Gastro-esophageal reflux disease without esophagitis; H91.91 Unspecified hearing loss, right ear; R63.4 Abnormal weight loss; Z68.21 Body mass index [BMI] 21.0-21.9, adult
CPT/HCPCS: 36415; 71045-TC-FY; 80053; 85027; 86780; 93005; 93010; C9803-CS; U0003; U0005

== ENCOUNTER 2022-02-26 11:18 | Inpatient (IN) | payer OTHER ==
[2022-02-26 12:57] VITALS: BMI 21.5
[2022-02-26] MEDS ORDERED: ACETAMINOPHEN 325 MG TABLET (FP) PO PRN ×2 (13:18)
[2022-02-26] MEDS ORDERED: IBUPROFEN 600 MG TABLET (FP) PO PRN (13:18)
[2022-02-26] MEDS ORDERED: NALOXONE HCL (KLOXXADO) 8 MG SPRAY NS PRN (13:18)
[2022-02-26] MEDS ORDERED: BISMUTH SUBSALICYLATE 524 MG/30 ML PO PRN (13:18)
[2022-02-26] MEDS ORDERED: IBUPROFEN 400 MG TABLET (FP) PO PRN (13:18)
[2022-02-26] MEDS ORDERED: NICOTINE 10 MG CARTRIDGE (INHALER) IH PRN (13:18)
[2022-02-26] MEDS ORDERED: BENZOCAINE/MENTHOL (CHLORASEPTIC ) LOZENGE MM PRN (13:18)
[2022-02-26] MEDS ORDERED: ONDANSETRON *ODT* 4 MG TABLET SL PRN (13:18)
[2022-02-26] MEDS ORDERED: LOPERAMIDE HCL 2 MG CAPSULE PO PRN (13:18)
[2022-02-26] MEDS ORDERED: POLYETHYLENE GLYCOL (HEALTHYLAX) 3350 17 GM PACKET PO PRN (13:18)
[2022-02-26] MEDS ORDERED: DICYCLOMINE HCL 10 MG CAPSULE PO PRN (13:18)
[2022-02-26] MEDS ORDERED: ALBUTEROL SO4 HFA INHALER IH PRN (13:22)
[2022-02-26] MEDS ORDERED: amLODIPine BESYLATE 2.5 MG TABLET (FP) PO SCH ×2 (14:00→15:36)
[2022-02-26] MEDS: PANTOPRAZOLE 40 MG TABLET PO SCH (14:22)
[2022-02-26] MEDS: ASPIRIN COATED 81 MG TABLET.EC PO SCH (14:22)
[2022-02-26] MEDS: NICOTINE 7 MG/24 HOURS TOPICAL PATCH TD SCH (14:23)
[2022-02-26] MEDS: METHOCARBAMOL 500 MG TABLET PO PRN ×2 (14:23→22:25)
[2022-02-26] MEDS: PRENATAL VITAMINS W/ FOLIC ACID TABLET (FP) PO SCH (14:23)
[2022-02-26] MEDS ORDERED: diazePAM 5 MG TABLET PO SCH (17:00)
[2022-02-26] MEDS: chlordiazePOXIDE HCL 25 MG CAPSULE PO SCH ×2 (17:16→22:23)
[2022-02-26] MEDS: THIAMINE HCL 100 MG TABLET (FP) PO SCH (22:23)
[2022-02-26] MEDS: MELATONIN 5 MG TABLETS PO SCH (22:23)
[2022-02-27] MEDS: chlordiazePOXIDE HCL 25 MG CAPSULE PO PRN ×2 (05:44→13:37)
[2022-02-27] MEDS: chlordiazePOXIDE HCL 25 MG CAPSULE PO SCH ×4 (06:13→22:21)
[2022-02-27] MEDS: ASPIRIN COATED 81 MG TABLET.EC PO SCH (10:15)
[2022-02-27] MEDS: amLODIPine BESYLATE 2.5 MG TABLET (FP) PO SCH (10:15)
[2022-02-27] MEDS: METHOCARBAMOL 500 MG TABLET PO PRN ×2 (10:15→17:50)
[2022-02-27] MEDS: PANTOPRAZOLE 40 MG TABLET PO SCH (10:15)
[2022-02-27] MEDS: PRENATAL VITAMINS W/ FOLIC ACID TABLET (FP) PO SCH (10:15)
[2022-02-27] MEDS: NICOTINE 7 MG/24 HOURS TOPICAL PATCH TD SCH (10:16)
[2022-02-27] MEDS ORDERED: methaDONE HCL 10 MG TABLET PO ONE (10:36)
[2022-02-27 12:02] LABS: HEMATOCRIT 38.8 % (32.4-45.2); HEMOGLOBIN 12.6 GM/dL (10.7-15.3); MCH 28.2 pg (25.7-33.7); MCHC 32.4 g/dl (32.0-36.0); MEAN CELL VOLUME 87.2 fl (80-96); MEAN PLT VOLUME 7.7 fl (7.5-11.1); PLATELET COUNT 270 10^3/uL (134-434); RBC 4.46 M/mm3 (3.60-5.2); RDW 15.8 % (11.6-15.6); WHITE BLOOD COUNT 3.2 K/mm3 (4.0-10.0)
[2022-02-27 12:17] LABS: CALCIUM 10.3 mg/dL (8.5-10.1)
[2022-02-27 12:18] LABS: BLOOD UREA NITROGEN 15.5 mg/dL (7-18)
[2022-02-27 12:21] LABS: CREATININE 0.8 mg/dL (0.55-1.3)
[2022-02-27 12:22] LABS: BILIRUBIN,TOTAL 0.4 mg/dL (0.2-1); TOT PROT 7.9 g/dl (6.4-8.2)
[2022-02-27] MEDS: MAG HYDROX/AL HYDROX/SIMETH 30 ML UNIT-DOSE CUP PO PRN (17:50)
[2022-02-27] MEDS: MELATONIN 5 MG TABLETS PO SCH (22:17)
[2022-02-27] MEDS: THIAMINE HCL 100 MG TABLET (FP) PO SCH (22:18)
[2022-02-28] MEDS ORDERED: chlordiazePOXIDE HCL 10 MG CAPSULE PO PRN
[2022-02-28] MEDS: chlordiazePOXIDE HCL 10 MG CAPSULE PO SCH ×4 (05:22→22:15)
[2022-02-28] MEDS ORDERED: diazePAM 5 MG TABLET PO SCH (06:00)
[2022-02-28] MEDS ORDERED: methaDONE HCL 10 MG TABLET PO SCH (06:00)
[2022-02-28] MEDS ORDERED: NICOTINE POLACRILEX 2 MG GUM BUC PRN (09:50)
[2022-02-28] MEDS: PANTOPRAZOLE 40 MG TABLET PO SCH (10:14)
[2022-02-28] MEDS: PRENATAL VITAMINS W/ FOLIC ACID TABLET (FP) PO SCH (10:14)
[2022-02-28] MEDS: ASPIRIN COATED 81 MG TABLET.EC PO SCH (10:14)
[2022-02-28] MEDS: ESCITALOPRAM OXALATE 20 MG TABLET PO SCH (10:14)
[2022-02-28] MEDS: NICOTINE 7 MG/24 HOURS TOPICAL PATCH TD SCH (10:14)
[2022-02-28] MEDS: amLODIPine BESYLATE 2.5 MG TABLET (FP) PO SCH (10:14)
[2022-02-28] MEDS: MAGNESIUM HYDROX 2400MG/30ML ORAL SUSPENSION 30 ML CUP PO PRN (10:17)
[2022-02-28] MEDS: MELATONIN 5 MG TABLETS PO SCH (22:15)
[2022-02-28] MEDS: THIAMINE HCL 100 MG TABLET (FP) PO SCH (22:15)
[2022-03-01] MEDS: chlordiazePOXIDE HCL 10 MG CAPSULE PO SCH ×2 (05:14→17:29)
[2022-03-01] MEDS: MAGNESIUM HYDROX 2400MG/30ML ORAL SUSPENSION 30 ML CUP PO PRN (05:17)
[2022-03-01] MEDS ORDERED: diazePAM 5 MG TABLET PO SCH (06:00)
[2022-03-01] MEDS: PRENATAL VITAMINS W/ FOLIC ACID TABLET (FP) PO SCH (09:33)
[2022-03-01] MEDS: PANTOPRAZOLE 40 MG TABLET PO SCH (09:33)
[2022-03-01] MEDS: METHOCARBAMOL 500 MG TABLET PO PRN ×2 (09:33→17:30)
[2022-03-01] MEDS: ASPIRIN COATED 81 MG TABLET.EC PO SCH (09:33)
[2022-03-01] MEDS: ESCITALOPRAM OXALATE 20 MG TABLET PO SCH (09:33)
[2022-03-01] MEDS: amLODIPine BESYLATE 2.5 MG TABLET (FP) PO SCH (09:34)
[2022-03-01] MEDS: NICOTINE 7 MG/24 HOURS TOPICAL PATCH TD SCH (09:34)
[2022-03-01] MEDS: MAG HYDROX/AL HYDROX/SIMETH 30 ML UNIT-DOSE CUP PO PRN (16:34)
[2022-03-01] MEDS: MELATONIN 5 MG TABLETS PO SCH (22:56)
[2022-03-01] MEDS: THIAMINE HCL 100 MG TABLET (FP) PO SCH (22:56)
[2022-03-02] MEDS ORDERED: chlordiazePOXIDE HCL 10 MG CAPSULE PO ONE (05:00)
[2022-03-02] MEDS ORDERED: diazePAM 5 MG TABLET PO ONE (06:00)
[2022-03-02] MEDS: amLODIPine BESYLATE 2.5 MG TABLET (FP) PO SCH (09:10)
[2022-03-02] MEDS: PRENATAL VITAMINS W/ FOLIC ACID TABLET (FP) PO SCH (09:10)
[2022-03-02] MEDS: PANTOPRAZOLE 40 MG TABLET PO SCH (09:10)
[2022-03-02] MEDS: ASPIRIN COATED 81 MG TABLET.EC PO SCH (09:10)
[2022-03-02] MEDS: ESCITALOPRAM OXALATE 20 MG TABLET PO SCH (09:10)
[2022-03-02] MEDS: NICOTINE 7 MG/24 HOURS TOPICAL PATCH TD SCH (09:12)
[2022-03-02 09:27] VITALS: BP 108/68; PULSE 64; RESP 17; TEMP 97.3
== END 2022-03-02 10:15 | disposition home or self-care (01) | DRG 773 ==
LOC: YASAS 11:18 → Y6N 13:31
PROVIDERS: ADMIT Allergy & Immunology; ATTEND Surgery
PROC: HZ2ZZZZ Detoxification Services for Substance Abuse Treatment (ICD-10-PCS; principal; 2022-02-26)
DX: F10.230 Alcohol dependence with withdrawal, uncomplicated (principal); F11.20 Opioid dependence, uncomplicated; F17.210 Nicotine dependence, cigarettes, uncomplicated; F19.282 Other psychoactive substance dependence with psychoactive substance-induced sleep disorder; F19.280 Other psychoactive substance dependence with psychoactive substance-induced anxiety disorder; F19.24 Other psychoactive substance dependence with psychoactive substance-induced mood disorder; F33.9 Major depressive disorder, recurrent, unspecified; Z21 Asymptomatic human immunodeficiency virus [HIV] infection status; I10 Essential (primary) hypertension; J45.20 Mild intermittent asthma, uncomplicated; K21.9 Gastro-esophageal reflux disease without esophagitis; H91.91 Unspecified hearing loss, right ear; Z91.410 Personal history of adult physical and sexual abuse
CPT/HCPCS: 36415; 80053; 83036; 85027; 86780; C9803-CS; U0003; U0005

== ENCOUNTER 2022-04-13 11:46 | Inpatient (IN) | payer OTHER ==
[2022-04-13 12:20] VITALS: BMI 20.1
[2022-04-13] MEDS ORDERED: BENZOCAINE/MENTHOL (CHLORASEPTIC ) LOZENGE MM PRN (12:46)
[2022-04-13] MEDS ORDERED: NICOTINE 10 MG CARTRIDGE (INHALER) IH PRN (12:46)
[2022-04-13] MEDS ORDERED: ONDANSETRON *ODT* 4 MG TABLET SL PRN (12:46)
[2022-04-13] MEDS ORDERED: BISMUTH SUBSALICYLATE 262 MG/15 ML BTL PO PRN (12:46)
[2022-04-13] MEDS ORDERED: IBUPROFEN 400 MG TABLET (FP) PO PRN (12:46)
[2022-04-13] MEDS ORDERED: POLYETHYLENE GLYCOL (HEALTHYLAX) 3350 17 GM PACKET PO PRN (12:46)
[2022-04-13] MEDS ORDERED: LORazepam 2 MG TABLET PO ONE (12:46)
[2022-04-13] MEDS ORDERED: NALOXONE HCL (KLOXXADO) 8 MG SPRAY NS PRN (12:46)
[2022-04-13] MEDS ORDERED: LOPERAMIDE HCL 2 MG CAPSULE PO PRN (12:46)
[2022-04-13] MEDS ORDERED: MAG HYDROX/AL HYDROX/SIMETH 30 ML UNIT-DOSE CUP PO PRN (12:46)
[2022-04-13] MEDS ORDERED: ACETAMINOPHEN 325 MG TABLET (FP) PO PRN ×2 (12:46)
[2022-04-13] MEDS ORDERED: DICYCLOMINE HCL 10 MG CAPSULE PO PRN (12:46)
[2022-04-13] MEDS ORDERED: MAGNESIUM HYDROX 2400MG/30ML ORAL SUSPENSION 30 ML CUP PO PRN (12:46)
[2022-04-13] MEDS ORDERED: METHOCARBAMOL 500 MG TABLET PO PRN (12:46)
[2022-04-13] MEDS ORDERED: NICOTINE 7 MG/24 HOURS TOPICAL PATCH TD ONE (13:04)
[2022-04-13] MEDS ORDERED: LORazepam 2 MG TABLET ONE (13:04)
[2022-04-13] MEDS ORDERED: PRENATAL VITAMINS W/ FOLIC ACID TABLET (FP) PO ONE (13:04)
[2022-04-13] MEDS: PRENATAL VITAMINS W/ FOLIC ACID TABLET (FP) PO SCH (13:30)
[2022-04-13] MEDS: NICOTINE 7 MG/24 HOURS TOPICAL PATCH TD SCH (13:30)
[2022-04-13 17:32] LABS: HEMATOCRIT 35.4 % (32.4-45.2); HEMOGLOBIN 11.6 GM/dL (10.7-15.3); MCH 28.5 pg (25.7-33.7); MCHC 32.6 g/dl (32.0-36.0); MEAN CELL VOLUME 87.4 fl (80-96); PLATELET COUNT 250 10^3/uL (134-434); RBC 4.05 M/mm3 (3.60-5.2); RDW 17.2 % (11.6-15.6); WHITE BLOOD COUNT 5.9 K/mm3 (4.0-10.0)
[2022-04-13] MEDS: LORazepam 2 MG TABLET PO SCH ×2 (17:41→22:27)
[2022-04-13] MEDS ORDERED: ALBUTEROL SO4 HFA INHALER IH ONE (17:42)
[2022-04-13 17:45] LABS: CALCIUM 9.2 mg/dL (8.5-10.1)
[2022-04-13 17:46] LABS: ALBUMIN 3.9 g/dl (3.4-5.0)
[2022-04-13 17:49] LABS: CREATININE 0.9 mg/dL (0.55-1.3)
[2022-04-13 17:50] LABS: BILIRUBIN,TOTAL 0.3 mg/dL (0.2-1)
[2022-04-13 17:51] LABS: TOT PROT 7.7 g/dl (6.4-8.2)
[2022-04-13] MEDS ORDERED: ALBUTEROL SO4 HFA INHALER IH PRN (18:29)
[2022-04-13] MEDS: THIAMINE HCL 100 MG TABLET (FP) PO SCH (22:27)
[2022-04-13] MEDS: MELATONIN 5 MG TABLETS PO SCH (22:27)
[2022-04-14] MEDS: LORazepam 2 MG TABLET PO SCH ×4 (05:56→22:16)
[2022-04-14] MEDS ORDERED: methaDONE HCL 10 MG TABLET PO SCH (09:45)
[2022-04-14] MEDS: NICOTINE 7 MG/24 HOURS TOPICAL PATCH TD SCH (10:01)
[2022-04-14] MEDS: PRENATAL VITAMINS W/ FOLIC ACID TABLET (FP) PO SCH (10:01)
[2022-04-14] MEDS: amLODIPine BESYLATE 5 MG TABLET (FP) PO SCH (10:02)
[2022-04-14] MEDS: PANTOPRAZOLE 40 MG TABLET PO SCH (10:02)
[2022-04-14] MEDS: ASPIRIN COATED 81 MG TABLET.EC PO SCH (10:02)
[2022-04-14] MEDS: LACTULOSE 20 GM/30 ML UDC (FOR ORAL USE ONLY) PO SCH ×3 (14:18→22:15)
[2022-04-14] MEDS: hydrOXYzine PAMOATE 25 MG CAPSULE (FP) PO PRN (14:27)
[2022-04-14] MEDS: LORazepam 1 MG TABLET PO PRN ×2 (14:28→20:25)
[2022-04-14] MEDS: THIAMINE HCL 100 MG TABLET (FP) PO SCH (22:16)
[2022-04-14] MEDS: MELATONIN 5 MG TABLETS PO SCH (22:16)
[2022-04-15] MEDS: LORazepam 1 MG TABLET PO SCH ×4 (05:24→22:03)
[2022-04-15] MEDS: amLODIPine BESYLATE 5 MG TABLET (FP) PO SCH (10:13)
[2022-04-15] MEDS: PANTOPRAZOLE 40 MG TABLET PO SCH (10:13)
[2022-04-15] MEDS: PRENATAL VITAMINS W/ FOLIC ACID TABLET (FP) PO SCH (10:13)
[2022-04-15] MEDS: ASPIRIN COATED 81 MG TABLET.EC PO SCH (10:13)
[2022-04-15] MEDS: LACTULOSE 20 GM/30 ML UDC (FOR ORAL USE ONLY) PO SCH ×4 (10:13→22:03)
[2022-04-15] MEDS: NICOTINE 7 MG/24 HOURS TOPICAL PATCH TD SCH (10:14)
[2022-04-15] MEDS: hydrOXYzine PAMOATE 25 MG CAPSULE (FP) PO PRN (10:15)
[2022-04-15] MEDS ORDERED: NICOTINE POLACRILEX 2 MG GUM BUC PRN (14:14)
[2022-04-15] MEDS: IBUPROFEN 600 MG TABLET (FP) PO PRN (20:25)
[2022-04-15] MEDS: MELATONIN 5 MG TABLETS PO SCH (22:03)
[2022-04-15] MEDS: THIAMINE HCL 100 MG TABLET (FP) PO SCH (22:03)
[2022-04-16] MEDS ORDERED: LORazepam 0.5 MG TABLET PO PRN
[2022-04-16] MEDS: LORazepam 0.5 MG TABLET PO SCH ×4 (05:30→22:24)
[2022-04-16] MEDS: LACTULOSE 20 GM/30 ML UDC (FOR ORAL USE ONLY) PO SCH ×4 (09:53→22:25)
[2022-04-16] MEDS: PANTOPRAZOLE 40 MG TABLET PO SCH (09:54)
[2022-04-16] MEDS: amLODIPine BESYLATE 5 MG TABLET (FP) PO SCH (09:54)
[2022-04-16] MEDS: ASPIRIN COATED 81 MG TABLET.EC PO SCH (09:54)
[2022-04-16] MEDS: PRENATAL VITAMINS W/ FOLIC ACID TABLET (FP) PO SCH (09:55)
[2022-04-16] MEDS: NICOTINE 7 MG/24 HOURS TOPICAL PATCH TD SCH (09:57)
[2022-04-16] MEDS: MELATONIN 5 MG TABLETS PO SCH (22:23)
[2022-04-16] MEDS: THIAMINE HCL 100 MG TABLET (FP) PO SCH (22:23)
[2022-04-17] MEDS: IBUPROFEN 600 MG TABLET (FP) PO PRN (02:31)
[2022-04-17] MEDS ORDERED: LORazepam 0.5 MG TABLET PO ONE (05:00)
[2022-04-17 06:57] VITALS: RESP 18
[2022-04-17 08:53] VITALS: BP 124/86; PULSE 67; TEMP 98.1
[2022-04-17] MEDS: amLODIPine BESYLATE 5 MG TABLET (FP) PO SCH (09:17)
[2022-04-17] MEDS: PRENATAL VITAMINS W/ FOLIC ACID TABLET (FP) PO SCH (09:17)
[2022-04-17] MEDS: ASPIRIN COATED 81 MG TABLET.EC PO SCH (09:17)
[2022-04-17] MEDS: PANTOPRAZOLE 40 MG TABLET PO SCH (09:17)
== END 2022-04-17 09:24 | disposition home or self-care (01) | DRG 773 ==
LOC: YASAS 11:46 → Y3N 13:06
PROVIDERS: ADMIT Allergy & Immunology; ATTEND Surgery
PROC: HZ2ZZZZ Detoxification Services for Substance Abuse Treatment (ICD-10-PCS; principal; 2022-04-13)
DX: F11.23 Opioid dependence with withdrawal (principal); F10.230 Alcohol dependence with withdrawal, uncomplicated; F19.282 Other psychoactive substance dependence with psychoactive substance-induced sleep disorder; F19.280 Other psychoactive substance dependence with psychoactive substance-induced anxiety disorder; F19.24 Other psychoactive substance dependence with psychoactive substance-induced mood disorder; F32.A Depression, unspecified; F41.9 Anxiety disorder, unspecified; Z21 Asymptomatic human immunodeficiency virus [HIV] infection status; E72.20 Disorder of urea cycle metabolism, unspecified; I10 Essential (primary) hypertension; K21.9 Gastro-esophageal reflux disease without esophagitis; J45.20 Mild intermittent asthma, uncomplicated; R79.89 Other specified abnormal findings of blood chemistry
CPT/HCPCS: 36415; 80053; 82140; 85027; 86780; 87811; C9803-CS; U0003; U0005

== ENCOUNTER 2022-08-15 10:17 | Inpatient (IN) | payer OTHER ==
[2022-08-15 11:22] VITALS: BMI 22.3
[2022-08-15] MEDS ORDERED: MAGNESIUM HYDROX 2400MG/30ML ORAL SUSPENSION 30 ML CUP PO PRN (11:41)
[2022-08-15] MEDS ORDERED: NALOXONE HCL 0.4 MG/ML VIAL IM PRN (11:41)
[2022-08-15] MEDS ORDERED: BENZOCAINE/MENTHOL (CHLORASEPTIC ) LOZENGE MM PRN (11:41)
[2022-08-15] MEDS ORDERED: POLYETHYLENE GLYCOL (HEALTHYLAX) 3350 17 GM PACKET PO PRN (11:41)
[2022-08-15] MEDS ORDERED: DICYCLOMINE HCL 10 MG CAPSULE PO PRN (11:41)
[2022-08-15] MEDS ORDERED: guaiFENesin 600 MG TABLET.ER (FP) PO PRN (11:41)
[2022-08-15] MEDS ORDERED: BENZONATATE 200 MG CAPSULE PO PRN (11:41)
[2022-08-15] MEDS ORDERED: LOPERAMIDE HCL 2 MG CAPSULE PO PRN (11:41)
[2022-08-15] MEDS ORDERED: NALOXONE HCL (KLOXXADO) 8 MG SPRAY NS PRN (11:41)
[2022-08-15] MEDS ORDERED: IBUPROFEN 400 MG TABLET (FP) PO PRN (11:41)
[2022-08-15] MEDS ORDERED: P-EPHED 60MG/TRIPROLIDI 2.5MG TABLET PO PRN (11:41)
[2022-08-15] MEDS ORDERED: BISMUTH SUBSALICYLATE 262 MG/15 ML BTL PO PRN (11:41)
[2022-08-15] MEDS ORDERED: MAG HYDROX/AL HYDROX/SIMETH 30 ML UNIT-DOSE CUP PO PRN (11:41)
[2022-08-15] MEDS ORDERED: ONDANSETRON *ODT* 4 MG TABLET SL PRN (11:41)
[2022-08-15] MEDS ORDERED: IBUPROFEN 600 MG TABLET (FP) PO PRN (11:41)
[2022-08-15] MEDS ORDERED: chlordiazePOXIDE HCL 25 MG CAPSULE PO PRN (11:43)
[2022-08-15] MEDS: chlordiazePOXIDE HCL 25 MG CAPSULE PO SCH ×2 (17:07→22:26)
[2022-08-15] MEDS ORDERED: amLODIPine BESYLATE 2.5 MG TABLET (FP) PO SCH (17:15)
[2022-08-15] MEDS ORDERED: amLODIPine BESYLATE 5 MG TABLET (FP) PO ONE (17:15)
[2022-08-15] MEDS ORDERED: methaDONE HCL 40 MG DISPERSABLE TABLET PO ONE (17:16)
[2022-08-15] MEDS: ACETAMINOPHEN 325 MG TABLET (FP) PO PRN (20:40)
[2022-08-15] MEDS ORDERED: cloNIDine HCL 0.1 MG TABLET PO ONE (20:59)
[2022-08-15] MEDS: MELATONIN 5 MG TABLETS PO SCH (22:25)
[2022-08-15] MEDS: THIAMINE HCL 100 MG TABLET (FP) PO SCH (22:26)
[2022-08-16] MEDS: methaDONE HCL 40 MG DISPERSABLE TABLET PO SCH (05:55)
[2022-08-16] MEDS: chlordiazePOXIDE HCL 25 MG CAPSULE PO SCH ×4 (05:55→22:16)
[2022-08-16] MEDS: PRENATAL VITAMINS W/ FOLIC ACID TABLET (FP) PO SCH (10:29)
[2022-08-16] MEDS: PANTOPRAZOLE 40 MG TABLET PO SCH (10:29)
[2022-08-16] MEDS: amLODIPine BESYLATE 2.5 MG TABLET (FP) PO SCH (10:29)
[2022-08-16] MEDS: NICOTINE POLACRILEX 2 MG GUM BUC PRN (10:33)
[2022-08-16 12:30] LABS: HEMATOCRIT 41.8 % (32.4-45.2); MCHC 31.1 g/dl (32.0-36.0); MEAN PLT VOLUME 8.5 fl (7.5-11.1); PLATELET COUNT 210 10^3/uL (134-434); RDW 15.8 % (11.6-15.6); WHITE BLOOD COUNT 2.8 K/mm3 (4.0-10.0)
[2022-08-16 12:42] LABS: POTASSIUM 4.2 mmol/L (3.5-5.1)
[2022-08-16 12:52] LABS: ALBUMIN 3.9 g/dl (3.4-5.0); CALCIUM 10.5 mg/dL (8.5-10.1)
[2022-08-16 12:53] LABS: BLOOD UREA NITROGEN 10.8 mg/dL (7-18)
[2022-08-16 12:56] LABS: CREATININE 0.7 mg/dL (0.55-1.3); TOT PROT 7.9 g/dl (6.4-8.2)
[2022-08-16 12:57] LABS: BILIRUBIN,TOTAL 0.4 mg/dL (0.2-1)
[2022-08-16] MEDS: ACETAMINOPHEN 325 MG TABLET (FP) PO PRN (17:07)
[2022-08-16] MEDS: ALBUTEROL SO4 HFA INHALER IH PRN (20:10)
[2022-08-16] MEDS: THIAMINE HCL 100 MG TABLET (FP) PO SCH (22:16)
[2022-08-16] MEDS: MELATONIN 5 MG TABLETS PO SCH (22:16)
[2022-08-17] MEDS: methaDONE HCL 40 MG DISPERSABLE TABLET PO SCH (05:46)
[2022-08-17] MEDS: chlordiazePOXIDE HCL 25 MG CAPSULE PO SCH ×4 (05:47→22:32)
[2022-08-17] MEDS: ESCITALOPRAM OXALATE 10 MG TABLET PO SCH (10:21)
[2022-08-17] MEDS: PANTOPRAZOLE 40 MG TABLET PO SCH (10:21)
[2022-08-17] MEDS: PRENATAL VITAMINS W/ FOLIC ACID TABLET (FP) PO SCH (10:21)
[2022-08-17] MEDS: amLODIPine BESYLATE 2.5 MG TABLET (FP) PO SCH (10:21)
[2022-08-17] MEDS: ALBUTEROL SO4 HFA INHALER IH PRN (10:23)
[2022-08-17] MEDS: NICOTINE POLACRILEX 2 MG GUM BUC PRN (15:01)
[2022-08-17] MEDS: NICOTINE 7 MG/24 HOURS TOPICAL PATCH TD SCH (15:09)
[2022-08-17] MEDS ORDERED: LACTULOSE 20 GM/30 ML UDC (FOR ORAL USE ONLY) PO ONE (20:32)
[2022-08-17] MEDS ORDERED: DOCUSATE SODIUM 100 MG CAPSULE (FP) PO ONE (20:33)
[2022-08-17] MEDS: THIAMINE HCL 100 MG TABLET (FP) PO SCH (22:32)
[2022-08-17] MEDS: hydrOXYzine PAMOATE 25 MG CAPSULE (FP) PO PRN (22:32)
[2022-08-17] MEDS: MELATONIN 5 MG TABLETS PO SCH (22:32)
[2022-08-18] MEDS ORDERED: chlordiazePOXIDE HCL 10 MG CAPSULE PO PRN
[2022-08-18] MEDS: methaDONE HCL 40 MG DISPERSABLE TABLET PO SCH (05:44)
[2022-08-18] MEDS: chlordiazePOXIDE HCL 10 MG CAPSULE PO SCH ×4 (05:45→22:04)
[2022-08-18] MEDS: PANTOPRAZOLE 40 MG TABLET PO SCH (10:15)
[2022-08-18] MEDS: NICOTINE 7 MG/24 HOURS TOPICAL PATCH TD SCH (10:15)
[2022-08-18] MEDS: ESCITALOPRAM OXALATE 10 MG TABLET PO SCH (10:15)
[2022-08-18] MEDS: amLODIPine BESYLATE 2.5 MG TABLET (FP) PO SCH (10:15)
[2022-08-18] MEDS: PRENATAL VITAMINS W/ FOLIC ACID TABLET (FP) PO SCH (10:15)
[2022-08-18] MEDS: ACETAMINOPHEN 325 MG TABLET (FP) PO PRN (10:18)
[2022-08-18] MEDS ORDERED: LACTULOSE 20 GM/30 ML UDC (FOR ORAL USE ONLY) PO ONE (16:38)
[2022-08-18] MEDS: MELATONIN 5 MG TABLETS PO SCH (22:03)
[2022-08-18] MEDS: THIAMINE HCL 100 MG TABLET (FP) PO SCH (22:04)
[2022-08-19] MEDS: methaDONE HCL 40 MG DISPERSABLE TABLET PO SCH (05:12)
[2022-08-19] MEDS: chlordiazePOXIDE HCL 10 MG CAPSULE PO SCH ×2 (05:12→17:37)
[2022-08-19] MEDS: ESCITALOPRAM OXALATE 10 MG TABLET PO SCH (10:04)
[2022-08-19] MEDS: PRENATAL VITAMINS W/ FOLIC ACID TABLET (FP) PO SCH (10:04)
[2022-08-19] MEDS: PANTOPRAZOLE 40 MG TABLET PO SCH (10:04)
[2022-08-19] MEDS: NICOTINE 7 MG/24 HOURS TOPICAL PATCH TD SCH (10:05)
[2022-08-19] MEDS: amLODIPine BESYLATE 2.5 MG TABLET (FP) PO SCH (10:06)
[2022-08-19] MEDS: THIAMINE HCL 100 MG TABLET (FP) PO SCH ×2 (22:23→22:42)
[2022-08-19] MEDS: MELATONIN 5 MG TABLETS PO SCH ×2 (22:23→22:42)
[2022-08-19] MEDS: hydrOXYzine PAMOATE 25 MG CAPSULE (FP) PO PRN (22:43)
[2022-08-20] MEDS ORDERED: chlordiazePOXIDE HCL 10 MG CAPSULE PO ONE (05:00)
[2022-08-20] MEDS: methaDONE HCL 40 MG DISPERSABLE TABLET PO SCH (06:00)
[2022-08-20] MEDS: PANTOPRAZOLE 40 MG TABLET PO SCH (09:26)
[2022-08-20] MEDS: amLODIPine BESYLATE 2.5 MG TABLET (FP) PO SCH (09:26)
[2022-08-20] MEDS: NICOTINE 7 MG/24 HOURS TOPICAL PATCH TD SCH (09:26)
[2022-08-20] MEDS: PRENATAL VITAMINS W/ FOLIC ACID TABLET (FP) PO SCH (09:26)
[2022-08-20] MEDS: ESCITALOPRAM OXALATE 10 MG TABLET PO SCH (09:27)
[2022-08-20 09:57] VITALS: BP 114/86; PULSE 81; RESP 18; TEMP 97.6
== END 2022-08-20 09:28 | disposition home or self-care (01) | DRG 774 ==
LOC: YASAS 10:17 → Y3N 11:41
PROVIDERS: ADMIT Allergy & Immunology; ATTEND Surgery
PROC: HZ2ZZZZ Detoxification Services for Substance Abuse Treatment (ICD-10-PCS; principal; 2022-08-15)
DX: F10.230 Alcohol dependence with withdrawal, uncomplicated (principal); F14.20 Cocaine dependence, uncomplicated; F12.20 Cannabis dependence, uncomplicated; F17.210 Nicotine dependence, cigarettes, uncomplicated; F41.9 Anxiety disorder, unspecified; F32.A Depression, unspecified; Z21 Asymptomatic human immunodeficiency virus [HIV] infection status; I10 Essential (primary) hypertension; J45.20 Mild intermittent asthma, uncomplicated; K21.9 Gastro-esophageal reflux disease without esophagitis; K59.00 Constipation, unspecified; H91.91 Unspecified hearing loss, right ear
CPT/HCPCS: 36415; 80053; 85027; 86780; 87635; 87811; Q0162

== ENCOUNTER 2022-09-15 11:26 | Inpatient (IN) | payer OTHER ==
[2022-09-15 12:25] VITALS: BMI 22.3
[2022-09-15] MEDS ORDERED: ACETAMINOPHEN 325 MG TABLET (FP) PO PRN (12:53)
[2022-09-15] MEDS ORDERED: ONDANSETRON *ODT* 4 MG TABLET SL PRN (12:53)
[2022-09-15] MEDS ORDERED: IBUPROFEN 600 MG TABLET (FP) PO PRN (12:53)
[2022-09-15] MEDS ORDERED: guaiFENesin 600 MG TABLET.ER (FP) PO PRN (12:53)
[2022-09-15] MEDS ORDERED: BISMUTH SUBSALICYLATE 524 MG/30 ML PO PRN (12:53)
[2022-09-15] MEDS ORDERED: NALOXONE HCL 0.4 MG/ML VIAL IM PRN (12:53)
[2022-09-15] MEDS ORDERED: MAGNESIUM HYDROX 2400MG/30ML ORAL SUSPENSION 30 ML CUP PO PRN (12:53)
[2022-09-15] MEDS ORDERED: IBUPROFEN 400 MG TABLET (FP) PO PRN (12:53)
[2022-09-15] MEDS ORDERED: BENZONATATE 200 MG CAPSULE PO PRN (12:53)
[2022-09-15] MEDS ORDERED: POLYETHYLENE GLYCOL (HEALTHYLAX) 3350 17 GM PACKET PO PRN (12:53)
[2022-09-15] MEDS ORDERED: LOPERAMIDE HCL 2 MG CAPSULE PO PRN (12:53)
[2022-09-15] MEDS ORDERED: MAG HYDROX/AL HYDROX/SIMETH 30 ML UNIT-DOSE CUP PO PRN (12:53)
[2022-09-15] MEDS ORDERED: DICYCLOMINE HCL 10 MG CAPSULE PO PRN (12:53)
[2022-09-15] MEDS ORDERED: BENZOCAINE/MENTHOL (CHLORASEPTIC ) LOZENGE MM PRN (12:53)
[2022-09-15] MEDS ORDERED: NALOXONE HCL (KLOXXADO) 8 MG SPRAY NS PRN (12:53)
[2022-09-15] MEDS ORDERED: chlordiazePOXIDE HCL 25 MG CAPSULE ONE (15:59)
[2022-09-15] MEDS: chlordiazePOXIDE HCL 25 MG CAPSULE PO SCH ×2 (16:00→22:16)
[2022-09-15] MEDS ORDERED: ALBUTEROL SO4 HFA INHALER IH PRN (16:08)
[2022-09-15] MEDS: hydrOXYzine PAMOATE 25 MG CAPSULE (FP) PO PRN (18:16)
[2022-09-15] MEDS: METHOCARBAMOL 500 MG TABLET PO PRN (18:16)
[2022-09-15] MEDS: chlordiazePOXIDE HCL 25 MG CAPSULE PO PRN (19:13)
[2022-09-15] MEDS: MELATONIN 5 MG TABLETS PO SCH (22:15)
[2022-09-15] MEDS: THIAMINE HCL 100 MG TABLET (FP) PO SCH (22:15)
[2022-09-16] MEDS: chlordiazePOXIDE HCL 25 MG CAPSULE PO SCH ×4 (05:46→21:59)
[2022-09-16] MEDS ORDERED: PATIENT'S OWN MEDICATION (NON-FORMULARY) (Omeprazole [Omeprazole] 20 MG Tablet.Dr) PO SCH (10:00)
[2022-09-16] MEDS: PRENATAL VITAMINS W/ FOLIC ACID TABLET (FP) PO SCH (10:32)
[2022-09-16] MEDS: PANTOPRAZOLE 40 MG TABLET PO SCH (10:32)
[2022-09-16] MEDS: amLODIPine BESYLATE 5 MG TABLET (FP) PO SCH (10:34)
[2022-09-16] MEDS ORDERED: methaDONE HCL 10 MG TABLET PO ONE (11:15)
[2022-09-16] MEDS: chlordiazePOXIDE HCL 25 MG CAPSULE PO PRN (13:37)
[2022-09-16] MEDS: ESCITALOPRAM OXALATE 10 MG TABLET PO SCH (14:01)
[2022-09-16] MEDS: THIAMINE HCL 100 MG TABLET (FP) PO SCH (21:59)
[2022-09-16] MEDS: MELATONIN 5 MG TABLETS PO SCH (21:59)
[2022-09-17] MEDS: chlordiazePOXIDE HCL 25 MG CAPSULE PO SCH ×4 (05:47→22:03)
[2022-09-17] MEDS ORDERED: methaDONE HCL 10 MG TABLET PO SCH (08:00)
[2022-09-17] MEDS: methaDONE 40 MG, methaDONE 30 MG PO SCH (08:05)
[2022-09-17] MEDS: PRENATAL VITAMINS W/ FOLIC ACID TABLET (FP) PO SCH (10:15)
[2022-09-17] MEDS: amLODIPine BESYLATE 5 MG TABLET (FP) PO SCH (10:15)
[2022-09-17] MEDS: PANTOPRAZOLE 40 MG TABLET PO SCH (10:16)
[2022-09-17] MEDS: ESCITALOPRAM OXALATE 10 MG TABLET PO SCH (10:16)
[2022-09-17] MEDS: hydrOXYzine PAMOATE 25 MG CAPSULE (FP) PO PRN (10:17)
[2022-09-17] MEDS: NICOTINE POLACRILEX 2 MG GUM BUC PRN (10:17)
[2022-09-17 11:09] LABS: HEMATOCRIT 38.4 % (32.4-45.2); HEMOGLOBIN 12.6 GM/dL (10.7-15.3); MCH 27.7 pg (25.7-33.7); MCHC 32.9 g/dl (32.0-36.0); MEAN CELL VOLUME 84.4 fl (80-96); MEAN PLT VOLUME 8.3 fl (7.5-11.1); PLATELET COUNT 263 10^3/uL (134-434); RBC 4.55 M/mm3 (3.60-5.2); RDW 14.4 % (11.6-15.6); WHITE BLOOD COUNT 3.5 K/mm3 (4.0-10.0)
[2022-09-17 11:13] LABS: POTASSIUM 4.9 mmol/L (3.5-5.1)
[2022-09-17 11:17] LABS: CALCIUM 9.6 mg/dL (8.5-10.1)
[2022-09-17 11:18] LABS: ALBUMIN 3.5 g/dl (3.4-5.0); BLOOD UREA NITROGEN 14.4 mg/dL (7-18)
[2022-09-17 11:20] LABS: CREATININE 0.9 mg/dL (0.55-1.3)
[2022-09-17 11:22] LABS: BILIRUBIN,TOTAL 0.3 mg/dL (0.2-1); TOT PROT 7.1 g/dl (6.4-8.2)
[2022-09-17] MEDS: chlordiazePOXIDE HCL 25 MG CAPSULE PO PRN (18:20)
[2022-09-17] MEDS: MELATONIN 5 MG TABLETS PO SCH (22:02)
[2022-09-17] MEDS: THIAMINE HCL 100 MG TABLET (FP) PO SCH (22:02)
[2022-09-18] MEDS ORDERED: chlordiazePOXIDE HCL 10 MG CAPSULE PO PRN
[2022-09-18] MEDS: chlordiazePOXIDE HCL 10 MG CAPSULE PO SCH ×4 (05:13→22:21)
[2022-09-18] MEDS: methaDONE 40 MG, methaDONE 30 MG PO SCH (05:14)
[2022-09-18] MEDS: PRENATAL VITAMINS W/ FOLIC ACID TABLET (FP) PO SCH (10:22)
[2022-09-18] MEDS: ESCITALOPRAM OXALATE 10 MG TABLET PO SCH (10:22)
[2022-09-18] MEDS: PANTOPRAZOLE 40 MG TABLET PO SCH (10:23)
[2022-09-18] MEDS: amLODIPine BESYLATE 5 MG TABLET (FP) PO SCH (10:23)
[2022-09-18] MEDS: MELATONIN 5 MG TABLETS PO SCH (22:20)
[2022-09-18] MEDS: THIAMINE HCL 100 MG TABLET (FP) PO SCH (22:20)
[2022-09-19] MEDS: methaDONE 40 MG, methaDONE 30 MG PO SCH (05:50)
[2022-09-19] MEDS: chlordiazePOXIDE HCL 10 MG CAPSULE PO SCH ×2 (05:50→17:04)
[2022-09-19] MEDS: PRENATAL VITAMINS W/ FOLIC ACID TABLET (FP) PO SCH (10:04)
[2022-09-19] MEDS: PANTOPRAZOLE 40 MG TABLET PO SCH (10:05)
[2022-09-19] MEDS: amLODIPine BESYLATE 5 MG TABLET (FP) PO SCH (10:05)
[2022-09-19] MEDS: ESCITALOPRAM OXALATE 10 MG TABLET PO SCH (10:05)
[2022-09-19] MEDS: hydrOXYzine PAMOATE 25 MG CAPSULE (FP) PO PRN ×2 (10:11→22:11)
[2022-09-19] MEDS: NICOTINE POLACRILEX 2 MG GUM BUC PRN (10:56)
[2022-09-19 17:30] VITALS: RESP 16
[2022-09-19] MEDS: THIAMINE HCL 100 MG TABLET (FP) PO SCH (22:11)
[2022-09-19] MEDS: MELATONIN 5 MG TABLETS PO SCH (22:11)
[2022-09-19] MEDS: METHOCARBAMOL 500 MG TABLET PO PRN (22:12)
[2022-09-20] MEDS ORDERED: chlordiazePOXIDE HCL 10 MG CAPSULE PO ONE (05:00)
[2022-09-20] MEDS: methaDONE 40 MG, methaDONE 30 MG PO SCH (05:29)
[2022-09-20 06:29] VITALS: BP 136/79; PULSE 65; TEMP 97.5
[2022-09-20] MEDS: ESCITALOPRAM OXALATE 10 MG TABLET PO SCH (09:29)
[2022-09-20] MEDS: PRENATAL VITAMINS W/ FOLIC ACID TABLET (FP) PO SCH (09:30)
[2022-09-20] MEDS: amLODIPine BESYLATE 5 MG TABLET (FP) PO SCH (09:30)
[2022-09-20] MEDS: PANTOPRAZOLE 40 MG TABLET PO SCH (09:30)
== END 2022-09-20 09:30 | disposition home or self-care (01) | DRG 773 ==
LOC: YASAS 11:26 → Y6N 15:23
PROVIDERS: ADMIT Allergy & Immunology; ATTEND Allergy & Immunology
PROC: HZ2ZZZZ Detoxification Services for Substance Abuse Treatment (ICD-10-PCS; principal; 2022-09-15)
DX: F10.230 Alcohol dependence with withdrawal, uncomplicated (principal); F11.20 Opioid dependence, uncomplicated; F17.213 Nicotine dependence, cigarettes, with withdrawal; F14.20 Cocaine dependence, uncomplicated; F12.20 Cannabis dependence, uncomplicated; F19.282 Other psychoactive substance dependence with psychoactive substance-induced sleep disorder; F19.280 Other psychoactive substance dependence with psychoactive substance-induced anxiety disorder; F41.9 Anxiety disorder, unspecified; Z21 Asymptomatic human immunodeficiency virus [HIV] infection status; I10 Essential (primary) hypertension; J45.30 Mild persistent asthma, uncomplicated; K21.9 Gastro-esophageal reflux disease without esophagitis; H91.91 Unspecified hearing loss, right ear; R63.4 Abnormal weight loss; Z68.22 Body mass index [BMI] 22.0-22.9, adult
CPT/HCPCS: 36415; 80053; 85027; 86780; 87635

== ENCOUNTER 2022-10-27 10:14 | Inpatient (IN) | payer OTHER ==
[2022-10-27 10:43] VITALS: BMI 22.8
[2022-10-27] MEDS ORDERED: ONDANSETRON *ODT* 4 MG TABLET SL PRN (11:23)
[2022-10-27] MEDS ORDERED: BENZONATATE 200 MG CAPSULE PO PRN (11:23)
[2022-10-27] MEDS ORDERED: NALOXONE HCL 0.4 MG/ML VIAL IM PRN (11:23)
[2022-10-27] MEDS ORDERED: chlordiazePOXIDE HCL 25 MG CAPSULE PO PRN (11:23)
[2022-10-27] MEDS ORDERED: BENZOCAINE/MENTHOL (CHLORASEPTIC ) LOZENGE MM PRN (11:23)
[2022-10-27] MEDS ORDERED: DICYCLOMINE HCL 10 MG CAPSULE PO PRN (11:23)
[2022-10-27] MEDS ORDERED: MAGNESIUM HYDROX 2400MG/30ML ORAL SUSPENSION 30 ML CUP PO PRN (11:23)
[2022-10-27] MEDS ORDERED: LOPERAMIDE HCL 2 MG CAPSULE PO PRN (11:23)
[2022-10-27] MEDS ORDERED: guaiFENesin 600 MG TABLET.ER (FP) PO PRN (11:23)
[2022-10-27] MEDS ORDERED: BISMUTH SUBSALICYLATE 524 MG/30 ML PO PRN (11:23)
[2022-10-27] MEDS ORDERED: NALOXONE HCL (KLOXXADO) 8 MG SPRAY NS PRN (11:23)
[2022-10-27] MEDS ORDERED: ACETAMINOPHEN 325 MG TABLET (FP) PO PRN (11:23)
[2022-10-27] MEDS ORDERED: POLYETHYLENE GLYCOL (HEALTHYLAX) 3350 17 GM PACKET PO PRN (11:23)
[2022-10-27] MEDS ORDERED: ALBUTEROL SO4 HFA INHALER IH PRN (11:26)
[2022-10-27] MEDS ORDERED: ONDANSETRON *ODT* 4 MG TABLET ONE (12:13)
[2022-10-27] MEDS: PANTOPRAZOLE 40 MG TABLET PO SCH (14:26)
[2022-10-27] MEDS: NICOTINE POLACRILEX 4 MG GUM BUC PRN (14:29)
[2022-10-27] MEDS ORDERED: methaDONE 40 MG, methaDONE 30 MG PO ONE (14:30)
[2022-10-27] MEDS: chlordiazePOXIDE HCL 25 MG CAPSULE PO SCH ×2 (17:48→22:10)
[2022-10-27] MEDS: THIAMINE HCL 100 MG TABLET (FP) PO SCH (22:09)
[2022-10-27] MEDS: MELATONIN 5 MG TABLETS PO SCH (22:09)
[2022-10-28] MEDS: chlordiazePOXIDE HCL 25 MG CAPSULE PO SCH ×4 (05:52→22:30)
[2022-10-28] MEDS ORDERED: methaDONE HCL 10 MG TABLET PO ONE ×2 (06:00→08:40)
[2022-10-28] MEDS ORDERED: methaDONE 40 MG, methaDONE 30 MG PO ONE ×2 (06:00→09:00)
[2022-10-28] MEDS: ESCITALOPRAM OXALATE 20 MG TABLET PO SCH (09:09)
[2022-10-28] MEDS: PRENATAL VITAMINS W/ FOLIC ACID TABLET (FP) PO SCH (09:09)
[2022-10-28] MEDS: amLODIPine BESYLATE 5 MG TABLET (FP) PO SCH (09:09)
[2022-10-28] MEDS: PANTOPRAZOLE 40 MG TABLET PO SCH (09:09)
[2022-10-28 11:53] LABS: HEMATOCRIT 37.7 % (32.4-45.2); HEMOGLOBIN 12.4 GM/dL (10.7-15.3); MCH 28.3 pg (25.7-33.7); MEAN CELL VOLUME 85.8 fl (80-96); MEAN PLT VOLUME 8.2 fl (7.5-11.1); PLATELET COUNT 232 10^3/uL (134-434); RBC 4.39 M/mm3 (3.60-5.2); RDW 16.5 % (11.6-15.6); WHITE BLOOD COUNT 3.5 K/mm3 (4.0-10.0)
[2022-10-28] MEDS: LACTULOSE 20 GM/30 ML UDC (FOR ORAL USE ONLY) PO SCH ×3 (14:44→22:29)
[2022-10-28] MEDS: THIAMINE HCL 100 MG TABLET (FP) PO SCH (22:29)
[2022-10-28] MEDS: MELATONIN 5 MG TABLETS PO SCH (22:29)
[2022-10-28] MEDS: NICOTINE POLACRILEX 4 MG GUM BUC PRN (22:33)
[2022-10-29] MEDS: chlordiazePOXIDE HCL 25 MG CAPSULE PO SCH ×4 (05:17→22:12)
[2022-10-29] MEDS ORDERED: methaDONE HCL 10 MG TABLET PO SCH (10:00)
[2022-10-29] MEDS: amLODIPine BESYLATE 5 MG TABLET (FP) PO SCH (10:04)
[2022-10-29] MEDS: LACTULOSE 20 GM/30 ML UDC (FOR ORAL USE ONLY) PO SCH ×4 (10:04→22:12)
[2022-10-29] MEDS: ESCITALOPRAM OXALATE 20 MG TABLET PO SCH (10:04)
[2022-10-29] MEDS: PRENATAL VITAMINS W/ FOLIC ACID TABLET (FP) PO SCH (10:05)
[2022-10-29] MEDS: PANTOPRAZOLE 40 MG TABLET PO SCH (10:05)
[2022-10-29] MEDS ORDERED: methaDONE 40 MG, methaDONE 30 MG PO ONE (10:15)
[2022-10-29] MEDS: IBUPROFEN 400 MG TABLET (FP) PO PRN ×2 (11:20→17:34)
[2022-10-29 12:42] LABS: CALCIUM 9.6 mg/dL (8.5-10.1)
[2022-10-29 12:43] LABS: ALBUMIN 3.4 g/dl (3.4-5.0); BLOOD UREA NITROGEN 15.3 mg/dL (7-18)
[2022-10-29 12:46] LABS: CREATININE 0.8 mg/dL (0.55-1.3)
[2022-10-29 12:48] LABS: BILIRUBIN,TOTAL 0.4 mg/dL (0.2-1); TOT PROT 6.8 g/dl (6.4-8.2)
[2022-10-29] MEDS: NICOTINE POLACRILEX 4 MG GUM BUC PRN (16:36)
[2022-10-29 18:09] LABS: HIV INTERPRETATION PRESUMPTIVE POSITIVE (NEGATIVE)
[2022-10-29] MEDS: MAG HYDROX/AL HYDROX/SIMETH 30 ML UNIT-DOSE CUP PO PRN (18:38)
[2022-10-29] MEDS: MELATONIN 5 MG TABLETS PO SCH (22:12)
[2022-10-29] MEDS: THIAMINE HCL 100 MG TABLET (FP) PO SCH (22:12)
[2022-10-30] MEDS ORDERED: chlordiazePOXIDE HCL 10 MG CAPSULE PO PRN
[2022-10-30] MEDS: MAG HYDROX/AL HYDROX/SIMETH 30 ML UNIT-DOSE CUP PO PRN (01:24)
[2022-10-30] MEDS: chlordiazePOXIDE HCL 10 MG CAPSULE PO SCH ×4 (05:50→22:02)
[2022-10-30] MEDS: methaDONE 40 MG, methaDONE 30 MG PO SCH (05:51)
[2022-10-30] MEDS: ESCITALOPRAM OXALATE 20 MG TABLET PO SCH (10:03)
[2022-10-30] MEDS: PANTOPRAZOLE 40 MG TABLET PO SCH (10:03)
[2022-10-30] MEDS: PRENATAL VITAMINS W/ FOLIC ACID TABLET (FP) PO SCH (10:03)
[2022-10-30] MEDS: amLODIPine BESYLATE 5 MG TABLET (FP) PO SCH (10:03)
[2022-10-30] MEDS: LACTULOSE 20 GM/30 ML UDC (FOR ORAL USE ONLY) PO SCH ×4 (10:03→22:02)
[2022-10-30] MEDS: MELATONIN 5 MG TABLETS PO SCH (22:02)
[2022-10-30] MEDS: THIAMINE HCL 100 MG TABLET (FP) PO SCH (22:02)
[2022-10-31] MEDS: chlordiazePOXIDE HCL 10 MG CAPSULE PO SCH ×2 (05:29→17:37)
[2022-10-31] MEDS: methaDONE 40 MG, methaDONE 30 MG PO SCH (05:29)
[2022-10-31] MEDS: amLODIPine BESYLATE 5 MG TABLET (FP) PO SCH (09:36)
[2022-10-31] MEDS: LACTULOSE 20 GM/30 ML UDC (FOR ORAL USE ONLY) PO SCH ×4 (09:36→22:15)
[2022-10-31] MEDS: ESCITALOPRAM OXALATE 20 MG TABLET PO SCH (09:36)
[2022-10-31] MEDS: PANTOPRAZOLE 40 MG TABLET PO SCH (09:36)
[2022-10-31] MEDS: PRENATAL VITAMINS W/ FOLIC ACID TABLET (FP) PO SCH (09:36)
[2022-10-31] MEDS ORDERED: traZODone HCL 50 MG TABLET (FP) PO PRN (22:00)
[2022-10-31] MEDS: MELATONIN 5 MG TABLETS PO SCH (22:15)
[2022-10-31] MEDS: THIAMINE HCL 100 MG TABLET (FP) PO SCH (22:15)
[2022-11-01] MEDS ORDERED: chlordiazePOXIDE HCL 10 MG CAPSULE PO ONE (05:00)
[2022-11-01] MEDS: methaDONE 40 MG, methaDONE 30 MG PO SCH (05:45)
[2022-11-01 09:43] VITALS: BP 94/62; PULSE 71; RESP 18; TEMP 97.5
[2022-11-01] MEDS: PANTOPRAZOLE 40 MG TABLET PO SCH (10:21)
[2022-11-01] MEDS: LACTULOSE 20 GM/30 ML UDC (FOR ORAL USE ONLY) PO SCH (10:21)
[2022-11-01] MEDS: PRENATAL VITAMINS W/ FOLIC ACID TABLET (FP) PO SCH (10:21)
[2022-11-01] MEDS: amLODIPine BESYLATE 5 MG TABLET (FP) PO SCH (10:22)
[2022-11-01] MEDS: ESCITALOPRAM OXALATE 20 MG TABLET PO SCH (10:22)
== END 2022-11-01 10:41 | disposition home or self-care (01) | DRG 773 ==
LOC: YASAS 10:14 → Y3N 13:35
PROVIDERS: ADMIT Allergy & Immunology; ATTEND Surgery
PROC: HZ2ZZZZ Detoxification Services for Substance Abuse Treatment (ICD-10-PCS; principal; 2022-10-27)
DX: F11.23 Opioid dependence with withdrawal (principal); F10.230 Alcohol dependence with withdrawal, uncomplicated; F14.20 Cocaine dependence, uncomplicated; F12.20 Cannabis dependence, uncomplicated; F17.210 Nicotine dependence, cigarettes, uncomplicated; Z21 Asymptomatic human immunodeficiency virus [HIV] infection status; E72.20 Disorder of urea cycle metabolism, unspecified; I10 Essential (primary) hypertension; K21.9 Gastro-esophageal reflux disease without esophagitis; H91.93 Unspecified hearing loss, bilateral
CPT/HCPCS: 36415; 80053; 82140; 85027; 86780; 87389; 87635; Q0162

== ENCOUNTER 2022-11-24 12:38 | Inpatient (IN) | payer OTHER ==
[2022-11-24 13:58] VITALS: BMI 21.9
[2022-11-24] MEDS ORDERED: IBUPROFEN 400 MG TABLET (FP) PO PRN (14:17)
[2022-11-24] MEDS ORDERED: hydrOXYzine PAMOATE 25 MG CAPSULE (FP) PO PRN (14:17)
[2022-11-24] MEDS ORDERED: DICYCLOMINE HCL 10 MG CAPSULE PO PRN (14:17)
[2022-11-24] MEDS ORDERED: BENZOCAINE/MENTHOL (CHLORASEPTIC ) LOZENGE MM PRN (14:17)
[2022-11-24] MEDS ORDERED: NALOXONE HCL 0.4 MG/ML VIAL IM PRN (14:17)
[2022-11-24] MEDS ORDERED: MAG HYDROX/AL HYDROX/SIMETH 30 ML UNIT-DOSE CUP PO PRN (14:17)
[2022-11-24] MEDS ORDERED: BISMUTH SUBSALICYLATE 524 MG/30 ML PO PRN (14:17)
[2022-11-24] MEDS ORDERED: METHOCARBAMOL 500 MG TABLET PO PRN (14:17)
[2022-11-24] MEDS ORDERED: guaiFENesin 600 MG TABLET.ER (FP) PO PRN (14:17)
[2022-11-24] MEDS ORDERED: NALOXONE HCL (KLOXXADO) 8 MG SPRAY NS PRN (14:17)
[2022-11-24] MEDS ORDERED: ACETAMINOPHEN 325 MG TABLET (FP) PO PRN (14:17)
[2022-11-24] MEDS ORDERED: chlordiazePOXIDE HCL 25 MG CAPSULE PO PRN (14:17)
[2022-11-24] MEDS ORDERED: IBUPROFEN 600 MG TABLET (FP) PO PRN (14:17)
[2022-11-24] MEDS ORDERED: POLYETHYLENE GLYCOL (HEALTHYLAX) 3350 17 GM PACKET PO PRN (14:17)
[2022-11-24] MEDS ORDERED: LOPERAMIDE HCL 2 MG CAPSULE PO PRN (14:17)
[2022-11-24] MEDS ORDERED: BENZONATATE 200 MG CAPSULE PO PRN (14:17)
[2022-11-24] MEDS ORDERED: ONDANSETRON *ODT* 4 MG TABLET SL PRN (14:17)
[2022-11-24] MEDS ORDERED: ALBUTEROL SO4 HFA INHALER IH PRN (15:12)
[2022-11-24] MEDS: chlordiazePOXIDE HCL 25 MG CAPSULE PO SCH ×2 (17:43→22:08)
[2022-11-24] MEDS: THIAMINE HCL 100 MG TABLET (FP) PO SCH (22:07)
[2022-11-24] MEDS: MELATONIN 5 MG TABLETS PO SCH (22:08)
[2022-11-25] MEDS: chlordiazePOXIDE HCL 25 MG CAPSULE PO SCH ×4 (05:13→22:06)
[2022-11-25] MEDS: methaDONE 40 MG, methaDONE 30 MG PO SCH (05:14)
[2022-11-25] MEDS ORDERED: methaDONE HCL 10 MG TABLET PO SCH (06:00)
[2022-11-25 09:36] LABS: HEMATOCRIT 34.2 % (32.4-45.2); HEMOGLOBIN 10.9 GM/dL (10.7-15.3); MCH 28.1 pg (25.7-33.7); MCHC 31.9 g/dl (32.0-36.0); MEAN CELL VOLUME 88.1 fl (80-96); MEAN PLT VOLUME 8.3 fl (7.5-11.1); PLATELET COUNT 285 10^3/uL (134-434); RBC 3.88 M/mm3 (3.60-5.2); RDW 16.7 % (11.6-15.6)
[2022-11-25 09:38] LABS: POTASSIUM 4.6 mmol/L (3.5-5.1)
[2022-11-25 09:50] LABS: CALCIUM 9.3 mg/dL (8.5-10.1)
[2022-11-25 09:51] LABS: ALBUMIN 3.4 g/dl (3.4-5.0); BLOOD UREA NITROGEN 17.9 mg/dL (7-18)
[2022-11-25 09:54] LABS: CREATININE 0.8 mg/dL (0.55-1.3)
[2022-11-25 09:55] LABS: TOT PROT 6.9 g/dl (6.4-8.2)
[2022-11-25 09:56] LABS: BILIRUBIN,TOTAL 0.3 mg/dL (0.2-1)
[2022-11-25] MEDS: PRENATAL VITAMINS W/ FOLIC ACID TABLET (FP) PO SCH (10:07)
[2022-11-25] MEDS: amLODIPine BESYLATE 5 MG TABLET (FP) PO SCH (10:07)
[2022-11-25] MEDS: NICOTINE 14 MG/24 HOURS TOPICAL PATCH TD SCH (10:07)
[2022-11-25] MEDS: PANTOPRAZOLE 40 MG TABLET PO SCH (10:08)
[2022-11-25] MEDS ORDERED: TUBERCULIN PPD 5 TU/0.1ML VIAL ID ONE (11:09)
[2022-11-25] MEDS: ESCITALOPRAM OXALATE 10 MG TABLET PO SCH (11:33)
[2022-11-25] MEDS: traZODone HCL 50 MG TABLET (FP) PO SCH (22:05)
[2022-11-25] MEDS: MELATONIN 5 MG TABLETS PO SCH (22:05)
[2022-11-25] MEDS: THIAMINE HCL 100 MG TABLET (FP) PO SCH (22:05)
[2022-11-26] MEDS: methaDONE 40 MG, methaDONE 30 MG PO SCH (05:34)
[2022-11-26] MEDS: chlordiazePOXIDE HCL 25 MG CAPSULE PO SCH ×4 (05:35→22:05)
[2022-11-26] MEDS: amLODIPine BESYLATE 5 MG TABLET (FP) PO SCH (10:20)
[2022-11-26] MEDS: NICOTINE 14 MG/24 HOURS TOPICAL PATCH TD SCH (10:20)
[2022-11-26] MEDS: ESCITALOPRAM OXALATE 10 MG TABLET PO SCH (10:20)
[2022-11-26] MEDS: PANTOPRAZOLE 40 MG TABLET PO SCH (10:21)
[2022-11-26] MEDS: PRENATAL VITAMINS W/ FOLIC ACID TABLET (FP) PO SCH (10:21)
[2022-11-26] MEDS: MAGNESIUM HYDROX 2400MG/30ML ORAL SUSPENSION 30 ML CUP PO PRN ×2 (13:52→17:21)
[2022-11-26] MEDS: THIAMINE HCL 100 MG TABLET (FP) PO SCH (22:04)
[2022-11-26] MEDS: MELATONIN 5 MG TABLETS PO SCH (22:04)
[2022-11-26] MEDS: traZODone HCL 50 MG TABLET (FP) PO SCH (22:05)
[2022-11-27] MEDS ORDERED: chlordiazePOXIDE HCL 10 MG CAPSULE PO PRN
[2022-11-27] MEDS: chlordiazePOXIDE HCL 10 MG CAPSULE PO SCH ×4 (05:25→22:06)
[2022-11-27] MEDS: methaDONE 40 MG, methaDONE 30 MG PO SCH (05:26)
[2022-11-27] MEDS: PRENATAL VITAMINS W/ FOLIC ACID TABLET (FP) PO SCH (10:08)
[2022-11-27] MEDS: ESCITALOPRAM OXALATE 10 MG TABLET PO SCH (10:10)
[2022-11-27] MEDS: NICOTINE POLACRILEX 2 MG GUM BUC PRN ×2 (10:11→12:52)
[2022-11-27] MEDS: NICOTINE 14 MG/24 HOURS TOPICAL PATCH TD SCH (10:12)
[2022-11-27] MEDS: PANTOPRAZOLE 40 MG TABLET PO SCH (10:13)
[2022-11-27] MEDS: amLODIPine BESYLATE 5 MG TABLET (FP) PO SCH (10:13)
[2022-11-27] MEDS: guaiFENesin 600 MG TABLET.ER (FP) PO SCH ×2 (10:13→22:06)
[2022-11-27] MEDS: traZODone HCL 50 MG TABLET (FP) PO SCH (22:06)
[2022-11-27] MEDS: MELATONIN 5 MG TABLETS PO SCH (22:06)
[2022-11-27] MEDS: THIAMINE HCL 100 MG TABLET (FP) PO SCH (22:06)
[2022-11-28] MEDS: chlordiazePOXIDE HCL 10 MG CAPSULE PO SCH ×2 (05:29→17:20)
[2022-11-28] MEDS: methaDONE 40 MG, methaDONE 30 MG PO SCH (05:30)
[2022-11-28] MEDS: PANTOPRAZOLE 40 MG TABLET PO SCH (09:43)
[2022-11-28] MEDS: amLODIPine BESYLATE 5 MG TABLET (FP) PO SCH (09:43)
[2022-11-28] MEDS: PRENATAL VITAMINS W/ FOLIC ACID TABLET (FP) PO SCH (09:43)
[2022-11-28] MEDS: guaiFENesin 600 MG TABLET.ER (FP) PO SCH ×2 (09:43→22:12)
[2022-11-28] MEDS: ESCITALOPRAM OXALATE 10 MG TABLET PO SCH (09:43)
[2022-11-28] MEDS: NICOTINE 14 MG/24 HOURS TOPICAL PATCH TD SCH (09:45)
[2022-11-28] MEDS: THIAMINE HCL 100 MG TABLET (FP) PO SCH (22:12)
[2022-11-28] MEDS: MELATONIN 5 MG TABLETS PO SCH (22:12)
[2022-11-28] MEDS: traZODone HCL 50 MG TABLET (FP) PO SCH (22:12)
[2022-11-29] MEDS ORDERED: chlordiazePOXIDE HCL 10 MG CAPSULE PO ONE (05:00)
[2022-11-29] MEDS: methaDONE 40 MG, methaDONE 30 MG PO SCH (05:31)
[2022-11-29] MEDS: amLODIPine BESYLATE 5 MG TABLET (FP) PO SCH (09:34)
[2022-11-29] MEDS: ESCITALOPRAM OXALATE 10 MG TABLET PO SCH (09:37)
[2022-11-29] MEDS: PANTOPRAZOLE 40 MG TABLET PO SCH (09:37)
[2022-11-29] MEDS: NICOTINE 14 MG/24 HOURS TOPICAL PATCH TD SCH (09:38)
[2022-11-29 09:42] VITALS: BP 103/62; PULSE 71; RESP 16; TEMP 97.8
[2022-11-29] MEDS: PRENATAL VITAMINS W/ FOLIC ACID TABLET (FP) PO SCH (09:42)
[2022-11-29] MEDS: guaiFENesin 600 MG TABLET.ER (FP) PO SCH (09:42)
== END 2022-11-29 09:55 | disposition home or self-care (01) | DRG 773 ==
LOC: YASAS 12:38 → Y6N 15:35
PROVIDERS: ADMIT Allergy & Immunology; ATTEND Surgery
PROC: HZ2ZZZZ Detoxification Services for Substance Abuse Treatment (ICD-10-PCS; principal; 2022-11-24)
DX: F10.230 Alcohol dependence with withdrawal, uncomplicated (principal); F11.20 Opioid dependence, uncomplicated; F14.20 Cocaine dependence, uncomplicated; F17.210 Nicotine dependence, cigarettes, uncomplicated; F19.280 Other psychoactive substance dependence with psychoactive substance-induced anxiety disorder; F32.9 Major depressive disorder, single episode, unspecified; Z21 Asymptomatic human immunodeficiency virus [HIV] infection status; H91.91 Unspecified hearing loss, right ear; J45.20 Mild intermittent asthma, uncomplicated; K21.9 Gastro-esophageal reflux disease without esophagitis; R26.2 Difficulty in walking, not elsewhere classified; Z99.89 Dependence on other enabling machines and devices
CPT/HCPCS: 36415; 80053; 85027; 86780; 87635

== ENCOUNTER 2023-01-06 09:53 | Inpatient (IN) | payer OTHER ==
[2023-01-06 11:37] VITALS: BMI 21.2
[2023-01-06] MEDS ORDERED: hydrOXYzine PAMOATE 25 MG CAPSULE (FP) PO PRN (11:59)
[2023-01-06] MEDS ORDERED: ONDANSETRON *ODT* 4 MG TABLET SL PRN (11:59)
[2023-01-06] MEDS ORDERED: DICYCLOMINE HCL 10 MG CAPSULE PO PRN (11:59)
[2023-01-06] MEDS ORDERED: BISMUTH SUBSALICYLATE 524 MG/30 ML PO PRN (11:59)
[2023-01-06] MEDS ORDERED: chlordiazePOXIDE HCL 25 MG CAPSULE PO PRN (11:59)
[2023-01-06] MEDS ORDERED: POLYETHYLENE GLYCOL (HEALTHYLAX) 3350 17 GM PACKET PO PRN (11:59)
[2023-01-06] MEDS ORDERED: IBUPROFEN 600 MG TABLET (FP) PO PRN (11:59)
[2023-01-06] MEDS ORDERED: BENZOCAINE/MENTHOL (CHLORASEPTIC ) LOZENGE MM PRN (11:59)
[2023-01-06] MEDS ORDERED: guaiFENesin 600 MG TABLET.ER (FP) PO PRN (11:59)
[2023-01-06] MEDS ORDERED: BENZONATATE 200 MG CAPSULE PO PRN (11:59)
[2023-01-06] MEDS ORDERED: NALOXONE HCL 0.4 MG/ML VIAL IM PRN (11:59)
[2023-01-06] MEDS ORDERED: NALOXONE HCL (KLOXXADO) 8 MG SPRAY NS PRN (11:59)
[2023-01-06] MEDS ORDERED: LOPERAMIDE HCL 2 MG CAPSULE PO PRN (11:59)
[2023-01-06] MEDS ORDERED: IBUPROFEN 400 MG TABLET (FP) PO PRN (11:59)
[2023-01-06] MEDS ORDERED: ACETAMINOPHEN 325 MG TABLET (FP) PO PRN (11:59)
[2023-01-06] MEDS ORDERED: METHOCARBAMOL 500 MG TABLET PO PRN (11:59)
[2023-01-06] MEDS ORDERED: chlordiazePOXIDE HCL 25 MG CAPSULE ONE (13:24)
[2023-01-06] MEDS ORDERED: IBUPROFEN 400 MG TABLET (FP) PO ONE (13:24)
[2023-01-06] MEDS ORDERED: NICOTINE POLACRILEX 2 MG GUM ONE (13:25)
[2023-01-06] MEDS: NICOTINE POLACRILEX 2 MG GUM BUC PRN (13:33)
[2023-01-06] MEDS: MAG HYDROX/AL HYDROX/SIMETH 30 ML UNIT-DOSE CUP PO PRN (17:17)
[2023-01-06] MEDS: chlordiazePOXIDE HCL 25 MG CAPSULE PO SCH ×2 (17:18→22:27)
[2023-01-06] MEDS ORDERED: amLODIPine BESYLATE 5 MG TABLET (FP) PO ONE (20:52)
[2023-01-06] MEDS: MELATONIN 5 MG TABLETS PO SCH (22:26)
[2023-01-06] MEDS: THIAMINE HCL 100 MG TABLET (FP) PO SCH (22:26)
[2023-01-07] MEDS: chlordiazePOXIDE HCL 25 MG CAPSULE PO SCH ×4 (05:48→22:11)
[2023-01-07] MEDS: PRENATAL VITAMINS W/ FOLIC ACID TABLET (FP) PO SCH (10:09)
[2023-01-07] MEDS: PANTOPRAZOLE 40 MG TABLET PO SCH (10:09)
[2023-01-07] MEDS: ESCITALOPRAM OXALATE 20 MG TABLET PO SCH (10:09)
[2023-01-07] MEDS: ALBUTEROL SO4 HFA INHALER IH PRN (10:09)
[2023-01-07] MEDS: amLODIPine BESYLATE 5 MG TABLET (FP) PO SCH (10:09)
[2023-01-07 10:16] LABS: HEMATOCRIT 37.5 % (32.4-45.2); HEMOGLOBIN 11.8 GM/dL (10.7-15.3); MCH 27.6 pg (25.7-33.7); MCHC 31.5 g/dl (32.0-36.0); MEAN CELL VOLUME 87.4 fl (80-96); MEAN PLT VOLUME 7.7 fl (7.5-11.1); PLATELET COUNT 310 10^3/uL (134-434); RBC 4.29 M/mm3 (3.60-5.2); RDW 15.4 % (11.6-15.6); WHITE BLOOD COUNT 3.3 K/mm3 (4.0-10.0)
[2023-01-07 10:22] LABS: POTASSIUM 4.2 mmol/L (3.5-5.1)
[2023-01-07 10:25] LABS: CALCIUM 9.1 mg/dL (8.5-10.1)
[2023-01-07 10:26] LABS: ALBUMIN 3.3 g/dl (3.4-5.0); BLOOD UREA NITROGEN 23.4 mg/dL (7-18)
[2023-01-07 10:29] LABS: TOT PROT 6.7 g/dl (6.4-8.2)
[2023-01-07 10:30] LABS: BILIRUBIN,TOTAL 0.8 mg/dL (0.2-1); CREATININE 0.8 mg/dL (0.55-1.3)
[2023-01-07] MEDS: MAG HYDROX/AL HYDROX/SIMETH 30 ML UNIT-DOSE CUP PO PRN (17:19)
[2023-01-07] MEDS: THIAMINE HCL 100 MG TABLET (FP) PO SCH (22:11)
[2023-01-07] MEDS: MELATONIN 5 MG TABLETS PO SCH (22:11)
[2023-01-07] MEDS: traZODone HCL 50 MG TABLET (FP) PO SCH (22:11)
[2023-01-08] MEDS: chlordiazePOXIDE HCL 25 MG CAPSULE PO SCH ×4 (05:42→22:23)
[2023-01-08] MEDS: ESCITALOPRAM OXALATE 20 MG TABLET PO SCH (10:06)
[2023-01-08] MEDS: amLODIPine BESYLATE 5 MG TABLET (FP) PO SCH (10:06)
[2023-01-08] MEDS: PANTOPRAZOLE 40 MG TABLET PO SCH (10:06)
[2023-01-08] MEDS: PRENATAL VITAMINS W/ FOLIC ACID TABLET (FP) PO SCH (10:06)
[2023-01-08] MEDS ORDERED: methaDONE HCL 10 MG TABLET PO SCH (10:15)
[2023-01-08] MEDS: methaDONE 40 MG, methaDONE 20 MG PO SCH (10:37)
[2023-01-08] MEDS: NICOTINE POLACRILEX 2 MG GUM BUC PRN (15:15)
[2023-01-08] MEDS: THIAMINE HCL 100 MG TABLET (FP) PO SCH (22:23)
[2023-01-08] MEDS: MELATONIN 5 MG TABLETS PO SCH (22:23)
[2023-01-08] MEDS: traZODone HCL 50 MG TABLET (FP) PO SCH (22:23)
[2023-01-09] MEDS ORDERED: chlordiazePOXIDE HCL 10 MG CAPSULE PO PRN
[2023-01-09] MEDS: chlordiazePOXIDE HCL 10 MG CAPSULE PO SCH ×4 (05:11→22:08)
[2023-01-09] MEDS: methaDONE 40 MG, methaDONE 20 MG PO SCH (05:12)
[2023-01-09] MEDS: MAG HYDROX/AL HYDROX/SIMETH 30 ML UNIT-DOSE CUP PO PRN ×2 (06:20→19:12)
[2023-01-09] MEDS: ESCITALOPRAM OXALATE 20 MG TABLET PO SCH (10:08)
[2023-01-09] MEDS: amLODIPine BESYLATE 5 MG TABLET (FP) PO SCH (10:09)
[2023-01-09] MEDS: PANTOPRAZOLE 40 MG TABLET PO SCH (10:09)
[2023-01-09] MEDS: PRENATAL VITAMINS W/ FOLIC ACID TABLET (FP) PO SCH (10:09)
[2023-01-09] MEDS: NICOTINE 14 MG/24 HOURS TOPICAL PATCH TD SCH (10:09)
[2023-01-09] MEDS: MAGNESIUM HYDROX 2400MG/30ML ORAL SUSPENSION 30 ML CUP PO PRN (22:07)
[2023-01-09] MEDS: THIAMINE HCL 100 MG TABLET (FP) PO SCH (22:08)
[2023-01-09] MEDS: traZODone HCL 50 MG TABLET (FP) PO SCH (22:08)
[2023-01-09] MEDS: MELATONIN 5 MG TABLETS PO SCH (22:12)
[2023-01-10] MEDS: chlordiazePOXIDE HCL 10 MG CAPSULE PO SCH ×2 (05:27→17:20)
[2023-01-10] MEDS: methaDONE 40 MG, methaDONE 20 MG PO SCH (05:27)
[2023-01-10] MEDS: ESCITALOPRAM OXALATE 20 MG TABLET PO SCH (10:05)
[2023-01-10] MEDS: PRENATAL VITAMINS W/ FOLIC ACID TABLET (FP) PO SCH (10:05)
[2023-01-10] MEDS: PANTOPRAZOLE 40 MG TABLET PO SCH (10:05)
[2023-01-10] MEDS: NICOTINE 14 MG/24 HOURS TOPICAL PATCH TD SCH (10:06)
[2023-01-10] MEDS: amLODIPine BESYLATE 5 MG TABLET (FP) PO SCH (10:07)
[2023-01-10] MEDS: MAGNESIUM HYDROX 2400MG/30ML ORAL SUSPENSION 30 ML CUP PO PRN (15:34)
[2023-01-10 20:49] VITALS: TEMP 97.7
[2023-01-10] MEDS: THIAMINE HCL 100 MG TABLET (FP) PO SCH (22:05)
[2023-01-10] MEDS: traZODone HCL 50 MG TABLET (FP) PO SCH (22:05)
[2023-01-10] MEDS: MELATONIN 5 MG TABLETS PO SCH (22:05)
[2023-01-10] MEDS: ALBUTEROL SO4 HFA INHALER IH PRN (22:05)
[2023-01-11] MEDS ORDERED: chlordiazePOXIDE HCL 10 MG CAPSULE PO ONE (05:00)
[2023-01-11] MEDS: methaDONE 40 MG, methaDONE 20 MG PO SCH (05:30)
[2023-01-11] MEDS: ESCITALOPRAM OXALATE 20 MG TABLET PO SCH (09:08)
[2023-01-11] MEDS: amLODIPine BESYLATE 5 MG TABLET (FP) PO SCH (09:08)
[2023-01-11] MEDS: NICOTINE 14 MG/24 HOURS TOPICAL PATCH TD SCH (09:08)
[2023-01-11] MEDS: PANTOPRAZOLE 40 MG TABLET PO SCH (09:09)
[2023-01-11] MEDS: PRENATAL VITAMINS W/ FOLIC ACID TABLET (FP) PO SCH (09:09)
[2023-01-11 09:45] VITALS: BP 108/65; PULSE 74; RESP 16
== END 2023-01-11 09:08 | disposition home or self-care (01) | DRG 773 ==
LOC: YASAS 09:53 → Y6N 12:33 → Y3N 13:46
PROVIDERS: ADMIT Allergy & Immunology; ATTEND Surgery
PROC: HZ2ZZZZ Detoxification Services for Substance Abuse Treatment (ICD-10-PCS; principal; 2023-01-06)
DX: F11.23 Opioid dependence with withdrawal (principal); F10.230 Alcohol dependence with withdrawal, uncomplicated; F14.20 Cocaine dependence, uncomplicated; F12.20 Cannabis dependence, uncomplicated; F17.210 Nicotine dependence, cigarettes, uncomplicated; F19.282 Other psychoactive substance dependence with psychoactive substance-induced sleep disorder; Z21 Asymptomatic human immunodeficiency virus [HIV] infection status; H91.91 Unspecified hearing loss, right ear; I10 Essential (primary) hypertension; K21.9 Gastro-esophageal reflux disease without esophagitis; J45.30 Mild persistent asthma, uncomplicated; M19.041 Primary osteoarthritis, right hand; M19.042 Primary osteoarthritis, left hand
CPT/HCPCS: 36415; 80053; 80307; 85027; 86780; 87635

== ENCOUNTER 2023-02-13 11:42 | Inpatient (IN) | payer OTHER ==
[2023-02-13 12:21] VITALS: BMI 22.4
[2023-02-13] MEDS ORDERED: MAGNESIUM HYDROX 2400MG/30ML ORAL SUSPENSION 30 ML CUP PO PRN (14:29)
[2023-02-13] MEDS ORDERED: LOPERAMIDE HCL 2 MG CAPSULE PO PRN (14:29)
[2023-02-13] MEDS ORDERED: NALOXONE HCL (KLOXXADO) 8 MG SPRAY NS PRN (14:29)
[2023-02-13] MEDS ORDERED: guaiFENesin 600 MG TABLET.ER (FP) PO PRN (14:29)
[2023-02-13] MEDS ORDERED: BENZOCAINE/MENTHOL (CHLORASEPTIC ) LOZENGE MM PRN (14:29)
[2023-02-13] MEDS ORDERED: IBUPROFEN 400 MG TABLET (FP) PO PRN (14:29)
[2023-02-13] MEDS ORDERED: BISMUTH SUBSALICYLATE 262 MG/15 ML BTL PO PRN (14:29)
[2023-02-13] MEDS ORDERED: POLYETHYLENE GLYCOL (HEALTHYLAX) 3350 17 GM PACKET PO PRN (14:29)
[2023-02-13] MEDS ORDERED: BENZONATATE 200 MG CAPSULE PO PRN (14:29)
[2023-02-13] MEDS ORDERED: NALOXONE HCL 0.4 MG/ML VIAL IM PRN (14:29)
[2023-02-13] MEDS ORDERED: NICOTINE POLACRILEX 2 MG GUM BUC PRN (14:29)
[2023-02-13] MEDS ORDERED: ONDANSETRON *ODT* 4 MG TABLET SL PRN (14:29)
[2023-02-13] MEDS ORDERED: chlordiazePOXIDE HCL 25 MG CAPSULE PO PRN (14:34)
[2023-02-13] MEDS: chlordiazePOXIDE HCL 25 MG CAPSULE PO SCH ×2 (16:54→22:44)
[2023-02-13] MEDS ORDERED: ALBUTEROL SO4 HFA INHALER IH PRN (19:15)
[2023-02-13] MEDS: amLODIPine BESYLATE 2.5 MG TABLET (FP) PO SCH (19:40)
[2023-02-13] MEDS: IBUPROFEN 600 MG TABLET (FP) PO PRN (19:40)
[2023-02-13] MEDS ORDERED: MELATONIN 5 MG TABLETS PO SCH (22:00)
[2023-02-13] MEDS: THIAMINE HCL 100 MG TABLET (FP) PO SCH (22:44)
[2023-02-14] MEDS: IBUPROFEN 600 MG TABLET (FP) PO PRN (05:34)
[2023-02-14] MEDS: chlordiazePOXIDE HCL 25 MG CAPSULE PO SCH ×4 (05:34→22:05)
[2023-02-14 08:34] LABS: HEMATOCRIT 37.4 % (32.4-45.2); HEMOGLOBIN 12.2 GM/dL (10.7-15.3); MCH 28.3 pg (25.7-33.7); MCHC 32.6 g/dl (32.0-36.0); MEAN CELL VOLUME 86.7 fl (80-96); MEAN PLT VOLUME 7.7 fl (7.5-11.1); PLATELET COUNT 239 10^3/uL (134-434); RBC 4.31 M/mm3 (3.60-5.2); RDW 16.3 % (11.6-15.6); WHITE BLOOD COUNT 3.8 K/mm3 (4.0-10.0)
[2023-02-14 08:51] LABS: CHLORIDE 102 mmol/L (98-107); POTASSIUM 4.2 mmol/L (3.5-5.1); SODIUM 138 mmol/L (136-145)
[2023-02-14 08:53] LABS: CALCIUM 9.9 mg/dL (8.5-10.1)
[2023-02-14 08:54] LABS: ALBUMIN 3.9 g/dl (3.4-5.0); ANION GAP 10 mmol/L (4-13); BLOOD UREA NITROGEN 20.2 mg/dL (7-18); CO2 26 mmol/L (21-32); GLUCOSE,RANDOM 122 mg/dL (74-106)
[2023-02-14 08:56] LABS: CREATININE 0.7 mg/dL (0.55-1.3)
[2023-02-14 08:57] LABS: SGOT/AST 31 U/L (15-37); SGPT/ALT 30 U/L (13-61)
[2023-02-14 08:58] LABS: BILIRUBIN,TOTAL 0.7 mg/dL (0.2-1); TOT PROT 7.5 g/dl (6.4-8.2)
[2023-02-14 08:59] LABS: ALK PHOS 93 U/L (45-117)
[2023-02-14] MEDS ORDERED: methaDONE HCL 10 MG TABLET PO SCH (09:15)
[2023-02-14] MEDS: NICOTINE 14 MG/24 HOURS TOPICAL PATCH TD SCH (10:09)
[2023-02-14] MEDS: ESCITALOPRAM OXALATE 20 MG TABLET PO SCH (10:11)
[2023-02-14] MEDS: PANTOPRAZOLE 40 MG TABLET PO SCH (10:11)
[2023-02-14] MEDS: DOCUSATE SODIUM 100 MG CAPSULE (FP) PO SCH (10:11)
[2023-02-14] MEDS: methaDONE 40 MG, methaDONE 10 MG PO SCH (10:11)
[2023-02-14] MEDS: PRENATAL VITAMINS W/ FOLIC ACID TABLET (FP) PO SCH (10:11)
[2023-02-14] MEDS: amLODIPine BESYLATE 2.5 MG TABLET (FP) PO SCH (10:12)
[2023-02-14] MEDS: traZODone HCL 50 MG TABLET (FP) PO SCH (22:04)
[2023-02-14] MEDS: THIAMINE HCL 100 MG TABLET (FP) PO SCH (22:05)
[2023-02-14] MEDS: ACETAMINOPHEN 325 MG TABLET (FP) PO PRN (22:05)
[2023-02-15] MEDS: methaDONE 40 MG, methaDONE 10 MG PO SCH (05:26)
[2023-02-15] MEDS: chlordiazePOXIDE HCL 25 MG CAPSULE PO SCH ×4 (05:26→22:04)
[2023-02-15] MEDS: ACETAMINOPHEN 325 MG TABLET (FP) PO PRN (05:29)
[2023-02-15] MEDS: PRENATAL VITAMINS W/ FOLIC ACID TABLET (FP) PO SCH (10:13)
[2023-02-15] MEDS: amLODIPine BESYLATE 2.5 MG TABLET (FP) PO SCH (10:17)
[2023-02-15] MEDS: NICOTINE 14 MG/24 HOURS TOPICAL PATCH TD SCH (10:17)
[2023-02-15] MEDS: PANTOPRAZOLE 40 MG TABLET PO SCH (10:17)
[2023-02-15] MEDS: ESCITALOPRAM OXALATE 20 MG TABLET PO SCH (10:18)
[2023-02-15] MEDS: DOCUSATE SODIUM 100 MG CAPSULE (FP) PO SCH (10:18)
[2023-02-15] MEDS: IBUPROFEN 600 MG TABLET (FP) PO PRN (17:23)
[2023-02-15] MEDS: THIAMINE HCL 100 MG TABLET (FP) PO SCH (22:04)
[2023-02-15] MEDS: traZODone HCL 50 MG TABLET (FP) PO SCH (22:04)
[2023-02-16] MEDS ORDERED: chlordiazePOXIDE HCL 10 MG CAPSULE PO PRN
[2023-02-16] MEDS: methaDONE 40 MG, methaDONE 10 MG PO SCH (05:26)
[2023-02-16] MEDS: chlordiazePOXIDE HCL 10 MG CAPSULE PO SCH ×4 (05:26→22:03)
[2023-02-16] MEDS: ACETAMINOPHEN 325 MG TABLET (FP) PO PRN ×2 (05:28→17:54)
[2023-02-16] MEDS: MAG HYDROX/AL HYDROX/SIMETH 30 ML UNIT-DOSE CUP PO PRN ×2 (06:41→19:59)
[2023-02-16] MEDS: DOCUSATE SODIUM 100 MG CAPSULE (FP) PO SCH (10:08)
[2023-02-16] MEDS: PRENATAL VITAMINS W/ FOLIC ACID TABLET (FP) PO SCH (10:08)
[2023-02-16] MEDS: ESCITALOPRAM OXALATE 20 MG TABLET PO SCH (10:09)
[2023-02-16] MEDS: PANTOPRAZOLE 40 MG TABLET PO SCH (10:09)
[2023-02-16] MEDS: amLODIPine BESYLATE 2.5 MG TABLET (FP) PO SCH (10:09)
[2023-02-16] MEDS: NICOTINE 14 MG/24 HOURS TOPICAL PATCH TD SCH (10:09)
[2023-02-16] MEDS: traZODone HCL 50 MG TABLET (FP) PO SCH (22:03)
[2023-02-16] MEDS: THIAMINE HCL 100 MG TABLET (FP) PO SCH (22:03)
[2023-02-17] MEDS: chlordiazePOXIDE HCL 10 MG CAPSULE PO SCH ×2 (05:27→17:25)
[2023-02-17] MEDS: methaDONE 40 MG, methaDONE 10 MG PO SCH (05:27)
[2023-02-17] MEDS: DOCUSATE SODIUM 100 MG CAPSULE (FP) PO SCH (10:11)
[2023-02-17] MEDS: amLODIPine BESYLATE 2.5 MG TABLET (FP) PO SCH (10:11)
[2023-02-17] MEDS: ESCITALOPRAM OXALATE 20 MG TABLET PO SCH (10:11)
[2023-02-17] MEDS: PRENATAL VITAMINS W/ FOLIC ACID TABLET (FP) PO SCH (10:11)
[2023-02-17] MEDS: NICOTINE 14 MG/24 HOURS TOPICAL PATCH TD SCH (10:11)
[2023-02-17] MEDS: PANTOPRAZOLE 40 MG TABLET PO SCH (10:11)
[2023-02-17] MEDS: traZODone HCL 50 MG TABLET (FP) PO SCH (22:06)
[2023-02-17] MEDS: THIAMINE HCL 100 MG TABLET (FP) PO SCH (22:06)
[2023-02-18] MEDS ORDERED: chlordiazePOXIDE HCL 10 MG CAPSULE PO ONE (05:00)
[2023-02-18] MEDS: methaDONE 40 MG, methaDONE 10 MG PO SCH (05:19)
[2023-02-18] MEDS: ACETAMINOPHEN 325 MG TABLET (FP) PO PRN (05:21)
[2023-02-18 07:07] VITALS: RESP 18
[2023-02-18 09:03] VITALS: BP 121/74; PULSE 81; TEMP 97
[2023-02-18] MEDS: amLODIPine BESYLATE 2.5 MG TABLET (FP) PO SCH (09:16)
[2023-02-18] MEDS: PANTOPRAZOLE 40 MG TABLET PO SCH (09:16)
[2023-02-18] MEDS: ESCITALOPRAM OXALATE 20 MG TABLET PO SCH (09:16)
[2023-02-18] MEDS: NICOTINE 14 MG/24 HOURS TOPICAL PATCH TD SCH (09:16)
[2023-02-18] MEDS: DOCUSATE SODIUM 100 MG CAPSULE (FP) PO SCH (09:16)
[2023-02-18] MEDS: PRENATAL VITAMINS W/ FOLIC ACID TABLET (FP) PO SCH (09:16)
== END 2023-02-18 09:43 | disposition home or self-care (01) | DRG 773 ==
LOC: YASAS 11:42 → Y3N 15:10
PROVIDERS: ADMIT Allergy & Immunology; ATTEND Surgery
PROC: HZ2ZZZZ Detoxification Services for Substance Abuse Treatment (ICD-10-PCS; principal; 2023-02-13)
DX: F10.230 Alcohol dependence with withdrawal, uncomplicated (principal); F11.20 Opioid dependence, uncomplicated; F14.20 Cocaine dependence, uncomplicated; F17.210 Nicotine dependence, cigarettes, uncomplicated; F19.282 Other psychoactive substance dependence with psychoactive substance-induced sleep disorder; F19.24 Other psychoactive substance dependence with psychoactive substance-induced mood disorder; F41.9 Anxiety disorder, unspecified; F32.9 Major depressive disorder, single episode, unspecified; Z21 Asymptomatic human immunodeficiency virus [HIV] infection status; I10 Essential (primary) hypertension; J45.30 Mild persistent asthma, uncomplicated; K21.9 Gastro-esophageal reflux disease without esophagitis; M19.041 Primary osteoarthritis, right hand; M19.042 Primary osteoarthritis, left hand
CPT/HCPCS: 36415; 80053; 80307; 85027; 86780; 87635; 87811

== ENCOUNTER 2023-04-02 11:01 | Inpatient (IN) | payer OTHER ==
[2023-04-02 11:40] VITALS: BMI 22.3
[2023-04-02] MEDS ORDERED: guaiFENesin 600 MG TABLET.ER (FP) PO PRN (12:46)
[2023-04-02] MEDS ORDERED: BENZONATATE 200 MG CAPSULE PO PRN (12:46)
[2023-04-02] MEDS ORDERED: NALOXONE HCL (KLOXXADO) 8 MG SPRAY NS PRN (12:46)
[2023-04-02] MEDS ORDERED: BENZOCAINE/MENTHOL (CHLORASEPTIC ) LOZENGE MM PRN (12:46)
[2023-04-02] MEDS ORDERED: POLYETHYLENE GLYCOL (HEALTHYLAX) 3350 17 GM PACKET PO PRN (12:46)
[2023-04-02] MEDS ORDERED: NALOXONE HCL 0.4 MG/ML VIAL IM PRN (12:46)
[2023-04-02] MEDS ORDERED: NICOTINE POLACRILEX 2 MG GUM BUC PRN (12:46)
[2023-04-02] MEDS ORDERED: LOPERAMIDE HCL 2 MG CAPSULE PO PRN (12:46)
[2023-04-02] MEDS ORDERED: DICYCLOMINE HCL 10 MG CAPSULE ONE (13:16)
[2023-04-02] MEDS ORDERED: chlordiazePOXIDE HCL 25 MG CAPSULE ONE (13:16)
[2023-04-02] MEDS: DICYCLOMINE HCL 10 MG CAPSULE PO PRN (13:18)
[2023-04-02] MEDS: chlordiazePOXIDE HCL 25 MG CAPSULE PO PRN (13:19)
[2023-04-02] MEDS: ONDANSETRON *ODT* 4 MG TABLET SL PRN (13:35)
[2023-04-02] MEDS: chlordiazePOXIDE HCL 25 MG CAPSULE PO SCH (17:10)
[2023-04-02] MEDS: ACETAMINOPHEN 325 MG TABLET (FP) PO PRN (17:13)
[2023-04-02] MEDS: THIAMINE HCL 100 MG TABLET (FP) PO SCH (22:17)
[2023-04-02] MEDS: ARTIFICIAL TEARS OPHTHALMIC DROPS OD SCH (22:18)
[2023-04-02] MEDS: traZODone HCL 50 MG TABLET (FP) PO SCH (22:18)
[2023-04-02] MEDS: MELATONIN 5 MG TABLETS PO SCH (22:18)
[2023-04-03] MEDS ORDERED: ESCITALOPRAM OXALATE 20 MG TABLET PO SCH (10:00)
[2023-04-03] MEDS: ESCITALOPRAM OXALATE 10 MG TABLET PO SCH (10:07)
[2023-04-03] MEDS: PRENATAL VITAMINS W/ FOLIC ACID TABLET (FP) PO SCH (10:07)
[2023-04-03] MEDS: NICOTINE 14 MG/24 HOURS TOPICAL PATCH TD SCH (10:09)
[2023-04-03] MEDS: METHOCARBAMOL 500 MG TABLET PO PRN (10:14)
[2023-04-03] MEDS: MAGNESIUM HYDROX 2400MG/30ML ORAL SUSPENSION 30 ML CUP PO PRN (10:14)
[2023-04-03 10:37] LABS: HEMATOCRIT 33.9 % (32.4-45.2); HEMOGLOBIN 11.4 GM/dL (10.7-15.3); MCH 28.8 pg (25.7-33.7); MCHC 33.5 g/dl (32.0-36.0); MEAN CELL VOLUME 86.1 fl (80-96); MEAN PLT VOLUME 8.1 fl (7.5-11.1); PLATELET COUNT 218 10^3/uL (134-434); RBC 3.94 M/mm3 (3.60-5.2); RDW 17.1 % (11.6-15.6); WHITE BLOOD COUNT 6.2 K/mm3 (4.0-10.0)
[2023-04-03 11:07] LABS: POTASSIUM 3.9 mmol/L (3.5-5.1)
[2023-04-03 11:13] LABS: ALBUMIN 3.6 g/dl (3.4-5.0); BLOOD UREA NITROGEN 20.6 mg/dL (7-18); CALCIUM 9.2 mg/dL (8.5-10.1)
[2023-04-03 11:15] LABS: BILIRUBIN,TOTAL 0.6 mg/dL (0.2-1); TOT PROT 6.9 g/dl (6.4-8.2)
[2023-04-03] MEDS ORDERED: methaDONE HCL 10 MG TABLET PO ONE (11:41)
[2023-04-03] MEDS: PANTOPRAZOLE 20 MG TABLET PO SCH (11:54)
[2023-04-03] MEDS: methaDONE 40 MG, methaDONE 30 MG PO ONE (12:00)
[2023-04-03] MEDS: hydrOXYzine PAMOATE 25 MG CAPSULE (FP) PO PRN (17:47)
[2023-04-03] MEDS: ALBUTEROL SO4 HFA INHALER IH PRN (19:42)
[2023-04-03] MEDS: MAG HYDROX/AL HYDROX/SIMETH 30 ML UNIT-DOSE CUP PO PRN (23:17)
[2023-04-04] MEDS: methaDONE 40 MG, methaDONE 30 MG PO SCH (05:50)
[2023-04-04] MEDS: chlordiazePOXIDE HCL 25 MG CAPSULE PO SCH (05:50)
[2023-04-04] MEDS ORDERED: methaDONE HCL 10 MG TABLET PO SCH (06:00)
[2023-04-04] MEDS: amLODIPine BESYLATE 2.5 MG TABLET (FP) PO SCH (10:11)
[2023-04-04] MEDS: DOCUSATE SODIUM 100 MG CAPSULE (FP) PO SCH (10:11)
[2023-04-05] MEDS ORDERED: chlordiazePOXIDE HCL 10 MG CAPSULE PO PRN
[2023-04-05] MEDS: chlordiazePOXIDE HCL 10 MG CAPSULE PO SCH (05:42)
[2023-04-05] MEDS: IBUPROFEN 600 MG TABLET (FP) PO PRN (10:13)
[2023-04-05] MEDS: BISMUTH SUBSALICYLATE 524 MG/30 ML PO PRN (17:29)
[2023-04-05] MEDS: traZODone HCL 50 MG TABLET (FP) PO SCH (21:57)
[2023-04-06] MEDS: chlordiazePOXIDE HCL 10 MG CAPSULE PO SCH (05:47)
[2023-04-06] MEDS: LACTULOSE 20 GM/30 ML UDC (FOR ORAL USE ONLY) PO SCH (22:06)
[2023-04-07] MEDS: chlordiazePOXIDE HCL 10 MG CAPSULE PO ONE (05:46)
[2023-04-07] MEDS: IBUPROFEN 400 MG TABLET (FP) PO PRN (05:52)
[2023-04-07 09:40] VITALS: TEMP 97.5
[2023-04-07 13:18] VITALS: BP 99/64; PULSE 75; RESP 16
== END 2023-04-07 14:39 | disposition other institution (70) | DRG 773 ==
LOC: YASAS 11:01 → Y6N 13:07
PROVIDERS: ADMIT Allergy & Immunology; ATTEND Surgery
PROC: HZ2ZZZZ Detoxification Services for Substance Abuse Treatment (ICD-10-PCS; principal; 2023-04-02)
DX: F10.230 Alcohol dependence with withdrawal, uncomplicated (principal); F11.20 Opioid dependence, uncomplicated; F17.210 Nicotine dependence, cigarettes, uncomplicated; Z21 Asymptomatic human immunodeficiency virus [HIV] infection status; I10 Essential (primary) hypertension; K21.9 Gastro-esophageal reflux disease without esophagitis; R79.89 Other specified abnormal findings of blood chemistry
CPT/HCPCS: 36415; 80053; 80305; 80307; 82140; 85027; 86780; 87635; 87811; Q0162

== ENCOUNTER 2023-04-07 14:48 | Inpatient (IN) | payer OTHER ==
[2023-04-07 14:57] VITALS: RESP 18
[2023-04-07] MEDS ORDERED: POLYETHYLENE GLYCOL (HEALTHYLAX) 3350 17 GM PACKET PO PRN (18:16)
[2023-04-07] MEDS ORDERED: IBUPROFEN 600 MG TABLET (FP) PO PRN (18:16)
[2023-04-07] MEDS ORDERED: guaiFENesin 600 MG TABLET.ER (FP) PO PRN (18:16)
[2023-04-07] MEDS ORDERED: ACETAMINOPHEN 325 MG TABLET (FP) PO PRN (18:16)
[2023-04-07] MEDS ORDERED: LOPERAMIDE HCL 2 MG CAPSULE PO PRN (18:16)
[2023-04-07] MEDS ORDERED: METHOCARBAMOL 500 MG TABLET PO PRN (18:16)
[2023-04-07] MEDS ORDERED: BENZONATATE 200 MG CAPSULE PO PRN (18:16)
[2023-04-07] MEDS ORDERED: BENZOCAINE/MENTHOL (CHLORASEPTIC ) LOZENGE MM PRN (18:16)
[2023-04-07] MEDS ORDERED: NALOXONE HCL (KLOXXADO) 8 MG SPRAY NS PRN (18:16)
[2023-04-07] MEDS ORDERED: NALOXONE HCL 0.4 MG/ML VIAL IVPUSH PRN (18:16)
[2023-04-07] MEDS ORDERED: MAGNESIUM HYDROX 2400MG/30ML ORAL SUSPENSION 30 ML CUP PO PRN (18:16)
[2023-04-07] MEDS ORDERED: IBUPROFEN 400 MG TABLET (FP) PO PRN (18:16)
[2023-04-07] MEDS ORDERED: NICOTINE POLACRILEX 2 MG GUM BUC PRN (18:16)
[2023-04-07] MEDS ORDERED: hydrOXYzine PAMOATE 25 MG CAPSULE (FP) PO PRN (18:16)
[2023-04-07] MEDS: THIAMINE HCL 100 MG TABLET (FP) PO SCH (21:14)
[2023-04-07] MEDS: MELATONIN 5 MG TABLETS PO SCH (21:14)
[2023-04-07] MEDS: traZODone HCL 50 MG TABLET (FP) PO SCH (21:15)
[2023-04-07] MEDS: MAG HYDROX/AL HYDROX/SIMETH 30 ML UNIT-DOSE CUP PO PRN (21:49)
[2023-04-08] MEDS ORDERED: methaDONE HCL 40 MG DISPERSABLE TABLET PO SCH (06:00)
[2023-04-08] MEDS: methaDONE 40 MG, methaDONE 30 MG PO SCH (06:12)
[2023-04-08] MEDS: PANTOPRAZOLE 20 MG TABLET PO SCH (09:39)
[2023-04-08] MEDS: PRENATAL VITAMINS W/ FOLIC ACID TABLET (FP) PO SCH (09:39)
[2023-04-08] MEDS: ESCITALOPRAM OXALATE 10 MG TABLET PO SCH (09:39)
[2023-04-08] MEDS: DOCUSATE SODIUM 100 MG CAPSULE (FP) PO SCH (09:39)
[2023-04-08] MEDS: ARTIFICIAL TEARS OPHTHALMIC DROPS OD SCH (10:58)
[2023-04-08] MEDS: amLODIPine BESYLATE 2.5 MG TABLET (FP) PO SCH (10:58)
[2023-04-09] MEDS: NICOTINE 14 MG/24 HOURS TOPICAL PATCH TD SCH (13:25)
[2023-04-10] MEDS: ALBUTEROL SO4 HFA INHALER IH PRN (20:25)
[2023-04-11 07:40] VITALS: TEMP 97.2
[2023-04-11 09:45] VITALS: BP 119/80; PULSE 78
== END 2023-04-11 10:00 | disposition home or self-care (01) | DRG 772 ==
LOC: YASAS 14:48 → Y5N 14:49
PROVIDERS: ADMIT Allergy & Immunology; ATTEND Psychiatry & Neurology Pain Medicine
PROC: HZ42ZZZ Group Counseling for Substance Abuse Treatment, Cognitive-Behavioral (ICD-10-PCS; principal; 2023-04-07)
DX: F10.20 Alcohol dependence, uncomplicated (principal); F11.20 Opioid dependence, uncomplicated; F17.210 Nicotine dependence, cigarettes, uncomplicated; F41.9 Anxiety disorder, unspecified; F32.A Depression, unspecified; Z21 Asymptomatic human immunodeficiency virus [HIV] infection status; I10 Essential (primary) hypertension; K21.9 Gastro-esophageal reflux disease without esophagitis; J45.909 Unspecified asthma, uncomplicated
CPT/HCPCS: 36415; 82140; 86803; 87522

== ENCOUNTER 2023-04-28 09:27 | Inpatient (IN) | payer OTHER ==
[2023-04-28 10:38] VITALS: BMI 21.9
[2023-04-28] MEDS ORDERED: DICYCLOMINE HCL 10 MG CAPSULE PO PRN (10:50)
[2023-04-28] MEDS ORDERED: ONDANSETRON *ODT* 4 MG TABLET SL PRN (10:50)
[2023-04-28] MEDS ORDERED: guaiFENesin 600 MG TABLET.ER (FP) PO PRN (10:50)
[2023-04-28] MEDS ORDERED: IBUPROFEN 600 MG TABLET (FP) PO PRN (10:50)
[2023-04-28] MEDS ORDERED: BENZONATATE 200 MG CAPSULE PO PRN (10:50)
[2023-04-28] MEDS ORDERED: P-EPHED 60MG/TRIPROLIDI 2.5MG TABLET PO PRN (10:50)
[2023-04-28] MEDS ORDERED: NICOTINE POLACRILEX 2 MG LOZENGE BC PRN (10:50)
[2023-04-28] MEDS ORDERED: NALOXONE HCL 0.4 MG/ML VIAL IM PRN (10:50)
[2023-04-28] MEDS ORDERED: NALOXONE HCL (KLOXXADO) 8 MG SPRAY NS PRN (10:50)
[2023-04-28] MEDS ORDERED: LOPERAMIDE HCL 2 MG CAPSULE PO PRN (10:50)
[2023-04-28] MEDS ORDERED: BENZOCAINE/MENTHOL (CHLORASEPTIC ) LOZENGE MM PRN (10:50)
[2023-04-28] MEDS ORDERED: IBUPROFEN 400 MG TABLET (FP) PO PRN (10:50)
[2023-04-28] MEDS: PANTOPRAZOLE 20 MG TABLET PO SCH (12:32)
[2023-04-28] MEDS ORDERED: chlordiazePOXIDE HCL 25 MG CAPSULE PO PRN (13:55)
[2023-04-28] MEDS: chlordiazePOXIDE HCL 25 MG CAPSULE PO ONE (14:51)
[2023-04-28] MEDS: chlordiazePOXIDE HCL 25 MG CAPSULE PO SCH (17:30)
[2023-04-28] MEDS: ALBUTEROL SO4 HFA INHALER IH PRN (17:32)
[2023-04-28] MEDS: amLODIPine BESYLATE 5 MG TABLET (FP) PO ONE (20:59)
[2023-04-28] MEDS: THIAMINE HCL 100 MG TABLET (FP) PO SCH (22:26)
[2023-04-28] MEDS: MELATONIN 5 MG TABLETS PO SCH (22:26)
[2023-04-28] MEDS: METHOCARBAMOL 500 MG TABLET PO PRN (22:27)
[2023-04-29] MEDS: chlordiazePOXIDE HCL 25 MG CAPSULE PO SCH (05:39)
[2023-04-29] MEDS ORDERED: methaDONE HCL 10 MG TABLET PO SCH (07:45)
[2023-04-29] MEDS: methaDONE 40 MG, methaDONE 30 MG PO ONE (08:52)
[2023-04-29] MEDS: DOCUSATE SODIUM 100 MG CAPSULE (FP) PO SCH (10:12)
[2023-04-29] MEDS: amLODIPine BESYLATE 2.5 MG TABLET (FP) PO SCH (10:12)
[2023-04-29] MEDS: PRENATAL VITAMINS W/ FOLIC ACID TABLET (FP) PO SCH (10:13)
[2023-04-29] MEDS: MAGNESIUM HYDROX 2400MG/30ML ORAL SUSPENSION 30 ML CUP PO PRN (17:39)
[2023-04-29] MEDS: NICOTINE POLACRILEX 2 MG GUM BUC PRN (17:43)
[2023-04-29] MEDS: OFLOXACIN 0.3% OPHTHALMIC SOLUTION 5 ML BOTTLE OD SCH (22:03)
[2023-04-29] MEDS: ARTIFICIAL TEARS OPHTHALMIC DROPS OD PRN (22:04)
[2023-04-29] MEDS: cloNIDine HCL 0.1 MG TABLET PO ONE (22:11)
[2023-04-30] MEDS ORDERED: chlordiazePOXIDE HCL 10 MG CAPSULE PO PRN
[2023-04-30] MEDS: methaDONE 40 MG, methaDONE 30 MG PO SCH (05:26)
[2023-04-30] MEDS: chlordiazePOXIDE HCL 10 MG CAPSULE PO SCH (05:26)
[2023-04-30] MEDS: POLYETHYLENE GLYCOL (HEALTHYLAX) 3350 17 GM PACKET PO PRN (05:46)
[2023-04-30] MEDS: ACETAMINOPHEN 325 MG TABLET (FP) PO PRN (10:11)
[2023-04-30] MEDS: MAG HYDROX/AL HYDROX/SIMETH 30 ML UNIT-DOSE CUP PO PRN (20:35)
[2023-05-01] MEDS: chlordiazePOXIDE HCL 10 MG CAPSULE PO SCH (05:46)
[2023-05-01] MEDS ORDERED: ESCITALOPRAM OXALATE 10 MG TABLET PO SCH (10:45)
[2023-05-01] MEDS ORDERED: ESCITALOPRAM OXALATE 10 MG TABLET ONE (11:53)
[2023-05-01] MEDS: ESCITALOPRAM OXALATE 20 MG TABLET PO ONE (12:00)
[2023-05-01] MEDS: BISMUTH SUBSALICYLATE 524 MG/30 ML PO PRN (19:06)
[2023-05-01] MEDS: traZODone HCL 50 MG TABLET (FP) PO SCH (22:15)
[2023-05-02] MEDS: chlordiazePOXIDE HCL 10 MG CAPSULE PO ONE (05:28)
[2023-05-02] MEDS: ESCITALOPRAM OXALATE 20 MG TABLET PO SCH (09:03)
[2023-05-02 09:20] VITALS: BP 99/74; PULSE 88; RESP 18; TEMP 97.3
== END 2023-05-02 09:06 | disposition home or self-care (01) | DRG 775 ==
LOC: YASAS 09:27 → Y6N 11:42
PROVIDERS: ADMIT Allergy & Immunology; ATTEND Surgery
PROC: HZ2ZZZZ Detoxification Services for Substance Abuse Treatment (ICD-10-PCS; principal; 2023-04-28)
DX: F10.230 Alcohol dependence with withdrawal, uncomplicated (principal); F12.20 Cannabis dependence, uncomplicated; F17.210 Nicotine dependence, cigarettes, uncomplicated; F19.282 Other psychoactive substance dependence with psychoactive substance-induced sleep disorder; F32.9 Major depressive disorder, single episode, unspecified; Z21 Asymptomatic human immunodeficiency virus [HIV] infection status; I10 Essential (primary) hypertension; J45.20 Mild intermittent asthma, uncomplicated; K21.9 Gastro-esophageal reflux disease without esophagitis; K59.03 Drug induced constipation; H91.91 Unspecified hearing loss, right ear
CPT/HCPCS: 80305; 87635; 87811

== ENCOUNTER 2023-08-08 12:40 | Inpatient (IN) | payer OTHER ==
[2023-08-08 13:11] VITALS: BMI 21.5
[2023-08-08] MEDS ORDERED: BENZONATATE 200 MG CAPSULE PO PRN (16:05)
[2023-08-08] MEDS ORDERED: BENZOCAINE/MENTHOL (CHLORASEPTIC ) LOZENGE MM PRN (16:05)
[2023-08-08] MEDS ORDERED: NALOXONE (NARCAN) HCL 4 MG/0.1 ML SPRAY NS PRN (16:05)
[2023-08-08] MEDS ORDERED: METHOCARBAMOL 500 MG TABLET PO PRN (16:05)
[2023-08-08] MEDS ORDERED: guaiFENesin 600 MG TABLET.ER (FP) PO PRN (16:05)
[2023-08-08] MEDS ORDERED: DICYCLOMINE HCL 10 MG CAPSULE PO PRN (16:05)
[2023-08-08] MEDS ORDERED: hydrOXYzine PAMOATE 25 MG CAPSULE (FP) PO PRN (16:05)
[2023-08-08] MEDS ORDERED: NALOXONE HCL 0.4 MG/ML VIAL IM PRN (16:05)
[2023-08-08] MEDS ORDERED: ACETAMINOPHEN 325 MG TABLET (FP) PO PRN (16:05)
[2023-08-08] MEDS ORDERED: LOPERAMIDE HCL 2 MG CAPSULE PO PRN (16:05)
[2023-08-08] MEDS ORDERED: ONDANSETRON *ODT* 4 MG TABLET SL PRN (16:05)
[2023-08-08] MEDS ORDERED: NICOTINE POLACRILEX 2 MG GUM BUC PRN (16:05)
[2023-08-08] MEDS ORDERED: IBUPROFEN 400 MG TABLET (FP) PO PRN (16:05)
[2023-08-08] MEDS ORDERED: chlordiazePOXIDE HCL 25 MG CAPSULE PO PRN (16:08)
[2023-08-08] MEDS ORDERED: chlordiazePOXIDE HCL 25 MG CAPSULE ONE (17:13)
[2023-08-08] MEDS: chlordiazePOXIDE HCL 25 MG CAPSULE PO SCH (17:16)
[2023-08-08] MEDS: ALBUTEROL SO4 HFA INHALER IH PRN (19:58)
[2023-08-08] MEDS: IBUPROFEN 600 MG TABLET (FP) PO PRN (20:18)
[2023-08-08] MEDS: MELATONIN 5 MG TABLETS PO SCH (22:32)
[2023-08-08] MEDS: THIAMINE 100 MG TABLET PO SCH (22:32)
[2023-08-09] MEDS: PRENATAL VITAMINS W/ FOLIC ACID TABLET (FP) PO SCH (10:22)
[2023-08-09] MEDS: FAMOTIDINE 20 MG TABLET PO SCH (10:22)
[2023-08-09] MEDS: FOLIC ACID 1 MG TABLET (FP) PO SCH (10:22)
[2023-08-09] MEDS: ASPIRIN COATED 81 MG TABLET.EC PO SCH (10:22)
[2023-08-09] MEDS: DOCUSATE SODIUM 100 MG CAPSULE (FP) PO SCH (10:22)
[2023-08-09] MEDS: methaDONE 40 MG, methaDONE 30 MG PO SCH (10:24)
[2023-08-09] MEDS: NICOTINE 14 MG/24 HOURS TOPICAL PATCH TD SCH (10:25)
[2023-08-09 12:52] LABS: CHLORIDE 99 mmol/L (98-107); POTASSIUM 5.2 mmol/L (3.5-5.1); SODIUM 136 mmol/L (136-145)
[2023-08-09 12:54] LABS: HEMATOCRIT 36.9 % (32.4-45.2); HEMOGLOBIN 12.2 GM/dL (10.7-15.3); MCH 28.6 pg (25.7-33.7); MCHC 33.2 g/dl (32.0-36.0); MEAN CELL VOLUME 86.2 fl (80-96); MEAN PLT VOLUME 7.9 fl (7.5-11.1); PLATELET COUNT 248 10^3/uL (134-434); RBC 4.28 M/mm3 (3.60-5.2); RDW 16.9 % (11.6-15.6); WHITE BLOOD COUNT 4.6 K/mm3 (4.0-10.0)
[2023-08-09 12:55] LABS: ALBUMIN 3.9 g/dl (3.4-5.0); CALCIUM 9.8 mg/dL (8.5-10.1)
[2023-08-09 12:56] LABS: ANION GAP 2 mmol/L (4-13); BLOOD UREA NITROGEN 16.9 mg/dL (7-18); CO2 35 mmol/L (21-32); GLUCOSE,RANDOM 84 mg/dL (74-106)
[2023-08-09 12:58] LABS: SGPT/ALT 28 U/L (13-61)
[2023-08-09 12:59] LABS: CREATININE 0.9 mg/dL (0.55-1.3); SGOT/AST 28 U/L (15-37)
[2023-08-09 13:00] LABS: BILIRUBIN,TOTAL 0.5 mg/dL (0.2-1); TOT PROT 7.7 g/dl (6.4-8.2)
[2023-08-09 13:01] LABS: ALK PHOS 122 U/L (45-117)
[2023-08-09] MEDS: MAG HYDROX/AL HYDROX/SIMETH 30 ML UNIT-DOSE CUP PO PRN (13:31)
[2023-08-09] MEDS ORDERED: ESCITALOPRAM OXALATE 10 MG TABLET ONE (14:10)
[2023-08-09] MEDS: ESCITALOPRAM OXALATE 20 MG TABLET PO SCH (14:15)
[2023-08-09] MEDS: traZODone HCL 50 MG TABLET (FP) PO SCH (22:41)
[2023-08-10] MEDS: chlordiazePOXIDE HCL 25 MG CAPSULE PO SCH (05:44)
[2023-08-10] MEDS: POLYETHYLENE GLYCOL (HEALTHYLAX) 3350 17 GM PACKET PO PRN (05:46)
[2023-08-10] MEDS ORDERED: ESCITALOPRAM OXALATE 10 MG TABLET ONE (09:49)
[2023-08-10] MEDS: ARTIFICIAL TEARS OPHTHALMIC DROPS OU PRN (10:01)
[2023-08-11] MEDS ORDERED: chlordiazePOXIDE HCL 10 MG CAPSULE PO PRN
[2023-08-11] MEDS: chlordiazePOXIDE HCL 10 MG CAPSULE PO SCH (05:45)
[2023-08-11] MEDS ORDERED: ESCITALOPRAM OXALATE 10 MG TABLET ONE (09:46)
[2023-08-11] MEDS: amLODIPine BESYLATE 2.5 MG TABLET (FP) PO SCH (10:57)
[2023-08-11] MEDS: BISMUTH SUBSALICYLATE 524 MG/30 ML PO PRN (20:27)
[2023-08-12] MEDS: chlordiazePOXIDE HCL 10 MG CAPSULE PO SCH (05:44)
[2023-08-12] MEDS ORDERED: ESCITALOPRAM OXALATE 10 MG TABLET ONE (09:13)
[2023-08-12] MEDS: MAGNESIUM HYDROX 2400MG/30ML ORAL SUSPENSION 30 ML CUP PO PRN (22:45)
[2023-08-13] MEDS: chlordiazePOXIDE HCL 10 MG CAPSULE PO ONE (05:38)
[2023-08-13] MEDS ORDERED: ESCITALOPRAM OXALATE 10 MG TABLET ONE (09:03)
[2023-08-13 09:43] VITALS: BP 129/81; PULSE 74; RESP 16; TEMP 97.6
== END 2023-08-13 10:19 | disposition home or self-care (01) | DRG 775 ==
LOC: YASAS 12:40 → Y6N 18:56
PROVIDERS: ADMIT Allergy & Immunology; ATTEND Surgery
PROC: HZ2ZZZZ Detoxification Services for Substance Abuse Treatment (ICD-10-PCS; principal; 2023-08-08)
DX: F10.230 Alcohol dependence with withdrawal, uncomplicated (principal); F12.20 Cannabis dependence, uncomplicated; F17.210 Nicotine dependence, cigarettes, uncomplicated; F19.282 Other psychoactive substance dependence with psychoactive substance-induced sleep disorder; F32.9 Major depressive disorder, single episode, unspecified; Z21 Asymptomatic human immunodeficiency virus [HIV] infection status; E87.5 Hyperkalemia; I10 Essential (primary) hypertension; K59.03 Drug induced constipation; K21.9 Gastro-esophageal reflux disease without esophagitis; H91.92 Unspecified hearing loss, left ear; M19.041 Primary osteoarthritis, right hand; R63.6 Underweight; Z68.21 Body mass index [BMI] 21.0-21.9, adult; Z99.89 Dependence on other enabling machines and devices
CPT/HCPCS: 36415; 80053; 80305; 80307; 85027; 86780; 93005; 93010

== ENCOUNTER 2023-09-01 09:38 | Inpatient (IN) | payer OTHER ==
[2023-09-01 10:07] VITALS: BMI 21.9
[2023-09-01] MEDS ORDERED: NICOTINE POLACRILEX 2 MG LOZENGE BC PRN (10:21)
[2023-09-01] MEDS ORDERED: LOPERAMIDE HCL 2 MG CAPSULE PO PRN (10:21)
[2023-09-01] MEDS ORDERED: NALOXONE (NARCAN) HCL 4 MG/0.1 ML SPRAY NS PRN (10:21)
[2023-09-01] MEDS ORDERED: ONDANSETRON *ODT* 4 MG TABLET SL PRN (10:21)
[2023-09-01] MEDS ORDERED: guaiFENesin 600 MG TABLET.ER (FP) PO PRN (10:21)
[2023-09-01] MEDS ORDERED: NALOXONE HCL 0.4 MG/ML VIAL IM PRN (10:21)
[2023-09-01] MEDS ORDERED: DICYCLOMINE HCL 10 MG CAPSULE PO PRN (10:21)
[2023-09-01] MEDS ORDERED: BENZONATATE 200 MG CAPSULE PO PRN (10:21)
[2023-09-01] MEDS ORDERED: BENZOCAINE/MENTHOL (CHLORASEPTIC ) LOZENGE MM PRN (10:21)
[2023-09-01] MEDS ORDERED: BISMUTH SUBSALICYLATE 524 MG/30 ML PO PRN (10:21)
[2023-09-01] MEDS ORDERED: P-EPHED 60MG/TRIPROLIDI 2.5MG TABLET PO PRN (10:21)
[2023-09-01] MEDS ORDERED: ALBUTEROL SO4 HFA INHALER IH PRN (10:37)
[2023-09-01] MEDS ORDERED: ASPIRIN 81 MG CHEWABLE TABLETS ONE (11:12)
[2023-09-01] MEDS: ASPIRIN 81 MG CHEWABLE TABLETS PO SCH (11:16)
[2023-09-01] MEDS: hydrOXYzine PAMOATE 25 MG CAPSULE (FP) PO ONE (11:25)
[2023-09-01] MEDS: PANTOPRAZOLE 40 MG TABLET PO SCH (11:45)
[2023-09-01] MEDS ORDERED: ARTIFICIAL TEARS OPHTHALMIC DROPS OU PRN (12:37)
[2023-09-01] MEDS: amLODIPine BESYLATE 5 MG TABLET (FP) PO ONE (12:40)
[2023-09-01] MEDS: chlordiazePOXIDE HCL 25 MG CAPSULE PO PRN (12:42)
[2023-09-01] MEDS: chlordiazePOXIDE HCL 25 MG CAPSULE PO SCH (17:22)
[2023-09-01] MEDS: MAG HYDROX/AL HYDROX/SIMETH 30 ML UNIT-DOSE CUP PO PRN (17:25)
[2023-09-01] MEDS ORDERED: TIMOLOL 0.5% OPHTHALMIC SOL 5 ML BOTTLE OD SCH (22:00)
[2023-09-01] MEDS: THIAMINE 100 MG TABLET PO SCH (22:33)
[2023-09-01] MEDS: DOCUSATE SODIUM 100 MG CAPSULE (FP) PO SCH (22:33)
[2023-09-01] MEDS: MELATONIN 5 MG TABLETS PO SCH (22:33)
[2023-09-01] MEDS: LATANOPROST 0.005% OPHTH SOLN 2.5ML BOTTLE OU SCH (22:41)
[2023-09-01] MEDS: TIMOLOL 0.5% OPHTHALMIC SOL 5 ML BOTTLE OU SCH (22:41)
[2023-09-02] MEDS: TIMOLOL 0.5% OPHTHALMIC SOL 5 ML BOTTLE OU ONE (02:48)
[2023-09-02] MEDS: chlordiazePOXIDE HCL 25 MG CAPSULE PO SCH (05:41)
[2023-09-02] MEDS: METHOCARBAMOL 500 MG TABLET PO PRN (06:20)
[2023-09-02] MEDS: PRENATAL VITAMINS W/ FOLIC ACID TABLET (FP) PO SCH (10:03)
[2023-09-02] MEDS: methaDONE HCL 10 MG TABLET PO ONE (10:06)
[2023-09-02] MEDS: FAMOTIDINE 20 MG TABLET PO SCH (10:09)
[2023-09-02] MEDS: amLODIPine BESYLATE 2.5 MG TABLET (FP) PO SCH (10:09)
[2023-09-02] MEDS ORDERED: ESCITALOPRAM OXALATE 10 MG TABLET ONE (10:21)
[2023-09-02] MEDS: ESCITALOPRAM OXALATE 20 MG TABLET PO SCH (10:22)
[2023-09-02] MEDS: MAGNESIUM HYDROX 2400MG/30ML ORAL SUSPENSION 30 ML CUP PO PRN (11:17)
[2023-09-02] MEDS: ACETAMINOPHEN 325 MG TABLET (FP) PO PRN (17:27)
[2023-09-02] MEDS: traZODone HCL 50 MG TABLET (FP) PO SCH (22:14)
[2023-09-03] MEDS ORDERED: chlordiazePOXIDE HCL 10 MG CAPSULE PO PRN
[2023-09-03] MEDS: IBUPROFEN 400 MG TABLET (FP) PO PRN (04:04)
[2023-09-03] MEDS: chlordiazePOXIDE HCL 10 MG CAPSULE PO SCH (05:58)
[2023-09-03] MEDS ORDERED: methaDONE HCL 10 MG TABLET PO ONE (09:02)
[2023-09-03] MEDS: methaDONE 40 MG, methaDONE 30 MG PO ONE (09:25)
[2023-09-03] MEDS: NICOTINE POLACRILEX 2 MG GUM BUC PRN (10:13)
[2023-09-03] MEDS: ACAMPROSATE CALCIUM 333 MG TABLET.DR PO SCH (13:26)
[2023-09-03] MEDS: POLYETHYLENE GLYCOL (HEALTHYLAX) 3350 17 GM PACKET PO PRN (17:32)
[2023-09-04] MEDS: chlordiazePOXIDE HCL 10 MG CAPSULE PO SCH (05:21)
[2023-09-04] MEDS ORDERED: methaDONE HCL 10 MG TABLET PO SCH (06:00)
[2023-09-04] MEDS: methaDONE 40 MG, methaDONE 30 MG PO SCH (06:22)
[2023-09-04] MEDS ORDERED: ESCITALOPRAM OXALATE 10 MG TABLET ONE (09:16)
[2023-09-04 17:53] VITALS: RESP 16
[2023-09-05] MEDS: chlordiazePOXIDE HCL 10 MG CAPSULE PO ONE (05:02)
[2023-09-05 06:24] VITALS: BP 127/87; PULSE 62; TEMP 97.5
[2023-09-05] MEDS ORDERED: ESCITALOPRAM OXALATE 10 MG TABLET ONE (09:14)
== END 2023-09-05 10:58 | disposition home or self-care (01) | DRG 773 ==
LOC: YASAS 09:38 → Y6N 10:33
PROVIDERS: ADMIT Allergy & Immunology; ATTEND Surgery
PROC: HZ2ZZZZ Detoxification Services for Substance Abuse Treatment (ICD-10-PCS; principal; 2023-09-01)
DX: F10.230 Alcohol dependence with withdrawal, uncomplicated (principal); F11.20 Opioid dependence, uncomplicated; F17.210 Nicotine dependence, cigarettes, uncomplicated; F19.282 Other psychoactive substance dependence with psychoactive substance-induced sleep disorder; F19.280 Other psychoactive substance dependence with psychoactive substance-induced anxiety disorder; F32.A Depression, unspecified; F41.9 Anxiety disorder, unspecified; Z21 Asymptomatic human immunodeficiency virus [HIV] infection status; I10 Essential (primary) hypertension; J45.20 Mild intermittent asthma, uncomplicated; K21.9 Gastro-esophageal reflux disease without esophagitis; H40.9 Unspecified glaucoma; H91.92 Unspecified hearing loss, left ear; H04.123 Dry eye syndrome of bilateral lacrimal glands; M19.041 Primary osteoarthritis, right hand; M19.042 Primary osteoarthritis, left hand; Z99.89 Dependence on other enabling machines and devices
CPT/HCPCS: 36415; 80305; 84132

== ENCOUNTER 2023-09-24 09:41 | Inpatient (IN) | payer OTHER ==
[2023-09-24 10:23] VITALS: BMI 22.1
[2023-09-24] MEDS ORDERED: chlordiazePOXIDE HCL 25 MG CAPSULE PO PRN (10:32)
[2023-09-24] MEDS ORDERED: NALOXONE (NARCAN) HCL 4 MG/0.1 ML SPRAY NS PRN (10:33)
[2023-09-24] MEDS ORDERED: BENZONATATE 200 MG CAPSULE PO PRN (10:33)
[2023-09-24] MEDS ORDERED: MAGNESIUM HYDROX 2400MG/30ML ORAL SUSPENSION 30 ML CUP PO PRN (10:33)
[2023-09-24] MEDS ORDERED: POLYETHYLENE GLYCOL (HEALTHYLAX) 3350 17 GM PACKET PO PRN (10:33)
[2023-09-24] MEDS ORDERED: BENZOCAINE/MENTHOL (CHLORASEPTIC ) LOZENGE MM PRN (10:33)
[2023-09-24] MEDS ORDERED: NALOXONE HCL 0.4 MG/ML VIAL IM PRN (10:33)
[2023-09-24] MEDS ORDERED: IBUPROFEN 600 MG TABLET (FP) PO PRN (10:33)
[2023-09-24] MEDS ORDERED: DICYCLOMINE HCL 10 MG CAPSULE PO PRN (10:33)
[2023-09-24] MEDS ORDERED: IBUPROFEN 400 MG TABLET (FP) PO PRN (10:33)
[2023-09-24] MEDS ORDERED: NICOTINE POLACRILEX 2 MG LOZENGE BC PRN (10:33)
[2023-09-24] MEDS ORDERED: ACETAMINOPHEN 325 MG TABLET (FP) PO PRN (10:33)
[2023-09-24] MEDS ORDERED: LOPERAMIDE HCL 2 MG CAPSULE PO PRN (10:33)
[2023-09-24] MEDS ORDERED: guaiFENesin 600 MG TABLET.ER (FP) PO PRN (10:33)
[2023-09-24] MEDS: chlordiazePOXIDE HCL 25 MG CAPSULE PO SCH (11:41)
[2023-09-24] MEDS: ONDANSETRON *ODT* 4 MG TABLET SL PRN (11:41)
[2023-09-24] MEDS: METHOCARBAMOL 500 MG TABLET PO PRN (15:52)
[2023-09-24] MEDS: THIAMINE 100 MG TABLET PO SCH (22:17)
[2023-09-24] MEDS: MELATONIN 5 MG TABLETS PO SCH (22:17)
[2023-09-24] MEDS: LATANOPROST 0.005% OPHTH SOLN 2.5ML BOTTLE OU SCH (22:24)
[2023-09-24] MEDS: ALBUTEROL SO4 HFA INHALER IH PRN (22:24)
[2023-09-24] MEDS: TIMOLOL 0.5% OPHTHALMIC SOL 5 ML BOTTLE OU SCH (22:25)
[2023-09-25] MEDS: chlordiazePOXIDE HCL 25 MG CAPSULE PO SCH (05:45)
[2023-09-25 08:50] LABS: HEMOGLOBIN 11.7 GM/dL (10.7-15.3); MCH 28.3 pg (25.7-33.7); MCHC 32.5 g/dl (32.0-36.0); MEAN CELL VOLUME 87.2 fl (80-96); MEAN PLT VOLUME 7.5 fl (7.5-11.1); PLATELET COUNT 250 10^3/uL (134-434); RBC 4.13 M/mm3 (3.60-5.2); RDW 18.3 % (11.6-15.6); WHITE BLOOD COUNT 3.2 K/mm3 (4.0-10.0)
[2023-09-25 09:18] LABS: POTASSIUM 4.5 mmol/L (3.5-5.1)
[2023-09-25 09:20] LABS: BLOOD UREA NITROGEN 19.3 mg/dL (7-18); CALCIUM 9.6 mg/dL (8.5-10.1)
[2023-09-25 09:21] LABS: ALBUMIN 3.5 g/dl (3.4-5.0)
[2023-09-25 09:24] LABS: CREATININE 0.7 mg/dL (0.55-1.3)
[2023-09-25 09:25] LABS: BILIRUBIN,TOTAL 0.3 mg/dL (0.2-1); TOT PROT 7.1 g/dl (6.4-8.2)
[2023-09-25] MEDS ORDERED: methaDONE HCL 10 MG TABLET PO ONE (09:25)
[2023-09-25] MEDS: PRENATAL VITAMINS W/ FOLIC ACID TABLET (FP) PO SCH (10:23)
[2023-09-25] MEDS: FAMOTIDINE 20 MG TABLET PO SCH (10:23)
[2023-09-25] MEDS: amLODIPine BESYLATE 2.5 MG TABLET (FP) PO SCH (10:23)
[2023-09-25] MEDS: methaDONE 40 MG, methaDONE 20 MG PO ONE (10:23)
[2023-09-25] MEDS: ASPIRIN 81 MG CHEWABLE TABLETS PO SCH (10:23)
[2023-09-25] MEDS: NICOTINE POLACRILEX 2 MG GUM BUC PRN (10:47)
[2023-09-26] MEDS: chlordiazePOXIDE HCL 10 MG CAPSULE PO SCH (05:43)
[2023-09-26] MEDS: methaDONE 40 MG, methaDONE 20 MG PO SCH (05:43)
[2023-09-26] MEDS ORDERED: methaDONE HCL 10 MG TABLET PO SCH (06:00)
[2023-09-26] MEDS: ESCITALOPRAM OXALATE 20 MG TABLET PO SCH (10:36)
[2023-09-26] MEDS: MAG HYDROX/AL HYDROX/SIMETH 30 ML UNIT-DOSE CUP PO PRN (11:28)
[2023-09-26] MEDS ORDERED: cloNIDine HCL 0.1 MG TABLET PO PRN (14:09)
[2023-09-26] MEDS: traZODone HCL 50 MG TABLET (FP) PO SCH (22:20)
[2023-09-27] MEDS ORDERED: chlordiazePOXIDE HCL 10 MG CAPSULE PO PRN
[2023-09-27] MEDS: chlordiazePOXIDE HCL 10 MG CAPSULE PO SCH (05:53)
[2023-09-27] MEDS ORDERED: ESCITALOPRAM OXALATE 10 MG TABLET ONE (10:09)
[2023-09-27] MEDS: amLODIPine BESYLATE 5 MG TABLET (FP) PO SCH (10:10)
[2023-09-27] MEDS: BISMUTH SUBSALICYLATE 262 MG/15 ML BTL PO PRN (19:41)
[2023-09-28] MEDS: chlordiazePOXIDE HCL 10 MG CAPSULE PO ONE (05:49)
[2023-09-28] MEDS ORDERED: ESCITALOPRAM OXALATE 10 MG TABLET ONE (09:26)
[2023-09-29 07:09] VITALS: RESP 16
[2023-09-29] MEDS ORDERED: ESCITALOPRAM OXALATE 10 MG TABLET ONE (09:01)
[2023-09-29 10:29] VITALS: BP 110/73; PULSE 69; TEMP 97.1
== END 2023-09-29 11:04 | disposition home or self-care (01) | DRG 773 ==
LOC: YASAS 09:41 → Y6N 11:31
PROVIDERS: ADMIT Allergy & Immunology; ATTEND Surgery
PROC: HZ2ZZZZ Detoxification Services for Substance Abuse Treatment (ICD-10-PCS; principal; 2023-09-24)
DX: F10.230 Alcohol dependence with withdrawal, uncomplicated (principal); F10.220 Alcohol dependence with intoxication, uncomplicated; F11.20 Opioid dependence, uncomplicated; F12.20 Cannabis dependence, uncomplicated; F17.213 Nicotine dependence, cigarettes, with withdrawal; F33.9 Major depressive disorder, recurrent, unspecified; F19.982 Other psychoactive substance use, unspecified with psychoactive substance-induced sleep disorder; I10 Essential (primary) hypertension; J45.20 Mild intermittent asthma, uncomplicated; H40.1132 Primary open-angle glaucoma, bilateral, moderate stage; R63.4 Abnormal weight loss; K59.03 Drug induced constipation; H91.92 Unspecified hearing loss, left ear; K21.9 Gastro-esophageal reflux disease without esophagitis; Z21 Asymptomatic human immunodeficiency virus [HIV] infection status; M19.041 Primary osteoarthritis, right hand; M19.042 Primary osteoarthritis, left hand; Z56.0 Unemployment, unspecified
CPT/HCPCS: 36415; 80053; 80305; 85027; Q0162

== ENCOUNTER 2023-11-04 12:15 | Inpatient (IN) | payer OTHER ==
[2023-11-04 13:09] VITALS: BMI 21.9
[2023-11-04] MEDS ORDERED: BISMUTH SUBSALICYLATE 524 MG/30 ML PO PRN (13:23)
[2023-11-04] MEDS ORDERED: IBUPROFEN 400 MG TABLET (FP) PO PRN (13:23)
[2023-11-04] MEDS ORDERED: BENZOCAINE/MENTHOL (CHLORASEPTIC ) LOZENGE MM PRN (13:23)
[2023-11-04] MEDS ORDERED: BENZONATATE 200 MG CAPSULE PO PRN (13:23)
[2023-11-04] MEDS ORDERED: LOPERAMIDE HCL 2 MG CAPSULE PO PRN (13:23)
[2023-11-04] MEDS ORDERED: ONDANSETRON *ODT* 4 MG TABLET SL PRN (13:23)
[2023-11-04] MEDS ORDERED: P-EPHED 60MG/TRIPROLIDI 2.5MG TABLET PO PRN (13:23)
[2023-11-04] MEDS ORDERED: NICOTINE POLACRILEX 2 MG LOZENGE BC PRN (13:23)
[2023-11-04] MEDS ORDERED: NALOXONE HCL 0.4 MG/ML VIAL IM PRN (13:23)
[2023-11-04] MEDS ORDERED: NALOXONE (NARCAN) HCL 4 MG/0.1 ML SPRAY NS PRN (13:23)
[2023-11-04] MEDS ORDERED: DICYCLOMINE HCL 10 MG CAPSULE PO PRN (13:23)
[2023-11-04] MEDS ORDERED: guaiFENesin 600 MG TABLET.ER (FP) PO PRN (13:23)
[2023-11-04] MEDS ORDERED: chlordiazePOXIDE HCL 25 MG CAPSULE ONE (15:22)
[2023-11-04] MEDS: chlordiazePOXIDE HCL 25 MG CAPSULE PO ONE (15:25)
[2023-11-04] MEDS: chlordiazePOXIDE HCL 25 MG CAPSULE PO PRN (18:11)
[2023-11-04] MEDS: METHOCARBAMOL 500 MG TABLET PO PRN (22:35)
[2023-11-04] MEDS: THIAMINE 100 MG TABLET PO SCH (22:35)
[2023-11-04] MEDS: chlordiazePOXIDE HCL 25 MG CAPSULE PO SCH (22:36)
[2023-11-04] MEDS: MELATONIN 5 MG TABLETS PO SCH (22:36)
[2023-11-04] MEDS: TIMOLOL 0.5% OPHTHALMIC SOL 5 ML BOTTLE OU SCH (22:37)
[2023-11-04] MEDS: LATANOPROST 0.005% OPHTH SOLN 2.5ML BOTTLE OU SCH (22:37)
[2023-11-05] MEDS: methaDONE 40 MG, methaDONE 30 MG PO ONE (08:50)
[2023-11-05] MEDS: methaDONE HCL 10 MG TABLET PO ONE (09:07)
[2023-11-05] MEDS: ASPIRIN 81 MG CHEWABLE TABLETS PO SCH (10:13)
[2023-11-05] MEDS: FAMOTIDINE 20 MG TABLET PO SCH (10:13)
[2023-11-05] MEDS: PRENATAL VITAMINS W/ FOLIC ACID TABLET (FP) PO SCH (10:14)
[2023-11-05] MEDS: MAGNESIUM HYDROX 2400MG/30ML ORAL SUSPENSION 30 ML CUP PO PRN (12:30)
[2023-11-05] MEDS: ESCITALOPRAM OXALATE 10 MG TABLET PO SCH (13:13)
[2023-11-05 17:53] LABS: HEMATOCRIT 35.6 % (32.4-45.2); HEMOGLOBIN 11.6 GM/dL (10.7-15.3); MCH 28.4 pg (25.7-33.7); MCHC 32.6 g/dl (32.0-36.0); MEAN CELL VOLUME 87.1 fl (80-96); MEAN PLT VOLUME 7.8 fl (7.5-11.1); PLATELET COUNT 210 10^3/uL (134-434); RBC 4.09 M/mm3 (3.60-5.2); RDW 17.5 % (11.6-15.6)
[2023-11-05 17:55] LABS: POTASSIUM 4.8 mmol/L (3.5-5.1)
[2023-11-05 18:01] LABS: ALBUMIN 3.4 g/dl (3.4-5.0); BLOOD UREA NITROGEN 19.1 mg/dL (7-18); CALCIUM 9.8 mg/dL (8.5-10.1)
[2023-11-05 18:02] LABS: CREATININE 0.8 mg/dL (0.55-1.3)
[2023-11-05 18:04] LABS: BILIRUBIN,TOTAL 0.4 mg/dL (0.2-1); TOT PROT 6.7 g/dl (6.4-8.2)
[2023-11-05] MEDS: traZODone HCL 50 MG TABLET (FP) PO SCH (22:22)
[2023-11-06] MEDS: chlordiazePOXIDE HCL 25 MG CAPSULE PO SCH (05:53)
[2023-11-06] MEDS: methaDONE 40 MG, methaDONE 30 MG PO SCH (05:54)
[2023-11-06] MEDS ORDERED: methaDONE HCL 10 MG TABLET PO SCH (06:00)
[2023-11-06] MEDS: IBUPROFEN 600 MG TABLET (FP) PO PRN (08:58)
[2023-11-06] MEDS: NICOTINE POLACRILEX 2 MG GUM BUC PRN (10:26)
[2023-11-06] MEDS: ACETAMINOPHEN 325 MG TABLET (FP) PO PRN (17:26)
[2023-11-06] MEDS: MAG HYDROX/AL HYDROX/SIMETH 30 ML UNIT-DOSE CUP PO PRN (17:28)
[2023-11-06] MEDS: ALBUTEROL SO4 HFA INHALER IH PRN (17:28)
[2023-11-07] MEDS ORDERED: chlordiazePOXIDE HCL 10 MG CAPSULE PO PRN
[2023-11-07] MEDS: chlordiazePOXIDE HCL 10 MG CAPSULE PO SCH (06:00)
[2023-11-07] MEDS: POLYETHYLENE GLYCOL (HEALTHYLAX) 3350 17 GM PACKET PO PRN (10:26)
[2023-11-08] MEDS: chlordiazePOXIDE HCL 10 MG CAPSULE PO SCH (05:47)
[2023-11-08 10:05] VITALS: RESP 16; TEMP 97.7
[2023-11-08 13:07] VITALS: BP 116/75; PULSE 66
[2023-11-09] MEDS ORDERED: chlordiazePOXIDE HCL 10 MG CAPSULE PO ONE (05:00)
== END 2023-11-08 13:25 | disposition other institution (70) | DRG 773 ==
LOC: YASAS 12:15 → Y6N 15:18
PROVIDERS: ADMIT Allergy & Immunology; ATTEND Surgery
PROC: HZ2ZZZZ Detoxification Services for Substance Abuse Treatment (ICD-10-PCS; principal; 2023-11-04)
DX: F10.230 Alcohol dependence with withdrawal, uncomplicated (principal); F14.20 Cocaine dependence, uncomplicated; F11.20 Opioid dependence, uncomplicated; F17.210 Nicotine dependence, cigarettes, uncomplicated; F19.282 Other psychoactive substance dependence with psychoactive substance-induced sleep disorder; F19.24 Other psychoactive substance dependence with psychoactive substance-induced mood disorder; F32.9 Major depressive disorder, single episode, unspecified; Z21 Asymptomatic human immunodeficiency virus [HIV] infection status; H40.1132 Primary open-angle glaucoma, bilateral, moderate stage; H91.92 Unspecified hearing loss, left ear; I10 Essential (primary) hypertension; J45.20 Mild intermittent asthma, uncomplicated; M19.041 Primary osteoarthritis, right hand; M19.042 Primary osteoarthritis, left hand
CPT/HCPCS: 36415; 80053; 80305; 85027; 87811

== ENCOUNTER 2023-11-08 13:41 | Inpatient (IN) | payer OTHER ==
[2023-11-08] MEDS ORDERED: MAGNESIUM HYDROX 2400MG/30ML ORAL SUSPENSION 30 ML CUP PO PRN (14:05)
[2023-11-08] MEDS ORDERED: BENZOCAINE/MENTHOL (CHLORASEPTIC ) LOZENGE MM PRN (14:05)
[2023-11-08] MEDS ORDERED: guaiFENesin 600 MG TABLET.ER (FP) PO PRN (14:05)
[2023-11-08] MEDS ORDERED: LOPERAMIDE HCL 2 MG CAPSULE PO PRN (14:05)
[2023-11-08] MEDS ORDERED: BENZONATATE 200 MG CAPSULE PO PRN (14:05)
[2023-11-08] MEDS: IBUPROFEN 400 MG TABLET (FP) PO PRN (20:26)
[2023-11-08] MEDS: traZODone HCL 50 MG TABLET (FP) PO ONE (20:26)
[2023-11-08] MEDS: MELATONIN 5 MG TABLETS PO SCH (21:16)
[2023-11-08] MEDS: THIAMINE 100 MG TABLET PO SCH (21:16)
[2023-11-08] MEDS: LATANOPROST 0.005% OPHTH SOLN 2.5ML BOTTLE OU SCH (22:50)
[2023-11-08] MEDS: TIMOLOL 0.5% OPHTHALMIC SOL 5 ML BOTTLE OU SCH (22:50)
[2023-11-09] MEDS: PRENATAL VITAMINS W/ FOLIC ACID TABLET (FP) PO SCH (05:27)
[2023-11-09] MEDS: NICOTINE 14 MG/24 HOURS TOPICAL PATCH TD SCH (05:28)
[2023-11-09] MEDS: POLYETHYLENE GLYCOL (HEALTHYLAX) 3350 17 GM PACKET PO PRN (07:55)
[2023-11-09] MEDS: methaDONE HCL 10 MG TABLET PO SCH (09:04)
[2023-11-09] MEDS: traZODone HCL 50 MG TABLET (FP) PO SCH (21:35)
[2023-11-10] MEDS: methaDONE 40 MG, methaDONE 30 MG PO SCH (06:23)
[2023-11-10] MEDS: IBUPROFEN 600 MG TABLET (FP) PO PRN (06:34)
[2023-11-10] MEDS: ACETAMINOPHEN 325 MG TABLET (FP) PO PRN (10:22)
[2023-11-10] MEDS: ESCITALOPRAM OXALATE 20 MG TABLET PO SCH (10:22)
[2023-11-10] MEDS: ALBUTEROL SO4 HFA INHALER IH PRN (21:37)
[2023-11-12] MEDS: MAG HYDROX/AL HYDROX/SIMETH 30 ML UNIT-DOSE CUP PO PRN (10:16)
[2023-11-12] MEDS: hydrOXYzine PAMOATE 25 MG CAPSULE (FP) PO PRN (21:55)
[2023-11-13] MEDS: NALTREXONE HCL 50 MG TABLET PO SCH (14:23)
[2023-11-13] MEDS: ACAMPROSATE CALCIUM 333 MG TABLET.DR PO SCH (21:22)
[2023-11-13] MEDS: METHOCARBAMOL 500 MG TABLET PO PRN (21:22)
[2023-11-14] MEDS: NICOTINE POLACRILEX 2 MG GUM BUC PRN (19:24)
[2023-11-19] MEDS ORDERED: ASPIRIN 81 MG CHEWABLE TABLETS PO SCH (13:36)
[2023-11-19] MEDS ORDERED: amLODIPine BESYLATE 2.5 MG TABLET (FP) PO SCH (13:37)
[2023-11-19] MEDS: FAMOTIDINE 20 MG TABLET PO SCH (13:45)
[2023-11-19] MEDS: amLODIPine BESYLATE 2.5 MG TABLET (FP) PO SCH (13:50)
[2023-11-19] MEDS: ASPIRIN 81 MG CHEWABLE TABLETS PO SCH (13:50)
[2023-11-20] MEDS ORDERED: amLODIPine BESYLATE 2.5 MG TABLET (FP) PO SCH (13:17)
[2023-11-20] MEDS ORDERED: ASPIRIN 81 MG CHEWABLE TABLETS PO SCH (13:18)
[2023-11-22 06:59] VITALS: RESP 17; TEMP 98.1
[2023-11-22 08:57] VITALS: BP 135/84; PULSE 75
[2023-11-22] MEDS: NALOXONE (NYS OPIOID OVERDOSE PROGRAM) 4 MG/0.1 ML SPRAY NS PRN (09:43)
== END 2023-11-22 11:07 | disposition home or self-care (01) | DRG 772 ==
LOC: YASAS 13:41 → Y3NR 13:42 → Y5N 11-09 17:51
PROVIDERS: ADMIT Allergy & Immunology; ATTEND Psychiatry & Neurology Pain Medicine
PROC: HZ42ZZZ Group Counseling for Substance Abuse Treatment, Cognitive-Behavioral (ICD-10-PCS; principal; 2023-11-08)
DX: F10.20 Alcohol dependence, uncomplicated (principal); F11.20 Opioid dependence, uncomplicated; F17.210 Nicotine dependence, cigarettes, uncomplicated; F19.282 Other psychoactive substance dependence with psychoactive substance-induced sleep disorder; F19.24 Other psychoactive substance dependence with psychoactive substance-induced mood disorder; F32.9 Major depressive disorder, single episode, unspecified; F41.9 Anxiety disorder, unspecified; Z21 Asymptomatic human immunodeficiency virus [HIV] infection status; H40.9 Unspecified glaucoma; H91.92 Unspecified hearing loss, left ear; I10 Essential (primary) hypertension; J45.20 Mild intermittent asthma, uncomplicated; K21.9 Gastro-esophageal reflux disease without esophagitis; M19.041 Primary osteoarthritis, right hand; M19.042 Primary osteoarthritis, left hand
CPT/HCPCS: 87811

== ENCOUNTER 2024-09-22 14:55 | Inpatient (IN) | payer OTHER ==
[2024-09-22 15:03] VITALS: BMI 23.8
[2024-09-22] MEDS ORDERED: P-EPHED 60MG/TRIPROLIDI 2.5MG TABLET PO PRN (15:08)
[2024-09-22] MEDS ORDERED: LOPERAMIDE HCL 2 MG CAPSULE PO PRN (15:08)
[2024-09-22] MEDS ORDERED: IBUPROFEN 400 MG TABLET (FP) PO PRN (15:08)
[2024-09-22] MEDS ORDERED: POLYETHYLENE GLYCOL (HEALTHYLAX) 3350 17 GM PACKET PO PRN (15:08)
[2024-09-22] MEDS ORDERED: guaiFENesin 600 MG TABLET.ER (FP) PO PRN (15:08)
[2024-09-22] MEDS ORDERED: NALOXONE (NARCAN) HCL 4 MG/0.1 ML SPRAY NS PRN (15:08)
[2024-09-22] MEDS ORDERED: BENZOCAINE/MENTHOL (CHLORASEPTIC ) LOZENGE MM PRN (15:08)
[2024-09-22] MEDS ORDERED: ONDANSETRON *ODT* 4 MG TABLET SL PRN (15:08)
[2024-09-22] MEDS ORDERED: BISMUTH SUBSALICYLATE 524 MG/30 ML PO PRN (15:08)
[2024-09-22] MEDS ORDERED: BENZONATATE 200 MG CAPSULE PO PRN (15:08)
[2024-09-22] MEDS ORDERED: IBUPROFEN 600 MG TABLET (FP) PO ONE (16:41)
[2024-09-22] MEDS: IBUPROFEN 600 MG TABLET (FP) PO PRN (16:42)
[2024-09-22] MEDS ORDERED: PANTOPRAZOLE 20 MG TABLET PO PRN (18:19)
[2024-09-22] MEDS: FLUTICASONE PROP 0.05% 16 GM NASAL SPRAY NS PRN (22:15)
[2024-09-22] MEDS: CARVEDILOL 3.125 MG TABLET (FP) PO SCH (22:16)
[2024-09-22] MEDS: MELATONIN 5 MG TABLETS PO SCH (22:17)
[2024-09-22] MEDS: ATORVASTATIN CA 40 MG TABLET (FP) PO SCH (22:17)
[2024-09-22] MEDS: THIAMINE 100 MG TABLET PO SCH (22:17)
[2024-09-22] MEDS: LATANOPROST 0.005% OPHTH SOLN 2.5ML BOTTLE OU SCH (22:19)
[2024-09-22] MEDS: TIMOLOL 0.5% OPHTHALMIC SOL 5 ML BOTTLE OU SCH (22:19)
[2024-09-23] MEDS: ALBUTEROL SO4 HFA INHALER IH PRN (00:43)
[2024-09-23] MEDS: ACETAMINOPHEN 325 MG TABLET (FP) PO PRN (05:51)
[2024-09-23] MEDS: EMPAGLIFLOZIN (JARDIANCE) 10 MG TABLET PO SCH (07:00)
[2024-09-23 10:03] LABS: MCHC 30.8 g/dl (32.2-35.5); MEAN CELL VOLUME 89.1 fl (79.4-94.8); MEAN PLT VOLUME 10.2 fl (9.4-12.3); RDW 16.2 % (12.4-16.4)
[2024-09-23] MEDS: PRENATAL VITAMINS W/ FOLIC ACID TABLET (FP) PO SCH (10:11)
[2024-09-23] MEDS: amLODIPine BESYLATE 2.5 MG TABLET (FP) PO SCH (10:15)
[2024-09-23] MEDS: ASPIRIN COATED 81 MG TABLET.EC PO SCH (10:15)
[2024-09-23 10:56] LABS: GLUCOSE,RANDOM 128 mg/dL (74-106)
[2024-09-23 10:57] LABS: CO2 29 mmol/L (21-32); TOT PROT 7.3 g/dl (6.4-8.2)
[2024-09-23 10:59] LABS: ALK PHOS 120 U/L (40-150)
[2024-09-23 11:02] LABS: CREATININE 0.61 mg/dL (0.55-1.3); SGOT/AST 39 U/L (5-34); SGPT/ALT 26 U/L (0-55)
[2024-09-23] MEDS: NICOTINE POLACRILEX 2 MG LOZENGE BC PRN (14:09)
[2024-09-23] MEDS: traZODone HCL 50 MG TABLET (FP) PO SCH (22:11)
[2024-09-23] MEDS: MAG HYDROX/AL HYDROX/SIMETH 30 ML UNIT-DOSE CUP PO PRN (22:14)
[2024-09-24] MEDS: ESCITALOPRAM OXALATE 20 MG TABLET PO SCH (10:39)
[2024-09-24] MEDS: DICYCLOMINE HCL 10 MG CAPSULE PO PRN (10:43)
[2024-09-24] MEDS: NICOTINE POLACRILEX 2 MG GUM BUC PRN (10:45)
[2024-09-24] MEDS: MAGNESIUM HYDROX 2400MG/30ML ORAL SUSPENSION 30 ML CUP PO PRN (20:32)
[2024-09-25] MEDS: NICOTINE 14 MG/24 HOURS TOPICAL PATCH TD SCH (12:40)
[2024-09-26] MEDS: ARTIFICIAL TEARS OPHTHALMIC DROPS OU PRN (22:10)
[2024-09-27 09:19] VITALS: BP 124/71; PULSE 74; RESP 16; TEMP 97.4
== END 2024-09-27 10:15 | disposition home or self-care (01) | DRG 897 ==
LOC: YASAS 14:55 → Y3N 16:50
PROVIDERS: ADMIT Allergy & Immunology; ATTEND Allergy & Immunology
PROC: HZ2ZZZZ Detoxification Services for Substance Abuse Treatment (ICD-10-PCS; principal; 2024-09-21)
DX: F10.230 Alcohol dependence with withdrawal, uncomplicated (principal); F11.20 Opioid dependence, uncomplicated; F17.210 Nicotine dependence, cigarettes, uncomplicated; F31.9 Bipolar disorder, unspecified; F19.24 Other psychoactive substance dependence with psychoactive substance-induced mood disorder; F41.9 Anxiety disorder, unspecified; Z21 Asymptomatic human immunodeficiency virus [HIV] infection status; G47.00 Insomnia, unspecified; H40.1132 Primary open-angle glaucoma, bilateral, moderate stage; I11.0 Hypertensive heart disease with heart failure; I50.9 Heart failure, unspecified; K21.9 Gastro-esophageal reflux disease without esophagitis
CPT/HCPCS: 36415; 80053; 80307; 85027; 86780

== ENCOUNTER 2024-10-29 11:24 | Inpatient (IN) | payer OTHER ==
[2024-10-29] MEDS ORDERED: BISMUTH SUBSALICYLATE 524 MG/30 ML PO PRN (11:46)
[2024-10-29] MEDS ORDERED: BENZOCAINE/MENTHOL (CHLORASEPTIC ) LOZENGE MM PRN (11:46)
[2024-10-29] MEDS ORDERED: BENZONATATE 200 MG CAPSULE PO PRN (11:46)
[2024-10-29] MEDS ORDERED: NALOXONE (NARCAN) HCL 4 MG/0.1 ML SPRAY NS PRN (11:46)
[2024-10-29] MEDS ORDERED: hydrOXYzine PAMOATE 25 MG CAPSULE (FP) PO PRN (11:46)
[2024-10-29] MEDS ORDERED: IBUPROFEN 400 MG TABLET (FP) PO PRN (11:46)
[2024-10-29] MEDS ORDERED: LOPERAMIDE HCL 2 MG CAPSULE PO PRN (11:46)
[2024-10-29] MEDS ORDERED: ONDANSETRON *ODT* 4 MG TABLET SL PRN (11:46)
[2024-10-29] MEDS ORDERED: POLYETHYLENE GLYCOL (HEALTHYLAX) 3350 17 GM PACKET PO PRN (11:46)
[2024-10-29] MEDS ORDERED: ALBUTEROL SO4 HFA INHALER IH PRN (11:48)
[2024-10-29 11:49] VITALS: BMI 22.3
[2024-10-29] MEDS ORDERED: PRENATAL VITAMINS W/ FOLIC ACID TABLET (FP) PO ONE (14:16)
[2024-10-29] MEDS: PRENATAL VITAMINS W/ FOLIC ACID TABLET (FP) PO SCH (14:19)
[2024-10-29] MEDS: NALTREXONE HCL 50 MG TABLET PO ONE (14:43)
[2024-10-29] MEDS: ACAMPROSATE CALCIUM 333 MG TABLET.DR PO SCH (15:00)
[2024-10-29] MEDS: ACETAMINOPHEN 325 MG TABLET (FP) PO PRN (17:23)
[2024-10-29] MEDS: MAG HYDROX/AL HYDROX/SIMETH 30 ML UNIT-DOSE CUP PO PRN (20:33)
[2024-10-29] MEDS: guaiFENesin 600 MG TABLET.ER (FP) PO PRN (20:33)
[2024-10-29] MEDS: TIMOLOL 0.5% OPHTHALMIC SOL 5 ML BOTTLE OU SCH (22:15)
[2024-10-29] MEDS: THIAMINE 100 MG TABLET PO SCH (22:16)
[2024-10-29] MEDS: MELATONIN 5 MG TABLETS PO SCH (22:16)
[2024-10-29] MEDS: ATORVASTATIN CA 40 MG TABLET (FP) PO SCH (22:17)
[2024-10-29] MEDS: CARVEDILOL 3.125 MG TABLET (FP) PO SCH (22:17)
[2024-10-29] MEDS: METHOCARBAMOL 500 MG TABLET PO PRN (22:17)
[2024-10-29] MEDS: LATANOPROST 0.005% OPHTH SOLN 2.5ML BOTTLE OU SCH (22:19)
[2024-10-29] MEDS: DICYCLOMINE HCL 10 MG CAPSULE PO PRN (22:20)
[2024-10-30] MEDS: EMPAGLIFLOZIN (JARDIANCE) 10 MG TABLET PO SCH (10:39)
[2024-10-30] MEDS: amLODIPine BESYLATE 2.5 MG TABLET (FP) PO SCH (10:39)
[2024-10-30] MEDS: FLUTICASONE PROP 0.05% 16 GM NASAL SPRAY NS SCH (10:40)
[2024-10-30] MEDS: NICOTINE 7 MG/24 HOURS TOPICAL PATCH TD SCH (10:40)
[2024-10-30] MEDS: ASPIRIN COATED 81 MG TABLET.EC PO SCH (10:41)
[2024-10-30 11:15] LABS: MCHC 31.6 g/dl (32.2-35.5); MEAN CELL VOLUME 88.2 fl (79.4-94.8); MEAN PLT VOLUME 11.0 fl (9.4-12.3); RDW 18.0 % (12.4-16.4)
[2024-10-30 11:43] LABS: GLUCOSE,RANDOM 121.0 mg/dL (74-106)
[2024-10-30 11:44] LABS: CO2 31.0 mmol/L (21-32); TOT PROT 8.3 g/dl (6.4-8.2)
[2024-10-30 11:46] LABS: ALK PHOS 119.0 U/L (40-150)
[2024-10-30 11:49] LABS: CREATININE 0.74 mg/dL (0.55-1.3); SGOT/AST 43.0 U/L (5-34); SGPT/ALT 46.0 U/L (0-55)
[2024-10-30] MEDS: POLYETHYLENE GLYCOL (HEALTHYLAX) 3350 17 GM PACKET PO SCH (13:49)
[2024-10-30] MEDS ORDERED: traZODone HCL 50 MG TABLET (FP) PO SCH (22:00)
[2024-10-30] MEDS: traZODone HCL 50 MG TABLET (FP) PO SCH (22:22)
[2024-10-31] MEDS: ESCITALOPRAM OXALATE 20 MG TABLET PO SCH (10:17)
[2024-10-31] MEDS: PANTOPRAZOLE 20 MG TABLET PO PRN (21:44)
[2024-10-31] MEDS: ACAMPROSATE CALCIUM 333 MG TABLET.DR PO SCH (22:24)
[2024-11-01] MEDS: MAGNESIUM HYDROX 2400MG/30ML ORAL SUSPENSION 30 ML CUP PO PRN (17:11)
[2024-11-01] MEDS: DOCUSATE SODIUM 100 MG CAPSULE (FP) PO SCH (19:00)
[2024-11-01] MEDS: LACTULOSE 20 GM/30 ML UDC (FOR ORAL USE ONLY) PO ONE (19:00)
[2024-11-02] MEDS: IBUPROFEN 600 MG TABLET (FP) PO PRN (17:13)
[2024-11-03 10:32] VITALS: BP 100/64; PULSE 80; RESP 12; TEMP 97.1
== END 2024-11-03 12:15 | disposition other institution (70) | DRG 897 ==
LOC: YASAS 11:24 → Y3N 14:22
PROVIDERS: ADMIT Allergy & Immunology; ATTEND Student in an Organized Health Care Education/Training Program
PROC: HZ2ZZZZ Detoxification Services for Substance Abuse Treatment (ICD-10-PCS; principal; 2024-10-29)
DX: F10.230 Alcohol dependence with withdrawal, uncomplicated (principal); F11.20 Opioid dependence, uncomplicated; F14.20 Cocaine dependence, uncomplicated; F17.210 Nicotine dependence, cigarettes, uncomplicated; Z21 Asymptomatic human immunodeficiency virus [HIV] infection status; I25.10 Atherosclerotic heart disease of native coronary artery without angina pectoris; I11.0 Hypertensive heart disease with heart failure; I50.9 Heart failure, unspecified; Z95.5 Presence of coronary angioplasty implant and graft; H40.1132 Primary open-angle glaucoma, bilateral, moderate stage; J45.20 Mild intermittent asthma, uncomplicated; K21.9 Gastro-esophageal reflux disease without esophagitis
CPT/HCPCS: 36415; 80053; 80305; 80307; 85027; 86780